=== PATIENT | male | born 1980 | race Caucasian/White ===

== ENCOUNTER 2018-04-07 12:05 | Outpatient (REF) | payer OTHER, SELFPAY ==
[2018-04-07 20:52] LABS: TSH 1.45 uIU/mL (0.358-3.74)
[2018-04-09 11:17] LABS: Lyme Ab w Rflx to Lyme Confirm Negative
== END 2018-04-07 12:25 ==
LOC: NCHCN 12:05
PROVIDERS: PCP Internal Medicine; Visit Provider Physician Assistant Medical
DX: R00.0 Tachycardia, unspecified (principal)
CPT/HCPCS: 84443; 86618

== ENCOUNTER 2018-06-24 09:12 | Outpatient (REF) | payer OTHER, SELFPAY ==
[2018-06-26 13:40] LABS: Chlamydia Result Negative; GC Result Negative; Specimen Description URINE
== END 2018-06-24 09:32 ==
LOC: NCHCN 09:12
PROVIDERS: PCP Internal Medicine; Visit Provider Physician Assistant Medical
DX: Z11.3 Encounter for screening for infections with a predominantly sexual mode of transmission (principal)
CPT/HCPCS: 87491; 87591

== ENCOUNTER 2018-07-10 16:44 | Outpatient (REF) | payer OTHER, SELFPAY ==
[2018-07-14 11:39] LABS: Syphilis Serology (RPR) Negative (Negative)
[2018-07-14 14:19] LABS: HIV-1/2 Ag & Ab Screen Negative (NEGAT)
== END 2018-07-10 17:04 ==
LOC: NCHCN 16:44
PROVIDERS: PCP Internal Medicine; Visit Provider Physician Assistant Medical
DX: Z11.3 Encounter for screening for infections with a predominantly sexual mode of transmission (principal); Z11.4 Encounter for screening for human immunodeficiency virus [HIV]
CPT/HCPCS: 87389; 86592

== ENCOUNTER 2019-12-15 16:18 | Outpatient (REF) | payer OTHER, SELFPAY ==
[2019-12-15 19:10] LABS: Iron 124 ug/dL (65-175); Total Iron Binding Capacity 313 ug/dL (250-450); Transferrin Sat 40 % (20-55)
[2019-12-15 19:39] LABS: Ferritin 156 ng/mL (26-388); TSH (W/Ref FT4) 1.17 uIU/mL (0.36-3.74); Vitamin B12 594 pg/mL (193-986)
[2019-12-17 04:40] LABS: Vitamin D 25 Total 18.1 ng/ml (30-100)
== END 2019-12-15 16:38 ==
LOC: NCHCN 16:18
PROVIDERS: PCP Internal Medicine; Visit Provider Physician Assistant
DX: R06.00 Dyspnea, unspecified (principal); R07.89 Other chest pain; R00.2 Palpitations
CPT/HCPCS: 82306; 82607; 82728; 83540; 83550; 84443

== ENCOUNTER → 2020-03-09 13:57 | Outpatient (REF) | payer OTHER, SELFPAY ==
[2020-03-09 15:01] LABS: Absolute Basophil Count 0.06 10^3/uL (0.0-0.2); Absolute Eosinophil Count 0.18 10^3/uL (0.0-0.7); Absolute Lymphocyte Count 1.81 10^3/uL (1.2-3.4); Absolute Neutrophil Count 2.08 10^3/uL (1.2-6.7); Basophils % 1.3; Eosinophils % 3.8; HCT 45.8 % (40.0-50.0); HGB 15.7 g/dL (13.5-17.5); Lymphocytes % 38.3; MCH 30.7 pg (27.0-33.0); MCHC 34.3 % (32.0-36.0); MCV 89.5 fL (80-95); MPV 9.6 fL (8.0-11.0); Monocytes % 12.7; Neutrophils % 43.9; Nucleated RBC 0 %; Platelet Count 284 10^3/uL (130-400); RBC 5.12 10^6/uL (4.36-5.78); RDW 11.9 % (11.8-14.1); RDW-SD 38.9 fL; WBC 4.73 10^3/uL (4.4-10.8)
[2020-03-09 15:24] LABS: ALT 45 U/L (16-63); AST 33 U/L (15-37); Albumin 3.6 g/dL (3.4-5.0); Alkaline Phosphatase 63 U/L (46-116); Anion Gap 9.2 mmol/L (3-11); BUN 19 mg/dL (7-18); Bilirubin, Total 0.7 mg/dL (0.2-1.0); C-Reactive Protein 0.43 mg/dL (0.0-0.3); CO2 24.8 mmol/L (21.0-32.0); CREATININE 1.04 mg/dL (0.70-1.30); Calcium 8.9 mg/dL (8.5-10.1); Chloride 103 mmol/L (98-107); Glucose 104 mg/dL (74-106); Potassium 4.1 mmol/L (3.5-5.1); Sodium 137 mmol/L (136-145); TSH (W/Ref FT4) 1.21 uIU/mL (0.36-3.74); Total Protein 7.6 g/dL (6.4-8.2)
[2020-03-09 21:29] LABS: Rheumatoid Factor <8.6 IU/mL (<12.0)
[2020-03-10 10:10] LABS: Lyme Ab w Rflx to Lyme Confirm Negative (Negative)
[2020-03-10 14:17] LABS: ANA Interpretation Negative (Negative)
[2020-03-15 11:48] LABS: Anaplasma phagocytophilum Negative (Negative); B. miyamotoi PCR Negative (Negative); Babesia divergens/MO-1 Negative (Negative); Babesia duncani Negative (Negative); Babesia microti Negative (Negative); Ehrlichia chaffeensis Negative (Negative); Ehrlichia ewingii/canis Negative (Negative); Ehrlichia muris eauclairensis Negative (Negative)
== END ==
LOC: NCHCN 13:57
PROVIDERS: PCP Internal Medicine; Visit Provider Family Medicine
DX: R53.83 Other fatigue (principal); M25.59 Pain in other specified joint
CPT/HCPCS: 80053; 87798; 84443; 85025; 86038; 86140; 86431; 86618

== ENCOUNTER 2020-12-09 09:18 | Outpatient (CLI) | payer OTHER, SELFPAY ==
--- NOTE | 2020-12-09 13:42 | NUR.NOTE ---
Nursing Note: Pt arrived to [facility] infusion ambulating independently. RN noted Pt to be Ashen, SOB, advised of Chest pain 5/10, which worsens when he coughs. V/S 131/80, P107, T100.7, RR22, O2 90%. Lungs clear b/l upper lobes and LLL, RLL diminished. Heart Tachycardic S1/S2, Pt coughing productive cough, sitting in tripod position after coughing and stated he was SOB. RN consulted Mariah Taveras RN Manager of COVID unit, RN advised Pt should be seen in ED prior to receiving infusion. RN advised Pt d/t current symptoms he should be evaluated by ED prior to infusion. Pt verbalized agreement, RN and EMT Nayely assisted Pt to ED via wheelchair. Report given to JOSE Ledesma in ED.
== END 2020-12-09 09:19 | disposition home or self-care (01) ==
LOC: INF 09:20
PROVIDERS: PCP Internal Medicine; Visit Provider Family Medicine
DX: U07.1 COVID-19 (principal); R06.02 Shortness of breath

== ENCOUNTER 2020-12-09 13:23 | Inpatient (IN) | payer OTHER, MEDICAID, SELFPAY ==
[2020-12-09] VITALS (73 sets, daily range): BP systolic 122–145; BP diastolic 38–80; PULSE 76–100; RESP 12–32; TEMP 37–37.8; O2SAT 92–97
--- NOTE | 2020-12-09 13:15 | RT.EKG_ITS ---
APPROVED REPORT Exam: Resting ECG Reason for Exam: chest pain Patient Location: E HR:97 bpm ECG Measurements Heart Rate 97 AXIS KS 144 P 33 QRSd 91 QRS 27 QT 345 T -5 QTc 440 Conclusion Sinus rhythm...normal P axis, V-rate 60- 99 Nonspecific T abnormalities, lateral leads...T <-0.10mV, I aVL V5 V6 Physician: no stemi. Q3T3
[2020-12-09] MEDS: Ondansetron 4 MG/2 ML VIAL IVP (14:11)
[2020-12-09] MEDS: Normal Saline 1,000 ML 1000 ML IV ×2 (14:11→15:09)
[2020-12-09] MEDS: ACETAMINOPHEN 1,000 MG/100 ML BTL 400 MG IVPB (14:11)
[2020-12-09 14:24] LABS: Abs Immature Grans 0.04 10^3/uL (0.0-0.06); Absolute Basophil Count 0.01 10^3/uL (0.0-0.2); Absolute Lymphocyte Count 0.63 10^3/uL (1.2-3.4); Absolute Monocyte Count 0.34 10^3/uL (0.1-0.8); Absolute Neutrophil Count 5.88 10^3/uL (1.2-6.7); Basophils % 0.1; HCT 41.7 % (40.0-50.0); HGB 14.6 g/dL (13.5-17.5); Immature Grans % 0.6; Lymphocytes % 9.1; MCH 30.8 pg (27.0-33.0); MPV 9.4 fL (8.0-11.0); Monocytes % 4.9; Neutrophils % 85.3; Nucleated RBC 0 %; Platelet Count 211 10^3/uL (130-400); RBC 4.74 10^6/uL (4.36-5.78); RDW 11.8 % (11.8-14.1)
[2020-12-09 14:25] LABS: Lactate 1.7 mmol/L (0.6-1.4)
[2020-12-09 14:39] LABS: Magnesium 2.3 mg/dL (1.8-2.4)
[2020-12-09 14:40] LABS: Diff Comment Agrees w/ Instrument; RBC Morphology Normal
[2020-12-09 14:55] LABS: ALT 108 U/L (16-63); AST 271 U/L (15-37); Albumin 2.9 g/dL (3.4-5.0); Alkaline Phosphatase 50 U/L (46-116); BUN 17 mg/dL (7-18); Bilirubin, Total 0.9 mg/dL (0.2-1.0); C-Reactive Protein 15.62 mg/dL (0.0-0.3); CREATININE 1.1 mg/dL (0.70-1.30); Calcium 8.9 mg/dL (8.5-10.1); Chloride 97 mmol/L (98-107); D-Dimer 2001 ng/mlFEU (<500); Glucose 123 mg/dL (74-106); NT-proBNP 30 pg/mL (<300); Potassium 3.3 mmol/L (3.5-5.1); Sodium 134 mmol/L (136-145); Total Protein 7.9 g/dL (6.4-8.2)
[2020-12-09 14:56] LABS: Creatine Kinase > 10000 U/L (39-308)
[2020-12-09 14:57] LABS: Troponin I < 0.05 ng/mL (<0.06)
[2020-12-09 15:51] LABS: Ferritin 1669 ng/mL (26-388)
--- NOTE | 2020-12-09 15:57 | ED.GENADUL_ITS ---
Discharge Plan Disposition Patient Disposition: [facility] INPATIENT Condition: Stable Discharge Details Clinical Impression: COVID-19, Rhabdomyolysis, Hypoxia Admit Date/Time: 12/09/20 19:05 Admit Provider: Aditya Acuña Attending Provider: Aditya Acuña Primary Care Provider: Odilon Alejo ED Provider: Krysta Nunn Discharge Data Discharge Date/Time-TO BE ENTERED AT DEPARTURE: 12/09/20 20:13 Medical Decision Making <MARIAM Gruber Last Filed: 12/10/20 20:03> Patient is satting at 90% on room air in a supine position, I am unable to ambulate the patient secondary to weakness He is not actively vomiting His CPK is greater than 10,000 this is concerning, his D-dimer is 2000, CTA pending Troponin is negative and EKG shows some nonspecific T wave changes in the lateral leads, no prior to compare, his chest pain is exacerbated by coughing and deep breathing. Denies any history of cardiac disease. Denies any new calf pain or swelling. Denies prior history of coagulopathy. Lactate 1.7 Received 2 L of saline for the elevation of CPK and suspected rhabdomyolysis related to COVID-19, he has an infusion at 125 an hour and has received 20 mEq of potassium supplement His CRP is elevated at 15 and his LFTs are elevated as well Patient will be signed out to Krysta dias PA-C pending CTA evaluation Patient agreeable to admission at this time Resting comfortably on 1 L of oxygen, 95 <MARIA M Scruggs - Last Filed: 12/09/20 19:10> Care transition myself from Ramandeep Castro PA-C. Please see her initial note regarding history, presentation and exam. In brief, patient is a pleasant 40-year-old male presenting today with chief complaint of shortness of breath. Patient is Covid positive. Is currently needing 1 L of oxygen to be comfortable and maintain O2 above 90%. Patient was not found to have an elevated CK and is in rhabdomyolysis. D-dimer was ordered and found to be 2000. Pulmonary critical care, CTA for PE is pending. Ultimately, patient will need admission for his hypoxemia as well as rhabdomyolysis. Of note, GFR is over 60. FINDINGS: Pulmonary arteries: Normal. No pulmonary emboli. Aorta: Unremarkable. No aortic aneurysm. No aortic dissection. Lungs: Unremarkable. No consolidation. No masses. Pleural spaces: Unremarkable. No pneumothorax. No pleural effusion. Heart: Unremarkable. No cardiomegaly. No pericardial effusion. Lymph nodes: Unremarkable. No enlarged lymph nodes. Diaphragm: Small hiatal hernia. Bones/joints: Unremarkable. No acute fracture. Soft tissues: Unremarkable. Other findings: Diffuse multi lobar areas of well demarcated ground-glass opacities. IMPRESSION: 1. No evidence of pulmonary embolism. 2. Moderate multi lobar atypical pneumonia. Differential diagnosis includes viral (including COVID19), fungal or bacterial pathogens. 3. Small hiatal hernia. ] Discussed findings with the patient. He has received Dexamethasone. Provider held off on remdesivir secondary to the transaminitis and recommendation from pharmacy. Patient continues to be receiving IV hydration as well 1 L nasal cannula oxygen for his hypoxemia. Will consult hospitalist regarding admission Consulted with hospitalist who agreed to admission. Enrique stop IV fluids. HPI <MARIA M Gruber - Last Filed: 12/10/20 20:03> General Mode of arrival: ambulatory . Date/Time Provider Initiated Documentation: 12/09/20 13:25 . Limitations to Documentation: no limitations . Information obtained by: patient . HPI Narrative: This 40-year-old male who is otherwise healthy aside from history of tachycardia which for which he takes metoprolol and chronic Lyme for which he takes tetracycline presents with report of weakness, vomiting, shortness of breath, dyspnea with exertion. Patient states that he has been sick since Saturday of last week, he is on day 9 and has been Covid positive last . He is feeling fine 3 days ago and his symptoms began to worsen. He denies any falls or injuries. His son is sick with similar symptoms. He is not vaccinated. He does not smoke tobacco. Denies history of COPD and asthma. Patient vomiting several times a day. Denies any diarrhea. Has had some intermittent chest discomfort which she attributes to coughing. Related Data Home Medications Medication Instructions Recorded Confirmed [id number] 2 tab PO ONCE 12/09/20 12/09/20 [Excedrin Extra Strength] metoprolol tartrate 25 mg PO BID 12/09/20 12/09/20 tetracycline 250 mg PO TID 12/09/20 12/09/20 Allergies Allergy/AdvReac Type Severity Reaction Status Date / Time Sulfa (Sulfonamide Allergy Unknown Verified 12/09/20 14:05 Antibiotics) General Stated Complaint: GenMedical JC: 2 Review of Systems <MARIA M Gruber Last Filed: 12/10/20 20:03> All systems reviewed & are unremarkable except as noted in HPI and below PFSH <MARIA M Gruber - Last Filed: 12/10/20 20:03> Medical History (Updated 12/10/20 @ 01:36 by Aditya Acuña) History of Lyme disease History of tachycardia Surgical History (Updated 12/10/20 @ 01:28 by Aditya Acuña) History of arthroscopic knee surgery Right knee meniscus surgery Social History Smoking/Tobacco Use Status: Never Smoking risk assessment performed?: Yes Alcohol Intake: never Drug use: Never Substance use type: does not use Do you feel safe at home: Yes Do you feel safe in your relationship?: Yes Exam <MARIA M Gruber Last Filed: 12/10/20 20:03> Const General: cooperative and comfortable HENMT Mouth: oral mucosae normal Eyes Pupils: PERRL Resp Effort & Inspection: normal respiratory effort and able to speak in complete sentences Cardio Rate: regular rate Rhythm: regular rhythm GI Inspection: normal to inspection Auscultation: normal bowel sounds Skin General skin exam: no rashes or lesions noted Wounds: no wounds Neuro General: patient alert and patient oriented x3 Extrem Other: Distal pulses intact, no peripheral edema Course <MARIA M Gruber Last Filed: 12/10/20 20:03> Vital Signs Vital signs: Vital Signs Pulse 98 H 12/09/20 13:40 Respiratory Rate 22 12/09/20 13:40 Blood Pressure 125/79 12/09/20 13:40 Temperature 37.8 C H 12/09/20 14:53 Temperature Source Skin 12/09/20 14:53 Pulse 91 H 12/09/20 14:53 Pulse 90 12/09/20 14:40 Respiratory Rate 28 H 12/09/20 14:53 Respiratory Effort 12/09/20 14:21 Respiratory Depth Normal 12/09/20 14:21 Respiratory Pattern Normal 12/09/20 14:21 Blood Pressure 126/68 12/09/20 14:53 Blood Pressure Mean 85 12/09/20 14:31 Blood Pressure Position Sitting 12/09/20 13:57 Pulse Oximetry 96 12/09/20 15:06 Oxygen Delivery Method Nasal Cannula 12/09/20 15:06 Oxygen Flow Rate 1.5 12/09/20 15:06 Pain Level 8 12/09/20 13:57 Comment 12/09/20 14:53 Lab/Test Results Lab/Test Results: 12/09/20 14:45 Blood Blood Culture - Pending 12/09/20 14:08 Blood Blood Culture - Pending Laboratory Tests Range/Units 12/09/20 12/09/20 12/09/20 14:08 14:08 14:08 WBC (4.4-10.8) 10^3/uL 6.90 RBC (4.36-5.78) 10^6/uL 4.74 Hgb (13.5-17.5) g/dL 14.6 Hct (40.0-50.0) % 41.7 MCV (80-95) fL 88.0 MCH (27.0-33.0) pg 30.8 MCHC (32.0-36.0) % 35.0 RDW (11.8-14.1) % 11.8 Plt Count (130-400) 10^3/uL 211 MPV (8.0-11.0) fL 9.4 Immature Gran % 0.6 Neutrophils % 85.3 Lymphocytes % 9.1 Monocytes % 4.9 Eosinophils % 0.0 Basophils % 0.1 Nucleated RBC % % 0 Absolute Neutrophils (1.2-6.7) 10^3/uL 5.88 Absolute Lymphocytes (1.2-3.4) 10^3/uL 0.63 L Absolute Monocytes (0.1-0.8) 10^3/uL 0.34 Absolute Eosinophils (0.0-0.7) 10^3/uL 0.00 Absolute Basophils (0.0-0.2) 10^3/uL 0.01 RBC Morphology Normal D-Dimer (<500) ng/mlFEU 2000 H VBG Lactate (0.6-1.4) mmol/L Sodium (136-145) mmol/L 134 L Potassium (3.5-5.1) mmol/L 3.3 L Chloride (98-107) mmol/L 97 L Carbon Dioxide (21.0-32.0) mmol/L 29.0 Anion Gap (3-11) mmol/L 8.0 BUN (7-18) mg/dL 17 Creatinine (0.70-1.30) mg/dL 1.1 Estimated GFR/1.73 m2 (mL/min/1.73m2) >= 60.00 Glucose (74-106) mg/dL 123 H Calcium (8.5-10.1) mg/dL 8.9 Magnesium (1.8-2.4) mg/dL Ferritin (26-388) ng/mL 1669 H Total Bilirubin (0.2-1.0) mg/dL 0.9 AST (15-37) U/L 271 H ALT (16-63) U/L 108 H Alkaline Phosphatase (46-116) U/L 50 Creatine Kinase (39-308) U/L > 39210 H Troponin I (<0.06) ng/mL < 0.05 C-Reactive Protein (0.0-0.3) mg/dL 15.62 H NT-Pro-B Natriuret Pep (<300) pg/mL 30 Total Protein (6.4-8.2) g/dL 7.9 Albumin (3.4-5.0) g/dL 2.9 L Range/Units 12/09/20 12/09/20 14:08 14:08 WBC (4.4-10.8) 10^3/uL RBC (4.36-5.78) 10^6/uL Hgb (13.5-17.5) g/dL Hct (40.0-50.0) % MCV (80-95) fL MCH (27.0-33.0) pg MCHC (32.0-36.0) % RDW (11.8-14.1) % Plt Count (130-400) 10^3/uL MPV (8.0-11.0) fL Immature Gran % Neutrophils % Lymphocytes % Monocytes % Eosinophils % Basophils % Nucleated RBC % % Absolute Neutrophils (1.2-6.7) 10^3/uL Absolute Lymphocytes (1.2-3.4) 10^3/uL Absolute Monocytes (0.1-0.8) 10^3/uL Absolute Eosinophils (0.0-0.7) 10^3/uL Absolute Basophils (0.0-0.2) 10^3/uL RBC Morphology D-Dimer (<500) ng/mlFEU VBG Lactate (0.6-1.4) mmol/L 1.7 H Sodium (136-145) mmol/L Potassium (3.5-5.1) mmol/L Chloride (98-107) mmol/L Carbon Dioxide (21.0-32.0) mmol/L Anion Gap (3-11) mmol/L BUN (7-18) mg/dL Creatinine (0.70-1.30) mg/dL Estimated GFR/1.73 m2 (mL/min/1.73m2) Glucose (74-106) mg/dL Calcium (8.5-10.1) mg/dL Magnesium (1.8-2.4) mg/dL 2.3 Ferritin (26-388) ng/mL Total Bilirubin (0.2-1.0) mg/dL AST (15-37) U/L ALT (16-63) U/L Alkaline Phosphatase (46-116) U/L Creatine Kinase (39-308) U/L Troponin I (<0.06) ng/mL C-Reactive Protein (0.0-0.3) mg/dL NT-Pro-B Natriuret Pep (<300) pg/mL Total Protein (6.4-8.2) g/dL Albumin (3.4-5.0) g/dL Sign Out <MARIA M Gruber - Last Filed: 12/10/20 20:03> Sign Out Data: Sign Out Comment: pending cta and admission Last updated by Ramandeep Castro PA at 12/09/20 16:13
[2020-12-09] MEDS: Dexamethasone 4 MG/ML VIAL 6 MG IVP (16:21)
[2020-12-09] MEDS: Potassium Chloride 20 MEQ TABCR PO (16:22)
[2020-12-09 16:47] LABS: Bilirubin Negative (Negative); Blood Moderate (Negative); Clarity Clear (Clear); Glucose Negative (Negative); Ketones 80 mg/dL (Negative); Leukocyte Esterase Negative (Negative); Nitrite Negative (Negative); Specific Gravity >= 1.030 (1.005-1.025); pH 6.5 (5-8)
[2020-12-09 16:54] LABS: Bacteria Moderate HPF (Negative); C & S Indicated? Yes; Casts 0-2 Hyaline LPF (Negative); Crystals Negative HPF (Negative); Epithelial Cells Few HPF (Negative); Mucus Moderate (Negative)
[2020-12-09] MEDS: Normal Saline 1,000 ML 125 ML IV (16:58)
--- NOTE | 2020-12-09 17:09 | DI.CT_ITS ---
Exam(s) CT CHEST PE CTA EXAM: CT CHEST PE CTA CLINICAL HISTORY: covid +, SOB, elevated dimer. TECHNIQUE: Imaging Protocol: CT angiography of the chest was performed using pulmonary embolus gurmeet col. Multi planar reconstructions were performed. CONTRAST MATERIAL: Intravenous: Omnipaque 350 Contrast volume: 100 cc COMPARISON: No exams were available for comparison FINDINGS: CHEST: PULMONARY ARTERIES: Less than optimal bolus injection. No central pulmonary emboli. No obvious embo li more peripherally realized limitations of this study. LUNGS: There are extensive confluent ground-glass infiltrates throughout both lungs, relatively symme trical and suspicious for Covid-19 pneumonia.. There are no pleural effusions. No significant focal findings in trachea and mainstem bronchi. MEDIASTINUM: There is slightly enlarged lymph nodes in both hilum. There is subcarinal adenopathy. CARDIAC: Heart size is upper normal. There is no pericardial effusion.Caliber of the thoracic aorta is within normal limits. There is no significant shift of the interventricular septum. PARTIALLY VISUALIZED UPPERMOST ABDOMEN: Hepatic steatosis. No adrenal masses. Moderate-sized hiatal hernia. OSSEOUS: No significant osseous lesions.. IMPRESSION: 1. Main finding here is extensive bilateral relatively symmetrical lung infiltrates consistent with p robable Covid-19 pneumonia..There are no pleural effusions but there is mild bilateral hilar adenopat hy and significant subcarinal adenopathy. 2. No obvious pulmonary emboli. 3. Hiatal hernia. Hepatic steatosis. Study 1st read by [facility]. RADIATION DOSE DELIVERED: 520.36mGy.cm Total DLP DATA REPOSITORY: All CT scans at this facility are submitted to the National Radiology Data Registry (NRDR) Dose Index Registry (DIR) with the [employer] ([employer]). RADIATION OPTIMIZATION: All CT scans at this facility use at least one of these dose optimization te chniques: automated exposure control; mA and/or kV adjustment per patient size (includes targeted exa ms where dose is matched to clinical indication); or iterative reconstruction.
[2020-12-09] MEDS: Normal Saline - Diluent 50 ML VIAL IV (17:59)
[2020-12-09] MEDS: Normal Saline Flush 10 ML SYR IVP (18:00)
[2020-12-09] MEDS: Omnipaque 350 MG/ML 100 ML BTL IJ (18:00)
--- NOTE | 2020-12-09 18:42 | DI.VRAD_ITS ---
PROCEDURE INFORMATION: Exam: CTA Chest With Contrast Exam date and time: 12/09/2020 6:11 PM Age: 40 years old Clinical indication: Other: Covid +, SOB, elevated d dimer TECHNIQUE: Imaging protocol: Computed tomographic angiography of the chest with contrast. 3D rendering (Not supervised by radiologist): MIP and/or 3D reconstructed images were created by the technologist. Radiation optimization: All CT scans at this facility use at least one of these dose optimization techniques: automated exposure control; mA and/or kV adjustment per patient size (includes targeted exams where dose is matched to clinical indication); or iterative reconstruction. Contrast material: OMNIPAQUE 350; Contrast volume: 100 ml; Contrast route: INTRAVENOUS (IV); COMPARISON: No relevant prior studies available. FINDINGS: Pulmonary arteries: Normal. No pulmonary emboli. Aorta: Unremarkable. No aortic aneurysm. No aortic dissection. Lungs: Unremarkable. No consolidation. No masses. Pleural spaces: Unremarkable. No pneumothorax. No pleural effusion. Heart: Unremarkable. No cardiomegaly. No pericardial effusion. Lymph nodes: Unremarkable. No enlarged lymph nodes. Diaphragm: Small hiatal hernia. Bones/joints: Unremarkable. No acute fracture. Soft tissues: Unremarkable. Other findings: Diffuse multi lobar areas of well demarcated ground-glass opacities. IMPRESSION: 1. No evidence of pulmonary embolism. 2. Moderate multi lobar atypical pneumonia. Differential diagnosis includes viral (including COVID-19), fungal or bacterial pathogens. 3. Small hiatal hernia. Dictated and Authenticated by: Keven Montero MD. Ordering:LAYLA Chaparro MD
[2020-12-09 19:15] LABS: Source Nasal/Nares
[2020-12-09 19:56] LABS: COVID-19 PCR POSITIVE (Negative)
--- NOTE | 2020-12-09 19:57 | NUR.NOTE ---
Lab calls critical result; Covid positive. BP, PA notified.Nursing Note:
[2020-12-09 20:23] LABS: Procalcitonin < 0.1 ng/mL
[2020-12-09] MEDS: Cholecalciferol (Vitamin D3) 1,000 UNIT TAB 2000 UNITS PO (22:12)
[2020-12-09] MEDS: Enoxaparin 40 MG/0.4 ML SYR SC (22:12)
[2020-12-09] MEDS: Famotidine 20 MG TAB PO (22:13)
[2020-12-09] MEDS: Zinc Sulfate 220 MG TAB PO (22:13)
--- NOTE | 2020-12-09 23:29 | HPE_ITS ---
Date of service: 12/09/20 Time of Service: 19:00 Assessment and Plan Assessment and plan (1) COVID-19: Status: Acute Assessment and plan: Continue daily Decadron. Begin Pepcid. Because of his LFTs elevation I have withheld starting him on atorvastatin or Remdesivir. I will start the patient on baricitinib based on current recommendations from up-to-date. If his LFTs continue to climb we will have to withhold baricitinib. If his LFTs remain stable or decline we will add Remdesivir. I have encouraged patient to practice proning and sitting up and walk around the room to prevent atelectasis. I have ordered incentive spirometry as well as Acapella device. Because of the fevers we have ordered blood cultures and he will be started on Rocephin and doxycycline intravenously. Initiate Lovenox 30 mg subcutaneously BID for DVT prophylaxis. Monitor daily inflammatory markers including CRP and D-dimer and ferritin. Begin vitamin C and vitamin D as well as zinc and multivitamin. (2) Rhabdomyolysis: Status: Acute Assessment and plan: Monitor renal function and daily CPK. Avoid additional IV fluids as long as he is making adequate urine output and BUN/creatinine remained stable. Qualifiers: Rhabdomyolysis type: non-traumatic Qualified Code(s): M62.82 - Rhabdomyolysis (3) Elevated transaminase level: Status: Acute Assessment and plan: Probably due to Covid induced injury. However will check hepatitis studies as well as HIV status. If LFTs continue to climb we will need to get an ultrasound of his liver. (4) DVT prophylaxis: Status: Acute Assessment and plan: Lovenox 40 mg was given tonight. We will change her to 30 mg twice daily starting tomorrow. Continue to monitor daily D-dimer. CTA of the chest was negative for PE and he has no physical evidence for DVT. History of Present Illness History of Present Illness Chief Complaint: Dyspnea Narrative: 40-year-old male non-smoker with no history of chronic lung or cardiac disease but a remote history of Lyme disease with chronic arthralgias for which she chronically takes doxycycline and a history of a tachycardia for which he takes metoprolol presented to the emergency department with 8 days of fatigue, nausea vomiting and now shortness of breath that began yesterday and worsened today. Denies any purulent sputum or hemoptysis. Some mild chest pain only with coughing. Coughing has worsened in the last couple of days. He had a positive Covid test last after being exposed to Covid by his son who is 15 years old. Neither the patient nor his son have been vaccinated. Patient denies any calf pain or swelling or leg swelling. Patient had presented today in the outpatient infusion center to receive monoclonal antibody infusion for his COVID-19 but when i nfusion nurses found him to be coughing and short of breath and to be mildly hypoxemic he was sent to the emergency department. Evaluation ER included routine labs including a CBC that was unremarkable except for a mild lymphocytopenia, CMP demonstrated hypokalemia of 3.3 with normal renal function with a creatinine 1.1. LFTs were increased with AST of 271 and ALT of 108 with a normal alkaline phosphatase of 50 and a total bilirubin that was normal at 0.9. CK was elevated greater than 10,000 and his CRP was increased to 15.6. Ferritin was high at 1669. Procalcitonin was not checked but has since been ordered and came back normal at less than 0.1. His D-dimer was elevated at 2000. Patient underwent CT scan of his chest with contrast to rule out a PE. No PE was seen but he has moderate multi lobar atypical pneumonia and small hiatal hernia. Patient was given 2 L of fluids in the emergency department for treatment of his rhabdomyolysis. He was started on Decadron 6 mg IV. Remdesivir was not given due to his elevated LFTs. He was mildly hypoxic but this was readily corrected with 1 to 2 L of oxygen per nasal cannula. He is now admitted to the medical/surgical unit for treatment of Covid pneumonia. His pneumonia is classified as mild to moderate. I am withholding remdesivir until we see what is repeat LFTs are in the morning. If his liver enzymes do not continue to increase and if his oxygen requirements are increasing then I will consider adding Remdesivir and baricitinib. Review of Systems All systems reviewed & are unremarkable except as noted in HPI and below PFSH Medical History (Updated 12/10/20 @ 01:36 by Aditya Acuña) History of Lyme disease History of tachycardia Surgical History (Updated 12/10/20 @ 01:28 by Aditya Acuña) History of arthroscopic knee surgery Right knee meniscus surgery Social History (Reviewed 12/10/20 @ 01:27 by Aditya Hawkins Smoking/Tobacco Use Status: Never Smoking risk assessment performed?: Yes Alcohol Intake: never Drug use: Never Substance use type: does not use Do you feel safe at home: Yes Do you feel safe in your relationship?: Yes Meds Allergies and Home Medications Allergies Allergy/AdvReac Type Severity Reaction Status Date / Time Sulfa (Sulfonamide Allergy Unknown Verified 12/09/20 14:05 Antibiotics) Home Medications Medication Instructions Recorded Confirmed Type [id number] 2 tab PO ONCE 12/09/20 12/09/20 History [Excedrin Extra Strength] metoprolol tartrate 25 mg PO BID 12/09/20 12/09/20 History tetracycline 250 mg PO TID 12/09/20 12/09/20 History Exam Narrative Exam Narrative: Obese white male lying in bed flat on his back not acutely dyspneic. Not tachypneic and not using accessory respiratory muscles. He is alert and oriented person place time circumstance. HEENT is unremarkable. Neck is supple nontender no JVD normal carotid pulses no bruits Lungs with diffuse fine rales bilaterally in all lorenzo. No rhonchi no wheezing Heart is regular rate and rhythm no murmur rub or gallop Abdomen is obese soft nontender no palpable masses no guarding no organomegaly Lower extremities without peripheral cyanosis or edema no calf tenderness. Upper extremities with normal range of motion and strength. Neuro exam grossly intact no focal cranial nerve deficits no focal motor or sensory deficits. Results Labs Result diagrams: 12/09/20 14:08 12/09/20 14:08 Labs: Laboratory Results - last 24 hr 12/09/20 12/09/20 12/09/20 14:08 14:08 14:08 WBC 6.90 RBC 4.74 Hgb 14.6 Hct 41.7 MCV 88.0 MCH 30.8 MCHC 35.0 RDW 11.8 Plt Count 211 MPV 9.4 Immature Gran % 0.6 Neutrophils % 85.3 Lymphocytes % 9.1 Monocytes % 4.9 Eosinophils % 0.0 Basophils % 0.1 Nucleated RBC % 0 Absolute Neutrophils 5.88 Absolute Lymphocytes 0.63 L Absolute Monocytes 0.34 Absolute Eosinophils 0.00 Absolute Basophils 0.01 RBC Morphology Normal D-Dimer 2001 H VBG Lactate Sodium 134 L Potassium 3.3 L Chloride 97 L Carbon Dioxide 29.0 Anion Gap 8.0 BUN 17 Creatinine 1.1 Estimated GFR/1.73 m2 >= 60.00 Glucose 123 H Calcium 8.9 Magnesium Ferritin 1669 H Total Bilirubin 0.9 AST 271 H ALT 108 H Alkaline Phosphatase 50 Creatine Kinase > 56968 H Troponin I < 0.05 C-Reactive Protein 15.62 H NT-Pro-B Natriuret Pep 30 Total Protein 7.9 Albumin 2.9 L Procalcitonin Urine Color Urine Clarity Urine pH Ur Specific [place] Urine Protein Urine Ketones Urine Blood Urine Nitrite Urine Bilirubin Urine Urobilinogen Ur Leukocyte Esterase Urine RBC Urine WBC Ur Epithelial Cells Urine Crystals Urine Bacteria Urine Casts Urine Mucus Ur Culture Indicated? Urine Glucose COVID-19 Source SARS-CoV-2 (PCR) Patient ABO/Rh 12/09/20 12/09/20 12/09/20 14:08 14:08 16:15 WBC RBC Hgb Hct MCV MCH MCHC RDW Plt Count MPV Immature Gran % Neutrophils % Lymphocytes % Monocytes % Eosinophils % Basophils % Nucleated RBC % Absolute Neutrophils Absolute Lymphocytes Absolute Monocytes Absolute Eosinophils Absolute Basophils RBC Morphology D-Dimer VBG Lactate 1.7 H Sodium Potassium Chloride Carbon Dioxide Anion Gap BUN Creatinine Estimated GFR/1.73 m2 Glucose Calcium Magnesium 2.3 Ferritin Total Bilirubin AST ALT Alkaline Phosphatase Creatine Kinase Troponin I C-Reactive Protein NT-Pro-B Natriuret Pep Total Protein Albumin Procalcitonin Urine Color Yellow Urine Clarity Clear Urine pH 6.5 Ur Specific [place] >= 1.030 H Urine Protein 100 H Urine Ketones 80 H Urine Blood Moderate H Urine Nitrite Negative Urine Bilirubin Negative Urine Urobilinogen 1.0 H Ur Leukocyte Esterase Negative Urine RBC 5-10 H Urine WBC 3-5 Ur Epithelial Cells Few Urine Crystals Negative Urine Bacteria Moderate Urine Casts 0-2 Hyaline Urine Mucus Moderate Ur Culture Indicated? Yes Urine Glucose Negative COVID-19 Source SARS-CoV-2 (PCR) Patient ABO/Rh 12/09/20 12/09/20 12/09/20 19:12 19:30 19:50 WBC RBC Hgb Hct MCV MCH MCHC RDW Plt Count MPV Immature Gran % Neutrophils % Lymphocytes % Monocytes % Eosinophils % Basophils % Nucleated RBC % Absolute Neutrophils Absolute Lymphocytes Absolute Monocytes Absolute Eosinophils Absolute Basophils RBC Morphology D-Dimer VBG Lactate Sodium Potassium Chloride Carbon Dioxide Anion Gap BUN Creatinine Estimated GFR/1.73 m2 Glucose Calcium Magnesium Ferritin Total Bilirubin AST ALT Alkaline Phosphatase Creatine Kinase Troponin I C-Reactive Protein NT-Pro-B Natriuret Pep Total Protein Albumin Procalcitonin < 0.1 Urine Color Urine Clarity Urine pH Ur Specific [place] Urine Protein Urine Ketones Urine Blood Urine Nitrite Urine Bilirubin Urine Urobilinogen Ur Leukocyte Esterase Urine RBC Urine WBC Ur Epithelial Cells Urine Crystals Urine Bacteria Urine Casts Urine Mucus Ur Culture Indicated? Urine Glucose COVID-19 Source Nasal/Nares SARS-CoV-2 (PCR) POSITIVE A* Patient ABO/Rh O Positive Last Vital Signs Temp 37.7 C H 12/09/20 20:25 Pulse 91 H 12/09/20 20:47 Resp 16 12/09/20 20:25 BP 136/79 12/09/20 20:25 Pulse Ox 94 12/09/20 20:25
[2020-12-10] VITALS (22 sets, daily range): BP systolic 108–139; BP diastolic 61–84; PULSE 75–101; RESP 16–22; TEMP 36.4–38.6; O2SAT 89–95
[2020-12-10] MEDS: Melatonin 3 MG TAB 6 MG PO (00:10)
[2020-12-10] MEDS: Acetaminophen 325 MG TAB 650 MG PO (00:24)
[2020-12-10] MEDS: DOXYCYCLINE 100 MG in Normal Saline 100 ML IVPB ×2 (03:48→15:54)
[2020-12-10] MEDS: Normal Saline Flush 10 ML SYR IVP ×3 (03:49→08:21)
[2020-12-10] MEDS: cefTRIAXone 2 GM/50 ML BAG IV (05:43)
--- NOTE | 2020-12-10 07:35 | INITIAL_ITS ---
- If Service Date Differs Date of service: 12/10/20 Time of Service: 07:36 Care Management Initial Assess REASON FOR HOSPITALIZATION:: Covid 19 pneumonia, Elevated transaminase level PAST MEDICAL HISTORY/PAST SURGICAL HISTORY:: Medical History (Updated 12/10/20 @ 01:36 by Aditya Acuña). History of Lyme disease. History of tachycardia. Surgical History (Updated 12/10/20 @ 01:28 by Aditya Acuña). History of arthroscopic knee surgery. Right knee meniscus surgery PREVIOUS FUNCTIONAL STATUS/SOCIAL/FAMILY SUPPORTS:: Kosta lives in [place], [place] with his 15 year old son. Kosta is independent at baseline and drives. He is currently unemployed and would like information on Medicaid and financial assistance. CM provided him with applications for both programs and will continue to support discharge planning needs. CURRENT FUNCTIONAL STATUS:: CM met with Kosta over the phone due to covid precautions. He shares that his son is also getting over Covid, and fortunately is doing quite well. Kosta is independent at baseline and drives. He shares that he is currently unemployed and although he has insurance he would like information about Medicaid and financial assistance through the hospital. CM provided patient with applications and will continue to support discharge planning needs. ADVANCE DIRECTIVES:: None on file at [facility] Has patient been provided with info about the portal/API?: Yes Did the patient sign up for the portal?: No CODE STATUS:: Full Code INSURANCE COVERAGE / FINANCIAL ISSUES:: [employer] CURRENT HOME/COMMUNITY SERVICES/EQUIPMENT:: None PRIMARY CARE PHYSICIAN:: Odilon Alejo, [facility] POTENTIAL DISCHARGE NEEDS:: Follow up appointments, referral to community connections PATIENT/FAMILY EDUCATION NEEDS:: Review discharge instructions, limitations and plan to follow up with community providers. ask me three. TRANSPORTATION:: via private vehicle located in the parking lot. PLAN:: Anticipate Kosta will be discharged home via private vehicle when medically cleared by MD. His need for home O2 and VNA services is undetermined at this time. CM will continue to support discharge planning needs.
[2020-12-10 08:00] LABS: HCT 38.7 % (40.0-50.0); HGB 13.1 g/dL (13.5-17.5); MCH 30.5 pg (27.0-33.0); MCHC 33.9 % (32.0-36.0); MPV 9.7 fL (8.0-11.0); Nucleated RBC 0 %; Platelet Count 236 10^3/uL (130-400); RDW 12.1 % (11.8-14.1); RDW-SD 39.8 fL; WBC 11.52 10^3/uL (4.4-10.8)
[2020-12-10 08:15] LABS: Absolute Monocyte Count 0.35 10^3/uL (0.1-0.8)
[2020-12-10 08:18] LABS: Absolute Lymphocyte Count 0.46 10^3/uL (1.2-3.4); Absolute Neutrophil Count 10.37 10^3/uL (1.2-6.7); Bands % 5; Diff Comment Manual Differential; RBC Morphology Normal
[2020-12-10] MEDS: Enoxaparin 30 MG/0.3 ML SYR SC ×2 (08:22→20:15)
[2020-12-10] MEDS: Furosemide 20 MG TAB PO ×2 (08:23→15:54)
[2020-12-10] MEDS: Potassium Chloride 20 MEQ TABCR PO ×2 (08:24→20:14)
[2020-12-10] MEDS: Famotidine 20 MG TAB PO ×2 (08:24→20:15)
[2020-12-10] MEDS: Dexamethasone 10 MG/ML VIAL 6 MG IVP (08:25)
[2020-12-10] MEDS: Cholecalciferol (Vitamin D3) 1,000 UNIT TAB 2000 UNITS PO (08:25)
[2020-12-10] MEDS: Zinc Sulfate 220 MG TAB PO (08:25)
[2020-12-10 08:29] LABS: ALT 93 U/L (16-63); AST 196 U/L (15-37); Albumin 2.4 g/dL (3.4-5.0); Alkaline Phosphatase 47 U/L (46-116); Anion Gap 6.1 mmol/L (3-11); BUN 11 mg/dL (7-18); Bilirubin, Total 0.4 mg/dL (0.2-1.0); C-Reactive Protein 12.13 mg/dL (0.0-0.3); CO2 28.9 mmol/L (21.0-32.0); CREATININE 0.9 mg/dL (0.70-1.30); Calcium 8.6 mg/dL (8.5-10.1); Chloride 104 mmol/L (98-107); Glucose 133 mg/dL (74-106); Potassium 4.2 mmol/L (3.5-5.1); Sodium 139 mmol/L (136-145)
[2020-12-10 08:37] LABS: D-Dimer 1627 ng/mlFEU (<500)
[2020-12-10 08:54] LABS: Creatine Kinase 7734 U/L (39-308)
[2020-12-10 10:29] LABS: Ferritin 1580 ng/mL (26-388)
[2020-12-10] MEDS: REMDESIVIR 200 MG in Normal Saline 250 ML 250 MG IVPB (11:55)
[2020-12-10 12:07] LABS: INR 1.2 (0.9-1.1); Prothrombin Time 11.9 sec (9.3-11.0)
--- NOTE | 2020-12-10 16:01 | PGE_ITS ---
Date of Service Date of service: 12/10/20 Time of Service: 16:01 Assessment and Plan Assessment and plan (1) COVID-19: Status: Acute Assessment and plan: cont. zinc, vitamin D, vitamin C, decadron. Baricitinib and Remdesivir added today. continue oxygen per NC and use of IS, acapella and proning (2) Rhabdomyolysis: Status: Acute Assessment and plan: improving. CK down from >10,000 to 7000. Hold iv fluids in light of his COVID-19. I actually put him on low dose oral diuretics. Qualifiers: Rhabdomyolysis type: non-traumatic Qualified Code(s): M62.82 - Rhabdomyolysis (3) Elevated transaminase level: Status: Acute Assessment and plan: probably d/t covid-19. AST and ALT actually lower today. continue to monitor. Hepatitis studies and HIV have been ordered and are pending. (4) DVT prophylaxis: Status: Acute Assessment and plan: lovenox 30 mg SC Q12hr. monitor d-dimer levels. if rising then workup for thromboembolism. Subjective Subjective Interval history since last seen: Dyspnea is no worse. Cough is nonproductive and he complains of left sided rib pain from coughing. I have put him on codeine for his cough and chest wall pain. His oxygen saturation has been 89 to 94%. He is currently on 2 LPM NC. He was on only 1 LPM. He is afebrile. He remains on decadron, I added baricitinib and remdesivir today. His transaminitis is improving. Exam Narrative Exam Narrative: Middle aged white male, alert and oriented x 3. He seems more interested in watching TV than discussing his condition. I encouraged him to practice proning and if unable to prone then at least roll from side to side and to sit up in the chair while awake but not to lie on his back Lungs: bibasilar dry rales Heart: RRR, no murmur or rub or gallop Abdomen: soft and nontender Legs: no edema Objective Last Vital Signs Temp 36.6 C 12/10/20 15:55 Pulse 81 12/10/20 15:55 Resp 20 12/10/20 15:55 BP 135/66 12/10/20 15:55 Pulse Ox 91 L 12/10/20 15:55 Laboratory Results - last 24 hr 12/09/20 12/09/20 12/09/20 16:15 19:12 19:30 WBC RBC Hgb Hct MCV MCH MCHC RDW Plt Count MPV Immature Gran % Neutrophils % Band Neutrophils % Lymphocytes % Monocytes % Eosinophils % Basophils % Nucleated RBC % Absolute Neutrophils Absolute Lymphocytes Absolute Monocytes Absolute Eosinophils Absolute Basophils RBC Morphology PT INR D-Dimer Sodium Potassium Chloride Carbon Dioxide Anion Gap BUN Creatinine Estimated GFR/1.73 m2 Glucose Calcium Ferritin Total Bilirubin AST ALT Alkaline Phosphatase Creatine Kinase C-Reactive Protein Total Protein Albumin Procalcitonin Urine Color Yellow Urine Clarity Clear Urine pH 6.5 Ur Specific [place] >= 1.030 H Urine Protein 100 H Urine Ketones 80 H Urine Blood Moderate H Urine Nitrite Negative Urine Bilirubin Negative Urine Urobilinogen 1.0 H Ur Leukocyte Esterase Negative Urine RBC 5-10 H Urine WBC 3-5 Ur Epithelial Cells Few Urine Crystals Negative Urine Bacteria Moderate Urine Casts 0-2 Hyaline Urine Mucus Moderate Ur Culture Indicated? Yes Urine Glucose Negative COVID-19 Source Nasal/Nares SARS-CoV-2 (PCR) POSITIVE A* Patient ABO/Rh O Positive 12/09/20 12/10/20 12/10/20 19:50 07:25 07:25 WBC 11.52 H D RBC 4.30 L Hgb 13.1 L Hct 38.7 L MCV 90.0 MCH 30.5 MCHC 33.9 RDW 12.1 Plt Count 236 MPV 9.7 Immature Gran % 0.0 Neutrophils % 85.0 Band Neutrophils % 5 Lymphocytes % 4.0 Monocytes % 3.0 Eosinophils % 0.0 Basophils % 0.0 Nucleated RBC % 0 Absolute Neutrophils 10.37 H Absolute Lymphocytes 0.46 L Absolute Monocytes 0.35 Absolute Eosinophils 0.00 Absolute Basophils 0.00 RBC Morphology Normal PT INR D-Dimer Sodium 139 Potassium 4.2 D Chloride 104 Carbon Dioxide 28.9 Anion Gap 6.1 BUN 11 D Creatinine 0.9 Estimated GFR/1.73 m2 >= 60.00 Glucose 133 H Calcium 8.6 Ferritin 1580 H Total Bilirubin 0.4 AST 196 H ALT 93 H Alkaline Phosphatase 47 Creatine Kinase 7734 H C-Reactive Protein 12.13 H Total Protein 7.0 Albumin 2.4 L Procalcitonin < 0.1 Urine Color Urine Clarity Urine pH Ur Specific [place] Urine Protein Urine Ketones Urine Blood Urine Nitrite Urine Bilirubin Urine Urobilinogen Ur Leukocyte Esterase Urine RBC Urine WBC Ur Epithelial Cells Urine Crystals Urine Bacteria Urine Casts Urine Mucus Ur Culture Indicated? Urine Glucose COVID-19 Source SARS-CoV-2 (PCR) Patient ABO/Rh 12/10/20 12/10/20 07:25 11:40 WBC RBC Hgb Hct MCV MCH MCHC RDW Plt Count MPV Immature Gran % Neutrophils % Band Neutrophils % Lymphocytes % Monocytes % Eosinophils % Basophils % Nucleated RBC % Absolute Neutrophils Absolute Lymphocytes Absolute Monocytes Absolute Eosinophils Absolute Basophils RBC Morphology PT 11.9 H INR 1.2 H D-Dimer 1627 H Sodium Potassium Chloride Carbon Dioxide Anion Gap BUN Creatinine Estimated GFR/1.73 m2 Glucose Calcium Ferritin Total Bilirubin AST ALT Alkaline Phosphatase Creatine Kinase C-Reactive Protein Total Protein Albumin Procalcitonin Urine Color Urine Clarity Urine pH Ur Specific [place] Urine Protein Urine Ketones Urine Blood Urine Nitrite Urine Bilirubin Urine Urobilinogen Ur Leukocyte Esterase Urine RBC Urine WBC Ur Epithelial Cells Urine Crystals Urine Bacteria Urine Casts Urine Mucus Ur Culture Indicated? Urine Glucose COVID-19 Source SARS-CoV-2 (PCR) Patient ABO/Rh
[2020-12-10] MEDS: Atorvastatin 40 MG TAB PO (20:15)
[2020-12-10] MEDS: Calcium Carbonate *TUMS* 500 MG CHEW PO (22:35)
[2020-12-11] VITALS (24 sets, daily range): BP systolic 117–135; BP diastolic 44–81; PULSE 52–93; RESP 17–24; TEMP 35.9–37.3; O2SAT 88–99
[2020-12-11] MEDS: DOXYCYCLINE 100 MG in Normal Saline 100 ML IVPB ×2 (02:50→15:12)
[2020-12-11] MEDS: cefTRIAXone 2 GM/50 ML BAG IV (04:29)
[2020-12-11 07:45] LABS: HCT 36.8 % (40.0-50.0); HGB 12.2 g/dL (13.5-17.5); MCH 29.9 pg (27.0-33.0); MCHC 33.2 % (32.0-36.0); MCV 90.2 fL (80-95); MPV 9.4 fL (8.0-11.0); Nucleated RBC 0 %; Platelet Count 280 10^3/uL (130-400); RBC 4.08 10^6/uL (4.36-5.78); RDW 12.1 % (11.8-14.1); WBC 8.23 10^3/uL (4.4-10.8)
[2020-12-11 08:09] LABS: ALT 84 U/L (16-63); AST 119 U/L (15-37); Albumin 2.2 g/dL (3.4-5.0); Alkaline Phosphatase 46 U/L (46-116); Anion Gap 7.1 mmol/L (3-11); BUN 15 mg/dL (7-18); Bilirubin, Total 0.3 mg/dL (0.2-1.0); C-Reactive Protein 8.06 mg/dL (0.0-0.3); CO2 27.9 mmol/L (21.0-32.0); CREATININE 0.9 mg/dL (0.70-1.30); Calcium 8.5 mg/dL (8.5-10.1); Chloride 103 mmol/L (98-107); Glucose 134 mg/dL (74-106); Potassium 4.1 mmol/L (3.5-5.1); Sodium 138 mmol/L (136-145); Total Protein 6.7 g/dL (6.4-8.2)
[2020-12-11 08:11] LABS: Absolute Lymphocyte Count 0.49 10^3/uL (1.2-3.4); Absolute Monocyte Count 0.41 10^3/uL (0.1-0.8); Absolute Neutrophil Count 7.32 10^3/uL (1.2-6.7); Atypical Lymphocytes % 2; Bands % 2; Creatine Kinase 3308 U/L (39-308); Diff Comment Manual Differential; RBC Morphology Normal
[2020-12-11] MEDS: Enoxaparin 30 MG/0.3 ML SYR SC ×2 (08:28→20:24)
[2020-12-11] MEDS: Normal Saline Flush 10 ML SYR IVP (08:28)
[2020-12-11] MEDS: Potassium Chloride 20 MEQ TABCR PO ×2 (08:29→20:24)
[2020-12-11] MEDS: Dexamethasone 10 MG/ML VIAL 6 MG IVP (08:29)
[2020-12-11] MEDS: Furosemide 20 MG TAB PO ×2 (08:29→15:11)
[2020-12-11] MEDS: Zinc Sulfate 220 MG TAB PO (08:29)
[2020-12-11] MEDS: Cholecalciferol (Vitamin D3) 1,000 UNIT TAB 2000 UNITS PO (08:30)
[2020-12-11] MEDS: Famotidine 20 MG TAB PO ×2 (08:30→20:23)
[2020-12-11 08:38] LABS: D-Dimer 1336 ng/mlFEU (<500)
[2020-12-11 08:57] LABS: Ferritin 1498 ng/mL (26-388)
--- NOTE | 2020-12-11 15:03 | PGE_ITS ---
Date of Service Date of service: 12/11/20 Time of Service: 15:03 Assessment and Plan Assessment and plan (1) COVID-19: Status: Acute Assessment and plan: cont. zinc, vitamin D, vitamin C, decadron. Baricitinib and Remdesivir added yesterday. continue oxygen per NC and use of IS, acapella and proning. consider dc Rocephin. continue low dose lasix. (2) Rhabdomyolysis: Status: Acute Assessment and plan: improving. CK down from >10,000 to 3300. Hold iv fluids in light of his COVID-19. I actually put him on low dose oral diuretics. Qualifiers: Rhabdomyolysis type: non-traumatic Qualified Code(s): M62.82 - Rhabdomyolysis (3) Elevated transaminase level: Status: Acute Assessment and plan: probably d/t covid-19. AST and ALT actually lower today. continue to monitor. Hepatitis studies and HIV have been ordered and are pending. (4) DVT prophylaxis: Status: Acute Assessment and plan: lovenox 30 mg SC Q12hr. monitor d-dimer levels. if rising then workup for thromboembolism. Subjective Subjective Interval history since last seen: Patient states that his left-sided chest wall pain is improved. Still has a cough that is minimally productive of white mucus. He is afebrile. Oxygen saturation is still marginal running 88 to 91% on 3 L/min per nasal cannula. Its better at rest worse with activity. Patient has been reluctant to problem due to discomfort to his chest wall. He states he has been rolling from side to side he did get up out of bed and sit up in the chair for a while this afternoon. Again I encouraged him to practice proning and use of his incentive spirometer and Acapella and to get out of bed as much as poss ible to reduce the risk of atelectasis and worsening hypoxemia. Inflammatory markers are improving his white count is normalized 8200. Still has a relative lymphopenia. Ferritin remains elevated at 1498. Creatine kinase is down to 3300 from a peak of greater than 10,000. D-dimer is slightly lower at 1300. Patient remains on Decadron 6 mg IV daily along with Pepcid 20 mg twice daily zinc and vitamin C and vitamin D as well as baricitinib and remdesivir. He remains on Rocephin however if his repeat procalcitonin level is normal tomorrow I will consider discontinuing Rocephin. 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 Exam Narrative Exam Narrative: Middle-aged white male lying in bed semifowler position watching TV. Patient was seen with his primary care nurse at the bedside. Patient is in no respiratory distress is not using his accessory respiratory muscles. He is alert and oriented person place time circumstance. Lungs with bibasilar rales which are unchanged no rhonchi or wheezing Heart regular rate and rhythm Abdomen soft nontender normal bowel sounds nondistended. Extremities without peripheral cyanosis or edema no calf tenderness or swelling. Objective Last Vital Signs Temp 36.9 C 12/11/20 10:56 Pulse 90 12/11/20 10:56 Resp 24 12/11/20 10:56 BP 118/72 12/11/20 10:56 Pulse Ox 91 L 12/11/20 12:38 Laboratory Results - last 24 hr 12/11/20 12/11/20 12/11/20 07:30 07:30 07:30 WBC 8.23 RBC 4.08 L Hgb 12.2 L Hct 36.8 L MCV 90.2 MCH 29.9 MCHC 33.2 RDW 12.1 Plt Count 280 MPV 9.4 Immature Gran % 0.0 Neutrophils % 87.0 Band Neutrophils % 2 Lymphocytes % 4.0 Atypical Lymphs % 2 Monocytes % 5.0 Eosinophils % 0.0 Basophils % 0.0 Nucleated RBC % 0 Absolute Neutrophils 7.32 H Absolute Lymphocytes 0.49 L Absolute Monocytes 0.41 Absolute Eosinophils 0.00 Absolute Basophils 0.00 RBC Morphology Normal D-Dimer 1336 H Sodium 138 Potassium 4.1 Chloride 103 Carbon Dioxide 27.9 Anion Gap 7.1 BUN 15 Creatinine 0.9 Estimated GFR/1.73 m2 >= 60.00 Glucose 134 H Calcium 8.5 Ferritin 1498 H Total Bilirubin 0.3 AST 119 H ALT 84 H Alkaline Phosphatase 46 Creatine Kinase 3308 H C-Reactive Protein 8.06 H Total Protein 6.7 Albumin 2.2 L
[2020-12-11] MEDS: Atorvastatin 40 MG TAB PO (20:24)
[2020-12-12] VITALS (28 sets, daily range): BP systolic 104–131; BP diastolic 64–87; PULSE 59–145; RESP 17–26; TEMP 34–36.6; O2SAT 85–95
--- NOTE | 2020-12-12 | DI.US_ITS ---
Exam(s) US EXTREMITY VENOUS BI EXAM: US EXTREMITY VENOUS BI CLINICAL HISTORY: elevated D-dimer, dyspnea TECHNIQUE: Grayscale, color, and doppler imaging of the deep venous system of both lower extremities was performed. COMPARISON: No exams were available for comparison FINDINGS: There is no evidence of intraluminal thrombus and there is normal compression and augmentation demons trated within the common femoral veins, femoral veins, and popliteal veins of both lower extremities. In the calves the interrogated veins also exhibit normal compression/ augmentation properties. The greater saphenous veins also appear patent as do the saphenofemoral junctions bilaterally.. IMPRESSION: 1. No ultrasound evidence of DVT in either lower extremity. DATA REPOSITORY:
[2020-12-12 01:52] LABS: Vitamin D 25 Total 27.9 ng/mL (30-100)
[2020-12-12] MEDS: DOXYCYCLINE 100 MG in Normal Saline 100 ML IVPB (03:15)
[2020-12-12] MEDS: cefTRIAXone 2 GM/50 ML BAG IV (04:47)
[2020-12-12 07:05] LABS: Abs Immature Grans 0.05 10^3/uL (0.0-0.06); HCT 39.8 % (40.0-50.0); HGB 13.5 g/dL (13.5-17.5); MCH 31.5 pg (27.0-33.0); MCHC 33.9 % (32.0-36.0); MCV 92.8 fL (80-95); Nucleated RBC 0 %; RBC 4.29 10^6/uL (4.36-5.78); WBC 5.26 10^3/uL (4.4-10.8)
[2020-12-12 07:35] LABS: Absolute Basophil Count 0.11 10^3/uL (0.0-0.2); Absolute Eosinophil Count 0.11 10^3/uL (0.0-0.7); Absolute Lymphocyte Count 0.58 10^3/uL (1.2-3.4); Absolute Monocyte Count 0.26 10^3/uL (0.1-0.8); Absolute Neutrophil Count 4.21 10^3/uL (1.2-6.7); Atypical Lymphocytes % 1; Platelet Count 332 10^3/uL (130-400)
[2020-12-12 07:36] LABS: Diff Comment Manual Differential; RBC Morphology Normal
[2020-12-12 07:50] LABS: D-Dimer 1337 ng/mlFEU (<500)
[2020-12-12 07:59] LABS: ALT 85 U/L (16-63); AST 122 U/L (15-37); Albumin 2.3 g/dL (3.4-5.0); Alkaline Phosphatase 49 U/L (46-116); Anion Gap 6.9 mmol/L (3-11); BUN 17 mg/dL (7-18); Bilirubin, Total 0.4 mg/dL (0.2-1.0); C-Reactive Protein 4.32 mg/dL (0.0-0.3); CO2 31.1 mmol/L (21.0-32.0); CREATININE 0.9 mg/dL (0.70-1.30); Calcium 8.8 mg/dL (8.5-10.1); Chloride 103 mmol/L (98-107); Creatine Kinase 1832 U/L (39-308); Glucose 115 mg/dL (74-106); Potassium 4.4 mmol/L (3.5-5.1); Sodium 141 mmol/L (136-145); Total Protein 7.1 g/dL (6.4-8.2)
[2020-12-12] MEDS: Enoxaparin 30 MG/0.3 ML SYR SC (08:03)
[2020-12-12] MEDS: Dexamethasone 10 MG/ML VIAL 6 MG IVP (08:04)
[2020-12-12] MEDS: Normal Saline Flush 10 ML SYR IVP ×4 (08:05→23:50)
[2020-12-12] MEDS: Cholecalciferol (Vitamin D3) 1,000 UNIT TAB 2000 UNITS PO (08:07)
[2020-12-12] MEDS: Potassium Chloride 20 MEQ TABCR PO ×2 (08:07→21:58)
[2020-12-12] MEDS: Zinc Sulfate 220 MG TAB PO (08:07)
[2020-12-12] MEDS: Furosemide 20 MG TAB PO (08:08)
[2020-12-12] MEDS: Famotidine 20 MG TAB PO ×2 (08:08→21:56)
[2020-12-12 08:45] LABS: Ferritin 1782 ng/mL (26-388)
--- NOTE | 2020-12-12 09:13 | CMPROGNOTE_ITS ---
- If Service Date Differs Date of service: 12/12/20 Time of Service: 09:13 Care Management Progress Note S/O: Kosta was unavailable by phone today, as he did not answer the phone. He continues to be closely monitored and treated for Covid. Per provider assessment: his oxygen status worsened today and his supplemental oxygen needs increased. Kosta shared with CM over the weekend that he is currently unemployed, and as far as he knows still has insurance. CM gave pt a medicaid application and application for [facility] financial assistance. He may benefit from a [facility] referral. CM will continue to connect with patient via phone and offer him the referral. A: 40 year old male admitted to [facility] on 12/09/20 for Covid-19 Pneumonia P: Anticipate Kosta will be discharged home via private vehicle when medically cleared by . His need for home O2 and VNA services is undetermined at this time. Kosta may benefit from a [facility] referral. CM will continue to support discharge planning needs.
--- NOTE | 2020-12-12 10:15 | RT.EKG_ITS ---
APPROVED REPORT Exam: Resting ECG Reason for Exam: chest pain Patient Location: I HR:129 bpm ECG Measurements Heart Rate 129 AXIS DE 144 P 46 QRSd 82 QRS 36 QT 368 T 200 QTc 538 Conclusion Sinus tachycardia...rate> 99 Low voltage, precordial leads...precordial leads <1.0mV Nonspecific T abnormalities, lateral leads...T <-0.10mV, I aVL V5 V6 Prolonged QT interval...QTc >500mS
--- NOTE | 2020-12-12 10:26 | NUR.NOTE ---
Nursing Note: 1015 checking iv pump. Patient hr 136 and he is reporting chest pain . CCC notified, awaiting order
[2020-12-12 10:47] LABS: Procalcitonin < 0.1 ng/mL
[2020-12-12 11:30] LABS: NT-proBNP 234 pg/mL (<300)
--- NOTE | 2020-12-12 11:30 | W.PM.PROGNOT ---
Date of Service Date of service: 12/12/20 Time of Service: 11:30 Assessment and Plan Assessment and plan (1) COVID-19: Status: Acute Assessment and plan: Oxygen status has worsened he is requiring higher flow oxygen to maintain his saturation. Cont. zinc, vitamin D, vitamin C, decadron. Baricitinib and Remdesivir. continue oxygen per HFNC/CPAP and use of IS, acapella and proning. will dc Rocephin given multiple normal procalcitonin levels and normal WBC count and no fever. given his tachycardia and underfilled RV and LV on echo and his tachycardia, I will hold on furosemide for now as he is probabably hypovolemic (2) Rhabdomyolysis: Status: Acute Assessment and plan: improving. CK down from >10,000 to 1800. not receiving iv fluids d/t covid pneumonia. However, I will hold his furosemide in light of his tachyacardia, and echo and IVC findings Qualifiers: Rhabdomyolysis type: non-traumatic Qualified Code(s): M62.82 - Rhabdomyolysis (3) Elevated transaminase level: Status: Acute Assessment and plan: probably d/t covid-19. AST and ALT actually lower today. continue to monitor. Hepatitis studies and HIV have been ordered and are pending. (4) DVT prophylaxis: Status: Acute Assessment and plan: in light of his initial POCUS leg exam, I will put him on full anticoagulants pending his formal venous duplex study. Subjective Subjective Interval history since last seen: Patient complaining of left-sided chest pain worse with coughing is reproducible chest wall pain. Stat EKG was done showed no acute ischemic changes no signs of right heart strain. Patient's had increasing oxygen requirements and now has required either CPAP or high flow nasal cannula. Oxygen level will dip down into the mid 80s while on a nasal cannula. But will return into the low 90s while on a CPAP mask at 40% FiO2. Patient's been tachycardic with heart rate in the 130s this morning. Rhythm is sinus. Patient has a cough that is minimally productive of white mucus. He has had no fevers overnight. Repeat procalcitonin this morning is less than 0.1. At this time I am going to discontinue his Rocephin. Exam Narrative Exam Narrative: Middle-aged white male who is moderately dyspneic with any kind of activity but at rest is able to talk in complete sentences. Lungs with bilateral basilar rales no rhonchi or wheezing Heart is regular but tachycardic without murmur rub or gallop Abdomen is soft nontender normal bowel sounds nondistended Lower extremities without peripheral cyanosis or edema no calf tenderness. Objective Last Vital Signs Temp 36.6 C 12/12/20 10:18 Pulse 136 H 12/12/20 10:31 Resp 22 12/12/20 10:31 BP 118/65 12/12/20 10:18 Pulse Ox 91 L 12/12/20 10:31 Laboratory Results - last 24 hr 12/10/20 12/12/20 12/12/20 07:25 06:40 06:40 WBC 5.26 D RBC 4.29 L Hgb 13.5 Hct 39.8 L MCV 92.8 MCH 31.5 MCHC 33.9 RDW 12.0 Plt Count 332 MPV 9.0 Immature Gran % See Differential Neutrophils % 80.0 Lymphocytes % 10.0 Atypical Lymphs % 1 Monocytes % 5.0 Eosinophils % 2.0 Basophils % 2.0 Nucleated RBC % 0 Absolute Neutrophils 4.21 Absolute Lymphocytes 0.58 L Absolute Monocytes 0.26 Absolute Eosinophils 0.11 Absolute Basophils 0.11 RBC Morphology Normal D-Dimer Sodium 141 Potassium 4.4 Chloride 103 Carbon Dioxide 31.1 Anion Gap 6.9 BUN 17 Creatinine 0.9 Estimated GFR/1.73 m2 >= 60.00 Glucose 115 H Calcium 8.8 Ferritin 1782 H Total Bilirubin 0.4 AST 122 H ALT 85 H Alkaline Phosphatase 49 Creatine Kinase 1832 H C-Reactive Protein 4.32 H Total Protein 7.1 Albumin 2.3 L 25-OH Vitamin D Total 27.9 L Procalcitonin 12/12/20 12/12/20 06:40 06:40 WBC RBC Hgb Hct MCV MCH MCHC RDW Plt Count MPV Immature Gran % Neutrophils % Lymphocytes % Atypical Lymphs % Monocytes % Eosinophils % Basophils % Nucleated RBC % Absolute Neutrophils Absolute Lymphocytes Absolute Monocytes Absolute Eosinophils Absolute Basophils RBC Morphology D-Dimer 1337 H Sodium Potassium Chloride Carbon Dioxide Anion Gap BUN Creatinine Estimated GFR/1.73 m2 Glucose Calcium Ferritin Total Bilirubin AST ALT Alkaline Phosphatase Creatine Kinase C-Reactive Protein Total Protein Albumin 25-OH Vitamin D Total Procalcitonin < 0.1 Reviewed Pertinent PMH: Yes Objective Narrative Objective Narrative: POCUS exam of the heart taken from the subcostal view as well examination of the IVC was performed. There is good contractility of the LV and RV. RV is not dilated. IVC is less than 2 cm and has good inspiratory collapse. POCUS exam of the right and left femoral and popliteal venous system was performed. On the left there was compressibility of the left common femoral left greater saphenous vein but in the distal femoral there appeared to be noncompressibility as well as in the left popliteal vein. Right venous system was completely compressible from the popliteal vein all the way to the common femoral vein.
[2020-12-12 11:31] LABS: Troponin I < 0.05 ng/mL (<0.06)
[2020-12-12 11:36] LABS: Hepatitis A Antibody IgM Negative (Negative); Hepatitis B Core Antibody Negative (Negative); Hepatitis B surface Ag Negative (Negative); Hepatitis C Ab w Rflx HCV PCR Negative (Negative)
[2020-12-12 11:47] LABS: HIV-1/2 Ag & Ab Screen Negative (Negative)
[2020-12-12] MEDS: Enoxaparin 80 MG/0.8 ML SYR 70 MG SC (12:06)
--- NOTE | 2020-12-12 13:30 | DI.CT_ITS ---
Exam(s) CT CHEST PE CTA EXAM: CT CHEST PE CTA CLINICAL HISTORY: tachycardia, COVID-19 pneumonia, chest pain. TECHNIQUE: Imaging Protocol: Axial CT angiography was performed with multi-slice acquisition and mu lti-planar and/or 3D reconstructions. CONTRAST MATERIAL: Intravenous: Omnipaque 350 Contrast volume:structured data in ml COMPARISON: CT CT CHEST PE CTA from 12/09/2020 FINDINGS: CT angiography of the chest was performed with intravenous infusion of 100 cc of Omnipaque 350. There are diffuse bilateral predominantly peripheral ground-glass and ???crazy paving??? infiltrates consistent with the patient's known COVID pneumonia. There is a large left pneumothorax. There is p neumomediastinum. Tracheobronchial tree appears intact. No significant pleural effusion seen. No evidence of pulmonary embolic disease. Thoracic aorta is of normal diameter, no thoracic aortic an eurysm or dissection, major branch vessels appear intact. No mediastinal or hilar adenopathy. Images obtained through the upper abdomen show unremarkable appearance of the visualized portions of the liver, spleen, pancreas, adrenals, and kidneys. IMPRESSION: No evidence of pulmonary embolic disease. Appearance is consistent with the patient's known bilatera l COVID pneumonia and there is a large left pneumothorax and associated pneumomediastinum. RADIATION DOSE DELIVERED: 481.52mGy.cm Total DLP 481.52mGy.cm Total DLP 12.05mGy CTDIvol DATA REPOSITORY: All CT scans at this facility are submitted to the National Radiology Data Registry (NRDR) Dose Index Registry (DIR) with the [employer] ([employer]). RADIATION OPTIMIZATION: All CT scans at this facility use at least one of these dose optimization te chniques: automated exposure control; mA and/or kV adjustment per patient size (includes targeted exa ms where dose is matched to clinical indication); or iterative reconstruction.
[2020-12-12] MEDS: Metoprolol 12.5 MG TAB PO ×2 (13:56→21:56)
[2020-12-12] MEDS: Normal Saline 250 ML IV (13:57)
[2020-12-12] MEDS: Omnipaque 350 MG/ML 100 ML BTL IJ (16:15)
[2020-12-12] MEDS: Normal Saline - Diluent 50 ML VIAL IV (16:17)
--- NOTE | 2020-12-12 18:18 | DI.VRAD_ITS ---
PROCEDURE INFORMATION: Exam: CTA Chest With Contrast Exam date and time: 12/12/2020 1:39 PM Age: 40 years old Clinical indication: Other: Covid-19, tachycardia; Patient HX: Tachycardia, covid-19 pneumonia, chest pain TECHNIQUE: Imaging protocol: Computed tomographic angiography of the chest with contrast. 3D rendering (Not supervised by radiologist): MIP and/or 3D reconstructed images were created by the technologist. COMPARISON: CT CHEST PE CTA 12/09/2020 6:11 PM FINDINGS: Pulmonary arteries: Hounsfield attenuation of the right pulmonary artery measures 505 and therefore this study is diagnostic. No pulmonary emboli seen. Aorta: Unremarkable. Lungs: Significant bilateral predominantly peripheral ground-glass opacities present. Pulmonary vascular prominence noted. Pleural spaces: There is a large left pneumothorax. No pleural effusions. Mediastinum: Visualized portion of the thyroid is unremarkable. Heart size is normal. No pericardial effusion or thickening. Incompletely visualized free air is seen adjacent to the superior right thorax, series 8 image 1 through 22. There may be a small hiatal hernia. There is mild rightward shift of the mediastinum. Lymph nodes: No mediastinal lymphadenopathy. There are 2 prominent subcentimeter AP window lymph nodes, largest with 9 mm in short axis dimension. Superior abdomen: Visualized portion of the liver demonstrates diffuse decreased echogenicity concerning for fatty change. Otherwise, the visualized portion of the liver, gallbladder, adrenal glands, kidneys, spleen, pancreas, decompressed stomach and bowel with scattered colonic diverticuli are otherwise unremarkable for patient's stated age. No free air, free fluid or abdominal lymphadenopathy. Bones/joints: No acute osseous injury or underlying osseous mass. Soft tissues: Unremarkable. IMPRESSION: 1. Large left pneumothorax. Discussed findings with Dr Dennis on 12/12/2020 at 2:15 p.m., [place] time zone. 2. Significant bilateral ground-glass pulmonary opacities consistent with history of COVID. 3. No pulmonary emboli. 4. Free air adjacent to the right hand portion of the trachea. 5. Likely hepatic fatty change. Dictated and Authenticated by: Noel Mobley MD. Ordering:[facility] Domenico Burgess MD
[2020-12-12] MEDS: HYDROmorphone 2 MG/ML VIAL 1 MG IVP (20:15)
[2020-12-12] MEDS: Cellulose,Oxidized 4X8 1 PACKET MC (20:30)
[2020-12-12] MEDS: Normal Saline Flush 10 ML SYR (20:30)
[2020-12-12] MEDS: Cellulose,Oxidized 2X3 PKT 1 EACH MC (20:30)
--- NOTE | 2020-12-12 20:45 | DI.RAD_ITS ---
Exam(s) XR PORTABLE CHEST AP POST LINE EXAM: XR PORTABLE CHEST AP POST LINE CLINICAL HISTORY: post chest tube placement TECHNIQUE: COMPARISON: No exams were available for comparison FINDINGS: Semi upright chest at 2057 hours. As noted on chest CT, there are bilateral predominantly peripheral intrapulmonary infiltrates consistent with pneumonitis. There is a left-sided thoracotomy tube in p lace with resolution of the previously noted large left pneumothorax identified by CT. No residual p neumothorax seen. IMPRESSION: RADIATION DOSE DELIVERED: Total DLP
--- NOTE | 2020-12-12 21:16 | SCONE_ITS ---
Date of service: 12/12/20 Time of Service: 21:16 Assessment and Plan Assessment and plan (1) Pneumothorax, left: Status: Acute Assessment and plan: PTX catheter insertion- see op note. subsequent xray shows expansion of the lung. LLL appear solid and poorly complient. try tessalon pearls for cough supportive cares cont on suction will follow management per pulm and hospitalists (2) Elevated transaminase level: Status: Acute (3) COVID-19: Status: Acute (4) Rhabdomyolysis: Status: Acute Qualifiers: Rhabdomyolysis type: non-traumatic Qualified Code(s): M62.82 - Rhabdomyolysis History of Present Illness Narrative: Patient was admitted on 12/09 with acute Covid. Please see his H&P for the details of this. This is being managed by the hospitalist and pulmonary service patient does have a severe cough but is not well controlled. Today on 12/12 he became acutely short of breath. Concern was for a DVT and a CT scan was obtained that did show he has a left pneumothorax. He is going to require a chest tube. Unfortunately he did receive milligram per kilogram of Lovenox earlier today. We will place a anterior axillary early pneumothorax catheter in for fifth intercostal space. Risks include but not limited to: Bleeding, (and he is at high risk of bleeding because of the Lovenox he did receive today. I did discuss this with him. If this should occur he may require chest tube for evacuation of fluid or laparoscopy. Which could be difficult in the setting of acute Covid), infections, worsening of his pneumonia, damage to the lung. Patient does agree to tube insertion. Consults Consult date: 12/12/20 Requesting physician: Aditya Acuña Review of Systems All systems reviewed & are unremarkable except as noted in HPI and below Constitutional Constitutional: Reports anorexia, Reports body ache(s), Reports excessive sweat ing, Reports fatigue, Reports fever(s), Reports lethargy, Reports malaise, Reports night sweats, Reports poor appetite and Reports weakness Cardiovascular Cardiovascular: Reports dyspnea and Reports dyspnea on exertion Respiratory Respiratory: Reports as per HPI, Reports cough, Reports pain on inspiration, Reports pain with cough, Reports dyspnea and Reports dyspnea on exertion Neurologic Neurologic: Reports weakness Endocrine Endocrine: Reports excessive sweating and Reports fatigue [facility] Medical History (Updated 12/13/20 @ 20:00 by Annalise Harmon DO) History of Lyme disease History of tachycardia Surgical History (Updated 12/10/20 @ 01:28 by Aditya Acuña) History of arthroscopic knee surgery Right knee meniscus surgery Social History Smoking/Tobacco Use Status: Never Smoking risk assessment performed?: Yes Alcohol Intake: never Drug use: Never Substance use type: does not use Do you feel safe at home: Yes Do you feel safe in your relationship?: Yes Exam Const General: acute distress, anxious, diaphoretic and disheveled Nutritional Appearance: overweight Orientation: alert, awake, oriented x3, oriented to person and oriented to place Eyes Sclera: sclerae normal Chest Chest: normal inspection of the chest, normal palpation of entire chest wall and no crepitus Resp Effort & Inspection: abnormal respiratory pattern and labored Auscultation: diminished lung sounds GI Palpation: soft and nontender Extrem General: no clubbing, cyanosis or edema Results Last Vital Signs Temp 35.5 C L 12/12/20 19:30 Pulse 126 H 12/12/20 19:30 Resp 26 H 12/12/20 19:30 BP 122/82 12/12/20 16:54 Pulse Ox 91 L 12/12/20 19:30 Labs Result diagrams: 12/14/20 07:40 12/14/20 07:40 Labs: Laboratory Results - last 24 hr 12/10/20 12/10/20 12/10/20 07:25 07:25 07:25 WBC RBC Hgb Hct MCV MCH MCHC RDW Plt Count MPV Immature Gran % Neutrophils % Lymphocytes % Atypical Lymphs % Monocytes % Eosinophils % Basophils % Nucleated RBC % Absolute Neutrophils Absolute Lymphocytes Absolute Monocytes Absolute Eosinophils Absolute Basophils RBC Morphology D-Dimer Sodium Potassium Chloride Carbon Dioxide Anion Gap BUN Creatinine Estimated GFR/1.73 m2 Glucose Calcium Ferritin Total Bilirubin AST ALT Alkaline Phosphatase Creatine Kinase Troponin I C-Reactive Protein NT-Pro-B Natriuret Pep Total Protein Albumin 25-OH Vitamin D Total 27.9 L Procalcitonin Hepatitis A IgM Ab Negative Hep Bs Antigen Negative Hep B Core Total Ab Negative Hepatitis C Antibody Negative HIV 1&2 Ag/Ab, 4th Gen Negative 12/12/20 12/12/20 12/12/20 06:40 06:40 06:40 WBC 5.26 D RBC 4.29 L Hgb 13.5 Hct 39.8 L MCV 92.8 MCH 31.5 MCHC 33.9 RDW 12.0 Plt Count 332 MPV 9.0 Immature Gran % See Differential Neutrophils % 80.0 Lymphocytes % 10.0 Atypical Lymphs % 1 Monocytes % 5.0 Eosinophils % 2.0 Basophils % 2.0 Nucleated RBC % 0 Absolute Neutrophils 4.21 Absolute Lymphocytes 0.58 L Absolute Monocytes 0.26 Absolute Eosinophils 0.11 Absolute Basophils 0.11 RBC Morphology Normal D-Dimer 1337 H Sodium 141 Potassium 4.4 Chloride 103 Carbon Dioxide 31.1 Anion Gap 6.9 BUN 17 Creatinine 0.9 Estimated GFR/1.73 m2 >= 60.00 Glucose 115 H Calcium 8.8 Ferritin 1782 H Total Bilirubin 0.4 AST 122 H ALT 85 H Alkaline Phosphatase 49 Creatine Kinase 1832 H Troponin I C-Reactive Protein 4.32 H NT-Pro-B Natriuret Pep Total Protein 7.1 Albumin 2.3 L 25-OH Vitamin D Total Procalcitonin Hepatitis A IgM Ab Hep Bs Antigen Hep B Core Total Ab Hepatitis C Antibody HIV 1&2 Ag/Ab, 4th Gen 12/12/20 12/12/20 06:40 10:55 WBC RBC Hgb Hct MCV MCH MCHC RDW Plt Count MPV Immature Gran % Neutrophils % Lymphocytes % Atypical Lymphs % Monocytes % Eosinophils % Basophils % Nucleated RBC % Absolute Neutrophils Absolute Lymphocytes Absolute Monocytes Absolute Eosinophils Absolute Basophils RBC Morphology D-Dimer Sodium Potassium Chloride Carbon Dioxide Anion Gap BUN Creatinine Estimated GFR/1.73 m2 Glucose Calcium Ferritin Total Bilirubin AST ALT Alkaline Phosphatase Creatine Kinase Troponin I < 0.05 C-Reactive Protein NT-Pro-B Natriuret Pep 234 Total Protein Albumin 25-OH Vitamin D Total Procalcitonin < 0.1 Hepatitis A IgM Ab Hep Bs Antigen Hep B Core Total Ab Hepatitis C Antibody HIV 1&2 Ag/Ab, 4th Gen
--- NOTE | 2020-12-12 21:16 | W.PM.OP ---
Date of service: 12/12/20 Time of Service: 21:17 Operative Note Operative Note DATE OF PROCEDURE: 12/12/20 PRE-OP DIAGNOSIS: Covid pneumonia/left pneumothorax POST-OP DIAGNOSIS: same PROCEDURE: left pneumothorax cath insertion SURGEON: Annalise Harmon CRAWLER DRAGLINE OPERATOR: Maricarmen Peace ANESTHESIA TYPE: Local By Surgeon and Other (IV sedation) ESTIMATED BLOOD LOSS: 2 PATHOLOGY: none sent COMPLICATIONS: None Patient was transported to: ICU Patient's condition: stable Procedure Description: Patient is a 40-year-old male who is admitted with Covid pneumonia. He developed acute short of breath today and was found to have noted left-sided pneumothorax greater than 50% and we are consulted to place tube he was fully anticoagulated at noon because he thought he was having a PE he did receive 100 mg of Lovenox. He has no allergy to Novocain or lidocaine. He has never had any chest surgery before. Informed consent is obtained explaining risks and benefits of the procedure including but not limited to bleeding, infection, damage to the lung or the bronchus, bronchopleural fistulas in need to put in secondary to an reaction to the anesthetics. Timeout was performed ensuring that we are doing the left side. The left chest is prepped and draped in the usual sterile fashion using a Betadine scrub solution the arm is extended over his head we entered the fourth fifth intercostal space tunneling up to the fourth third intercostal space in the midaxillary line and 30 cc of 1% lidocaine with epi is used for local anesthetization #12 blade area #15 blade is used to make a .5inch incision. A hemostat is used to dissect down to adn inbetween the intercostal muscles and entered the pleura bluntly. the incision is not big enough to insert a finger. the pneumothorax catheter is then inserted into the chest. It is sewed into place. Gelfoam and sterile occlusive gauze are placed around the entry site gauze pads are placed and are taped it is and hooked up to the suction catheter for should suction canister for air evacuation will eventually there is no more water escaping into the AirTouch into the water chamber eventually there is no more air escaping into the water chamber and there is normal titling. Repeat chest x-ray shows that the lung is up. And in good position. Sterile dressings are applied. Patient tolerated the procedure without complication.
--- NOTE | 2020-12-12 21:22 | DI.VRAD_ITS ---
PROCEDURE INFORMATION: Exam: XR Chest Exam date and time: 12/12/2020 8:49 PM Age: 40 years old Clinical indication: Device placement; Patient HX: Chest tube placement TECHNIQUE: Imaging protocol: XR of the chest. Views: 1 view. COMPARISON: CT CHEST PE CTA 12/12/2020 4:24 PM FINDINGS: Lungs: There has been interval insertion of a left chest tube with small residual pneumothorax. Significant left mid to lower opacity present which obscures the left heart border. Minor ground-glass opacity seen overlying the more lateral right lung. Pleural spaces: No definite pleural effusion. Heart/Mediastinum: Heart size is normal. There is a left descending thoracic aorta and off centered trachea. Bones/joints: Unremarkable for patient's stated age. IMPRESSION: 1. Interval insertion of a left chest tube with small residual pneumothorax. 2. Bilateral opacities, most significant within the mid to lower left lung. Dictated and Authenticated by: Noel Mobley MD. Ordering:ANA Woody MD
[2020-12-12] MEDS: MORPHine 2 MG/ML SYR IVP ×2 (21:55→23:47)
[2020-12-12] MEDS: Doxycycline Hyclate 100 MG CAP PO (21:56)
[2020-12-12] MEDS: Melatonin 3 MG TAB 6 MG PO (21:57)
[2020-12-12] MEDS: Acetaminophen 500 MG TAB 1000 MG PO (21:57)
[2020-12-12] MEDS: Atorvastatin 40 MG TAB PO (21:58)
--- NOTE | 2020-12-12 22:03 | W.PM.PROGNOT ---
Date of Service Date of service: 12/12/20 Time of Service: 22:03 Subjective Subjective Interval history since last seen: Called earlier by [facility], CTA negative for PE but demonstrates large left PTX. At time BP 112/sys, pulse 100, O2 sat 92%. Surgery consulted to place chest tube and patient transferred to ICU. Objective Last Vital Signs Temp 35.5 C L 12/12/20 19:30 Pulse 126 H 12/12/20 19:30 Resp 26 H 12/12/20 19:30 BP 122/82 12/12/20 16:54 Pulse Ox 91 L 12/12/20 19:30 Laboratory Results - last 24 hr 12/10/20 12/10/20 12/10/20 07:25 07:25 07:25 WBC RBC Hgb Hct MCV MCH MCHC RDW Plt Count MPV Immature Gran % Neutrophils % Lymphocytes % Atypical Lymphs % Monocytes % Eosinophils % Basophils % Nucleated RBC % Absolute Neutrophils Absolute Lymphocytes Absolute Monocytes Absolute Eosinophils Absolute Basophils RBC Morphology D-Dimer Sodium Potassium Chloride Carbon Dioxide Anion Gap BUN Creatinine Estimated GFR/1.73 m2 Glucose Calcium Ferritin Total Bilirubin AST ALT Alkaline Phosphatase Creatine Kinase Troponin I C-Reactive Protein NT-Pro-B Natriuret Pep Total Protein Albumin 25-OH Vitamin D Total 27.9 L Procalcitonin Hepatitis A IgM Ab Negative Hep Bs Antigen Negative Hep B Core Total Ab Negative Hepatitis C Antibody Negative HIV 1&2 Ag/Ab, 4th Gen Negative 12/12/20 12/12/20 12/12/20 06:40 06:40 06:40 WBC 5.26 D RBC 4.29 L Hgb 13.5 Hct 39.8 L MCV 92.8 MCH 31.5 MCHC 33.9 RDW 12.0 Plt Count 332 MPV 9.0 Immature Gran % See Differential Neutrophils % 80.0 Lymphocytes % 10.0 Atypical Lymphs % 1 Monocytes % 5.0 Eosinophils % 2.0 Basophils % 2.0 Nucleated RBC % 0 Absolute Neutrophils 4.21 Absolute Lymphocytes 0.58 L Absolute Monocytes 0.26 Absolute Eosinophils 0.11 Absolute Basophils 0.11 RBC Morphology Normal D-Dimer 1337 H Sodium 141 Potassium 4.4 Chloride 103 Carbon Dioxide 31.1 Anion Gap 6.9 BUN 17 Creatinine 0.9 Estimated GFR/1.73 m2 >= 60.00 Glucose 115 H Calcium 8.8 Ferritin 1782 H Total Bilirubin 0.4 AST 122 H ALT 85 H Alkaline Phosphatase 49 Creatine Kinase 1832 H Troponin I C-Reactive Protein 4.32 H NT-Pro-B Natriuret Pep Total Protein 7.1 Albumin 2.3 L 25-OH Vitamin D Total Procalcitonin Hepatitis A IgM Ab Hep Bs Antigen Hep B Core Total Ab Hepatitis C Antibody HIV 1&2 Ag/Ab, 4th Gen 12/12/20 12/12/20 06:40 10:55 WBC RBC Hgb Hct MCV MCH MCHC RDW Plt Count MPV Immature Gran % Neutrophils % Lymphocytes % Atypical Lymphs % Monocytes % Eosinophils % Basophils % Nucleated RBC % Absolute Neutrophils Absolute Lymphocytes Absolute Monocytes Absolute Eosinophils Absolute Basophils RBC Morphology D-Dimer Sodium Potassium Chloride Carbon Dioxide Anion Gap BUN Creatinine Estimated GFR/1.73 m2 Glucose Calcium Ferritin Total Bilirubin AST ALT Alkaline Phosphatase Creatine Kinase Troponin I < 0.05 C-Reactive Protein NT-Pro-B Natriuret Pep 234 Total Protein Albumin 25-OH Vitamin D Total Procalcitonin < 0.1 Hepatitis A IgM Ab Hep Bs Antigen Hep B Core Total Ab Hepatitis C Antibody HIV 1&2 Ag/Ab, 4th Gen
[2020-12-12] MEDS: Lidocaine 1% Multi-Dose 50 ML VIAL (22:33)
[2020-12-12] MEDS: LORazepam 2 MG/ML VIAL 1 MG IVP (22:39)
[2020-12-13] VITALS (65 sets, daily range): BP systolic 91–130; BP diastolic 47–83; PULSE 72–137; RESP 11–32; TEMP 31–36.9; O2SAT 87–98
[2020-12-13 07:03] LABS: HCT 41.7 % (40.0-50.0); HGB 13.9 g/dL (13.5-17.5); MCH 30.1 pg (27.0-33.0); MCHC 33.3 % (32.0-36.0); MCV 90.3 fL (80-95); Nucleated RBC 0 %; Platelet Count 412 10^3/uL (130-400); RBC 4.62 10^6/uL (4.36-5.78); RDW 12.1 % (11.8-14.1); RDW-SD 40.1 fL; WBC 4.81 10^3/uL (4.4-10.8)
[2020-12-13 07:32] LABS: Absolute Lymphocyte Count 0.67 10^3/uL (1.2-3.4); Absolute Neutrophil Count 3.94 10^3/uL (1.2-6.7); Atypical Lymphocytes % 3; Bands % 2
[2020-12-13 07:33] LABS: D-Dimer 1274 ng/mlFEU (<500); Diff Comment Manual Differential; RBC Morphology Normal
[2020-12-13 07:53] LABS: ALT 86 U/L (16-63); AST 124 U/L (15-37); Albumin 2.4 g/dL (3.4-5.0); Alkaline Phosphatase 49 U/L (46-116); BUN 21 mg/dL (7-18); Bilirubin, Total 0.6 mg/dL (0.2-1.0); CREATININE 0.8 mg/dL (0.70-1.30); Chloride 102 mmol/L (98-107); Glucose 120 mg/dL (74-106); Potassium 4.3 mmol/L (3.5-5.1); Sodium 139 mmol/L (136-145); Total Protein 7.3 g/dL (6.4-8.2)
[2020-12-13 07:54] LABS: Ferritin 1925 ng/mL (26-388)
[2020-12-13] MEDS: Bisacodyl 5 MG TABEC PO (07:59)
[2020-12-13] MEDS: Doxycycline Hyclate 100 MG CAP PO ×2 (07:59→21:15)
[2020-12-13] MEDS: Metoprolol 12.5 MG TAB PO (08:00)
[2020-12-13] MEDS: Dexamethasone 10 MG/ML VIAL 6 MG IVP (08:01)
[2020-12-13] MEDS: Enoxaparin 40 MG/0.4 ML SYR SC (08:01)
[2020-12-13 08:02] LABS: C-Reactive Protein 4.97 mg/dL (0.0-0.3)
[2020-12-13] MEDS: Famotidine 20 MG TAB PO ×2 (08:02→21:15)
[2020-12-13] MEDS: Benzonatate 100 MG CAP PO ×3 (08:02→21:15)
[2020-12-13] MEDS: Cholecalciferol (Vitamin D3) 1,000 UNIT TAB 2000 UNITS PO (08:02)
[2020-12-13] MEDS: Potassium Chloride 20 MEQ TABCR PO ×2 (08:03→21:16)
[2020-12-13] MEDS: Zinc Sulfate 220 MG TAB PO (08:03)
[2020-12-13] MEDS: Normal Saline Flush 10 ML SYR IVP (08:06)
--- NOTE | 2020-12-13 09:15 | DI.RAD_ITS ---
Exam(s) XR PORTABLE CHEST AP EXAM: XR PORTABLE CHEST AP CLINICAL HISTORY: 5603 TECHNIQUE: COMPARISON: CR,XR XR PORTABLE CHEST AP POST LINE from 12/12/2020 FINDINGS: Semi upright portable chest at 0900 hours. Note is again made of left thoracotomy tube in position. No gross recurrent pneumothorax seen. Bilateral predominantly peripheral pulmonary infiltrates agai n noted. IMPRESSION: No significant change from prior study. RADIATION DOSE DELIVERED: Total DLP
--- NOTE | 2020-12-13 09:54 | CMPROGNOTE_ITS ---
- If Service Date Differs Date of service: 12/13/20 Time of Service: 17:43 Care Management Progress Note S/O: Kosta continues to be closely monitored and treated for Covid. Over the weekend, CM provided Kosta with a medicaid application and application for [facility] financial assistance. Anticipate possible [facility] referral as well. CM will continue to follow. A: 40 year old male admitted to [facility] on 12/09/20 for Covid-19 Pneumonia P: Anticipate Kosta will be discharged home via private vehicle when medically cleared by . He will continue to be evaluated for home O2 and VNA needs upon discharge. Financial applications provided, [facility] referral being considered. CM will continue to support discharge planning needs.
--- NOTE | 2020-12-13 10:15 | DI.RAD_ITS ---
Exam(s) XR CHEST 2V PA LATERAL EXAM: XR CHEST 2V PA LATERAL CLINICAL HISTORY: S/P fall TECHNIQUE: COMPARISON: CR XR PORTABLE CHEST AP from 12/13/2020 FINDINGS: The heart is not enlarged. Left thoracotomy tube is again noted in position. There appears to be a small persistent or recurrent left apical pneumothorax, not visualized on semi upright portable films obtained earlier today. No other significant change seen bilateral predominantly peripheral intrapu lmonary infiltrates again noted consistent with COVID pneumonia. IMPRESSION: Small left apical pneumothorax now visible. No other significant change. RADIATION DOSE DELIVERED: Total DLP
--- NOTE | 2020-12-13 11:05 | DI.CT_ITS ---
Exam(s) CT HEAD WO EXAM: CT HEAD WO CLINICAL HISTORY: closed head injury; s/p fall. TECHNIQUE: Imaging Protocol: Axial computed tomography images with coronal and sagittal reformatted images were created and reviewed COMPARISON: No exams were available for comparison FINDINGS: The ventricular system is normal in appearance. No evidence of acute intracranial hemorrhage, mass effect, or midline shift. The orbital structures are unremarkable. The temporal bone structures appear intact. Calvarium: Normal. Visualized Paranasal sinuses/Mastoids: Clear. IMPRESSION: Normal cranial CT. RADIATION DOSE DELIVERED: 749.41mGy.cm Total DLP 749.41mGy.cm Total DLP 36.45mGy CTDIvol DATA REPOSITORY: All CT scans at this facility are submitted to the National Radiology Data Registry (NRDR) Dose Index Registry (DIR) with the [employer] ([employer]). RADIATION OPTIMIZATION: All CT scans at this facility use at least one of these dose optimization te chniques: automated exposure control; mA and/or kV adjustment per patient size (includes targeted exa ms where dose is matched to clinical indication); or iterative reconstruction.
--- NOTE | 2020-12-13 11:14 | W.PM.PROGNOT ---
Date of Service Date of service: 12/13/20 Time of Service: 11:14 Assessment and Plan Assessment and plan (1) Syncope: Status: Acute Assessment and plan: Syncope probably secondary to hypovolemia and use of metoprolol. Hold his metoprolol for now and give him judicious low-dose bolus of saline. Critical care time spent with the patient as well as evaluating his studies and discussing the case with his primary care nurse was 30 minutes Qualifiers: Syncope type: unspecified Qualified Code(s): R55 - Syncope and collapse (2) Closed head injury: Status: Acute Assessment and plan: Secondary to orthostatic hypotension and syncopal event. Check CT of the head without contrast to rule out subdural bleed. Treat orthostasis with gentle IV fluid bolus. Withhold his Lopressor and monitor his blood pressure. Qualifiers: Encounter type: initial encounter Qualified Code(s): S09.90XA - Unspecified injury of head, initial encounter (3) Pneumothorax, left: Status: Acute Assessment and plan: Complication of COVID-19 pneumonia and requiring noninvasive positive pressure ventilation. Continue chest tube until air leak is resolved. Check follow-up chest x-ray while he is down in diagnostic imaging for his CT of his head (4) COVID-19: Status: Acute Assessment and plan: Continue Decadron, Remdesivir, baricitinib along with zinc and vitamin C and vitamin D. Encourage patient to practice proning to improve VQ mismatch. Continue noninvasive positive pressure ventilation and/or high flow nasal cannula. Maintain chest tube while he is on NIPPV. (5) Rhabdomyolysis: Status: Acute Assessment and plan: Continues to improve he has good urine output and creatinine is normal. CK level was not checked today I will add it to his morning labs. I think once CK level is down to under 1,000 we can stop checking CK levels. Qualifiers: Rhabdomyolysis type: non-traumatic Qualified Code(s): M62.82 - Rhabdomyolysis (6) Elevated transaminase level: Status: Acute Assessment and plan: probably d/t covid-19. Transaminase levels are stable. Hepatitis and HIV studies were checked and were all negative. (7) DVT prophylaxis: Status: Acute Assessment and plan: No evidence for DVT or pulmonary embolism on yesterday's imaging. Continue low-dose enoxaparin for DVT prophylaxis. Subjective Subjective Interval history since last seen: Patient was transferred to intensive care unit last night with a large left pneumothorax. Dr. Harmon came into the hospital and placed a chest tube. This improved his hypoxemia. However this morning patient was getting up to use the toilet unassisted had a syncopal spell and hit his head sustaining a closed head injury with the abrasion across the bridge of his nose. His nurse and rechecked his orthostatic vitals and was standing his systolic blood pressure dropped to the high 80s and low 90s. Patient did receive his Lopressor this morning but at that time his systolic blood pressure was around 110. I think the patient is a little volume depleted from the furosemide that he was put on in treating his COVID-19 pneumonia. I will give him a small fluid bolus of 250 mL and we will get a CT scan of his head to make sure he has had no subdural bleeding. Patient is currently on DVT prophylactic levels of Lovenox 40 mg subcutaneously daily. He was placed on full dose anticoagulation yesterday while he was being worked up for possible PE and DVT. No thromboembolism was found on either study yesterday. Patient is currently on high flow nasal cannula at 50 L/min and an FiO2 of 50% his oxygen saturations hanging out around 89%. Exam Narrative Exam Narrative: Middle-aged white male sitting up the side of the bed he is awake alert and oriented. HEENT is remarkable for an abrasion across the bridge of his nose. There is no periorbital ecchymosis no visible laceration of his scalp. Neck is supple nontender Lungs with bibasilar rales. Left anterior chest has good aeration. Left chest has a chest tube and is still demonstrating an air leak. Heart is regular but tachycardic without murmur rub Lower extremities without peripheral cyanosis or edema. He has normal range of motion and strength in both upper and lower extremities with no visible bruising of his knees or legs or arms. Objective Last Vital Signs Temp 36 C L 12/13/20 03:50 Pulse 106 H 12/13/20 09:01 Resp 12 12/13/20 09:01 BP 104/69 12/13/20 09:01 Pulse Ox 89 L 12/13/20 09:01 Laboratory Results - last 24 hr 12/10/20 12/10/20 12/12/20 07:25 07:25 10:55 WBC RBC Hgb Hct MCV MCH MCHC RDW Plt Count MPV Immature Gran % Neutrophils % Band Neutrophils % Lymphocytes % Atypical Lymphs % Monocytes % Eosinophils % Basophils % Nucleated RBC % Absolute Neutrophils Absolute Lymphocytes Absolute Monocytes Absolute Eosinophils Absolute Basophils RBC Morphology D-Dimer Sodium Potassium Chloride Carbon Dioxide Anion Gap BUN Creatinine Estimated GFR/1.73 m2 Glucose Calcium Ferritin Total Bilirubin AST ALT Alkaline Phosphatase Troponin I < 0.05 C-Reactive Protein NT-Pro-B Natriuret Pep 234 Total Protein Albumin Hepatitis A IgM Ab Negative Hep Bs Antigen Negative Hep B Core Total Ab Negative Hepatitis C Antibody Negative HIV 1&2 Ag/Ab, 4th Gen Negative 12/13/20 12/13/20 12/13/20 06:35 06:35 06:35 WBC 4.81 RBC 4.62 Hgb 13.9 Hct 41.7 MCV 90.3 MCH 30.1 MCHC 33.3 RDW 12.1 Plt Count 412 H MPV 9.0 Immature Gran % 0.0 Neutrophils % 80.0 Band Neutrophils % 2 Lymphocytes % 11.0 Atypical Lymphs % 3 Monocytes % 2.0 Eosinophils % 2.0 Basophils % 0.0 Nucleated RBC % 0 Absolute Neutrophils 3.94 Absolute Lymphocytes 0.67 L Absolute Monocytes 0.10 Absolute Eosinophils 0.10 Absolute Basophils 0.00 RBC Morphology Normal D-Dimer 1274 H Sodium 139 Potassium 4.3 Chloride 102 Carbon Dioxide 29.0 Anion Gap 8.0 BUN 21 H Creatinine 0.8 Estimated GFR/1.73 m2 >= 60.00 Glucose 120 H Calcium 9.0 Ferritin 1925 H Total Bilirubin 0.6 AST 124 H ALT 86 H Alkaline Phosphatase 49 Troponin I C-Reactive Protein 4.97 H NT-Pro-B Natriuret Pep Total Protein 7.3 Albumin 2.4 L Hepatitis A IgM Ab Hep Bs Antigen Hep B Core Total Ab Hepatitis C Antibody HIV 1&2 Ag/Ab, 4th Gen
--- NOTE | 2020-12-13 11:53 | W.NUTRFU ---
Date of service: 12/13/20 Time of Service: 11:53 Nutrition Note NOTE: Mr. Song has poor PO intake on a regular diet. His BMI is 33.3 kg/m2 c/w class 1 obesity. Will continue to watch PO intake and monitor nutritional status. Time Spent in Nutritional Counseling and Treatment: 0
[2020-12-13] MEDS: Normal Saline 250 ML IV (12:02)
[2020-12-13] MEDS: Acetaminophen 500 MG TAB 1000 MG PO ×2 (14:05→21:16)
[2020-12-13 15:47] LABS: Creatine Kinase 1111 U/L (39-308)
[2020-12-13 15:51] LABS: Streptococcus Pneumoniae Ag, U Negative (Negative)
--- NOTE | 2020-12-13 17:38 | W.PM.PROGNOT ---
Date of Service Date of service: 12/13/20 Time of Service: 17:38 Assessment and Plan Assessment and plan (1) Pneumothorax, left: Status: Acute (2) Obstipation: Status: Acute (3) At high risk for inadequate nutritional intake: Status: Acute Subjective Subjective Interval history since last seen: pt had a vago-vagal episode adn fell in room. no air leak Pt requiring CPAP this afternoon- ok to start. CXR show that his lung is up air leak off in on. Will leave to suction while he is on CPAP CXR in am -pt not had bm since admission (12/09). Added miralax. -pt is not eating (too sick). not receiving adequate nutrition. Continue to do calorie counts and protein supplements. Encourage eating. Objective Last Vital Signs Temp 36.4 C L 12/13/20 14:30 Pulse 115 H 12/13/20 16:01 Resp 19 12/13/20 17:01 BP 115/83 12/13/20 17:01 Pulse Ox 96 12/13/20 16:02 Laboratory Results - last 24 hr 12/10/20 12/13/20 12/13/20 12:30 06:35 06:35 WBC 4.81 RBC 4.62 Hgb 13.9 Hct 41.7 MCV 90.3 MCH 30.1 MCHC 33.3 RDW 12.1 Plt Count 412 H MPV 9.0 Immature Gran % 0.0 Neutrophils % 80.0 Band Neutrophils % 2 Lymphocytes % 11.0 Atypical Lymphs % 3 Monocytes % 2.0 Eosinophils % 2.0 Basophils % 0.0 Nucleated RBC % 0 Absolute Neutrophils 3.94 Absolute Lymphocytes 0.67 L Absolute Monocytes 0.10 Absolute Eosinophils 0.10 Absolute Basophils 0.00 RBC Morphology Normal D-Dimer Sodium 139 Potassium 4.3 Chloride 102 Carbon Dioxide 29.0 Anion Gap 8.0 BUN 21 H Creatinine 0.8 Estimated GFR/1.73 m2 >= 60.00 Glucose 120 H Calcium 9.0 Ferritin 1925 H Total Bilirubin 0.6 AST 124 H ALT 86 H Alkaline Phosphatase 49 Creatine Kinase 1111 H C-Reactive Protein 4.97 H Total Protein 7.3 Albumin 2.4 L Ur Strep pneumoniae Ag Negative 12/13/20 06:35 WBC RBC Hgb Hct MCV MCH MCHC RDW Plt Count MPV Immature Gran % Neutrophils % Band Neutrophils % Lymphocytes % Atypical Lymphs % Monocytes % Eosinophils % Basophils % Nucleated RBC % Absolute Neutrophils Absolute Lymphocytes Absolute Monocytes Absolute Eosinophils Absolute Basophils RBC Morphology D-Dimer 1274 H Sodium Potassium Chloride Carbon Dioxide Anion Gap BUN Creatinine Estimated GFR/1.73 m2 Glucose Calcium Ferritin Total Bilirubin AST ALT Alkaline Phosphatase Creatine Kinase C-Reactive Protein Total Protein Albumin Ur Strep pneumoniae Ag
[2020-12-13] MEDS: Atorvastatin 40 MG TAB PO (21:15)
[2020-12-13] MEDS: Melatonin 3 MG TAB 6 MG PO (21:16)
[2020-12-13] MEDS: Protein Nutritional Supplement 16 GM 1 OUNCE PACKET PO (21:16)
[2020-12-13] MEDS: Polyethylene Glycol 3350 17 GM PACKET PO (21:17)
[2020-12-14] VITALS (51 sets, daily range): BP systolic 92–123; BP diastolic 51–79; PULSE 68–148; RESP 12–35; TEMP 34–36.8; O2SAT 88–97
[2020-12-14] MEDS: Acetaminophen 500 MG TAB 1000 MG PO ×3 (06:04→22:54)
[2020-12-14 07:54] LABS: Abs Immature Grans 0.05 10^3/uL (0.0-0.06); Absolute Basophil Count 0.01 10^3/uL (0.0-0.2); Absolute Eosinophil Count 0.14 10^3/uL (0.0-0.7); Absolute Lymphocyte Count 0.76 10^3/uL (1.2-3.4); Absolute Monocyte Count 0.15 10^3/uL (0.1-0.8); Basophils % 0.2; Eosinophils % 2.2; HCT 43.5 % (40.0-50.0); HGB 14.3 g/dL (13.5-17.5); Immature Grans % 0.8; Lymphocytes % 11.8; MCH 30.2 pg (27.0-33.0); MCHC 32.9 % (32.0-36.0); MCV 91.8 fL (80-95); Monocytes % 2.3; Neutrophils % 82.7; Nucleated RBC 0 %; Platelet Count 440 10^3/uL (130-400); RBC 4.74 10^6/uL (4.36-5.78); RDW 11.8 % (11.8-14.1); RDW-SD 40.1 fL; WBC 6.45 10^3/uL (4.4-10.8)
[2020-12-14 07:55] LABS: Absolute Neutrophil Count 5.33 10^3/uL (1.2-6.7)
[2020-12-14 08:25] LABS: D-Dimer 2034 ng/mlFEU (<500)
--- NOTE | 2020-12-14 08:30 | DI.RAD_ITS ---
Exam(s) XR PORTABLE CHEST AP EXAM: XR PORTABLE CHEST AP CLINICAL HISTORY: ptx. TECHNIQUE: 2D digital imaging was performed. COMPARISON: CR XR PORTABLE CHEST AP from 12/13/2020 CR XR CHEST 2V PA LATERAL from 12/13/2020 CR XR CHEST 2V PA LATERAL from 12/13/2020 CR XR PORTABLE CHEST AP from 12/13/2020 FINDINGS: Heart size is upper normal. The mediastinum is not widened. Left pigtail catheter is again noted. Unchanged position. The size of the left pneumothorax is decr eased from yesterday, approximately 5 percent on today's study. Lung lorenzo otherwise unchanged. Mi ldly elevated right hemidiaphragm is again noted. IMPRESSION: Approximately 5 percent remaining left pneumothorax; less than yesterday. Other findings as above. DATA REPOSITORY: RADIATION DOSE DELIVERED: All CT scans at this facility use at least one of these dose optimization techniques: automated exposure control; mA and/or kV adjustment per patient size (includes targeted e xams where dose is matched to clinical indication); or iterative reconstruction.
[2020-12-14] MEDS: Zinc Sulfate 220 MG TAB PO (08:31)
[2020-12-14] MEDS: Dexamethasone 10 MG/ML VIAL 6 MG IVP (08:31)
[2020-12-14] MEDS: Enoxaparin 40 MG/0.4 ML SYR SC (08:31)
[2020-12-14] MEDS: Famotidine 20 MG TAB PO ×2 (08:32→20:31)
[2020-12-14] MEDS: Protein Nutritional Supplement 16 GM 1 OUNCE PACKET PO ×2 (08:32→20:31)
[2020-12-14] MEDS: Bisacodyl 5 MG TABEC PO (08:32)
[2020-12-14] MEDS: Benzonatate 100 MG CAP PO ×3 (08:32→20:31)
[2020-12-14] MEDS: Potassium Chloride 20 MEQ TABCR PO ×2 (08:32→20:31)
[2020-12-14] MEDS: Doxycycline Hyclate 100 MG CAP PO ×2 (08:32→20:31)
[2020-12-14] MEDS: Cholecalciferol (Vitamin D3) 1,000 UNIT TAB 2000 UNITS PO (08:32)
[2020-12-14] MEDS: Polyethylene Glycol 3350 17 GM PACKET PO (08:32)
[2020-12-14 08:40] LABS: ALT 80 U/L (16-63); AST 142 U/L (15-37); Albumin 2.4 g/dL (3.4-5.0); Alkaline Phosphatase 51 U/L (46-116); Anion Gap 7.7 mmol/L (3-11); BUN 22 mg/dL (7-18); Bilirubin, Total 0.6 mg/dL (0.2-1.0); C-Reactive Protein 5.09 mg/dL (0.0-0.3); CO2 28.3 mmol/L (21.0-32.0); CREATININE 0.8 mg/dL (0.70-1.30); Calcium 9.3 mg/dL (8.5-10.1); Chloride 104 mmol/L (98-107); Glucose 111 mg/dL (74-106); Potassium 4.6 mmol/L (3.5-5.1); Sodium 140 mmol/L (136-145); Total Protein 7.5 g/dL (6.4-8.2)
--- NOTE | 2020-12-14 09:18 | PDOC.CMPRO ---
- If Service Date Differs Date of service: 12/14/20 Time of Service: 09:18 Care Management Progress Note S/O: CM was unable to meet with Kosta over the phone, he did not answer his room or cell phone. Per nursing he was sleeping. Kosta had a vago-vasal episode yesterday and fell in his room, he also continues to be treated for covid and requires close monitoring in the ICU. A nutrition consult was done today, since he reportedly feels too sick to eat. Ensure pudding will be added to his breakfast tray and Ensure plus to has lunch and dinner trays. CM will continue to monitor. A: 40 year old male admitted to [facility] on 12/09/20 for Covid-19 Pneumonia P: Anticipate Kosta will be discharged home via private vehicle when medically cleared by MD. He will continue to be evaluated for home O2 and VNA needs upon discharge. Financial applications provided, [facility] referral being considered. CM will continue to support discharge planning needs.
[2020-12-14 09:31] LABS: Ferritin > 2000 ng/mL (26-388)
--- NOTE | 2020-12-14 12:34 | NUR.NOTE ---
PT is waiting to get washed up until his bag of clothes is here that way when he is done he can put clean shorts and underwear on. RN notified. PT also asking to speak with MD. This chief writer informed the patient that I will let MD know Nursing Note:
--- NOTE | 2020-12-14 12:43 | W.NUTRFU ---
Date of service: 12/14/20 Time of Service: 12:43 Nutrition Note NOTE: Assessment: 40yo male positive for COVID. L pneumothorax (chest tube paced), rhabdomyolysis, elevated LFT?s, DVT prophylaxis with hx of Lyme disease and tachycardia. Obstipation noted with no BM noted since 12/11. Current diet order of high kcal/protein diet order with protein supplement TID ? calorie count initiated. No significant weight changes during current admission (and most likely changes due to fluid loss). Unable to speak with pt and obtain nutrition related history accurately. Verified with ICU that still no BM this morning but bowel sounds present all 4 quads. At least 4 days noted with only water and apple juice as intake. Estimated nutrition needs: 2500 kcals (REEx1.2AF), 109-145g protein (1.5-2g/kg IBW), 2733mL fluid as tolerated (obese adult pt method). Current order for liquid protein supplement TID to provide 45g protein and 180 kcals per day. High kcal/pro shake ordered BID today. Diagnosis: Inadequate protein energy intake r/t increased nutrition needs during critical illness and poor po intake AEB <50% of nutrition needs met over the last 4 days with no BM. Intervention: will add 8oz Ensure Plus to lunch and dinner trays and Ensure pudding to breakfast trays. This combined with 3 protein pouches supplies: 1050 kcals, 86g protein and 563mL fluid. Calorie count initiated ? will coordinate between kitchen and ICU as to collection of data for this. If poor intake, tray refusal or npo continue to Saturday, would recommend nutrition support such as tube feeding and initiate Montoring/evaluation: Will collect and report on calorie count data and track intake of supplements. Monitor for wt changes, bowel activity and pertinent labs. Time Spent in Nutritional Counseling and Treatment: 0
--- NOTE | 2020-12-14 14:53 | PHA.REVIEW ---
Pharmacy Admission Review - Admission Clinical Review (Last Updated 12/10/20 @ 01:28 by Aditya Acuña) At high risk for inadequate nutritional intake (Acute) Obstipation (Acute) Syncope (Acute) Closed head injury (Acute) Pneumothorax, left (Acute) DVT prophylaxis (Acute) Elevated transaminase level (Acute) COVID-19 (Acute) Rhabdomyolysis (Acute) Hypoxia (Acute) Sulfa (Sulfonamide Antibiotics) Allergy (Unknown, Verified 12/09/20 14:05) Resuscitation Status Full Code Height 5 ft 9 in Weight 102.2 kg - Renal Dosing Renal Dosing: BUN 22 mg/dL (7-18) H 12/14/20 07:40 Creatinine 0.8 mg/dL (0.70-1.30) 12/14/20 07:40 Medications needing adjustments: Reviewed - Anticoagulation Anticoagulation: Hgb 14.3 g/dL (13.5-17.5) 12/14/20 07:40 Hct 43.5 % (40.0-50.0) 12/14/20 07:40 Plt Count 440 10^3/uL (130-400) H 12/14/20 07:40 INR 1.2 (0.9-1.1) H 12/10/20 11:40 Creatinine 0.8 mg/dL (0.70-1.30) 12/14/20 07:40 Medications: Enoxaparin (dose increased to low intensity dosing at 30mg q12h due to increase of d-dimer) - Opiate Usage Evaluate Pain Scale/Pains Meds: Reviewed Scheduled Bowel Reg ordered if on Opiates?: Yes - Relevant Labs Sodium 140 mmol/L (136-145) 12/14/20 07:40 Potassium 4.6 mmol/L (3.5-5.1) 12/14/20 07:40 Chloride 104 mmol/L (98-107) 12/14/20 07:40 Magnesium 2.3 mg/dL (1.8-2.4) 12/09/20 14:08 C-Reactive Protein 5.09 mg/dL (0.0-0.3) H 12/14/20 07:40 Electrolytes, C-Reactive P, ESR: Reviewed - DM Control DM Control: Glucose 111 mg/dL (74-106) H 12/14/20 07:40 Insulin Dosing: N/A - Heart Failure/NC Heart Failure/NC: Troponin I < 0.05 ng/mL (<0.06) 12/12/20 10:55 NT-Pro-B Natriuret Pep 234 pg/mL (<300) 12/12/20 10:55 EF%, FLO's, B-Blockers, Diuretics: Reviewed - BP Control BP Control: Blood Pressure 98/61 Blood Pressure 112/68 Blood Pressure 113/74 Blood Pressure 105/66 Blood Pressure 107/62 Blood Pressure 122/60 Blood Pressure 109/66 Blood Pressure 123/63 Blood Pressure 105/66 If elevated: Reviewed List meds needing interventions: metoprolol is on hold - Qtc Review If Elevated: Reviewed - IV to PO Switch IV Medications: Reviewed - Home Meds Home Med List reviewed: Reviewed Relevent Home Meds Not ordered & why?: metoprolol ordered but on hold due to low BP, tetracycline not ordered but doubt this is still an active med... - Current meds Current Medication Order Review: Reviewed (added prothrombin time to daily COAG orders -- need to be monitoring PT while on remdesivir; will confirm with MD if remdesivir should continue beyond 5 days)
--- NOTE | 2020-12-14 16:13 | W.PM.PROGNOT ---
Date of Service Date of service: 12/14/20 Time of Service: 16:13 Assessment and Plan Assessment and plan (1) COVID-19: Status: Acute Assessment and plan: Improved Oxygenation On CPAP at night, high flow during the day (2) Pneumothorax, left: Status: Acute Assessment and plan: Chest tube in good position Continue with Chest tube to suction until he no loner needs the CPAP. Subjective Subjective Interval history since last seen: Patient continues to need CPAP in the evenings. He is on high flow during the day. He is doing a little better per nursing. CXR reviewed. Chest tube in good position. Objective Last Vital Signs Temp 97.5 F L 12/14/20 13:34 Pulse 102 H 12/14/20 13:34 Resp 22 12/14/20 11:40 BP 98/61 L 12/14/20 11:01 Pulse Ox 96 12/14/20 13:34 Laboratory Results - last 24 hr 12/10/20 12/14/20 12/14/20 12:30 07:40 07:40 WBC 6.45 D RBC 4.74 Hgb 14.3 Hct 43.5 MCV 91.8 MCH 30.2 MCHC 32.9 RDW 11.8 Plt Count 440 H MPV 9.0 Immature Gran % 0.8 Neutrophils % 82.7 Lymphocytes % 11.8 Monocytes % 2.3 Eosinophils % 2.2 Basophils % 0.2 Nucleated RBC % 0 Absolute Neutrophils 5.33 Absolute Lymphocytes 0.76 L Absolute Monocytes 0.15 Absolute Eosinophils 0.14 Absolute Basophils 0.01 D-Dimer Sodium 140 Potassium 4.6 Chloride 104 Carbon Dioxide 28.3 Anion Gap 7.7 BUN 22 H Creatinine 0.8 Estimated GFR/1.73 m2 >= 60.00 Glucose 111 H Calcium 9.3 Ferritin > 2000 H Total Bilirubin 0.6 AST 142 H ALT 80 H Alkaline Phosphatase 51 C-Reactive Protein 5.09 H Total Protein 7.5 Albumin 2.4 L Ur Strep pneumoniae Ag Negative 12/14/20 07:40 WBC RBC Hgb Hct MCV MCH MCHC RDW Plt Count MPV Immature Gran % Neutrophils % Lymphocytes % Monocytes % Eosinophils % Basophils % Nucleated RBC % Absolute Neutrophils Absolute Lymphocytes Absolute Monocytes Absolute Eosinophils Absolute Basophils D-Dimer 2034 H Sodium Potassium Chloride Carbon Dioxide Anion Gap BUN Creatinine Estimated GFR/1.73 m2 Glucose Calcium Ferritin Total Bilirubin AST ALT Alkaline Phosphatase C-Reactive Protein Total Protein Albumin Ur Strep pneumoniae Ag
--- NOTE | 2020-12-14 16:49 | PGE_ITS ---
Date of Service Date of service: 12/14/20 Time of Service: 16:49 Assessment and Plan Assessment and plan (1) COVID-19: Status: Acute Assessment and plan: Continue Decadron, Remdesivir, baricitinib along with zinc and vitamin C and vitamin D. Encourage patient to practice proning to improve VQ mismatch. Continue noninvasive positive pressure ventilation and/or high flow nasal cannula. Maintain chest tube while he is on NIPPV. (2) Pneumothorax, left: Status: Acute Assessment and plan: Complication of COVID-19 pneumonia and requiring noninvasive positive pressure ventilation. Continue chest tube until he is off NIPPV. (3) Closed head injury: Status: Acute Assessment and plan: CT head yesterday was negative. continue to monitor. No sequelae.. Qualifiers: Encounter type: initial encounter Qualified Code(s): S09.90XA - Unsp ecified injury of head, initial encounter (4) Rhabdomyolysis: Status: Acute Assessment and plan: improving. CK down to 1000. avoid iv fluids in light of COVID-19. Qualifiers: Rhabdomyolysis type: non-traumatic Qualified Code(s): M62.82 - Rhabdomyolysis (5) Elevated transaminase level: Status: Acute Assessment and plan: probably d/t covid-19. Transaminase levels are stable. Hepatitis and HIV studies were checked and were all negative. (6) DVT prophylaxis: Status: Acute Assessment and plan: No evidence for DVT or pulmonary embolism. Continue low-dose enoxaparin for DVT prophylaxis. Subjective Subjective Interval history since last seen: Patient has mild left chest pain w/ coughing and deep breathing. He still has a chest tube in the left hemithorax. It is connected to wall suction at 20 cm. He remains on HFNC at 50 LPM although he has been on CPAP at times. His oxygen saturation has been as low as 89% but mostly has been 92 to 96%. He says that he has been producing sputum but what he showed me is actually salive rather than mucous. He is afebrile. He has poor appetite. Exam Narrative Exam Narrative: Middle age white male alert and oriented x 3 sitting up in bed. I reviewed with him the importance of proning and sitting up in the chair and when not proning then at least rolling from side to side to prevent atelectasis. Lungs: bibasilar rales; some adventitious breath sounds on the left from the chest tube and suction; no rhonchi Heart: regular but tachycardia; no murmur Abdomen:soft, nontender, no guarding Extremities: no edema Objective Last Vital Signs Temp 36.4 C L 12/14/20 13:34 Pulse 102 H 12/14/20 13:34 Resp 22 12/14/20 11:40 BP 98/61 L 12/14/20 11:01 Pulse Ox 96 12/14/20 13:34 Laboratory Results - last 24 hr 12/10/20 12/14/20 12/14/20 12:30 07:40 07:40 WBC 6.45 D RBC 4.74 Hgb 14.3 Hct 43.5 MCV 91.8 MCH 30.2 MCHC 32.9 RDW 11.8 Plt Count 440 H MPV 9.0 Immature Gran % 0.8 Neutrophils % 82.7 Lymphocytes % 11.8 Monocytes % 2.3 Eosinophils % 2.2 Basophils % 0.2 Nucleated RBC % 0 Absolute Neutrophils 5.33 Absolute Lymphocytes 0.76 L Absolute Monocytes 0.15 Absolute Eosinophils 0.14 Absolute Basophils 0.01 D-Dimer Sodium 140 Potassium 4.6 Chloride 104 Carbon Dioxide 28.3 Anion Gap 7.7 BUN 22 H Creatinine 0.8 Estimated GFR/1.73 m2 >= 60.00 Glucose 111 H Calcium 9.3 Ferritin > 2000 H Total Bilirubin 0.6 AST 142 H ALT 80 H Alkaline Phosphatase 51 C-Reactive Protein 5.09 H Total Protein 7.5 Albumin 2.4 L Ur Strep pneumoniae Ag Negative 12/14/20 07:40 WBC RBC Hgb Hct MCV MCH MCHC RDW Plt Count MPV Immature Gran % Neutrophils % Lymphocytes % Monocytes % Eosinophils % Basophils % Nucleated RBC % Absolute Neutrophils Absolute Lymphocytes Absolute Monocytes Absolute Eosinophils Absolute Basophils D-Dimer 2034 H Sodium Potassium Chloride Carbon Dioxide Anion Gap BUN Creatinine Estimated GFR/1.73 m2 Glucose Calcium Ferritin Total Bilirubin AST ALT Alkaline Phosphatase C-Reactive Protein Total Protein Albumin Ur Strep pneumoniae Ag Objective Narrative Objective Narrative: PCXR: FINDINGS: Heart size is upper normal. The mediastinum is not widened. Left pigtail catheter is again noted. Unchanged position. The size of the left pneumothorax is decreased from yesterday, approximately 5 percent on today's study. Lung lorenzo otherwise unchanged. Mildly elevated right hemidiaphragm is again noted. IMPRESSION: Approximately 5 percent remaining left pneumothorax; less than yesterday. Other findings as above.
[2020-12-14] MEDS: Enoxaparin 30 MG/0.3 ML SYR SC (20:31)
[2020-12-14] MEDS: Melatonin 3 MG TAB 6 MG PO (20:32)
[2020-12-14] MEDS: Atorvastatin 40 MG TAB PO (20:32)
[2020-12-14] MEDS: oxyCODONE 5 MG TAB PO (20:32)
[2020-12-15] VITALS (63 sets, daily range): BP systolic 62–125; BP diastolic 40–92; PULSE 63–152; RESP 11–28; TEMP 34–36.9; O2SAT 86–99
[2020-12-15] MEDS: Acetaminophen 500 MG TAB 1000 MG PO ×3 (04:57→21:33)
[2020-12-15 07:20] LABS: Abs Immature Grans 0.04 10^3/uL (0.0-0.06); Absolute Eosinophil Count 0.12 10^3/uL (0.0-0.7); Absolute Lymphocyte Count 0.79 10^3/uL (1.2-3.4); Absolute Monocyte Count 0.17 10^3/uL (0.1-0.8); Absolute Neutrophil Count 6.03 10^3/uL (1.2-6.7); Eosinophils % 1.7; HCT 41.7 % (40.0-50.0); HGB 13.8 g/dL (13.5-17.5); Immature Grans % 0.6; MCH 29.7 pg (27.0-33.0); MCHC 33.1 % (32.0-36.0); MCV 89.7 fL (80-95); MPV 9.1 fL (8.0-11.0); Monocytes % 2.4; Neutrophils % 84.3; Nucleated RBC 0 %; Platelet Count 455 10^3/uL (130-400); RBC 4.65 10^6/uL (4.36-5.78); RDW-SD 39.1 fL; WBC 7.15 10^3/uL (4.4-10.8)
[2020-12-15 07:41] LABS: ALT 78 U/L (16-63); AST 148 U/L (15-37); Albumin 2.3 g/dL (3.4-5.0); Alkaline Phosphatase 48 U/L (46-116); Anion Gap 3.5 mmol/L (3-11); BUN 26 mg/dL (7-18); Bilirubin, Total 0.7 mg/dL (0.2-1.0); C-Reactive Protein 4.44 mg/dL (0.0-0.3); CO2 29.5 mmol/L (21.0-32.0); CREATININE 0.8 mg/dL (0.70-1.30); Calcium 9.1 mg/dL (8.5-10.1); Chloride 102 mmol/L (98-107); Creatine Kinase 880 U/L (39-308); Glucose 98 mg/dL (74-106); Potassium 4.2 mmol/L (3.5-5.1); Sodium 135 mmol/L (136-145); Total Protein 7.1 g/dL (6.4-8.2)
[2020-12-15 07:49] LABS: INR 1.1 (0.9-1.1); Prothrombin Time 11.5 sec (9.3-11.0)
[2020-12-15 08:10] LABS: D-Dimer 1840 ng/mlFEU (<500)
--- NOTE | 2020-12-15 08:30 | DI.RAD_ITS ---
Exam(s) XR PORTABLE CHEST AP EXAM: XR PORTABLE CHEST AP CLINICAL HISTORY: ptx. TECHNIQUE: 2D digital imaging was performed. COMPARISON: CR XR PORTABLE CHEST AP from 12/14/2020 FINDINGS: Heart size is upper normal. The mediastinum is not widened. Position of left chest tube is unchanged small 5-10 percent left pneumothorax is unchanged from yeste rday. Elevation of the right hemidiaphragm is again noted. Increased markings in both lung lorenzo a ppear unchanged and there are no obvious pleural effusions. IMPRESSION: No significant change compared to yesterday. DATA REPOSITORY: RADIATION DOSE DELIVERED: All CT scans at this facility use at least one of these dose optimization techniques: automated exposure control; mA and/or kV adjustment per patient size (includes targeted e xams where dose is matched to clinical indication); or iterative reconstruction.
[2020-12-15] MEDS: Normal Saline Flush 10 ML SYR IVP ×2 (08:32→23:02)
[2020-12-15] MEDS: Bisacodyl 5 MG TABEC PO (08:33)
[2020-12-15] MEDS: Enoxaparin 30 MG/0.3 ML SYR SC ×2 (08:33→18:32)
[2020-12-15] MEDS: Famotidine 20 MG TAB PO ×2 (08:34→18:32)
[2020-12-15] MEDS: Cholecalciferol (Vitamin D3) 1,000 UNIT TAB 2000 UNITS PO (08:34)
[2020-12-15] MEDS: Zinc Sulfate 220 MG TAB PO (08:34)
[2020-12-15] MEDS: Dexamethasone 10 MG/ML VIAL 6 MG IVP (08:34)
[2020-12-15] MEDS: Protein Nutritional Supplement 16 GM 1 OUNCE PACKET PO ×3 (08:35→18:32)
[2020-12-15] MEDS: Benzonatate 100 MG CAP PO ×3 (08:35→18:32)
[2020-12-15] MEDS: Polyethylene Glycol 3350 17 GM PACKET PO (08:35)
[2020-12-15 08:36] LABS: Ferritin > 2000 ng/mL (26-388)
--- NOTE | 2020-12-15 08:41 | CMPROGNOTE_ITS ---
- If Service Date Differs Date of service: 12/15/20 Time of Service: 08:41 Care Management Progress Note S/O: CM was unable to reach Kosta via phone. Per report he remains in the ICU for close monitoring and treatment for Covid. He use positions that support his respiratory function. Per provider notes: he should be sitting upright at all times and when he is not sitting upright he needs to either be proning or lying on his right side. Additionally, per Dr. Harmon his chest tube should remain until he no longer requires positive pressure ventilation. A: 40 year old male admitted to [facility] on 12/09/20 for Covid-19 Pneumonia P: Anticipate Kosta will be discharged home via private vehicle when medically cleared by MD. He will continue to be evaluated for home O2 and VNA needs upon discharge. Financial applications provided, [facility] referral being considered. CM will continue to reach Kosta by phone and support discharge planning needs.
[2020-12-15] MEDS: Doxycycline Hyclate 100 MG CAP PO ×2 (08:46→18:33)
[2020-12-15] MEDS: Potassium Chloride 20 MEQ TABCR PO ×2 (08:47→18:33)
--- NOTE | 2020-12-15 09:27 | W.PM.PROGNOT ---
Date of Service Date of service: 12/15/20 Time of Service: 09:28 Subjective Subjective Interval history since last seen: pt still has a small air leak when he is coughing. He still has a violent cough. He has 5% PTX on XR Pt has been non-compliant w/ medical advice. Won't prone or wear CPAP I did review the case w/ Dr. Acuña. There is a high probability that he will require mechanical ventilation. Will keep tube in place and on suction at this time. -pt still eating poorly. Nutrition consult appreciated. continue protein supplements. _pt did have BM. _pt had episode of N/V today. Prob multi-facturial- air hunger/anxiety/ileus from immobility. Pt did have a BM today. Pt is on pepcid for GI prophalaxis. will continue to follow 20 mins spent in F/u. Objective Last Vital Signs Temp 36.8 C 12/15/20 04:30 Pulse 115 H 12/15/20 09:00 Resp 20 12/15/20 09:01 BP 110/74 12/15/20 09:00 Pulse Ox 86 L 12/15/20 09:01 Laboratory Results - last 24 hr 12/14/20 12/15/20 12/15/20 07:40 07:00 07:00 WBC RBC Hgb Hct MCV MCH MCHC RDW Plt Count MPV Immature Gran % Neutrophils % Lymphocytes % Monocytes % Eosinophils % Basophils % Nucleated RBC % Absolute Neutrophils Absolute Lymphocytes Absolute Monocytes Absolute Eosinophils Absolute Basophils PT 11.5 H INR 1.1 D-Dimer 1840 H Sodium 135 L Potassium 4.2 Chloride 102 Carbon Dioxide 29.5 Anion Gap 3.5 BUN 26 H Creatinine 0.8 Estimated GFR/1.73 m2 >= 60.00 Glucose 98 Calcium 9.1 Ferritin > 2000 H > 2000 H Total Bilirubin 0.7 AST 148 H ALT 78 H Alkaline Phosphatase 48 Creatine Kinase 880 H C-Reactive Protein 4.44 H Total Protein 7.1 Albumin 2.3 L 12/15/20 07:00 WBC 7.15 RBC 4.65 Hgb 13.8 Hct 41.7 MCV 89.7 MCH 29.7 MCHC 33.1 RDW 12.0 Plt Count 455 H MPV 9.1 Immature Gran % 0.6 Neutrophils % 84.3 Lymphocytes % 11.0 Monocytes % 2.4 Eosinophils % 1.7 Basophils % 0.0 Nucleated RBC % 0 Absolute Neutrophils 6.03 Absolute Lymphocytes 0.79 L Absolute Monocytes 0.17 Absolute Eosinophils 0.12 Absolute Basophils 0.00 PT INR D-Dimer Sodium Potassium Chloride Carbon Dioxide Anion Gap BUN Creatinine Estimated GFR/1.73 m2 Glucose Calcium Ferritin Total Bilirubin AST ALT Alkaline Phosphatase Creatine Kinase C-Reactive Protein Total Protein Albumin
[2020-12-15] MEDS: Metoclopramide 10 MG/2 ML VIAL IVP (13:26)
--- NOTE | 2020-12-15 13:28 | PGE_ITS ---
Date of Service Date of service: 12/15/20 Time of Service: 13:29 Assessment and Plan Assessment and plan (1) COVID-19: Status: Acute Assessment and plan: Continue Decadron, Remdesivir, baricitinib along with zinc and vitamin C and vitamin D. Encourage patient to practice proning to improve VQ mismatch. Continue noninvasive positive pressure ventilation and/or high flow nasal cannula. Maintain chest tube while he is on NIPPV. Case discussed with Dr. Annalise Harmon. Critical care time 30 minutes (2) Pneumothorax, left: Status: Acute Assessment and plan: Complication of COVID-19 pneumonia and requiring noninvasive positive pressure ventilation. Continue chest tube until he is off NIPPV. (3) Orthostatic hypotension: Status: Acute Assessment and plan: Unclear as to the etiology of his orthostatic hypotension. It is interesting that he says he was put on Lopressor for tachycardia associated with his Lyme's disease. It makes one suspect that he may have POTS disease. I asked the patient if he had seen a dope and fabric worker after his Lyme disease was diagnosed and he says no. I will put him on midodrine to help with his orthostatic hypotension and resume his Lopressor at a reduced dose of 6.25 mg p.o. 3 times daily. Because of his Covid pneumonia I am avoiding giving him any fluid boluses.He has exhibited no anemia. (4) Syncope: Status: Resolved Assessment and plan: No further syncopal spells although he still exhibits orthostatic hypotension. See above for treatment Qualifiers: Syncope type: unspecified Qualified Code(s): R55 - Syncope and collapse (5) Closed head injury: Status: Acute Assessment and plan: CT head 2 days ago was negative. continue to monitor. No sequelae. Qualifiers: Encounter type: initial encounter Qualified Code(s): S09.90XA - Unspecified injury of head, initial encounter (6) Rhabdomyolysis: Status: Resolved Assessment and plan: Resolved. Qualifiers: Rhabdomyolysis type: non-traumatic Qualified Code(s): M62.82 - Rhabdomyolysis (7) Elevated transaminase level: Status: Acute Assessment and plan: probably d/t covid-19. Transaminase levels are stable. Hepatitis and HIV studies were checked and were all negative. (8) DVT prophylaxis: Status: Acute Assessment and plan: No evidence for DVT or pulmonary embolism. Continue low-dose enoxaparin for DVT prophylaxis. Subjective Subjective Interval history since last seen: Patient has persistent sinus tachycardia with heart rates in the 120s upwards of 150 while standing. He is symptomatic with orthostasis although with standing his systolic blood pressure did remain at 110 mm. Patient's been noncompliant with wearing his CPAP mask. He is willing to allow nursing staff to shave him so that his CPAP will fit better because he does have a significant air leak. Oxygen status is still tenuous with saturations of 90 to 94% at rest but with any activity drops down into the 80s. But is not wearing the CPAP he is on high flow nasal cannula at 35 L/min CBC is essentially normal except for an absolute lymphocytopenia. D-dimer remains elevated at 1800. Ferritin level and transaminases remain elevated and his CRP remains elevated although is trending downward at 4.4. His CK is now down to 880. Renal function is normal with a creatinine of 0.8. Patient continues to have a chest tube in the left side and I discussed the case with Dr. Harmon as long as he requires noninvasive positive pressure ventilation we will leave the chest tube in place because of the high risk for recurrent pneumothorax. Exam Narrative Exam Narrative: Middle aged male who is lying in bed on his back. I explained to the patient and his nurse that he needs to be sitting upright at all times and when he is not sitting upright he needs to either be proning or lying on his right side. Lungs with diffuse rales no rhonchi or wheezing. Heart is regular but tachycardic Abdomen soft and nontender Extremities without edema Objective Last Vital Signs Temp 35.5 C L 12/15/20 11:49 Pulse 98 H 12/15/20 13:00 Resp 22 12/15/20 13:00 BP 94/52 L 12/15/20 13:00 Pulse Ox 94 12/15/20 13:00 Laboratory Results - last 24 hr 12/15/20 12/15/20 12/15/20 07:00 07:00 07:00 WBC 7.15 RBC 4.65 Hgb 13.8 Hct 41.7 MCV 89.7 MCH 29.7 MCHC 33.1 RDW 12.0 Plt Count 455 H MPV 9.1 Immature Gran % 0.6 Neutrophils % 84.3 Lymphocytes % 11.0 Monocytes % 2.4 Eosinophils % 1.7 Basophils % 0.0 Nucleated RBC % 0 Absolute Neutrophils 6.03 Absolute Lymphocytes 0.79 L Absolute Monocytes 0.17 Absolute Eosinophils 0.12 Absolute Basophils 0.00 PT 11.5 H INR 1.1 D-Dimer 1840 H Sodium 135 L Potassium 4.2 Chloride 102 Carbon Dioxide 29.5 Anion Gap 3.5 BUN 26 H Creatinine 0.8 Estimated GFR/1.73 m2 >= 60.00 Glucose 98 Calcium 9.1 Ferritin > 2000 H Total Bilirubin 0.7 AST 148 H ALT 78 H Alkaline Phosphatase 48 Creatine Kinase 880 H C-Reactive Protein 4.44 H Total Protein 7.1 Albumin 2.3 L
--- NOTE | 2020-12-15 14:27 | TELEFU_ITS ---
Date of service: 12/15/20 Time of Service: 14:28 Nutrition Note NOTE: Follow-up / calorie count: Day 1 of 3 for calorie count. Estimated intake 12/14/20 from 3 meal trays is 1604kcals (meeting 64% of estimated needs) and 61g protein (meeting 56% of estimated needs). Calorie count data more difficult to gather with noted COVID+ patient in ICU. Will continue to gather intake information today and tomorrow. Edgardo Nam NDTR ? Marketing Project Lead Time Spent in Nutritional Counseling and Treatment: 0
[2020-12-15] MEDS: Midodrine 2.5 MG TAB 5 MG PO ×2 (15:46→18:37)
[2020-12-15] MEDS: Metoprolol 12.5 MG TAB 6.25 MG PO (15:51)
[2020-12-15] MEDS: Atorvastatin 40 MG TAB PO (18:32)
[2020-12-15] MEDS: clonazePAM 0.5 MG TAB 0.25 MG PO (18:32)
[2020-12-15] MEDS: Docusate Sodium 100 MG CAP PO (18:32)
[2020-12-15] MEDS: MORPHine 2 MG/ML SYR IVP ×3 (19:00→23:02)
[2020-12-15] MEDS: Melatonin 3 MG TAB 6 MG PO (21:33)
[2020-12-15] MEDS: Senna TAB 1 TAB PO (21:33)
--- NOTE | 2020-12-15 22:00 | DI.RAD_ITS ---
Exam(s) XR PORTABLE CHEST AP EXAM: XR PORTABLE CHEST AP CLINICAL HISTORY: chest tube new pain after coughing TECHNIQUE: 2D digital imaging was performed. COMPARISON: CR XR PORTABLE CHEST AP from 12/15/2020 CR XR PORTABLE CHEST AP from 12/16/2020 CR XR PORTABLE CHEST AP from 12/16/2020 FINDINGS: Left chest tube unchanged in position. Slight interval increase in size of left pneumothorax. Bilat eral infiltrates in cardiac silhouette unchanged. IMPRESSION: Mild interval increase in size of left pneumothorax. DATA REPOSITORY: RADIATION DOSE DELIVERED:
--- NOTE | 2020-12-15 22:49 | DI.VRAD_ITS ---
PROCEDURE INFORMATION: Exam: XR Chest Exam date and time: 12/15/2020 10:07 PM Age: 40 years old Clinical indication: Other: Chest tube new pain after coughing TECHNIQUE: Imaging protocol: XR of the chest. Views: 1 view. COMPARISON: CR XR PORTABLE CHEST AP 12/15/2020 8:43 AM FINDINGS: Left-sided chest tube is grossly stable in position. Interstitial prominence is grossly stable. Small left apical pneumothorax not excluded. Right-sided opacities are grossly stable. Minimal right pleural fluid is grossly stable The heart, mediastinal and osseous structures are grossly stable IMPRESSION: Small left apical pneumothorax suspected in this patient with left-sided chest tube Dictated and Authenticated by: Esau Begum MD. Ordering:ANA Woody MD
[2020-12-15] MEDS: oxyCODONE 5 MG TAB PO (23:02)
[2020-12-16] VITALS (33 sets, daily range): BP systolic 91–130; BP diastolic 58–81; PULSE 65–137; RESP 11–35; TEMP 34–37.5; O2SAT 87–95
--- NOTE | 2020-12-16 | DI.RAD_ITS ---
Exam(s) XR PORTABLE CHEST AP EXAM: XR PORTABLE CHEST AP INDICATION: persistent ptx/possible rib Fx. COMPARISON: CR XR PORTABLE CHEST AP from 12/14/2020 CR XR PORTABLE CHEST AP from 12/15/2020 CR,XR XR PORTABLE CHEST AP from 12/15/2020 TECHNIQUE: 2D digital imaging was performed. FINDINGS: Left chest tube is unchanged in position. A tiny pneumothorax remains visible. It appears slightly i mproved when compared the previous exam the bilateral infiltrates are stable. The heart size is unch anged. No visible displaced rib fracture. IMPRESSION: Slight improvement in size of tiny left pneumothorax. No change in bilateral infiltrates. DATA REPOSITORY: RADIATION DOSE DELIVERED:
[2020-12-16] MEDS: MORPHine 2 MG/ML SYR IVP ×3 (03:03→09:09)
[2020-12-16] MEDS: Normal Saline Flush 10 ML SYR IVP ×4 (03:03→22:24)
[2020-12-16] MEDS: Acetaminophen 500 MG TAB 1000 MG PO ×3 (06:23→22:24)
[2020-12-16 07:02] LABS: Abs Immature Grans 0.02 10^3/uL (0.0-0.06); Absolute Basophil Count 0.01 10^3/uL (0.0-0.2); Absolute Eosinophil Count 0.06 10^3/uL (0.0-0.7); Absolute Lymphocyte Count 0.66 10^3/uL (1.2-3.4); Absolute Monocyte Count 0.16 10^3/uL (0.1-0.8); Absolute Neutrophil Count 3.41 10^3/uL (1.2-6.7); Basophils % 0.2; Eosinophils % 1.4; HCT 41.6 % (40.0-50.0); HGB 13.9 g/dL (13.5-17.5); Immature Grans % 0.5; Lymphocytes % 15.3; MCH 30.2 pg (27.0-33.0); MCHC 33.4 % (32.0-36.0); MCV 90.2 fL (80-95); MPV 8.6 fL (8.0-11.0); Monocytes % 3.7; Neutrophils % 78.9; Nucleated RBC 0 %; Platelet Count 511 10^3/uL (130-400); RBC 4.61 10^6/uL (4.36-5.78); RDW 11.9 % (11.8-14.1); RDW-SD 39.2 fL; WBC 4.32 10^3/uL (4.4-10.8)
[2020-12-16 07:16] LABS: ALT 81 U/L (16-63); AST 136 U/L (15-37); Albumin 2.2 g/dL (3.4-5.0); Alkaline Phosphatase 49 U/L (46-116); Anion Gap 4.4 mmol/L (3-11); BUN 23 mg/dL (7-18); Bilirubin, Total 0.6 mg/dL (0.2-1.0); C-Reactive Protein 3.03 mg/dL (0.0-0.3); CO2 30.6 mmol/L (21.0-32.0); CREATININE 0.8 mg/dL (0.70-1.30); Calcium 8.7 mg/dL (8.5-10.1); Chloride 103 mmol/L (98-107); Glucose 107 mg/dL (74-106); Potassium 4.5 mmol/L (3.5-5.1); Sodium 138 mmol/L (136-145); Total Protein 7.2 g/dL (6.4-8.2)
[2020-12-16 07:40] LABS: D-Dimer 1125 ng/mlFEU (<500)
[2020-12-16 08:05] LABS: Ferritin > 2000 ng/mL (26-388)
--- NOTE | 2020-12-16 08:45 | DI.VRAD_ITS ---
PROCEDURE INFORMATION: Exam: XR Chest Exam date and time: 12/16/2020 7:39 AM Age: 40 years old Clinical indication: Condition or disease; Other: Ptx TECHNIQUE: Imaging protocol: XR of the chest. Views: 1 view. COMPARISON: CR XR PORTABLE CHEST AP 12/15/2020 10:16 PM FINDINGS: Tubes, catheters and devices: Stable positioning of pigtail left chest tube. No significant residual pneumothorax. Lungs: Multifocal airspace disease with interstitial prominence in the right lung is unchanged. Pleural spaces: See Tubes, catheters and devices finding. Heart/Mediastinum: Cardiomediastinal silhouette is unremarkable. Diaphragm: Mild elevation of the right hemidiaphragm. Bones/joints: Multilevel spondylosis. IMPRESSION: 1. Stable positioning of pigtail left chest tube. No significant residual pneumothorax. 2. Multifocal airspace disease with interstitial prominence in the right lung is unchanged. Dictated and Authenticated by: Charly Deras MD. Ordering:ANA Woody MD
[2020-12-16] MEDS: Midodrine 2.5 MG TAB 5 MG PO ×3 (09:03→20:35)
[2020-12-16] MEDS: Polyethylene Glycol 3350 17 GM PACKET PO (09:03)
[2020-12-16] MEDS: Docusate Sodium 100 MG CAP PO ×2 (09:09→20:36)
[2020-12-16] MEDS: Lidocaine 5% Patch 1 PATCH TP (09:09)
[2020-12-16] MEDS: Protein Nutritional Supplement 16 GM 1 OUNCE PACKET PO ×3 (09:09→20:35)
[2020-12-16] MEDS: Famotidine 20 MG TAB PO (09:09)
[2020-12-16] MEDS: Zinc Sulfate 220 MG TAB PO (09:09)
[2020-12-16] MEDS: Benzonatate 100 MG CAP PO ×3 (09:09→20:38)
[2020-12-16] MEDS: Cholecalciferol (Vitamin D3) 1,000 UNIT TAB 2000 UNITS PO (09:09)
[2020-12-16] MEDS: Doxycycline Hyclate 100 MG CAP PO ×2 (09:10→20:38)
[2020-12-16] MEDS: Enoxaparin 30 MG/0.3 ML SYR SC ×2 (09:10→20:35)
[2020-12-16] MEDS: Potassium Chloride 20 MEQ TABCR PO ×2 (09:10→20:35)
[2020-12-16] MEDS: Dexamethasone 10 MG/ML VIAL 6 MG IVP (09:10)
[2020-12-16] MEDS: Bisacodyl 5 MG TABEC PO (09:10)
--- NOTE | 2020-12-16 12:08 | PDOC.CMPRO ---
- If Service Date Differs Date of service: 12/16/20 Time of Service: 12:08 Care Management Progress Note S/O: Kosta continues to be closely monitored and treated for Covid he remains on high/flow O2 at this time and on precautions. CM previously provided Kosta with a medicaid application and application for [facility] financial assistance. Anticipate possible [facility] referral as well. CM will continue to follow. A: 40 year old male admitted to [facility] on 12/09/20 for Covid-19 Pneumonia P: Anticipate Kosta will be discharged home via private vehicle when medically cleared by . He will continue to be evaluated for home O2 and VNA needs upon discharge. Financial applications provided, [facility] referral being considered. CM will continue to support discharge planning needs.
[2020-12-16] MEDS: Metoclopramide 10 MG/2 ML VIAL IVP (12:10)
--- NOTE | 2020-12-16 12:48 | PGE_ITS ---
Date of Service Date of service: 12/16/20 Time of Service: 12:48 Assessment and Plan Assessment and plan (1) COVID-19: Status: Acute Assessment and plan: Continue Decadron, Remdesivir, baricitinib along with zinc and vitamin C and vitamin D. Encourage patient to practice proning to improve VQ mismatch. Continue noninvasive positive pressure ventilation and/or high flow nasal cannula. Maintain chest tube while he is on NIPPV. Patient continues to require ICU level care due to his pneumothorax and hypoxemia requiring NIPPV. Critical care time 30 minutes (2) Pneumothorax, left: Status: Acute Assessment and plan: Complication of COVID-19 pneumonia and requiring noninvasive positive pressure ventilation. Continue chest tube until he no longer needs NIPPV. (3) Orthostatic hypotension: Status: Acute Assessment and plan: Unclear what is led to his orthostatic hypotension. He does not appear to be dry. 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 I wonder if he was diagnosed with POTS syndrome. Patient is encouraged to eat and drink. We are avoiding IV fluids given his COVID-19 status. Patient has been put on midodrine and his Lopressor has been resumed at low dose. (4) Syncope: Status: Resolved Assessment and plan: No further syncopal spells although he still exhibits orthostatic hypotension. See above for treatment Qualifiers: Syncope type: unspecified Qualified Code(s): R55 - Syncope and collapse (5) Closed head injury: Status: Acute Assessment and plan: CT head 3 days ago was negative. continue to monitor. No sequelae. Qualifiers: Encounter type: initial encounter Qualified Code(s): S09.90XA - Unspecified injury of head, initial encounter (6) Rhabdomyolysis: Status: Resolved Assessment and plan: Resolved. Qualifiers: Rhabdomyolysis type: non-traumatic Qualified Code(s): M62.82 - Rha bdomyolysis (7) Elevated transaminase level: Status: Acute Assessment and plan: probably d/t covid-19. Transaminase levels are stable. Hepatitis and HIV studies were checked and were all negative. (8) DVT prophylaxis: Status: Acute Assessment and plan: No evidence for DVT or pulmonary embolism. Continue low-dose enoxaparin for DVT prophylaxis. Subjective Subjective Interval history since last seen: Patient had recurrent nausea and emesis of clear fluid this morning after eating breakfast and returning on his side. Sounds like patient has problems with GERD. Patient has only tolerated CPAP 8 cm and 45% for maybe an hour at a time otherwise he is requiring high flow nasal cannula at 35 L/min and 49% FiO2. Inflammatory markers remain elevated including ferritin greater than 2000, CRP of 3, D-dimer of 1100. Repeat chest x-ray today shows his left chest tube in unchanged position. He has a tiny pneumothorax still visible. But this appears to be improved compared to prior exams. He continues to have bilateral infiltrates that are unchanged. Exam Narrative Exam Narrative: Middle-age male sitting up in bed getting ready to have his lunch. He is currently wearing CPAP as nurses transitioning him over to high flow nasal cannula. HEENT is unremarkable Lungs with bilateral basilar dry rales no rhonchi or wheezing Heart is tachycardic but regular Abdomen soft nontender nondistended without guarding with active bowel sounds Extremities without peripheral cyanosis or edema no calf tenderness or swelling. Objective Last Vital Signs Temp 37.5 C 12/16/20 03:50 Pulse 105 H 12/16/20 12:00 Resp 22 12/16/20 12:01 BP 96/58 L 12/16/20 12:00 Pulse Ox 92 12/16/20 12:01 Laboratory Results - last 24 hr 12/16/20 12/16/20 12/16/20 06:45 06:45 06:45 WBC 4.32 L D RBC 4.61 Hgb 13.9 Hct 41.6 MCV 90.2 MCH 30.2 MCHC 33.4 RDW 11.9 Plt Count 511 H MPV 8.6 Immature Gran % 0.5 Neutrophils % 78.9 Lymphocytes % 15.3 Monocytes % 3.7 Eosinophils % 1.4 Basophils % 0.2 Nucleated RBC % 0 Absolute Neutrophils 3.41 Absolute Lymphocytes 0.66 L Absolute Monocytes 0.16 Absolute Eosinophils 0.06 Absolute Basophils 0.01 D-Dimer 1125 H Sodium 138 Potassium 4.5 Chloride 103 Carbon Dioxide 30.6 Anion Gap 4.4 BUN 23 H Creatinine 0.8 Estimated GFR/1.73 m2 >= 60.00 Glucose 107 H Calcium 8.7 Ferritin > 2000 H Total Bilirubin 0.6 AST 136 H ALT 81 H Alkaline Phosphatase 49 C-Reactive Protein 3.03 H Total Protein 7.2 Albumin 2.2 L
--- NOTE | 2020-12-16 13:17 | W.NUTRFU ---
Date of service: 12/16/20 Time of Service: 13:18 Nutrition Note NOTE: Calorie count summary Mr. Song has taken in 1450 calories and 37 grams of protein between dinner last night and breakfast today. These calories and protein meet 58% and 34% of his needs respectively. Nursing notes on his calorie count that he does like the Ensure Plus so we will continue with those tid. Overall, his intake is improving. His weight has also been entirely stable since admission. Will continue to monitor calorie counts through the weekend. Time Spent in Nutritional Counseling and Treatment: 0
--- NOTE | 2020-12-16 13:43 | PGE_ITS ---
Date of Service Date of service: 12/16/20 Time of Service: 13:44 Assessment and Plan Assessment and plan (1) Costochondritis: Status: Acute (2) At high risk for inadequate nutritional intake: Status: Deleted (3) Obstipation: Status: Deleted (4) Pneumothorax, left: Status: Acute (5) Protein-calorie malnutrition, mild: Status: Acute (6) Persistent air leak: Status: Acute (7) Persistent vomiting in adult patient: Status: Acute (8) Persistent cough: Status: Acute (9) COVID-19: Status: Acute Subjective Subjective Interval history since last seen: -Patient was having severe rib pain last night with coughing. His lung is up and there is still less than 5% pneumothorax on CXR today. There was some question of concern about a fracture on rib fx on the Xray done last pm. I repeat x-ray read today- and that is not visible. He most likely has some costochondritis-which is for the etiology of pain. He is still having violent coughing episodes today. -With his violent coughing, he still has a small air leak. He is still on suction at this point. He is still at very high risk for requiring mechanical ventilation and we will leave the tube on suction. Review of today's chest x- ray does show persistent 5% pneumothorax. However the left lower lobe infiltrates do seem to be improved. He is not had any significant drainage from the tube. -Covid pneumonia remains unchanged. Continue current medical management per pulmonary and hospitalist. -Vomiting. He was switched over to a PPI. He is on Reglan. I will obtain a abdominal x-ray tomorrow. Patient does not have the strength/energy/oxygenation to get up and walk around. Last time he was up walking in his room vasovagal then fell and hit his head. Both the Barictinib adn remdesivir can cause nausea and vomiting. Give the Reglan 30 minutes prior to giving the oral Barictinib -He remains at high risk for nutritional deficits. Continue protein supplementation. Nutrition note appreciated. Continue calorie count. Encou rage patient to take in oral nutrition. If he cannot take insufficient calories then we may be forced to start TPN on him. -Did have a bowel movement today. -Continue supportive cares 30 minutes spent on patient's care today reviewing case with RN pharmacy and with hospitalist. Objective Last Vital Signs Temp 37.5 C 12/16/20 03:50 Pulse 105 H 12/16/20 12:00 Resp 22 12/16/20 12:01 BP 96/58 L 12/16/20 12:00 Pulse Ox 92 12/16/20 12:01 Laboratory Results - last 24 hr 12/16/20 12/16/20 12/16/20 06:45 06:45 06:45 WBC 4.32 L D RBC 4.61 Hgb 13.9 Hct 41.6 MCV 90.2 MCH 30.2 MCHC 33.4 RDW 11.9 Plt Count 511 H MPV 8.6 Immature Gran % 0.5 Neutrophils % 78.9 Lymphocytes % 15.3 Monocytes % 3.7 Eosinophils % 1.4 Basophils % 0.2 Nucleated RBC % 0 Absolute Neutrophils 3.41 Absolute Lymphocytes 0.66 L Absolute Monocytes 0.16 Absolute Eosinophils 0.06 Absolute Basophils 0.01 D-Dimer 1125 H Sodium 138 Potassium 4.5 Chloride 103 Carbon Dioxide 30.6 Anion Gap 4.4 BUN 23 H Creatinine 0.8 Estimated GFR/1.73 m2 >= 60.00 Glucose 107 H Calcium 8.7 Ferritin > 2000 H Total Bilirubin 0.6 AST 136 H ALT 81 H Alkaline Phosphatase 49 C-Reactive Protein 3.03 H Total Protein 7.2 Albumin 2.2 L
[2020-12-16] MEDS: Pantoprazole 40 MG TABCR PO (14:01)
[2020-12-16] MEDS: Metoprolol 12.5 MG TAB 6.25 MG PO ×2 (14:02→20:36)
[2020-12-16] MEDS: clonazePAM 0.5 MG TAB 0.25 MG PO (14:48)
[2020-12-16] MEDS: Atorvastatin 40 MG TAB PO (20:36)
[2020-12-16] MEDS: Melatonin 3 MG TAB 6 MG PO (20:36)
[2020-12-16] MEDS: Senna TAB 1 TAB PO (20:36)
[2020-12-16] MEDS: Ondansetron 4 MG/2 ML VIAL IVP (21:15)
[2020-12-16] MEDS: Patch Removal 1 EACH TP (22:15)
[2020-12-17] VITALS (22 sets, daily range): BP systolic 94–119; BP diastolic 49–78; PULSE 65–118; RESP 13–31; TEMP 34–36.6; O2SAT 87–98
[2020-12-17] MEDS: clonazePAM 0.5 MG TAB 0.25 MG PO (00:31)
[2020-12-17] MEDS: Acetaminophen 500 MG TAB 1000 MG PO ×3 (05:35→21:29)
[2020-12-17] MEDS: MORPHine 2 MG/ML SYR IVP (05:35)
[2020-12-17 07:07] LABS: Abs Immature Grans 0.03 10^3/uL (0.0-0.06); Absolute Eosinophil Count 0.19 10^3/uL (0.0-0.7); Absolute Lymphocyte Count 0.79 10^3/uL (1.2-3.4); Absolute Monocyte Count 0.21 10^3/uL (0.1-0.8); Absolute Neutrophil Count 4.06 10^3/uL (1.2-6.7); Eosinophils % 3.6; HCT 41.9 % (40.0-50.0); Immature Grans % 0.6; MCHC 33.4 % (32.0-36.0); MCV 89.7 fL (80-95); Neutrophils % 76.8; Nucleated RBC 0 %; Platelet Count 565 10^3/uL (130-400); RBC 4.67 10^6/uL (4.36-5.78); RDW 11.9 % (11.8-14.1); RDW-SD 38.7 fL; WBC 5.28 10^3/uL (4.4-10.8)
[2020-12-17 07:26] LABS: ALT 79 U/L (16-63); AST 98 U/L (15-37); Albumin 2.3 g/dL (3.4-5.0); Alkaline Phosphatase 54 U/L (46-116); Anion Gap 6.3 mmol/L (3-11); BUN 25 mg/dL (7-18); Bilirubin, Total 0.7 mg/dL (0.2-1.0); C-Reactive Protein 1.96 mg/dL (0.0-0.3); CO2 28.7 mmol/L (21.0-32.0); CREATININE 0.8 mg/dL (0.70-1.30); Chloride 102 mmol/L (98-107); Glucose 103 mg/dL (74-106); Potassium 4.5 mmol/L (3.5-5.1); Sodium 137 mmol/L (136-145); Total Protein 7.1 g/dL (6.4-8.2)
[2020-12-17 08:30] LABS: D-Dimer 954 ng/mlFEU (<500)
--- NOTE | 2020-12-17 08:30 | DI.RAD_ITS ---
Exam(s) XR PORTABLE CHEST AP EXAM: XR PORTABLE CHEST AP CLINICAL HISTORY: ptx TECHNIQUE: COMPARISON: CR,XR XR PORTABLE CHEST AP from 12/15/2020 CR,XR XR PORTABLE CHEST AP from 12/16/2020 FINDINGS: Portable AP chest at 1446 hours. Mild elevation of the diaphragm again noted on the right. Bilatera l intrapulmonary infiltrates again noted but slightly less prominent than on the prior examination. Left thoracotomy tube again noted in position, small persistent left apical pneumothorax again noted, slightly more easily seen than on prior examination of December 16 but probably unchanged from exam ination of December 15. IMPRESSION: RADIATION DOSE DELIVERED: Total DLP
[2020-12-17 08:37] LABS: Ferritin > 2000 ng/mL (26-388)
--- NOTE | 2020-12-17 08:52 | PGE_ITS ---
Date of Service Date of service: 12/17/20 Time of Service: 13:56 Assessment and Plan Assessment and plan (1) Acute respiratory failure with hypoxia: Status: Acute Assessment and plan: Due to COVID-19 and pneumothorax. Continue treatment of COVID-19 with remdesivir, dexamethasone, baricitinib. General surgery is following for chest tube management at this time. Encourse IS/acapella/proning/CPAP/high flow. Discussed with general surgery - will keep in ICU until chest tube is out. (2) COVID-19: Status: Acute Assessment and plan: As above (3) Pneumothorax, left: Status: Acute Assessment and plan: Complication of COVID-19/CPAP. Defer to general surgery. Still has an air leak today. When no air leak, we are planning on water seal with monitoring for reexpansion of PTX while on CPAP tonight. (4) Syncope: Status: Resolved Assessment and plan: In setting of COVID-19 and unclear etiology of baseline tachycardia (POTS suspected). Continue cardiac monitoring. On midodrine. Qualifiers: Syncope type: unspecified Qualified Code(s): R55 - Syncope and collapse (5) Orthostatic hypotension: Status: Acute Assessment and plan: Agree that POTS vs orthostasis of COVID-19 are both possibilities. No longer symptomatic when changing position. On midodrine. (6) Closed head injury: Status: Acute Assessment and plan: CT head negative. Mental status intact. Qualifiers: Encounter type: initial encounter Qualified Code(s): S09.90XA - Unspecified injury of head, initial encounter (7) Rhabdomyolysis: Status: Resolved Assessment and plan: Resolved. Qualifiers: Rhabdomyolysis type: non-traumatic Qualified Code(s): M62.82 - Rhabdomyolysis (8) Elevated transaminase level: Status: Acute Assessment and plan: In setting of COVID-19 and rhabdomyolysis. Continue to follow (9) DVT prophylaxis: Status: Acute Assessment and plan: Continue SC lovenox (10) Discharge planning issues: Status: Acute Assessment and plan: Full code Continues to require ICU. Total Critical Care [address] Dorado Subjective Subjective Interval history since last seen: Mr Song states that he is feeling better today. Endorses cough productive of clear sputum. Not feeling short of breath while sitting up at the side of the bed on high flow. Endorses n/v. NO diarrhea since 2 days ago. Refuses to prone, slept on R. High flow 45L 71% overnight, dropped to 60% FiO2 t his am. Back on CPAP as of 5:30 am, 40% and pressure of 8, pulse ox is not on. HR 123 SR. L chest tube - 8 ml serosanguenous fluid. Voided 900 cc over 12 hrs. Vomited 50 cc of apple juice. Reglan given. Due for zofran/oxycodone. Coughing - pain with the cough. Exam Narrative Exam Narrative: General: Pleasant middle-aged male who is sitting at the side of the bed with Chest tube on the left, A&ox3, no dyspnea/tachypnea/cyanosis observed HEENT: EOMI, MMM Heart: RRR, no m/r/g, tachycardic Lungs: Diminished breath sounds on the Left base. CTA on R Abdomen: soft, nontender, nondsitended Extremities: no edema BLE's Objective Last Vital Signs Temp 35.3 C L 12/17/20 00:05 Pulse 76 12/17/20 00:01 Resp 22 12/17/20 06:00 BP 104/59 L 12/17/20 00:01 Pulse Ox 97 12/17/20 06:00 Laboratory Results - last 24 hr 12/17/20 12/17/20 12/17/20 06:48 06:48 06:48 WBC 5.28 RBC 4.67 Hgb 14.0 Hct 41.9 MCV 89.7 MCH 30.0 MCHC 33.4 RDW 11.9 Plt Count 565 H MPV 9.0 Immature Gran % 0.6 Neutrophils % 76.8 Lymphocytes % 15.0 Monocytes % 4.0 Eosinophils % 3.6 Basophils % 0.0 Nucleated RBC % 0 Absolute Neutrophils 4.06 Absolute Lymphocytes 0.79 L Absolute Monocytes 0.21 Absolute Eosinophils 0.19 Absolute Basophils 0.00 D-Dimer 954 H Sodium 137 Potassium 4.5 Chloride 102 Carbon Dioxide 28.7 Anion Gap 6.3 BUN 25 H Creatinine 0.8 Estimated GFR/1.73 m2 >= 60.00 Glucose 103 Calcium 9.0 Ferritin > 2000 H Total Bilirubin 0.7 AST 98 H ALT 79 H Alkaline Phosphatase 54 C-Reactive Protein 1.96 H Total Protein 7.1 Albumin 2.3 L
[2020-12-17] MEDS: Lidocaine 5% Patch 1 PATCH TP (09:11)
[2020-12-17] MEDS: Protein Nutritional Supplement 16 GM 1 OUNCE PACKET PO ×3 (09:12→21:28)
[2020-12-17] MEDS: Enoxaparin 30 MG/0.3 ML SYR SC ×2 (09:12→21:28)
[2020-12-17] MEDS: Polyethylene Glycol 3350 17 GM PACKET PO (09:12)
[2020-12-17] MEDS: Normal Saline Flush 10 ML SYR IVP ×2 (09:12→14:33)
[2020-12-17] MEDS: Dexamethasone 10 MG/ML VIAL 6 MG IVP (09:13)
[2020-12-17] MEDS: Ondansetron 4 MG/2 ML VIAL IVP ×2 (09:13→14:33)
[2020-12-17] MEDS: Metoclopramide 10 MG/2 ML VIAL IVP (09:15)
[2020-12-17] MEDS: Pantoprazole 40 MG TABCR PO (09:16)
[2020-12-17] MEDS: Potassium Chloride 20 MEQ TABCR PO ×2 (09:16→21:29)
[2020-12-17] MEDS: Docusate Sodium 100 MG CAP PO ×2 (09:16→21:29)
[2020-12-17] MEDS: Bisacodyl 5 MG TABEC PO (09:16)
[2020-12-17] MEDS: Metoprolol 12.5 MG TAB 6.25 MG PO ×3 (09:16→21:28)
[2020-12-17] MEDS: Zinc Sulfate 220 MG TAB PO (09:17)
[2020-12-17] MEDS: oxyCODONE 5 MG TAB PO (09:17)
[2020-12-17] MEDS: Midodrine 2.5 MG TAB 5 MG PO ×3 (09:17→21:29)
[2020-12-17] MEDS: Doxycycline Hyclate 100 MG CAP PO (09:17)
[2020-12-17] MEDS: Cholecalciferol (Vitamin D3) 1,000 UNIT TAB 2000 UNITS PO (09:18)
[2020-12-17] MEDS: Benzonatate 100 MG CAP 200 MG PO ×3 (09:20→21:29)
[2020-12-17] MEDS: guaiFENesin 600 MG TABCR PO ×2 (09:20→21:49)
--- NOTE | 2020-12-17 16:27 | W.PM.PROGNOT ---
Date of Service Date of service: 12/17/20 Time of Service: 11:27 Assessment and Plan Assessment and plan (1) Pneumothorax, left: Status: Acute Assessment and plan: -Maintain chest tube to wall suction due to persistent air leak -Consider repeat CT if air leak does not improve -Supplemental O2, incentive spirometer, chest PT, cough and deep breathing exercises -Continue daily chest x-rays -Lovenox for DVT ppx (2) Persistent air leak: Status: Acute (3) Acute respiratory failure with hypoxia: Status: Acute (4) Persistent cough: Status: Acute (5) Protein-calorie malnutrition, mild: Status: Acute Assessment and plan: -Nausea improved today -Encourage high protein PO intake -Limit narcotics as these may contribute to nausea -GI ppx on protonix (6) Orthostatic hypotension: Status: Acute (7) Syncope: Status: Resolved Qualifiers: Syncope type: unspecified Qualified Code(s): R55 - Syncope and collapse (8) Closed head injury: Status: Acute Qualifiers: Encounter type: initial encounter Qualified Code(s): S09.90XA - Unspecified injury of head, initial encounter Subjective Subjective Patient reports: no new complaints and feels better Exam Const General: cooperative, comfortable and no acute distress Chest Chest: tenderness (left chest tube) Resp Effort & Inspection: able to speak in complete sentences, no audible wheezes, cough, no grunting, labored (mildly ), no respiratory distress, no use of accessory muscles and other (persistent air leak in chest tube) Cardio Rate: tachycardic Rhythm: regular rhythm Skin General skin exam: other (left chest tube in place with dressing intact) Objective Last Vital Signs Temp 96.1 F L 12/17/20 15:00 Pulse 114 H 12/17/20 12:00 Resp 21 12/17/20 15:43 BP 109/78 12/17/20 12:00 Pulse Ox 92 12/17/20 15:43 Laboratory Results - last 24 hr 12/17/20 12/17/20 12/17/20 06:48 06:48 06:48 WBC 5.28 RBC 4.67 Hgb 14.0 Hct 41.9 MCV 89.7 MCH 30.0 MCHC 33.4 RDW 11.9 Plt Count 565 H MPV 9.0 Immature Gran % 0.6 Neutrophils % 76.8 Lymphocytes % 15.0 Monocytes % 4.0 Eosinophils % 3.6 Basophils % 0.0 Nucleated RBC % 0 Absolute Neutrophils 4.06 Absolute Lymphocytes 0.79 L Absolute Monocytes 0.21 Absolute Eosinophils 0.19 Absolute Basophils 0.00 D-Dimer 954 H Sodium 137 Potassium 4.5 Chloride 102 Carbon Dioxide 28.7 Anion Gap 6.3 BUN 25 H Creatinine 0.8 Estimated GFR/1.73 m2 >= 60.00 Glucose 103 Calcium 9.0 Ferritin > 2000 H Total Bilirubin 0.7 AST 98 H ALT 79 H Alkaline Phosphatase 54 C-Reactive Protein 1.96 H Total Protein 7.1 Albumin 2.3 L
[2020-12-17] MEDS: Senna TAB 1 TAB PO (21:28)
[2020-12-17] MEDS: Atorvastatin 40 MG TAB PO (21:28)
[2020-12-17] MEDS: Melatonin 3 MG TAB 6 MG PO (21:29)
[2020-12-17] MEDS: Patch Removal 1 EACH TP (22:29)
[2020-12-18] VITALS (56 sets, daily range): BP systolic 73–121; BP diastolic 48–74; PULSE 57–129; RESP 14–29; TEMP 34–36.6; O2SAT 86–95
[2020-12-18] MEDS: Acetaminophen 500 MG TAB 1000 MG PO ×2 (06:17→15:13)
[2020-12-18 07:06] LABS: Abs Immature Grans 0.06 10^3/uL (0.0-0.06); Absolute Basophil Count 0.01 10^3/uL (0.0-0.2); Absolute Eosinophil Count 0.35 10^3/uL (0.0-0.7); Absolute Monocyte Count 0.21 10^3/uL (0.1-0.8); Absolute Neutrophil Count 5.72 10^3/uL (1.2-6.7); Basophils % 0.1; Eosinophils % 4.6; HCT 40.5 % (40.0-50.0); HGB 13.7 g/dL (13.5-17.5); Immature Grans % 0.8; MCH 30.1 pg (27.0-33.0); MCHC 33.8 % (32.0-36.0); MPV 9.4 fL (8.0-11.0); Monocytes % 2.7; Neutrophils % 74.8; Nucleated RBC 0 %; Platelet Count 566 10^3/uL (130-400); RBC 4.55 10^6/uL (4.36-5.78); RDW 11.8 % (11.8-14.1); RDW-SD 37.9 fL; WBC 7.65 10^3/uL (4.4-10.8)
[2020-12-18 07:35] LABS: ALT 73 U/L (16-63); AST 84 U/L (15-37); Albumin 2.3 g/dL (3.4-5.0); Alkaline Phosphatase 54 U/L (46-116); Anion Gap 7.2 mmol/L (3-11); BUN 20 mg/dL (7-18); Bilirubin, Direct 0.2 mg/dL (0.0-0.2); Bilirubin, Total 0.6 mg/dL (0.2-1.0); C-Reactive Protein 1.15 mg/dL (0.0-0.3); CO2 27.8 mmol/L (21.0-32.0); CREATININE 0.9 mg/dL (0.70-1.30); Calcium 9.1 mg/dL (8.5-10.1); Chloride 102 mmol/L (98-107); Glucose 84 mg/dL (74-106); Magnesium 2.3 mg/dL (1.8-2.4); Potassium 4.2 mmol/L (3.5-5.1); Sodium 137 mmol/L (136-145); Total Protein 6.8 g/dL (6.4-8.2)
[2020-12-18 08:13] LABS: D-Dimer 998 ng/mlFEU (<500)
--- NOTE | 2020-12-18 08:22 | W.PM.PROGNOT ---
Date of Service Date of service: 12/18/20 Time of Service: 14:03 Assessment and Plan Assessment and plan (1) Acute respiratory failure with hypoxia: Status: Acute Assessment and plan: Due to COVID-19 and pneumothorax. Improving. Transitioned to [place]. Continue treatment of COVID-19 with remdesivir, dexamethasone, baricitinib. General surgery is following for chest tube management at this time. Encourse IS/acapella/proning. The patient will tell us when he feels he is ready to have the chest tube placed on water seal tonight, he is nervous about it. Discussed with general surgery - will keep in ICU until chest tube is out. (2) COVID-19: Status: Acute Assessment and plan: As above (3) Pneumothorax, left: Status: Acute Assessment and plan: Complication of COVID-19/CPAP. Does still have a small air leak, but we will see how the patient does without wall suction today. Discussed with general surgery. Ok to use CPAP, per general surgery. (4) Syncope: Status: Resolved Assessment and plan: In setting of COVID-19 and unclear etiology of baseline tachycardia (POTS suspected). Continue cardiac monitoring. On midodrine. Qualifiers: Syncope type: unspecified Qualified Code(s): R55 - Syncope and collapse (5) Orthostatic hypotension: Status: Acute Assessment and plan: Agree that POTS vs orthostasis of COVID-19 are both possibilities. No longer symptomatic when changing position, though BPs do appear to drop. On midodrine but also on metoprolol. Consider increasing midodrine. (6) Closed head injury: Status: Acute Assessment and plan: CT head negative. Mental status intact. Qualifiers: Encounter type: initial encounter Qualified Code(s): S09.90XA - Unspecified injury of head, initial encounter (7) Rhabdomyolysis: Status: Resolved Assessment and plan: Resolved. Qualifiers: Rhabdomyolysis type: non-traumatic Qualified Code(s): M62.82 - Rhabdomyolysis (8) Elevated transaminase level: Status: Acute Assessment and plan: In setting of COVID-19 and rhabdomyolysis. Continue to follow (9) DVT prophylaxis: Status: Acute Assessment and plan: Continue SC lovenox (10) Discharge planning issues: Status: Acute Assessment and plan: Full code Continues to require ICU. Total Critical Care [address] Dorado Subjective Subjective Interval history since last seen: Mr Song was transitioned to 5L NC, tolerating well. States he does not feel any more short of breath. Denies dizziness, chest pain except for the chest tube insertion site, denies shortness of breath, productive cough. Was slightly nauseated when ate, but is no longer. No vomiting today. Last night was on high flow 45 L 45%. No CPAP last night. Low BPs overnight - 100/63 this am. Exam Narrative Exam Narrative: General: Pleasant middle-aged male who is sitting up in a chair, A&Ox3, on 5L of O2 by NC, no dyspnea/tachypnea/cyanosis, speaking in complete sentences. HEENT: EOMI, MMM Heart: RRR, no m/r/g, tachycardic Lungs: diffuse quiet rales B; L-sided chest tube attached to suction. Abdomen: soft, nontender, nondsitended Extremities: no edema BLE's Objective Last Vital Signs Temp 36.3 C L 12/18/20 03:30 Pulse 111 H 12/18/20 06:16 Resp 20 12/18/20 06:16 BP 94/61 L 12/18/20 06:16 Pulse Ox 87 L 12/18/20 06:16 Laboratory Results - last 24 hr 12/18/20 12/18/20 12/18/20 06:30 06:30 06:30 WBC 7.65 D RBC 4.55 Hgb 13.7 Hct 40.5 MCV 89.0 MCH 30.1 MCHC 33.8 RDW 11.8 Plt Count 566 H MPV 9.4 Immature Gran % 0.8 Neutrophils % 74.8 Lymphocytes % 17.0 Monocytes % 2.7 Eosinophils % 4.6 Basophils % 0.1 Nucleated RBC % 0 Absolute Neutrophils 5.72 Absolute Lymphocytes 1.30 Absolute Monocytes 0.21 Absolute Eosinophils 0.35 Absolute Basophils 0.01 D-Dimer 998 H Sodium 137 Potassium 4.2 Chloride 102 Carbon Dioxide 27.8 Anion Gap 7.2 BUN 20 H Creatinine 0.9 Estimated GFR/1.73 m2 >= 60.00 Glucose 84 Calcium 9.1 Magnesium 2.3 Total Bilirubin 0.6 Conjugated Bilirubin 0.2 AST 84 H ALT 73 H Alkaline Phosphatase 54 C-Reactive Protein 1.15 H Total Protein 6.8 Albumin 2.3 L
--- NOTE | 2020-12-18 08:30 | DI.RAD_ITS ---
Exam(s) XR PORTABLE CHEST AP EXAM: XR PORTABLE CHEST AP CLINICAL HISTORY: ptx TECHNIQUE: COMPARISON: CR XR PORTABLE CHEST AP from 12/17/2020 FINDINGS: Portable AP chest at 0900 hours. In comparison with yesterday's examination, the left thoracotomy tube is again noted in appearance wi th no interval change in size of the small left apical pneumothorax since yesterday's examination. B ilateral diffuse intrapulmonary infiltrates are again noted, predominantly peripheral, no gross inter margareth change. IMPRESSION: RADIATION DOSE DELIVERED: Total DLP
[2020-12-18 08:35] LABS: Ferritin > 2000 ng/mL (26-388)
[2020-12-18] MEDS: Enoxaparin 30 MG/0.3 ML SYR SC ×2 (09:31→19:11)
[2020-12-18] MEDS: Polyethylene Glycol 3350 17 GM PACKET PO (09:32)
[2020-12-18] MEDS: Dexamethasone 10 MG/ML VIAL 6 MG IVP (09:32)
[2020-12-18] MEDS: Metoprolol 12.5 MG TAB 6.25 MG PO ×3 (09:32→21:48)
[2020-12-18] MEDS: Lidocaine 5% Patch 1 PATCH TP (09:32)
[2020-12-18] MEDS: Protein Nutritional Supplement 16 GM 1 OUNCE PACKET PO ×2 (09:32→15:13)
[2020-12-18] MEDS: Metoclopramide 10 MG/2 ML VIAL IVP (09:32)
[2020-12-18] MEDS: Pantoprazole 40 MG TABCR PO (09:33)
[2020-12-18] MEDS: Potassium Chloride 20 MEQ TABCR PO (09:33)
[2020-12-18] MEDS: Zinc Sulfate 220 MG TAB PO (09:33)
[2020-12-18] MEDS: Cholecalciferol (Vitamin D3) 1,000 UNIT TAB 2000 UNITS PO (09:33)
[2020-12-18] MEDS: Benzonatate 100 MG CAP 200 MG PO ×2 (09:33→15:14)
[2020-12-18] MEDS: Bisacodyl 5 MG TABEC PO (09:33)
[2020-12-18] MEDS: Docusate Sodium 100 MG CAP PO (09:35)
[2020-12-18] MEDS: Midodrine 2.5 MG TAB 5 MG PO (09:35)
[2020-12-18] MEDS: guaiFENesin 600 MG TABCR PO (09:35)
--- NOTE | 2020-12-18 09:37 | DI.VRAD_ITS ---
PROCEDURE INFORMATION: Exam: XR Chest Exam date and time: 12/18/2020 12:01 AM Age: 40 years old Clinical indication: Other: Ptx TECHNIQUE: Imaging protocol: XR of the chest. Views: 1 view. COMPARISON: CR XR PORTABLE CHEST AP 12/17/2020 2:35 PM The prior report is not available for correlation at the time of interpretation. FINDINGS: Lungs: Interstitial/airspace disease. Pleural spaces: Stable positioning of left pleural catheter with small residual left pneumothorax. Heart/Mediastinum: No cardiomegaly. Diaphragm: Asymmetric elevation of the right hemidiaphragm. Bones/joints: Unremarkable. Soft tissues: Left-sided subcutaneous emphysema. IMPRESSION: 1. Stable positioning of left pleural catheter with small residual left pneumothorax. 2. Interstitial/airspace disease. Dictated and Authenticated by: Mahendra Suresh MD. Ordering:ANA Woody MD
--- NOTE | 2020-12-18 11:03 | W.PM.PROGNOT ---
Date of Service Date of service: 12/18/20 Time of Service: 11:03 Assessment and Plan Assessment and plan (1) Pneumothorax, left: Status: Acute Assessment and plan: -OK to remove from suction, monitor for signs or symptoms of recurrent pneumothorax and return to suction -Improvement since yesterday, off of high flow and on nasal cannula -Consider repeat CT if air leak persists, has been improving -Supplemental O2, incentive spirometer, chest PT, cough and deep breathing exercises -Continue daily chest x-rays, tiny residual pneumothorax -Lovenox for DVT ppx (2) Persistent air leak: Status: Acute (3) Discharge planning issues: Status: Acute (4) Acute respiratory failure with hypoxia: Status: Acute (5) Costochondritis: Status: Acute (6) Syncope: Status: Resolved Qualifiers: Syncope type: unspecified Qualified Code(s): R55 - Syncope and collapse (7) COVID-19: Status: Acute (8) Protein-calorie malnutrition, mild: Status: Acute Assessment and plan: -Resolved nausea/vomiting -Encourage high protein PO intake -Limit narcotics as these may contribute to nausea -GI ppx on protonix Subjective Subjective Patient reports: no new complaints and feels better; denies nausea and vomiting Objective Last Vital Signs Temp 97.3 F L 12/18/20 03:30 Pulse 111 H 12/18/20 09:42 Resp 21 12/18/20 10:00 BP 100/63 12/18/20 09:42 Pulse Ox 93 12/18/20 10:00 Laboratory Results - last 24 hr 12/18/20 12/18/20 12/18/20 06:30 06:30 06:30 WBC 7.65 D RBC 4.55 Hgb 13.7 Hct 40.5 MCV 89.0 MCH 30.1 MCHC 33.8 RDW 11.8 Plt Count 566 H MPV 9.4 Immature Gran % 0.8 Neutrophils % 74.8 Lymphocytes % 17.0 Monocytes % 2.7 Eosinophils % 4.6 Basophils % 0.1 Nucleated RBC % 0 Absolute Neutrophils 5.72 Absolute Lymphocytes 1.30 Absolute Monocytes 0.21 Absolute Eosinophils 0.35 Absolute Basophils 0.01 D-Dimer 998 H Sodium 137 Potassium 4.2 Chloride 102 Carbon Dioxide 27.8 Anion Gap 7.2 BUN 20 H Creatinine 0.9 Estimated GFR/1.73 m2 >= 60.00 Glucose 84 Calcium 9.1 Magnesium 2.3 Ferritin > 2000 H Total Bilirubin 0.6 Conjugated Bilirubin 0.2 AST 84 H ALT 73 H Alkaline Phosphatase 54 C-Reactive Protein 1.15 H Total Protein 6.8 Albumin 2.3 L
[2020-12-18] MEDS: Midodrine 2.5 MG TAB 7.5 MG PO ×2 (15:15→21:48)
[2020-12-18] MEDS: Atorvastatin 40 MG TAB PO (19:12)
[2020-12-18] MEDS: Patch Removal 1 EACH TP (19:13)
[2020-12-18] MEDS: Normal Saline Flush 10 ML SYR IVP (19:27)
[2020-12-18] MEDS: Ondansetron 4 MG/2 ML VIAL IVP (19:27)
[2020-12-18] MEDS: Melatonin 3 MG TAB 6 MG PO (21:47)
[2020-12-19] VITALS (38 sets, daily range): BP systolic 94–125; BP diastolic 44–71; PULSE 62–116; RESP 14–25; TEMP 36.2–36.7; O2SAT 2–95
--- NOTE | 2020-12-19 | DI.CT_ITS ---
Exam(s) CT CHEST WO EXAM: CT CHEST WO CLINICAL HISTORY: concern for esophageal tear resulting in PTX. TECHNIQUE: Imaging protocol: Axial computed tomography images were obtained and coronal and sagittal reformatted images were created and reviewed. COMPARISON: CT CT CHEST PE CTA from 12/12/[address] CHEST PE CTA from 12/12/2020 CR,XR XR PORTABLE CHEST AP from 12/18/2020 CR,XR XR PORTABLE CHEST AP from 12/18/2020 FINDINGS: Tracheobronchial tree: Patent where visualized. Pulmonary parenchyma: There are bilateral predominantly ground-glass opacities in all 5 lobes which a re consistent with the patient's known history of COVID-19. The findings appear to have progressed s lightly since the prior CT scan from 12/12/2020. No architectural distortion. Mediastinum and Apryl: There has been a significant decrease in the mediastinal air since 12/12/2020. There is a single 2 mm focus of air adjacent to the esophagus at the level of the thoracic inlet. Th ere is also now subcutaneous emphysema along the left chest wall extending into the left neck. This is been present on chest x-ray subsequent to the 12/12/2020 CT scan of the chest. There is a small hi atal hernia. Thyroid gland: Unremarkable. Pleura: There is no pleural effusion. There is no right pneumothorax. There is a small residual lef t pneumothorax. There is a left chest tube in the anterolateral left hemithorax. Heart: The heart is not dilated. No coronary artery calcifications are seen. No pericardial effusion. Aorta: Thoracic aorta non-dilated. Upper abdomen: There is diverticulosis seen in the colon, but no evidence of acute diverticulitis. Lymph nodes: Within normal limits. Tubes, Catheters, and Lines: The left chest tube is in good position in the anterolateral aspect of t he left hemithorax. Soft tissues: There is right chest wall and right neck subcutaneous air. Bones:There is a mildly displaced fracture of the lateral aspect of the left 8th rib. IMPRESSION: 1. Bilateral pulmonary infiltrates consistent with the patient's known history of COVID-19. Slight p rogression of disease is noted since 12/12/2020. 2. Marked interval improvement of the mediastinal air since 12/12 21. Single focus of mediastinal ai r at the level of the thoracic inlet. 3. Small residual left pneumothorax. Chest tube is in stable position. 4. Stable mildly displaced 8th left rib fracture. 5. Persistent subcutaneous emphysema in the left chest and neck. 6. Results of this exam have been verbally communicated with provider.. RADIATION DOSE DELIVERED: 723.05mGy.cm Total DLP 723.05mGy.cm Total DLP DATA REPOSITORY: All CT scans at this facility are submitted to the National Radiology Data Registry (NRDR) Dose Index Registry (DIR) with the [employer] ([employer]). RADIATION OPTIMIZATION: All CT scans at this facility use at least one of these dose optimization te chniques: automated exposure control; mA and/or kV adjustment per patient size (includes targeted exa ms where dose is matched to clinical indication); or iterative reconstruction.
[2020-12-19 07:23] LABS: Abs Immature Grans 0.07 10^3/uL (0.0-0.06); Absolute Basophil Count 0.01 10^3/uL (0.0-0.2); Absolute Eosinophil Count 0.26 10^3/uL (0.0-0.7); Absolute Lymphocyte Count 1.21 10^3/uL (1.2-3.4); Absolute Monocyte Count 0.29 10^3/uL (0.1-0.8); Absolute Neutrophil Count 4.07 10^3/uL (1.2-6.7); Basophils % 0.2; Eosinophils % 4.4; HCT 37.6 % (40.0-50.0); HGB 12.6 g/dL (13.5-17.5); Immature Grans % 1.2; Lymphocytes % 20.5; MCH 30.4 pg (27.0-33.0); MCHC 33.5 % (32.0-36.0); MCV 90.8 fL (80-95); MPV 9.5 fL (8.0-11.0); Monocytes % 4.9; Neutrophils % 68.8; Nucleated RBC 0 %; Platelet Count 479 10^3/uL (130-400); RBC 4.14 10^6/uL (4.36-5.78); RDW 11.8 % (11.8-14.1); RDW-SD 39.4 fL; WBC 5.91 10^3/uL (4.4-10.8)
[2020-12-19 07:26] LABS: INR 1.1 (0.9-1.1); Prothrombin Time 10.6 sec (9.3-11.0)
[2020-12-19 07:32] LABS: Procalcitonin < 0.1 ng/mL
[2020-12-19 07:56] LABS: D-Dimer 855 ng/mlFEU (<500)
[2020-12-19 08:01] LABS: ALT 64 U/L (16-63); AST 54 U/L (15-37); Albumin 2.2 g/dL (3.4-5.0); Alkaline Phosphatase 52 U/L (46-116); Anion Gap 3.5 mmol/L (3-11); BUN 20 mg/dL (7-18); Bilirubin, Direct 0.2 mg/dL (0.0-0.2); Bilirubin, Total 0.5 mg/dL (0.2-1.0); CO2 31.5 mmol/L (21.0-32.0); CREATININE 0.7 mg/dL (0.70-1.30); Calcium 8.5 mg/dL (8.5-10.1); Chloride 103 mmol/L (98-107); Glucose 93 mg/dL (74-106); Magnesium 2.3 mg/dL (1.8-2.4); Potassium 4.8 mmol/L (3.5-5.1); Sodium 138 mmol/L (136-145); Total Protein 5.8 g/dL (6.4-8.2)
--- NOTE | 2020-12-19 08:30 | W.PM.PROGNOT ---
Date of Service Date of service: 12/19/20 Time of Service: 14:39 Assessment and Plan Assessment and plan (1) Acute respiratory failure with hypoxia: Status: Acute Assessment and plan: Due to COVID-19 and pneumothorax. Improving. Weaning O2. On 3L of O2 by NC. Continue treatment of COVID-19 with remdesivir, dexamethasone, baricitinib. General surgery is following for chest tube management at this time. Encourse IS, but will not use acapella or CPAP, per Dr Queen. Encourage proning. No evidence of esophageal tear to explain pneumomediastinum, and PTX is better on CT. May require surgical intervention for PTX. (2) COVID-19: Status: Acute Assessment and plan: As above (3) Pneumothorax, left: Status: Acute Assessment and plan: Complication of COVID-19/CPAP. We ruled out an esophageal tear with a CT. Does still have a small air leak. Unable to tolerate disconnect from suction yesterday. Discussed with general surgery and with pulmonology. May require an intervention. Await further recommendations. (4) Syncope: Status: Resolved Assessment and plan: In setting of COVID-19 and unclear etiology of baseline tachycardia (POTS suspected). Continue cardiac monitoring. On midodrine. Qualifiers: Syncope type: unspecified Qualified Code(s): R55 - Syncope and collapse (5) Orthostatic hypotension: Status: Acute Assessment and plan: Agree that POTS vs orthostasis of COVID-19 are both possibilities. No longer symptomatic when changing position, though BPs do appear to drop. On midodrine but also on metoprolol. Midodrine was increased yesterday. (6) Closed head injury: Status: Acute Assessment and plan: CT head negative. Mental status intact. Qualifiers: Encounter type: initial encounter Qualified Code(s): S09.90XA - Unspecified injury of head, initial encounter (7) Rhabdomyolysis: Status: Resolved Assessment and plan: Resolved. Qualifiers: Rhabdomyolysis type: non-traumatic Qualified Code(s): M62.82 - Rhabdomyolysis (8) Nausea & vomiting: Status: Acute Assessment and plan: While possibly due to COVID-19, canabinoid hyperemesis also needs to be considered. Will trial prn ativan for both nausea and anxiety. (9) Elevated transaminase level: Status: Acute Assessment and plan: In setting of COVID-19 and rhabdomyolysis. Continue to follow (10) DVT prophylaxis: Status: Acute Assessment and plan: Continue SC lovenox (11) Discharge planning issues: Status: Acute Assessment and plan: Full code Continues to require ICU. Total Critical Care [address] Queen and Jose Subjective Subjective Interval history since last seen: Denies dizziness, chest pain except at the chest tube site, denies SOB, denies n/v right now. Did have vomiting last night. Reports anxiety. Normally smoked marijuana to treat his anxiety. On 3L of O2 by NC. Exam Narrative Exam Narrative: General: Pleasant middle-aged male who is sitting up in bed, A&Ox3, on 3L of O2 by NC, no dyspnea/tachypnea/cyanosis, speaking in complete sentences, looks anxious HEENT: EOMI, MMM Heart: RRR, no m/r/g Lungs: Diminished breath sounds B bases, L-sided chest tube attached to suction. Abdomen: soft, nontender, nondsitended Extremities: no edema BLE's Objective Last Vital Signs Temp 36.4 C L 12/19/20 05:15 Pulse 66 12/19/20 04:01 Resp 14 12/19/20 06:00 BP 94/44 L 12/19/20 04:01 Pulse Ox 93 12/19/20 06:00 Laboratory Results - last 24 hr 12/18/20 12/19/20 12/19/20 06:30 06:00 06:00 WBC RBC Hgb Hct MCV MCH MCHC RDW Plt Count MPV Immature Gran % Neutrophils % Lymphocytes % Monocytes % Eosinophils % Basophils % Nucleated RBC % Absolute Neutrophils Absolute Lymphocytes Absolute Monocytes Absolute Eosinophils Absolute Basophils PT INR D-Dimer Sodium 138 Potassium 4.8 Chloride 103 Carbon Dioxide 31.5 Anion Gap 3.5 BUN 20 H Creatinine 0.7 Estimated GFR/1.73 m2 >= 60.00 Glucose 93 Calcium 8.5 Magnesium 2.3 Ferritin > 2000 H Total Bilirubin 0.5 Conjugated Bilirubin 0.2 AST 54 H ALT 64 H Alkaline Phosphatase 52 C-Reactive Protein 2.10 H Total Protein 5.8 L Albumin 2.2 L Procalcitonin < 0.1 12/19/20 12/19/20 06:00 06:00 WBC 5.91 RBC 4.14 L Hgb 12.6 L Hct 37.6 L MCV 90.8 MCH 30.4 MCHC 33.5 RDW 11.8 Plt Count 479 H MPV 9.5 Immature Gran % 1.2 Neutrophils % 68.8 Lymphocytes % 20.5 Monocytes % 4.9 Eosinophils % 4.4 Basophils % 0.2 Nucleated RBC % 0 Absolute Neutrophils 4.07 Absolute Lymphocytes 1.21 Absolute Monocytes 0.29 Absolute Eosinophils 0.26 Absolute Basophils 0.01 PT 10.6 INR 1.1 D-Dimer 855 H Sodium Potassium Chloride Carbon Dioxide Anion Gap BUN Creatinine Estimated GFR/1.73 m2 Glucose Calcium Magnesium Ferritin Total Bilirubin Conjugated Bilirubin AST ALT Alkaline Phosphatase C-Reactive Protein Total Protein Albumin Procalcitonin
--- NOTE | 2020-12-19 08:54 | PDOC.CMPRO ---
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 Per reports he is off hi/flow now and on nasal cannula 2L sating 93%. Anticipate [facility] will connect with Kosta prior to discharge as well. CM will continue to follow. A: 40 year old male admitted to [facility] on 12/09/20 for Covid-19 Pneumonia P: Anticipate Kosta will be discharged home via private vehicle when medically cleared by MD. He will continue to be evaluated for home O2 and VNA needs upon discharge. Financial applications provided, [facility] referral anticipated. CM will continue to support discharge planning needs.
[2020-12-19 09:20] LABS: Ferritin > 2000 ng/mL (26-388)
[2020-12-19] MEDS: Dexamethasone 10 MG/ML VIAL 6 MG IVP (10:53)
[2020-12-19] MEDS: Metoclopramide 10 MG/2 ML VIAL IVP (10:54)
[2020-12-19] MEDS: Lidocaine 5% Patch 1 PATCH TP (10:54)
[2020-12-19] MEDS: Protein Nutritional Supplement 16 GM 1 OUNCE PACKET PO ×3 (10:55→21:30)
[2020-12-19] MEDS: Metoprolol 12.5 MG TAB 6.25 MG PO ×3 (10:57→21:31)
[2020-12-19] MEDS: Polyethylene Glycol 3350 17 GM PACKET PO (10:57)
[2020-12-19] MEDS: Potassium Chloride 20 MEQ TABCR PO ×2 (10:58→21:30)
[2020-12-19] MEDS: Pantoprazole 40 MG TABCR PO (10:58)
[2020-12-19] MEDS: Midodrine 2.5 MG TAB 7.5 MG PO ×3 (10:59→21:30)
[2020-12-19] MEDS: Cholecalciferol (Vitamin D3) 1,000 UNIT TAB 2000 UNITS PO (10:59)
[2020-12-19] MEDS: Zinc Sulfate 220 MG TAB PO (11:00)
[2020-12-19] MEDS: Benzonatate 100 MG CAP 200 MG PO ×3 (11:00→21:30)
[2020-12-19] MEDS: guaiFENesin 600 MG TABCR PO ×2 (11:00→21:32)
[2020-12-19] MEDS: Bisacodyl 5 MG TABEC PO (11:00)
[2020-12-19] MEDS: Docusate Sodium 100 MG CAP PO (11:01)
--- NOTE | 2020-12-19 11:10 | W.PM.PROGNOT ---
Date of Service Date of service: 12/19/20 Time of Service: 11:10 Assessment and Plan Assessment and plan (1) Pneumothorax, left: Status: Acute Assessment and plan: -Patient was unable to tolerate being off suction CT scan showes persistent PTX -Improvement since yesterday, off of high flow and on nasal cannula -Supplemental O2, incentive spirometer, chest PT, cough and deep breathing exercises -Continue daily chest x-rays, tiny residual pneumothorax -Lovenox for DVT ppx - Would consider a chemical pleuredesis as he would not tolerate anesthesia at this time Dr. Queen now seeing patient as well. Surgery will sign off We will be available to see patient on and the weekend (2) Persistent air leak: Status: Acute (3) Acute respiratory failure with hypoxia: Status: Acute (4) Costochondritis: Status: Acute (5) Syncope: Status: Resolved Qualifiers: Syncope type: unspecified Qualified Code(s): R55 - Syncope and collapse (6) COVID-19: Status: Acute (7) Protein-calorie malnutrition, mild: Status: Acute Assessment and plan: -Resolved nausea/vomiting -Encourage high protein PO intake -Limit narcotics as these may contribute to nausea -GI ppx on protonix Subjective Subjective Interval history since last seen: Patient not seen today. Case discussed with Dr. Stratton and Dr. Agee. Continue with small apical PTx. Most likely this is due to his continued cough. CT scan doesn't show a fistula to my read. Objective Last Vital Signs Temp 97.5 F L 12/19/20 05:15 Pulse 66 12/19/20 04:01 Resp 14 12/19/20 06:00 BP 94/44 L 12/19/20 04:01 Pulse Ox 93 12/19/20 06:00 Laboratory Results - last 24 hr 12/19/20 12/19/20 12/19/20 06:00 06:00 06:00 WBC 5.91 RBC 4.14 L Hgb 12.6 L Hct 37.6 L MCV 90.8 MCH 30.4 MCHC 33.5 RDW 11.8 Plt Count 479 H MPV 9.5 Immature Gran % 1.2 Neutrophils % 68.8 Lymphocytes % 20.5 Monocytes % 4.9 Eosinophils % 4.4 Basophils % 0.2 Nucleated RBC % 0 Absolute Neutrophils 4.07 Absolute Lymphocytes 1.21 Absolute Monocytes 0.29 Absolute Eosinophils 0.26 Absolute Basophils 0.01 PT INR D-Dimer Sodium 138 Potassium 4.8 Chloride 103 Carbon Dioxide 31.5 Anion Gap 3.5 BUN 20 H Creatinine 0.7 Estimated GFR/1.73 m2 >= 60.00 Glucose 93 Calcium 8.5 Magnesium 2.3 Ferritin > 2000 H Total Bilirubin 0.5 Conjugated Bilirubin 0.2 AST 54 H ALT 64 H Alkaline Phosphatase 52 C-Reactive Protein 2.10 H Total Protein 5.8 L Albumin 2.2 L Procalcitonin < 0.1 12/19/20 06:00 WBC RBC Hgb Hct MCV MCH MCHC RDW Plt Count MPV Immature Gran % Neutrophils % Lymphocytes % Monocytes % Eosinophils % Basophils % Nucleated RBC % Absolute Neutrophils Absolute Lymphocytes Absolute Monocytes Absolute Eosinophils Absolute Basophils PT 10.6 INR 1.1 D-Dimer 855 H Sodium Potassium Chloride Carbon Dioxide Anion Gap BUN Creatinine Estimated GFR/1.73 m2 Glucose Calcium Magnesium Ferritin Total Bilirubin Conjugated Bilirubin AST ALT Alkaline Phosphatase C-Reactive Protein Total Protein Albumin Procalcitonin
[2020-12-19] MEDS: Acetaminophen 500 MG TAB 1000 MG PO ×2 (14:44→21:30)
--- NOTE | 2020-12-19 16:31 | W.PULMCC ---
General Date of Service Date of service: 12/19/20 Time of Service: 08:30 Reason for Admission to ICU: COVID PNX Assessment and Plan Assessment and plan (1) Nausea & vomiting: Status: Acute (2) Acute respiratory failure with hypoxia: Status: Acute (3) Persistent air leak: Status: Acute (4) Pneumothorax, left: Status: Acute (5) COVID-19: Status: Acute (6) Bronchopleural fistula: Status: Acute (7) Rhabdomyolysis: Status: Acute Assessment and plan: This is a 40 yo male with excessive vomiting, coughing and COVID who was found to have a large left PNX after receiving CPAP. I suspect that there was in fact a small PNX in the JOSE A at the fissure (vs a bleb) and therapy with positive pressure and Acapella worsened this. He has a persistent air leak on chest tube and residual PNX despite being on suction. I have concerns for a BPF given continues Acapella and positive pressure therapy with PNX. Typically anything that can cause more positive pressure to the lungs in the setting of a PNX will undoubtedly worsen the PNX. Given the slight improvement in PNX from yesterday, we will keep him on suction overnight and obtain a CXR in the morning. If there is still any sign of a PNX I will discuss transfer to [facility] for placement of endobronchial valves. I discussed this treatment option with the patient. Recommendations Pulmonary: Hypoxic respiratory failure - supplemental O2 for sat goal >90% Pneumothorax - continue chest tube to suction overnight - CXR in am - no CPAP/BiPAP - no Acapella - avoid inhalers if possible - nebs ok (understanding he does have COVID) - chest CT repeated today - also recommended barium swallow to r/o esophageal tear as etiology but machine is down - no esophageal tear seen on CT scan Possible bronchopleural fistula - if PNX still present in morning will reach out to [facility] for transfer for possible endobronchial valve placement Cardiac: no acute concerns Renal: Elevated CPK - blood in urine and very elevated CPK, but no renal failure - resolved I&O: Intake & Output 12/17/20 12/18/20 12/18/20 12/19/20 00:59 00:59 23:59 23:59 Intake Total 750 / 750 Output Total 1150 / 1150 Balance -400 / -400 Weight 100.1 kg Daily Fluid Goal:: even GI Nutrition: Ok for diet Date of Last Bowel Movement: 12/19/20 Infectious Disease: COVID - agree with decadron, remdesivir and barcitinib Hematologic: no acute concerns Neurologic: no acute concerns Endocrine: monitor glucose while on steroids Lines: PIV Prophylaxis: Enoxaprin and pantoprazole Code Status: Resuscitation Status Full Code Subjective Critical and life-threatening events over the past 24 hours: 40-year-old male who was admitted for Covid pneumonia on 12/09/20 and was treated with remdesivir, baricitinib, and steroid as well as CPAP and ultimately developed a large left-sided pneumothorax. This is in the setting of significant and aggressive vomiting. It seems likely that the combination of vomiting and positive pressure resulted in his large pneumothorax. On his admission CT there is evidence of either a JOSE A bleb abutting the fissure vs small pneumothorax. He had a pigtail chest tube placed by surgery 1 week ago, however the patient is still experiencing an air leak and persistent small pneumothorax. We obtained a repeat CT that shows small residual PNX despite being on portable suction at the time. He is mildly short of breath and has a muted affect. He does not complain of significant pain and have a good appetite.He repeat CT is not concerning for esophageal tear given the vomiting. Exam Narrative Exam Narrative: Chest tube: air leak 1-2+ with deep breaths and gentle cough. Interroggated tube and working appropriately. On -[id number] wall suction. Tube in place and well dressed on patient. Const General: no acute distress Nutritional Appearance: well nourished [facility] Head: normocephalic Ears: external ears normal and no periauricular adenopathy General nose exam: nasal mucous membranes and turbinates normal Face and sinus: sinuses nontender Mouth: oropharynx normal and moist mucous membranes Teeth and gingiva: dentition normal Eyes General: appearance normal, both eyes and all related structures Pupils: PERRL Neck Neck: normal visual inspection and no lymphadenopathy Chest Chest: normal inspection of the chest Resp Effort & Inspection: normal respiratory effort Auscultation: clear to auscultation bilaterally, rales, no rhonchi and no wheezes Cardio Rate: regular rate Rhythm: regular rhythm Heart Sounds: S1 normal, S2 normal and no murmurs Pulses: radial pulses present bilaterally GI Inspection: normal to inspection Palpation: soft Skin General skin exam: no rashes or lesions noted Neuro General: patient alert, patient awake and patient oriented x3 Extrem General: no clubbing, cyanosis or edema Psych Mental Status: mental status grossly normal Affect: normal affect Attitude: cooperative Most Recent VS/Results Last Vital Signs Temp 36.4 C L 12/19/20 14:00 Pulse 84 12/19/20 16:00 Resp 24 12/19/20 16:01 BP 118/57 L 12/19/20 16:00 Pulse Ox 92 12/19/20 16:01 Laboratory Results - last 24 hr 12/19/20 12/19/20 12/19/20 06:00 06:00 06:00 WBC 5.91 RBC 4.14 L Hgb 12.6 L Hct 37.6 L MCV 90.8 MCH 30.4 MCHC 33.5 RDW 11.8 Plt Count 479 H MPV 9.5 Immature Gran % 1.2 Neutrophils % 68.8 Lymphocytes % 20.5 Monocytes % 4.9 Eosinophils % 4.4 Basophils % 0.2 Nucleated RBC % 0 Absolute Neutrophils 4.07 Absolute Lymphocytes 1.21 Absolute Monocytes 0.29 Absolute Eosinophils 0.26 Absolute Basophils 0.01 PT INR D-Dimer Sodium 138 Potassium 4.8 Chloride 103 Carbon Dioxide 31.5 Anion Gap 3.5 BUN 20 H Creatinine 0.7 Estimated GFR/1.73 m2 >= 60.00 Glucose 93 Calcium 8.5 Magnesium 2.3 Ferritin > 2000 H Total Bilirubin 0.5 Conjugated Bilirubin 0.2 AST 54 H ALT 64 H Alkaline Phosphatase 52 C-Reactive Protein 2.10 H Total Protein 5.8 L Albumin 2.2 L Procalcitonin < 0.1 12/19/20 06:00 WBC RBC Hgb Hct MCV MCH MCHC RDW Plt Count MPV Immature Gran % Neutrophils % Lymphocytes % Monocytes % Eosinophils % Basophils % Nucleated RBC % Absolute Neutrophils Absolute Lymphocytes Absolute Monocytes Absolute Eosinophils Absolute Basophils PT 10.6 INR 1.1 D-Dimer 855 H Sodium Potassium Chloride Carbon Dioxide Anion Gap BUN Creatinine Estimated GFR/1.73 m2 Glucose Calcium Magnesium Ferritin Total Bilirubin Conjugated Bilirubin AST ALT Alkaline Phosphatase C-Reactive Protein Total Protein Albumin Procalcitonin Review of Systems All systems reviewed & are unremarkable except as noted in HPI and below Time spent with patient Time spent in Critical Care: 45 Time spent in Critical care included: Coordination of care, Chart review, Documenting critically ill care, Time at immediate bedside and Discussing critically ill care with other medical staff
[2020-12-19] MEDS: Atorvastatin 40 MG TAB PO (21:30)
[2020-12-19] MEDS: Enoxaparin 30 MG/0.3 ML SYR SC (21:30)
[2020-12-19] MEDS: Senna TAB 1 TAB PO (21:30)
[2020-12-19] MEDS: Melatonin 3 MG TAB 6 MG PO (21:35)
[2020-12-20] VITALS (33 sets, daily range): BP systolic 114–139; BP diastolic 67–79; PULSE 55–128; RESP 16–24; TEMP 36.1–36.8; O2SAT 88–96
[2020-12-20] MEDS: Patch Removal 1 EACH TP (00:04)
[2020-12-20] MEDS: Acetaminophen 500 MG TAB 1000 MG PO ×2 (05:25→19:33)
--- NOTE | 2020-12-20 05:47 | DI.VRAD_ITS ---
PROCEDURE INFORMATION: Exam: XR Chest Exam date and time: 12/20/2020 12:01 AM Age: 40 years old Clinical indication: Condition or disease; Lung condition and disease; Pneumothorax; Other: Unknown; Patient HX: Covid 19 pneumonia, chest tube TECHNIQUE: Imaging protocol: XR of the chest. Views: 1 view. COMPARISON: CT CHEST WO 12/19/2020 9:48 AM FINDINGS: Tubes, catheters and devices: Left-sided chest tube in place with chest wall gas noted most prominent in the left axilla. Lungs: Heterogeneous pulmonary opacities may reflect pneumonia in the correct clinical setting. Pleural spaces: Unremarkable. No pleural effusion. No pneumothorax. Heart/Mediastinum: Unremarkable. No cardiomegaly. Bones/joints: Unremarkable. IMPRESSION: 1. Left-sided chest tube in place with chest wall gas noted most prominent in the left axilla. 2. Heterogeneous pulmonary opacities may reflect pneumonia in the correct clinical setting. Dictated and Authenticated by: Alfa Lim MD. Ordering:KRISTIN Whittington MD
--- NOTE | 2020-12-20 06:00 | DI.RAD_ITS ---
Exam(s) XR PORTABLE CHEST AP EXAM: XR PORTABLE CHEST AP CLINICAL HISTORY: pneumothorax TECHNIQUE: 2D digital imaging was performed of the chest. One image was obtained. An AP view was ob tained. COMPARISON: CR,XR XR PORTABLE CHEST AP from 12/18/2020 FINDINGS: MEDIASTINUM: Normal. HEART: Normal. PULMONARY VASCULATURE: Normal. LUNGS: There is poor inspiration. Bilateral pulmonary infiltrates are seen and appears stable. PLEURAL SPACE: There is a skin seen subcutaneous emphysema along the left chest wall and neck. No pn eumothorax is visualized. The left chest tube is again seen and is in stable position. BONE:Within normal limits for the patient's age. OTHER FINDINGS:Normal. IMPRESSION: 1. Stable pulmonary infiltrates. 2. Stable position of the left chest tube. No demonstrable pneumothorax is identified at this time. 3. Persistent subcutaneous emphysema along the left chest wall and neck. DATA REPOSITORY: RADIATION DOSE DELIVERED:
[2020-12-20 07:18] LABS: Abs Immature Grans 0.12 10^3/uL (0.0-0.06); Absolute Basophil Count 0.01 10^3/uL (0.0-0.2); Absolute Eosinophil Count 0.18 10^3/uL (0.0-0.7); Absolute Lymphocyte Count 1.67 10^3/uL (1.2-3.4); Absolute Monocyte Count 0.51 10^3/uL (0.1-0.8); Basophils % 0.1; HGB 13.6 g/dL (13.5-17.5); Immature Grans % 1.3; Lymphocytes % 18.7; MCH 30.3 pg (27.0-33.0); MCHC 33.2 % (32.0-36.0); MCV 91.3 fL (80-95); MPV 8.8 fL (8.0-11.0); Monocytes % 5.7; Neutrophils % 72.2; Nucleated RBC 0 %; Platelet Count 515 10^3/uL (130-400); RBC 4.49 10^6/uL (4.36-5.78); RDW 11.7 % (11.8-14.1); RDW-SD 39.3 fL; WBC 8.91 10^3/uL (4.4-10.8)
[2020-12-20 07:19] LABS: Absolute Neutrophil Count 6.43 10^3/uL (1.2-6.7)
[2020-12-20 07:57] LABS: Prothrombin Time 10.5 sec (9.3-11.0)
[2020-12-20 08:11] LABS: D-Dimer 971 ng/mlFEU (<500)
--- NOTE | 2020-12-20 08:19 | W.PM.PROGNOT ---
Date of Service Date of service: 12/20/20 Time of Service: 11:42 Assessment and Plan Assessment and plan (1) Acute respiratory failure with hypoxia: Status: Acute Assessment and plan: Due to COVID-19 and pneumothorax. Improving. Continue weaning O2. On 2L of O2 by [place] today. Continue treatment of COVID-19 with remdesivir, dexamethasone, baricitinib. Encourse IS, but will not use acapella or CPAP, per Dr Queen. Encourage proning. No evidence of esophageal tear to explain pneumomediastinum, and PTX is better on CT. May require surgical intervention for PTX - awaiting outcome of Dr Queen's conversation with [facility]. (2) COVID-19: Status: Acute Assessment and plan: As above (3) Pneumothorax, left: Status: Acute Assessment and plan: Complication of COVID-19/CPAP. We ruled out an esophageal tear with a CT. Does still have a small air leak. Unable to tolerate disconnect from suction. Discussed with Dr Queen. May require an intervention. Await further recommendations. (4) Syncope: Status: Resolved Assessment and plan: In setting of COVID-19 and unclear etiology of baseline tachycardia (POTS suspected). Continue cardiac monitoring. On midodrine. Qualifiers: Syncope type: unspecified Qualified Code(s): R55 - Syncope and collapse (5) Orthostatic hypotension: Status: Acute Assessment and plan: Agree that POTS vs orthostasis of COVID-19 are both possibilities. No longer symptomatic when changing position, though BPs do appear to drop. On midodrine but also on metoprolol. Continue midodrine. (6) Closed head injury: Status: Acute Assessment and plan: CT head negative. Mental status intact. Qualifiers: Encounter type: initial encounter Qualified Code(s): S09.90XA - Unspecified injury of head, initial encounter (7) Rhabdomyolysis: Status: Resolved Assessment and plan: Resolved. Qualifiers: Rhabdomyolysis type: non-traumatic Qualified Code(s): M62.82 - Rhabdomyolysis (8) Nausea & vomiting: Status: Acute Assessment and plan: While possibly due to COVID-19, canabinoid hyperemesis also needs to be considered. Advance diet as better. Continue prn ativan for both nausea and anxiety. (9) Elevated transaminase level: Status: Acute Assessment and plan: In setting of COVID-19 and rhabdomyolysis. Continue to follow (10) DVT prophylaxis: Status: Acute Assessment and plan: Continue SC lovenox (11) Discharge planning issues: Status: Acute Assessment and plan: Full code Continues to require ICU. Total Critical Care [address] Queen Subjective Subjective Interval history since last seen: Mr Song feels better. Denies dizziness, chest pain, shortness of breath, nausea. Tolerated clears. Ready to try more substantial food. Does use THC at home. 2L of O2 by [place]. O2 sats in the 90s. Still has an air leak. Dr Quene is discussing his case with [facility] pulmonology to see if transfer for an intervention is indicated. Exam Narrative Exam Narrative: General: Pleasant middle-aged male who is sitting up in bed, A&Ox3, on 2L of O2 by [place], no dyspnea/tachypnea/cyanosis, speaking in complete sentences, looks anxious HEENT: EOMI, MMM Heart: RRR, no m/r/g Lungs: Diminished breath sounds B bases, L-sided chest tube attached to suction. Abdomen: soft, nontender, nondsitended Extremities: no edema BLE's Objective Last Vital Signs Temp 36.1 C L 12/20/20 04:20 Pulse 55 L 12/20/20 04:00 Resp 22 12/20/20 05:00 BP 127/73 12/20/20 04:00 Pulse Ox 91 L 12/20/20 05:00 Laboratory Results - last 24 hr 12/19/20 12/20/20 12/20/20 06:00 07:10 07:10 WBC 8.91 D RBC 4.49 Hgb 13.6 Hct 41.0 MCV 91.3 MCH 30.3 MCHC 33.2 RDW 11.7 L Plt Count 515 H MPV 8.8 Immature Gran % 1.3 Neutrophils % 72.2 Lymphocytes % 18.7 Monocytes % 5.7 Eosinophils % 2.0 Basophils % 0.1 Nucleated RBC % 0 Absolute Neutrophils 6.43 Absolute Lymphocytes 1.67 Absolute Monocytes 0.51 Absolute Eosinophils 0.18 Absolute Basophils 0.01 PT 10.5 INR 1.0 D-Dimer 971 H Ferritin > 2000 H
[2020-12-20 09:14] LABS: Albumin 2.5 g/dL (3.4-5.0); Alkaline Phosphatase 56 U/L (46-116); BUN 21 mg/dL (7-18); Bilirubin, Total 0.5 mg/dL (0.2-1.0); CREATININE 0.8 mg/dL (0.70-1.30); Glucose 96 mg/dL (74-106); Total Protein 6.5 g/dL (6.4-8.2)
[2020-12-20 09:15] LABS: ALT 93 U/L (16-63); AST 66 U/L (15-37); Anion Gap 6.5 mmol/L (3-11); Bilirubin, Direct 0.2 mg/dL (0.0-0.2); C-Reactive Protein 2.11 mg/dL (0.0-0.3); CO2 30.5 mmol/L (21.0-32.0); Chloride 103 mmol/L (98-107); Ferritin > 2000 ng/mL (26-388); Magnesium 2.5 mg/dL (1.8-2.4); Potassium 4.7 mmol/L (3.5-5.1); Sodium 140 mmol/L (136-145)
[2020-12-20] MEDS: Lidocaine 5% Patch 1 PATCH TP (09:25)
[2020-12-20] MEDS: Enoxaparin 30 MG/0.3 ML SYR SC ×2 (09:25→19:31)
[2020-12-20] MEDS: Metoprolol 12.5 MG TAB 6.25 MG PO ×2 (09:27→19:34)
[2020-12-20] MEDS: Dexamethasone 10 MG/ML VIAL 6 MG IVP (09:27)
[2020-12-20] MEDS: Metoclopramide 10 MG/2 ML VIAL IVP (09:27)
[2020-12-20] MEDS: Zinc Sulfate 220 MG TAB PO (09:29)
[2020-12-20] MEDS: Pantoprazole 40 MG TABCR PO (09:29)
[2020-12-20] MEDS: Cholecalciferol (Vitamin D3) 1,000 UNIT TAB 2000 UNITS PO (09:29)
[2020-12-20] MEDS: Benzonatate 100 MG CAP 200 MG PO ×2 (09:29→19:35)
[2020-12-20] MEDS: Midodrine 2.5 MG TAB 7.5 MG PO ×2 (09:29→19:36)
[2020-12-20] MEDS: Bisacodyl 5 MG TABEC PO (09:30)
[2020-12-20] MEDS: Potassium Chloride 20 MEQ TABCR PO ×2 (09:30→19:33)
[2020-12-20] MEDS: guaiFENesin 600 MG TABCR PO ×2 (09:30→19:32)
[2020-12-20] MEDS: Polyethylene Glycol 3350 17 GM PACKET PO (09:30)
[2020-12-20] MEDS: Docusate Sodium 100 MG CAP PO (09:30)
[2020-12-20] MEDS: Normal Saline Flush 10 ML SYR IVP (09:30)
--- NOTE | 2020-12-20 09:31 | PDOC.CMPRO ---
- If Service Date Differs Date of service: 12/20/20 Time of Service: 09:31 Care Management Progress Note S/O: CM was unable to reach Kosta by phone. Per provider Kosta continue's to be closely monitored in the ICU. Dr. Queen will be consulting [facility] today to discuss the need for transfer. CM will continue to support discharge needs. A: 40 year old male admitted to [facility] on 12/09/20 for Covid-19 Pneumonia P: Anticipate Kosta will be discharged home via private vehicle when medically cleared by MD. He will continue to be evaluated for home O2 and VNA needs upon discharge. Financial applications provided, [facility] referral anticipated. CM will continue to support discharge planning needs.
--- NOTE | 2020-12-20 12:22 | W.PULMCC ---
General Date of Service Date of service: 12/19/20 Time of Service: 08:30 Reason for Admission to ICU: COVID PNX Assessment and Plan Assessment and plan (1) Nausea & vomiting: Status: Acute (2) Acute respiratory failure with hypoxia: Status: Acute (3) Persistent air leak: Status: Acute (4) Pneumothorax, left: Status: Acute (5) COVID-19: Status: Acute (6) Bronchopleural fistula: Status: Acute (7) Rhabdomyolysis: Status: Acute Assessment and plan: This is a 40 yo male with excessive vomiting, coughing and COVID who was found to have a large left PNX after receiving CPAP. I suspect that there was in fact a small PNX in the JOSE A at the fissure (vs a bleb) and therapy with positive pressure and Acapella worsened this. He has a persistent air leak on chest tube and residual PNX despite being on suction (although his CXR this morning it was challenging to see if there is PNX as there are worsening infiltrates. I have concerns for a BPF given continued Acapella and positive pressure therapy with PNX. Typically anything that can cause more positive pressure to the lungs in the setting of a PNX will undoubtedly worsen the PNX. Again he seems to have some slight improvement from yesterday, but I am concerned that he has a consitnued leak. He may require placement of endobronchial valves. I will discuss with [facility] pulmonary today for consideration of transfer, although his COVID complicated the logistics of this. I discussed the treatment options with the patient. Recommendations Pulmonary: Hypoxic respiratory failure - supplemental O2 for sat goal >90% Pneumothorax - continue chest tube to suction overnight - CXR in am - no CPAP/BiPAP - no Acapella - avoid inhalers if possible - nebs ok (understanding he does have COVID) - no esophageal tear seen on CT - but this would now show a small tear Possible bronchopleural fistula - discuss [facility] for transfer for possible endobronchial valve placement Cardiac: No acute concerns Renal: Elevated CPK - blood in urine and very elevated CPK, but no renal failure - resolved I&O: Intake & Output 12/18/20 12/18/20 12/19/20 12/20/20 00:59 23:59 23:59 23:59 Intake Total 1989 Output Total 2260 / 2260 740 / 740 Balance -270 / -270 -740 / -740 Weight 100.1 kg 99.1 kg Daily Fluid Goal:: even GI Nutrition: OK for diet Date of Last Bowel Movement: 12/19/20 Infectious Disease: COVID - agree with decadron and barcitinib Hematologic: No acute concerns Neurologic: No acute concerns Endocrine: monitor glucose while on steroids Lines: PIV Pigtail chest tube Prophylaxis: Enoxaparin Pantoprazole Code Status: Resuscitation Status Full Code Subjective Critical and life-threatening events over the past 24 hours: 40-year-old male who was admitted for Covid pneumonia on 12/09/20 and was treated with baricitinib, and steroids as well as CPAP and ultimately developed a large left-sided pneumothorax. This is in the setting of significant and aggressive vomiting. It seems likely that the combination of vomiting and positive pressure resulted in his large pneumothorax. On his admission CT there is evidence of either a JOSE A bleb abutting the fissure vs small pneumothorax. He had a pigtail chest tube placed by surgery 12/12/20, however the patient is still experiencing an air leak and persistent small pneumothorax. His repeat chest CT 12/19/20 shows persistence of a small left apical PNX despite being on portable suction at the time. His CT scan also shows worsening parenchymal infiltrates likely from his COVID. Today he feels fine. He denies shortness of breath or significant pain. He still has some nausea. Exam Narrative Exam Narrative: Chest tube: chest tube interrogated and functioning well. No air leak with inspiration or cough this morning. When put on water seal and back onto suction there is visible air escape into the atrium concerning for continued leak. Const General: no acute distress Nutritional Appearance: well nourished [facility] Head: normocephalic Ears: external ears normal and no periauricular adenopathy General nose exam: nasal mucous membranes and turbinates normal Face and sinus: sinuses nontender Mouth: oropharynx normal and moist mucous membranes Teeth and gingiva: dentition normal Eyes General: appearance normal, both eyes and all related structures Pupils: PERRL Neck Neck: normal visual inspection and no lymphadenopathy Chest Chest: normal inspection of the chest Resp Effort & Inspection: normal respiratory effort Auscultation: clear to auscultation bilaterally, rales, no rhonchi and no wheezes Cardio Rate: regular rate Rhythm: regular rhythm Heart Sounds: S1 normal, S2 normal and no murmurs Pulses: radial pulses present bilaterally GI Inspection: normal to inspection Palpation: soft Skin General skin exam: no rashes or lesions noted Neuro General: patient alert, patient awake and patient oriented x3 Extrem General: no clubbing, cyanosis or edema Psych Mental Status: mental status grossly normal Affect: normal affect Attitude: cooperative Most Recent VS/Results Last Vital Signs Temp 36.1 C L 12/20/20 04:20 Pulse 55 L 12/20/20 04:00 Resp 22 12/20/20 05:00 BP 127/73 12/20/20 04:00 Pulse Ox 91 L 12/20/20 05:00 Laboratory Results - last 24 hr 12/20/20 12/20/20 12/20/20 07:10 07:10 07:10 WBC 8.91 D RBC 4.49 Hgb 13.6 Hct 41.0 MCV 91.3 MCH 30.3 MCHC 33.2 RDW 11.7 L Plt Count 515 H MPV 8.8 Immature Gran % 1.3 Neutrophils % 72.2 Lymphocytes % 18.7 Monocytes % 5.7 Eosinophils % 2.0 Basophils % 0.1 Nucleated RBC % 0 Absolute Neutrophils 6.43 Absolute Lymphocytes 1.67 Absolute Monocytes 0.51 Absolute Eosinophils 0.18 Absolute Basophils 0.01 PT 10.5 INR 1.0 D-Dimer 971 H Sodium 140 Potassium 4.7 Chloride 103 Carbon Dioxide 30.5 Anion Gap 6.5 BUN 21 H Creatinine 0.8 Estimated GFR/1.73 m2 >= 60.00 Glucose 96 Calcium 9.0 Magnesium 2.5 H Ferritin > 2000 H Total Bilirubin 0.5 Conjugated Bilirubin 0.2 AST 66 H ALT 93 H Alkaline Phosphatase 56 C-Reactive Protein 2.11 H Total Protein 6.5 Albumin 2.5 L Review of Systems All systems reviewed & are unremarkable except as noted in HPI and below Time spent with patient Time spent in Critical Care: 35 Time spent in Critical care included: Coordination of care, Chart review, Documenting critically ill care, Time at immediate bedside and Discussing critically ill care with other medical staff
[2020-12-20] MEDS: Atorvastatin 40 MG TAB PO (19:33)
[2020-12-20] MEDS: Protein Nutritional Supplement 16 GM 1 OUNCE PACKET PO (19:36)
[2020-12-20] MEDS: Melatonin 3 MG TAB 6 MG PO (22:25)
[2020-12-21] VITALS (50 sets, daily range): BP systolic 106–144; BP diastolic 58–80; PULSE 55–150; RESP 2–29; TEMP 36.2–37; O2SAT 87–95
[2020-12-21] MEDS: Acetaminophen 500 MG TAB 1000 MG PO ×3 (05:05→20:48)
[2020-12-21 07:38] LABS: Abs Immature Grans 0.17 10^3/uL (0.0-0.06); Absolute Basophil Count 0.03 10^3/uL (0.0-0.2); Absolute Eosinophil Count 0.17 10^3/uL (0.0-0.7); Absolute Monocyte Count 0.73 10^3/uL (0.1-0.8); Absolute Neutrophil Count 6.62 10^3/uL (1.2-6.7); Basophils % 0.3; Eosinophils % 1.7; HCT 38.8 % (40.0-50.0); HGB 13.1 g/dL (13.5-17.5); Immature Grans % 1.7; Lymphocytes % 20.6; MCH 31.3 pg (27.0-33.0); MCHC 33.8 % (32.0-36.0); MCV 92.6 fL (80-95); Monocytes % 7.5; Neutrophils % 68.2; Nucleated RBC 0 %; Platelet Count 469 10^3/uL (130-400); RBC 4.19 10^6/uL (4.36-5.78); RDW 11.9 % (11.8-14.1); RDW-SD 39.9 fL; WBC 9.72 10^3/uL (4.4-10.8)
[2020-12-21 07:53] LABS: Prothrombin Time 10.4 sec (9.3-11.0)
[2020-12-21 07:55] LABS: Albumin 2.3 g/dL (3.4-5.0); BUN 21 mg/dL (7-18); CREATININE 0.8 mg/dL (0.70-1.30); Glucose 79 mg/dL (74-106); PHOSPHORUS 4.2 mg/dL (2.6-4.7); Total Protein 6.7 g/dL (6.4-8.2)
[2020-12-21 07:56] LABS: ALT 90 U/L (16-63); AST 52 U/L (15-37); Alkaline Phosphatase 52 U/L (46-116); Anion Gap 5.6 mmol/L (3-11); Bilirubin, Direct 0.1 mg/dL (0.0-0.2); Bilirubin, Total 0.4 mg/dL (0.2-1.0); C-Reactive Protein 0.75 mg/dL (0.0-0.3); CO2 30.4 mmol/L (21.0-32.0); Chloride 104 mmol/L (98-107); Magnesium 2.3 mg/dL (1.8-2.4); Potassium 4.3 mmol/L (3.5-5.1); Sodium 140 mmol/L (136-145)
[2020-12-21] MEDS: Benzonatate 100 MG CAP 200 MG PO ×3 (08:12→20:44)
[2020-12-21] MEDS: Dexamethasone 10 MG/ML VIAL 6 MG IVP (08:13)
[2020-12-21] MEDS: Cholecalciferol (Vitamin D3) 1,000 UNIT TAB 2000 UNITS PO (08:13)
[2020-12-21] MEDS: Enoxaparin 30 MG/0.3 ML SYR SC ×2 (08:14→20:45)
[2020-12-21] MEDS: guaiFENesin 600 MG TABCR PO ×2 (08:14→20:45)
[2020-12-21] MEDS: Metoclopramide 10 MG/2 ML VIAL IVP (08:16)
[2020-12-21 08:17] LABS: D-Dimer 801 ng/mlFEU (<500)
[2020-12-21] MEDS: Midodrine 2.5 MG TAB 7.5 MG PO ×3 (08:17→20:44)
[2020-12-21] MEDS: Metoprolol 12.5 MG TAB 6.25 MG PO (08:17)
[2020-12-21] MEDS: Pantoprazole 40 MG TABCR PO (08:18)
[2020-12-21] MEDS: Potassium Chloride 20 MEQ TABCR PO ×2 (08:18→20:43)
[2020-12-21] MEDS: Protein Nutritional Supplement 16 GM 1 OUNCE PACKET PO ×2 (08:19→20:45)
[2020-12-21] MEDS: Zinc Sulfate 220 MG TAB PO (08:19)
[2020-12-21 08:40] LABS: Ferritin > 2000 ng/mL (26-388)
--- NOTE | 2020-12-21 10:15 | CMPROGNOTE_ITS ---
- If Service Date Differs Date of service: 12/21/20 Time of Service: 10:15 Care Management Progress Note S/O: CM spoke with Kosta over the phone. He's been inpatient since 12/09/20 and is concerned about his finances due to being out of work for so long and wondered if there was any financial assistance available. CM put in a referral to [facility], and also gave him the number for [facility] rehab. Kosta shared that he is raising a teenage son, and his friend has been caring for him while he's been he re. A: 40 year old male admitted to [facility] on 12/09/20 for Covid-19 Pneumonia P: Anticipate Kosta will be discharged home via private vehicle when medically cleared by . He will continue to be evaluated for home O2 and VNA needs upon discharge. Financial applications provided and CM faxed a [facility] referral. CM will continue to support discharge planning needs.
--- NOTE | 2020-12-21 10:19 | NUR.NOTE ---
IMAGE ARCHIVIST requests patient to get out of bed to chair. Patient elects to get out of bed this afternoon. Patient tired and would like to sleep. Patient is improved and will be allowed to sleep but will need to get out of bed at noon to eat his breakfast.Nursing Note:
--- NOTE | 2020-12-21 11:41 | W.PULMCC ---
General Date of Service Date of service: 12/19/20 Time of Service: 07:45 Reason for Admission to ICU: COVID PNX Assessment and Plan Assessment and plan (1) Nausea & vomiting: Status: Acute (2) Acute respiratory failure with hypoxia: Status: Acute (3) Persistent air leak: Status: Acute (4) Pneumothorax, left: Status: Acute (5) COVID-19: Status: Acute (6) Bronchopleural fistula: Status: Acute (7) Rhabdomyolysis: Status: Acute Assessment and plan: This is a 40 yo male with excessive vomiting, coughing and COVID who was found to have a large left PNX after receiving CPAP. I suspect that there was in fact a small PNX in the JOSE A at the fissure (vs a bleb) and therapy with positive pressure and Acapella worsened this. He has a persistent air leak on chest tube and residual PNX despite being on suction (although his CXR this morning it was challenging to see if there is PNX as there are worsening infiltrates. I have concerns for a BPF given continued Acapella and positive pressure therapy with PNX. Typically anything that can cause more positive pressure to the lungs in the setting of a PNX will undoubtedly worsen the PNX. Again he seems to have some slight improvement from yesterday, but I am concerned that he has a consitnued leak. He may require placement of endobronchial valves. I discussed with pulmonary at [facility] who agreed with a waterseal trial today as it seems as though there is improvement. They will also be discussing the case with Interventional Pulmonary for the possibility for endobronchial valves. Certainly COVID complicates his picture and a discussion as the whether they would even place valves in a COVID positive patient or not will occur. He will have a waterseal trial for 4 hours today to see if he tolerates this. Recommendations Pulmonary: Hypoxic respiratory failure - supplemental O2 for sat goal >90% Pneumothorax - waterseal trial today - CXR at noon - no CPAP/BiPAP - no Acapella - avoid inhalers if possible - nebs ok (understanding he does have COVID) - no esophageal tear seen on CT - but this would not show a small tear Possible bronchopleural fistula - continue discussions with [facility] for transfer for possible endobronchial valve placement - will depend if he can tolerate waterseal Cardiac: No acute issues Renal: Elevated CPK - blood in urine and very elevated CPK, but no renal failure - resolved I&O: Intake & Output 12/18/20 12/19/20 12/20/20 12/21/20 23:59 23:59 23:59 23:59 Intake Total 1989 2230 / 2230 840 / 840 Output Total 2260 / 2260 1790 / 1790 600 / 600 Balance -270 / -270 440 / 440 240 / 240 Weight 100.1 kg 99.1 kg Daily Fluid Goal:: even to negative GI Nutrition: OK for PO Date of Last Bowel Movement: 12/20/20 Infectious Disease: COVID - agree with decadron and barcitinib Hematologic: No acute concerns Neurologic: No acute concerns Endocrine: monitor glucose daily while on Decadron Lines: PIV Chest tube Prophylaxis: Lovenox, Protonix Code Status: Resuscitation Status Full Code Subjective Critical and life-threatening events over the past 24 hours: 40-year-old male who was admitted for Covid pneumonia on 12/09/20 and was treated with baricitinib, and steroids as well as CPAP and ultimately developed a large left-sided pneumothorax. This is in the setting of significant and aggressive vomiting. It seems likely that the combination of vomiting and positive pressure resulted in his large pneumothorax. On his admission CT there is evidence of either a JOSE A bleb abutting the fissure vs small pneumothorax. He had a pigtail chest tube placed by surgery 12/12/20, however the patient is still experiencing an air leak and persistent small pneumothorax. His repeat chest CT 12/19/20 shows persistence of a small left apical PNX despite being on portable suction at the time. His CT scan also shows worsening parenchymal infiltrates likely from his COVID. Today he feels fine. He denies pain. He has stable shortness of breath and has stable oxygen requirements. Exam Narrative Exam Narrative: Chest tube: chest tube interrogated and functioning well. No air leak with inspiration or cough this morning. When put on water seal and back onto suction there is visible air escape into the atrium concerning for continued leak. Chest tube placed on waterseal. Const General: no acute distress Nutritional Appearance: well nourished [facility] Head: normocephalic Ears: external ears normal and no periauricular adenopathy General nose exam: nasal mucous membranes and turbinates normal Face and sinus: sinuses nontender Mouth: oropharynx normal and moist mucous membranes Teeth and gingiva: dentition normal Eyes General: appearance normal, both eyes and all related structures Pupils: PERRL Neck Neck: normal visual inspection and no lymphadenopathy Chest Chest: normal inspection of the chest Resp Effort & Inspection: normal respiratory effort Auscultation: clear to auscultation bilaterally, rales, no rhonchi and no wheezes Cardio Rate: regular rate Rhythm: regular rhythm Heart Sounds: S1 normal, S2 normal and no murmurs Pulses: radial pulses present bilaterally GI Inspection: normal to inspection Palpation: soft Skin General skin exam: no rashes or lesions noted Neuro General: patient alert, patient awake and patient oriented x3 Extrem General: no clubbing, cyanosis or edema Psych Mental Status: mental status grossly normal Affect: normal affect Attitude: cooperative Most Recent VS/Results Last Vital Signs Temp 36.3 C L 12/21/20 09:00 Pulse 93 H 12/21/20 09:00 Resp 18 12/21/20 09:20 BP 140/72 12/21/20 09:00 Pulse Ox 92 12/21/20 09:20 Laboratory Results - last 24 hr 12/21/20 12/21/20 12/21/20 07:15 07:15 07:15 WBC 9.72 RBC 4.19 L Hgb 13.1 L Hct 38.8 L MCV 92.6 MCH 31.3 MCHC 33.8 RDW 11.9 Plt Count 469 H MPV 9.0 Immature Gran % 1.7 Neutrophils % 68.2 Lymphocytes % 20.6 Monocytes % 7.5 Eosinophils % 1.7 Basophils % 0.3 Nucleated RBC % 0 Absolute Neutrophils 6.62 Absolute Lymphocytes 2.00 Absolute Monocytes 0.73 Absolute Eosinophils 0.17 Absolute Basophils 0.03 PT 10.4 INR 1.0 D-Dimer 801 H Sodium 140 Potassium 4.3 Chloride 104 Carbon Dioxide 30.4 Anion Gap 5.6 BUN 21 H Creatinine 0.8 Estimated GFR/1.73 m2 >= 60.00 Glucose 79 Calcium 9.0 Phosphorus 4.2 Magnesium 2.3 Ferritin > 2000 H Total Bilirubin 0.4 Conjugated Bilirubin 0.1 AST 52 H ALT 90 H Alkaline Phosphatase 52 C-Reactive Protein 0.75 H Total Protein 6.7 Albumin 2.3 L Review of Systems All systems reviewed & are unremarkable except as noted in HPI and below Time spent with patient Time spent in Critical Care: 35 Time spent in Critical care included: Coordination of care, Chart review, Documenting critically ill care, Time at immediate bedside and Discussing critically ill care with other medical staff
--- NOTE | 2020-12-21 12:00 | DI.RAD_ITS ---
Exam(s) XR PORTABLE CHEST AP EXAM: XR PORTABLE CHEST AP CLINICAL HISTORY: pneumothorax. TECHNIQUE: 2D digital imaging was performed. COMPARISON: CR,XR XR PORTABLE CHEST AP from 12/20/2020 FINDINGS: Heart size is upper normal. The mediastinum is not widened. Left pigtail chest tube again noted and left-sided subcutaneous emphysema again noted. No obvious pneumothorax evident at this time Bilateral infiltrates are again noted No obvious pleural effusions. IMPRESSION: Persistent infiltrates bilaterally. No pleural effusions. No pneumothorax at this time. Left chest tube again noted. DATA REPOSITORY: RADIATION DOSE DELIVERED: All CT scans at this facility use at least one of these dose optimization techniques: automated exposure control; mA and/or kV adjustment per patient size (includes targeted e xams where dose is matched to clinical indication); or iterative reconstruction.
--- NOTE | 2020-12-21 12:30 | NUR.NOTE ---
RN calls radiology to find out the reason for the delay in taking his x-ray. health technician hearing is a bit back logged but will be up to ICU to take the portable Chest AP.Nursing Note:
--- NOTE | 2020-12-21 13:15 | NUR.NOTE ---
Chest X-ray is performed in room.Nursing Note:
--- NOTE | 2020-12-21 13:16 | NUR.NOTE ---
RN removes soiled clothing from patient's room and places them in vinegar bag. Vinegar bag is placed in blue nettting bag. Blue netting bag is placed in patient white and blue bag and labeled.Nursing Note:
--- NOTE | 2020-12-21 13:26 | PGE_ITS ---
Date of Service Date of service: 12/21/20 Time of Service: 13:27 Assessment and Plan Assessment and plan (1) Acute respiratory failure with hypoxia: Status: Acute Assessment and plan: Due to COVID-19 and pneumothorax. Improving. Continue weaning O2. On 2L of O2 by NC with O2 saturations in the low 90's. Continue treatment of COVID-19 with remdesivir, dexamethasone, baricitinib. Encourse IS, but will not use acapella or CPAP, per Dr Queen d/t PTX. Encourage proning though he states he cannot tolerate currently. Does lie on R side. No evidence of esophageal tear to explain pneumomediastinum, and PTX is better on CT. May require surgical intervention for PTX - awaiting outcome of Dr Queen's conversation with [facility]. Chest tube to water seal today. (2) COVID-19: Status: Acute Assessment and plan: As above (3) Pneumothorax, left: Status: Acute Assessment and plan: Complication of COVID-19/CPAP. We ruled out an esophageal tear with a CT. Does still have a small air leak. Unable to tolerate disconnect from suction. Discussed with Dr Queen. May require an intervention. Chest tube to water seal. Await further recommendations. (4) Syncope: Status: Resolved Assessment and plan: In setting of COVID-19 and unclear etiology of baseline tachycardia (POTS suspected). Continue cardiac monitoring. On midodrine. Qualifiers: Syncope type: unspecified Qualified Code(s): R55 - Syncope and collapse (5) Orthostatic hypotension: Status: Acute Assessment and plan: Agree that POTS vs orthostasis of COVID-19 are both possibilities. Today, stated his heart goes into the 160's with acts such as standing to clean after a BM. On midodrine but also on metoprolol. Continue midodrine. Increase metoprolol to 12.5mg TID. (6) Closed head injury: Status: Acute Assessment and plan: CT head negative. Mental status intact. Qualifiers: Encounter type: initial encounter Qualified Code(s): S09.90XA - Unspecified injury of head, initial encounter (7) Rhabdomyolysis: Status: Resolved Assessment and plan: Resolved. Qualifiers: Rhabdomyolysis type: non-traumatic Qualified Code(s): M62.82 - Rhabdomyolysis (8) Nausea & vomiting: Status: Acute Assessment and plan: While possibly due to COVID-19, canabinoid hyperemesis also needs to be considered. Advance diet as better. Continue prn ativan for both nausea and anxiety. (9) Elevated transaminase level: Status: Acute Assessment and plan: In setting of COVID-19 and rhabdomyolysis. Continue to follow (10) DVT prophylaxis: Status: Acute Assessment and plan: Continue SC lovenox (11) Discharge planning issues: Status: Acute Assessment and plan: Full code Continues to require ICU. Discussed with Dr Queen Subjective Subjective Patient reports: no new complaints, feels better and afebrile; denies diarrhea, nausea, vomiting and shortness of breath Exam Narrative Exam Narrative: General: Pleasant middle-aged male who is sitting up in bed, A&Ox3, on 2L of O2 by NC, no dyspnea/tachypnea/cyanosis, speaking in complete sentences, looks anxious HEENT: EOMI, MMM Heart: RRR, no m/r/g Lungs: Diminished breath sounds B bases, L-sided chest tube attached to suction. Abdomen: soft, nontender, nondsitended Extremities: no edema BLE's Const General: cooperative, no acute distress and other (sitting in recliner) Nutritional Appearance: obese Orientation: alert and oriented x3 Neck Neck: full ROM and no JVD Chest Chest: other (Left side; chest tube in place.) Resp Effort & Inspection: normal respiratory effort Auscultation: clear to auscultation bilaterally and diminished lung sounds Cardio Rate: regular rate Rhythm: regular rhythm Heart Sounds: S1 normal and S2 normal GI Palpation: soft and nontender Skin General skin exam: no rashes or lesions noted Extrem General: no pedal edema and no calf tenderness Psych Speech and Movement: speech and movement normal Mood: congruent mood Affect: normal affect Objective Last Vital Signs Temp 36.4 C L 12/21/20 13:11 Pulse 123 H 12/21/20 13:11 Resp 19 12/21/20 13:11 BP 115/67 12/21/20 13:11 Pulse Ox 92 12/21/20 13:11 Laboratory Results - last 24 hr 12/21/20 12/21/20 12/21/20 07:15 07:15 07:15 WBC 9.72 RBC 4.19 L Hgb 13.1 L Hct 38.8 L MCV 92.6 MCH 31.3 MCHC 33.8 RDW 11.9 Plt Count 469 H MPV 9.0 Immature Gran % 1.7 Neutrophils % 68.2 Lymphocytes % 20.6 Monocytes % 7.5 Eosinophils % 1.7 Basophils % 0.3 Nucleated RBC % 0 Absolute Neutrophils 6.62 Absolute Lymphocytes 2.00 Absolute Monocytes 0.73 Absolute Eosinophils 0.17 Absolute Basophils 0.03 PT 10.4 INR 1.0 D-Dimer 801 H Sodium 140 Potassium 4.3 Chloride 104 Carbon Dioxide 30.4 Anion Gap 5.6 BUN 21 H Creatinine 0.8 Estimated GFR/1.73 m2 >= 60.00 Glucose 79 Calcium 9.0 Phosphorus 4.2 Magnesium 2.3 Ferritin > 2000 H Total Bilirubin 0.4 Conjugated Bilirubin 0.1 AST 52 H ALT 90 H Alkaline Phosphatase 52 C-Reactive Protein 0.75 H Total Protein 6.7 Albumin 2.3 L
[2020-12-21] MEDS: Metoprolol 12.5 MG TAB PO ×2 (13:55→20:43)
--- NOTE | 2020-12-21 14:52 | NUR.NOTE ---
14:[address] Huber. Patient's chest tube will remain to water seal. MD see no evidence any longer of pneumothorax in 12:00 chest x-ray results. Patient will have next portable chest x-ray at 20:00 tonight and then again tomorrow morning. There is a possibility that chest tube will be clamped later this evening and dc'd tomorrow morning.Nursing Note:
--- NOTE | 2020-12-21 20:27 | DI.RAD_ITS ---
Exam(s) XR PORTABLE CHEST AP EXAM: XR PORTABLE CHEST AP 20:15 CLINICAL HISTORY: pneumothorax TECHNIQUE: 2D digital imaging was performed. COMPARISON: CR,XR XR PORTABLE CHEST AP from 12/20/2020 CR,XR XR PORTABLE CHEST AP from 12/20/2020 CR XR PORTABLE CHEST AP from 12/21/2020 FINDINGS: Left chest tube, unchanged in position. Air remains present in the left-sided soft tissues of the ch est. No pneumothorax is visible. Bilateral infiltrates and low lung volumes are noted, unchanged. Heart size remains normal. IMPRESSION: No pneumothorax. Bilateral infiltrates. DATA REPOSITORY: RADIATION DOSE DELIVERED:
[2020-12-21] MEDS: Atorvastatin 40 MG TAB PO (20:43)
[2020-12-21] MEDS: Melatonin 3 MG TAB 6 MG PO (20:47)
[2020-12-21] MEDS: Senna TAB 1 TAB PO (20:48)
--- NOTE | 2020-12-21 21:11 | DI.VRAD_ITS ---
PROCEDURE INFORMATION: Exam: XR Chest Exam date and time: 12/21/2020 7:29 PM Age: 40 years old Clinical indication: Condition or disease; Other: Covid, pneumonia, pneumothorax TECHNIQUE: Imaging protocol: XR of the chest. Views: 1 view. COMPARISON: CR XR PORTABLE CHEST AP 12/21/2020 12:46 PM FINDINGS: Tubes, catheters and devices: There is stable left pigtail chest tube. Lungs: There are stable bilateral, multifocal patchy, parenchymal opacities in the lungs, compatible with the patient's history of Covid-19. Pleural spaces: Unremarkable. No pleural effusion. No pneumothorax. Heart/Mediastinum: Unremarkable cardiomediastinal silhouette. No cardiomegaly. Bones/joints: Unremarkable. Soft tissues: There is stable left subcutaneous emphysema. IMPRESSION: Stable bilateral, multifocal patchy, parenchymal opacities in the lungs, compatible with the patient's history of Covid-19. Dictated and Authenticated by: Emiliano Barriga MD. Ordering:KRISTIN Whittington MD
[2020-12-22] VITALS (25 sets, daily range): BP systolic 104–136; BP diastolic 61–81; PULSE 56–120; RESP 17–27; TEMP 36.4–36.7; O2SAT 85–94
[2020-12-22] MEDS: Normal Saline Flush 10 ML SYR IVP ×2 (08:16→20:39)
[2020-12-22] MEDS: Metoclopramide 10 MG/2 ML VIAL IVP (08:17)
[2020-12-22] MEDS: Dexamethasone 10 MG/ML VIAL 6 MG IVP (08:17)
[2020-12-22] MEDS: Pantoprazole 40 MG TABCR PO (08:18)
[2020-12-22] MEDS: Cholecalciferol (Vitamin D3) 1,000 UNIT TAB 2000 UNITS PO (08:18)
[2020-12-22] MEDS: Protein Nutritional Supplement 16 GM 1 OUNCE PACKET PO ×3 (08:18→20:39)
[2020-12-22] MEDS: Enoxaparin 30 MG/0.3 ML SYR SC ×2 (08:18→20:38)
[2020-12-22] MEDS: Midodrine 2.5 MG TAB 7.5 MG PO ×3 (08:18→20:40)
[2020-12-22] MEDS: Metoprolol 12.5 MG TAB PO ×3 (08:19→20:40)
[2020-12-22] MEDS: Zinc Sulfate 220 MG TAB PO (08:19)
[2020-12-22] MEDS: Benzonatate 100 MG CAP 200 MG PO ×3 (08:19→20:40)
[2020-12-22] MEDS: Potassium Chloride 20 MEQ TABCR PO ×2 (08:19→20:41)
[2020-12-22] MEDS: guaiFENesin 600 MG TABCR PO ×2 (08:19→20:39)
--- NOTE | 2020-12-22 08:30 | DI.RAD_ITS ---
Exam(s) XR PORTABLE CHEST AP EXAM: XR PORTABLE CHEST AP CLINICAL HISTORY: ptx TECHNIQUE: 2D digital imaging was performed. COMPARISON: CR,XR XR PORTABLE CHEST AP from 12/21/2020 FINDINGS: Stable appearance of chest tube and bilateral pulmonary infiltrates. No visible pneumothorax. Left- sided soft tissue air remains present. IMPRESSION: Bilateral infiltrates. No change in chest tube. No visible pneumothorax. DATA REPOSITORY: RADIATION DOSE DELIVERED:
--- NOTE | 2020-12-22 08:55 | PDOC.CMPRO ---
- If Service Date Differs Date of service: 12/22/20 Time of Service: 08:55 Care Management Progress Note S/O: CM connected with Kosta over the phone today. He was able to speak with [facility] and would like CM to fax over his insurance information because he lost his insurance card. CM will fax. Also, FREDI brought a [place] [facility] [employer] form to the ICU for patient to sign (the next time staff enters the room.) The form is needed for MINOO to assist him with signing up for Medicaid as a secondary insurance. A: 40 year old male admitted to [facility] on 12/09/20 for Covid-19 Pneumonia P: Anticipate Kosta will be discharged home via private vehicle when medically cleared by MD. He will continue to be evaluated for home O2 and VNA needs upon discharge. CM will continue to support discharge planning needs.
--- NOTE | 2020-12-22 09:21 | NUR.NOTE ---
Nursing Note: Patient reports losing: Wallet with 46$, hat, T-shirt, hoody, 3 pairs of underwear, 1 pair of flannel pant, hiking shoes
[2020-12-22] MEDS: Acetaminophen 500 MG TAB 1000 MG PO ×2 (13:27→22:40)
--- NOTE | 2020-12-22 13:48 | W.PM.PROGNOT ---
Date of Service Date of service: 12/22/20 Time of Service: 13:49 Assessment and Plan Assessment and plan (1) Acute respiratory failure with hypoxia: Status: Acute Assessment and plan: Due to COVID-19 and pneumothorax. Improving. Continue weaning O2. O2 saturations in the low 90's on 1L NC Continue treatment of COVID-19 with remdesivir, dexamethasone, baricitinib. Cont IS, but will not use acapella or CPAP, per Dr Queen d/t PTX. Encourage proning though he states he cannot tolerate currently. Does lie on R side. CXR without evidence of pneumothorax today. Clamped chest tube today May require surgical intervention for PTX - awaiting outcome of Dr Queen's conversation with [facility]. (2) COVID-19: Status: Acute Assessment and plan: As above (3) Pneumothorax, left: Status: Acute Assessment and plan: Complication of COVID-19/CPAP. We ruled out an esophageal tear with a CT. CXR today showed no pneumothorax; clamped chest tube. Possibly d/c chest tube tomorrow. (4) Syncope: Status: Resolved Assessment and plan: In setting of COVID-19 and unclear etiology of baseline tachycardia (POTS suspected). Metoprolol was increased yesterday. Feels less dizzin Continue cardiac monitoring. On midodrine. Qualifiers: Syncope type: unspecified Qualified Code(s): R55 - Syncope and collapse (5) Orthostatic hypotension: Status: Acute Assessment and plan: Agree that POTS vs orthostasis of COVID-19 are both possibilities. Had previously stated his heart goes into the 160's with acts such as standing to clean after a BM. On midodrine but also on metoprolol. Continued midodrine. Increase metoprolol to 12.5mg TID. Less symptomatic today. (6) Closed head injury: Status: Acute Assessment and plan: CT head negative. Mental status intact. Qualifiers: Encounter type: initial encounter Qualified Code(s): S09.90XA - Unspecified injury of head, initial encounter (7) Rhabdomyolysis: Status: Resolved Assessment and plan: Resolved. Qualifiers: Rhabdomyolysis type: non-traumatic Qualified Code(s): M62.82 - Rhabdomyolysis (8) Nausea & vomiting: Status: Acute Assessment and plan: While possibly due to COVID-19, canabinoid hyperemesis also needs to be considered. Resolved. Continue prn ativan for both nausea and anxiety. (9) Elevated transaminase level: Status: Acute Assessment and plan: In setting of COVID-19 and rhabdomyolysis. Continue to follow (10) DVT prophylaxis: Status: Acute Assessment and plan: Continue SC lovenox (11) Discharge planning issues: Status: Acute Assessment and plan: Full code Nearing likely d/c once chest tube is discontinued. Subjective Subjective Patient reports: no new complaints, tolerating a regular diet, bowel movement, shortness of breath (mild; with exertion) and afebrile; denies nausea and vomiting Exam Narrative Exam Narrative: General: Pleasant middle-aged male who is sitting up in bed, A&Ox3, on 2L of O2 by NC, no dyspnea/tachypnea/cyanosis, speaking in complete sentences, looks anxious HEENT: EOMI, MMM Heart: RRR, no m/r/g Lungs: Diminished breath sounds B bases, L-sided chest tube attached to suction. Abdomen: soft, nontender, nondsitended Extremities: no edema BLE's Const General: cooperative, no acute distress and other (sitting in recliner) Nutritional Appearance: obese Orientation: alert and oriented x3 Neck Neck: full ROM and no JVD Chest Chest: other (Left side; chest tube in place.) Resp Effort & Inspection: normal respiratory effort Auscultation: clear to auscultation bilaterally and diminished lung sounds Cardio Rate: regular rate Rhythm: regular rhythm Heart Sounds: S1 normal and S2 normal GI Palpation: soft and nontender Skin General skin exam: no rashes or lesions noted Extrem General: no pedal edema and no calf tenderness Psych Speech and Movement: speech and movement normal Mood: congruent mood Affect: normal affect Objective Last Vital Signs Temp 36.6 C 12/22/20 12:29 Pulse 103 H 12/22/20 12:02 Resp 22 12/22/20 12:02 BP 136/68 12/22/20 12:02 Pulse Ox 91 L 12/22/20 12:02
[2020-12-22] MEDS: Melatonin 3 MG TAB 6 MG PO (20:40)
[2020-12-22] MEDS: Atorvastatin 40 MG TAB PO (20:41)
[2020-12-23] VITALS (32 sets, daily range): BP systolic 111–132; BP diastolic 70–82; PULSE 63–142; RESP 16–30; TEMP 36.4–36.7; O2SAT 86–95
--- NOTE | 2020-12-23 | DI.RAD_ITS ---
Exam(s) XR CHEST 2V PA LATERAL EXAM: XR CHEST 2V PA LATERAL CLINICAL HISTORY: pneumothorax TECHNIQUE: COMPARISON: CR XR PORTABLE CHEST AP from 12/23/2020 FINDINGS: Portable AP chest at 1346 hours. Note is again made of bilateral predominantly peripheral intrapulmo nary radiodensities. Left thoracotomy tube is again noted in position. No evidence of recurrent pne umothorax. IMPRESSION: RADIATION DOSE DELIVERED: Total DLP
--- NOTE | 2020-12-23 08:26 | DI.RAD_ITS ---
Exam(s) XR PORTABLE CHEST AP EXAM: XR PORTABLE CHEST AP CLINICAL HISTORY: pneumothorax with chest tube TECHNIQUE: COMPARISON: CR XR PORTABLE CHEST AP from 12/22/2020 FINDINGS: Portable AP chest was obtained. There is a poor inspiration with apparent decreased aeration of both lungs in comparison with yesterday's examination. Peripheral bilateral pulmonary opacities are agai n noted, probably grossly unchanged from prior study. Left thoracotomy tube again noted in position. No gross recurrent pneumothorax. IMPRESSION: RADIATION DOSE DELIVERED: Total DLP
--- NOTE | 2020-12-23 08:30 | PDOC.CMPRO ---
- If Service Date Differs Date of service: 12/23/20 Time of Service: 08:30 Care Management Progress Note S/O: CM was unable to reach patient by phone today, as he did not answer his phone. Per Ramandeep at [facility] she received the insurance information and [place] [facility] [employer] forms CM faxed to her yesterday. Ramandeep will be connecting with Kosta and helping him sign up for Medicaid as a secondary insurance. Kosta also has contact info for [facility] to discuss short term disability. A: 40 year old male admitted to [facility] on 12/09/20 for Covid-19 Pneumonia P: Anticipate Kosta will be discharged home via private vehicle when medically cleared by MD. He will continue to be evaluated for home O2 and VNA needs upon discharge. CM will continue to support discharge planning needs.
--- NOTE | 2020-12-23 09:14 | PGE_ITS ---
General Date Of Service Date of service: 12/23/20 Time of Service: 15:00 Requesting physician: Aditya Acuña Subjective Note Note: Dale is doing well today. He is comfortable on room air and minimal shortness of breath. His chest tube has no bubbling today with any forced maneuver. His portable CXR is difficult to assess so a PA/LAT was obtained which clearly showed no pneumothorax. Exam Narrative Exam Narrative: Chest tube: chest tube interrogated and functioning well. No air leak with inspiration or cough this morning. Has been clamped since 12/22/20 and no evidence of air leak this morning. Const General: no acute distress Nutritional Appearance: well nourished [facility] Head: normocephalic Ears: external ears normal and no periauricular adenopathy General nose exam: nasal mucous membranes and turbinates normal Face and sinus: sinuses nontender Mouth: oropharynx normal and moist mucous membranes Teeth and gingiva: dentition normal Eyes General: appearance normal, both eyes and all related structures Pupils: PERRL Neck Neck: normal visual inspection and no lymphadenopathy Chest Chest: normal inspection of the chest Resp Effort & Inspection: normal respiratory effort Auscultation: clear to auscultation bilaterally, rales, no rhonchi and no wheezes Cardio Rate: regular rate Rhythm: regular rhythm Heart Sounds: S1 normal, S2 normal and no murmurs Pulses: radial pulses present bilaterally GI Inspection: normal to inspection Palpation: soft Skin General skin exam: no rashes or lesions noted Neuro General: patient alert, patient awake and patient oriented x3 Extrem General: no clubbing, cyanosis or edema Psych Mental Status: mental status grossly normal Affect: normal affect Attitude: cooperative Objective Last Vital Signs Temp 36.6 C 12/23/20 04:30 Pulse 72 12/23/20 02:00 Resp 21 12/23/20 02:00 BP 120/71 12/23/20 02:00 Pulse Ox 89 L 12/23/20 02:00 Results Medications Medications: Active Medications Generic Name Dose Route Start Last Admin Trade Name Freq PRN Reason Stop Dose Admin Acetaminophen 1,000 mg 12/12/20 22:00 12/23/20 06:30 Acetaminophen 500 Mg Tab PO Not Given Q8H [facility] Acetaminophen/Codeine Phosphate 1 tab 12/10/20 16:05 12/13/20 08:05 Acetaminophen 300 Mg/Codeine 30 Mg Tab PO 1 tab Q4H PRN PRN Administration Albuterol Sulfate 2 puff 12/09/20 19:31 Albuterol Hfa 8 Gm 60 Puff Inh IH Q6H PRN PRN Atorvastatin Calcium 40 mg 12/10/20 20:00 12/22/20 20:41 Atorvastatin 40 Mg Tab PO 40 mg QPM JOSELINE Administration Benzonatate 200 mg 12/17/20 08:30 12/22/20 20:40 Benzonatate 100 Mg Cap PO 200 mg TID JOSELINE Administration Bisacodyl 5 mg 12/13/20 08:30 12/22/20 11:51 Bisacodyl 5 Mg Tabec PO Not Given DAILY JOSELINE Bisacodyl 10 mg 12/15/20 10:09 Bisacodyl 10 Mg Supp UT DAILY PRN PRN Calcium Carbonate 500 mg 12/10/20 21:24 12/10/20 22:35 Calcium Carbonate *Tums* 500 Mg Chew PO 500 mg QID PRN PRN Administration Cholecalciferol 2,000 units 12/10/20 08:30 12/22/20 08:18 Cholecalciferol (Vitamin D3) 1,000 Unit Tab PO 2,000 units DAILY JOSELINE Administration Clonazepam 0.25 mg 12/15/20 14:01 12/17/20 00:31 Clonazepam 0.5 Mg Tab PO 0.25 mg BID PRN PRN Administration Device 1 each 12/09/20 20:00 Inhaler, Assist Device MC DIRECTED [facility] Dexamethasone 6 mg 12/10/20 08:30 12/22/20 08:17 Dexamethasone 10 Mg/Ml Vial IVP 6 mg DAILY JOSELINE Administration Docusate Sodium 100 mg 12/15/20 10:10 12/22/20 20:41 Docusate Sodium 100 Mg Cap PO Not Given BID [facility] Enoxaparin Sodium 30 mg 12/14/20 20:00 12/22/20 20:38 Enoxaparin 30 Mg/0.3 Ml Syr SC 30 mg Q12H JOSELINE Administration Guaifenesin 600 mg 12/17/20 08:30 12/22/20 20:39 Guaifenesin 600 Mg Tabcr PO 600 mg BID JOSELINE Administration Lidocaine 1 patch 12/16/20 08:30 12/22/20 11:52 Lidocaine 5% Patch TP Not Given DAILY JOSELINE Lorazepam 0.5 mg 12/19/20 14:41 Lorazepam 2 Mg/Ml Vial IVP Q6H PRN PRN Melatonin 6 mg 12/09/20 22:30 12/22/20 20:40 Melatonin 3 Mg Tab PO 6 mg HS JOSELINE Administration Metoprolol Tartrate 12.5 mg 12/21/20 14:00 12/22/20 20:40 Metoprolol 12.5 Mg Tab PO 12.5 mg TID JOSELINE Administration Midodrine 7.5 mg 12/18/20 14:00 12/22/20 20:40 Midodrine 2.5 Mg Tab PO 7.5 mg TID JOSELINE Administration Miscellaneous 1 each 12/16/20 20:30 12/22/20 21:19 Patch Removal TP Not Given 2030 JOSELINE Multi-Ingredient Supplement 1 ounce 12/13/20 20:00 12/22/20 20:39 Protein Nutritional Supplement 16 Gm 1 Ounce Packet PO 1 ounce TID JOSELINE Administration Ondansetron HCl 4 mg 12/16/20 13:14 12/18/20 19:27 Ondansetron 4 Mg/2 Ml Vial IVP 4 mg Q4H PRN PRN Administration Oxycodone HCl 5 mg 12/12/20 21:07 12/17/20 09:17 Oxycodone 5 Mg Tab PO 5 mg Q4H PRN PRN Administration Pantoprazole Sodium 40 mg 12/17/20 07:30 12/22/20 08:18 Pantoprazole 40 Mg Tabcr PO 40 mg DAILY@0730 JOSELINE Administration Polyethylene Glycol 17 gm 12/14/20 08:30 12/22/20 11:52 Polyethylene Glycol 3350 17 Gm Packet PO Not Given DAILY JOSELINE Potassium Chloride 20 meq 12/10/20 08:30 12/22/20 20:41 Potassium Chloride 20 Meq Tabcr PO 20 meq BID JOSELINE Administration Sennosides 1 tab 12/15/20 22:00 12/22/20 20:41 Senna Tab PO Not Given HS JOSELINE Sodium Chloride 0 ml 12/09/20 18:00 12/22/20 20:39 Normal Saline Flush 10 Ml Syr IVP 20 ml PRN PRN Administration Zinc Sulfate 220 mg 12/10/20 08:30 12/22/20 08:19 Zinc Sulfate 220 Mg Tab PO 220 mg DAILY JOSELINE Administration Allergies Sulfa (Sulfonamide Antibiotics) Allergy (Unknown, Verified 12/09/20 14:05) Labs Result Diagrams: 12/21/20 07:15 12/21/20 07:15 Labs: 12/09/20 14:45 Blood Blood Culture - Final NO GROWTH 120 HOURS 12/09/20 14:08 Blood Blood Culture - Final NO GROWTH 120 HOURS 12/10/20 08:15 Sputum Sputum Culture - Final Normal Kristy 12/10/20 08:15 Sputum Gram Stain - Final 12/09/20 16:15 Urine - Reflex from Ua Urine Culture - Final Gram Positive Kristy,Mixed Laboratory Tests Range/Units 12/09/20 12/09/20 12/09/20 14:08 14:08 14:08 WBC (4.4-10.8) 10^3/uL 6.90 RBC (4.36-5.78) 10^6/uL 4.74 Hgb (13.5-17.5) g/dL 14.6 Hct (40.0-50.0) % 41.7 MCV (80-95) fL 88.0 MCH (27.0-33.0) pg 30.8 MCHC (32.0-36.0) % 35.0 RDW (11.8-14.1) % 11.8 Plt Count (130-400) 10^3/uL 211 MPV (8.0-11.0) fL 9.4 Immature Gran % 0.6 Neutrophils % 85.3 Band Neutrophils % Lymphocytes % 9.1 Atypical Lymphs % Monocytes % 4.9 Eosinophils % 0.0 Basophils % 0.1 Nucleated RBC % % 0 Absolute Neutrophils (1.2-6.7) 10^3/uL 5.88 Absolute Lymphocytes (1.2-3.4) 10^3/uL 0.63 L Absolute Monocytes (0.1-0.8) 10^3/uL 0.34 Absolute Eosinophils (0.0-0.7) 10^3/uL 0.00 Absolute Basophils (0.0-0.2) 10^3/uL 0.01 RBC Morphology Normal PT (9.3-11.0) sec INR (0.9-1.1) D-Dimer (<500) ng/mlFEU 2001 H VBG Lactate (0.6-1.4) mmol/L Sodium (136-145) mmol/L 134 L Potassium (3.5-5.1) mmol/L 3.3 L Chloride (98-107) mmol/L 97 L Carbon Dioxide (21.0-32.0) mmol/L 29.0 Anion Gap (3-11) mmol/L 8.0 BUN (7-18) mg/dL 17 Creatinine (0.70-1.30) mg/dL 1.1 Estimated GFR/1.73 m2 (mL/min/1.73m2) >= 60.00 Glucose (74-106) mg/dL 123 H Calcium (8.5-10.1) mg/dL 8.9 Phosphorus (2.6-4.7) mg/dL Magnesium (1.8-2.4) mg/dL Ferritin (26-388) ng/mL 1669 H Total Bilirubin (0.2-1.0) mg/dL 0.9 Conjugated Bilirubin (0.0-0.2) mg/dL AST (15-37) U/L 271 H ALT (16-63) U/L 108 H Alkaline Phosphatase (46-116) U/L 50 Creatine Kinase (39-308) U/L > 55984 H Troponin I (<0.06) ng/mL < 0.05 C-Reactive Protein (0.0-0.3) mg/dL 15.62 H NT-Pro-B Natriuret Pep (<300) pg/mL 30 Total Protein (6.4-8.2) g/dL 7.9 Albumin (3.4-5.0) g/dL 2.9 L 25-OH Vitamin D Total (30-100) ng/mL Procalcitonin ng/mL Urine Color (Yellow) Urine Clarity (Clear) Urine pH (5-8) Ur Specific [place] (1.005-1.025) Urine Protein (Negative) mg/dL Urine Ketones (Negative) mg/dL Urine Blood (Negative) Urine Nitrite (Negative) Urine Bilirubin (Negative) Urine Urobilinogen (Up TO 0.2) EU/dL Ur Leukocyte Esterase (Negative) Urine RBC (0-2) HPF Urine WBC (0-5) HPF Ur Epithelial Cells (Negative) HPF Urine Crystals (Negative) HPF Urine Bacteria (Negative) HPF Urine Casts (Negative) LPF Urine Mucus (Negative) Ur Culture Indicated? Urine Glucose (Negative) mg/dL COVID-19 Source SARS-CoV-2 (PCR) (Negative) Hepatitis A IgM Ab (Negative) Hep Bs Antigen (Negative) Hep B Core Total Ab (Negative) Hepatitis C Antibody (Negative) HIV 1&2 Ag/Ab, 4th Gen (Negative) Ur Strep pneumoniae Ag (Negative) Patient ABO/Rh Range/Units 12/09/20 12/09/20 12/09/20 14:08 14:08 16:15 WBC (4.4-10.8) 10^3/uL RBC (4.36-5.78) 10^6/uL Hgb (13.5-17.5) g/dL Hct (40.0-50.0) % MCV (80-95) fL MCH (27.0-33.0) pg MCHC (32.0-36.0) % RDW (11.8-14.1) % Plt Count (130-400) 10^3/uL MPV (8.0-11.0) fL Immature Gran % Neutrophils % Band Neutrophils % Lymphocytes % Atypical Lymphs % Monocytes % Eosinophils % Basophils % Nucleated RBC % % Absolute Neutrophils (1.2-6.7) 10^3/uL Absolute Lymphocytes (1.2-3.4) 10^3/uL Absolute Monocytes (0.1-0.8) 10^3/uL Absolute Eosinophils (0.0-0.7) 10^3/uL Absolute Basophils (0.0-0.2) 10^3/uL RBC Morphology PT (9.3-11.0) sec INR (0.9-1.1) D-Dimer (<500) ng/mlFEU VBG Lactate (0.6-1.4) mmol/L 1.7 H Sodium (136-145) mmol/L Potassium (3.5-5.1) mmol/L Chloride (98-107) mmol/L Carbon Dioxide (21.0-32.0) mmol/L Anion Gap (3-11) mmol/L BUN (7-18) mg/dL Creatinine (0.70-1.30) mg/dL Estimated GFR/1.73 m2 (mL/min/1.73m2) Glucose (74-106) mg/dL Calcium (8.5-10.1) mg/dL Phosphorus (2.6-4.7) mg/dL Magnesium (1.8-2.4) mg/dL 2.3 Ferritin (26-388) ng/mL Total Bilirubin (0.2-1.0) mg/dL Conjugated Bilirubin (0.0-0.2) mg/dL AST (15-37) U/L ALT (16-63) U/L Alkaline Phosphatase (46-116) U/L Creatine Kinase (39-308) U/L Troponin I (<0.06) ng/mL C-Reactive Protein (0.0-0.3) mg/dL NT-Pro-B Natriuret Pep (<300) pg/mL Total Protein (6.4-8.2) g/dL Albumin (3.4-5.0) g/dL 25-OH Vitamin D Total (30-100) ng/mL Procalcitonin ng/mL Urine Color (Yellow) Yellow Urine Clarity (Clear) Clear Urine pH (5-8) 6.5 Ur Specific [place] (1.005-1.025) >= 1.030 H Urine Protein (Negative) mg/dL 100 H Urine Ketones (Negative) mg/dL 80 H Urine Blood (Negative) Moderate H Urine Nitrite (Negative) Negative Urine Bilirubin (Negative) Negative Urine Urobilinogen (Up TO 0.2) EU/dL 1.0 H Ur Leukocyte Esterase (Negative) Negative Urine RBC (0-2) HPF 5-10 H Urine WBC (0-5) HPF 3-5 Ur Epithelial Cells (Negative) HPF Few Urine Crystals (Negative) HPF Negative Urine Bacteria (Negative) HPF Moderate Urine Casts (Negative) LPF 0-2 Hyaline Urine Mucus (Negative) Moderate Ur Culture Indicated? Yes Urine Glucose (Negative) mg/dL Negative COVID-19 Source SARS-CoV-2 (PCR) (Negative) Hepatitis A IgM Ab (Negative) Hep Bs Antigen (Negative) Hep B Core Total Ab (Negative) Hepatitis C Antibody (Negative) HIV 1&2 Ag/Ab, 4th Gen (Negative) Ur Strep pneumoniae Ag (Negative) Patient ABO/Rh Range/Units 12/09/20 12/09/20 12/09/20 19:12 19:30 19:50 WBC (4.4-10.8) 10^3/uL RBC (4.36-5.78) 10^6/uL Hgb (13.5-17.5) g/dL Hct (40.0-50.0) % MCV (80-95) fL MCH (27.0-33.0) pg MCHC (32.0-36.0) % RDW (11.8-14.1) % Plt Count (130-400) 10^3/uL MPV (8.0-11.0) fL Immature Gran % Neutrophils % Band Neutrophils % Lymphocytes % Atypical Lymphs % Monocytes % Eosinophils % Basophils % Nucleated RBC % % Absolute Neutrophils (1.2-6.7) 10^3/uL Absolute Lymphocytes (1.2-3.4) 10^3/uL Absolute Monocytes (0.1-0.8) 10^3/uL Absolute Eosinophils (0.0-0.7) 10^3/uL Absolute Basophils (0.0-0.2) 10^3/uL RBC Morphology PT (9.3-11.0) sec INR (0.9-1.1) D-Dimer (<500) ng/mlFEU VBG Lactate (0.6-1.4) mmol/L Sodium (136-145) mmol/L Potassium (3.5-5.1) mmol/L Chloride (98-107) mmol/L Carbon Dioxide (21.0-32.0) mmol/L Anion Gap (3-11) mmol/L BUN (7-18) mg/dL Creatinine (0.70-1.30) mg/dL Estimated GFR/1.73 m2 (mL/min/1.73m2) Glucose (74-106) mg/dL Calcium (8.5-10.1) mg/dL Phosphorus (2.6-4.7) mg/dL Magnesium (1.8-2.4) mg/dL Ferritin (26-388) ng/mL Total Bilirubin (0.2-1.0) mg/dL Conjugated Bilirubin (0.0-0.2) mg/dL AST (15-37) U/L ALT (16-63) U/L Alkaline Phosphatase (46-116) U/L Creatine Kinase (39-308) U/L Troponin I (<0.06) ng/mL C-Reactive Protein (0.0-0.3) mg/dL NT-Pro-B Natriuret Pep (<300) pg/mL Total Protein (6.4-8.2) g/dL Albumin (3.4-5.0) g/dL 25-OH Vitamin D Total (30-100) ng/mL Procalcitonin ng/mL < 0.1 Urine Color (Yellow) Urine Clarity (Clear) Urine pH (5-8) Ur Specific [place] (1.005-1.025) Urine Protein (Negative) mg/dL Urine Ketones (Negative) mg/dL Urine Blood (Negative) Urine Nitrite (Negative) Urine Bilirubin (Negative) Urine Urobilinogen (Up TO 0.2) EU/dL Ur Leukocyte Esterase (Negative) Urine RBC (0-2) HPF Urine WBC (0-5) HPF Ur Epithelial Cells (Negative) HPF Urine Crystals (Negative) HPF Urine Bacteria (Negative) HPF Urine Casts (Negative) LPF Urine Mucus (Negative) Ur Culture Indicated? Urine Glucose (Negative) mg/dL COVID-19 Source Nasal/Nares SARS-CoV-2 (PCR) (Negative) POSITIVE A* Hepatitis A IgM Ab (Negative) Hep Bs Antigen (Negative) Hep B Core Total Ab (Negative) Hepatitis C Antibody (Negative) HIV 1&2 Ag/Ab, 4th Gen (Negative) Ur Strep pneumoniae Ag (Negative) Patient ABO/Rh O Positive Range/Units 12/10/20 12/10/20 12/10/20 07:25 07:25 07:25 WBC (4.4-10.8) 10^3/uL 11.52 H D RBC (4.36-5.78) 10^6/uL 4.30 L Hgb (13.5-17.5) g/dL 13.1 L Hct (40.0-50.0) % 38.7 L MCV (80-95) fL 90.0 MCH (27.0-33.0) pg 30.5 MCHC (32.0-36.0) % 33.9 RDW (11.8-14.1) % 12.1 Plt Count (130-400) 10^3/uL 236 MPV (8.0-11.0) fL 9.7 Immature Gran % 0.0 Neutrophils % 85.0 Band Neutrophils % 5 Lymphocytes % 4.0 Atypical Lymphs % Monocytes % 3.0 Eosinophils % 0.0 Basophils % 0.0 Nucleated RBC % % 0 Absolute Neutrophils (1.2-6.7) 10^3/uL 10.37 H Absolute Lymphocytes (1.2-3.4) 10^3/uL 0.46 L Absolute Monocytes (0.1-0.8) 10^3/uL 0.35 Absolute Eosinophils (0.0-0.7) 10^3/uL 0.00 Absolute Basophils (0.0-0.2) 10^3/uL 0.00 RBC Morphology Normal PT (9.3-11.0) sec INR (0.9-1.1) D-Dimer (<500) ng/mlFEU 1627 H VBG Lactate (0.6-1.4) mmol/L Sodium (136-145) mmol/L 139 Potassium (3.5-5.1) mmol/L 4.2 D Chloride (98-107) mmol/L 104 Carbon Dioxide (21.0-32.0) mmol/L 28.9 Anion Gap (3-11) mmol/L 6.1 BUN (7-18) mg/dL 11 D Creatinine (0.70-1.30) mg/dL 0.9 Estimated GFR/1.73 m2 (mL/min/1.73m2) >= 60.00 Glucose (74-106) mg/dL 133 H Calcium (8.5-10.1) mg/dL 8.6 Phosphorus (2.6-4.7) mg/dL Magnesium (1.8-2.4) mg/dL Ferritin (26-388) ng/mL 1580 H Total Bilirubin (0.2-1.0) mg/dL 0.4 Conjugated Bilirubin (0.0-0.2) mg/dL AST (15-37) U/L 196 H ALT (16-63) U/L 93 H Alkaline Phosphatase (46-116) U/L 47 Creatine Kinase (39-308) U/L 7734 H Troponin I (<0.06) ng/mL C-Reactive Protein (0.0-0.3) mg/dL 12.13 H NT-Pro-B Natriuret Pep (<300) pg/mL Total Protein (6.4-8.2) g/dL 7.0 Albumin (3.4-5.0) g/dL 2.4 L 25-OH Vitamin D Total (30-100) ng/mL Procalcitonin ng/mL Urine Color (Yellow) Urine Clarity (Clear) Urine pH (5-8) Ur Specific [place] (1.005-1.025) Urine Protein (Negative) mg/dL Urine Ketones (Negative) mg/dL Urine Blood (Negative) Urine Nitrite (Negative) Urine Bilirubin (Negative) Urine Urobilinogen (Up TO 0.2) EU/dL Ur Leukocyte Esterase (Negative) Urine RBC (0-2) HPF Urine WBC (0-5) HPF Ur Epithelial Cells (Negative) HPF Urine Crystals (Negative) HPF Urine Bacteria (Negative) HPF Urine Casts (Negative) LPF Urine Mucus (Negative) Ur Culture Indicated? Urine Glucose (Negative) mg/dL COVID-19 Source SARS-CoV-2 (PCR) (Negative) Hepatitis A IgM Ab (Negative) Hep Bs Antigen (Negative) Hep B Core Total Ab (Negative) Hepatitis C Antibody (Negative) HIV 1&2 Ag/Ab, 4th Gen (Negative) Ur Strep pneumoniae Ag (Negative) Patient ABO/Rh Range/Units 12/10/20 12/10/20 12/10/20 07:25 07:25 07:25 WBC (4.4-10.8) 10^3/uL RBC (4.36-5.78) 10^6/uL Hgb (13.5-17.5) g/dL Hct (40.0-50.0) % MCV (80-95) fL MCH (27.0-33.0) pg MCHC (32.0-36.0) % RDW (11.8-14.1) % Plt Count (130-400) 10^3/uL MPV (8.0-11.0) fL Immature Gran % Neutrophils % Band Neutrophils % Lymphocytes % Atypical Lymphs % Monocytes % Eosinophils % Basophils % Nucleated RBC % % Absolute Neutrophils (1.2-6.7) 10^3/uL Absolute Lymphocytes (1.2-3.4) 10^3/uL Absolute Monocytes (0.1-0.8) 10^3/uL Absolute Eosinophils (0.0-0.7) 10^3/uL Absolute Basophils (0.0-0.2) 10^3/uL RBC Morphology PT (9.3-11.0) sec INR (0.9-1.1) D-Dimer (<500) ng/mlFEU VBG Lactate (0.6-1.4) mmol/L Sodium (136-145) mmol/L Potassium (3.5-5.1) mmol/L Chloride (98-107) mmol/L Carbon Dioxide (21.0-32.0) mmol/L Anion Gap (3-11) mmol/L BUN (7-18) mg/dL Creatinine (0.70-1.30) mg/dL Estimated GFR/1.73 m2 (mL/min/1.73m2) Glucose (74-106) mg/dL Calcium (8.5-10.1) mg/dL Phosphorus (2.6-4.7) mg/dL Magnesium (1.8-2.4) mg/dL Ferritin (26-388) ng/mL Total Bilirubin (0.2-1.0) mg/dL Conjugated Bilirubin (0.0-0.2) mg/dL AST (15-37) U/L ALT (16-63) U/L Alkaline Phosphatase (46-116) U/L Creatine Kinase (39-308) U/L Troponin I (<0.06) ng/mL C-Reactive Protein (0.0-0.3) mg/dL NT-Pro-B Natriuret Pep (<300) pg/mL Total Protein (6.4-8.2) g/dL Albumin (3.4-5.0) g/dL 25-OH Vitamin D Total (30-100) ng/mL 27.9 L Procalcitonin ng/mL Urine Color (Yellow) Urine Clarity (Clear) Urine pH (5-8) Ur Specific [place] (1.005-1.025) Urine Protein (Negative) mg/dL Urine Ketones (Negative) mg/dL Urine Blood (Negative) Urine Nitrite (Negative) Urine Bilirubin (Negative) Urine Urobilinogen (Up TO 0.2) EU/dL Ur Leukocyte Esterase (Negative) Urine RBC (0-2) HPF Urine WBC (0-5) HPF Ur Epithelial Cells (Negative) HPF Urine Crystals (Negative) HPF Urine Bacteria (Negative) HPF Urine Casts (Negative) LPF Urine Mucus (Negative) Ur Culture Indicated? Urine Glucose (Negative) mg/dL COVID-19 Source SARS-CoV-2 (PCR) (Negative) Hepatitis A IgM Ab (Negative) Negative Hep Bs Antigen (Negative) Negative Hep B Core Total Ab (Negative) Negative Hepatitis C Antibody (Negative) Negative HIV 1&2 Ag/Ab, 4th Gen (Negative) Negative Ur Strep pneumoniae Ag (Negative) Patient ABO/Rh Range/Units 12/10/20 12/10/20 12/11/20 11:40 12:30 07:30 WBC (4.4-10.8) 10^3/uL RBC (4.36-5.78) 10^6/uL Hgb (13.5-17.5) g/dL Hct (40.0-50.0) % MCV (80-95) fL MCH (27.0-33.0) pg MCHC (32.0-36.0) % RDW (11.8-14.1) % Plt Count (130-400) 10^3/uL MPV (8.0-11.0) fL Immature Gran % Neutrophils % Band Neutrophils % Lymphocytes % Atypical Lymphs % Monocytes % Eosinophils % Basophils % Nucleated RBC % % Absolute Neutrophils (1.2-6.7) 10^3/uL Absolute Lymphocytes (1.2-3.4) 10^3/uL Absolute Monocytes (0.1-0.8) 10^3/uL Absolute Eosinophils (0.0-0.7) 10^3/uL Absolute Basophils (0.0-0.2) 10^3/uL RBC Morphology PT (9.3-11.0) sec 11.9 H INR (0.9-1.1) 1.2 H D-Dimer (<500) ng/mlFEU VBG Lactate (0.6-1.4) mmol/L Sodium (136-145) mmol/L 138 Potassium (3.5-5.1) mmol/L 4.1 Chloride (98-107) mmol/L 103 Carbon Dioxide (21.0-32.0) mmol/L 27.9 Anion Gap (3-11) mmol/L 7.1 BUN (7-18) mg/dL 15 Creatinine (0.70-1.30) mg/dL 0.9 Estimated GFR/1.73 m2 (mL/min/1.73m2) >= 60.00 Glucose (74-106) mg/dL 134 H Calcium (8.5-10.1) mg/dL 8.5 Phosphorus (2.6-4.7) mg/dL Magnesium (1.8-2.4) mg/dL Ferritin (26-388) ng/mL 1498 H Total Bilirubin (0.2-1.0) mg/dL 0.3 Conjugated Bilirubin (0.0-0.2) mg/dL AST (15-37) U/L 119 H ALT (16-63) U/L 84 H Alkaline Phosphatase (46-116) U/L 46 Creatine Kinase (39-308) U/L 3308 H Troponin I (<0.06) ng/mL C-Reactive Protein (0.0-0.3) mg/dL 8.06 H NT-Pro-B Natriuret Pep (<300) pg/mL Total Protein (6.4-8.2) g/dL 6.7 Albumin (3.4-5.0) g/dL 2.2 L 25-OH Vitamin D Total (30-100) ng/mL Procalcitonin ng/mL Urine Color (Yellow) Urine Clarity (Clear) Urine pH (5-8) Ur Specific [place] (1.005-1.025) Urine Protein (Negative) mg/dL Urine Ketones (Negative) mg/dL Urine Blood (Negative) Urine Nitrite (Negative) Urine Bilirubin (Negative) Urine Urobilinogen (Up TO 0.2) EU/dL Ur Leukocyte Esterase (Negative) Urine RBC (0-2) HPF Urine WBC (0-5) HPF Ur Epithelial Cells (Negative) HPF Urine Crystals (Negative) HPF Urine Bacteria (Negative) HPF Urine Casts (Negative) LPF Urine Mucus (Negative) Ur Culture Indicated? Urine Glucose (Negative) mg/dL COVID-19 Source SARS-CoV-2 (PCR) (Negative) Hepatitis A IgM Ab (Negative) Hep Bs Antigen (Negative) Hep B Core Total Ab (Negative) Hepatitis C Antibody (Negative) HIV 1&2 Ag/Ab, 4th Gen (Negative) Ur Strep pneumoniae Ag (Negative) Negative Patient ABO/Rh Range/Units 12/11/20 12/11/20 12/12/20 07:30 07:30 06:40 WBC (4.4-10.8) 10^3/uL 8.23 RBC (4.36-5.78) 10^6/uL 4.08 L Hgb (13.5-17.5) g/dL 12.2 L Hct (40.0-50.0) % 36.8 L MCV (80-95) fL 90.2 MCH (27.0-33.0) pg 29.9 MCHC (32.0-36.0) % 33.2 RDW (11.8-14.1) % 12.1 Plt Count (130-400) 10^3/uL 280 MPV (8.0-11.0) fL 9.4 Immature Gran % 0.0 Neutrophils % 87.0 Band Neutrophils % 2 Lymphocytes % 4.0 Atypical Lymphs % 2 Monocytes % 5.0 Eosinophils % 0.0 Basophils % 0.0 Nucleated RBC % % 0 Absolute Neutrophils (1.2-6.7) 10^3/uL 7.32 H Absolute Lymphocytes (1.2-3.4) 10^3/uL 0.49 L Absolute Monocytes (0.1-0.8) 10^3/uL 0.41 Absolute Eosinophils (0.0-0.7) 10^3/uL 0.00 Absolute Basophils (0.0-0.2) 10^3/uL 0.00 RBC Morphology Normal PT (9.3-11.0) sec INR (0.9-1.1) D-Dimer (<500) ng/mlFEU 1336 H VBG Lactate (0.6-1.4) mmol/L Sodium (136-145) mmol/L 141 Potassium (3.5-5.1) mmol/L 4.4 Chloride (98-107) mmol/L 103 Carbon Dioxide (21.0-32.0) mmol/L 31.1 Anion Gap (3-11) mmol/L 6.9 BUN (7-18) mg/dL 17 Creatinine (0.70-1.30) mg/dL 0.9 Estimated GFR/1.73 m2 (mL/min/1.73m2) >= 60.00 Glucose (74-106) mg/dL 115 H Calcium (8.5-10.1) mg/dL 8.8 Phosphorus (2.6-4.7) mg/dL Magnesium (1.8-2.4) mg/dL Ferritin (26-388) ng/mL 1782 H Total Bilirubin (0.2-1.0) mg/dL 0.4 Conjugated Bilirubin (0.0-0.2) mg/dL AST (15-37) U/L 122 H ALT (16-63) U/L 85 H Alkaline Phosphatase (46-116) U/L 49 Creatine Kinase (39-308) U/L 1832 H Troponin I (<0.06) ng/mL C-Reactive Protein (0.0-0.3) mg/dL 4.32 H NT-Pro-B Natriuret Pep (<300) pg/mL Total Protein (6.4-8.2) g/dL 7.1 Albumin (3.4-5.0) g/dL 2.3 L 25-OH Vitamin D Total (30-100) ng/mL Procalcitonin ng/mL Urine Color (Yellow) Urine Clarity (Clear) Urine pH (5-8) Ur Specific [place] (1.005-1.025) Urine Protein (Negative) mg/dL Urine Ketones (Negative) mg/dL Urine Blood (Negative) Urine Nitrite (Negative) Urine Bilirubin (Negative) Urine Urobilinogen (Up TO 0.2) EU/dL Ur Leukocyte Esterase (Negative) Urine RBC (0-2) HPF Urine WBC (0-5) HPF Ur Epithelial Cells (Negative) HPF Urine Crystals (Negative) HPF Urine Bacteria (Negative) HPF Urine Casts (Negative) LPF Urine Mucus (Negative) Ur Culture Indicated? Urine Glucose (Negative) mg/dL COVID-19 Source SARS-CoV-2 (PCR) (Negative) Hepatitis A IgM Ab (Negative) Hep Bs Antigen (Negative) Hep B Core Total Ab (Negative) Hepatitis C Antibody (Negative) HIV 1&2 Ag/Ab, 4th Gen (Negative) Ur Strep pneumoniae Ag (Negative) Patient ABO/Rh Range/Units 12/12/20 12/12/20 12/12/20 06:40 06:40 06:40 WBC (4.4-10.8) 10^3/uL 5.26 D RBC (4.36-5.78) 10^6/uL 4.29 L Hgb (13.5-17.5) g/dL 13.5 Hct (40.0-50.0) % 39.8 L MCV (80-95) fL 92.8 MCH (27.0-33.0) pg 31.5 MCHC (32.0-36.0) % 33.9 RDW (11.8-14.1) % 12.0 Plt Count (130-400) 10^3/uL 332 MPV (8.0-11.0) fL 9.0 Immature Gran % See Differential Neutrophils % 80.0 Band Neutrophils % Lymphocytes % 10.0 Atypical Lymphs % 1 Monocytes % 5.0 Eosinophils % 2.0 Basophils % 2.0 Nucleated RBC % % 0 Absolute Neutrophils (1.2-6.7) 10^3/uL 4.21 Absolute Lymphocytes (1.2-3.4) 10^3/uL 0.58 L Absolute Monocytes (0.1-0.8) 10^3/uL 0.26 Absolute Eosinophils (0.0-0.7) 10^3/uL 0.11 Absolute Basophils (0.0-0.2) 10^3/uL 0.11 RBC Morphology Normal PT (9.3-11.0) sec INR (0.9-1.1) D-Dimer (<500) ng/mlFEU 1337 H VBG Lactate (0.6-1.4) mmol/L Sodium (136-145) mmol/L Potassium (3.5-5.1) mmol/L Chloride (98-107) mmol/L Carbon Dioxide (21.0-32.0) mmol/L Anion Gap (3-11) mmol/L BUN (7-18) mg/dL Creatinine (0.70-1.30) mg/dL Estimated GFR/1.73 m2 (mL/min/1.73m2) Glucose (74-106) mg/dL Calcium (8.5-10.1) mg/dL Phosphorus (2.6-4.7) mg/dL Magnesium (1.8-2.4) mg/dL Ferritin (26-388) ng/mL Total Bilirubin (0.2-1.0) mg/dL Conjugated Bilirubin (0.0-0.2) mg/dL AST (15-37) U/L ALT (16-63) U/L Alkaline Phosphatase (46-116) U/L Creatine Kinase (39-308) U/L Troponin I (<0.06) ng/mL C-Reactive Protein (0.0-0.3) mg/dL NT-Pro-B Natriuret Pep (<300) pg/mL Total Protein (6.4-8.2) g/dL Albumin (3.4-5.0) g/dL 25-OH Vitamin D Total (30-100) ng/mL Procalcitonin ng/mL < 0.1 Urine Color (Yellow) Urine Clarity (Clear) Urine pH (5-8) Ur Specific [place] (1.005-1.025) Urine Protein (Negative) mg/dL Urine Ketones (Negative) mg/dL Urine Blood (Negative) Urine Nitrite (Negative) Urine Bilirubin (Negative) Urine Urobilinogen (Up TO 0.2) EU/dL Ur Leukocyte Esterase (Negative) Urine RBC (0-2) HPF Urine WBC (0-5) HPF Ur Epithelial Cells (Negative) HPF Urine Crystals (Negative) HPF Urine Bacteria (Negative) HPF Urine Casts (Negative) LPF Urine Mucus (Negative) Ur Culture Indicated? Urine Glucose (Negative) mg/dL COVID-19 Source SARS-CoV-2 (PCR) (Negative) Hepatitis A IgM Ab (Negative) Hep Bs Antigen (Negative) Hep B Core Total Ab (Negative) Hepatitis C Antibody (Negative) HIV 1&2 Ag/Ab, 4th Gen (Negative) Ur Strep pneumoniae Ag (Negative) Patient ABO/Rh Range/Units 12/12/20 12/13/20 12/13/20 10:55 06:35 06:35 WBC (4.4-10.8) 10^3/uL 4.81 RBC (4.36-5.78) 10^6/uL 4.62 Hgb (13.5-17.5) g/dL 13.9 Hct (40.0-50.0) % 41.7 MCV (80-95) fL 90.3 MCH (27.0-33.0) pg 30.1 MCHC (32.0-36.0) % 33.3 RDW (11.8-14.1) % 12.1 Plt Count (130-400) 10^3/uL 412 H MPV (8.0-11.0) fL 9.0 Immature Gran % 0.0 Neutrophils % 80.0 Band Neutrophils % 2 Lymphocytes % 11.0 Atypical Lymphs % 3 Monocytes % 2.0 Eosinophils % 2.0 Basophils % 0.0 Nucleated RBC % % 0 Absolute Neutrophils (1.2-6.7) 10^3/uL 3.94 Absolute Lymphocytes (1.2-3.4) 10^3/uL 0.67 L Absolute Monocytes (0.1-0.8) 10^3/uL 0.10 Absolute Eosinophils (0.0-0.7) 10^3/uL 0.10 Absolute Basophils (0.0-0.2) 10^3/uL 0.00 RBC Morphology Normal PT (9.3-11.0) sec INR (0.9-1.1) D-Dimer (<500) ng/mlFEU VBG Lactate (0.6-1.4) mmol/L Sodium (136-145) mmol/L 139 Potassium (3.5-5.1) mmol/L 4.3 Chloride (98-107) mmol/L 102 Carbon Dioxide (21.0-32.0) mmol/L 29.0 Anion Gap (3-11) mmol/L 8.0 BUN (7-18) mg/dL 21 H Creatinine (0.70-1.30) mg/dL 0.8 Estimated GFR/1.73 m2 (mL/min/1.73m2) >= 60.00 Glucose (74-106) mg/dL 120 H Calcium (8.5-10.1) mg/dL 9.0 Phosphorus (2.6-4.7) mg/dL Magnesium (1.8-2.4) mg/dL Ferritin (26-388) ng/mL 1925 H Total Bilirubin (0.2-1.0) mg/dL 0.6 Conjugated Bilirubin (0.0-0.2) mg/dL AST (15-37) U/L 124 H ALT (16-63) U/L 86 H Alkaline Phosphatase (46-116) U/L 49 Creatine Kinase (39-308) U/L 1111 H Troponin I (<0.06) ng/mL < 0.05 C-Reactive Protein (0.0-0.3) mg/dL 4.97 H NT-Pro-B Natriuret Pep (<300) pg/mL 234 Total Protein (6.4-8.2) g/dL 7.3 Albumin (3.4-5.0) g/dL 2.4 L 25-OH Vitamin D Total (30-100) ng/mL Procalcitonin ng/mL Urine Color (Yellow) Urine Clarity (Clear) Urine pH (5-8) Ur Specific [place] (1.005-1.025) Urine Protein (Negative) mg/dL Urine Ketones (Negative) mg/dL Urine Blood (Negative) Urine Nitrite (Negative) Urine Bilirubin (Negative) Urine Urobilinogen (Up TO 0.2) EU/dL Ur Leukocyte Esterase (Negative) Urine RBC (0-2) HPF Urine WBC (0-5) HPF Ur Epithelial Cells (Negative) HPF Urine Crystals (Negative) HPF Urine Bacteria (Negative) HPF Urine Casts (Negative) LPF Urine Mucus (Negative) Ur Culture Indicated? Urine Glucose (Negative) mg/dL COVID-19 Source SARS-CoV-2 (PCR) (Negative) Hepatitis A IgM Ab (Negative) Hep Bs Antigen (Negative) Hep B Core Total Ab (Negative) Hepatitis C Antibody (Negative) HIV 1&2 Ag/Ab, 4th Gen (Negative) Ur Strep pneumoniae Ag (Negative) Patient ABO/Rh Range/Units 12/13/20 12/14/20 12/14/20 06:35 07:40 07:40 WBC (4.4-10.8) 10^3/uL 6.45 D RBC (4.36-5.78) 10^6/uL 4.74 Hgb (13.5-17.5) g/dL 14.3 Hct (40.0-50.0) % 43.5 MCV (80-95) fL 91.8 MCH (27.0-33.0) pg 30.2 MCHC (32.0-36.0) % 32.9 RDW (11.8-14.1) % 11.8 Plt Count (130-400) 10^3/uL 440 H MPV (8.0-11.0) fL 9.0 Immature Gran % 0.8 Neutrophils % 82.7 Band Neutrophils % Lymphocytes % 11.8 Atypical Lymphs % Monocytes % 2.3 Eosinophils % 2.2 Basophils % 0.2 Nucleated RBC % % 0 Absolute Neutrophils (1.2-6.7) 10^3/uL 5.33 Absolute Lymphocytes (1.2-3.4) 10^3/uL 0.76 L Absolute Monocytes (0.1-0.8) 10^3/uL 0.15 Absolute Eosinophils (0.0-0.7) 10^3/uL 0.14 Absolute Basophils (0.0-0.2) 10^3/uL 0.01 RBC Morphology PT (9.3-11.0) sec INR (0.9-1.1) D-Dimer (<500) ng/mlFEU 1274 H VBG Lactate (0.6-1.4) mmol/L Sodium (136-145) mmol/L 140 Potassium (3.5-5.1) mmol/L 4.6 Chloride (98-107) mmol/L 104 Carbon Dioxide (21.0-32.0) mmol/L 28.3 Anion Gap (3-11) mmol/L 7.7 BUN (7-18) mg/dL 22 H Creatinine (0.70-1.30) mg/dL 0.8 Estimated GFR/1.73 m2 (mL/min/1.73m2) >= 60.00 Glucose (74-106) mg/dL 111 H Calcium (8.5-10.1) mg/dL 9.3 Phosphorus (2.6-4.7) mg/dL Magnesium (1.8-2.4) mg/dL Ferritin (26-388) ng/mL > 2000 H Total Bilirubin (0.2-1.0) mg/dL 0.6 Conjugated Bilirubin (0.0-0.2) mg/dL AST (15-37) U/L 142 H ALT (16-63) U/L 80 H Alkaline Phosphatase (46-116) U/L 51 Creatine Kinase (39-308) U/L Troponin I (<0.06) ng/mL C-Reactive Protein (0.0-0.3) mg/dL 5.09 H NT-Pro-B Natriuret Pep (<300) pg/mL Total Protein (6.4-8.2) g/dL 7.5 Albumin (3.4-5.0) g/dL 2.4 L 25-OH Vitamin D Total (30-100) ng/mL Procalcitonin ng/mL Urine Color (Yellow) Urine Clarity (Clear) Urine pH (5-8) Ur Specific [place] (1.005-1.025) Urine Protein (Negative) mg/dL Urine Ketones (Negative) mg/dL Urine Blood (Negative) Urine Nitrite (Negative) Urine Bilirubin (Negative) Urine Urobilinogen (Up TO 0.2) EU/dL Ur Leukocyte Esterase (Negative) Urine RBC (0-2) HPF Urine WBC (0-5) HPF Ur Epithelial Cells (Negative) HPF Urine Crystals (Negative) HPF Urine Bacteria (Negative) HPF Urine Casts (Negative) LPF Urine Mucus (Negative) Ur Culture Indicated? Urine Glucose (Negative) mg/dL COVID-19 Source SARS-CoV-2 (PCR) (Negative) Hepatitis A IgM Ab (Negative) Hep Bs Antigen (Negative) Hep B Core Total Ab (Negative) Hepatitis C Antibody (Negative) HIV 1&2 Ag/Ab, 4th Gen (Negative) Ur Strep pneumoniae Ag (Negative) Patient ABO/Rh Range/Units 12/14/20 12/15/20 12/15/20 07:40 07:00 07:00 WBC (4.4-10.8) 10^3/uL RBC (4.36-5.78) 10^6/uL Hgb (13.5-17.5) g/dL Hct (40.0-50.0) % MCV (80-95) fL MCH (27.0-33.0) pg MCHC (32.0-36.0) % RDW (11.8-14.1) % Plt Count (130-400) 10^3/uL MPV (8.0-11.0) fL Immature Gran % Neutrophils % Band Neutrophils % Lymphocytes % Atypical Lymphs % Monocytes % Eosinophils % Basophils % Nucleated RBC % % Absolute Neutrophils (1.2-6.7) 10^3/uL Absolute Lymphocytes (1.2-3.4) 10^3/uL Absolute Monocytes (0.1-0.8) 10^3/uL Absolute Eosinophils (0.0-0.7) 10^3/uL Absolute Basophils (0.0-0.2) 10^3/uL RBC Morphology PT (9.3-11.0) sec 11.5 H INR (0.9-1.1) 1.1 D-Dimer (<500) ng/mlFEU 2034 H 1840 H VBG Lactate (0.6-1.4) mmol/L Sodium (136-145) mmol/L 135 L Potassium (3.5-5.1) mmol/L 4.2 Chloride (98-107) mmol/L 102 Carbon Dioxide (21.0-32.0) mmol/L 29.5 Anion Gap (3-11) mmol/L 3.5 BUN (7-18) mg/dL 26 H Creatinine (0.70-1.30) mg/dL 0.8 Estimated GFR/1.73 m2 (mL/min/1.73m2) >= 60.00 Glucose (74-106) mg/dL 98 Calcium (8.5-10.1) mg/dL 9.1 Phosphorus (2.6-4.7) mg/dL Magnesium (1.8-2.4) mg/dL Ferritin (26-388) ng/mL > 2000 H Total Bilirubin (0.2-1.0) mg/dL 0.7 Conjugated Bilirubin (0.0-0.2) mg/dL AST (15-37) U/L 148 H ALT (16-63) U/L 78 H Alkaline Phosphatase (46-116) U/L 48 Creatine Kinase (39-308) U/L 880 H Troponin I (<0.06) ng/mL C-Reactive Protein (0.0-0.3) mg/dL 4.44 H NT-Pro-B Natriuret Pep (<300) pg/mL Total Protein (6.4-8.2) g/dL 7.1 Albumin (3.4-5.0) g/dL 2.3 L 25-OH Vitamin D Total (30-100) ng/mL Procalcitonin ng/mL Urine Color (Yellow) Urine Clarity (Clear) Urine pH (5-8) Ur Specific [place] (1.005-1.025) Urine Protein (Negative) mg/dL Urine Ketones (Negative) mg/dL Urine Blood (Negative) Urine Nitrite (Negative) Urine Bilirubin (Negative) Urine Urobilinogen (Up TO 0.2) EU/dL Ur Leukocyte Esterase (Negative) Urine RBC (0-2) HPF Urine WBC (0-5) HPF Ur Epithelial Cells (Negative) HPF Urine Crystals (Negative) HPF Urine Bacteria (Negative) HPF Urine Casts (Negative) LPF Urine Mucus (Negative) Ur Culture Indicated? Urine Glucose (Negative) mg/dL COVID-19 Source SARS-CoV-2 (PCR) (Negative) Hepatitis A IgM Ab (Negative) Hep Bs Antigen (Negative) Hep B Core Total Ab (Negative) Hepatitis C Antibody (Negative) HIV 1&2 Ag/Ab, 4th Gen (Negative) Ur Strep pneumoniae Ag (Negative) Patient ABO/Rh Range/Units 12/15/20 12/16/20 12/16/20 07:00 06:45 06:45 WBC (4.4-10.8) 10^3/uL 7.15 4.32 L D RBC (4.36-5.78) 10^6/uL 4.65 4.61 Hgb (13.5-17.5) g/dL 13.8 13.9 Hct (40.0-50.0) % 41.7 41.6 MCV (80-95) fL 89.7 90.2 MCH (27.0-33.0) pg 29.7 30.2 MCHC (32.0-36.0) % 33.1 33.4 RDW (11.8-14.1) % 12.0 11.9 Plt Count (130-400) 10^3/uL 455 H 511 H MPV (8.0-11.0) fL 9.1 8.6 Immature Gran % 0.6 0.5 Neutrophils % 84.3 78.9 Band Neutrophils % Lymphocytes % 11.0 15.3 Atypical Lymphs % Monocytes % 2.4 3.7 Eosinophils % 1.7 1.4 Basophils % 0.0 0.2 Nucleated RBC % % 0 0 Absolute Neutrophils (1.2-6.7) 10^3/uL 6.03 3.41 Absolute Lymphocytes (1.2-3.4) 10^3/uL 0.79 L 0.66 L Absolute Monocytes (0.1-0.8) 10^3/uL 0.17 0.16 Absolute Eosinophils (0.0-0.7) 10^3/uL 0.12 0.06 Absolute Basophils (0.0-0.2) 10^3/uL 0.00 0.01 RBC Morphology PT (9.3-11.0) sec INR (0.9-1.1) D-Dimer (<500) ng/mlFEU VBG Lactate (0.6-1.4) mmol/L Sodium (136-145) mmol/L 138 Potassium (3.5-5.1) mmol/L 4.5 Chloride (98-107) mmol/L 103 Carbon Dioxide (21.0-32.0) mmol/L 30.6 Anion Gap (3-11) mmol/L 4.4 BUN (7-18) mg/dL 23 H Creatinine (0.70-1.30) mg/dL 0.8 Estimated GFR/1.73 m2 (mL/min/1.73m2) >= 60.00 Glucose (74-106) mg/dL 107 H Calcium (8.5-10.1) mg/dL 8.7 Phosphorus (2.6-4.7) mg/dL Magnesium (1.8-2.4) mg/dL Ferritin (26-388) ng/mL > 2000 H Total Bilirubin (0.2-1.0) mg/dL 0.6 Conjugated Bilirubin (0.0-0.2) mg/dL AST (15-37) U/L 136 H ALT (16-63) U/L 81 H Alkaline Phosphatase (46-116) U/L 49 Creatine Kinase (39-308) U/L Troponin I (<0.06) ng/mL C-Reactive Protein (0.0-0.3) mg/dL 3.03 H NT-Pro-B Natriuret Pep (<300) pg/mL Total Protein (6.4-8.2) g/dL 7.2 Albumin (3.4-5.0) g/dL 2.2 L 25-OH Vitamin D Total (30-100) ng/mL Procalcitonin ng/mL Urine Color (Yellow) Urine Clarity (Clear) Urine pH (5-8) Ur Specific [place] (1.005-1.025) Urine Protein (Negative) mg/dL Urine Ketones (Negative) mg/dL Urine Blood (Negative) Urine Nitrite (Negative) Urine Bilirubin (Negative) Urine Urobilinogen (Up TO 0.2) EU/dL Ur Leukocyte Esterase (Negative) Urine RBC (0-2) HPF Urine WBC (0-5) HPF Ur Epithelial Cells (Negative) HPF Urine Crystals (Negative) HPF Urine Bacteria (Negative) HPF Urine Casts (Negative) LPF Urine Mucus (Negative) Ur Culture Indicated? Urine Glucose (Negative) mg/dL COVID-19 Source SARS-CoV-2 (PCR) (Negative) Hepatitis A IgM Ab (Negative) Hep Bs Antigen (Negative) Hep B Core Total Ab (Negative) Hepatitis C Antibody (Negative) HIV 1&2 Ag/Ab, 4th Gen (Negative) Ur Strep pneumoniae Ag (Negative) Patient ABO/Rh Range/Units 12/16/20 12/17/20 12/17/20 06:45 06:48 06:48 WBC (4.4-10.8) 10^3/uL 5.28 RBC (4.36-5.78) 10^6/uL 4.67 Hgb (13.5-17.5) g/dL 14.0 Hct (40.0-50.0) % 41.9 MCV (80-95) fL 89.7 MCH (27.0-33.0) pg 30.0 MCHC (32.0-36.0) % 33.4 RDW (11.8-14.1) % 11.9 Plt Count (130-400) 10^3/uL 565 H MPV (8.0-11.0) fL 9.0 Immature Gran % 0.6 Neutrophils % 76.8 Band Neutrophils % Lymphocytes % 15.0 Atypical Lymphs % Monocytes % 4.0 Eosinophils % 3.6 Basophils % 0.0 Nucleated RBC % % 0 Absolute Neutrophils (1.2-6.7) 10^3/uL 4.06 Absolute Lymphocytes (1.2-3.4) 10^3/uL 0.79 L Absolute Monocytes (0.1-0.8) 10^3/uL 0.21 Absolute Eosinophils (0.0-0.7) 10^3/uL 0.19 Absolute Basophils (0.0-0.2) 10^3/uL 0.00 RBC Morphology PT (9.3-11.0) sec INR (0.9-1.1) D-Dimer (<500) ng/mlFEU 1125 H VBG Lactate (0.6-1.4) mmol/L Sodium (136-145) mmol/L 137 Potassium (3.5-5.1) mmol/L 4.5 Chloride (98-107) mmol/L 102 Carbon Dioxide (21.0-32.0) mmol/L 28.7 Anion Gap (3-11) mmol/L 6.3 BUN (7-18) mg/dL 25 H Creatinine (0.70-1.30) mg/dL 0.8 Estimated GFR/1.73 m2 (mL/min/1.73m2) >= 60.00 Glucose (74-106) mg/dL 103 Calcium (8.5-10.1) mg/dL 9.0 Phosphorus (2.6-4.7) mg/dL Magnesium (1.8-2.4) mg/dL Ferritin (26-388) ng/mL > 2000 H Total Bilirubin (0.2-1.0) mg/dL 0.7 Conjugated Bilirubin (0.0-0.2) mg/dL AST (15-37) U/L 98 H ALT (16-63) U/L 79 H Alkaline Phosphatase (46-116) U/L 54 Creatine Kinase (39-308) U/L Troponin I (<0.06) ng/mL C-Reactive Protein (0.0-0.3) mg/dL 1.96 H NT-Pro-B Natriuret Pep (<300) pg/mL Total Protein (6.4-8.2) g/dL 7.1 Albumin (3.4-5.0) g/dL 2.3 L 25-OH Vitamin D Total (30-100) ng/mL Procalcitonin ng/mL Urine Color (Yellow) Urine Clarity (Clear) Urine pH (5-8) Ur Specific [place] (1.005-1.025) Urine Protein (Negative) mg/dL Urine Ketones (Negative) mg/dL Urine Blood (Negative) Urine Nitrite (Negative) Urine Bilirubin (Negative) Urine Urobilinogen (Up TO 0.2) EU/dL Ur Leukocyte Esterase (Negative) Urine RBC (0-2) HPF Urine WBC (0-5) HPF Ur Epithelial Cells (Negative) HPF Urine Crystals (Negative) HPF Urine Bacteria (Negative) HPF Urine Casts (Negative) LPF Urine Mucus (Negative) Ur Culture Indicated? Urine Glucose (Negative) mg/dL COVID-19 Source SARS-CoV-2 (PCR) (Negative) Hepatitis A IgM Ab (Negative) Hep Bs Antigen (Negative) Hep B Core Total Ab (Negative) Hepatitis C Antibody (Negative) HIV 1&2 Ag/Ab, 4th Gen (Negative) Ur Strep pneumoniae Ag (Negative) Patient ABO/Rh Range/Units 12/17/20 12/18/20 12/18/20 06:48 06:30 06:30 WBC (4.4-10.8) 10^3/uL 7.65 D RBC (4.36-5.78) 10^6/uL 4.55 Hgb (13.5-17.5) g/dL 13.7 Hct (40.0-50.0) % 40.5 MCV (80-95) fL 89.0 MCH (27.0-33.0) pg 30.1 MCHC (32.0-36.0) % 33.8 RDW (11.8-14.1) % 11.8 Plt Count (130-400) 10^3/uL 566 H MPV (8.0-11.0) fL 9.4 Immature Gran % 0.8 Neutrophils % 74.8 Band Neutrophils % Lymphocytes % 17.0 Atypical Lymphs % Monocytes % 2.7 Eosinophils % 4.6 Basophils % 0.1 Nucleated RBC % % 0 Absolute Neutrophils (1.2-6.7) 10^3/uL 5.72 Absolute Lymphocytes (1.2-3.4) 10^3/uL 1.30 Absolute Monocytes (0.1-0.8) 10^3/uL 0.21 Absolute Eosinophils (0.0-0.7) 10^3/uL 0.35 Absolute Basophils (0.0-0.2) 10^3/uL 0.01 RBC Morphology PT (9.3-11.0) sec INR (0.9-1.1) D-Dimer (<500) ng/mlFEU 954 H VBG Lactate (0.6-1.4) mmol/L Sodium (136-145) mmol/L 137 Potassium (3.5-5.1) mmol/L 4.2 Chloride (98-107) mmol/L 102 Carbon Dioxide (21.0-32.0) mmol/L 27.8 Anion Gap (3-11) mmol/L 7.2 BUN (7-18) mg/dL 20 H Creatinine (0.70-1.30) mg/dL 0.9 Estimated GFR/1.73 m2 (mL/min/1.73m2) >= 60.00 Glucose (74-106) mg/dL 84 Calcium (8.5-10.1) mg/dL 9.1 Phosphorus (2.6-4.7) mg/dL Magnesium (1.8-2.4) mg/dL 2.3 Ferritin (26-388) ng/mL > 2000 H Total Bilirubin (0.2-1.0) mg/dL 0.6 Conjugated Bilirubin (0.0-0.2) mg/dL 0.2 AST (15-37) U/L 84 H ALT (16-63) U/L 73 H Alkaline Phosphatase (46-116) U/L 54 Creatine Kinase (39-308) U/L Troponin I (<0.06) ng/mL C-Reactive Protein (0.0-0.3) mg/dL 1.15 H NT-Pro-B Natriuret Pep (<300) pg/mL Total Protein (6.4-8.2) g/dL 6.8 Albumin (3.4-5.0) g/dL 2.3 L 25-OH Vitamin D Total (30-100) ng/mL Procalcitonin ng/mL Urine Color (Yellow) Urine Clarity (Clear) Urine pH (5-8) Ur Specific [place] (1.005-1.025) Urine Protein (Negative) mg/dL Urine Ketones (Negative) mg/dL Urine Blood (Negative) Urine Nitrite (Negative) Urine Bilirubin (Negative) Urine Urobilinogen (Up TO 0.2) EU/dL Ur Leukocyte Esterase (Negative) Urine RBC (0-2) HPF Urine WBC (0-5) HPF Ur Epithelial Cells (Negative) HPF Urine Crystals (Negative) HPF Urine Bacteria (Negative) HPF Urine Casts (Negative) LPF Urine Mucus (Negative) Ur Culture Indicated? Urine Glucose (Negative) mg/dL COVID-19 Source SARS-CoV-2 (PCR) (Negative) Hepatitis A IgM Ab (Negative) Hep Bs Antigen (Negative) Hep B Core Total Ab (Negative) Hepatitis C Antibody (Negative) HIV 1&2 Ag/Ab, 4th Gen (Negative) Ur Strep pneumoniae Ag (Negative) Patient ABO/Rh Range/Units 12/18/20 12/19/20 12/19/20 06:30 06:00 06:00 WBC (4.4-10.8) 10^3/uL RBC (4.36-5.78) 10^6/uL Hgb (13.5-17.5) g/dL Hct (40.0-50.0) % MCV (80-95) fL MCH (27.0-33.0) pg MCHC (32.0-36.0) % RDW (11.8-14.1) % Plt Count (130-400) 10^3/uL MPV (8.0-11.0) fL Immature Gran % Neutrophils % Band Neutrophils % Lymphocytes % Atypical Lymphs % Monocytes % Eosinophils % Basophils % Nucleated RBC % % Absolute Neutrophils (1.2-6.7) 10^3/uL Absolute Lymphocytes (1.2-3.4) 10^3/uL Absolute Monocytes (0.1-0.8) 10^3/uL Absolute Eosinophils (0.0-0.7) 10^3/uL Absolute Basophils (0.0-0.2) 10^3/uL RBC Morphology PT (9.3-11.0) sec INR (0.9-1.1) D-Dimer (<500) ng/mlFEU 998 H VBG Lactate (0.6-1.4) mmol/L Sodium (136-145) mmol/L 138 Potassium (3.5-5.1) mmol/L 4.8 Chloride (98-107) mmol/L 103 Carbon Dioxide (21.0-32.0) mmol/L 31.5 Anion Gap (3-11) mmol/L 3.5 BUN (7-18) mg/dL 20 H Creatinine (0.70-1.30) mg/dL 0.7 Estimated GFR/1.73 m2 (mL/min/1.73m2) >= 60.00 Glucose (74-106) mg/dL 93 Calcium (8.5-10.1) mg/dL 8.5 Phosphorus (2.6-4.7) mg/dL Magnesium (1.8-2.4) mg/dL 2.3 Ferritin (26-388) ng/mL > 2000 H Total Bilirubin (0.2-1.0) mg/dL 0.5 Conjugated Bilirubin (0.0-0.2) mg/dL 0.2 AST (15-37) U/L 54 H ALT (16-63) U/L 64 H Alkaline Phosphatase (46-116) U/L 52 Creatine Kinase (39-308) U/L Troponin I (<0.06) ng/mL C-Reactive Protein (0.0-0.3) mg/dL 2.10 H NT-Pro-B Natriuret Pep (<300) pg/mL Total Protein (6.4-8.2) g/dL 5.8 L Albumin (3.4-5.0) g/dL 2.2 L 25-OH Vitamin D Total (30-100) ng/mL Procalcitonin ng/mL < 0.1 Urine Color (Yellow) Urine Clarity (Clear) Urine pH (5-8) Ur Specific [place] (1.005-1.025) Urine Protein (Negative) mg/dL Urine Ketones (Negative) mg/dL Urine Blood (Negative) Urine Nitrite (Negative) Urine Bilirubin (Negative) Urine Urobilinogen (Up TO 0.2) EU/dL Ur Leukocyte Esterase (Negative) Urine RBC (0-2) HPF Urine WBC (0-5) HPF Ur Epithelial Cells (Negative) HPF Urine Crystals (Negative) HPF Urine Bacteria (Negative) HPF Urine Casts (Negative) LPF Urine Mucus (Negative) Ur Culture Indicated? Urine Glucose (Negative) mg/dL COVID-19 Source SARS-CoV-2 (PCR) (Negative) Hepatitis A IgM Ab (Negative) Hep Bs Antigen (Negative) Hep B Core Total Ab (Negative) Hepatitis C Antibody (Negative) HIV 1&2 Ag/Ab, 4th Gen (Negative) Ur Strep pneumoniae Ag (Negative) Patient ABO/Rh Range/Units 12/19/20 12/19/20 12/20/20 06:00 06:00 07:10 WBC (4.4-10.8) 10^3/uL 5.91 RBC (4.36-5.78) 10^6/uL 4.14 L Hgb (13.5-17.5) g/dL 12.6 L Hct (40.0-50.0) % 37.6 L MCV (80-95) fL 90.8 MCH (27.0-33.0) pg 30.4 MCHC (32.0-36.0) % 33.5 RDW (11.8-14.1) % 11.8 Plt Count (130-400) 10^3/uL 479 H MPV (8.0-11.0) fL 9.5 Immature Gran % 1.2 Neutrophils % 68.8 Band Neutrophils % Lymphocytes % 20.5 Atypical Lymphs % Monocytes % 4.9 Eosinophils % 4.4 Basophils % 0.2 Nucleated RBC % % 0 Absolute Neutrophils (1.2-6.7) 10^3/uL 4.07 Absolute Lymphocytes (1.2-3.4) 10^3/uL 1.21 Absolute Monocytes (0.1-0.8) 10^3/uL 0.29 Absolute Eosinophils (0.0-0.7) 10^3/uL 0.26 Absolute Basophils (0.0-0.2) 10^3/uL 0.01 RBC Morphology PT (9.3-11.0) sec 10.6 INR (0.9-1.1) 1.1 D-Dimer (<500) ng/mlFEU 855 H VBG Lactate (0.6-1.4) mmol/L Sodium (136-145) mmol/L 140 Potassium (3.5-5.1) mmol/L 4.7 Chloride (98-107) mmol/L 103 Carbon Dioxide (21.0-32.0) mmol/L 30.5 Anion Gap (3-11) mmol/L 6.5 BUN (7-18) mg/dL 21 H Creatinine (0.70-1.30) mg/dL 0.8 Estimated GFR/1.73 m2 (mL/min/1.73m2) >= 60.00 Glucose (74-106) mg/dL 96 Calcium (8.5-10.1) mg/dL 9.0 Phosphorus (2.6-4.7) mg/dL Magnesium (1.8-2.4) mg/dL 2.5 H Ferritin (26-388) ng/mL > 2000 H Total Bilirubin (0.2-1.0) mg/dL 0.5 Conjugated Bilirubin (0.0-0.2) mg/dL 0.2 AST (15-37) U/L 66 H ALT (16-63) U/L 93 H Alkaline Phosphatase (46-116) U/L 56 Creatine Kinase (39-308) U/L Troponin I (<0.06) ng/mL C-Reactive Protein (0.0-0.3) mg/dL 2.11 H NT-Pro-B Natriuret Pep (<300) pg/mL Total Protein (6.4-8.2) g/dL 6.5 Albumin (3.4-5.0) g/dL 2.5 L 25-OH Vitamin D Total (30-100) ng/mL Procalcitonin ng/mL Urine Color (Yellow) Urine Clarity (Clear) Urine pH (5-8) Ur Specific [place] (1.005-1.025) Urine Protein (Negative) mg/dL Urine Ketones (Negative) mg/dL Urine Blood (Negative) Urine Nitrite (Negative) Urine Bilirubin (Negative) Urine Urobilinogen (Up TO 0.2) EU/dL Ur Leukocyte Esterase (Negative) Urine RBC (0-2) HPF Urine WBC (0-5) HPF Ur Epithelial Cells (Negative) HPF Urine Crystals (Negative) HPF Urine Bacteria (Negative) HPF Urine Casts (Negative) LPF Urine Mucus (Negative) Ur Culture Indicated? Urine Glucose (Negative) mg/dL COVID-19 Source SARS-CoV-2 (PCR) (Negative) Hepatitis A IgM Ab (Negative) Hep Bs Antigen (Negative) Hep B Core Total Ab (Negative) Hepatitis C Antibody (Negative) HIV 1&2 Ag/Ab, 4th Gen (Negative) Ur Strep pneumoniae Ag (Negative) Patient ABO/Rh Range/Units 12/20/20 12/20/20 12/21/20 07:10 07:10 07:15 WBC (4.4-10.8) 10^3/uL 8.91 D RBC (4.36-5.78) 10^6/uL 4.49 Hgb (13.5-17.5) g/dL 13.6 Hct (40.0-50.0) % 41.0 MCV (80-95) fL 91.3 MCH (27.0-33.0) pg 30.3 MCHC (32.0-36.0) % 33.2 RDW (11.8-14.1) % 11.7 L Plt Count (130-400) 10^3/uL 515 H MPV (8.0-11.0) fL 8.8 Immature Gran % 1.3 Neutrophils % 72.2 Band Neutrophils % Lymphocytes % 18.7 Atypical Lymphs % Monocytes % 5.7 Eosinophils % 2.0 Basophils % 0.1 Nucleated RBC % % 0 Absolute Neutrophils (1.2-6.7) 10^3/uL 6.43 Absolute Lymphocytes (1.2-3.4) 10^3/uL 1.67 Absolute Monocytes (0.1-0.8) 10^3/uL 0.51 Absolute Eosinophils (0.0-0.7) 10^3/uL 0.18 Absolute Basophils (0.0-0.2) 10^3/uL 0.01 RBC Morphology PT (9.3-11.0) sec 10.5 INR (0.9-1.1) 1.0 D-Dimer (<500) ng/mlFEU 971 H VBG Lactate (0.6-1.4) mmol/L Sodium (136-145) mmol/L 140 Potassium (3.5-5.1) mmol/L 4.3 Chloride (98-107) mmol/L 104 Carbon Dioxide (21.0-32.0) mmol/L 30.4 Anion Gap (3-11) mmol/L 5.6 BUN (7-18) mg/dL 21 H Creatinine (0.70-1.30) mg/dL 0.8 Estimated GFR/1.73 m2 (mL/min/1.73m2) >= 60.00 Glucose (74-106) mg/dL 79 Calcium (8.5-10.1) mg/dL 9.0 Phosphorus (2.6-4.7) mg/dL 4.2 Magnesium (1.8-2.4) mg/dL 2.3 Ferritin (26-388) ng/mL > 2000 H Total Bilirubin (0.2-1.0) mg/dL 0.4 Conjugated Bilirubin (0.0-0.2) mg/dL 0.1 AST (15-37) U/L 52 H ALT (16-63) U/L 90 H Alkaline Phosphatase (46-116) U/L 52 Creatine Kinase (39-308) U/L Troponin I (<0.06) ng/mL C-Reactive Protein (0.0-0.3) mg/dL 0.75 H NT-Pro-B Natriuret Pep (<300) pg/mL Total Protein (6.4-8.2) g/dL 6.7 Albumin (3.4-5.0) g/dL 2.3 L 25-OH Vitamin D Total (30-100) ng/mL Procalcitonin ng/mL Urine Color (Yellow) Urine Clarity (Clear) Urine pH (5-8) Ur Specific [place] (1.005-1.025) Urine Protein (Negative) mg/dL Urine Ketones (Negative) mg/dL Urine Blood (Negative) Urine Nitrite (Negative) Urine Bilirubin (Negative) Urine Urobilinogen (Up TO 0.2) EU/dL Ur Leukocyte Esterase (Negative) Urine RBC (0-2) HPF Urine WBC (0-5) HPF Ur Epithelial Cells (Negative) HPF Urine Crystals (Negative) HPF Urine Bacteria (Negative) HPF Urine Casts (Negative) LPF Urine Mucus (Negative) Ur Culture Indicated? Urine Glucose (Negative) mg/dL COVID-19 Source SARS-CoV-2 (PCR) (Negative) Hepatitis A IgM Ab (Negative) Hep Bs Antigen (Negative) Hep B Core Total Ab (Negative) Hepatitis C Antibody (Negative) HIV 1&2 Ag/Ab, 4th Gen (Negative) Ur Strep pneumoniae Ag (Negative) Patient ABO/Rh Range/Units 12/21/20 12/21/20 07:15 07:15 WBC (4.4-10.8) 10^3/uL 9.72 RBC (4.36-5.78) 10^6/uL 4.19 L Hgb (13.5-17.5) g/dL 13.1 L Hct (40.0-50.0) % 38.8 L MCV (80-95) fL 92.6 MCH (27.0-33.0) pg 31.3 MCHC (32.0-36.0) % 33.8 RDW (11.8-14.1) % 11.9 Plt Count (130-400) 10^3/uL 469 H MPV (8.0-11.0) fL 9.0 Immature Gran % 1.7 Neutrophils % 68.2 Band Neutrophils % Lymphocytes % 20.6 Atypical Lymphs % Monocytes % 7.5 Eosinophils % 1.7 Basophils % 0.3 Nucleated RBC % % 0 Absolute Neutrophils (1.2-6.7) 10^3/uL 6.62 Absolute Lymphocytes (1.2-3.4) 10^3/uL 2.00 Absolute Monocytes (0.1-0.8) 10^3/uL 0.73 Absolute Eosinophils (0.0-0.7) 10^3/uL 0.17 Absolute Basophils (0.0-0.2) 10^3/uL 0.03 RBC Morphology PT (9.3-11.0) sec 10.4 INR (0.9-1.1) 1.0 D-Dimer (<500) ng/mlFEU 801 H VBG Lactate (0.6-1.4) mmol/L Sodium (136-145) mmol/L Potassium (3.5-5.1) mmol/L Chloride (98-107) mmol/L Carbon Dioxide (21.0-32.0) mmol/L Anion Gap (3-11) mmol/L BUN (7-18) mg/dL Creatinine (0.70-1.30) mg/dL Estimated GFR/1.73 m2 (mL/min/1.73m2) Glucose (74-106) mg/dL Calcium (8.5-10.1) mg/dL Phosphorus (2.6-4.7) mg/dL Magnesium (1.8-2.4) mg/dL Ferritin (26-388) ng/mL Total Bilirubin (0.2-1.0) mg/dL Conjugated Bilirubin (0.0-0.2) mg/dL AST (15-37) U/L ALT (16-63) U/L Alkaline Phosphatase (46-116) U/L Creatine Kinase (39-308) U/L Troponin I (<0.06) ng/mL C-Reactive Protein (0.0-0.3) mg/dL NT-Pro-B Natriuret Pep (<300) pg/mL Total Protein (6.4-8.2) g/dL Albumin (3.4-5.0) g/dL 25-OH Vitamin D Total (30-100) ng/mL Procalcitonin ng/mL Urine Color (Yellow) Urine Clarity (Clear) Urine pH (5-8) Ur Specific [place] (1.005-1.025) Urine Protein (Negative) mg/dL Urine Ketones (Negative) mg/dL Urine Blood (Negative) Urine Nitrite (Negative) Urine Bilirubin (Negative) Urine Urobilinogen (Up TO 0.2) EU/dL Ur Leukocyte Esterase (Negative) Urine RBC (0-2) HPF Urine WBC (0-5) HPF Ur Epithelial Cells (Negative) HPF Urine Crystals (Negative) HPF Urine Bacteria (Negative) HPF Urine Casts (Negative) LPF Urine Mucus (Negative) Ur Culture Indicated? Urine Glucose (Negative) mg/dL COVID-19 Source SARS-CoV-2 (PCR) (Negative) Hepatitis A IgM Ab (Negative) Hep Bs Antigen (Negative) Hep B Core Total Ab (Negative) Hepatitis C Antibody (Negative) HIV 1&2 Ag/Ab, 4th Gen (Negative) Ur Strep pneumoniae Ag (Negative) Patient ABO/Rh Assessment and Plan Assessment and plan (1) Bronchopleural fistula: Status: Acute (2) Acute respiratory failure with hypoxia: Status: Acute (3) COVID-19: Status: Acute (4) Pneumothorax, left: Status: Acute Assessment and plan: This is a 40 yo man with COVID who ultimately had a pneumothorax in the setting of cough and vomiting and positive pressure therapy. He no longer has an air leak and had his chest tube removed. This was a prolonged recovery and represents a small BPF that ultimately has healed. He had his chest tube removed today by surgery. His COVID has also significantly improved and he no longer requires precautions. He is on room air and can likely be discharged tomorrow. I discussed that the patient needs to avoid air travel, scuba diving or other pressurized situations for 3 months. We also discussed the ocean transportation intermediary sequelae of COVID and to seek care from his PCP if he develops these issues. Pneumothorax with BPF - improved and chest tube resolved - avoid scuba diving and air travel for 3 months COVID - significantly improving - off precautions - get COVID vaccine in 2-3 months Hypoxic respiratory failure - recolved
[2020-12-23] MEDS: Benzonatate 100 MG CAP 200 MG PO ×3 (10:35→20:54)
[2020-12-23] MEDS: Dexamethasone 10 MG/ML VIAL 6 MG IVP (10:36)
[2020-12-23] MEDS: Cholecalciferol (Vitamin D3) 1,000 UNIT TAB 2000 UNITS PO (10:36)
[2020-12-23] MEDS: Enoxaparin 30 MG/0.3 ML SYR SC ×2 (10:36→23:31)
[2020-12-23] MEDS: guaiFENesin 600 MG TABCR PO ×2 (10:36→20:53)
[2020-12-23] MEDS: Midodrine 2.5 MG TAB 7.5 MG PO ×3 (10:37→20:52)
[2020-12-23] MEDS: Pantoprazole 40 MG TABCR PO (10:37)
[2020-12-23] MEDS: Metoprolol 12.5 MG TAB PO ×3 (10:37→20:54)
[2020-12-23] MEDS: Zinc Sulfate 220 MG TAB PO (10:40)
[2020-12-23] MEDS: Potassium Chloride 20 MEQ TABCR PO ×2 (10:40→20:54)
[2020-12-23] MEDS: Metoclopramide 10 MG/2 ML VIAL IVP (10:44)
--- NOTE | 2020-12-23 12:18 | W.PM.PROGNOT ---
Date of Service Date of service: 12/23/20 Time of Service: 10:45 Assessment and Plan Assessment and plan (1) Pneumothorax, left: Status: Acute Assessment and plan: -Chest tube clamped since yesterday, strict instructions provided should patient have any acute changes or symptoms regarding recurrence of PTX -2 view chest xray ordered for this afternoon to assess for recurrent PTX, AM x-ray no gross evidence of PTX but difficult to see left lung apex -If no PTX, will consider removing tube as long as patient does not have any clinical changes or decompensation -Limit any positive pressure to airway which will likely result in recurrent PTX -Seen by pulmonology/critical care, appreciate recommendations -Lovenox for DVT ppx -Continue to encourage incentive spirometer use, patient should be on nasal cannula for treatment of PTX regardless of absent hypoxia (2) Bronchopleural fistula: Status: Acute Assessment and plan: -If recurrence of PTX occurs patient may require VATS, will discuss with Dr. Queen if that happens -Already discussed with [facility] pulmonology and interventional pulmonology (3) Rhabdomyolysis: Status: Acute Qualifiers: Rhabdomyolysis type: non-traumatic Qualified Code(s): M62.82 - Rhabdomyolysis (4) Persistent cough: Status: Acute (5) Syncope: Status: Resolved Qualifiers: Syncope type: unspecified Qualified Code(s): R55 - Syncope and collapse (6) Closed head injury: Status: Acute Qualifiers: Encounter type: initial encounter Qualified Code(s): S09.90XA - Unspecified injury of head, initial encounter (7) Rib fracture: Status: Acute Assessment and plan: -As seen on most recent CT left 8th rib fx; continue supportive care, consider lidocaine patch for discomfort Qualifiers: Rib fracture type: single rib Fracture type: closed Laterality: left Encounter type: subsequent encounter Fracture healing: with routine healing Qualified Code(s): S22.32XD - Fracture of one rib, left side, subsequent encounter for fracture with routine healing Subjective Subjective Patient reports: no new complaints, feels better and afebrile; denies nausea, vomiting and shortness of breath Exam Const General: cooperative, healthy appearing, comfortable and no acute distress Chest Chest: crepitus (mild 2/2 subcutaneous air from PTX) and tenderness (left near site of chest tube insertion) rib Resp Effort & Inspection: normal respiratory effort, no audible wheezes, no cough, not labored, no respiratory distress and other (left chest tube in place, clamped last evening, serous drainage in tube) Cardio Rate: regular rate Rhythm: regular rhythm Skin General skin exam: ecchymosis (mild on bridge of nose) Neuro General: patient alert, patient awake and patient oriented x3 Cognition: normal cognition Speech: speech normal Objective Last Vital Signs Temp 98.1 F 12/23/20 09:00 Pulse 116 H 12/23/20 09:00 Resp 18 12/23/20 09:00 BP 111/82 12/23/20 09:00 Pulse Ox 91 L 12/23/20 09:00
[2020-12-23] MEDS: Bisacodyl 5 MG TABEC PO (12:47)
[2020-12-23] MEDS: Docusate Sodium 100 MG CAP PO ×2 (12:47→20:54)
--- NOTE | 2020-12-23 13:29 | TELEFU_ITS ---
Date of service: 12/23/20 Time of Service: 13:30 Nutrition Note NOTE: Mr Song?s weight is stable, with recent non-significant wt loss in the last week. Both dietary staff and nursing report healthy intake of food and ensure supplements (ensure pudding at breakfast and ensure plus at lunch and dinner). No immediate nutrition-related concerns. Will continue to follow for any changes. Edgardo Nam NDTR ? Kitchen Mechanic Time Spent in Nutritional Counseling and Treatment: 5
[2020-12-23] MEDS: Acetaminophen 500 MG TAB 1000 MG PO ×2 (14:18→20:53)
--- NOTE | 2020-12-23 15:22 | NUR.NOTE ---
RN speaks to Dr. Stokes who okays patient being taken off precautions for COVID. RN speaks to Ngozi Byrd who also okays patient being taken off precautions. Presently Dr. Harmon in room who dc's chest tube and bandages wound.Nursing Note:
--- NOTE | 2020-12-23 16:33 | W.PM.PROGNOT ---
Date of Service Date of service: 12/23/20 Time of Service: 16:33 Assessment and Plan Assessment and plan (1) Acute respiratory failure with hypoxia: Status: Acute Assessment and plan: Due to COVID-19 and pneumothorax. Now on RA and asymptomatic. Covid precautions discontinued; OK'd with Pulmonary/critical care Dr Queen. Chest tube d/c'd today. (2) COVID-19: Status: Acute Assessment and plan: As above (3) Pneumothorax, left: Status: Acute Assessment and plan: Resolved. Chest tube d/c'd. (4) Orthostatic hypotension: Status: Acute Assessment and plan: Agree that POTS vs orthostasis of COVID-19 are both possibilities. Had previously stated his heart goes into the 160's with acts such as standing to clean after a BM. On midodrine but also on metoprolol. Continued midodrine. Increase metoprolol to 12.5mg TID. Less symptomatic today. (5) Closed head injury: Status: Acute Assessment and plan: CT head negative. Mental status intact. Qualifiers: Encounter type: initial encounter Qualified Code(s): S09.90XA - Unspecified injury of head, initial encounter (6) Rhabdomyolysis: Status: Resolved Assessment and plan: Resolved. Qualifiers: Rhabdomyolysis type: non-traumatic Qualified Code(s): M62.82 - Rhabdomyolysis (7) Nausea & vomiting: Status: Acute Assessment and plan: While possibly due to COVID-19, canabinoid hyperemesis also needs to be considered. Resolved. Continue prn ativan for both nausea and anxiety. (8) Elevated transaminase level: Status: Acute Assessment and plan: In setting of COVID-19 and rhabdomyolysis. Resolving. (9) DVT prophylaxis: Status: Acute Assessment and plan: Continue SC lovenox (10) Discharge planning issues: Status: Acute Assessment and plan: Full code Plan to D/C tomorrow. Subjective Subjective Patient reports: no new complaints, feels better and afebrile; denies shortness of breath Exam Const General: cooperative, no acute distress and other (sitting in recliner) Nutritional Appearance: obese Orientation: alert and oriented x3 Neck Neck: full ROM and no JVD Chest Chest: other (Left side; chest tube in place.) Resp Effort & Inspection: normal respiratory effort Auscultation: clear to auscultation bilaterally and diminished lung sounds Cardio Rate: regular rate Rhythm: regular rhythm Heart Sounds: S1 normal and S2 normal GI Palpation: soft and nontender Skin General skin exam: no rashes or lesions noted Extrem General: no pedal edema and no calf tenderness Psych Speech and Movement: speech and movement normal Mood: congruent mood Affect: normal affect Objective Last Vital Signs Temp 36.4 C L 12/23/20 14:18 Pulse 105 H 12/23/20 14:16 Resp 23 12/23/20 15:00 BP 117/70 12/23/20 14:16 Pulse Ox 93 12/23/20 15:00
[2020-12-23] MEDS: Protein Nutritional Supplement 16 GM 1 OUNCE PACKET PO (20:51)
[2020-12-23] MEDS: Atorvastatin 40 MG TAB PO (20:53)
[2020-12-23] MEDS: Melatonin 3 MG TAB 6 MG PO (20:53)
[2020-12-23] MEDS: Senna TAB 1 TAB PO (20:54)
[2020-12-24] VITALS (7 sets, daily range): BP systolic 115–137; BP diastolic 60–80; PULSE 60–85; RESP 14–16; TEMP 36.7–37.3; O2SAT 92–96
[2020-12-24] MEDS: Acetaminophen 500 MG TAB 1000 MG PO ×2 (05:47→14:43)
[2020-12-24] MEDS: Benzonatate 100 MG CAP 200 MG PO ×2 (09:39→14:43)
[2020-12-24] MEDS: Bisacodyl 5 MG TABEC PO (09:40)
[2020-12-24] MEDS: Enoxaparin 30 MG/0.3 ML SYR SC (09:41)
[2020-12-24] MEDS: Docusate Sodium 100 MG CAP PO (09:41)
[2020-12-24] MEDS: guaiFENesin 600 MG TABCR PO (09:41)
[2020-12-24] MEDS: Dexamethasone 10 MG/ML VIAL 6 MG IVP (09:41)
[2020-12-24] MEDS: Polyethylene Glycol 3350 17 GM PACKET PO (09:42)
[2020-12-24] MEDS: Metoprolol 12.5 MG TAB PO ×2 (09:42→14:43)
[2020-12-24] MEDS: Pantoprazole 40 MG TABCR PO (09:42)
[2020-12-24] MEDS: Normal Saline Flush 10 ML SYR IVP (09:42)
[2020-12-24] MEDS: Midodrine 2.5 MG TAB 7.5 MG PO ×2 (09:42→14:43)
[2020-12-24] MEDS: Zinc Sulfate 220 MG TAB PO (09:43)
[2020-12-24] MEDS: Protein Nutritional Supplement 16 GM 1 OUNCE PACKET PO ×2 (09:43→14:44)
[2020-12-24] MEDS: Potassium Chloride 20 MEQ TABCR PO (09:43)
--- NOTE | 2020-12-24 10:30 | DI.RAD_ITS ---
Exam(s) XR PORTABLE CHEST AP EXAM: XR PORTABLE CHEST AP CLINICAL HISTORY: follow up pneumothorax; covid pneumonia TECHNIQUE: 2D digital imaging was performed of the chest. One image was obtained. An AP view was ob tained. COMPARISON: CR XR CHEST 2V PA LATERAL from 12/23/2020 FINDINGS: MEDIASTINUM: Normal. HEART: Normal. PULMONARY VASCULATURE: Normal. LUNGS: There are stable bilateral pulmonary infiltrates consistent with pneumonia. PLEURAL SPACE: No pleural effusion or pneumothorax. BONE:Within normal limits for the patient's age. Stable left 8th rib fracture. OTHER FINDINGS:The left chest tube has been removed. Slight interval decrease in the left chest wall subcutaneous emphysema. IMPRESSION: 1. Stable pulmonary infiltrates. 2. Interval removal of the left chest tube. No pneumothorax. DATA REPOSITORY: RADIATION DOSE DELIVERED:
--- NOTE | 2020-12-24 10:35 | DI.VRAD_ITS ---
PROCEDURE INFORMATION: Exam: XR Chest Exam date and time: 12/24/2020 10:00 AM Age: 40 years old Clinical indication: Other: Follow up pneumothorax, covid pneumonia TECHNIQUE: Imaging protocol: XR of the chest. Views: 1 view. COMPARISON: CR XR CHEST 2V PA LATERAL 12/23/2020 1:46 PM FINDINGS: Tubes, catheters and devices: Interval removal of patient's thoracostomy tube. Lungs: Persistent and similar bilateral lung opacities. Pleural spaces: No pneumothorax. Heart/Mediastinum: Similar/stable cardiomediastinal silhouette. Bones/joints: No acute displaced fracture. Soft tissues: Persistent but slightly improved subcutaneous emphysema. IMPRESSION: 1. No pneumothorax. 2. Similar bilateral lung opacities. 3. Slightly improved subcutaneous emphysema. Dictated and Authenticated by: Gilson Osuna MD. Ordering:[facility] Domenico Burgess MD
--- NOTE | 2020-12-24 11:37 | W.PM.PROGNOT ---
Date of Service Date of service: 12/24/20 Time of Service: 11:37 Assessment and Plan Assessment and plan (1) Pneumothorax, left: Status: Acute Assessment and plan: -Resolved, s/p chest tube removal -OK to remove dressing in 48h -Avoid any activities that affect changes in atmospheric pressure for at least 8 weeks -Call to schedule outpatient follow up (2) Rib fracture: Status: Acute Qualifiers: Encounter type: subsequent encounter Rib fracture type: single rib Fracture type: closed Laterality: left Fracture healing: with routine healing Qualified Code(s): S22.32XD - Fracture of one rib, left side, subsequent encounter for fracture with routine healing (3) Rhabdomyolysis: Status: Acute Qualifiers: Rhabdomyolysis type: non-traumatic Qualified Code(s): M62.82 - Rhabdomyolysis (4) Nausea & vomiting: Status: Acute Qualifiers: Vomiting type: unspecified Vomiting Intractability: unspecified Qualified Code(s): R11.2 - Nausea with vomiting, unspecified (5) Acute respiratory failure with hypoxia: Status: Acute (6) COVID-19: Status: Acute Subjective Subjective Patient reports: no new complaints, feels better and tolerating a regular diet Exam Const General: cooperative, healthy appearing, comfortable and no acute distress Chest Chest: crepitus (improved, 2/2 PTX) and tenderness (mild near chest tube site) Resp Effort & Inspection: normal respiratory effort, no audible wheezes, no respiratory distress and not tachypneic Skin General skin exam: ecchymosis (minimal, bridge of nose) Neuro General: patient alert, patient awake and patient oriented x3 Cognition: normal cognition Speech: speech normal Objective Last Vital Signs Temp 99.1 F 12/24/20 09:38 Pulse 85 12/24/20 09:38 Resp 14 12/24/20 09:38 BP 137/80 12/24/20 09:38 Pulse Ox 92 12/24/20 11:11
--- NOTE | 2020-12-24 11:44 | PDOC.CMDIS ---
- If Service Date Differs Date of service: 12/24/20 Time of Service: 11:44 LACE Index Scoring Tool - Questions: Length of Stay (in days): 14 or more Acuity (Admit via E.D.?): Yes E.D. Visits: 1 (Covid) - Answers: Total Score: 11 Risk of Readmission: High Risk Care Management Discharge Reason for Hospitalization: Covid 19 pneumonia, Elevated transaminase level Discharge Plan: Kosta will be discharged home via private vehicle with new home health services through [facility] for PT and SN. (Agency contacted this morning by CM.) He will follow up with his PCP and discharge conley of care. Patient/Family Education Needs: Review discharge instructions, limitations, activity and plan to follow up with community providers. Ask me three.
[2020-12-24] MEDS: Cholecalciferol (Vitamin D3) 1,000 UNIT TAB 2000 UNITS PO (12:30)
--- NOTE | 2020-12-24 14:43 | DSE_ITS ---
Date of service: 12/24/20 Time of Service: 14:43 DS: Diagnosis Discharge Diagnosis (1) Acute respiratory failure with hypoxia: Status: Resolved Asessment and Plan: treated w/ remdesivir, baricitinib, and decadron. complicated by large left sided pneumothorax which was treated w/ chest tube. NIPPV and acapella were discontinued and his oxygenation was able to be maintained on HFNC. His oxygen status improved to the point that he was able to be weaned off oxygen. His pneumothorax resolved and he was discharged in improved condition. 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 (8) Closed head injury: Status: Resolved Asessment and Plan: evaluated w/ CT of the head which showed no acute abnormality (9) Protein-calorie malnutrition, mild: Status: Acute (10) Constipation: Status: Resolved Asessment and Plan: treated w/ laxatives and stool softeners (11) Rhabdomyolysis: Status: Resolved Discharge Plan Disposition Patient Disposition: HOME Condition: Stable Discharge Details Reason For Visit: Gregid-19 Pneumonia Admit Date/Time: 12/09/20 19:05 Admit Provider: Aditya Acuña Attending Provider: Aditya Acuña Primary Care Provider: [facility] Course Hospital Course: 40-year-old male non-smoker with no history of chronic lung or cardiac disease but a remote history of Lyme disease with chronic arthralgias 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 Denies any purulent sputum or hemoptysis. Some mild chest pain only with coughing. Coughing has worsened in the last couple of days. He had a positive Covid test last after being exposed to Covid by his son who is 15 years old. Neither the patient nor his son have been vaccinated. Patient denies any calf pain or swelling or leg swelling. Patient had presented today in the outpatient infusion center to receive monoclonal antibody infusion for his COVID-19 but when infusion nurses found him to be coughing and short of breath and to be mildly hypoxemic he was sent to the emergency department. Evaluation ER included routine labs including a CBC that was unremarkable except for a mild lymphocytopenia, CMP demonstrated hypokalemia of 3.3 with normal re nal function with a creatinine 1.1. LFTs were increased with AST of 271 and ALT of 108 with a normal alkaline phosphatase of 50 and a total bilirubin that was normal at 0.9. CK was elevated greater than 10,000 and his CRP was increased to 15.6. Ferritin was high at 1669. Procalcitonin was not checked but has since been ordered and came back normal at less than 0.1. His D-dimer was elevated at 2000. Patient underwent CT scan of his chest with contrast to rule out a PE. No PE was seen but he has moderate multi lobar atypical pneumonia and small hiatal hernia. Patient was admitted to the med/surg unit and begun on Remdesivir, decadron, and baricitinib. Patient had harsh coughing w/ his pneumonia and placed on cough suppressants. His rhabdomyolysis was treated w/ iv fluids while in the ER but d/t risk of worsening hypoxemia iv fluids were not continued. His rhabdomyolysis resolved despite not receiving further iv fluids. His hypoxemia worsened and he required HFNC and eventually was put on CPAP. On 12/12 his oxygen saturation acutely worsened which led to stat CT scan of his chest which revealed a large left pneumothorax. he was transferred to the ICU and surgical consult was obtained with Dr. Harmon for placement of left chest tube. On 12/13 while in the ICU the patient got up to use the commode and had a syncope spell hitting his head. He sustained a closed head injury w/ facial abrasions. Stat CT of the head was done to rule out a cerebral bleed as the patient was on anticoagulation w/ enoxaparin. CT of his head was negative. The patient was given a fluid bolus but this did not resolve his orthostatic hypotension. He was put on midodrine which helped w/ his orthostasis and his lopressor was resumed for his tachycardia. Pulmonary consult was obtained w/ Dr. Queen. She recommended discontinuation of use of NIPPV in the setting of pneumothorax. Patient was maintained on HFNC until 12/18 when he was able to be downgraded to a plain nasal cannula. Patient's chest tube was trialed off wall suction on 12/18 but due to persistent air leak was placed back on wall suction. On 12/22 his suction to his chest tube was discontinued and placed to water seal. On 12/23 his chest tube did not demonstrate any bubbling w/ forced expiratory maneuvers and PA and lateral CXR was obtained which did not show any residual pneumothorax. Chest tube was removed on 12/23 and patient was on room air w/ normal saturation. Covid precautions were discontinued on 12/23 as the patient had completed his therapy and now was over 14 days since onset of his symptoms. Patient was discharged on 12/24 with instruction to keep his dressing on for 48 hrs and to avoid any air travel or any forced expiratory maneuvers which could cause recurrent pneumothorax. Dr. Queen had spoken w/ pulmonary services regarding placement of endobronchial valve in the event that the pneumothorax did not resolve and that a bronchopleural fistula may have developed in setting of pneumothorax while receiving NIPPV. However, the pneumothorax did resolve and the patient was on room air for couple of days with no recurrence of his pneumothorax. Patient is advised to follow up w/ pulmonary services post discharge. Home Meds and New Rx's Prescriptions: New midodrine 5 mg Tablet 7.5 mg PO TID 30 Days Qty: 135 RF: 0 potassium chloride [Klor-Con M20] 20 mEq Tablet,Er Particles/Crystals 20 meq PO BID 30 Days Qty: 60 RF: 0 benzonatate 100 mg Capsule 200 mg PO TID PRN PRNQty: 30 RF: 0 metoprolol tartrate 25 mg Tablet 12.5 mg PO TID 30 Days Qty: 45 RF: 0 cholecalciferol (vitamin D3) 25 mcg (1,000 unit) Tablet 2,000 unit PO DAILY 30 Days Qty: 60 RF: 0 sennosides [Senokot] 8.6 mg Tablet 8.6 mg PO HS 30 Days Qty: 30 RF: 0 polyethylene glycol 3350 17 gram Powder In Packet 17 g PO DAILY 30 Days RF: 0 pantoprazole 40 mg Tablet,Delayed Release (Dr/Ec) 40 mg PO DAILY@0730 30 Days RF: 0 dexamethasone [Decadron] 6 mg tablet 6 mg PO DAILY Qty: 7 RF: 0 Continued tetracycline 250 mg Capsule 250 mg PO TID RF: 0 Excedrin Extra Strength 250-250-65 mg Tablet 2 tab PO ONCE RF: 0 Discontinued metoprolol tartrate 25 mg Tablet 25 mg PO BID RF: 0 Discharge Instructions Instructions: Spontaneous Pneumothorax (DC), COVID-19 (Coronavirus Disease 2019) (DC), COVID-19: Slow the Coronavirus Spread (DC), Face Coverings (Masks) and COVID-19 (DC) Additional Instructions: Wear a mask whenever you are out in public to avoid being exposed. At present you should no longer be contagious from Covid (your are more than 2 weeks out from the onset of your symptoms). However, you still could get recurrent COVID- 19 and therefore should avoid being exposed by others. You should get a COVID-19 vaccine within the next month to prevent future COVID infection. Although recovery from COVID gives you some immunity, it is not as effective as getting a vaccine. You sustained a pneumothorax (collapsed lung) as a complication of your COVID infection and from needing to be on non-invasive positive pressure ventilation to support your oxygen requirements when you were first admitted. This collapsed lung was treated w/ a chest tube but now the collapsed lung has resolved. You should avoid situtations in which there is increased pressure within your airway. Avoid coughing or sneezing with your mouth or nose closed. You should avoid any air travel for the near future until you are fully recovered and cleared by a investigator internal revenue. You should leave the chest bandage on through the but on Saturday you may remove this and you may wash the skin. cover w/ a fresh dressing of sterile gauze and tape for the next week until skin is healed. If you get sudden onset of shortness of breath or chest pains, seek immediate medical attention as this may be a sign of recurrent collapsed lung. Stand Alone Forms: Nursing Discharge Form Referrals: Nelsy Queen MD [ [facility] STAFF PHYSICIAN] - (call the office for follow up appointment in the next month) Odilon Alejo [Primary Care Provider] - (call the office on Saturday for follow up appointment) Activity:: avoid air travel Equipment/Supplies:: No Equipment Needed Diet:: Normal Diet Discharge Orders Discharge Orders: Discharge Order (Routine); Ordered 12/24/20 Ordered By: Aditya Acuña Other Ambulatory Orders: Basic Metabolic Panel (Routine) Timeframe: 1 Week Facility: [facility] - Location: Laboratory Outpatient Ordered By: Aditya Acuña XR chest 2V PA & lateral (Routine) Timeframe: 4 Weeks Facility: [facility] - Location: DIAGNOSTIC IMAGING Ordered By: Aditya Acuña Liver Panel (Routine) Timeframe: 1 Week Facility: [facility] - Location: Laboratory Outpatient Ordered By: Aditya Acuña C-Reactive Protein (Routine) Timeframe: 1 Week Facility: [facility] - Location: Laboratory Outpatient Ordered By: Aditya Acuña Discharge Data Discharge Date/Time-TO BE ENTERED AT DEPARTURE: 12/24/20 16:01 DS: Summary Time Spent with Patient providing and/or coordinating discharge services: Greater than 30 minutes Status at Discharge Functional status at discharge: independent ambulation Overall status at discharge: patient is progressing back to baseline Mental Status: mental status grossly normal Speech and Movement: speech and movement normal Mood: congruent mood Affect: normal affect Exam Narrative Exam Narrative: Kosta is sitting up in his chair. He is fully dressed and waiting to be discharged. Left chest has a bandage over the site of his prior chest tube insertion Lungs: bibasilar crackles but good aeration of both lungs. No pain or dyspnea w/ deep breathing Heart: RRR Abdomen: soft, nontender. Dale indicated that he is having normal bowel movements (he had been having constipation issues) Psych Mental Status: mental status grossly normal Speech and Movement: speech and movement normal Mood: congruent mood Affect: normal affect DS: Data Vitals/I&O Vitals and I&O: Vital Signs Temperature 37.3 C 12/24/20 09:38 Temperature Source Tympanic 12/24/20 09:38 Pulse 85 12/24/20 09:38 Pulse Rhythm Regular 12/24/20 11:11 Pulse 109 H 12/23/20 16:00 Respiratory Rate 14 12/24/20 09:38 Respiratory Effort 12/24/20 11:11 Respiratory Depth Normal 12/24/20 11:11 Respiratory Pattern Normal 12/24/20 11:11 Blood Pressure 137/80 12/24/20 09:38 Blood Pressure Mean 72 12/24/20 00:07 Blood Pressure Position Sitting 12/23/20 20:20 Pulse Oximetry 92 12/24/20 11:11 Oxygen Delivery Method Room Air 12/24/20 11:11 Oxygen Flow Rate 0 12/24/20 11:11 Fraction of Inspired Oxygen (FIO2) 93 12/23/20 00:15 Pain Level 1 12/24/20 11:11 Comment 12/12/20 08:19 Intake & Output 12/23/20 12/24/20 12/24/20 23:59 11:59 23:59 Intake Total 240 / 360 850 / 850 Output Total 200 / 1250 Balance 40 / -890 850 / 850 Intake: Oral 240 / 360 850 / 850 Output: Urine 200 / 1250 Other: Urine Color Yellow Urine Appearance Clear Clear Urine Odor None Comment Voided in toilet Stool Occult Blood Negative Stool Size Large Stool Characteristics Soft Formed Voiding Methods Urinal Urinal [facility] Active Problem List (Updated 12/26/20 @ 09:34 by Aditya Acuña) Rib fracture (Acute) Nausea & vomiting (Acute) Discharge planning issues (Acute) Persistent cough (Acute) Persistent vomiting in adult patient (Acute) Persistent air leak (Acute) Protein-calorie malnutrition, mild (Acute) Costochondritis (Acute) Orthostatic hypotension (Acute) DVT prophylaxis (Acute) Elevated transaminase level (Acute) Hypoxia (Acute) Medical History (Updated 12/26/20 @ 09:34 by Aditya Acuña) History of Lyme disease History of tachycardia Surgical History (Updated 12/10/20 @ 01:28 by Aditya Acuña) History of arthroscopic knee surgery Right knee meniscus surgery Social History Smoking/Tobacco Use Status: Never Smoking risk assessment performed?: Yes Alcohol Intake: never Drug use: Never Substance use type: does not use Do you feel safe at home: Yes Do you feel safe in your relationship?: Yes
== END 2020-12-24 16:01 | disposition home or self-care (01) | DRG 177 ==
LOC: ER 19:10 → MS 20:22 → ICU 12-12 20:16 → MS 12-24 02:06
PROVIDERS: Internal Medicine; Physician Assistant; Admitting Provider Internal Medicine; Emergency Provider Physician Assistant; PCP Internal Medicine; Visit Provider Internal Medicine
DX: U07.1 COVID-19 (principal); J96.01 Acute respiratory failure with hypoxia; S22.32XA Fracture of one rib, left side, initial encounter for closed fracture; J12.82 Pneumonia due to coronavirus disease 2019; J86.0 Pyothorax with fistula; M62.82 Rhabdomyolysis; A69.20 Lyme disease, unspecified; J93.83 Other pneumothorax; E44.1 Mild protein-calorie malnutrition; R74.01 Elevation of levels of liver transaminase levels; E87.6 Hypokalemia; K44.9 Diaphragmatic hernia without obstruction or gangrene; I95.1 Orthostatic hypotension; W18.39XA Other fall on same level, initial encounter; Y92.230 Patient room in hospital as the place of occurrence of the external cause; S00.31XA Abrasion of nose, initial encounter; K59.00 Constipation, unspecified; S09.90XA Unspecified injury of head, initial encounter; M94.0 Chondrocostal junction syndrome [Tietze]; Z68.32 Body mass index [BMI] 32.0-32.9, adult; R11.15 Cyclical vomiting syndrome unrelated to migraine
CPT/HCPCS: 32551; 36415; 71045; 71250; 71275; 80048; 80053; 80076; 82306; 82550; 84145; 86704; 86709; 86803; 86900; 86901; 87040; 87340; 87389; 87635; 93005; 96361; 96374; 96375; 99285; J1650; 70450; 71046; 81003; 81015; 82728; 83605; 83735; 83880; 84100; 84484; 85025; 85379; 85610; 86140; 87070; 87086; 87205; 87899; 93010; 93970; 94660; 99223; 99232; 99233; 99291; J0131; J1100; J2060; J2270; J2405; J2765; J3490

== ENCOUNTER 2021-01-09 17:32 | Emergency (ER) | payer OTHER, MEDICAID, SELFPAY ==
[2021-01-09 17:34] VITALS: BP 158/72; PULSE 124; RESP 18; TEMP 36.7; O2SAT 94
--- NOTE | 2021-01-09 17:45 | RT.EKG_ITS ---
APPROVED REPORT Exam: Resting ECG Reason for Exam: shortness of breath Patient Location: E HR:107 bpm ECG Measurements Heart Rate 107 AXIS ME 146 P 29 QRSd 79 QRS 14 QT 330 T 5 QTc 441 Conclusion Sinus tachycardia...rate> 99 Probable left atrial enlargement...P >50mS, <-0.10mV V1
--- NOTE | 2021-01-09 17:49 | W.ED.GENAD ---
Discharge Plan Disposition Patient Disposition: HOME Condition: Stable Discharge Details Clinical Impression: Shortness of breath Primary Care Provider: Odilon Alejo ED Provider: Geraldo Cardoso Home Meds and New Rx's Prescriptions: Continued tetracycline 250 mg Capsule 250 mg PO TID RF: 0 Excedrin Extra Strength 250-250-65 mg Tablet 2 tab PO ONCE RF: 0 midodrine 5 mg Tablet 7.5 mg PO TID 30 Days Qty: 135 RF: 0 potassium chloride [Klor-Con M20] 20 mEq Tablet,Er Particles/Crystals 20 meq PO BID 30 Days Qty: 60 RF: 0 benzonatate 100 mg Capsule 200 mg PO TID PRN PRNQty: 30 RF: 0 metoprolol tartrate 25 mg Tablet 12.5 mg PO TID 30 Days Qty: 45 RF: 0 cholecalciferol (vitamin D3) 25 mcg (1,000 unit) Tablet 2,000 unit PO DAILY 30 Days Qty: 60 RF: 0 sennosides [Senokot] 8.6 mg Tablet 8.6 mg PO HS 30 Days Qty: 30 RF: 0 polyethylene glycol 3350 17 gram Powder In Packet 17 g PO DAILY 30 Days RF: 0 pantoprazole 40 mg Tablet,Delayed Release (Dr/Ec) 40 mg PO DAILY@0730 30 Days RF: 0 Discharge Instructions Additional Instructions: your xray shows improvement of your lungs from earlier this month your covid test is negative, your blood work was unremarkable you are suffering from symptoms consistent with long covid and unfortunately can last months follow up with your primary care provider within 1 week if you feel more ill, have worsening shortness of breath or you have severe pain return to the emergency department Medical Decision Making 40 yo male with hx of covid and tested positive at the end of november and was hospitalized, and was complicated by a pneumothorax requiring chest tube placement, unspecified tachycardia for which he takes metoprolol and states he is due now for an oral 50mg dose, comes in with chief complaint of a week of shortness of breath and general malaise. He states he hasn't felt his normal self since d/c and is not sure his shortness of breath ever actually went away but the past week feels more symptomatic. He said he saw his pcp and had a ct chest with iv contrast done at [facility] earlier today and was told it showed end stage covid lungs and was told to come to the hospital so he came here. He denies fevers, chills, chest pain, n/v. He denies smoking alcohol or substance use. He has stable vitals, mildly tachycardic at 120 and not requiring oxygen. He has clear lungs bilaterally, no focal deficits, no murmurs, no rashes. I suspect he could be experiencing long covid symptoms, will try to obtain the radiology report from [facility] and evaluate for other causes of his possible dyspnea including anemia, nstemi, and chf. cta chest report from today at [facility] acquired by fax, and states no PE, lungs have ground glass opacities consistent with findings of covid, no pericardial effusion or other abnormalities, pt stable labs and imaging pending labs unremarkable and is now testing negative for covid, and xray here today shows improvement in infiltrates and suspect his symptoms are from covid and unfortunately is suffering from long covid. He remains stable, sleeping on reassessment and awakens easily. Given lack of fever, leukocytosis and improvement of infiltrates do not feel antibiotics indicated. Discussed with pt and he will follow up with his pcp and return precautions given Differential Diagnosis Differential Diagnosis: covid, anemia, pneumonia Medical Records Medical records reviewed: Yes I reviewed the patient's medical records. Imaging Data Radiologic Study: Attestation: I personally reviewed and interpreted this imaging study as follows: Imaging: X-Ray Radiologist's impression: FINDINGS: Lungs: Low lung volumes. Pulmonary vasculature grossly normal. Patchy peripheral alveolar opacities seen in the mid and basilar pulmonary distributions on the prior exam appear mildly improved, suggesting improving bilateral peripheral infiltrates. Pleural spaces: No pleural effusion. No pneumothorax. Heart/Mediastinum: Heart size normal. No tracheal/mediastinal shift. Bones/joints: No acute osseous abnormalities are identified. IMPRESSION: Mild improvement in bilateral peripheral infiltrates. Lab Data Lab results reviewed: Yes I reviewed the patient's lab results. ECG Data Attestation: I personally reviewed and interpreted this ECG (s) as follows: Prior ECG tracings: available for review Interpretation: sinus tachycardia, rate of 107, on acute st t wave ischemic findings HPI General Date/Time Provider Initiated Documentation: 01/09/21 17:39. Limitations to Documentation: no limitations. Information obtained by: patient. History of Present Illness 40 year old M presents to the emergency department with the chief complaint of shortness of breath, described as moderate, Patient started experiencing this week(s) (1) and it has been constant. No relieving factors improve symptom(s), No exacerbating factors reported . Patient notes weakness. Patient did receive the following treatments prior to arrival, none Related Data Home Medications Medication Instructions Recorded Confirmed Excedrin Extra Strength 2 tab PO ONCE 12/09/20 01/09/21 tetracycline 250 mg PO TID 12/09/20 01/09/21 benzonatate 200 mg PO TID PRN PRN #30 cap 12/24/20 01/09/21 cholecalciferol (vitamin D3) 2,000 unit PO DAILY 30 Days #60 tab 12/24/20 01/09/21 metoprolol tartrate 12.5 mg PO TID 30 Days #45 tab 12/24/20 01/09/21 midodrine 7.5 mg PO TID 30 Days #135 tab 12/24/20 01/09/21 pantoprazole 40 mg PO DAILY@0730 30 Days tab 12/24/20 01/09/21 polyethylene glycol 3350 17 g PO DAILY 30 Days ea 12/24/20 01/09/21 potassium chloride [Klor-Con M20] 20 meq PO BID 30 Days #60 tab 12/24/20 01/09/21 sennosides [Senokot] 8.6 mg PO HS 30 Days #30 tab 12/24/20 01/09/21 Previous Rx's Medication Instructions Recorded benzonatate 200 mg PO TID PRN PRN #30 cap 12/24/20 cholecalciferol (vitamin D3) 2,000 unit PO DAILY 30 Days #60 tab 12/24/20 metoprolol tartrate 12.5 mg PO TID 30 Days #45 tab 12/24/20 midodrine 7.5 mg PO TID 30 Days #135 tab 12/24/20 pantoprazole 40 mg PO DAILY@0730 30 Days tab 12/24/20 polyethylene glycol 3350 17 g PO DAILY 30 Days ea 12/24/20 potassium chloride [Klor-Con M20] 20 meq PO BID 30 Days #60 tab 12/24/20 sennosides [Senokot] 8.6 mg PO HS 30 Days #30 tab 12/24/20 Allergies Allergy/AdvReac Type Severity Reaction Status Date / Time Sulfa (Sulfonamide Allergy Unknown Verified 01/09/21 17:38 Antibiotics) General Stated Complaint: RespSymp JC: 3 Review of Systems All systems reviewed & are unremarkable except as noted in HPI and below Constitutional Constitutional: Denies chills and Denies fever(s) Cardiovascular Cardiovascular: Denies chest pain Respiratory Respiratory: Denies cough Gastrointestinal Gastrointestinal: Denies abdominal pain, Denies nausea and Denies vomiting Musculoskeletal Musculoskeletal: Denies joint swelling Psychiatric Psychiatric: Denies depression [facility] Active Problem List (Updated 01/09/21 @ 19:59 by Geraldo Cardoso MD) Shortness of breath (Acute) Rib fracture (Acute) Nausea & vomiting (Acute) Discharge planning issues (Acute) Persistent cough (Acute) Persistent vomiting in adult patient (Acute) Persistent air leak (Acute) Protein-calorie malnutrition, mild (Acute) Costochondritis (Acute) Orthostatic hypotension (Acute) DVT prophylaxis (Acute) Elevated transaminase level (Acute) Hypoxia (Acute) Medical History (Updated 01/09/21 @ 19:59 by Geraldo Cardoso MD) History of Lyme disease History of tachycardia Surgical History (Updated 12/10/20 @ 01:28 by Aditya Acuña) History of arthroscopic knee surgery Right knee meniscus surgery Social History Smoking/Tobacco Use Status: Never Smoking risk assessment performed?: Yes Alcohol Intake: never Drug use: Never Substance use type: does not use Do you feel safe at home: Yes Do you feel safe in your relationship?: Yes Exam Const General: no acute distress Orientation: alert HENMT Head: normal to inspection Ears: external ears normal General nose exam: external nose normal Mouth: moist mucous membranes Eyes General: appearance normal, both eyes and all related structures Neck Neck: normal visual inspection Resp Effort & Inspection: normal respiratory effort and able to speak in complete sentences Cardio Rate: regular rate Skin General skin exam: no rashes or lesions noted Neuro General: patient alert and patient oriented x3 Extrem General: normal to inspection Psych Mental Status: mental status grossly normal Course Vital Signs Vital signs: Vital Signs Temperature 36.7 C 01/09/21 17:34 Pulse 124 H 01/09/21 17:34 Respiratory Rate 18 01/09/21 17:34 Blood Pressure 158/72 H 01/09/21 17:34 Pulse Oximetry 94 01/09/21 17:34 Temperature 36.7 C 01/09/21 17:34 Temperature Source Oral 01/09/21 17:34 Pulse 124 H 01/09/21 17:34 Respiratory Rate 18 01/09/21 17:34 Blood Pressure 158/72 H 01/09/21 17:34 Pulse Oximetry 94 01/09/21 17:34 Oxygen Delivery Method Room Air 01/09/21 17:34 Oxygen Flow Rate 0 01/09/21 17:34 Pain Level 0 01/09/21 17:34 Lab/Test Results Lab/Test Results: 01/09/21 17:49 Blood Blood Culture - Pending 01/09/21 17:49 Blood Blood Culture - Pending
--- NOTE | 2021-01-09 18:00 | DI.RAD_ITS ---
Exam(s) XR PORTABLE CHEST AP EXAM: XR PORTABLE CHEST AP CLINICAL HISTORY: shortness of breath TECHNIQUE: 2D digital imaging was performed of the chest. One image was obtained. An AP view was ob tained. COMPARISON: CR,XR XR PORTABLE CHEST AP from 12/24/2020 CR,XR XR PORTABLE CHEST AP from 12/24/[address] CTA CHEST W AND/OR WO CONTRAST from 01/09/2021 FINDINGS: MEDIASTINUM: Normal. HEART: Normal. PULMONARY VASCULATURE: Normal. LUNGS: When compared to the prior examination from 12/24/2020 there does appear to be some improvemen t in the bilateral pulmonary infiltrates. PLEURAL SPACE: No pleural effusion or pneumothorax. There is persistent elevation of the right hemidi aphragm. BONE:Within normal limits for the patient's age. OTHER FINDINGS:Normal. IMPRESSION: Improvement in the bilateral pulmonary infiltrates. DATA REPOSITORY: RADIATION DOSE DELIVERED:
[2021-01-09 18:53] LABS: Source Nasal/Nares
[2021-01-09 19:01] LABS: BE (Venous) 2 mmol/L (-2-3); HCO3 (Venous) 26 mmol/L (23-28); O2 Sat (Venous) 97 %; TCO2 (Venous) 23 mmol/L (24-29); pCO2 (Venous) 38 mmHg (41-51); pH (Venous) 7.45 (7.31-7.41); pO2 (Venous) 86 mmHg
[2021-01-09 19:04] LABS: Abs Immature Grans 0.03 10^3/uL (0.0-0.06); Absolute Basophil Count 0.05 10^3/uL (0.0-0.2); Absolute Lymphocyte Count 1.48 10^3/uL (1.2-3.4); Absolute Neutrophil Count 3.43 10^3/uL (1.2-6.7); Basophils % 0.8; Eosinophils % 1.7; HCT 43.7 % (40.0-50.0); HGB 14.4 g/dL (13.5-17.5); Immature Grans % 0.5; Lymphocytes % 25.1; MCH 30.8 pg (27.0-33.0); MCV 93.6 fL (80-95); MPV 8.8 fL (8.0-11.0); Monocytes % 13.6; Neutrophils % 58.3; Nucleated RBC 0 %; Platelet Count 465 10^3/uL (130-400); RBC 4.67 10^6/uL (4.36-5.78); RDW 13.6 % (11.8-14.1); RDW-SD 46.6 fL; WBC 5.89 10^3/uL (4.4-10.8)
[2021-01-09 19:23] LABS: ALT 62 U/L (16-63); AST 26 U/L (15-37); Albumin 3.1 g/dL (3.4-5.0); Alkaline Phosphatase 90 U/L (46-116); Anion Gap 10.4 mmol/L (3-11); BUN 12 mg/dL (7-18); Bilirubin, Total 0.3 mg/dL (0.2-1.0); CO2 26.6 mmol/L (21.0-32.0); CREATININE 0.8 mg/dL (0.70-1.30); Calcium 9.1 mg/dL (8.5-10.1); Chloride 105 mmol/L (98-107); Glucose 111 mg/dL (74-106); Magnesium 2.1 mg/dL (1.8-2.4); NT-proBNP 40 pg/mL (<300); Potassium 3.7 mmol/L (3.5-5.1); Sodium 142 mmol/L (136-145); TSH (W/Ref FT4) 1.59 uIU/mL (0.36-3.74); Total Protein 8.1 g/dL (6.4-8.2)
[2021-01-09 19:26] LABS: Troponin I < 0.05 ng/mL (<0.06)
--- NOTE | 2021-01-09 19:32 | DI.VRAD_ITS ---
PROCEDURE INFORMATION: Exam: XR Chest Exam date and time: 01/09/2021 6:13 PM Age: 40 years old Clinical indication: Shortness of breath TECHNIQUE: Imaging protocol: XR of the chest. Views: 1 view. Total images: 1 COMPARISON: XR PORTABLE CHEST AP 12/24/2020 10:17 AM FINDINGS: Lungs: Low lung volumes. Pulmonary vasculature grossly normal. Patchy peripheral alveolar opacities seen in the mid and basilar pulmonary distributions on the prior exam appear mildly improved, suggesting improving bilateral peripheral infiltrates. Pleural spaces: No pleural effusion. No pneumothorax. Heart/Mediastinum: Heart size normal. No tracheal/mediastinal shift. Bones/joints: No acute osseous abnormalities are identified. IMPRESSION: Mild improvement in bilateral peripheral infiltrates. Dictated and Authenticated by: Hilario Garcia MD. Ordering:PAULA Chow MD
[2021-01-09 19:44] LABS: COVID-19 PCR Negative (Negative)
[2021-01-09 20:20] VITALS: BP 158/72; PULSE 80; RESP 18; TEMP 36.7; O2SAT 94
== END 2021-01-09 20:22 | disposition home or self-care (01) ==
PROVIDERS: Emergency Provider Emergency Medicine; PCP Internal Medicine
DX: R06.02 Shortness of breath (principal); Z86.16 Personal history of COVID-19; R53.81 Other malaise
CPT/HCPCS: 80053; 82805; 87040; 87635; 93005; 99284; 71045; 83735; 83880; 84443; 84484; 85025; 93010

== ENCOUNTER 2021-01-18 00:53 | Outpatient (CLI) | payer OTHER, MEDICAID, SELFPAY ==
--- NOTE | 2021-01-18 12:55 | DI.RAD_ITS ---
Exam(s) XR CHEST 2V PA LATERAL EXAM: XR CHEST 2V PA LATERAL CLINICAL HISTORY: follow up COVID pneumonia; follow up pneumothorax TECHNIQUE: 2D digital imaging was performed of the chest. Three images were obtained. PA and later al views were obtained. COMPARISON: CR XR CHEST 2V PA LATERAL from 12/23/2020 CR XR CHEST 2VW (D) from 01/02/2021 CR,XR XR PORTABLE CHEST AP from 01/09/2021 CR,XR XR PORTABLE CHEST AP from 01/09/2021 FINDINGS: MEDIASTINUM: Normal. HEART: Normal. PULMONARY VASCULATURE: Normal. LUNGS: There are persistent interstitial markings in the lung bases, left greater than right. They a ppear fairly stable compared to the examination from 01/09/2021. No new pulmonary infiltrates are se en. PLEURAL SPACE: No pleural effusion or pneumothorax. BONE:Within normal limits for the patient's age. OTHER FINDINGS:Persistent stable elevation of the right hemidiaphragm. IMPRESSION: 1. Stable appearance of the chest with bilateral basilar interstitial lung markings. This may repres ent residual infection or scarring. 2. No new pulmonary infiltrates. 3. No pneumothorax. DATA REPOSITORY: RADIATION DOSE DELIVERED:
[2021-01-18 14:19] LABS: ALT 54 U/L (16-63); AST 27 U/L (15-37); Albumin 3.2 g/dL (3.4-5.0); Alkaline Phosphatase 86 U/L (46-116); BUN 11 mg/dL (7-18); Bilirubin, Direct 0.1 mg/dL (0.0-0.2); Bilirubin, Total 0.3 mg/dL (0.2-1.0); C-Reactive Protein 0.39 mg/dL (0.0-0.3); CREATININE 0.7 mg/dL (0.70-1.30); Calcium 8.9 mg/dL (8.5-10.1); Chloride 104 mmol/L (98-107); Glucose 97 mg/dL (74-106); Potassium 4.1 mmol/L (3.5-5.1); Sodium 140 mmol/L (136-145); Total Protein 7.1 g/dL (6.4-8.2)
== END 2021-01-18 01:13 ==
PROVIDERS: PCP Internal Medicine; Visit Provider Internal Medicine
DX: Z09 Encounter for follow-up examination after completed treatment for conditions other than malignant neoplasm; Z86.16 Personal history of COVID-19; Z87.01 Personal history of pneumonia (recurrent); Z87.09 Personal history of other diseases of the respiratory system
CPT/HCPCS: 36415; 80048; 80076; 71046; 86140

== ENCOUNTER 2021-02-16 04:30 | Outpatient (CLI) | payer OTHER, SELFPAY ==
--- NOTE | 2021-02-16 15:00 | NS.NUTBLAN_ITS ---
Kosta was referred for nutritional counseling for weight management. 40 year old male 5'9 240 lbs BMI: 35 with hx of Lymes Disease (on abx from june 2020- november 2020), and admitted with covid 19 infection with pneumothorax x 14 days (12/09-12/24/20). PMH: tachicardia. Meds: metoprolol, 2000 IU Vitamin D daily. Recent labs indicate Vitamin D deficient (12/10/20: 27.9) Not working at this time. Lives with 15 year old son. 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 Diet Recall: breakfast sandwich, cereal, juice, roast beef sandwich, crackers, chips, granola bar, chicken, baked potato. 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 Treated with antibiotics for 6 months with no change in symptoms. Since discharge home in mid-December, feeling about the same, now with more SOB s/p covid. To start physical therapy next week. Session today focused on ways to aid in weight loss, increase nutrient intake via diet, reduce inflammation with antioxidants and probiotics. Current meal plan high in simple sugars that contribute to weight gain and inflammation. Reviewed how to follow [id number] kcal meal plan with 100-150 g carbohydrate, 60- 80 g protein with 55-65 g healthy fats. Encouraged lifting weight for muscle regain. May consider checking testosterone level in view of fatigue. No follow up planned at this time. Has contact information and will reach out prn.
== END 2021-02-16 04:31 | disposition home or self-care (01) ==
LOC: DS 04:30
PROVIDERS: PCP Internal Medicine; Visit Provider Dietitian, Registered
DX: Z71.3 Dietary counseling and surveillance (principal); E66.9 Obesity, unspecified; Z86.16 Personal history of COVID-19
CPT/HCPCS: 97802

== ENCOUNTER 2021-05-26 08:42 | Emergency (ER) | payer MEDICAID, SELFPAY ==
[2021-05-26] VITALS (38 sets, daily range): BP systolic 119–149; BP diastolic 67–82; PULSE 64–109; RESP 9–24; TEMP 36.7; O2SAT 91–97
--- NOTE | 2021-05-26 08:30 | RT.EKG_ITS ---
APPROVED REPORT Exam: Resting ECG Reason for Exam: Chest pain Patient Location: E HR:87 bpm ECG Measurements Heart Rate 87 AXIS OK 152 P 3 QRSd 83 QRS 17 QT 358 T 7 QTc 433 Conclusion Sinus rhythm...normal P axis, V-rate 60- 99 sinus rhythm, normal axis, normal intervals, non ischemic
--- NOTE | 2021-05-26 09:12 | W.ED.GENAD ---
Discharge Plan Disposition Patient Disposition: HOME Condition: Improving Discharge Details Chief Complaint: Chest Pain Clinical Impression: Chest pain Primary Care Provider: Odilon Alejo ED Provider: Gerardo Manzano Home Meds and New Rx's Prescriptions: No Action metoprolol succinate 100 mg tablet extended release 24 hr 100 mg PO DAILY 0RF activated charcoal 200 mg Capsule 200 mg PO DAILY 0RF L-Arginine(alpha-ketoglutarat) 350 mg Tablet Extended Release 350 mg PO TID 0RF cholecalciferol (vitamin D3) [Vitamin D3] 25 mcg (1,000 unit) Capsule 1,000 mcg PO DAILY 0RF Probiotic 3 billion cell Capsule 3 cell PO DAILY 0RF Discharge Instructions Instructions: Chest Pain (ED) Additional Instructions: Please keep your appointment with your primary care providers as scheduled. Please return to the emergency department if you develop any worsening symptoms such as chest pain shortness of breath or signs of infection. Medical Decision Making 40-year-old male history of longstanding Covid symptomatology, prior pneumothorax, presents with nonexertional anterior left chest discomfort associated with shortness of breath and right hand sweating. The symptoms began around 7 AM this morning. Patient is resting comfortably currently asymptomatic. Hemodynamically stable nontachycardic not hypoxic. EKG nonischemic. Patient initially refusing labs and testing as he endorses that everything comes back normal however after some discussion encourage patient to allow us to pursue chest x-ray and labs to assess for any cardiopulmonary abnormality such as ACS versus pneumothorax versus pneumonia versus pleural effusion versus CHF versus less likely PE. Labs troponin chest x-ray EKG aspirin close reassessment discharge likely home with return precautions pending results Resting comfortably no acute distress chest pain-free 2 Trope negative nonischemic EKG. Chest x-ray unremarkable. Normal vital signs no hypoxia no tachycardia. Patient also endorses some fullness to his left breast, no palpable deformity, no fluctuance no erythema no induration no warmth no nipple discharge. This was assessed the patient had his chest upon consider some subcutaneous scar tissue or muscle disruption. No respiratory distress. 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 Given home care instructions and return precautions. HPI General Date/Time Provider Initiated Documentation: 05/26/21 08:43. HPI Narrative: 40-year-old male history of Covid requiring ICU level admission, pneumothorax status post chest tube left thorax, presents with recurrent chest pain shortness of breath has been ongoing for several weeks, nonexertional this morning around 7 AM associated with some right hand sweating and mild shortness of breath. Denies history of MD or PE. Has been told he has long Covid. Related Data Home Medications Medication Instructions Recorded Confirmed metoprolol succinate 100 mg 100 mg PO DAILY 02/01/21 05/26/21 tablet,extended release 24 hr activated charcoal 200 mg capsule 200 mg PO DAILY 05/26/21 05/26/21 arginine oxoglurate 350 mg 350 mg PO TID 05/26/21 05/26/21 tablet,extended release (L-Arginine (alpha-ketoglutarate)) cholecalciferol (vitamin D3) 25 1,000 mcg PO DAILY 05/26/21 05/26/21 mcg (1,000 unit) capsule (Vitamin D3) lactobacillus combination no.4 3 3 cell PO DAILY 05/26/21 05/26/21 billion cell capsule (Probiotic) Allergies Allergy/AdvReac Type Severity Reaction Status Date / Time Sulfa (Sulfonamide Allergy Unknown Verified 05/26/21 08:54 Antibiotics) General Stated Complaint: Chest Pain JC: 3 Review of Systems Narrative: Review of Systems Constitutional: negative Eyes: negative ENT: negative Cardiovascular: Chest pain Respiratory: Shortness of breath Gastrointestinal: negative : negative Musculoskeletal: negative Skin: negative Neurologic: negative Psych: negative PFSH All Active Problems (Updated 05/26/21 @ 12:40 by Gerardo Manzano MD) Chest pain (Acute) Shortness of breath (Acute) Rib fracture (Acute) Nausea & vomiting (Acute) Costochondritis (Acute) Orthostatic hypotension (Acute) Medical History (Updated 05/26/21 @ 12:40 by Gerardo Manzano MD) History of Lyme disease History of tachycardia Surgical History (Updated 12/10/20 @ 01:28 by Aditya Acuña) History of arthroscopic knee surgery Right knee meniscus surgery Social History Smoking/Tobacco Use Status: Former Tobacco Use Smoking risk assessment performed?: Yes Alcohol Intake: never Drug use: Never Substance use type: does not use Do you feel safe at home: Yes Do you feel safe in your relationship?: Yes Exam Narrative Exam Narrative: Physical Examination General: alert, awake, cooperative, resting comfortably, no acute distress HEENT: normocephalic, atraumatic; PERRL, EOM intact, conjunctiva normal; no nasal discharge; moist mucous membranes, oral and pharyngeal mucosa normal, tolerating secretions Neck: supple, trachea midline; full ROM Chest: normal to inspection, no crepitus or deformity, well-healed scar to left thorax site of prior chest tube Respiratory: normal respiratory effort, speaking in full sentences, clear to auscultation, no wheezing, rales or rhonchi Cardiac: regular rate, regular rhythm, S1S2 intact, no murmurs rubs or gallops GI: abdomen soft, non-tender, non-distended; no palpable mass or hepatosplenomegaly Skin: no lesions, rashes or trauma appreciated Neuro: AAOx3, normal speech, moving all extremities Psych: Appropriate mood and affect Course Vital Signs Vital signs: Vital Signs Temperature 36.7 C 05/26/21 08:47 Pulse 87 05/26/21 08:47 Respiratory Rate 18 05/26/21 08:47 Blood Pressure 128/75 05/26/21 08:47 Pulse Oximetry 97 05/26/21 08:47 Temperature 36.7 C 05/26/21 08:47 Temperature Source Temporal Artery Scan 05/26/21 08:47 Pulse 87 05/26/21 08:47 Respiratory Rate 16 05/26/21 08:58 Respiratory Effort 05/26/21 08:58 Respiratory Depth Normal 05/26/21 08:58 Respiratory Pattern Normal 05/26/21 08:58 Blood Pressure 128/75 05/26/21 08:47 Blood Pressure Position Sitting 05/26/21 08:47 Pulse Oximetry 97 05/26/21 08:47 Oxygen Delivery Method Room Air 05/26/21 08:47 Oxygen Flow Rate 0 05/26/21 08:47
[2021-05-26] MEDS: Aspirin 325 MG TAB PO (09:15)
[2021-05-26 09:36] LABS: Abs Immature Grans 0.02 10^3/uL (0.0-0.06); Absolute Basophil Count 0.06 10^3/uL (0.0-0.2); Absolute Eosinophil Count 0.11 10^3/uL (0.0-0.7); Absolute Lymphocyte Count 1.47 10^3/uL (1.2-3.4); Absolute Monocyte Count 0.53 10^3/uL (0.1-0.8); Absolute Neutrophil Count 2.44 10^3/uL (1.2-6.7); Basophils % 1.3; Eosinophils % 2.4; HCT 46.5 % (40.0-50.0); HGB 15.8 g/dL (13.5-17.5); Immature Grans % 0.4; Lymphocytes % 31.7; MCV 88.4 fL (80-95); MPV 9.2 fL (8.0-11.0); Monocytes % 11.4; Neutrophils % 52.8; Platelet Count 241 10^3/uL (130-400); RBC 5.26 10^6/uL (4.36-5.78); RDW 12.2 % (11.8-14.1); RDW-SD 39.7 fL; WBC 4.63 10^3/uL (4.4-10.8)
--- NOTE | 2021-05-26 09:51 | DI.RAD_ITS ---
Exam(s) XR PORTABLE CHEST AP EXAM: XR PORTABLE CHEST AP CLINICAL HISTORY: chest pain, long covid, hx chest tube left TECHNIQUE: 2D digital imaging was performed of the chest. One image was obtained. An AP view was ob tained. COMPARISON: CR,XR XR PORTABLE CHEST AP from 01/09/2021 CR XR CHEST 2V PA LATERAL from 01/18/2021 FINDINGS: MEDIASTINUM: Normal. HEART: Normal. PULMONARY VASCULATURE: Normal. LUNGS: Clear. PLEURAL SPACE: No pleural effusion or pneumothorax. BONE:Within normal limits for the patient's age. OTHER FINDINGS:Normal. IMPRESSION: No acute pulmonary findings. DATA REPOSITORY: RADIATION DOSE DELIVERED:
[2021-05-26 09:58] LABS: ALT 65 U/L (16-63); AST 30 U/L (15-37); Albumin 3.8 g/dL (3.4-5.0); Alkaline Phosphatase 84 U/L (46-116); Anion Gap 8.9 mmol/L (3-11); BUN 15 mg/dL (7-18); Bilirubin, Total 0.8 mg/dL (0.2-1.0); CO2 26.1 mmol/L (21.0-32.0); CREATININE 0.9 mg/dL (0.70-1.30); Calcium 9.1 mg/dL (8.5-10.1); Chloride 105 mmol/L (98-107); Glucose 110 mg/dL (74-106); NT-proBNP 11 pg/mL (<300); Potassium 3.9 mmol/L (3.5-5.1); Sodium 140 mmol/L (136-145); Total Protein 7.9 g/dL (6.4-8.2); Troponin I < 50 ng/L (<or=60)
[2021-05-26 12:29] LABS: Troponin I < 50 ng/L (<or=60)
== END 2021-05-26 12:50 | disposition home or self-care (01) ==
PROVIDERS: Emergency Provider Emergency Medicine; PCP Internal Medicine
DX: R07.9 Chest pain, unspecified (principal); R06.02 Shortness of breath; U09.9 Post COVID-19 condition, unspecified
CPT/HCPCS: 36415; 80053; 93005; 99284; 71045; 83880; 84484; 85025; 93010

== ENCOUNTER 2021-07-14 22:32 | Emergency (ER) | payer MEDICAID, SELFPAY ==
[2021-07-14 22:43] VITALS: BP 138/90; PULSE 109; RESP 18; TEMP 38.4; O2SAT 97
[2021-07-14 22:46] VITALS: RESP 18
--- NOTE | 2021-07-14 23:15 | DI.RAD_ITS ---
Exam(s) XR PORTABLE CHEST AP EXAM: XR PORTABLE CHEST AP CLINICAL HISTORY: covid+, hx of pneumothorax, L wheeze. TECHNIQUE: 2D digital imaging was performed. COMPARISON: CR,XR XR PORTABLE CHEST AP from 12/24/2020 CR XR PORTABLE CHEST AP from 05/26/2021 FINDINGS: Single AP portable view. Right hemidiaphragm tenting again noted, unchanged. Heart size is upper normal. The mediastinum is not widened. Lungs are clear. No infiltrates nor obvious pleural effusions. IMPRESSION: No acute pulmonary findings on this single AP portable view of the chest. DATA REPOSITORY: RADIATION DOSE DELIVERED: All CT scans at this facility use at least one of these dose optimization techniques: automated exposure control; mA and/or kV adjustment per patient size (includes targeted e xams where dose is matched to clinical indication); or iterative reconstruction.
--- NOTE | 2021-07-14 23:18 | ED.GENADUL_ITS ---
Discharge Plan Disposition Patient Disposition: HOME Condition: Good Discharge Details Clinical Impression: Reinfection by COVID-19 virus Primary Care Provider: Odilon Alejo ED Provider: Edwin Lovelace Home Meds and New Rx's Prescriptions: No Action metoprolol succinate 100 mg tablet extended release 24 hr 100 mg PO DAILY activated charcoal 200 mg Capsule 200 mg PO DAILY L-Arginine(alpha-ketoglutarat) 350 mg Tablet Extended Release 350 mg PO TID cholecalciferol (vitamin D3) [Vitamin D3] 25 mcg (1,000 unit) Capsule 1,000 mcg PO DAILY Probiotic 3 billion cell Capsule 3 cell PO DAILY Discharge Instructions Instructions: COVID-19 (Coronavirus Disease 2019) (ED) Additional Instructions: At this time you have become reinfected with COVID-19. Your chest x-ray shows no evidence of pneumonia, pneumothorax, or severe COVID-pneumonia. Please continue to monitor your oxygen at home. If it gets below 91% consistently please return immediately for reevaluation. Please drink plenty of fluids at home, I recommend 10 to 12 cups of water or electrolyte solution per day. Please continue to take your [id number] vitamins, you can also take low- dose zinc, melatonin, vitamin D, and B complex vitamins while you are ill. Additionally it is important to continue to take vitamin C supplements. If you notice any worsening of your symptoms, or any new symptoms such as vomiting, diarrhea, fever, chills, shortness of breath, chest pain, numbness, weakness, or fainting , please return immediately to the emergency department for reevaluation. Please follow up with your primary care provider as soon as possible for reassessment and reevaluation. As always, it was a pleasure participating in your medical care today. 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 Patient presents today for reinfection with COVID-19. Patient states that for the last 36 hours he has had flulike symptoms. He denies any change in his chronic cough. He does admit to myalgias, weakness, and fatigue. He did have a fever at home. He did a home COVID test and it was positive. He denies any chest pain or pleuritic chest pain. He denies any hemoptysis. He denies any numbness tingling or weakness. He denies any syncope. He does state that when he sits upright his heart rate goes way out. He has been drinking water at home. He took Tylenol last at 3 PM. No other complaints at this time. No other modifying factors. Of note the patient has not had any COVID-19 immunizations since his last infection, or before his prior infection. Exam demonstrates a well-appearing male, he is febrile, minimally tachycardic. Minimal wheeze in the left upper lung field. I discussed treatment options of the monoclonal antibody infusion versus tach Flovent. Their shared decision- making process, understanding the risks and benefits, and weighing into the fact that his previous COVID-19 infection and its associated severity, he is now chronic underlying lung disease secondary to previous COVID infection, and his history of pot and chronic Lyme disease, patient has elected to start with the monoclonal antibody infusion. We will rehydrate, get a portable chest x-ray, check for flu and confirm his COVID, monitor closely and reassess. 1 AM Patient has done very well, laboratory work-up is stable. Vital signs stable. No evidence of hypoxemia or tachypnea. Patient received monoclonal antibody therapy and did well with this. He also received additional liter of normal saline. Patient stable for continued outpatient management. Chest x-ray negative for any evidence of pneumonia. No evidence of pneumothorax. Discussed red flags which to return. I have extensively reviewed the treatment plan and discharge instructions with the patient. I have addressed all patient concerns at this time. The patient was made aware of what symptoms to monitor for that would warrant a return to the emergency department. Discussed the plan with the patient, they demonstrate verbal understanding and agreement with our assessment and plan at this time. The documentation in this chart was dictated using [employer] dictation software. Please excuse any dictation errors. FINDINGS: Lungs: Atelectatic changes present within the left lower lobe of the lung. Pleural spaces: There is no evidence of pneumothorax. There are no pleural effusions present. Heart/Mediastinum: The cardiac structures are normal. The mediastinal contour is normal. Diaphragm: There is elevation of the right hemidiaphragm. Bones/joints: The skeletal structures and soft tissues show no evidence of fracture or other acute processes. Soft tissues: The soft tissues of the extrathoracic region are unremarkable. IMPRESSION: 1. There is elevation of the right hemidiaphragm. 2. Atelectatic changes present within the left lower lobe of the lung. 3. Otherwise, no definitive explanation for patient's current clinical presentation elicited on this study. Is Thank you for allowing us to participate in the care of your patient. HPI General Date/Time Provider Initiated Documentation: 07/14/21 22:33 . 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 Patient presents today for reinfection with COVID-19. Patient states that for the last 36 hours he has had flulike symptoms. He denies any change in his chronic cough. He does admit to myalgias, weakness, and fatigue. He did have a fever at home. He did a home COVID test and it was positive. He denies any chest pain or pleuritic chest pain. He denies any hemoptysis. He denies any numbness tingling or weakness. He denies any syncope. He does state that when he sits upright his heart rate goes way out. He has been drinking water at home. He took Tylenol last at 3 PM. No other complaints at this time. No other modifying factors. Of note the patient has not had any COVID-19 immunizations since his last infection, or before his prior infection. Related Data Home Medications Medication Instructions Recorded Confirmed metoprolol succinate 100 mg 100 mg PO DAILY 02/01/21 07/14/21 tablet,extended release 24 hr activated charcoal 200 mg capsule 200 mg PO DAILY 05/26/21 07/14/21 arginine oxoglurate 350 mg 350 mg PO TID 05/26/21 07/14/21 tablet,extended release (L-Arginine (alpha-ketoglutarate)) cholecalciferol (vitamin D3) 25 1,000 mcg PO DAILY 05/26/21 07/14/21 mcg (1,000 unit) capsule (Vitamin D3) lactobacillus combination no.4 3 3 cell PO DAILY 05/26/21 07/14/21 billion cell capsule (Probiotic) Allergies Allergy/AdvReac Type Severity Reaction Status Date / Time Sulfa (Sulfonamide Allergy Unknown Verified 07/14/21 22:48 Antibiotics) atomoxetine [From Strattera] AdvReac Unverified 07/14/21 22:48 prednisone AdvReac Unverified 07/14/21 22:48 General Stated Complaint: GenMedical JC: 3 Review of Systems All systems reviewed & are unremarkable except as noted in HPI and below PFSH All Active Problems (Updated 07/15/21 @ 00:45 by Edwin Lovelace DO) Reinfection by COVID-19 virus (Acute) Shortness of breath (Acute) Rib fracture (Acute) Nausea & vomiting (Acute) Costochondritis (Acute) Orthostatic hypotension (Acute) Medical History History of Lyme disease History of tachycardia Surgical History History of arthroscopic knee surgery Right knee meniscus surgery Social History Smoking/Tobacco Use Status: Former Tobacco Use Smoking risk assessment performed?: Yes Alcohol Intake: never Drug use: Never Substance use type: does not use Do you feel safe at home: Yes Do you feel safe in your relationship?: Yes Exam Narrative Exam Narrative: 1.Const: Well-nourished, Well-developed, appearing stated age 2.Eyes: PERRL, no conjunctival injection, and symmetrical lids. 3.ENT: Atraumatic external nose and ears. Moist MM. Neck: Symmetric, trachea midline, No thyromegaly. 4.CVS: +S1/S2, No murmurs or gallops. Peripheral pulses 2+ and equal in all extremities. Brisk capillary refill in all extremities. 5.RESP: Unlabored respiratory effort. Single wheeze in the left upper lung field. No rhonchi, no rales. 6.GI: Soft, Nontender/Nondistended, No hepatosplenomegaly. No guarding or rebound. 7.MSK: Normocephalic/Atraumatic, Extremities w/o deformity or ttp No cyanosis or clubbing, Normal movement of all extremities 8.Skin: Warm, Dry. No rashes or lesions. 9.Neuro: range management specialist II-XII grossly intact. Sensation grossly intact, no focal neurologic deficits. 10.Psych: (AAO) x3. Appropriate mood and affect Course Vital Signs Vital signs: Vital Signs Temperature 38.4 C H 07/14/21 22:43 Pulse 109 H 07/14/21 22:43 Respiratory Rate 18 07/14/21 22:43 Blood Pressure 138/90 07/14/21 22:43 Pulse Oximetry 97 07/14/21 22:43 Temperature 38.4 C H 07/14/21 22:43 Temperature Source Skin 07/14/21 22:43 Pulse 109 H 07/14/21 22:43 Respiratory Rate 18 07/14/21 22:46 Respiratory Effort 07/14/21 22:46 Respiratory Depth Normal 07/14/21 22:46 Respiratory Pattern Normal 07/14/21 22:46 Blood Pressure 138/90 07/14/21 22:43 Blood Pressure Position Supine 07/14/21 22:43 Pulse Oximetry 97 07/14/21 22:43 Oxygen Delivery Method Room Air 07/14/21 22:43 Oxygen Flow Rate 0 07/14/21 22:43 Pain Level 3 07/14/21 22:43
[2021-07-14] MEDS: Normal Saline 1,000 ML 1000 ML IV (23:32)
[2021-07-14] MEDS: Acetaminophen 500 MG TAB 1000 MG PO (23:32)
[2021-07-14 23:36] LABS: Abs Immature Grans 0.02 10^3/uL (0.0-0.06); Absolute Basophil Count 0.06 10^3/uL (0.0-0.2); Absolute Eosinophil Count 0.01 10^3/uL (0.0-0.7); Absolute Monocyte Count 1.14 10^3/uL (0.1-0.8); Absolute Neutrophil Count 7.78 10^3/uL (1.2-6.7); Basophils % 0.6; Eosinophils % 0.1; HCT 47.1 % (40.0-50.0); HGB 15.9 g/dL (13.5-17.5); Immature Grans % 0.2; MCH 30.7 pg (27.0-33.0); MCHC 33.8 % (32.0-36.0); MCV 91 fL (80-95); MPV 9.4 fL (8.0-11.0); Monocytes % 11.4; Neutrophils % 77.7; Platelet Count 244 10^3/uL (130-400); RBC 5.18 10^6/uL (4.36-5.78); RDW 12.4 % (11.8-14.1); RDW-SD 40.9 fL; WBC 10.01 10^3/uL (4.4-10.8)
[2021-07-14 23:42] LABS: Source Nasal/Nares
--- NOTE | 2021-07-14 23:49 | DI.VRAD_ITS ---
PROCEDURE INFORMATION: Exam: XR Chest Exam date and time: 07/14/2021 11:14 PM Age: 40 years old Clinical indication: Wheezing and other: Covid +, HX pneumothorax; Additional info: Covid +, HX pneumothorax , wheezing TECHNIQUE: Imaging protocol: XR of the chest. Views: 1 view. COMPARISON: CR XR PORTABLE CHEST AP 05/26/2021 9:35 AM FINDINGS: Lungs: Atelectatic changes present within the left lower lobe of the lung. Pleural spaces: There is no evidence of pneumothorax. There are no pleural effusions present. Heart/Mediastinum: The cardiac structures are normal. The mediastinal contour is normal. Diaphragm: There is elevation of the right hemidiaphragm. Bones/joints: The skeletal structures and soft tissues show no evidence of fracture or other acute processes. Soft tissues: The soft tissues of the extrathoracic region are unremarkable. IMPRESSION: 1. There is elevation of the right hemidiaphragm. 2. Atelectatic changes present within the left lower lobe of the lung. 3. Otherwise, no definitive explanation for patient's current clinical presentation elicited on this study. Is Dictated and Authenticated by: Wes Tony MD. Ordering:SORAIDA Pineda MD
[2021-07-14 23:53] LABS: ALT 38 U/L (16-63); AST 24 U/L (15-37); Albumin 3.7 g/dL (3.4-5.0); Alkaline Phosphatase 76 U/L (46-116); Anion Gap 10.3 mmol/L (3-11); BUN 11 mg/dL (7-18); Bilirubin, Total 0.8 mg/dL (0.2-1.0); CO2 23.7 mmol/L (21.0-32.0); Calcium 9.1 mg/dL (8.5-10.1); Chloride 102 mmol/L (98-107); Glucose 112 mg/dL (74-106); Potassium 3.6 mmol/L (3.5-5.1); Sodium 136 mmol/L (136-145); Total Protein 8.1 g/dL (6.4-8.2)
[2021-07-15 00:40] LABS: COVID-19 PCR Positive (Negative)
[2021-07-15 01:55] VITALS: BP 134/78; PULSE 89; RESP 18; O2SAT 94
== END 2021-07-15 01:56 | disposition home or self-care (01) ==
PROVIDERS: Emergency Provider Student in an Organized Health Care Education/Training Program; PCP Internal Medicine
DX: U07.1 COVID-19 (principal); Z86.16 Personal history of COVID-19
CPT/HCPCS: 80053; 87635; 87637; 96361; 96374; 99283; 99284; Q0222; 71045; 85025

== ENCOUNTER 2021-10-17 08:34 | Outpatient (CLI) | payer MEDICAID, SELFPAY ==
--- NOTE | 2021-10-17 08:30 | RT.EKG_ITS ---
APPROVED REPORT Exam: Resting ECG Reason for Exam: tachycardia Patient Location: O HR:91 bpm ECG Measurements Heart Rate 91 AXIS VT 153 P 32 QRSd 86 QRS 24 QT 333 T 5 QTc 410 Conclusion Sinus rhythm...normal P axis, V-rate 50- 99 Normal Electrocardiogram
== END 2021-10-17 08:35 | disposition home or self-care (01) ==
LOC: DI.CARD 08:35
PROVIDERS: PCP Internal Medicine; Visit Provider Internal Medicine Cardiovascular Disease
DX: R00.2 Palpitations (principal); R06.00 Dyspnea, unspecified; R55 Syncope and collapse
CPT/HCPCS: 93010

== ENCOUNTER 2021-11-24 16:09 | Outpatient (REF) | payer MEDICAID, SELFPAY ==
[2021-11-24 18:46] LABS: Abs Immature Grans 0.02 10^3/uL (0.0-0.06); Absolute Basophil Count 0.09 10^3/uL (0.0-0.2); Absolute Eosinophil Count 0.15 10^3/uL (0.0-0.7); Absolute Monocyte Count 0.79 10^3/uL (0.1-0.8); Absolute Neutrophil Count 5.14 10^3/uL (1.2-6.7); Basophils % 1.1; ESR 23 mm/hr (0-15); Eosinophils % 1.8; HCT 46.7 % (40.0-50.0); HGB 15.7 g/dL (13.5-17.5); Immature Grans % 0.2; Lymphocytes % 25.3; MCH 30.4 pg (27.0-33.0); MCHC 33.6 % (32.0-36.0); MCV 90 fL (80-95); Monocytes % 9.5; Neutrophils % 62.1; Platelet Count 284 10^3/uL (130-400); RBC 5.17 10^6/uL (4.36-5.78); RDW 12.1 % (11.8-14.1); RDW-SD 40.4 fL; WBC 8.29 10^3/uL (4.4-10.8)
[2021-11-24 19:01] LABS: C-Reactive Protein 0.55 mg/dL (0.0-0.3)
[2021-11-26 17:24] LABS: Rheumatoid Factor <8.6 IU/mL (<12.0)
[2021-11-27 09:36] LABS: Cyclic Citrullinated Peptide <2.5 U/mL (<5.0)
[2021-11-27 14:20] LABS: ANA Interpretation Negative (Negative)
== END 2021-11-24 16:10 | disposition home or self-care (01) ==
LOC: NCHCN 16:09
PROVIDERS: PCP Internal Medicine; Visit Provider Internal Medicine
DX: R53.83 Other fatigue (principal); R73.03 Prediabetes; M25.59 Pain in other specified joint; D12.6 Benign neoplasm of colon, unspecified; R00.0 Tachycardia, unspecified
CPT/HCPCS: 85652; 86200; 85025; 86038; 86140; 86431

== ENCOUNTER 2022-03-21 02:44 | Outpatient (CLI) | payer MEDICAID, SELFPAY ==
--- NOTE | 2022-03-21 07:38 | DI.RAD_ITS ---
Exam(s) XR CHEST 2V PA LATERAL EXAM: XR CHEST 2V PA LATERAL CLINICAL HISTORY: h/o PNX, chest pain similar to past PNX,CHEST PAIN WORSE WITH BREATHING, TECHNIQUE: 2D digital imaging was performed of the chest. Two images were obtained. PA and lateral views were obtained. COMPARISON: CR XR CHEST 2V PA LATERAL from 01/18/2021 CR,XR XR PORTABLE CHEST AP from 07/14/2021 FINDINGS: MEDIASTINUM: Normal. HEART: Normal. PULMONARY VASCULATURE: Normal. LUNGS: Clear. PLEURAL SPACE: No pleural effusion or pneumothorax. BONE:Within normal limits for the patient's age. OTHER FINDINGS:Normal. IMPRESSION: No acute pulmonary findings. DATA REPOSITORY: RADIATION DOSE DELIVERED:
== END 2022-03-21 03:04 ==
LOC: DI 02:44
PROVIDERS: PCP Internal Medicine; Visit Provider Student in an Organized Health Care Education/Training Program
DX: R07.89 Other chest pain (principal)
CPT/HCPCS: 71046

== ENCOUNTER 2024-02-11 20:35 | Outpatient (REF) | payer MEDICAID, SELFPAY ==
--- OUTSIDE RECORDS SUMMARY | 2024-02-11 20:37 | XMS_ITS | Continuity of Care Document ---
Author Organization [facility] Address [address] [place] [address] Care Team Providers Care Assistant Professor Of Art Name Role Phone Sapna [facility] Date[facility] 01/02/24 - 02/01/24 [facility] [address] [place] [address] Discharge Disposition: Home or Self Care Attending Physician: [facility] Referring Physician: Marylou Pineda PA-C Encounter Type: Preadmit Allergies, Adverse Reactions, Alerts Substance Criticality Severity Reaction Reaction Severity Status atomoxetine Unable to assess criticality Unknown Active sulfa drugs Unable to assess criticality Unknown Active predniSONE Unable to assess criticality Unknown Head pain Active Assessment and Plan Extracted from: Title:Dr. Cox- [facility] Note Author:Cathy Ibrahim Date:05/30/21 Follow Up 05-30-2021 F/U EM/Echo/S/P ED 05/05/21/CP EKG prior, confirmed Performed by Geraldo Cox MD, Cardiology, Reason for Visit Follow Up Event, Follow Up Echo, S/P - ED Visit, Chest Pain Assessment & Plan Date: May 30, 2021. Referring: Odilon Alejo Re: Constanza Birmingham 40-year-old man Problems: 1. Chest pain. Atypical described in chart. ER visit February 27, 2018. Chest pressure described several days prior to evaluation with radiation to left arm. Labs and EKG negative. Discharged. ER evaluation April 04, 2018. Abdominal pain with nausea and vomiting. History of intermittent chest discomfort. Chest discomfort day before evaluation with radiation of the left jaw and left forearm. Seconds duration. EKG chest x-ray reassuring. Thought consistent with viral syndrome. Discharged. ER evaluation September 13, 2018. Chest discomfort. 3 episodes lasting several weeks. Mild sharp discomfort. Also described pressure. More or less continuously with some waxing and waning. No triggers. ER evaluation August 01, 2019. Chest pain. 1 hour duration prior to evaluation. Anterior right chest. Tightness. No triggers. Pleuritic. 2. Tachycardia. Palpitations and sinus tachycardia described in chart. Maintained on beta- arsenio. Heart rates in the 100-120 bpm range described post Covid. Maintained on metoprolol succinate 100 mg every morning, 50 mg every afternoon. ER evaluation September 09, 2018. Chest discomfort described. Started metoprolol 50 mg at [facility]. Patient describes heart rates at home in the 120-150 bpm range. EKGs from [place] described as sinus rhythm 100, 84 bpm. ER evaluation December 30, 2020. Patient describing minimal chest discomfort. Describing heart rates up to 170 bpm. Usually in the 100-120 bpm range. EKG: Sinus tachycardia 120 bpm. Blood pressure 204/160. Heart rate recorded 134 bpm. Troponin negative x2. Discharged. ER evaluation March 15, 2019. Reports heart rates greater than 100 bpm. Heart rate 108 bpm in the ER. 3. Dyspnea. Developed following Covid infection with complications December 2020. Left pneumothorax in the context of Covid pneumonia November/December 2020. Required chest tube. O2 sats tenuous December 2020. Desaturated to 86% with activity. Short of breath ambulating room to room level surface. 4. Covid. Diagnosed November 2020. Admitted [facility] December 09? December 24, 2020. Treated with remdesivir, baricitinib, Decadron. CT angiogram: November 2020: Negative PE (D-dimer 1999). CT demonstrated multi lobar atypical pneumonia and small hiatal hernia. CK greater than 10,000. Severe infection that was complicated by large left-sided pneumothorax requiring chest tube. Complicated further by pneumonia treated with antibiotics. Became quite hypoxic: Required high flow nasal cannula and CPAP. Acutely worsening oxygen saturation status: Repeat CT scan: Large left pneumothorax prompting left chest tube. During this admission, in context of using commode in ICU, patient sustained a syncopal spell, struck his head with closed head injury/facial abrasions. Negative head bleed (patient being treated with enoxaparin at that time). Syncope thought secondary to orthostasis. Orthostatic hypotension not responsive to fluid bolus. Placed on midodrine which did improve orthostatic symptoms. 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 Closed head injury. Protein calorie malnutrition. Rhabdomyolysis. Medications at time of discharge: Midodrine 7.5 mg 3 times daily. Metoprolol 12.5 mg 3 times daily. Dexamethasone. Recurrent fevers post discharge. Post discharge was quite weak. Was noticing significant heart rate variability with minimal activity. Climbing stairs with elevated heart rates into the 150-bpm range. He could not tolerate this type of activity and so went to live with his girlfriend on 1 level. 5. Obstructive sleep apnea. Underwent a partial sleep evaluation prior to Covid infection. Insurance problematic. Underwent a home test: Inconclusive study. Full study never performed. Patient does snore. 6. Lyme disease. Details unclear. He feels he may have contracted Lyme disease many years ago (perhaps 20+). He has been seen by a Lyme specialist in [place]. Symptoms perhaps referable to Lyme disease starting about 4 years ago. The symptoms including increased heart rates, spells of chest discomfort that may last several hours. 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 3? 4 years ago, this began to become problematic. He would have episodes of palpitations/tachycardia, with episodes of chest discomfort (spells), shortness of breath. Symptoms would last quite briefly and were quite episodic, perhaps by weeks in between. This has begun to interfere significantly with his lifestyle. Symptoms associated with increased fatigue. Dyspnea. Antibiotics started 2020: Doxycycline, clarithromycin, hydroxychloroquine, back to doxycycline, tetracycline. Audible side effects with antibiotics (GI primarily). 7. Chronic arthralgias. HPI: May 30, 2021. ER evaluation May 05, 2021: Atypical chest pain. Symptoms worsening for the past 2 months. Nonexertional. Often occur at rest. Occasional palpitations. Chest x- ray: Prior infiltrates resolved. Troponin negative x1. EKG unremarkable. Discharged. Still describing considerable heart rate variability. When he lays down heart rates in the 80-90 bpm range. When he gets up heart rates increase in 120-130 bpm. If he stays on his feet and starts to do any work heart rates up to 140-150 bpm. He can notice a difference in laying down versus sitting (80->110 bpm). Continues to describe spells. This is episodic chest discomfort that may last several hours. He will get episodes on a daily basis for 1 or so months. Discomfort is substernal radiating into the left shoulder +/- diaphoresis. Has been ongoing for 4 years. No known triggers. Patient lives with his son and occasionally his girlfriend. He apparently has mold issues at home. Currently he is not working. He is quite fatigued most of the day. He has days where he can do a little more than others. His physical activity at most is basically walking back and forth in his house. Some days he is not capable of doing that. He may spend a fair bit of the day in bed. He smokes a fair bit of marijuana. He continues to describe episodic tachycardias. He is able to follow his heart rates with his smart phone. He has documented well, over the last few months, heart rates that are in the 80-bpm range suddenly rising into the 130+ bpm range. Heart rates have gone as high as 211 bpm by pulse oximeter he has at home. As high as 186 bpm on his phone. Symptoms typically last a few seconds, heart rate increases in this capacity and then settles back down. Occasionally this can go on for longer periods of time, up to several hours. He cannot describe any obvious triggers that might get his heart rate going. These increases are not positionally mediated. When he was discharged following Covid his heart rates are regularly in the 120-130 bpm range. Chest discomfort in the context of spells as above. His breathing is intermittently problematic. He does not describe chronic dyspnea as such. His weight is stable. He sleeps on 1 pillow. Snores. No PND orthopnea edema. Complications as above. No presyncope or syncope. No bleeding problems. DATA: Cardiac risk factors: Positive prediabetes. Positive remote tobacco. 6-pack-year history. Quit 2012. Negative cholesterol. Negative family history. Negative hypertension. Social history: Activity profile as above. No alcohol. No tobacco. Marijuana use as above. Past medical history: Constipation. Blurred vision. Depression. Arthralgia. Overweight. Eczema. IBS. Epicondylitis right humerus. History of bloody stools. Diverticular disease. Review of systems: A 10-point review of systems was obtained. Pertinent positives as described in HPI, all others negative. Allergies: Prednisone. Sulfa. Strattera. Contrast allergies: Echo: May 12, 2021. LVEF 65-70%. Normal size. Mild wall thickness increased. Right ventricle normal size and function. Left atrium normal. Right atrium normal. Aortic valve trileaflet. Trace MR. Pulmonary pressures not assessable. No aortic root normal. Ascending normal. IVC normal. Pericardium normal. E primed 9.7, 11.9 (15, 12). E/E primed average 6.0 (14). September 26, 2018. LVEF 65%. Normal size. Right ventricle normal size and function. Left atrium normal. Right atrium normal. Aortic valve trileaflet. Trace MR. Trace TR. Trace PI. Normal pericardium. Aortic root normal 3.4. Ascending normal 3.1. Arch normal 2.8. IVC mildly dilated with respirophasic change. No ASD VSD PFO. E prime 7.9, 5.2 (7, 10). E/E primed 7.9, 5.2 (15, 12). TR max 1.9 (2.8). Cardiac MRI: Stress: September 29, 2018. ETT. [place]. Achieved 95% MPHR on the Mahendra protocol, 172 bpm. Heart rate response to stress is exaggerated. No chest pain. Moderate dyspnea. EKG negative. Mildly diminished functional capacity. Normal study. [facility]: Holter: December 05, 2018. Holter monitor. 24-hour study. Baseline rhythm sinus. Average rate 87 bpm, range 52-153 bpm. Rare single PVC. Rare PAC. No symptoms. Nocturnal rates in the mid 50 bpm range. Event monitor: April 06? April 17, 2021. 10 days 21 hours. Baseline rhythm sinus. Rare single PAC. 1 burst SVT, 11 beat duration 130 bpm. No AF. Rare single PVC. 1 burst NSVT: 7 beat duration 162 bpm. Event occurs 3:37 PM. Asymptomatic. No significant bradycardia/block/pause greater than 3 seconds. 4 triggered events occurring during sinus rhythm +/- PACs 95-121 bpm. 2 diary entries. Symptoms of fluttering racing chest pain pressure noted during sinus rhythm 60-123 bpm, no significant ST-T wave changes. Average rate sinus rhythm: 82 bpm, range 48-170 bpm. March 222020. 5 days 8 hours. Baseline rhythm sinus. Rare single PAC. One burst SVT: 4 beat duration at 150 bpm. Rare single PVC. 1 run VT: 6 beat duration at 130 bpm. Occurs 4:09 AM. No bradycardia/block/pause greater than 3 seconds. 2 triggered events. Both events occurring during sinus rhythm 126, 143 bpm no symptoms. Average heart rate sinus: 88 bpm, range 53-154 bpm. March 15-2020. 1 day 13 hours. Baseline rhythm sinus. Rare single PAC. No SVT. No atrial fibrillation. Rare single PVC. No VT. No bradycardia/block/pause greater than 3 seconds. No symptoms. 3 triggered events. Events occurred during sinus rhythm 109-128 bpm. Average rate sinus: 95 bpm, range 59-174 bpm. May 25, 2019. [place]. 7-day event monitor. Baseline rhythm sinus. No atrial fibrillation or flutter. No SVT. No significant ventricular ectopy. Rare PVC. EKG: May 30, 2021. Sinus rhythm 102 bpm. Normal axis. No acute change. QT/QTc 320/393 ms May 05, 2021. Sinus rhythm 88 bpm. Normal axis. No acute change. QT/QTc 354/429 ms. May 02, 2021, sinus arrhythmia 89 bpm. Normal axis. No acute change. QT/QTc 342/392 ms. March 30, 2021. Sinus rhythm 79 bpm. Normal axis. No acute change. QT/QTc 350/383 ms March 15, 2020. Sinus rhythm 108 bpm. Normal axis. No acute change. Left atrial enlargement. QT/QTc 318/426 ms. December 30, 2020. Sinus rhythm 120 bpm. Normal axis. Left atrial enlargement. No acute change. QT/QTc 305/431 ms. Telemetry: Radiology: May 05, 2021. Chest x-ray. Pulmonary infiltrates seen on prior study have resolved. January 18, 2021. Chest x-ray. Interstitial markings lung bases left greater than right. Stable compared to exam January 09. No pneumothorax. Persistent stable elevation right hemidiaphragm. January 09, 2021. Chest CT angiogram with and without contrast. Top normal size main pulmonary artery. Negative pulmonary embolism. No aortic aneurysm or dissection. Peripheral bilateral groundglass opacities ovoid groundglass opacities consistent with reverse halo sign. No pericardial effusion. Hiatal hernia, patulous esophagus. Fatty liver. Diverticulosis without diverticulitis. January 02, 2021. Chest x-ray. Bilateral peripheral interstitial infiltrates consistent with atypical pneumonia. Pulmonary function test: February 24, 2021. PFTs: Normal FVC, FEV1, FEV1/FVC. Normal total lung capacity and residual volume. Normal diffusion capacity. Normal PFT. Labs: May 05, 2021. Troponin 7.2 (76). BUN/creatinine 16/0.9. Lites normal. CBC normal. January 18, 2021. BUN/creatinine 11/0.7. Calcium normal. Lites normal. C- reactive protein elevated 0.39. AST/ALT normal. January 09, 2021. BUN/creatinine 12/0.8. GFR greater than 60. AST/ALT normal. Lites normal. Magnesium normal 2.1. TSH normal 1.59. Troponin less than 0.05. proBNP 40. December 30, 2020. Troponin 10.4, 10.1. BUN/creatinine 14/0.9. Lites normal. H/H 13.3, 40.3. WBC, platelet normal. December 21, 2020. [facility]. D-dimer elevated 801. December 16, 2020. ALT/ALT 81/136. Medications: Metoprolol succinate 125 mg daily Indomethacin, Flagyl, doxycycline, Cipro, cefpodoxime Exam: Blood pressure: 132/79 Heart rate: 113 Oxygen saturation: 97% Weight: 237 pounds, 252 pounds March 30, 2021: Orthostatics. Supine heart rate 76, blood pressure 112/64. Standing 1 minute: Heart rate 106 bpm, blood pressure 127/78. Standing 3-minute: Heart rate 119 bpm, blood pressure 132/76. May 30, 2021 orthostatics: Supine 119/74, heart rate 80, standing 1 minute 126/85, heart rate 110, standing 3 minutes 119/88, heart rate 120 General: Patient alert oriented appropriate conversant. HEENT: JVP 7 cm sitting Heart: Tachycardic, distant, Lungs: Clear to auscultation bilaterally Abdomen: Soft. Nontender. Nondistended. No sacral edema. Extremities: 1+ lower extremity edema bilaterally. Assessment: 1. Dysautonomia. I think patient has a good story for dysautonomia. I think he meets criteria for POTS on orthostatics obtained in the office. His heart rate increases greater than 40 bpm with position change, his blood pressure actually rises. It sounds like he has had difficulties with intermittent tachycardia for years. Most of this sounds quite brief in nature although some episodes apparently last longer. He has undergone multiple monitors for this. Holter monitor 2018: Average heart rate 87 bpm. Rare PAC/PVC. Event monitor March 2020: He had problems with lead adhesive and 2 studies were essentially fashioned from this. Baseline rhythm sinus with average rate 88, 95 bpm. Rare PACs. Rare PVCs. One 6 beat burst NSVT. 4:09 AM. One 4 beat burst SVT. History normal cardiac anatomy and function: Echo 2018: Normal LV systolic function, diastolic indices appear normal. Normal valves. Because of tachycardia and chest pain, treadmill stress test obtained in [place] 2018. Heart rate 170+ BPM on the treadmill: Exaggerated heart rate response. Negative ischemia. He describes a history of Lyme disease. Details of this are somewhat unclear. Perhaps occurring many years ago. Perhaps more recently within the last several years. Perhaps chronic Lyme syndrome. Has been on antibiotics for the last couple of years. COVID infection, significant, November/December 2020. I would be surprised if in the context of these viral exposures has developed dysautonomia. PFTs normal February 2021. Event monitor March - April 2021: Sinus rhythm baseline with rare PAC. 1 burst SVT, no AF. Rare PVC. 1 brief burst NSVT. No bradycardia. Fluttering and racing chest pain pressure noted during sinus rhythm 60-123 bpm. Average rate sinus: 82 bpm, range 48-170 bpm. Echo May 2021: Normal cardiac anatomy and function. He is maintained on metoprolol. Ivabradine may have some utility here. He maintains good hydration, drinks between 70-100 ounces of water daily. Have encouraged walking. He has days where he just has no energy whatsoever (question chronic Lyme syndrome). He is not exercising on a regular or consistent basis. I think he needs to start to walk on a very regular basis. He spends too much of his time in a sedentary capacity. He is not enthusiastic about support hose. Will refer to dysautonomia clinic at [facility]. Sincerely, Geraldo Cox MD, [facility] Disposition: We will see him back 3 months Time: 45-minute [id number] interview with patient. 15-minute chart reviewed only completion Future Appointments Immunizations Given and Recorded Vaccine Date Status Refusal Reason tetanus/diphth/pertuss (Tdap) adult/adol 10/11/06 Recorded Medications aspirin 81 mg oral tablet, chewable 81 mg = 1 tab, Oral, Daily, 0 Refill(s) Start Date: 08/03/21 Status: Ordered Repeat number: 1 metoprolol succinate 100 mg oral tablet, extended release 100 mg = 1 tab, Oral, Daily, Total daily dose is 125 mg, # 30 tab, 0 Refill(s) Start Date: 08/03/21 Status: Ordered Quantity: 30.0 Unit: tab Repeat number: 1 multivitamin adult, oral tablet 0 Refill(s) Start Date: 05/29/22 Status: Ordered Repeat number: 1 Problem List Condition Confirmation Course Effective Dates Status Health St atus Informant Acute tear of medial meniscus of right knee Confirmed 03/19/14 Active Depression Confirmed Active Eczema Confirmed Active GERD (gastroesophageal reflux disease) Confirmed Active HTN (hypertension) Confirmed Active IBS - Irritable bowel syndrome Confirmed Active Injury of left hand Confirmed Active Pain of bilateral knee regions Confirmed 03/19/14 Active Knee pain Confirmed Active Palpitations Confirmed Active Palpitations Confirmed 08/12/19 Active Paroxysmal nocturnal dyspnea Confirmed Active Pneumothorax 1 Confirmed Active Postural orthostatic tachycardia syndrome Confirmed Active 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 ( in [facility] ) 2Outside Source Comment: Overview: Normal ETT Normal coronary CTA-- though LAD is intramyocardial for part of its course. 3Pt states he has POTS ( Postural Orthostatic Tacycardia Syndrome ) Procedures Procedure Date Related Diagnosis Body Site Status Colonoscopy 05/28/22 Completed Colonoscopy 03/30/18 Completed Arthroscopy of knee 1, 2 Completed 1in 2015 2Right - for a Meniscus tear. Social History Social History Type Response Tobacco Never tobacco user T obacco Use:. Sex Male Sex Representation Male (finding) Cardiology Outpatient Note * Patrice Cathy: PERFORM Event Display: Cardiology Office Clinic Note Authored Date: [id number] Follow Up 05-30-2021 F/U EM/Echo/S/P ED 05/05/21/CP EKG prior, confirmed Performed by Geraldo Cox MD, Cardiology, Reason for Visit Follow Up Event, Follow Up Echo, S/P - ED Visit, Chest Pain Assessment & Plan Date: May 30, 2021. Referring: Odilon Alejo Re: Constanza Birmingham 40-year-old man Problems: 1. Chest pain. Atypical described in chart. ER visit February 27, 2018. Chest pressure described several days prior to evaluation with radiationto left arm. Labs and EKG negative. Discharged. ER evaluation April 04, 2018. Abdominal pain with nausea and vomiting. History of intermittent chest discomfort. Chest discomfort day before evaluation with radiation of the left jaw and left forearm. Seconds duration. EKG chest x- ray reassuring. Thought consistent with viral syndrome. Discharged. ER evaluation September 13, 2018. Chest discomfort. 3 episodes lasting several weeks. Mild sharp discomfort. Also described pressure. More or less continuously with some waxing and waning. No triggers. ER evaluation August 01, 2019. Chest pain. 1 hour duration prior to evaluation. Anterior right chest.Tightness. No triggers. Pleuritic. 2. Tachycardia. Palpitations and sinus tachycardia described in chart. Maintained on beta-arsenio. Heart rates in the 100-120 bpm range described post Covid. Maintained on metoprolol succinate 100 mg every morning, 50 mg every afternoon. ER evaluation September 09, 2018. Chest discomfort described. Started metoprolol 50 mg at [facility]. Patient describes heart rates at home in the 120-150 bpm range. EKGs from [place] described as sinus rhythm 100, 84 bpm. ER evaluation December 30, 2020. Patient describing minimal chest discomfort. Describing heart rates up to 170 bpm. Usually in the 100-120 bpm range. EKG: Sinus tachycardia 120 bpm. Blood pressure 204/160. Heart rate recorded 134 bpm. Troponin negative x2. Discharged. ER evaluation March 15, 2019. Reports heart rates greater than 100 bpm. Heart rate 108 bpm in theER. 3. Dyspnea. Developed following Covid infection with complications December 2020. Left pneumothorax in the context of Covid pneumonia December 2020. Required chest tube. O2 sats tenuous December 2020. Desaturated to 86% with activity. Short of breath ambulating room toroom level surface. 4. Covid. Diagnosed November 2020. Admitted [facility] December 09???December 24, 2020. Treated with remdesivir, baricitinib, Decadron. CT angiogram: November 2020: Negative PE (D-dimer 1999). CT demonstrated multi lobar atypical pneumonia and small hiatal hernia. CK greater than 10,000. Severe infection that was complicated by large left-sided pneumothorax requiring chest tube. Complicated further by pneumonia treated with antibiotics. Became quite hypoxic: Required high flow nasal cannula and CPAP. Acutely worsening oxygen saturation status: Repeat CT scan: Large left pneumothorax prompting left chest tube. During this admission, in context of using commode in ICU, patient sustained a syncopal spell, struck his head with closed head injury/facial abrasions. Negative head bleed (patient being treated with enoxaparin at that time). Syncope thought secondary to orthostasis. Orthostatic hypotension not responsive to fluid bolus. Placed on midodrine which did improve orthostatic symptoms. 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 Closed headinjury. Protein calorie malnutrition. Rhabdomyolysis. Medications at time of discharge: Midodrine 7.5 mg 3 times daily. Metoprolol 12.5 mg 3 times daily.Dexamethasone. Recurrent fevers post discharge. Post discharge was quite weak. Was noticing significant heart rate variability with minimal activity. Climbing stairs with elevated heart rates into the 150- bpm range. He could not tolerate this typeof activity and so went to live with his girlfriend on 1 level. 5. Obstructive sleep apnea. Underwent a partial sleep evaluation prior to Covid infection. Insurance problematic. Underwent a home test: Inconclusive study. Full study never performed. Patient does snore. 6. Lyme disease. Details unclear. He feels he may have contracted Lyme disease many years ago (perhaps 20+). He has been seen by a Lyme specialist in [place]. Symptoms perhaps referable to Lyme disease startingabout 4 years ago. The symptoms including increased heart rates, spells of chest discomfort that may last several hours. 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 3???4 years ago, this began to become problematic. He would have episodes of palpitations/tachycardia, with episodes of chest discomfort (spells), shortness of breath. Symptoms would last quite briefly and were quite episodic, perhaps by weeks in between. This has begun to interfere significantly with his lifestyle. Symptoms associated with increased fatigue. Dyspnea. Antibiotics started 2020: Doxycycline, clarithromycin, hydroxychloroquine, back to doxycycline, tetracycline. Audible side effects with antibiotics (GI primarily). 7. Chronic arthralgias. HPI: May 30, 2021. ER evaluation May 05, 2021: Atypical chest pain. Symptoms worsening for the past 2 months. Nonexertional. Often occur at rest. Occasional palpitations. Chest x-ray: Prior infiltrates resolved. Troponin negative x1. EKG unremarkable. Discharged. Still describing considerable heart rate variability. When he lays down heart rates in the 80-90 bpm range. When he gets up heart rates increase in 120-130 bpm. If he stays on his feet and starts to do any work heart rates up to 140-150 bpm. He can notice a difference in laying down versus sitting (80->110 bpm). Continues to describe spells. This is episodic chest discomfort that may last several hours. He will get episodes on a daily basis for 1 or so months. Discomfort is substernal radiating into the left shoulder +/- diaphoresis. Has been ongoing for 4 years. No known triggers. Patient lives with his son and occasionally his girlfriend. He apparently has mold issues at home. Currently he is not working. He is quite fatigued most of the day. He has days where he can do a little more than others. His physical activity at most is basically walking back and forth in his house. Some days he is not capable of doing that. He may spend a fair bit of the day in bed. He smokes afair bit of marijuana. He continues to describe episodic tachycardias. He is able to follow his heart rates with his smartphone. He has documented well, over the last few months, heart rates that are in the 80-bpm range suddenly rising into the 130+ bpm range. Heart rates have gone as high as 211 bpm by pulse oximeter he has at home. As high as 186 bpm on his phone. Symptoms typically last a few seconds, heart rate increases in this capacity and then settles back down. Occasionally this can go on for longer periods of time, up to several hours. He cannot describe any obvious triggers that might get his heart rate going. These increases are not positionally mediated. When he was discharged following [facility] his heart rates are regularly in the 120-130 bpm range. Chest discomfort in the context of spells as above. His breathing is intermittently problematic. He does not describe chronic dyspnea as such. His weight is stable. He sleeps on 1 pillow. Snores. No PND orthopnea edema. Complications as above. No presyncope or syncope. No bleeding problems. DATA: Cardiac risk factors: Positive prediabetes. Positive remote tobacco. 6-pack-year history. Quit 2012. Negative cholesterol. Negative family history. Negative hypertension. Social history: Activity profile as above. No alcohol. No tobacco. Marijuana use as above. Past medical history: Constipation. Blurred vision. Depression. Arthralgia. Overweight. Eczema. IBS. Epicondylitis right humerus. History of bloody stools. Diverticular disease. Review of systems: A 10-point review of systems was obtained. Pertinent positives as described in HPI, all others negative. Allergies: Prednisone. Sulfa. Strattera. Contrast allergies: Echo: May 12, 2021. LVEF 65-70%. Normal size. Mild wall thickness increased. Right ventricle normal size and function. Left atrium normal. Right atrium normal. Aortic valve trileaflet. Trace MR. Pulmonary pressures not assessable. No aortic root normal. Ascending normal. IVC normal. Pericardium normal. E primed 9.7, 11.9 (15, 12). E/E primed average 6.0 (14). September 26, 2018. LVEF 65%. Normal size. Right ventricle normal size and function. Left atrium normal. Right atrium normal. Aortic valve trileaflet. Trace MR. Trace TR. Trace PI. Normal pericardium. Aortic root normal 3.4. Ascending normal 3.1. Arch normal 2.8. IVC mildly dilated with respirophasic c hange. No ASD VSD PFO. E prime 7.9, 5.2 (7, 10). E/E primed 7.9, 5.2 (15, 12). TR max 1.9 (2.8). Cardiac MRI: Stress: September 29, 2018. ETT. Jocelyn. Achieved 95% MPHR on the Mahendra protocol, 172 bpm. Heart rate response to stress is exaggerated. No chest pain. Moderate dyspnea. EKG negative. Mildly diminished functional capacity. Normal study. [facility]: Holter: December 05, 2018. Holter monitor. 24-hour study. Baseline rhythm sinus. Average rate 87 bpm, range 52-153 bpm. Rare single PVC. Rare PAC. No symptoms. Nocturnal rates in the mid 50 bpm range. Event monitor: April 06???April 17, 2021. 10 days 21 hours. Baseline rhythm sinus. Rare single PAC. 1 burst SVT, 11 beat duration 130 bpm. No AF. Rare single PVC. 1 burst NSVT: 7 beat duration 162 bpm. Event occurs 3:37 PM. Asymptomatic. No significant bradycardia/block/pause greater than 3 seconds. 4 triggered events occurring during sinus rhythm +/- PACs 95-121 bpm. 2 diary entries. Symptoms of fluttering racing chest pain pressure noted during sinus rhythm 60-123 bpm, no significant ST-T wave changes. Average rate sinus rhythm: 82 bpm, range 48-170 bpm. March 222020. 5 days 8 hours. Baseline rhythm sinus. Rare single PAC. One burst SVT: 4 beat duration at 150 bpm. Rare single PVC. 1 run VT: 6 beat duration at 130 bpm. Occurs 4:09 AM. No bradycardia/block/pause greater than 3 seconds. 2 triggered events. Both events occurring during sinus rhythm 126, 143 bpm no symptoms. Average heart rate sinus: 88 bpm, range 53-154 bpm. March 15-2020. 1 day 13 hours. Baseline rhythm sinus. Rare single PAC. No SVT. No atrial fibrillation. Rare single PVC. No VT. No bradycardia/block/pause greater than 3 seconds. No symptoms. 3 triggered events. Events occurred during sinus rhythm 109-128 bpm. Average rate sinus: 95 bpm, range 59-174 bpm. May 25, 2019. [place]. 7-day event monitor. Baseline rhythm sinus. No atrial fibrillation or flutter. No SVT. No significant ventricular ectopy. Rare PVC. EKG: May 30, 2021. Sinus rhythm 102 bpm. Normal axis. No acute change. QT/QTc 320/393 ms May 05, 2021. Sinus rhythm 88 bpm. Normal axis. No acute change. QT/QTc 354/429 ms. May 02, 2021, sinus arrhythmia 89 bpm. Normal axis. No acute change. QT/QTc 342/392 ms. March 30, 2021. Sinus rhythm 79 bpm. Normal axis. No acute change. QT/QTc 350/383 ms March 15, 2020. Sinus rhythm 108 bpm. Normal axis. No acute change. Left atrial enlargement. QT/QTc 318/426 ms. December 30, 2020. Sinus rhythm 120 bpm. Normal axis. Left atrial enlargement. No acute change. QT/QTc 305/431 ms. Telemetry: Radiology: May 05, 2021. Chest x-ray. Pulmonary infiltrates seen on prior study have resolved. January 18, 2021. Chest x-ray. Interstitial markings lung bases left greater than right. Stable compared to exam January 09. No pneumothorax. Persistent stable elevation right hemidiaphragm. January 09, 2021. Chest CT angiogram with and without contrast. Top normal size main pulmonary artery. Negative pulmonary embolism. No aortic aneurysm or dissection. Peripheral bilateral groundglassopacities ovoid groundglass opacities consistent with reverse halo sign. No pericardial effusion. Hiatal hernia, patulous esophagus. Fatty liver. Diverticulosis without diverticulitis. January 02, 2021. Chest x-ray. Bilateral peripheral interstitial infiltrates consistent with atypical pneumonia. Pulmonary function test: February 24, 2021. PFTs: Normal FVC, FEV1, FEV1/FVC. Normal total lung capacity and residual volume. Normal diffusion capacity. Normal PFT. Labs: May 05, 2021. Troponin 7.2 (76). BUN/creatinine 16/0.9. Lites normal. CBC normal. January 18, 2021. BUN/creatinine 11/0.7. Calcium normal. Lites normal. C- reactive protein elevated 0.39. AST/ALT normal. January 09, 2021. BUN/creatinine 12/0.8. GFR greater than 60. AST/ALT normal. Lites normal. Magnesium normal 2.1. TSH normal 1.59. Troponin less than 0.05. proBNP 40. December 30, 2020. Troponin 10.4, 10.1. BUN/creatinine 14/0.9. Lites normal. H/H 13.3, 40.3. WBC, platelet normal. December 21, 2020. [facility]. D-dimer elevated 801. December 16, 2020. ALT/ALT 81/136. Medications: Metoprolol succinate 125 mg daily Indomethacin, Flagyl, doxycycline, Cipro, cefpodoxime Exam: Blood pressure: 132/79 Heart rate: 113 Oxygen saturation: 97% Weight: 237 pounds, 252 pounds March 30, 2021: Orthostatics. Supine heart rate 76, blood pressure 112/64. Standing 1 minute: Heart rate 106 bpm, blood pressure 127/78. Standing 3-minute: Heart rate 119 bpm, blood pressure 132/76. May 30, 2021 orthostatics: Supine 119/74, heart rate 80, standing 1 minute 126/85, heart rate 110, standing 3 minutes 119/88, heart rate 120 General: Patient alert oriented appropriate conversant. HEENT: JVP 7 cm sitting Heart: Tachycardic, distant, Lungs: Clear to auscultation bilaterally Abdomen: Soft. Nontender. Nondistended. No sacral edema. Extremities: 1+ lower extremity edema bilaterally. Assessment: 1. Dysautonomia. I think patient has a good story for dysautonomia. I think he meets criteria for POTS on orthostatics obtained in the office. His heart rate increases greater than 40 bpm with position change, his blood pressure actually rises. It sounds like he has had difficulties with intermittent tachycardia for years. Most of this soundsquite brief in nature although some episodes apparently last longer. He has undergone multiple monitors for this. Holter monitor 2019: Average heart rate 87 bpm. Rare PAC/PVC. Event monitor March 2020: He had problems with lead adhesive and 2 studies were essentially fashioned from this. Baseline rhythm sinus with average rate 88, 95 bpm. Rare PACs. Rare PVCs. One 6 beat burst NSVT. 4:09 AM. One 4 beat burst SVT. History normal cardiac anatomy and function: Echo 2019: Normal LV systolic function, diastolic indices appear normal. Normal valves. Because of tachycardia and chest pain, treadmill stress test obtained in [place] 2018. Heart rate 170+ BPM on the treadmill: Exaggerated heart rate response. Negative ischemia. He describes a history of Lyme disease. Details of this are somewhat unclear. Perhaps occurring many years ago. Perhaps more recently within the last several years. Perhaps chronic Lyme syndrome. Hasbeen on antibiotics for the last couple of years. COVID infection, significant, December 2020. I would be surprised if in the context of these viral exposures has developed dysautonomia. PFTs normal February 2021. Event monitor March - April 2021: Sinus rhythm baseline with rare PAC. 1 burst SVT, no AF. Rare PVC. 1 brief burst NSVT. No bradycardia. Fluttering and racing chest pain pressure noted during sinus rhythm 60-123 bpm. Average rate sinus: 82 bpm, range 48-170 bpm. Echo May 2021: Normal cardiac anatomy and function. He is maintained on metoprolol. Ivabradine may have some utility here. He maintains good hydration, drinks between 70-100 ounces of water daily. Have encouraged walking. He has days where he just has no energy whatsoever (question chronic Lyme syndrome). He is not exercising on a regular or consistent basis. I think he needs to start to walk on a very regular basis. He spends too much of his time in a sedentary capacity. He is not enthusiastic about support hose. Will refer to dysautonomia clinic at [facility]. Sincerely, Geraldo Cox MD, [facility] Disposition: We will see him back 3 months Time: 45-minute [id number] interview with patient. 15-minute chart reviewed only completion Electronically Signed on 12/30/2023 15:28 EST Cathy Ibrahim Patient Care team information Care Team Personnel Name: Odilon Davis MD Position: No Access Member Role: Informed Provider Address: [place] [address]- Telecom: Care Team Related Persons Name: ARDEN PETTIT Insurance Providers Guarantor name: CONSTANZA [place] Health Plan Information #: 1 Payer: [facility] [employer] Member Number: [id number] Policy Number: NA Group Number: NA Health Plan Information #: 2 Payer: [employer] [place] Member Number: [id number] Policy Number: NA Group Number: NA Health Plan Information #: 3 Payer: [employer] [place] [employer] Member Number: [id number] Policy Number: NA Group Number: NA
--- OUTSIDE RECORDS SUMMARY | 2024-02-11 20:37 | XMS_ITS | Continuity of Care Document ---
Author Organization [facility] Address [address] [place] [address] Care Team Providers Care Capture Manager Name Role Phone Primeau IPHCOdilon Primary Care Physician Encounter [facility] [id number] Date(s): 08/23/22 - 08/23/[address] [address] Encounter Diagnosis Cough(Discharge Diagnosis) - 08/23/22 Vomiting(Discharge Diagnosis) - 08/23/22 Discharge Disposition: Home or Self Care Attending Physician: Guille Lange MD Admitting Physician: Guille Lange MD Allergies, Adverse Reactions, Alerts Substance Reaction Severity Status atomoxetine Unknown Active sulfa drugs Unknown Active predniSONE Head pain Unknown Active Assessment and Plan Extracted from: Title:Clinical Document Author:Constanza Reynolds Date:08/23/22 Diagnosis: 1. Cough Comment: Diagnosis: 2. Vomiting Comment: Diagnosis: Cough Comment: Diagnosis: Vomiting Comment: Additional Orders: Comment: Discontinued: CV EKG ED,08/23/22 16:29:00 EDT, Routine, Reason: Other (please specify), Stop date and time 08/23/22 16:29:00 EDT, ORD_SET_REQ_DT_RANGE, Cerner's Internal Person Id Functional Status 08/23/22 Other exposure to Infectious Disease COV ID-19 Symptoms Present Immunizations Given and Recorded Vaccine Date Status Refusal Reason tetanus/diphth/pertuss (Tdap) adult/adol 10/11/06 Recorded Medications aspirin 81 mg oral tablet, chewable 81 mg = 1 tab, Oral, Daily, 0 Refill(s) Start Date: 08/03/21 Status: Ordered metoprolol succinate 100 mg oral tablet, extended release 100 mg = 1 tab, Oral, Daily, Total daily dose is 125 mg, # 30 tab, 0 Refill(s) Start Date: 08/03/21 Status: Ordered multivitamin adult, oral tablet 0 Refill(s) Start Date: 05/29/22 Status: Ordered ondansetron 8 mg oral tablet, disintegrating 8 mg = 1 tab, Oral, TID, X 5 days, # 15 tab, 0 Refill(s), 08/28/22 18:01:00 EDT, Pharmacy: [facility] #[id number], 175, cm, 08/23/22 16:33:00 EDT, Height/Length Dosing, 106, kg, 08/23/22 16:33:00 EDT, Weight Dosing Start Date: 08/23/22 Stop Date: 08/28/22 Status: Ordered Tessalon Perles 100 mg oral capsule 200 mg = 2 cap, Oral, TID, PRN as needed for cough, X 7 days, # 30 cap, 0 Refill(s), 08/30/22 18:01:00 EDT, Pharmacy: [facility] #[id number], 175, cm, 08/23/22 16:33:00 EDT, Height/Length Dosing, 106, kg, 08/23/22 16:33:00 EDT, Weight Dosing Start Date: 08/23/22 Stop Date: 08/30/22 Status: Ordered Mental Status 08/23/22 Eye Opening Response [place] Spontaneous ly Best Verbal Response Kit Oriented Best Motor Response Kit Obeys comman ds Kit Coma Score 15 Problem List Condition Confirmation Course Effective Dates [...] Active Tubular adenoma of colon Confirmed Active 43395 R/T Covid. ( in [facility] ) [...] 2015 2Right - for a Meniscus tear. Results Laboratory List Name Date CBC w/ Diff 08/23/22 Comprehensive Metabolic Panel 08/23/22 Lipase Level 08/23/22 Troponin-I 08/23/22 Automated Diff 08/23/22 Most recent to oldest [Reference Range]: 1 WBC [5.0-10.0 x10^3/mcL] 6.8 x10^3/mcL (08/23/22 5:00 PM) RBC [4.6-6.0 x10^6/mcL] 5.4 x10^6/mcL (08/23/22 5:00 PM) Neutro Auto [40.0-75.0 %] 52.0 % (08/23/22 5:00 PM) Lymph Auto [20.0-50.0 %] 35.3 % (08/23/22 5:00 PM) [place] Auto [2.0-15.0 %] 9.3 % (08/23/22 5:00 PM) Basophil Auto [0.0-1.0 %] 1.0 % (08/23/22 5:00 PM) BUN [7-18 mg/dL] 12 mg/dL (08/23/22 5:00 PM) Glucose Level [74-106 mg/dL] 103 mg/dL (08/23/22 5:00 PM) Potassium Level [3.5-5.1 mmol/L] 3.8 mmo l/L (08/23/22 5:00 PM) MCV [80.0-96.0 fL] 89.0 fL (08/23/22 5:00 PM) AST [15-37 unit/L] 24 unit/L (08/23/22 5:00 PM) ALT [16-63 unit/L] 45 unit/L (08/23/22 5:00 PM) MCHC [31.0-35.0 g/dL] 34.4 g/dL (08/23/22:00 PM) Troponin-I [0.0-76.2 pg/mL] 6.9 pg/mL (08/23/22 5:00 PM) Sodium Level [136-145 mmol/L] 140 mmol/L (08/23/22:00 PM) Hct [41.0-51.0 %] 47.9 % (08/23/22:00 PM) Lipase Level [16-77 unit/L] 28 unit/L 1 (08/23/22: PM) Calcium Level [8.5-10.1 mg/dL] 9.2 mg/dL (08/23/22: PM) Albumin Level [3.4-5.0 g/dL] 3.5 g/dL (08/23/22: PM) Protein Total [6.4-8.2 g/dL] 8.3 g/dL *HI* (08/23/22:00 PM) MCH [26.0-32.0 pg] 30.7 pg (08/23/22:00 PM) Neutro Absolute 3.5 x10^3/mcL *NA* (08/23/22:00 PM) Bilirubin Total [0.2-1.0 mg/dL] 0.6 mg/d L (08/23/22:00 PM) Hgb [14.0-18.0 g/dL] 16.5 g/dL (08/23/22:00 PM) Alk Phos [46-146 unit/L] 66 unit/L (08/23/22:00 PM) Platelets [130-450 x10^3/mcL] 315 x10^3/ mcL (08/23/22:00 PM) CO2 [21-32 mmol/L] 24 mmol/L (08/23/22:00 PM) eGFR Non-AA [>=60] 112 (08/23/22 5:00 PM) eGFR AA [>=60] 112 (08/23/22:00 PM) Chloride Level [98-107 mmol/L] 106 mmol/ L (08/23/22 5:00 PM) RDW-CV [11.5-14.5 %] 11.9 % (08/23/22 5:00 PM) Imm Gran Auto [0.0-0.9 %] 0.3 % (08/23/22 5:00 PM) Creatinine Level [0.70-1.30 mg/dL] 0.82 mg/dL (08/23/22 5:00 PM) Eos, Auto [1.0-6.0 %] 2.1 % (08/23/22 5:00 PM) 1Interpretive Data: Effective 11/30/21, [facility] has switched to a revised Lipase test.Note new ReferenceRange. Vital Signs Most recent to oldest [Reference Range]: 1 Temperature Temporal Artery [36-38 Deg C ] 36.7 Deg C (08/23/22 4:28 PM) Peripheral Pulse Rate [60-100 bpm] 89 bp m (08/23/22 4:28 PM) Respiratory Rate [12-24 br/min] 20 br/mi n (08/23/22 4:28 PM) Blood Pressure [90-140/60-90 mmHg] 133/9 3mmHg (08/23/22 4:28 PM) Weight Dosing 106.00 kg (08/23/22 4:33 PM) Weight Estimated 106.00 kg (08/23/22 4:28 PM) Height/Length Dosing 175.000 cm (08/23/22 4:33 PM) Height/Length Estimated 175.000 cm (08/23/22 4:28 PM) Social History Social History Type Response Tobacco Former tobacco user Tobacco Use:. Sex Male Hospital Discharge Instructions Patient Education 08/23/2022 16:59:10 Cough, Adult Cough, Adult Coughing is a reflex that clears your throat and your airways (respiratory system). Coughing helps to heal and protect your lungs. It is normal to cough occasionally, but a cough that happens with other symptoms or lasts a long time may be a sign of a condition that needs treatment. An acute cough may only last 2???3 weeks, while a chronic cough may last 8 or more weeks. Coughing is commonly caused by: ??? Infection of the respiratory systemby viruses or bacteria. ??? Breathing in substances that irritate your lungs. ??? Allergies. ??? Asthma. ??? Mucus that runs down the back of your throat (postnasal drip). ??? Smoking. ??? Acid backing up from the stomach into the esophagus (gastroesophageal reflux). ??? Certain medicines. ??? Chronic lung problems. ??? Other medical conditions such as heart failure or a blood clot in the lung (pulmonary embolism). Follow these instructions at home: Medicines ??? Take xgml-cck-eioxybf and prescription medicines only as told by your health care provider. ??? Talk with your health care provider before you take a cough suppressant medicine. Lifestyle ??? Avoid cigarette smoke. Do not use any products that contain nicotine or tobacco, such as cigarettes, e-cigarettes, and chewing tobacco. If you need help quitting, ask your health care provider. ??? Drink enough fluid to keep your urine pale yellow. ??? Avoid caffeine. ??? Do not drink alcohol if your health care provider tells you not to drink. General instructions ??? Pay close attention to changes in your cough. Tell your health care provider about them. ??? Always cover your mouth when you cough. ??? Avoid things that make you cough, such as perfume, candles, cleaning products, or campfire or tobacco smoke. ??? If the air is dry, use a cool mist vaporizer or humidifier in your bedroom or your home to helploosen secretions. ??? If your cough is worse at night, try to sleep in a semi-upright position. ??? Rest as needed. ??? Keep all follow-up visits as told by your health care provider. This is important. Contact a health care provider if you: ??? Have new symptoms. ??? Cough up pus. ??? Have a cough that does not get better after 2???3 weeks or gets worse. ??? Cannot control your cough with cough suppressant medicines and you are losing sleep. ??? Have pain that gets worse or pain that is not helped with medicine. ??? Have a fever. ??? Have unexplained weight loss. ??? Have night sweats. Get help right away if: ??? You cough up blood. ??? You have difficulty breathing. ??? Your heartbeat is very fast. These symptoms may represent a serious problem that is an emergency. Do not wait to see if the symptoms will go away. Get medical help right away. Call your local emergency services (911 in the [place] Do not drive yourself to the hospital. Summary ??? Coughing is a reflex that clears your throat and your airways. It is normal to cough occasionally, but a cough that happens with other symptoms or lasts a long time may be a sign of a condition that needs treatment. ??? Take rxqa-kau-vhvffsc and prescription medicines only as told by your health care provider. ??? Always cover your mouth when you cough. ??? Contact a health care provider if you have new symptoms or a cough that does not get better after 2???3 weeks or gets worse. This information is not intended to replace advice given to you by your health care provider. Make sure you discuss any questions you have with your health care provider. Document Revised: 02/16/2019 Document Reviewed: 02/16/2019 Elsevier Patient Education ?? 2022 [employer]. Follow Up Care 08/23/2022 16:28:33 With:Odilon Davis MD Address: [address] [phone] When:1 week Emergency department Discharge instructions * Guille Lange MD: PERFORM Event Display: ED Discharge Information Authored Date: [id number] VALENCIA CONSTANZA Wilfrid :1980 Age:42 years Sex:Male Visit Date:08/23/2022 Primary Care Physician: Odilon Davis MD Discharge Instructions We would like to thank you for allowing us to assist you with your healthcare needs. The following includes patient education materials and information regarding your injury/illness. Diagnosis from Today's Visit Cough Vomiting Discharge Vitals Temperature??(Temporal Artery) 98.1 ??F (36.7 ??C) Heart Rate??(Peripheral) 89 Respiratory Rate?? 20 Blood Pressure?? 133/93?? Height?? 68.90 in (175.000 cm) Weight??(Estimated) 233.73 lb (106.00 kg) Allergies atomoxetine predniSONE??(Head pain) sulfa drugs What to Do Next Instructions from Your Care Team Thank you for coming to the emergency department today, it has been our pleasure to take care of you. ??Thankfully your chest x-ray today was read as clear by the radiologist without signs of pneumonia, collapsed lung, or other??lung problem. ??Your labs including cell counts, kidney function, and electrolytes were overall reassuring today. ??Your troponin (heart marker in the blood) was normal. ??You may use the prescribed Tessalon Perles to help with cough and the Zofran to help with nausea and vomiting.?? Please follow-up with your regular doctor within the next week or so for recheck and return to the emergency department if you have any new or concerning symptoms including??any new??chest pain, trouble breathing, abdominal pain, nausea, persistent vomiting,??or if you have any other symptoms that concern you. You Need to Schedule the Following Appointments Follow Up with??[facility], Odilon Arriaga MD When:??Within 1 week Where: [address] [address] [phone] You were treated today on an emergency basis; it may be knight to contact your primary care provider to notify them of your visit today. You may have been referred to your regular doctor or a specialist, please follow up as instructed. If your condition worsens or you can't get in to see the doctor, contact the Emergency Department. Medications What How Much When Why Instructions Next Dose New benzonatate (Tessalon Perles 100 mg oral capsule) 2 Capsules Oral (given by mouth) 3 times a day as needed for as needed for cough Cough Vomiting Duration: 7 Days Pickup at [facility] #[id number] New ondansetron (ondansetron 8 mg oral tablet, disintegrating) 1 tab Oral (given by mouth) 3 times a day Cough Vomiting Duration: 5 Days Pickup at [facility] #[id number] Unchanged aspirin (aspirin 81 mg oral tablet, chewable) 1 tab Oral (given by mouth) Every day Unchanged metoprolol (metoprolol succinate 100 mg oral tablet, extended release) 1 tab Oral (given by mouth) Every day Total daily dose is 125 mg ?? Unchanged multivitamin (multivitamin adult, oral tablet) [id number] [address] [facility] [address] [place], [place] [id number] [phone] Education Materials Cough, Adult Coughing is a reflex that clears your throat and your airways (respiratory system). Coughing helps to heal and protect your lungs. It is normal to cough occasionally, but a cough that happens with other symptoms or lasts a long time may be a sign of a condition that needs treatment. An acute cough may only last 2???3 weeks, while a chronic cough may last 8 or more weeks. Coughing is commonly caused by: ? Infection of the respiratory systemby viruses or bacteria. ? Breathing in substances that irritate your lungs. ? Allergies. ? Asthma. ? Mucus that runs down the back of your throat (postnasal drip). ? Smoking. ? Acid backing up from the stomach into the esophagus (gastroesophageal reflux). ? Certain medicines. ? Chronic lung problems. ? Other medical conditions such as heart failure or a blood clot in the lung (pulmonary embolism). Follow these instructions at home: Medicines ? Take wxaz-cnv-tgkybsb and prescription medicines only as told by your health care provider. ? Talk with your health care provider before you take a cough suppressant medicine. Lifestyle ? Avoid cigarette smoke. Do not use any products that contain nicotine or tobacco, such as cigarettes, e-cigarettes, and chewing tobacco. If you need help quitting, ask your health care provider. ? Drink enough fluid to keep your urine pale yellow. ? Avoid caffeine. ? Do not drink alcohol if your health care provider tells you not to drink. General instructions ? Pay close attention to changes in your cough. Tell your health care provider about them. ? Always cover your mouth when you cough. ? Avoid things that make you cough, such as perfume, candles, cleaning products, or campfire or tobacco smoke. ? If the air is dry, use a cool mist vaporizer or humidifier in your bedroom or your home to help loosen secretions. ? If your cough is worse at night, try to sleep in a semi-upright position. ? Rest as needed. ? Keep all follow-up visits as told by your health care provider. This is important. Contact a health care provider if you: ? Have new symptoms. ? Cough up pus. ? Have a cough that does not get better after 2???3 weeks or gets worse. ? Cannot control your cough with cough suppressant medicines and you are losing sleep. ? Have pain that gets worse or pain that is not helped with medicine. ? Have a fever. ? Have unexplained weight loss. ? Have night sweats. Get help right away if: ? You cough up blood. ? You have difficulty breathing. ? Your heartbeat is very fast. These symptoms may represent a serious problem that is an emergency. Do not wait to see if the symptoms will go away. Get medical help right away. Call your local emergency services (911 in the [place] Do not drive yourself to the hospital. Summary ? Coughing is a reflex that clears your throat and your airways. It is normal to cough occasionally, but a cough that happens with other symptoms or lasts a long time may be a sign of a condition that needs treatment. ? Take yfka-aro-aflsaoa and prescription medicines only as told by your health care provider. ? Always cover your mouth when you cough. ? Contact a health care provider if you have new symptoms or a cough that does not get better after 2???3 weeks or gets worse. This information is not intended to replace advice given to you by your health care provider. Make sure you discuss any questions you have with your health care provider. Document Revised: 02/16/2019 Document Reviewed: 02/16/2019 [employer] Patient Education ?? 2022 [employer] Tests Performed Medications and Immunizations Administered Given ondansetron, 4 mg, Oral Tessalon Perles, 200 mg, Oral Lab Test Name Test Result Date/Time WBC 6.8 x10^3/mcL 08/23/2022 17:00 EDT RBC 5.4 x10^6/mcL 08/23/2022 17:00 EDT Hgb 16.5 g/dL 08/23/2022 17:00 EDT Hct 47.9 % 08/23/2022 17:00 EDT MCV 89.0 fL 08/23/2022 17:00 EDT MCH 30.7 pg 08/23/2022 17:00 EDT MCHC 34.4 g/dL 08/23/2022 17:00 EDT RDW-CV 11.9 % 08/23/2022 17:00 EDT Platelets 315 x10^3/mcL 08/23/2022 17:00 EDT Neutro Auto 52.0 % 08/23/2022 17:00 EDT Lymph Auto 35.3 % 08/23/2022 17:00 EDT [place] Auto 9.3 % 08/23/2022 17:00 EDT Eos, Auto 2.1 % 08/23/2022 17:00 EDT Basophil Auto 1.0 % 08/23/2022 17:00 EDT Imm Gran Auto 0.3 % 08/23/2022 17:00 EDT Neutro Absolute 3.5 x10^3/mcL 08/23/2022 17:00 EDT Sodium Level 140 mmol/L 08/23/2022 17:00 EDT Potassium Level 3.8 mmol/L 08/23/2022 17:00 EDT Chloride Level 106 mmol/L 08/23/2022 17:00 EDT CO2 24 mmol/L 08/23/2022 17:00 EDT Alk Phos 66 unit/L 08/23/2022 17:00 EDT AST 24 unit/L 08/23/2022 17:00 EDT ALT 45 unit/L 08/23/2022 17:00 EDT BUN 12 mg/dL 08/23/2022 17:00 EDT Glucose Level 103 mg/dL 08/23/2022 17:00 EDT Creatinine Level 0.82 mg/dL 08/23/2022 17:00 EDT eGFR AA 112 08/23/2022 17:00 EDT eGFR Non-AA 112 08/23/2022 17:00 EDT Calcium Level 9.2 mg/dL 08/23/2022 17:00 EDT Protein Total 8.3 g/dL 08/23/2022 17:00 EDT Albumin Level 3.5 g/dL 08/23/2022 17:00 EDT Bilirubin Total 0.6 mg/dL 08/23/2022 17:00 EDT Lipase Level 28 unit/L 08/23/2022 17:00 EDT Troponin-I 6.9 pg/mL 08/23/2022 17:00 EDT Patient/Product Safety Coordinator Signature Patient Name:CONSTANZA BIRMINGHAM I have received this information and my questions have been answered. Patient/Product Safety Coordinator Name: Patient/Product Safety Coordinator Signature: Relationship to Patient: Witness Name/Signature: Date: Electronically Signed on: 08/23/2022 18:02 EDTSigned by:CHRIS Discharge summary * Constanza Reynolds: PERFORM Event Display: Discharge Note Authored Date: * Constanza Reynolds: PERFORM Event Display: Discharge Note Authored Date: Diagnosis: 1. Cough Comment: Diagnosis: 2. Vomiting Comment: Diagnosis: Cough Comment: Diagnosis: Vomiting Comment: Additional Orders: Comment: Discontinued: CV EKG ED,08/23/22 16:29:00 EDT, Routine, Reason: Other (please specify), Stop date and time 08/23/22 16:29:00 EDT, ORD_SET_REQ_DT_RANGE, Randy's Internal Person Id Electronically Signed on 08/23/22 06:10 PM Constanza Reynolds Patient Care team information Care Team Personnel Name: Marine Escobar MACHINE FIXER Position: Physician Member Role: Nurse Practitioner Name: Odilon Davis MD Position: No Access Member Role: Informed Provider Address: Address: [id number] [place] [address] Name: Jessica Moran Position: Nurse Member Role: ED Nurse Name: Guille Lange MD Position: Physician Member Role: ED Physician Address: Address: [address] [place] [address] [address] [place] [address] Care Team Related Persons Name: ARDEN PETTIT
--- OUTSIDE RECORDS SUMMARY | 2024-02-11 20:37 | XMS_ITS | Continuity of Care Document ---
Author Organization [facility] Address [address] [place] [address] Care Team Providers Care Fisher Oyster Name Role Phone Primeau IPHC, Odilon Arriaga Primary Care Physician Encounter [facility] [id number] Date(s): 01/13/23 - 01/13/[address] [address] Discharge Disposition: Home or Self Care Attending Physician: Agustin Brooke MD Admitting Physician: Agustin Brooke MD Allergies, Adverse Reactions, Alerts Substance Reaction Severity Status atomoxetine Unknown Active sulfa drugs Unknown Active predniSONE Head pain Unknown Active Immunizations Given and Recorded Vaccine Date Status [...] 0 Refill(s) Start Date: 05/29/22 Status: Ordered Problem List Condition Confirmation Course Effective Dates [facility]us Informant Acute tear of medial meniscus [...] Active Tubular adenoma of colon Confirmed Active 11840 R/T Covid. ( in [facility] ) [...] Former tobacco user Tobacco Use:. Sex Male Patient Care team information Care Team Personnel Name: Marine Escobar SENIOR INTERACTIVE DEVELOPER Position: Physician Member Role: Nurse Practitioner Name: Odilon Davis MD Position: No Access Member Role: Informed Provider Address: Address: [address] [address] Care Team Related Persons Name: ARDEN PETTIT
--- OUTSIDE RECORDS SUMMARY | 2024-02-11 20:37 | XMS_ITS | Continuity of Care Document ---
Author Organization [facility] Address [address] [place] [address] Care Team Providers Care Information Security Analyst Name Role Phone Odilon Davis Primary Care Physician Encounter [facility] [id number] Date(s): 05/29/22 - 05/29/[address] [address] Discharge Disposition: Home or Self Care Attending Physician: Benedicto Mcdaniels MD Admitting Physician: Benedicto Mcdaniels MD Referring Physician: Odilon Cedeno MD Allergies, Adverse Reactions, Alerts Substance Reaction Severity Status atomoxetine Unknown Active sulfa drugs Unknown Active predniSONE Head pain Unknown Active Assessment and Plan Diagnostic Tests Pending * Surgical Pathology [facility] 05/29/22 Functional Status 05/29/22 ADLs Independent Family Member Travel History No recent t ravel Recent Travel History No recent travel Other exposure to Infectious Disease Non e 05/23/22 Living Situation Home independently Immunizations Given and Recorded Vaccine Date Status [...] Effective Dates Status Health St [facility] Informant Depression Confirmed Active Eczema Confirmed Active GERD (gastroesophageal reflux disease) Confirmed Active HTN (hypertension) Confirmed Active IBS - Irritable bowel syndrome Confirmed Active Injury of left hand Confirmed Active Knee pain Confirmed Active Palpitations Confirmed Active Paroxysmal nocturnal dyspnea Confirmed Active Pneumothorax 1 Confirmed Active Postural orthostatic tachycardia syndrome Confirmed Active 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 ( in [facility] ) 2Pt states he has POTS ( Postural Orthostatic Tacycardia Syndrome ) Procedures Procedure Date Related Diagnosis Body Site Status Colonoscopy 03/30/18 Completed Arthroscopy of knee 1, 2 Completed 1in 2015 2Right - for a Meniscus tear. Vital Signs Most recent to oldest [Reference Range]: 1 2 3 Temperature Oral [35.8-37.3 Deg C] 37 Deg C (05/29/22 7:16 AM) Temperature Temporal Artery [36-38 Deg C] 36.4 Deg C (05/29/22 9:10 AM) 36.9 Deg C (05/29/22 8:25 AM) Temperature Temporal Artery (DegF) [97.3-100 Deg F] 97.52 Deg F (05/29/22 9:10 AM) 98.42 Deg F (05/29/22 8:25 AM) Peripheral Pulse Rate [60-100 bpm] 90 bpm (05/29/22 9:10 AM) 80 bpm (05/29/22 9:00 AM) 81 bpm (05/29/22 8:45 AM) Heart Rate Monitored [60-100 bpm] 87 bpm (05/29/22 9:10 AM) 81 bpm (05/29/22 9:00 AM) 79 bpm (05/29/22 8:45 AM) Respiratory Rate [12-24 br/min] 17 br/min (05/29/22 9:10 AM) 16 br/min (05/29/22 9:00 AM) 15 br/min (05/29/22 8:45 AM) Blood Pressure [90-140/60-90 mmHg] 117/80mmHg (05/29/22 9:10 AM) 106/69mmHg (05/29/22 9:00 AM) 108/79mmHg (05/29/22 8:45 AM) Mean Arterial Pressure, Cuff [65-140 mmHg] 92 mmHg (05/29/22 9:10 AM) 81 mmHg (05/29/22 9:00 AM) 89 mmHg (05/29/22 8:45 AM) Weight 110.400 kg (05/29/22 7:16 AM) Weight Dosing 110.400 kg (05/29/22 7:16 AM) Height 175.000 cm (05/29/22 7:16 AM) Height/Length Dosing 175.000 cm (05/29/22 7:16 AM) Body Mass Index 36.050 kg/m2 (05/29/22 7:16 AM) Social History Social History Type Response Tobacco Former tobacco user Tobacco Use:. Sex Male Hospital Discharge Instructions Patient Education 05/29/2022 07:36:52 ss colonoscopy discharge instructions (CUSTOM) COLONOSCOPY / SIGMOIDOSCOPY Following day: Return to full activity, including work. Diet: Eat and drink normally, unless instructed otherwise. Treatment for common after affects: Mild abdominal pain, bloating, or excessive gas: Rest, eat lightly and use a heating pad. Symptoms to watch for and report to your physician: SEVERE abdominal pain or bloating. Fever within 24 hours after procedure. A large amount of rectal bleeding. (A small amount of blood from the rectum is not serious, especially if hemorrhoids are present.) If you have had a Colonoscopy: Do not attempt to drive a vehicle or operate power equipment of any kind for at least 24 hours after discharge from the hospital. Do not consume alcoholic beverages or other mood-altering drugs on the day of surgery. Mild irritation at needle site: Apply warm, moist pack to area for 20 minutes four times a day for 2-3 days. Call physician if persistent redness and/or drainage at needle site. In the event of any problems after surgery, do not hesitate to contact your doctor, [facility] , or the Emergency Room at [phone]. Diagnosis: diverticulosis Doctor: Joyce 05/29/2022 07:36:29 Diverticulosis Diverticulosis Diverticulosis is a condition that develops when small pouches (diverticula) form in the wall of the large intestine (colon). The colon is where water is absorbed and stool (feces) is formed. The pouches form when the inside layer of the colon pushes through weak spots in the outer layers of the colon. You may have a few pouches or many of them. The pouches usually do not cause problems unless they become inflamed or infected. When this happens, the condition is called diverticulitis. What are the causes? The cause of this condition is not known. What increases the risk? The following factors may make you more likely to develop this condition: ??? Being older than age 60. Your risk for this condition increases with age. Diverticulosis is rare among people younger than age 30. By age 80, many people have it. ??? Eating a low-fiber diet. ??? Having frequent constipation. ??? Being overweight. ??? Not getting enough exercise. ??? Smoking. ??? Taking pxhd-ubb-dhshbpz pain medicines, like aspirin and ibuprofen. ??? Having a family history of diverticulosis. What are the signs or symptoms? In most people, there are no symptoms of this condition. If you do have symptoms, they may include: ??? Bloating. ??? Cramps in the abdomen. ??? Constipation or diarrhea. ??? Pain in the lower left side of the abdomen. How is this diagnosed? Because diverticulosis usually has no symptoms, it is most often diagnosed during an exam for othercolon problems. The condition may be diagnosed by: ??? Using a flexible scope to examine the colon (colonoscopy). ??? Taking an X-ray of the colon after dye has been put into the colon (barium enema). ??? Having a CT scan. How is this treated? You may not need treatment for this condition. Your health care provider may recommend treatment toprevent problems. You may need treatment if you have symptoms or if you previously had diverticulitis. Treatment may include: ??? Eating a high-fiber diet. ??? Taking a fiber supplement. ??? Taking a live bacteria supplement (probiotic). ??? Taking medicine to relax your colon. Follow these instructions at home: Medicines ??? Take nkhp-eng-lyesdvl and prescription medicines only as told by your health care provider. ??? If told by your health care provider, take a fiber supplement or probiotic. Constipation prevention Your condition may cause constipation. To prevent or treat constipation, you may need to: ??? Drink enough fluid to keep your urine pale yellow. ??? Take jark-wlv-xuyxrgs or prescription medicines. ??? Eat foods that are high in fiber, such as beans, whole grains, and fresh fruits and vegetables. ??? Limit foods that are high in fat and processed sugars, such as fried or sweet foods. General instructions ??? Try not to strain when you have a bowel movement. ??? Keep all follow-up visits as told by your health care provider. This is important. Contact a health care provider if you: ??? Have pain in your abdomen. ??? Have bloating. ??? Have cramps. ??? Have not had a bowel movement in 3 days. Get help right away if: ??? Your pain gets worse. ??? Your bloating becomes very bad. ??? You have a fever or chills, and your symptoms suddenly get worse. ??? You vomit. ??? You have bowel movements that are bloody or black. ??? You have bleeding from your rectum. Summary ??? Diverticulosis is a condition that develops when small pouches (diverticula) form in the wall of the large intestine (colon). ??? You may have a few pouches or many of them. ??? This condition is most often diagnosed during an exam for other colon problems. ??? Treatment may include increasing the fiber in your diet, taking supplements, or taking medicines. This information is not intended to replace advice given to you by your health care provider. Make sure you discuss any questions you have with your health care provider. Document Revised: 08/27/2019 Document Reviewed: 08/27/2019 [employer] Patient Education ?? 2021 [employer] Discharge instructions * Cathy Napoles: PERFORM Event Display: Discharge Instructions Authored Date: [id number] CONSTANZA BIRMINGHAM :1980 Age:41 years Sex:Male Visit Date:05/29/2022 Primary Care Physician: Sapna DIAZ, Odilon Arriaga MD Hospital Discharge Instructions We would like to thank you for allowing us to assist you with your healthcare needs. The following includes patient education materials and information regarding your injury/illness. Your Next Steps Discharge Orders Discharge Patient Instructions, Rest today. Resume diet and activities as tolerated. Education Materials COLONOSCOPY / SIGMOIDOSCOPY ? Following day: Return to full activity, including work. Diet: Eat and drink normally, unless instructed otherwise. ? Treatment for common after affects: Mild abdominal pain, bloating, or excessive gas: Rest, eat lightly and use a heating pad. ? Symptoms to watch for and report to your physician: SEVERE abdominal pain or bloating. ? Fever within 24 hours after procedure. ? A large amount of rectal bleeding. (A small amount of blood from the rectum is not serious, especially if hemorrhoids are present.) ? If you have had a Colonoscopy: Do not attempt to drive a vehicle or operate power equipment of any kind for at least 24 hours after discharge from the hospital. ? Do not consume alcoholic beverages or other mood-altering drugs on the day of surgery. ? Mild irritation at needle site: Apply warm, moist pack to area for 20 minutes four times a day for 2-3 days. ? Call physician if persistent redness and/or drainage at needle site. ? In the event of any problems after surgery, do not hesitate to contact your doctor, [facility] , or the Emergency Room at [phone]. Diagnosis: diverticulosis Doctor: Joyce Diverticulosis Diverticulosis is a condition that develops when small pouches (diverticula) form in the wall of the large intestine (colon). The colon is where water is absorbed and stool (feces) is formed. The pouches form when the inside layer of the colon pushes through weak spots in the outer layers of the colon. You may have a few pouches or many of them. The pouches usually do not cause problems unless they become inflamed or infected. When this happens, the condition is called diverticulitis. What are the causes? The cause of this condition is not known. What increases the risk? The following factors may make you more likely to develop this condition: ? Being older than age 60. Your risk for this condition increases with age. Diverticulosis is rare among people younger than age 30. By age 80, many people have it. ? Eating a low-fiber diet. ? Having frequent constipation. ? Being overweight. ? Not getting enough exercise. ? Smoking. ? Taking nfeu-mml-xfibvmw pain medicines, like aspirin and ibuprofen. ? Having a family history of diverticulosis. What are the signs or symptoms? In most people, there are no symptoms of this condition. If you do have symptoms, they may include: ? Bloating. ? Cramps in the abdomen. ? Constipation or diarrhea. ? Pain in the lower left side of the abdomen. How is this diagnosed? Because diverticulosis usually has no symptoms, it is most often diagnosed during an exam for othercolon problems. The condition may be diagnosed by: ? Using a flexible scope to examine the colon (colonoscopy). ? Taking an X-ray of the colon after dye has been put into the colon (barium enema). ? Having a CT scan. How is this treated? You may not need treatment for this condition. Your health care provider may recommend treatment toprevent problems. You may need treatment if you have symptoms or if you previously had diverticulitis. Treatment may include: ? Eating a high-fiber diet. ? Taking a fiber supplement. ? Taking a live bacteria supplement (probiotic). ? Taking medicine to relax your colon. Follow these instructions at home: Medicines ? Take moqb-jon-ltaikcr and prescription medicines only as told by your health care provider. ? If told by your health care provider, take a fiber supplement or probiotic. Constipation prevention Your condition may cause constipation. To prevent or treat constipation, you may need to: ? Drink enough fluid to keep your urine pale yellow. ? Take yumz-fen-qsvvubf or prescription medicines. ? Eat foods that are high in fiber, such as beans, whole grains, and fresh fruits and vegetables. ? Limit foods that are high in fat and processed sugars, such as fried or sweet foods. General instructions ? Try not to strain when you have a bowel movement. ? Keep all follow-up visits as told by your health care provider. This is important. Contact a health care provider if you: ? Have pain in your abdomen. ? Have bloating. ? Have cramps. ? Have not had a bowel movement in 3 days. Get help right away if: ? Your pain gets worse. ? Your bloating becomes very bad. ? You have a fever or chills, and your symptoms suddenly get worse. ? You vomit. ? You have bowel movements that are bloody or black. ? You have bleeding from your rectum. Summary ? Diverticulosis is a condition that develops when small pouches (diverticula) form in the wall of the large intestine (colon). ? You may have a few pouches or many of them. ? This condition is most often diagnosed during an exam for other colon problems. ? Treatment may include increasing the fiber in your diet, taking supplements, or taking medicines. This information is not intended to replace advice given to you by your health care provider. Make sure you discuss any questions you have with your health care provider. Document Revised: 08/27/2019 Document Reviewed: 08/27/2019 [employer] Patient Education ?? 2021 [employer] Patient Name:CONSTANZA BIRMINGHAM I have received this information and my questions have been answered. Patient/Tenter Frame Back Tender Name: Patient/Tenter Frame Back Tender Signature: Relationship to Patient: Witness Name/Signature: Date: Electronically Signed on: 05/29/2022 08:37 EDTSigned by:MIGEL History and physical note * Joyce [facility], Benedicto Ventura MD: PERFORM Event Display: History and Physical Authored Date: [id number] CONSTANZA BIRMINGHAM :1980 Age:41 years Sex:Male Visit Date:05/29/2022 Primary Care Physician: Sapna DIAZ, Odilon Arriaga MD History of Present Illness 41-year-old male??presents for repeat colonoscopy.?? He had a scope 3 years ago for rectal bleeding??and was found to have a hemorrhagic 1.5 cm??pedunculated sigmoid polyp.?? He has no current rectalcomplaints and his family history is negative. Review of Systems Has been having some intermittent??issues with chest pain and has been seen in the emergency room??where cardiac causes have been excluded.?? He also has a history of episodic hypotension??which sounds??primarily positional.?? No cough, sputum production or wheezing.?? No current abdominal pain or rectal bleeding. Physical Exam Vitals & Measurements T:??37?C ??(Oral)?? HR:??100??(Peripheral)?? RR:??18?? BP:??150/91?? SpO2:??97%?? HT:??175.000??cm?? WT:??110.400??kg?? BMI:??36.050?? O2 Therapy:??Room air?? Skin warm and dry, neck is supple without??cervical or supraclavicular??adenopathy. ??Lungs clear, heart regular without murmurs.?? Abdomen soft. Assessment/Plan Ordered: Dextrose 5% in Lactated Ringers Injection 1,000 mL, Total Volume (mL): 1,000, 1,000 mL, Soln-IV, IV, 30 mL/hr, Start Date: 05/29/22 7:15:00 EDT, Populate Charting Weight From Order Valium, 2.5 mg = 0.5 mL, IV Push, Soln-IV, every 2 min for 10 times, PRN sedation, First Dose: 05/29/22 6:57:00 EDT, Stop Date: Limited # of times, Physician Stop, Routine fentaNYL, 25 mcg = 0.5 mL, IV Push, Soln, every 2 min for 12 times, PRN sedation, First Dose: 05/29/22 6:57:00 EDT, Stop Date: Limited # of times, Physician Stop, Routine flumazenil, 0.2 mg = 2 mL, IV Push, Soln-IV, As Directed for 10 times, PRN sedation, Administer over: 15 seconds, First Dose: 05/29/22 6:57:00 EDT, Stop Date: Limited # of times, Physician Stop, Routine, mL/hr lidocaine 1% injectable solution, 5 mg 0.5 mL, Intradermal, Soln, As Directed, PRN other (see comment), First Dose: 05/29/22 7:15:00 EDT, Routine Versed, 1 mg = 1 mL, IV Push, Soln, every 2 min for 10 times, PRN sedation, First Dose: 05/29/22 6:57:00 EDT, Stop Date: Limited # of times, Physician Stop, Routine naloxone, 0.08 mg = 0.2 mL, IV Push, Soln, every 2 min for 10 times, PRN sedation, First Dose: 05/29/22 6:57:00 EDT, Stop Date: Limited # of times, Physician Stop, Routine Communication Order, 05/29/22 6:57:00 EDT, Nursing to administer and doses via IV push per verbal instruction from MD at bedside immediately prior and during conscious sedation procedure. NPO, 05/29/22 7:15:00 EDT, Constant Indicator Obtain Surgical Consent, 05/29/22 7:15:00 EDT, colonoscopy for hx colon polys Oxygen Therapy, Stop date 05/29/22 6:57:00 EDT, Simple Mask to maintain SpO2 of 90% or greater Peripheral IV Insertion, 05/29/22 7:15:00 EDT Surgical Pathology [facility], AP Specimen, Routine Collect, 05/29/22 6:57:00 EDT, every morning, Lab Collect, Print Label Vital Signs, 05/29/22 6:57:00 EDT, every 5 min, Every 5 minutes with cardiac and respiratory assessment We are going to proceed with a repeat colonoscopy. ??We discussed the procedure, indications and risk. ??Consent is signed and on the chart. 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 Prediabetes Sinus tachycardia Surgery Tachycardia Tubular adenoma of colon Historical No qualifying data Procedure/Surgical History ???Colonoscopy (03/31/2018)???Arthroscopy of knee Medications Inpatient Dextrose 5% in Lactated Ringers Injection 1,000 mL, 1000 mL, IV fentaNYL, 25 mcg= 0.5 mL, IV Push, every 2 min, PRN flumazenil, 0.2 mg= 2 mL, IV Push, As Directed, PRN lidocaine 1% injectable solution, 5 mg= 0.5 mL, Intradermal, As Directed, PRN naloxone, 0.08 mg= 0.2 mL, IV Push, every 2 min, PRN Valium, 2.5 mg= 0.5 mL, IV Push, every 2 min, PRN Versed, 1 mg= 1 mL, IV Push, every 2 min, PRN Home aspirin 81 mg oral tablet, chewable, 81 mg= 1 tab, Oral, Daily metoprolol succinate 100 mg oral tablet, extended release, 100 mg= 1 tab, Oral, Daily multivitamin adult, oral tablet Allergies atomoxetine predniSONE??(Head pain) sulfa drugs Social History Alcohol Never Electronic Cigarette/Vaping Electronic Cigarette Use: Use, within last 90 days. Employment/School Unemployed Home/Environment Lives with Significant other. Other Substance Use Tobacco Former tobacco user Tobacco Use:. Immunizations Vaccine Date Status tetanus/diphth/pertuss (Tdap) adult/adol 10/11/2006 Recorded Electronically Signed on 05/29/22 08:00 AM Benedicto Mcdaniels MD * Ghada Linares: PERFORM Event Display: History and Physical Authored Date: [id number] CONSTANZA BIRMINGHAM :1980 Age:41 years Sex:Male Primary Care Physician: Odilon Cedeno MD History of colon polyps. Previous colonoscopy and path reports have been scanned into [facility] Electronically Signed on 03/19/22 10:09 AM Ghada Linares Patient Care team information Care Team Personnel Name: Marine Escobar NP Position: Physician Member Role: Nurse Practitioner Name: Odilon Davis MD Position: No Access Member Role: Primary Care Physician Address: Address: [address] Care Team Related Persons Name: ARDEN PETTIT
--- OUTSIDE RECORDS SUMMARY | 2024-02-11 20:37 | XMS_ITS | Continuity of Care Document ---
Author Organization [facility] Address [address] [place] [address] Care Team Providers Care Water Safety Instructor Name Role Phone [facility], Odilon Arriaga Primary Care Physician Encounter [facility] [id number] Date(s): 05/25/22 - 05/25/[address] [address] Discharge Disposition: Home or Self Care Attending Physician: Kerri Stephenson MD Admitting Physician: Kerri Stephenson MD Referring Physician: Kerri Stephenson MD Allergies, Adverse Reactions, Alerts Substance Reaction Severity Status atomoxetine Unknown Active sulfa drugs Unknown Active predniSONE Head pain Unknown Active Assessment and Plan Future Appointments Immunizations Given and Recorded Vaccine [...] 0 Refill(s) Start Date: 08/03/21 Status: Ordered Problem List Condition Confirmation Course [...] Active Tubular adenoma of colon Confirmed Active 89634 R/T Covid. ( in [facility] ) [...] information Care Team Personnel Name: Marine Escobar WATERPROOFING SUPERVISOR Position: Physician Member Role: Nurse Practitioner Name: Odilon Davis MD Position: No Access Member Role: Primary Care Physician Address: Address: [address] [address]- Care Team Related Persons Name: ARDEN PETTIT Address: Home
--- OUTSIDE RECORDS SUMMARY | 2024-02-11 20:37 | XMS_ITS | Continuity of Care Document ---
Author Organization [facility] Address [address] [place] [address] Care Team Providers Care Meteorology Faculty Member Name Role Phone Primeau IPHC, Odilon Arriaga Primary Care Physician Encounter [facility] [id number] Date(s): 12/10/22 - 12/10/[address] [address] Discharge Disposition: Home or Self Care Attending Physician: Eda Arguelles PA-C Admitting Physician: Eda Arguelles PA-C Allergies, Adverse Reactions, Alerts Substance Reaction Severity Status atomoxetine Unknown Active sulfa drugs Unknown Active predniSONE Head pain Unknown Active Assessment and Plan Diagnostic Tests Pending * Lyme Antibody [facility] 12/10/22 * Anaplasma and Babesia Testing by PCR, WB [facility] 12/10/22 * Vitamin D, 25-OH Total [facility] 12/10/22 Immunizations Given and Recorded Vaccine Date Status [...] Active Tubular adenoma of colon Confirmed Active 50100 R/T Covid. ( in [facility] ) [...] Meniscus tear. Results Laboratory List Name Date Automated Diff 12/10/22 CBC w/ Diff 12/10/22 Comprehensive Metabolic Panel 12/10/22 HIV 1/2 Ag and Ab, 4th Generation [facility] Most recent to oldest [Reference Range]: 1 WBC [5.0-10.0 x10^3/mcL] 7.5 x10^3/mcL (12/10/22 3:44 PM) RBC [4.6-6.0 x10^6/mcL] 5.5 x10^6/mcL (12/10/22 3:44 PM) Neutro Auto [40.0-75.0 %] 65.6 % (12/10/22 3:44 PM) Lymph Auto [20.0-50.0 %] 22.9 % (12/10/22 3:44 PM) [place] Auto [2.0-15.0 %] 8.4 % (12/10/22 3:44 PM) Basophil Auto [0.0-1.0 %] 0.9 % (12/10/22 3:44 PM) BUN [7-18 mg/dL] 15 mg/dL (12/10/22 3:44 PM) Glucose Level [74-106 mg/dL] 105 mg/dL (12/10/22 3:44 PM) Potassium Level [3.5-5.1 mmol/L] 3.8 mmo l/L (12/10/22 3:44 PM) MCV [80.0-96.0 fL] 91.1 fL (12/10/22 3:44 PM) AST [15-37 unit/L] 23 unit/L (12/10/22 3:44 PM) ALT [16-63 unit/L] 40 unit/L (12/10/22 3:44 PM) MCHC [31.0-35.0 g/dL] 34.1 g/dL (12/10/22 3:44 PM) Sodium Level [136-145 mmol/L] 139 mmol/L (12/10/22 3:44 PM) Hct [41.0-51.0 %] 50.2 % (12/10/22 3:44 PM) Calcium Level [8.5-10.1 mg/dL] 9.4 mg/dL (12/10/22 3:44 PM) Albumin Level [3.4-5.0 g/dL] 3.9 g/dL (12/10/22 3:44 PM) Protein Total [6.4-8.2 g/dL] 8.5 g/dL *HI* (12/10/22 3:44 PM) MCH [26.0-32.0 pg] 31.0 pg (12/10/22 3:44 PM) Neutro Absolute 4.9 x10^3/mcL *NA* (12/10/22 3:44 PM) Bilirubin Total [0.2-1.0 mg/dL] 0.6 mg/d L (12/10/22 3:44 PM) Hgb [14.0-18.0 g/dL] 17.1 g/dL (12/10/22 3:44 PM) Alk Phos [46-146 unit/L] 68 unit/L (12/10/22 3:44 PM) Platelets [130-450 x10^3/mcL] 325 x10^3/ mcL (12/10/22 3:44 PM) CO2 [21-32 mmol/L] 26 mmol/L (12/10/22 3:44 PM) eGFR Non-AA [>=60] 109 (12/10/22 3:44 PM) eGFR AA [>=60] 109 (12/10/22 3:44 PM) Chloride Level [98-107 mmol/L] 103 mmol/ L (12/10/22 3:44 PM) RDW-CV [11.5-14.5 %] 12.5 % (12/10/22 3:44 PM) Imm Gran Auto [0.0-0.9 %] 0.3 % (12/10/22 3:44 PM) Creatinine Level [0.70-1.30 mg/dL] 0.90 mg/dL (12/10/22 3:44 PM) HIV 1 and 2 Ab/p24 Ag, 4th Gen [facility] [Nega tive] Negative 1 *NA* (12/10/22 3:44 PM) Eos, Auto [1.0-6.0 %] 1.9 % (12/10/22 3:44 PM) 1Result Comment: If acute HIV-1 infection is suspected in a high risk patient, submit plasma specimen for HIV-1 RNA quantitation test. Fourth Generation assay performed on the Siemens Centaur XPT. Test performed [place] [address] Social History Social History Type Response Tobacco Former tobacco user Tobacco Use:. Sex Male Patient Care team information Care Team Personnel Name: Marine Escobar FABRICATION MACHINE OPERATOR Position: Physician Member Role: Nurse Practitioner Name: Odilon Davis MD Position: No Access Member Role: Informed Provider Address: Address: [address] Care Team Related Persons Name: ARDEN PETTIT
--- OUTSIDE RECORDS SUMMARY | 2024-02-11 20:37 | XMS_ITS | Continuity of Care Document ---
Author Organization [facility] Address [address] [place] [address] Care Team Providers Care Corncob Pipe Supervisor Name Role Phone Primeau IPHC, Odilon Arriaga Primary Care Physician Encounter [facility] [id number] Date(s): 05/07/22 - 05/07/[address] [address] Discharge Disposition: Home or Self Care Attending [...] Active Tubular adenoma of colon Confirmed Active 57554 R/T Covid. ( in [facility] ) 2Pt states he has POTS ( Postural Orthostatic Tacycardia Syndrome ) Procedures Procedure Date Related Diagnosis Body Site Status Colonoscopy 03/30/18 Completed Arthroscopy of knee 1, 2 Completed 1in 2015 2Right - for a Meniscus tear. Vital Signs Most recent to oldest [Reference Range]: 1 Heart Rate Monitored [60-100 bpm] 97 bpm (05/07/22 1:25 PM) Social History Social History Type Response Tobacco Former tobacco user Tobacco Use:. Sex Male Patient Care team information Care Team Personnel Name: Marine Escobar NP Position: Physician Member Role: Nurse Practitioner Name: Odilon Davis MD Position: No Access Member Role: Primary Care Physician Address: Address: [id number] [place] [address] Care Team Related Persons Name: ARDEN PETTIT Address: Home
--- OUTSIDE RECORDS SUMMARY | 2024-02-11 20:37 | XMS_ITS | Continuity of Care Document ---
Author Organization [facility] Address [address] [place] [address] Care Team Providers Care Dog Barber Name Role Phone Sapna KRISHNAOdilon Primary Care Physician Encounter [facility] [id number] Date(s): 01/02/22 - 01/02/[address] [address] Discharge Disposition: Home or Self Care Attending Physician: Sarah Esquivel Admitting Physician: Sarah Esquivel Referring Physician: Sarah Esquivel Allergies, Adverse Reactions, Alerts Substance Reaction Severity [...] disease) Confirmed Active HTN (hypertension) Confirmed Active Injury of left hand Confirmed Active Knee pain Confirmed Active Palpitations Confirmed Active Paroxysmal nocturnal dyspnea Confirmed Active Postural orthostatic tachycardia syndrome Confirmed Active Prediabetes Confirmed Active Sinus tachycardia Confirmed Active Tachycardia Confirmed Active Tubular adenoma of colon Confirmed Active Results Laboratory List Name Date Amylase Level 01/02/22 CBC w/ Diff 01/02/22 Comprehensive Metabolic Panel 01/02/22 Lipase Level 01/02/22 Sedimentation Rate (ESR) 01/02/22 Automated Diff 01/02/22 Most recent to oldest [Reference Range]: 1 WBC [5.0-10.0 x10^3/mcL] 6.9 x10^3/mcL (01/02/22 4:50 PM) RBC [4.6-6.0 x10^6/mcL] 5.1 x10^6/mcL (01/02/22 4:50 PM) Neutro Auto [40.0-75.0 %] 60.0 % (01/02/22 4:50 PM) Lymph Auto [20.0-50.0 %] 26.7 % (01/02/22 4:50 PM) [place] Auto [2.0-15.0 %] 10.0 % (01/02/22 4:50 PM) Basophil Auto [0.0-1.0 %] 1.0 % (01/02/22 4:50 PM) BUN [7-18 mg/dL] 17 mg/dL (01/02/22 4:50 PM) Glucose Level [74-106 mg/dL] 111 mg/dL *HI* (01/02/22 4:50 PM) Potassium Level [3.5-5.1 mmol/L] 4.0 mmo l/L (01/02/22 4:50 PM) MCV [80.0-96.0] 90.8 (01/02/22 4:50 PM) AST [15-37 unit/L] 33 unit/L (01/02/22 4:50 PM) Amylase Level [25-115 unit/L] 77 unit/L (01/02/22 4:50 PM) ALT [16-63 unit/L] 53 unit/L (01/02/22 4:50 PM) MCHC [31.0-35.0 g/dL] 34.3 g/dL (01/02/22 4:50 PM) Sodium Level [136-145 mmol/L] 136 mmol/L (01/02/22 4:50 PM) Hct [41.0-51.0 %] 46.3 % (01/02/22 4:50 PM) Lipase Level [16-77 unit/L] 32 unit/L (01/02/22 4:50 PM) Calcium Level [8.5-10.1 mg/dL] 8.8 mg/dL (01/02/22 4:50 PM) Albumin Level [3.4-5.0 g/dL] 3.7 g/dL (01/02/22 4:50 PM) Protein Total [6.4-8.2 g/dL] 8.1 g/dL (01/02/22 4:50 PM) MCH [26.0-32.0 pg] 31.2 pg (01/02/22 4:50 PM) Neutro Absolute 4.2 x10^3/mcL *NA* (01/02/22 4:50 PM) Bilirubin Total [0.2-1.0 mg/dL] 0.4 mg/d L (01/02/22 4:50 PM) Hgb [14.0-18.0 g/dL] 15.9 g/dL (01/02/22 4:50 PM) Alk Phos [46-146 unit/L] 76 unit/L (01/02/22 4:50 PM) Platelets [130-450 x10^3/mcL] 268 x10^3/ mcL (01/02/22 4:50 PM) CO2 [21-32 mmol/L] 27 mmol/L (01/02/22 4:50 PM) eGFR Non-AA [>=60] 107 (01/02/22 4:50 PM) eGFR AA [>=60] 107 (01/02/22 4:50 PM) Chloride Level [98-107 mmol/L] 105 mmol/ L (01/02/22 4:50 PM) RDW-CV [11.5-17.0 %] 12.1 % (01/02/22 4:50 PM) Imm Gran Auto [0.0-0.9 %] 0.3 % (01/02/22 4:50 PM) Creatinine Level [0.70-1.30 mg/dL] 0.92 mg/dL (01/02/22 4:50 PM) Eos, Auto [1.0-6.0 %] 2.0 % (01/02/22 4:50 PM) ESR, [place] [0-20 mm/hr] 8 mm/hr (01/02/22 4:50 PM) Social History Social History Type Response Tobacco Former tobacco user Tobacco Use:. Sex Male Patient Care team information Personnel Name: Odilon Cedeno MD Address: Address: [address] [address]- [place]
--- OUTSIDE RECORDS SUMMARY | 2024-02-11 20:37 | XMS_ITS | Continuity of Care Document ---
Author Organization [facility] Address [address] [place] [address] Care Team Providers Care Drafter Directional Survey Name Role Phone Primeau IPHC, Odilon Arriaga Primary Care Physician Encounter [facility] [id number] Date(s): 11/19/22 - 11/19/[address] [address] Discharge Disposition: Home or Self Care Attending Physician: Eda Arguelles PA-C Admitting Physician: Eda Arguelles PA-C Referring Physician: Eda Arguelles PA-C Allergies, Adverse Reactions, Alerts Substance Reaction Severity Status atomoxetine Unknown Active sulfa drugs Unknown Active predniSONE Head pain Unknown Active Assessment and Plan Diagnostic Tests Pending * Chlamydia/N. gonorrhoeae Amp RNA [facility] 11/19/22 * HIV 1/2 Ag and Ab, 4th Generation [facility] 11/19/22 * Syphilis Serology [facility] 11/19/22 * Acute Hepatitis Profile, S [facility] 11/19/22 * HSV Type 1/2 Type Specific Abs IgG [facility] 11/19/22 Immunizations Given and Recorded Vaccine Date Status [...] Active Tubular adenoma of colon Confirmed Active 29949 R/T Covid. ( in [facility] ) [...] information Care Team Personnel Name: Marine Escobar CLOTH FRAMER Position: Physician Member Role: Nurse Practitioner Name: Odilon Davis MD Position: No Access Member Role: Informed Provider Address: Address: [address] Care Team Related Persons Name: ARDEN PETTIT
--- OUTSIDE RECORDS SUMMARY | 2024-02-11 20:37 | XMS_ITS | Continuity of Care Document ---
Author Organization [facility] Address [address] [place] [address] Care Team Providers Care Embalmer Assistant Name Role Phone [facility], Odilon Arriaga Primary Care Physician Encounter [facility] [id number] Date(s): 04/09/22 - 04/09/[address] [address] Encounter Diagnosis Chest pain(Discharge Diagnosis) - 04/09/22 Discharge Disposition: Home or Self Care Attending Physician: Darrion Heller MD Admitting Physician: Darrion Heller MD Allergies, Adverse Reactions, Alerts Substance Reaction Severity Status atomoxetine Unknown Active sulfa drugs Unknown Active predniSONE Head pain Unknown Active Assessment and Plan Future Appointments Functional Status 04/09/22 Other exposure to Infectious Disease Non e Immunizations Given and Recorded Vaccine Date Status [...] Confirmed Active Results Laboratory List Name Date CBC w/ Diff 04/09/22 Comprehensive Metabolic Panel (CMP) 04/09 Magnesium Level 04/09/22 NT- Pro BNP 04/09/22 Troponin-I 04/09/22 Automated Diff 04/09/22 Most recent to oldest [Reference Range]: 1 WBC [5.0-10.0 x10^3/mcL] 7.3 x10^3/mcL (04/09/22 8:32 PM) RBC [4.6-6.0 x10^6/mcL] 5.1 x10^6/mcL (04/09/22 8:32 PM) Neutro Auto [40.0-75.0 %] 46.0 % (04/09/22 8:32 PM) Lymph Auto [20.0-50.0 %] 38.1 % (04/09/22 8:32 PM) Lincoln Auto [2.0-15.0 %] 11.5 % (04/09/22 8:32 PM) Basophil Auto [0.0-1.0 %] 0.7 % (04/09/22 8:32 PM) BUN [7-18 mg/dL] 17 mg/dL (04/09/22 8:32 PM) Glucose Level [74-106 mg/dL] 131 mg/dL *HI* (04/09/22 8:32 PM) Potassium Level [3.5-5.1 mmol/L] 3.4 mmo l/L *LOW* (04/09/22 8:32 PM) MCV [80.0-96.0] 91.4 (04/09/22 8:32 PM) AST [15-37 unit/L] 22 unit/L (04/09/22 8:32 PM) ALT [16-63 unit/L] 39 unit/L (04/09/22 8:32 PM) MCHC [31.0-35.0 g/dL] 33.8 g/dL (04/09/22 8:32 PM) Troponin-I [0.0-76.2 pg/mL] 8.2 pg/mL (04/09/22 8:32 PM) Sodium Level [136-145 mmol/L] 137 mmol/L (04/09/22 8:32 PM) Hct [41.0-51.0 %] 46.8 % (04/09/22 8:32 PM) Calcium Level [8.5-10.1 mg/dL] 8.6 mg/dL (04/09/22 8:32 PM) Albumin Level [3.4-5.0 g/dL] 3.6 g/dL (04/09/22 8:32 PM) Protein Total [6.4-8.2 g/dL] 7.9 g/dL (04/09/22 8:32 PM) MCH [26.0-32.0 pg] 30.9 pg (04/09/22 8:32 PM) Magnesium Level [1.8-2.4 mg/dL] 1.9 mg/d L (04/09/22 8:32 PM) Neutro Absolute 3.4 x10^3/mcL *NA* (04/09/22 8:32 PM) Bilirubin Total [0.2-1.0 mg/dL] 0.5 mg/d L (04/09/22 8:32 PM) Hgb [14.0-18.0 g/dL] 15.8 g/dL (04/09/22 8:32 PM) Alk Phos [46-146 unit/L] 77 unit/L (04/09/22 8:32 PM) Platelets [130-450 x10^3/mcL] 276 x10^3/ mcL (04/09/22 8:32 PM) CO2 [21-32 mmol/L] 30 mmol/L (04/09/22 8:32 PM) eGFR Non-AA [>=60] 110 (04/09/22 8:32 PM) eGFR AA [>=60] 110 (04/09/22 8:32 PM) NT-proBNP [0-125 pg/mL] 28 pg/mL (04/09/22 8:32 PM) Chloride Level [98-107 mmol/L] 101 mmol/ L (04/09/22 8:32 PM) RDW-CV [11.5-17.0 %] 12.4 % (04/09/22 8:32 PM) Imm Gran Auto [0.0-0.9 %] 0.1 % (04/09/22 8:32 PM) Creatinine Level [0.70-1.30 mg/dL] 0.90 mg/dL (04/09/22 8:32 PM) Eos, Auto [1.0-6.0 %] 3.6 % (04/09/22 8:32 PM) Vital Signs Most recent to oldest [Reference Range]: 1 2 3 Temperature Temporal Artery [36-38 Deg C] 36.7 Deg C (04/09/22 8:38 PM) Heart Rate Monitored [60-100 bpm] 88 bpm (04/09/22 9:27 PM) 86 bpm (04/09/22 8:45 PM) 96 bpm (04/09/22 8:38 PM) Respiratory Rate [12-24 br/min] 19 br/min (04/09/22 9:27 PM) 13 br/min (04/09/22 8:45 PM) 18 br/min (04/09/22 8:38 PM) Blood Pressure [90-140/60-90 mmHg] 116/82mmHg (04/09/22 9:27 PM) 130/84mmHg (04/09/22 8:45 PM) 153/96mmHg *HI* (04/09/22 8:38 PM) Weight Dosing 108.00 kg (04/09/22 8:32 PM) Weight Estimated 108.00 kg (04/09/22 8:24 PM) Height/Length Dosing 176.000 cm (04/09/22 8:32 PM) Height/Length Estimated 176.000 cm (04/09/22 8:24 PM) Social History Social History Type Response Tobacco Former tobacco user Tobacco Use:. Sex Male Hospital Discharge Instructions Patient Education 04/09/2022 20:33:31 Muscle Strain Muscle Strain A muscle strain is an injury that occurs when a muscle is stretched beyond its normal length. Usually, a small number of muscle fibers are torn when this happens. There are three types of muscle strains. First-degree strains have the least amount of muscle fiber tearing and the least amount of pain. Second-degree and third-degree strains have more tearing and pain. Usually, recovery from muscle strain takes 1???2 weeks. Complete healing normally takes 5???6 weeks. What are the causes? This condition is caused when a sudden, violent force is placed on a muscle and stretches it too far. This may occur with a fall, while lifting, or during sports. What increases the risk? This condition is more likely to develop in athletes and people who are physically active. What are the signs or symptoms? Symptoms of this condition include: ??? Pain. ??? Tenderness. ??? Bruising. ??? Swelling. ??? Trouble using the muscle. How is this diagnosed? This condition is diagnosed based on a physical exam and your medical history. Tests may also be done, including an X-ray, ultrasound, or MRI. How is this treated? This condition is initially treated with AYALA therapy. This therapy involves: ??? Protecting the muscle from being injured again. ??? Resting the injured muscle. ??? Icing the injured muscle. ??? Applying pressure (compression) to the injured muscle. This may be done with a splint or elastic bandage. ??? Raising (elevating) the injured muscle. Your health care provider may also recommend medicine for pain. Follow these instructions at home: If you have a removable splint: ??? Wear the splint as told by your health care provider. Remove it only as told by your health care provider. ??? Check the skin around the splint every day. Tell your health care provider about any concerns. ??? Loosen the splint if your fingers or toes tingle, become numb, or turn cold and blue. ??? Keep the splint clean. ??? If the splint is not waterproof: ??? Do not let it get wet. ??? Cover it with a watertight covering when you take a bath or a shower. Managing pain, stiffness, and swelling ??? If directed, put ice on the injured area. To do this: ??? If you have a removable splint, remove it as told by your health care provider. ??? Put ice in a plastic bag. ??? Place a towel between your skin and the bag. ??? Leave the ice on for 20 minutes, 2???3 times a day. ??? Remove the ice if your skin turns bright red. This is very important. If you cannot feel pain, heat, or cold, you have a greater risk of damage to the area. ??? Move your fingers or toes often to reduce stiffness and swelling. ??? Raise (elevate) the injured area above the level of your heart while you are sitting or lying down. ??? Wear an elastic bandage as told by your health care provider. Make sure that it is not too tight. General instructions ??? Take [id number] and prescription medicines only as told by your health care provider. Treatment may include muscle relaxants or medicines for pain and inflammation that are taken by mouth or applied to the skin. ??? Restrict your activity and rest the injured muscle as told by your health care provider. Gentlemovements may be allowed. ??? If physical therapy was prescribed, do exercises as told by your health care provider. ??? Do not put pressure on any part of the splint until it is fully hardened. This may take severalhours. ??? Do not use any products that contain nicotine or tobacco. These products include cigarettes, chewing tobacco, and vaping devices, such as e-cigarettes. If you need help quitting, ask your health care provider. ??? Ask your health care provider when it is safe to drive if you have a splint. ??? Keep all follow-up visits. This is important. How is this prevented? Warm up before exercising. This helps to prevent future muscle strains. Contact a health care provider if: ??? You have more pain or swelling in the injured area. Get help right away if: ??? You have numbness or tingling in the injured area. ??? You lose a lot of strength in the injured area. Summary ??? A muscle strain is an injury that occurs when a muscle is stretched beyond its normal length. ??? This condition is caused when a sudden, violent force is placed on a muscle and stretches it too far. ??? This condition is initially treated with AYALA therapy, which involves protecting, resting, icing, compressing, and elevating. ??? Gentle movements may be allowed. If physical therapy was prescribed, do exercises as told by your health care provider. This information is not intended to replace advice given to you by your health care provider. Make sure you discuss any questions you have with your health care provider. Document Revised: 04/17/2021 Document Reviewed: 04/17/2021 [employer] Patient Education ?? 2021 [employer]. 04/09/2022 20:32:35 Chest Wall Pain Chest Wall Pain Chest wall pain is pain in or around the bones and muscles of your chest. Sometimes, an injury causes this pain. Excessive coughing or overuse of arm and chest muscles may also cause chest wall pain.Sometimes, the cause may not be known. This pain may take several weeks or longer to get better. Follow these instructions at home: Managing pain, stiffness, and swelling ??? If directed, put ice on the painful area: ??? Put ice in a plastic bag. ??? Place a towel between your skin and the bag. ??? Leave the ice on for 20 minutes, 2???3 times per day. Activity ??? Rest as told by your health care provider. ??? Avoid activities that cause pain. These include any activities that use your chest muscles or your abdominal and side muscles to lift heavy items. Ask your health care provider what activities are safe for you. General instructions ??? Take ymao-lun-lckilla and prescription medicines only as told by your health care provider. ??? Do not use any products that contain nicotine or tobacco, such as cigarettes, e-cigarettes, andchewing tobacco. These can delay healing after injury. If you need help quitting, ask your health care provider. ??? Keep all follow-up visits as told by your health care provider. This is important. Contact a health care provider if: ??? You have a fever. ??? Your chest pain becomes worse. ??? You have new symptoms. Get help right away if: ??? You have nausea or vomiting. ??? You feel sweaty or light-headed. ??? You have a cough with mucus from your lungs (sputum) or you cough up blood. ??? You develop shortness of breath. These symptoms may represent a serious problem that is an emergency. Do not wait to see if the symptoms will go away. Get medical help right away. Call your local emergency services (911 in the [place] Do not drive yourself to the hospital. Summary ??? Chest wall pain is pain in or around the bones and muscles of your chest. ??? Depending on the cause, it may be treated with ice, rest, medicines, and avoiding activities that cause pain. ??? Contact a health care provider if you have a fever, worsening chest pain, or new symptoms. ??? Get help right away if you feel light-headed or you develop shortness of breath. These symptomsmay be an emergency. This information is not intended to replace advice given to you by your health care provider. Make sure you discuss any questions you have with your health care provider. Document Revised: 04/14/2021 Document Reviewed: 04/14/2021 [employer] Patient Education ?? 2021 [employer] Follow Up Care 04/09/2022 20:24:16 With:Odilon Davis MD Address: [address] [phone] When:1 month Emergency department Discharge instructions * Darrion Heller MD: PERFORM Event Display: ED Discharge Information Authored Date: [id number] VALENCIA CONSTANZA R :1980 Age:41 years Sex:Male Visit Date:04/09/2022 Primary Care Physician: Odilon Davis MD Discharge Instructions We would like to thank you for allowing us to assist you with your healthcare needs. The following includes patient education materials and information regarding your injury/illness. Diagnosis from Today's Visit Chest pain Discharge Vitals Temperature??(Temporal Artery) 98.1 ??F (36.7 ??C) Heart Rate??(Monitored) 88 Respiratory Rate?? 19 Blood Pressure?? 116/82?? Height?? 69.29 in (176.000 cm) Weight??(Estimated) 238.14 lb (108.00 kg) Allergies atomoxetine predniSONE??(Head pain) sulfa drugs What to Do Next You Need to Schedule the Following Appointments Follow Up with??Odilon Davis MD When:??Within 1 month Where: [address] [phone] [phone] Upcoming Scheduled Appointments 2022 10:30 AM EST ?? Where: [facility] Status: Confirmed You were treated today on an emergency [...] Emergency Department. Medications What How Much When Instructions Next Dose Unchanged aspirin (aspirin 81 mg oral tablet, chewable) 1 tab Oral (given by mouth) Every day Unchanged metoprolol (metoprolol succinate 100 mg oral tablet, extended release) 1 tab Oral (given by mouth) Every day Total daily dose is 125 mg ?? Education Materials Muscle Strain A muscle strain is an injury that occurs when a muscle is stretched beyond its normal length. Usually, a small number of muscle fibers are torn when this happens. There are three types of muscle strains. First-degree strains have the least amount of muscle fiber tearing and the least amount of pain. Second-degree and third-degree strains have more tearing and pain. Usually, recovery from muscle strain takes 1???2 weeks. Complete healing normally takes 5???6 weeks. What are the causes? This condition is caused when a sudden, violent force is placed on a muscle and stretches it too far. This may occur with a fall, while lifting, or during sports. What increases the risk? This condition is more likely to develop in athletes and people who are physically active. What are the signs or symptoms? Symptoms of this condition include: ? Pain. ? Tenderness. ? Bruising. ? Swelling. ? Trouble using the muscle. How is this diagnosed? This condition is diagnosed based on a physical exam and your medical history. Tests may also be done, including an X-ray, ultrasound, or MRI. How is this treated? This condition is initially treated with AYALA therapy. This therapy involves: ? Protecting the muscle from being injured again. ? Resting the injured muscle. ? Icing the injured muscle. ? Applying pressure (compression) to the injured muscle. This may be done with a splint or elastic bandage. ? Raising (elevating) the injured muscle. Your health care provider may also recommend medicine for pain. Follow these instructions at home: If you have a removable splint: ? Wear the splint as told by your health care provider. Remove it only as told by your health care provider. ? Check the skin around the splint every day. Tell your health care provider about any concerns. ? Loosen the splint if your fingers or toes tingle, become numb, or turn cold and blue. ? Keep the splint clean. ? If the splint is not waterproof: ? Do not let it get wet. ? Cover it with a watertight covering when you take a bath or a shower. Managing pain, stiffness, and swelling ? If directed, put ice on the injured area. To do this: ? If you have a removable splint, remove it as told by your health care provider. ? Put ice in a plastic bag. ? Place a towel between your skin and the bag. ? Leave the ice on for 20 minutes, 2???3 times a day. ? Remove the ice if your skin turns bright red. This is very important. If you cannot feel pain, heat, or cold, you have a greater risk of damage to the area. ? Move your fingers or toes often to reduce stiffness and swelling. ? Raise (elevate) the injured area above the level of your heart while you are sitting or lying down. ? Wear an elastic bandage as told by your health care provider. Make sure that it is not too tight. General instructions ? Take hivt-bto-cbnlahn and prescription medicines only as told by your health care provider. Treatment may include muscle relaxants or medicines for pain and inflammation that are taken by mouth or applied to the skin. ? Restrict your activity and rest the injured muscle as told by your health care provider. Gentle movements may be allowed. ? If physical therapy was prescribed, do exercises as told by your health care provider. ? Do not put pressure on any part of the splint until it is fully hardened. This may take several hours. ? Do not use any products that contain nicotine or tobacco. These products include cigarettes, chewing tobacco, and vaping devices, such as e-cigarettes. If you need help quitting, ask your health careprovider. ? Ask your health care provider when it is safe to drive if you have a splint. ? Keep all follow-up visits. This is important. How is this prevented? Warm up before exercising. This helps to prevent future muscle strains. Contact a health care provider if: ? You have more pain or swelling in the injured area. Get help right away if: ? You have numbness or tingling in the injured area. ? You lose a lot of strength in the injured area. Summary ? A muscle strain is an injury that occurs when a muscle is stretched beyond its normal length. ? This condition is caused when a sudden, violent force is placed on a muscle and stretches it too far. ? This condition is initially treated with AYALA therapy, which involves protecting, resting, icing, compressing, and elevating. ? Gentle movements may be allowed. If physical therapy was prescribed, do exercises as told by your health care provider. This information is not intended to replace advice given to you by your health care provider. Make sure you discuss any questions you have with your health care provider. Document Revised: 04/17/2021 Document Reviewed: 04/17/2021 [employer] Patient Education ?? 2021 [employer] Chest Wall Pain Chest wall pain is pain in or around the bones and muscles of your chest. Sometimes, an injury causes this pain. Excessive coughing or overuse of arm and chest muscles may also cause chest wall pain.Sometimes, the cause may not be known. This pain may take several weeks or longer to get better. Follow these instructions at home: Managing pain, stiffness, and swelling ? If directed, put ice on the painful area: ? Put ice in a plastic bag. ? Place a towel between your skin and the bag. ? Leave the ice on for 20 minutes, 2???3 times per day. Activity ? Rest as told by your health care provider. ? Avoid activities that cause pain. These include any activities that use your chest muscles or your abdominal and side muscles to lift heavy items. Ask your health care provider what activities are safe for you. General instructions ? Take qnqo-yba-eovmffr and prescription medicines only as told by your health care provider. ? Do not use any products that contain nicotine or tobacco, such as cigarettes, e- cigarettes, and chewing tobacco. These can delay healing after injury. If you need help quitting, ask your health care provider. ? Keep all follow-up visits as told by your health care provider. This is important. Contact a health care provider if: ? You have a fever. ? Your chest pain becomes worse. ? You have new symptoms. Get help right away if: ? You have nausea or vomiting. ? You feel sweaty or light-headed. ? You have a cough with mucus from your lungs (sputum) or you cough up blood. ? You develop shortness of breath. These symptoms may represent a serious problem that is an emergency. Do not wait to see if the symptoms will go away. Get medical help right away. Call your local emergency services (911 in the [place] Do not drive yourself to the hospital. Summary ? Chest wall pain is pain in or around the bones and muscles of your chest. ? Depending on the cause, it may be treated with ice, rest, medicines, and avoiding activities that cause pain. ? Contact a health care provider if you have a fever, worsening chest pain, or new symptoms. ? Get help right away if you feel light-headed or you develop shortness of breath. These symptoms maybe an emergency. This information is not intended to replace advice given to you by your health care provider. Make sure you discuss any questions you have with your health care provider. Document Revised: 04/14/2021 Document Reviewed: 04/14/2021 [employer] Patient Education ?? 2021 [employer]. Tests Performed Lab Test Name Test Result Date/Time WBC 7.3 x10^3/mcL 04/09/2022 20:32 EST RBC 5.1 x10^6/mcL 04/09/2022 20:32 EST Hgb 15.8 g/dL 04/09/2022 20:32 EST Hct 46.8 % 04/09/2022 20:32 EST MCV 91.4 04/09/2022 20:32 EST MCH 30.9 pg 04/09/2022 20:32 EST MCHC 33.8 g/dL 04/09/2022 20:32 EST RDW-CV 12.4 % 04/09/2022 20:32 EST Platelets 276 x10^3/mcL 04/09/2022 20:32 EST Neutro Auto 46.0 % 04/09/2022 20:32 EST Lymph Auto 38.1 % 04/09/2022 20:32 EST Lincoln Auto 11.5 % 04/09/2022 20:32 EST Eos, Auto 3.6 % 04/09/2022 20:32 EST Basophil Auto 0.7 % 04/09/2022 20:32 EST Imm Gran Auto 0.1 % 04/09/2022 20:32 EST Neutro Absolute 3.4 x10^3/mcL 04/09/2022 20:32 EST Sodium Level 137 mmol/L 04/09/2022 20:32 EST Potassium Level 3.4 mmol/L 04/09/2022 20:32 EST Chloride Level 101 mmol/L 04/09/2022 20:32 EST CO2 30 mmol/L 04/09/2022 20:32 EST Alk Phos 77 unit/L 04/09/2022 20:32 EST AST 22 unit/L 04/09/2022 20:32 EST ALT 39 unit/L 04/09/2022 20:32 EST BUN 17 mg/dL 04/09/2022 20:32 EST Glucose Level 131 mg/dL 04/09/2022 20:32 EST Creatinine Level 0.90 mg/dL 04/09/2022 20:32 EST eGFR AA 110 04/09/2022 20:32 EST eGFR Non-AA 110 04/09/2022 20:32 EST Calcium Level 8.6 mg/dL 04/09/2022 20:32 EST Protein Total 7.9 g/dL 04/09/2022 20:32 EST Albumin Level 3.6 g/dL 04/09/2022 20:32 EST Bilirubin Total 0.5 mg/dL 04/09/2022 20:32 EST Magnesium Level 1.9 mg/dL 04/09/2022 20:32 EST Troponin-I 8.2 pg/mL 04/09/2022 20:32 EST NT-proBNP 28 pg/mL 04/09/2022 20:32 EST Patient/Crisis Worker Signature Patient Name:VALENCIA, CONSTANZA R I have received this information and my questions have been answered. Patient/Crisis Worker Name: Patient/Crisis Worker Signature: Relationship to Patient: Witness Name/Signature: Date: Electronically Signed on: 04/09/2022 21:33 ESTSigned by:[facility] Emergency department Note * Deborah Pringle H: PERFORM Event Display: ED Notes Authored Date: [id number] Patient Care team information Care Team Personnel Name: Marine Escobar NP Position: Physician Member Role: Nurse Practitioner Name: Odilon Davis MD Position: No Access Member Role: Primary Care Physician Address: Address: [address] [address] Name: Ivelisse Hodges Position: Nurse Member Role: ED Nurse Name: Darrion Heller MD Position: Physician Member Role: Admitting Physician Address: Address: [facility] [address] [place] [address]- Care Team Related Persons Name: ARDEN PETTIT
--- OUTSIDE RECORDS SUMMARY | 2024-02-11 20:37 | XMS_ITS | Continuity of Care Document ---
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(Discharge Diagnosis) - 12/12/21 Sprain of metacarpophalangeal joint of left middle finger, initial encounter (Final) - Overexertion from strenuous movement or load, initial encounter(Final) - Activity, other specified(Final) - Other specified places as the place of occurrence of the external cause(Final) - Other external cause status(Final) - Discharge Disposition: Home or Self Care Attending Physician: Darrion Heller MD Admitting Physician: Darrion Heller MD Allergies, Adverse Reactions, Alerts Substance Reaction Severity Status atomoxetine Unknown Active sulfa drugs Unknown Active predniSONE Head pain Unknown Active Assessment and Plan Extracted from: Title:Clinical Document Author:Katie Galvan Date :12/12/21 Diagnosis: 1. 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 Comment: Diagnosis: Finger injury - Minor Comment: Future Appointments Functional Status 12/12/21 Other exposure to Infectious Disease Non e [...] disease) Confirmed Active HTN (hypertension) Confirmed Active Knee pain Confirmed Active Palpitations Confirmed Active Paroxysmal nocturnal dyspnea Confirmed Active Postural orthostatic tachycardia syndrome Confirmed Active Prediabetes Confirmed Active Sinus tachycardia Confirmed Active Tachycardia Confirmed Active Tubular adenoma of colon Confirmed Active Vital Signs Most recent to oldest [Reference Range]: 1 Temperature Temporal Artery [36-38 Deg C ] 36.7 Deg C (12/12/21 2:38 PM) Peripheral Pulse Rate [60-100 bpm] 103 b pm *HI* (12/12/21 2:38 PM) Respiratory Rate [12-24 br/min] 14 br/mi n (12/12/21 2:38 PM) Blood Pressure [90-140/60-90 mmHg] 130/7 5mmHg (12/12/21 2:38 PM) Weight Dosing 108.86 kg (12/12/21 2:51 PM) Weight Estimated 108.86 kg (12/12/21 2:38 PM) Height/Length Dosing 176.000 cm (12/12/21 2:51 PM) Height/Length Estimated 176.000 cm (12/12/21 2:38 PM) Social History Social History Type Response Tobacco Former tobacco user Tobacco Use:. Sex Male Patient Care team information Personnel Name: Odilon Cedeno MD Address: Address: [address] [address]- [place]
--- OUTSIDE RECORDS SUMMARY | 2024-02-11 20:37 | XMS_ITS ---
Author Organization Unknown Address [address] [place] [phone] Phone Care Team Providers Care Recreation Therapy Aides Teacher Name Role Phone REYES Muniz Attending Unavailable Social History Type Status Start Date End Date Code Code Syst em Sex Male Hospital Discharge Instructions Should you have any questions prior to discharge, please contact a member of your healthcare team. If you have left the hospital and have any questions, please contact your primary care physician. Reason For Referral No Data Found Plan of Treatment No Data Found Encounters Encounter Diagnosis Start Date Code Code Sys tem Chest pain 01/11/2022 [id number] SNOMED-CT Personal Care Team Section Performer Name Performer Role Active Date Inactive Da te
--- OUTSIDE RECORDS SUMMARY | 2024-02-11 20:37 | XMS_ITS | Continuity of Care Document ---
Author Organization [facility] Address [address] [place] [address] Care Team Providers Care Stitching Machine Setter Name Role Phone [facility], Odilon Arriaga Primary Care Physician Encounter [facility] [id number] Date(s): 04/10/23 - 04/10/23 [facility] [address] [place] [address] Discharge Disposition: Home or Self Care Attending Physician: Rachel Leblanc PA-C Admitting Physician: Rachel Leblanc PA-C Allergies, Adverse Reactions, Alerts Substance Reaction [...] Active Tubular adenoma of colon Confirmed Active 27437 R/T Covid. ( in [facility] ) [...] Meniscus tear. Results Laboratory List Name Date HIV 1/2 Ag and Ab, 4th Generation [facility] Hepatitis B Surface Antigen [facility] 04/10/23 Hepatitis C Ab w/Rflx to HCV RNA PCR [facility] 04/10/23 Syphilis Serology [facility] 04/10/23 Most recent to oldest [Reference Range]: 1 Syphilis Serology [facility] [Negative] Negativ e 1 *NA* (04/10/23 3:34 PM) Hep B Surface Ag [facility] [Negative] Negative 2 *NA* (04/10/23 3:34 PM) Hep C Antibody [facility] [Negative] Negative 3 *NA* (04/10/23 3:34 PM) HIV 1 and 2 Ab/p24 Ag, 4th Gen [facility] [Nega tive] Negative 4 *NA* (04/10/23 3:34 PM) 1Result Comment: Test [place] [address] 2Result Comment: Test [place] [address] 3Result Comment: Test performed [place] [address] 4Result Comment: If acute HIV-1 infection is suspected in a high risk patient, submit plasma specimen for HIV-1 RNA quantitation test. Fourth Generation assay performed on the [employer] XPT. Test performed [place] [address] Social History Social History Type Response Tobacco Former tobacco user Tobacco Use:. Sex Male Patient Care team information Care Team Personnel Name: Odilon Davis MD Position: No Access Member Role: Informed Provider Address: Address: [place] [address]- Care Team Related Persons Name: ARDEN PETTIT
--- OUTSIDE RECORDS SUMMARY | 2024-02-11 20:38 | XMS_ITS | Encounter Summary ---
Author Organization [facility] Address [address] [place] [address] Care Team Providers Care Meter Tester Name Role Phone Odilon Alejo MD Primary Care Provider [phone] Reason for Visit * (Routine/Next Available) - Receiving Office to Obtain Authorization Specialty Diagnoses / Procedures Referred By Contac t Referred To Contact Procedures CT OUTSIDE IMAGES CHEST Unknown, Provider, MD Referral ID Status Reason Start Date Expiration Date Visits Requested Visits Authorized [id number] Receiving Office to Obtain Authorization 12/19/2020 1 1 Encounter Details Date Type Department Care Team (Latest Contact Info) Description 12/19/2020 15:04 EST - 12/19/2020 23:59 EST Hospital Encounter [facility] Secondary Reads [place] Discharge Disposition: Home or Self Care Social History Tobacco Use Types Packs/Day Years Used Date Smoking Tobacco: Former Cigarettes Smokeless Tobacco: Never Alcohol Use Standard Drinks/Week Comments Yes 0 (1 standard drink = 0.6 oz pur e alcohol) Interpersonal Safety Answer Date Record ed Physically Hurt Never 09/13/2019 Verbally Threaten Not on file 09/13/2019 Sex and Gender Information Value Date Recorded Sex Assigned at Not on file Legal Sex Male 18:03 EST Gender Identity Male 04/06/2019 12:26 EST Sexual Orientation Not on file documented as of this encounter Functional Status * Because of a physical, mental, or emotional condition, does this person have difficulty doing errands alone such as visiting a doctor's office or shopping? Answer Date of Assessment Author No 04/07/2019 16:01 EST documented as of this encounter Mental Status * Because of a physical, mental, or emotional condition, does this person have serious difficulty concentrating, remembering, or making decisions? Answer Entry Date Author No 04/07/2019 16:01 EST documented in this encounter Medications at Time of Discharge GLUCOSAMINE/CHOND ROITIN SULF A (GLUCOSAMINE-TRACEY DROITIN ORAL) Take by mouth daily. Multivitamins with Minerals tablet Take 1 Tablet by mouth daily. metoprolol (LOPRESSOR) 50 mg tablet Take 1 Tablet by mouth daily. 01/10/2023 documented as of this encounter Discharge Disposition Disposition Code Departure Means Destination Home or Self Care documented in this encounter Plan of Treatment Not on file documented as of this encounter Procedures Procedure Name Priority Date/Time Associated Diagnosis Comments CT OUTSIDE IMAGES CHEST Routine 12/19/2020 15:04 EST documented in this encounter Results * CT OUTSIDE IMAGES CHEST (12/19/2020 15:04 EST) Narrative 12/19/2020 15:04 EST This is a non-reportable exam. us Provider Unknown MD NARVAEZ OTHER IMAGING ORDERABLES Final Result documented in this encounter Visit Diagnoses Not on filedocumented in this encounter Care Teams Meter Tester Relationship Specialty Start Date End Date Odilon Alejo MD [address] [place] [address] PCP - General 12/31/13 documented as of this encounter
--- OUTSIDE RECORDS SUMMARY | 2024-02-11 20:38 | XMS_ITS | Encounter Summary ---
Author Organization [facility] Address [address] [place] [address] Care Team Providers Care District Manager Primary Care Sales Name Role Phone Odilon Alejo MD Primary Care Provider [phone] Reason for Visit * Reason Comments New Patient Visit Encounter Details Date Type Department Care Team (Late st Contact Info) Description 06/04/2019 14:30 EDT Telemedicine [facility] Infectious Disease - [address] [id number] Annalise Hancock NP [address] [facility], [address] [place] [address] STI (sexually transmitted infection) (Primary Dx) Social History Tobacco Use Types Packs/Day Years Used Date Smoking Tobacco: Former Cigarettes Smokeless Tobacco: Never Alcohol Use Standard Drinks/Week Comments Yes 0 (1 standard drink = 0.6 oz pur e alcohol) Sex and Gender Information Value Date Recorded Sex Assigned at Not on file Legal Sex Male 18:03 EST Gender Identity Male 04/06/2019 12:26 EST Sexual Orientation Not on file COVID-19 Exposure Response Date Recorded In the last month, have you been in contact with someone who was confirmed or suspected to have Coronavirus / COVID-19? No / Unsure 06/05/2019 7:44 EDT documented as of this encounter Functional Status [...] 04/07/2019 16:01 EST documented in this encounter Progress Notes * Annalise Hancock APRN - 06/04/2019 1430 EDT INFECTIOUS DISEASES Initial Consult HPI: Patient is a 38 y.o male who is being seen via telephone for STI check up. He has had a Stomachache for the past three weeks. He has had pain in his armpits and neck occasional tenderness. Rash on his torso that has been there the last couple weeks. Denies any rash on his hands and feet.Last unprotected sexual intercourse was the week of April 11 with about four different women. Denies any burning, discharge. ROS: a 10 point ROS is otherwise negative No past medical history on file. Past Surgical History: Procedure Laterality Date ??? KNEE CARTILAGE SURGERY Right arthroscopic partial medial meniscectomy on 05-21-14 MEDICATIONS: no current medications PHYSICAL EXAMINATION: There were no vitals taken for this visit. No exam completed done over the phone. LABORATORIES: 06/05/2019 08:01 CHLAMYDIA/N. GONORRHOEAE AMPLIFIED RNA: Rpt Syphilis Serology: Negative Hep Bs AB,Quant: <3.1 Hep C Ab w Rfx PCR: Negative Hepatitis B Core Antibody: Negative Hepatitis B Surface Antibody: Negative Hepatitis B Surface Antigen: Negative HIV 1 and 2 Antibody/p24 Antigen, 4th Generation: Negative IMPRESSION/PLAN: STI- Will have patient complete STI labs which include Syphilis, Chlamdyia/Ghon urine, HIV, Hep C. Will notify patient of results. Annalise Hancock APRN Division of Infectious Disease Follow up/Progress Note Telephone visit 06/05/19 14:48 The concept of ???Telemedicine?? has been described to the patient.? Patient has been informed of the anticipated benefits and possible risks.? Patient understands the information provided regardingtelemedicine, has had the opportunity to ask questions about this information, and all questions have been answered to patient???s satisfaction. Patient consents for the use of telemedicine in his/her medical care and authorizes the transmission of any relevant medical information to providers and their staff involved in patient???s medical or mental health care. I spent a total of 15 minutes with Kosta Yuen Nohemi today and 15minutes of that time was spent in counseling and coordination of care as described in the progress note. documented in this encounter Plan of Treatment Not on file documented as of this encounter Results * HEPATITIS B CORE ANTIBODY (TOTAL) (06/05/2019 8:01 EDT) Hepatitis B Core Ab, Total Negative Negative 06/05/2019 10:45 EDT [facility] Blood VENOUS BLOOD / Unknown Venipuncture / Unknown 06/05/2019 8:01 EDT 06/05/2019 8:01 EDT us Annalise Hancock INFORMATION RESOURCE CONSULTANT CHEMISTRY & BLOOD GAS ORDERABLE S Final Result Performing Organization Address [facility]/ZIP Co de Phone Number [facility] [address] [place] [address] * HEPATITIS B SURFACE ANTIBODY (06/05/2019 8:01 EDT) Hep B Surface Ab, Quantitative <3.1 See Note mIU/mL 06/05/2019 10:05 EDT [facility] Comment: Reference Range for Hep B Surface Ab, Quant: Positive: >= 10.0 mIU/mL Negative: ??< 10.0 mIU/mL Patient is presumed to not be immune to infection with Hepatitis B Virus. Hep B Surface Ab, Qualitative Negative See Note 06/05/2019 10:05 EDT [facility] Comment: Reference Range for Hep B Surface Ab, Qual: Unvaccinated: ??Negative Vaccinated: ??Positive Blood VENOUS BLOOD / Unknown Venipuncture / Unknown 06/05/2019 8:01 EDT 06/05/2019 8:01 EDT us Annalise Hancock INFORMATION RESOURCE CONSULTANT CHEMISTRY & BLOOD GAS ORDERABLE S Final Result Performing Organization Address [facility]/ZIP Co de Phone Number [facility] [address] [place] [address] * HEPATITIS B SURFACE ANTIGEN (06/05/2019 8:01 EDT) Hep B Surface Ag Negative Negative 06/05/2019 10:35 EDT [facility] Blood VENOUS BLOOD / Unknown Venipuncture / Unknown 06/05/2019 8:01 EDT 06/05/2019 8:01 EDT us Annalise Hancock INFORMATION RESOURCE CONSULTANT CHEMISTRY & BLOOD GAS ORDERABLE S Final Result [facility] [address] [place] [address] * HEPATITIS C AB W REFLEX TO HCV RNA BY PCR (06/05/2019 8:01 EDT) Hep C Antibody Negative Negative 06/05/2019 10:45 EDT [facility] Blood VENOUS BLOOD / Unknown Venipuncture / Unknown 06/05/2019 8:01 EDT 06/05/2019 8:01 EDT us Annalise Hancock INFORMATION RESOURCE CONSULTANT CHEMISTRY & BLOOD GAS ORDERABLE S Final Result [facility] [address] [place] [address] * CHLAMYDIA/N. GONORRHOEAE AMPLIFIED RNA (06/05/2019 8:01 EDT) Neisseria gonorrhoeae Result Negative Negative 06/05/2019 14:23 EDT [facility] Chlamydia trachomatis Result Negative Negative 06/05/2019 14:23 EDT [facility] Urine URINE / Unknown Urine Collect / Unknown 06/05/2019 8:01 EDT 06/05/2019 8:01 EDT us Annalise Hancock INFORMATION RESOURCE CONSULTANT MICROBIOLOGY - GENERAL ORDERABL ES Final Result [facility] [address] [place] [address] * SYPHILIS SEROLOGY (06/05/2019 8:01 EDT) Syphilis Serology Negative Negative 06/05/2019 10:59 EDT [facility] Blood VENOUS BLOOD / Unknown Venipuncture / Unknown 06/05/2019 8:01 EDT 06/05/2019 8:01 EDT us Annalise Hancock INFORMATION RESOURCE CONSULTANT IMMUNOLOGY AND SEROLOGY ORDERAB LES Final Result Performing Organization Address City/[facility]/ZIP Co de Phone Number [facility] [address] [place] [address] * HIV 1/2 ANTIGEN AND ANTIBODY, 4TH GENERATION (06/05/2019 8:01 EDT) HIV 1 and 2 Antibody/p24 Antigen, 4th Generation Negative Negative 06/05/2019 10:45 EDT [facility] Comment: If acute HIV-1 infection is suspected in a high risk ??patient, submit plasma specimen for HIV-1 RNA quantitation test. Fourth Generation assay performed on the Siemens [employer]aur. Blood VENOUS BLOOD / Unknown Venipuncture / Unknown 06/05/2019 8:01 EDT 06/05/2019 8:01 EDT us Annalise Hancock NP IMMUNOLOGY AND SEROLOGY ORDERAB LES Final Result Performing Organization Address City/[facility] Co de Phone Number [facility] [address] [place] [phone] documented in this encounter Visit Diagnoses Diagnosis STI (sexually transmitted infection)- Primary Venereal disease, unspecified documented in this encounter Care Teams District Manager Primary Care Sales Relationship Specialty Start Date End Date Odilon Alejo MD [address] [place] [address] PCP - General 12/31/13 documented as of this encounter
--- OUTSIDE RECORDS SUMMARY | 2024-02-11 20:38 | XMS_ITS | Encounter Summary ---
Author Organization [facility] Address [address] [place] [address] Care Team Providers Care Custodian Manager Name Role Phone Odilon Alejo MD Primary Care Provider [phone] Reason for Visit * (Routine/Next Available) - Receiving Office to Obtain Authorization Specialty Diagnoses / Procedures Referred By Contac t Referred To Contact Procedures XR OUTSIDE IMAGES CHEST Unknown, Provider, MD Referral ID Status Reason Start Date Expiration Date Visits Requested Visits Authorized [id number] Receiving Office to Obtain Authorization 12/19/2020 1 1 Encounter Details Date Type Department Care Team (Latest Contact Info) Description 12/17/2020 - 12/17/2020 23:59 EDT Hospital Encounter [facility] Secondary Reads [place] Discharge Disposition: Home or [...] Procedure Name Priority Date/Time Associated Diagnosis Comments XR OUTSIDE IMAGES CHEST Routine 12/19/2020 15:03 EST documented in this encounter Results * XR OUTSIDE IMAGES CHEST (12/19/2020 15:03 EST) Narrative 12/19/2020 15:03 EST This is a non-reportable exam. us Provider Unknown IMCristy OTHER IMAGING ORDERABLES Final Result documented in this encounter Visit Diagnoses Not on filedocumented in this encounter Care Teams Custodian Manager Relationship Specialty Start Date End Date Odilon Alejo MD [address] [place] [address] PCP - General 12/31/13 documented as of this encounter
--- OUTSIDE RECORDS SUMMARY | 2024-02-11 20:38 | XMS_ITS | Encounter Summary ---
Author Organization [facility] Address [address] [place] [address] Care Team Providers Care Loan Service Officer Name Role Phone Odilon Alejo MD Primary Care Provider [phone] Reason for Visit * (Routine/Next Available) - Receiving Office to Obtain Authorization Specialty Diagnoses / Procedures Referred By Contac t Referred To Contact Procedures XR OUTSIDE IMAGES CHEST Unknown, Provider, MD Referral ID Status Reason Start Date Expiration Date Visits Requested Visits Authorized [id number] Receiving Office to Obtain Authorization 12/19/2020 1 1 Encounter Details Date Type Department Care Team (Latest Contact Info) Description 12/16/2020 - 12/16/2020 23:59 EDT Hospital Encounter [facility] Secondary Reads [place] Discharge Disposition: Home or [...] on filedocumented in this encounter Care Teams Loan Service Officer Relationship Specialty Start Date End Date Odilon Alejo MD [address] [place] [address] PCP - General 12/31/13 documented as of this encounter
--- OUTSIDE RECORDS SUMMARY | 2024-02-11 20:38 | XMS_ITS | Encounter Summary ---
Author Organization [facility] Address [address] [place] [address] Care Team Providers Care Per Diem Physical Therapist Assistant Name Role Phone Odilon Alejo MD Primary Care Provider [phone] Reason for Visit * (Routine/Next Available) - Receiving Office to Obtain Authorization Specialty Diagnoses / Procedures Referred By Contac t Referred To Contact Procedures XR OUTSIDE IMAGES CHEST Unknown, Provider, MD Referral ID Status Reason Start Date Expiration Date Visits Requested Visits Authorized [id number] Receiving Office to Obtain Authorization 12/19/2020 1 1 Encounter Details Date Type Department Care Team (Latest Contact Info) Description 12/12/2020 Hospital Encounter [facility] Secondary Reads [place] Discharge Disposition: Home [...] Comments XR OUTSIDE IMAGES CHEST Routine 12/19/2020 14:54 EST documented in this encounter Results * XR OUTSIDE IMAGES CHEST (12/19/2020 14:54 EST) Narrative 12/19/2020 14:54 EST This is a non-reportable exam. us Provider Unknown IMCristy OTHER IMAGING ORDERABLES Final Result documented in this encounter Visit Diagnoses Not on filedocumented in this encounter Care Teams Per Diem Physical Therapist Assistant Relationship Specialty Start Date End Date Odilon Alejo MD [address] [place] [address] PCP - General 12/31/13 documented as of this encounter
--- OUTSIDE RECORDS SUMMARY | 2024-02-11 20:38 | XMS_ITS | Encounter Summary ---
Author Organization [facility] Address [address] [place] [address] Care Team Providers Care Basting Cleaner Name Role Phone Odilon Alejo MD Primary Care Provider [phone] Encounter Details Date Type Department Care Team (Late st Contact Info) Description 11/25/2021 Lab Requisition [facility] Pathology & Laboratory Medicine - [facility] [address] [place] [address] Outr Resulting Lab, Provider Social History Tobacco Use Types Packs/Day Years [...] 04/07/2019 16:01 EST documented in this encounter Plan of Treatment Not on file documented as of this encounter Procedures Procedure Name Priority Date/Time Associated Diagnosis Comments CCP ANTIBODIES Routine 11/24/2021 15:00 EDT RHEUMATOID FACTOR Routine 11/24/2021 15: 00 EDT ANTI NUCLEAR AB (ISIDRA), IFA Routine 11/24/2021 15:00 EDT documented in this encounter Results * RHEUMATOID FACTOR (11/24/2021 15:00 EDT) Rheumatoid Factor <8.6 <12.0 IU/mL 11/26/2021 17:19 EDT [facility] Blood VENOUS BLOOD / Unknown 11/24/2021 15:00 EDT 11/26/2021 17:06 EDT us Provider Outr Resulting Lab CHEMISTRY & BLOOD GA S ORDERABLES Final Result Performing Organization Address [facility] Co de Phone Number [facility] [address] [place] [address] * ANTI NUCLEAR AB (ISIDRA), IFA (11/24/2021 15:00 EDT) Pathologist [facility] ISIDRA Interpretation Negative Negative 2021 14:16 EDT [facility] Comment:No titer performed, ISIDRA Screen is negative. Blood VENOUS BLOOD / Unknown 11/24/2021 15:00 EDT 11/26/2021 17:06 EDT Narrative [facility] - 11/27/2021 14:16 EDT Results were obtained with the INOVA NOVA Lite HEp-2 ISIDRA Kit by indirect immunofluorescence. us Provider Outr Resulting Lab IMMUNOLOGY AND SEROL OGY ORDERABLES Final Result Performing Organization Address City/[facility] Co de Phone Number [facility] [address] [place] [address] * CCP ANTIBODIES (11/24/2021 15:00 EDT) CCP Antibodies <2.5 <5.0 U/mL 11/27/2021 9:31 EDT [facility] Blood VENOUS BLOOD / Unknown 11/24/2021 15:00 EDT 11/26/2021 17:06 EDT us Provider Outr Resulting Lab IMMUNOLOGY AND SEROL OGY ORDERABLES Final Result [facility] [address] [place] [address] documented in this encounter Visit Diagnoses Not on filedocumented in this encounter Care Teams Basting Cleaner Relationship Specialty Start Date End Date Odilon Alejo MD [address] [place] [address] PCP - General 12/31/13 documented as of this encounter
--- OUTSIDE RECORDS SUMMARY | 2024-02-11 20:38 | XMS_ITS | Encounter Summary ---
Author Organization [facility] Address [address] [place] [address] Care Team Providers Care Investigative Shopper Name Role Phone Odilon Alejo MD Primary Care Provider [phone] Encounter Details Date Type Department Care Team (Late st Contact Info) Description 12/10/2020 Lab Requisition [facility] Pathology & Laboratory Medicine - [facility] [address] [place] [address] Outr Resulting Lab, Provider Social History Tobacco [...] Procedure Name Priority Date/Time Associated Diagnosis Comments HIV 1/2 ANTIGEN AND ANTIBODY, 4TH GENERATION Routine 12/10/2020 7:25 EDT documented in this encounter Results * HIV 1/2 ANTIGEN AND ANTIBODY, 4TH GENERATION (12/10/2020 7:25 EDT) HIV 1 and 2 Antibody/p24 Antigen, 4th Generation Negative Negative 12/12/2020 11:42 EDT [facility] Comment: If acute HIV-1 infection is suspected in a high risk ??patient, submit plasma specimen for HIV-1 RNA quantitation test. Fourth Generation assay performed on the Siemens Jobzellaaur. Blood VENOUS BLOOD / Unknown 12/10/2020 7:25 EDT 12/11/2020 15:53 EDT us Provider Outr Resulting Lab IMMUNOLOGY AND SEROL OGY ORDERABLES Final Result [facility] [address] [place] [address] documented in this encounter Visit Diagnoses Not on filedocumented in this encounter Care Teams Investigative Shopper Relationship Specialty Start Date End Date Odilon Alejo MD [address] [place] [address] PCP - General 12/31/13 documented as of this encounter
--- OUTSIDE RECORDS SUMMARY | 2024-02-11 20:38 | XMS_ITS | Encounter Summary ---
Author Organization [facility] Address [address] [place] [address] Care Team Providers Care Wall Insulation Sprayer Name Role Phone Odilon Alejo MD Primary Care Provider [phone] Encounter Details Date Type Department Care Team (Late st Contact Info) Description 01/13/2023 Lab Requisition [facility] Pathology & Laboratory Medicine - [facility] [address] [place] [address] Outr Resulting Lab, Provider Social History Tobacco [...] Procedure Name Priority Date/Time Associated Diagnosis Comments CHLAMYDIA/N. GONORRHOEAE AMPLIFIED NUCLEIC ACID Routine 01/12/2023 10:12 EST documented in this encounter Results * CHLAMYDIA/N. GONORRHOEAE AMPLIFIED RNA (01/12/2023 10:12 EST) Neisseria gonorrhoeae Result Negative Negative 01/15/2023 13:48 EST [facility] Chlamydia trachomatis Result Negative Negative 01/15/2023 13:48 EST [facility] Urine URINE / Unknown 01/12/2023 1 0:12 EST 01/14/2023 22:46 EST us Provider Outr Resulting Lab MICROBIOLOGY - GENER AL ORDERABLES Final Result Performing Organization Address City/State/[facility] Co de Phone Number [facility] [address] [place] [address] documented in this encounter Visit Diagnoses Not on filedocumented in this encounter Care Teams Wall Insulation Sprayer Relationship Specialty Start Date End Date Odilon Alejo MD [address] [place] [address] PCP - General 12/31/13 documented as of this encounter
--- OUTSIDE RECORDS SUMMARY | 2024-02-11 20:38 | XMS_ITS | Encounter Summary ---
Author Organization [facility] Address [address] [place] [address] Care Team Providers Care Tent Assembler Name Role Phone Odilon Alejo MD Primary Care Provider [phone] Encounter Details Date Type Department Care Team (Late st Contact Info) Description 12/10/2020 Lab Requisition [facility] Pathology & Laboratory Medicine - [facility] [address] [place] [address] Outr Resulting Lab, Provider Social History Tobacco [...] Procedure Name Priority Date/Time Associated Diagnosis Comments ACUTE HEPATITIS PROFILE Routine 12/10/2020 7:25 EDT documented in this encounter Results * ACUTE HEPATITIS PROFILE (12/10/2020 7:25 EDT) Hep B Surface Ag Negative Negative 12/12/2020 11:31 EDT [facility] Hep C Antibody Negative Negative 12/12/2020 11:31 EDT [facility] Hepatitis A Antibody, IgM Negative Negative 12/12/2020 11:31 EDT [facility] Comment:The results of this assay can be falsely lowered due to the consumption of Biotin. Hepatitis B Core Ab, Total Negative Negative 12/12/2020 11:31 EDT [facility] Blood VENOUS BLOOD / Unknown 12/10/2020 7:25 EDT 12/11/2020 15:53 EDT us Provider Outr Resulting Lab CHEMISTRY & BLOOD GA S ORDERABLES Final Result Performing Organization Address City/State/[place] Co de Phone Number [facility] [address] [place] [address] documented in this encounter Visit Diagnoses Not on filedocumented in this encounter Care Teams Tent Assembler Relationship Specialty Start Date End Date Odilon Alejo MD [address] [place] [address] PCP - General 12/31/13 documented as of this encounter
--- OUTSIDE RECORDS SUMMARY | 2024-02-11 20:38 | XMS_ITS | Encounter Summary ---
Author Organization [facility] Address [address] [place] [address] Care Team Providers Care Revenue Accountant Name Role Phone Odilon Alejo MD Primary Care Provider [phone] Encounter Details Date Type Department Care Team (Late st Contact Info) Description 07/15/[address] [facility] Pathology & Laboratory Medicine - [facility] [address] [place] [address] Outr Resulting Lab, Provider Social History Tobacco [...] Procedure Name Priority Date/Time Associated Diagnosis Comments FECAL BACTERIAL PATHOGENS BY PCR Routine 07/15/2020 7:12 EDT documented in this encounter Results * FECAL BACTERIAL PATHOGENS BY PCR (07/15/2020 7:12 EDT) Salmonella PCR Negative Negative 07/16/2020 11:03 EDT [facility] Shigella/Enteroin vasive E. coli Negative Negative 07/16/2020 11:03 EDT [facility] HN LAB CAMPYLOBACTER PCR Negative Negative 07/16/2020 11:03 EDT [facility] Shiga Toxin PCR Negative Negative 11:03 EDT [facility] Feces SPECIMEN FROM RECTUM / Unknown Stool Collect / Unknown 07/15/2020 7:12 EDT 07/15/2020 22:38 EDT us Provider Outr Resulting Lab MICROBIOLOGY - GENER AL ORDERABLES Final Result Performing Organization Address City/State/[facility] Co de Phone Number [facility] [address] [place] [address] documented in this encounter Visit Diagnoses Not on filedocumented in this encounter Care Teams Revenue Accountant Relationship Specialty Start Date End Date Odilon Alejo MD [address] [place] [address] PCP - General 12/31/13 documented as of this encounter
--- OUTSIDE RECORDS SUMMARY | 2024-02-11 20:38 | XMS_ITS | Encounter Summary ---
Author Organization [facility] Address [address] [place] [address] Care Team Providers Care Chapter Relations Administrator Name Role Phone Odilon Alejo MD Primary Care Provider [phone] Reason for Visit * (Routine/Next Available) - Receiving Office to Obtain Authorization Specialty Diagnoses / Procedures Referred By Contac t Referred To Contact Procedures XR OUTSIDE IMAGES CHEST Unknown, Provider, MD Referral ID Status Reason Start Date Expiration Date Visits Requested Visits Authorized [id number] Receiving Office to Obtain Authorization 12/19/2020 1 1 Encounter Details Date Type Department Care Team (Latest Contact Info) Description 12/13/2020 0:05 EDT - 12/13/2020 23:59 EDT Hospital Encounter [facility] Secondary Reads [place] Discharge Disposition: Home or [...] Comments XR OUTSIDE IMAGES CHEST Routine 12/19/2020 14:57 EST documented in this encounter Results * XR OUTSIDE IMAGES CHEST (12/19/2020 14:57 EST) Narrative 12/19/2020 14:57 EST This is a non-reportable exam. us Provider Unknown MD NARVAEZ OTHER IMAGING ORDERABLES Final Result documented in this encounter Visit Diagnoses Not on filedocumented in this encounter Care Teams Chapter Relations Administrator Relationship Specialty Start Date End Date Odilon Alejo MD [address] [place] [address] PCP - General 12/31/13 documented as of this encounter
--- OUTSIDE RECORDS SUMMARY | 2024-02-11 20:38 | XMS_ITS | Encounter Summary ---
Author Organization [facility] Address [address] [place] [address] Care Team Providers Care Salesperson Men'S Hats Name Role Phone Odilon Alejo MD Primary Care Provider [phone] Reason for Visit * (Routine/Next Available) - Receiving Office to Obtain Authorization Specialty Diagnoses / Procedures Referred By Contac t Referred To Contact Procedures CT OUTSIDE IMAGES NEURO Unknown, Provider, MD Referral ID Status Reason Start Date Expiration Date Visits Requested Visits Authorized [id number] Receiving Office to Obtain Authorization 12/19/2020 1 1 Encounter Details Date Type Department Care Team (Latest Contact Info) Description 12/13/2020 Hospital Encounter [facility] Secondary Reads [place] Discharge Disposition: Home [...] Date/Time Associated Diagnosis Comments CT OUTSIDE IMAGES NEURO Routine 12/19/2020 14:56 EST documented in this encounter Results * CT OUTSIDE IMAGES NEURO (12/19/2020 14:56 EST) Narrative 12/19/2020 14:56 EST This is a non-reportable exam. us Provider Unknown MD NARVAEZ OTHER IMAGING ORDERABLES Final Result documented in this encounter Visit Diagnoses Not on filedocumented in this encounter Care Teams Salesperson Men'S Hats Relationship Specialty Start Date End Date Odilon Alejo MD [address] [place] [address] PCP - General 12/31/13 documented as of this encounter
--- OUTSIDE RECORDS SUMMARY | 2024-02-11 20:38 | XMS_ITS | Encounter Summary ---
Author Organization [facility] Address [address] [place] [address] Care Team Providers Care Gelatin Powder Mixer Name Role Phone Odilon Alejo MD Primary Care Provider [phone] Encounter Details Date Type Department Care Team (Late st Contact Info) Description 06/05/2019 7:45 EDT Phlebotomy Only [facility] - [facility] [address] [place], [place] [id number] Associate Professor Of Geology, [facility] Phlebotomy STI (sexually transmitted infection) (Primary Dx) Social [...] Procedure Name Priority Date/Time Associated Diagnosis Comments SYPHILIS SEROLOGY Routine 06/05/2019 8:0 1 EDT STI (sexually transmitted infection) CHLAMYDIA/N. GONORRHOEAE AMPLIFIED NUCLEIC ACID Routine 06/05/2019 8:01 EDT STI (sexually transmitted infection) HEPATITIS C AB W REFLEX TO HCV RNA BY PCR Routine 06/05/2019 8:01 EDT STI (sexually transmitted infection) HEPATITIS B CORE ANTIBODY (TOTAL) Routine 06/05/2019 8:01 EDT STI (sexually transmitted infection) HEPATITIS B SURFACE ANTIBODY Routine 06/05/2019 8:01 EDT STI (sexually transmitted infection) HEPATITIS B SURFACE ANTIGEN Routine 06/05/2019 8:01 EDT STI (sexually transmitted infection) HIV 1/2 ANTIGEN AND ANTIBODY, 4TH GENERATION Routine 06/05/2019 8:01 EDT STI (sexually transmitted infection) documented in this encounter Results * HEPATITIS B CORE ANTIBODY (TOTAL) (06/05/2019 8:01 EDT) Hepatitis B Core Ab, Total Negative Negative 06/05/2019 10:45 EDT [facility] Blood VENOUS BLOOD / Unknown Venipuncture / Unknown 06/05/2019 8:01 EDT 06/05/2019 8:01 EDT us Annalise Hancock NP CHEMISTRY & BLOOD GAS ORDERABLE S Final Result [facility] [address] [place] [address] * HEPATITIS B SURFACE ANTIBODY (06/05/2019 8:01 EDT) Hep B Surface Ab, Quantitative <3.1 See Note mIU/mL 06/05/2019 10:05 EDT [facility] Comment: Reference Range for Hep B Surface Ab, Quant: Positive: >= 10.0 mIU/mL Negative: ??< 10.0 mIU/mL Patient is presumed to not be immune to infection with Hepatitis B Virus. Hep B Surface Ab, Qualitative Negative See Note 06/05/2019 10:05 EDT [facility] Comment: Reference Range for Hep B Surface Ab, Qual: Unvaccinated: ??Negative Vaccinated: ??Positive Blood VENOUS BLOOD / Unknown Venipuncture / Unknown 06/05/2019 8:01 EDT 06/05/2019 8:01 EDT us Annalise Hancock ONCOLOGIST CHEMISTRY & BLOOD GAS ORDERABLE S Final Result [facility] [address] [place] [address] * HEPATITIS B SURFACE ANTIGEN (06/05/2019 8:01 EDT) Hep B Surface Ag Negative Negative 06/05/2019 10:35 EDT [facility] Blood VENOUS BLOOD / Unknown Venipuncture / Unknown 06/05/2019 8:01 EDT 06/05/2019 8:01 EDT us Annalise Hancock ONCOLOGIST CHEMISTRY & BLOOD GAS ORDERABLE S Final Result Performing Organization Address City/[facility]/ZIP Co de Phone Number [facility] [address] [place] [address] * HEPATITIS C AB W REFLEX TO HCV RNA BY PCR (06/05/2019 8:01 EDT) Hep C Antibody Negative Negative 06/05/2019 10:45 EDT [facility] Blood VENOUS BLOOD / Unknown Venipuncture / Unknown 06/05/2019 8:01 EDT 06/05/2019 8:01 EDT us Annalise Dalaloe ONCOLOGIST CHEMISTRY & BLOOD GAS ORDERABLE S Final Result [facility] [address] [place] [address] * CHLAMYDIA/N. GONORRHOEAE AMPLIFIED RNA (06/05/2019 8:01 EDT) Neisseria gonorrhoeae Result Negative Negative 06/05/2019 14:23 EDT [facility] Chlamydia trachomatis Result Negative Negative 06/05/2019 14:23 EDT [facility] Urine URINE / Unknown Urine Collect / Unknown 06/05/2019 8:01 EDT 06/05/2019 8:01 EDT us Annalise Hanocck NP MICROBIOLOGY - GENERAL ORDERABL ES Final Result [facility] [address] [place] [address] * SYPHILIS SEROLOGY (06/05/2019 8:01 EDT) Syphilis Serology Negative Negative 06/05/2019 10:59 EDT [facility] Blood VENOUS BLOOD / Unknown Venipuncture / Unknown 06/05/2019 8:01 EDT 06/05/2019 8:01 EDT Annalise Hancock NP IMMUNOLOGY AND SEROLOGY ORDERAB LES Final Result [facility] [address] [place] [address] * HIV 1/2 ANTIGEN AND ANTIBODY, 4TH GENERATION (06/05/2019 8:01 EDT) HIV 1 and 2 Antibody/p24 Antigen, 4th Generation Negative Negative 06/05/2019 10:45 EDT [facility] Comment: If acute HIV-1 infection is suspected in a high risk ??patient, submit plasma specimen for HIV-1 RNA quantitation test. Fourth Generation assay performed on the Siemens Centaur. Blood VENOUS BLOOD / Unknown Venipuncture / Unknown 06/05/2019 8:01 EDT 06/05/2019 8:01 EDT us Annalise Hancock NP IMMUNOLOGY AND SEROLOGY ORDERAB LES Final Result [facility] [address] [place] [address] documented in this encounter Visit Diagnoses Diagnosis STI (sexually transmitted infection)- Primary Venereal disease, unspecified documented in this encounter Care Teams Gelatin Powder Mixer Relationship Specialty Start Date End Date Odilon Alejo MD [address] [place] [address] PCP - General 12/31/13 documented as of this encounter
--- OUTSIDE RECORDS SUMMARY | 2024-02-11 20:38 | XMS_ITS | Encounter Summary ---
Author Organization [facility] Address [address] [place] [address] Care Team Providers Care Night Baker Name Role Phone Odilon Alejo MD Primary Care Provider [phone] Reason for Visit * (Routine/Next Available) - Receiving Office to Obtain Authorization Specialty Diagnoses / Procedures Referred By Contac t Referred To Contact Procedures XR OUTSIDE IMAGES CHEST Unknown, Provider, MD Referral ID Status Reason Start Date Expiration Date Visits Requested Visits Authorized [id number] Receiving Office to Obtain Authorization 12/19/2020 1 1 Encounter Details Date Type Department Care Team (Latest Contact Info) Description 12/14/2020 - 12/14/2020 23:59 EDT Hospital Encounter [facility] Secondary Reads [place] Discharge Disposition: Home [...] Comments XR OUTSIDE IMAGES CHEST Routine 12/19/2020 15:01 EST documented in this encounter Results * XR OUTSIDE IMAGES CHEST (12/19/2020 15:01 EST) Narrative 12/19/2020 15:01 EST This is a non-reportable exam. us Provider Unknown IMCristy OTHER IMAGING ORDERABLES Final Result documented in this encounter Visit Diagnoses Not on filedocumented in this encounter Care Teams Night Baker Relationship Specialty Start Date End Date Odilon Alejo MD [address] [place] [address] PCP - General 12/31/13 documented as of this encounter
--- OUTSIDE RECORDS SUMMARY | 2024-02-11 20:38 | XMS_ITS | Encounter Summary ---
Author Organization [facility] Address [address] [place] [address] Care Team Providers Care Expert Witness Name Role Phone Odilon Alejo MD Primary Care Provider [phone] Reason for Visit * (Routine/Next Available) - Receiving Office to Obtain Authorization Specialty Diagnoses / Procedures Referred By Contac t Referred To Contact Procedures XR OUTSIDE IMAGES CHEST Unknown, Provider, MD Referral ID Status Reason Start Date Expiration Date Visits Requested Visits Authorized [id number] Receiving Office to Obtain Authorization 12/19/2020 1 1 Encounter Details Date Type Department Care Team (Latest Contact Info) Description 12/15/2020 0:05 EDT - 12/15/2020 23:59 EDT Hospital Encounter [facility] Secondary Reads [place] Discharge Disposition: Home [...] Comments XR OUTSIDE IMAGES CHEST Routine 12/19/2020 15:02 EST documented in this encounter Results * XR OUTSIDE IMAGES CHEST (12/19/2020 15:02 EST) Narrative 12/19/2020 15:02 EST This is a non-reportable exam. us Provider Unknown MD NARVAEZ OTHER IMAGING ORDERABLES Final Result documented in this encounter Visit Diagnoses Not on filedocumented in this encounter Care Teams Expert Witness Relationship Specialty Start Date End Date Odilon Alejo MD [address] [place] [address] PCP - General 12/31/13 documented as of this encounter
--- OUTSIDE RECORDS SUMMARY | 2024-02-11 20:38 | XMS_ITS | Encounter Summary ---
Author Organization [facility] Address [address] [place] [address] Care Team Providers Care Caption Writer Name Role Phone Odilon Alejo MD Primary Care Provider [phone] Reason for Visit * (Routine/Next Available) - Receiving Office to Obtain Authorization Specialty Diagnoses / Procedures Referred By Contac t Referred To Contact Procedures CT OUTSIDE IMAGES CHEST Unknown, Provider, MD Referral ID Status Reason Start Date Expiration Date Visits Requested Visits Authorized [id number] Receiving Office to Obtain Authorization 12/19/2020 1 1 Encounter Details Date Type Department Care Team (Latest Contact Info) Description 12/12/2020 Hospital Encounter [facility] Secondary Reads [place] Discharge Disposition: [...] Comments CT OUTSIDE IMAGES CHEST Routine 12/19/2020 14:53 EST documented in this encounter Results * CT OUTSIDE IMAGES CHEST (12/19/2020 14:53 EST) Narrative 12/19/2020 14:53 EST This is a non-reportable exam. us Provider Unknown MD NARVAEZ OTHER IMAGING ORDERABLES Final Result documented in this encounter Visit Diagnoses Not on filedocumented in this encounter Care Teams Caption Writer Relationship Specialty Start Date End Date Odilon Alejo MD [address] [place] [address] PCP - General 12/31/13 documented as of this encounter
--- OUTSIDE RECORDS SUMMARY | 2024-02-11 20:38 | XMS_ITS | Referral Summary ---
Author Organization [facility] Address [address] [place] [address] Care Team Providers Care Bus Info Consultant Name Role Phone Odilon Alejo MD Primary Care Provider [phone] Allergies Active Allergy Reactions Criticality Noted Date Comments Atomoxetine 01/10/2023 Prednisone Headaches 01/10/2023 Sulfa (Sulfonamide Antibiotics) 10/12 As a child Medications GLUCOSAMINE/TRACEY DROITIN SULF A (GLUCOSAMINE-CHO NDROITIN ORAL) Take by mouth daily. Active Multivitamins with Minerals tablet Take 1 Tablet by mouth daily. Active metoprolol SUCCinate (TOPROL-XL) 100 mg tablet Take 1 Tablet by mouth daily. 11/04/2022 Active Active Problems Problem Noted Date Diagnosed Date Tear of medial cartilage or meniscus of knee, cu rrent 05/21/2014 Medial meniscus tear 04/20/2014 Acute medial meniscus tear of right knee 015 Knee pain, bilateral 03/19/2014 Social History Tobacco Use Types Packs/Day Years [...] 12:26 EST Sexual Orientation Not on file Last Filed Vital Signs Vital Sign Reading Time Taken Comments Blood Pressure 130/78 01/10/2023 1138 EST Pulse 66 01/10/2023 1138 EST Temperature 36.7 ??C (98 ??F) 01/10/2023 1138 EST Respiratory Rate 16 05/21/2014 1553 EDT Oxygen Saturation 97% 01/10/2023 1138 EST Inhaled Oxygen Concentration - - Weight 108.9 kg (240 lb) 04/07/2019 1558 EST Height 177.8 cm (5' 10) 04/07/2019 1558 EST Body Mass Index 34.44 04/07/2019 1558 EST Functional Status * Because of a physical, mental, or emotional condition, does this person have difficulty doing errands alone such as visiting a doctor's office or shopping? Answer Date of Assessment Author No 04/07/2019 16:01 EST Mental Status * Because of a physical, mental, or emotional condition, does this person have serious difficulty concentrating, remembering, or making decisions? Answer Entry Date Author No 04/07/2019 16:01 EST Plan of Treatment Not on file Procedures Procedure Name Priority Date/Time Associated Diagnosis Comments HEPATITIS C AB W REFLEX TO HCV RNA BY PCR Routine 04/10/2023 15:34 EST from Last 3 Months or Most Recently Relevant to Health Maintenance Results * HEPATITIS C AB W REFLEX TO HCV RNA BY PCR (04/10/2023 15:34 EST) Hep C Antibody Negative Negative 04/11/2023 0:05 EST [facility] Blood VENOUS BLOOD / Unknown 04/10/2023 15:34 EST 04/10/2023 22:51 EST us Provider Outr Resulting Lab CHEMISTRY & BLOOD GA S ORDERABLES Final Result [facility] [address] [place] [address] from Last 3 Months or Most Recently Relevant to Health Maintenance Insurance MEDICAID [place] Care Teams Bus Info Consultant Relationship Specialty Start Date End Date Odilon Alejo MD [address] [place] [address] [id number] [facility] - General 12/31/13
--- OUTSIDE RECORDS SUMMARY | 2024-02-11 20:38 | XMS_ITS ---
Author Organization Unknown Address [address] [place] [phone] Phone Care Team Providers Care Preliminary School Psychologist Name Role Phone REYES Muniz Attending Unavailable REGGIE Martines Primary Unavailable Social History Type Status Start Date [...] Diagnosis Start Date Code Code Sys tem Cardiac arrhythmia 07/12/2022 [id number] SNOMED-CT Personal Care Team Section Performer Name Performer Role Active Date Inactive Da te
--- OUTSIDE RECORDS SUMMARY | 2024-02-11 20:38 | XMS_ITS | Encounter Summary ---
Author Organization [facility] Address [address] [place] [address] Care Team Providers Care Ammonia Distiller Name Role Phone Odilon Alejo MD Primary Care Provider [phone] Reason for Visit * (Routine/Next Available) - Receiving Office to Obtain Authorization Specialty Diagnoses / Procedures Referred By Contac t Referred To Contact Procedures CT OUTSIDE IMAGES CHEST Unknown, Provider, MD Referral ID Status Reason Start Date Expiration Date Visits Requested Visits Authorized [id number] Receiving Office to Obtain Authorization 12/19/2020 1 1 Encounter Details Date Type Department Care Team (Latest Contact Info) Description 12/09/2020 - 12/09/2020 23:59 EDT Hospital Encounter [facility] Secondary Reads [place] Discharge Disposition: Home [...] Comments CT OUTSIDE IMAGES CHEST Routine 12/19/2020 14:52 EST documented in this encounter Results * CT OUTSIDE IMAGES CHEST (12/19/2020 14:52 EST) Narrative 12/19/2020 14:52 EST This is a non-reportable exam. us Provider Unknown MD NARVAEZ OTHER IMAGING ORDERABLES Final Result documented in this encounter Visit Diagnoses Not on filedocumented in this encounter Care Teams Ammonia Distiller Relationship Specialty Start Date End Date Odilon Alejo MD [address] [place] [address] PCP - General 12/31/13 documented as of this encounter
--- OUTSIDE RECORDS SUMMARY | 2024-02-11 20:38 | XMS_ITS | Encounter Summary ---
Author Organization [facility] Address [address] [place] [address] Care Team Providers Care Pediatric Anesthesiologist Name Role Phone Odilon Alejo MD Primary Care Provider [phone] Encounter Details Date Type Department Care Team (Late st Contact Info) Description 12/10/2022 Lab Requisition [facility] Pathology & Laboratory Medicine - [facility] [address] [place] [address] Outr Resulting Lab, Provider Social History Tobacco [...] Procedure Name Priority Date/Time Associated Diagnosis Comments ANAPLASMA AND BABESIA TESTING BY PCR Routine 12/10/2022 15:44 EDT VITAMIN D (25,OH) Routine 12/10/2022 15: 44 EDT LYME AB Routine 12/10/2022 15:44 EDT HIV 1/2 ANTIGEN AND ANTIBODY, 4TH GENERATION Routine 12/10/2022 15:44 EDT documented in this encounter Results * ANAPLASMA AND BABESIA TESTING BY PCR (12/10/2022 15:44 EDT) Anaplasma phagocytophilum Negative Negative 12/11/2022 10:55 EDT [facility] Babesia Species Negative Negative 10:55 EDT [facility] Blood VENOUS BLOOD / Unknown 12/10/2022 15:44 EDT 12/10/2022 22:38 EDT Narrative [facility] - 12/11/2022 10:55 EDT This test was developed and its performance characteristics determined by [facility]. It has not been cleared or approved by the US Food and Drug Administration. FDA does not require this test to go through premarket FDA review. This test is used for clinical purposes. It should not be regarded as investigational or research. This laboratory is certified under the Clinical Laboratory Improvement Amendments (CLIA) as qualified to perform high complexity clinical laboratory testing. us Provider Outr Resulting Lab CHEMISTRY & BLOOD GA S ORDERABLES Final Result [facility] [address] [place] [address] * VITAMIN D (25,OH) (12/10/2022 15:44 EDT) 25OH Vitamin D Tot 39 30 - 100 ng/mL 12/11/2022 11:09 EDT [facility] Comment: Vitamin D 25,OH Interpretive Ranges: Deficiency: ??<10.0 ng/mL Insufficiency: ??10.0 - 30.0 ng/mL Sufficiency: ??30.0 - 100.0 ng/mL Toxicity: ??>100.0 ng/mL Blood VENOUS BLOOD / Unknown 12/10/2022 15:44 EDT 12/10/2022 22:38 EDT us Provider Outr Resulting Lab CHEMISTRY & BLOOD GA S ORDERABLES Final Result Performing Organization Address [facility]/ZIP Co de Phone Number [facility] [address] [place] [address] * LYME AB (12/10/2022 15:44 EDT) Lyme Ab Negative Negative 12/11/2022 11:16 EDT [facility] Blood VENOUS BLOOD / Unknown 12/10/2022 15:44 EDT 12/10/2022 22:38 EDT us Provider Outr Resulting Lab IMMUNOLOGY AND SEROL OGY ORDERABLES Final Result Performing Organization Address [facility] [[email or web address]] Co de Phone Number [facility] [address] [place] [address] * HIV 1/2 ANTIGEN AND ANTIBODY, 4TH GENERATION (12/10/2022 15:44 EDT) HIV 1 and 2 Antibody/p24 Antigen, 4th Generation Negative Negative 12/11/2022 10:13 EDT [facility] Comment:If acute HIV-1 infec tion is suspected in a high risk patient, submit plasma specimen for HIV-1 RNA quantitation test. Blood VENOUS BLOOD / Unknown 12/10/2022 15:44 EDT 12/10/2022 22:38 EDT Narrative [facility] - 12/11/2022 10:13 EDT Fourth Generation assay performed on the Siemens Tribal Novaaur XPT. us Provider Outr Resulting Lab IMMUNOLOGY AND SEROL OGY ORDERABLES Final Result [facility] [address] [place] [address] documented in this encounter Visit Diagnoses Not on filedocumented in this encounter Care Teams Pediatric Anesthesiologist Relationship Specialty Start Date End Date Odilon Alejo MD [address] [place] [address] PCP - General 12/31/13 documented as of this encounter
--- OUTSIDE RECORDS SUMMARY | 2024-02-11 20:38 | XMS_ITS | Encounter Summary ---
Author Organization [facility] Address [address] [place] [address] Care Team Providers Care Reproduction Artist Name Role Phone Odilon Alejo MD Primary Care Provider [phone] Encounter Details Date Type Department Care Team (Late st Contact Info) Description 11/20/2022 Lab Requisition [facility] Pathology & Laboratory Medicine - [facility] [address] [place] [address] Outr Resulting Lab, Provider Social History Tobacco [...] Date/Time Associated Diagnosis Comments SYPHILIS SEROLOGY Routine 11/19/2022 20: 47 EDT HIV 1/2 ANTIGEN AND ANTIBODY, 4TH GENERATION Routine 11/19/2022 20:47 EDT documented in this encounter Results * SYPHILIS SEROLOGY (11/19/2022 20:47 EDT) Syphilis Serology Negative Negative 11/21/2022 11:10 EDT [facility] Blood VENOUS BLOOD / Unknown 11/19/2022 20:47 EDT 11/20/2022 21:48 EDT us Provider Outr Resulting Lab IMMUNOLOGY AND SEROL OGY ORDERABLES Final Result Performing Organization Address [facility]/ZIP Co de Phone Number [facility] [address] [place] [address] * HIV 1/2 ANTIGEN AND ANTIBODY, 4TH GENERATION (11/19/2022 20:47 EDT) HIV 1 and 2 Antibody/p24 Antigen, 4th Generation Negative Negative 11/21/2022 10:26 EDT [facility] Comment:If acute HIV-1 infec tion is suspected in a high risk patient, submit plasma specimen for HIV-1 RNA quantitation test. Blood VENOUS BLOOD / Unknown 11/19/2022 20:47 EDT 11/20/2022 21:48 EDT Narrative [facility] - 11/21/2022 10:26 EDT Fourth Generation assay performed on the Siemens Centaur XPT. us Provider Outr Resulting Lab IMMUNOLOGY AND SEROL OGY ORDERABLES Final Result [facility] [address] [place] [address] documented in this encounter Visit Diagnoses Not on filedocumented in this encounter Care Teams Reproduction Artist Relationship Specialty Start Date End Date Odilon Alejo MD [address] [place] [address] PCP - General 12/31/13 documented as of this encounter
--- OUTSIDE RECORDS SUMMARY | 2024-02-11 20:38 | XMS_ITS | Clinical Summary ---
Author Organization [facility] Address [address] [place] [address] Care Team Providers Care Manufacturing Cost Estimator Name Role Phone Odilon Alejo MD Primary Care Provider [phone] Allergies Active Allergy Reactions Criticality Noted Date [...] right knee 015 Knee pain, bilateral 03/19/2014 Surgical History Surgery Date Site/Laterality Comments KNEE CARTILAGE SURGERY Right arthroscopi c partial medial meniscectomy on 05-21-14 Social History Tobacco Use Types Packs/Day Years [...] 12:26 EST Sexual Orientation Not on file Obstetrics History Last Filed Vital Signs Vital Sign Reading [...] Body Mass Index 34.44 04/07/2019 1558 EST Plan of Treatment Health Maintenance Due Date Last Done Comments Pneumococcal Immunization (1 of 2 - PCV) 1986 Hepatitis B Vaccine (1 of 3 - 19+ 3-dose series) 07/26/1999 COVID-19 Vaccine (2023- season) 2023 Hepatitis C Screen Completed 04/10/2023, 1 03/12/2022, 06/05/2019 Procedures Procedure Name Priority Date/Time Associated Diagnosis Comments HEPATITIS C AB W REFLEX TO HCV RNA BY PCR Routine 04/10/2023 15:34 EST from Last 3 Months or Most Recently Relevant to Health Maintenance Results * HEPATITIS C AB W REFLEX TO HCV RNA BY PCR (04/10/2023 15:34 EST) Hep C Antibody Negative Negative 04/11/2023 0:05 EST [facility] Blood VENOUS BLOOD / Unknown 04/10/2023 15:34 EST 04/10/2023 22:51 EST us Provider Outr Resulting Lab CHEMISTRY & BLOOD GA S ORDERABLES Final Result [facility] [address] [place] [address] from Last 3 Months or Most Recently Relevant to Health Maintenance Insurance MEDICAID [place] Care Teams Manufacturing Cost Estimator Relationship Specialty Start Date End Date Odilon Alejo MD [address] [place] [address] [facility] - General 12/31/13
--- OUTSIDE RECORDS SUMMARY | 2024-02-11 20:38 | XMS_ITS | Encounter Summary ---
Author Organization [facility] Address [address] [place] [address] Care Team Providers Care Care Provider Name Role Phone Odilon Alejo MD Primary Care Provider [phone] Encounter Details Date Type Department Care Team (Latest Contact Info) Description 06/05/2019 Travel Social History Tobacco Use Types Packs/Day Years [...] on file documented as of this encounter Visit Diagnoses Not on filedocumented in this encounter Care Teams Care Provider Relationship Specialty Start Date End Date Odilon Alejo MD [address] [place] [address] PCP - General 12/31/13 documented as of this encounter
--- OUTSIDE RECORDS SUMMARY | 2024-02-11 20:38 | XMS_ITS | Encounter Summary ---
Author Organization [facility] Address [address] [place] [address] Care Team Providers Care Tong Hooker Name Role Phone Odlion Alejo MD Primary Care Provider [phone] Reason for Visit * (Routine/Next Available) - Receiving Office to Obtain Authorization Specialty Diagnoses / Procedures Referred By Contac t Referred To Contact Procedures XR OUTSIDE IMAGES CHEST Unknown, Provider, MD Referral ID Status Reason Start Date Expiration Date Visits Requested Visits Authorized [id number] Receiving Office to Obtain Authorization 12/19/2020 1 1 Encounter Details Date Type Department Care Team (Latest Contact Info) Description 12/13/[address] [facility] Secondary Reads [place] Discharge Disposition: Home [...] Comments XR OUTSIDE IMAGES CHEST Routine 12/19/2020 14:56 EST documented in this encounter Results * XR OUTSIDE IMAGES CHEST (12/19/2020 14:56 EST) Narrative 12/19/2020 14:56 EST This is a non-reportable exam. us Provider Unknown IMCristy OTHER IMAGING ORDERABLES Final Result documented in this encounter Visit Diagnoses Not on filedocumented in this encounter Care Teams Tong Hooker Relationship Specialty Start Date End Date Odilon Alejo MD [address] [place] [address] PCP - General 12/31/13 documented as of this encounter
--- OUTSIDE RECORDS SUMMARY | 2024-02-11 20:38 | XMS_ITS | Encounter Summary ---
Author Organization [facility] Address [address] [place] [address] Care Team Providers Care Voice Network Administrator Name Role Phone Odilon Alejo MD Primary Care Provider [phone] Encounter Details Date Type Department Care Team (Late st Contact Info) Description 03/09/2020 Lab Requisition [facility] Pathology & Laboratory Medicine - [facility] [address] [place] [address] Outr Resulting Lab, Provider Social History Tobacco [...] Procedure Name Priority Date/Time Associated Diagnosis Comments LYME AB Routine 03/09/2020 9:39 EST RHEUMATOID FACTOR Routine 03/09/2020 9:3 9 EST ANTI NUCLEAR AB (ISIDRA), IFA Routine 03/09/2020 9:39 EST documented in this encounter Results * LYME AB (03/09/2020 9:39 EST) Lyme Ab Negative Negative 03/10/2020 10:06 EST [facility] Comment:New 3rd generation a ssay in use 07/22/2019 Blood VENOUS BLOOD / Unknown 03/09/2020 9:39 EST 03/09/2020 21:04 EST us Provider Outr Resulting Lab IMMUNOLOGY AND SEROL OGY ORDERABLES Final Result [facility] [address] [place] [address] * RHEUMATOID FACTOR (03/09/2020 9:39 EST) Rheumatoid Factor <8.6 <12.0 IU/mL 03/09/2020 21:24 EST [facility] Blood VENOUS BLOOD / Unknown 03/09/2020 9:39 EST 03/09/2020 21:04 EST us Provider Outr Resulting Lab CHEMISTRY & BLOOD GA S ORDERABLES Final Result [facility] [address] [place] [address] * ANTI NUCLEAR AB (ISIDRA), IFA (03/09/2020 9:39 EST) ISIDRA Interpretation Negative Negative 2020 14:13 EST [facility] Comment:No titer performed, ISIDRA Screen is negative. Blood VENOUS BLOOD / Unknown 03/09/2020 9:39 EST 03/09/2020 21:04 EST Narrative [facility] - 03/10/2020 14:13 EST Results were obtained with the INOVA NOVA Lite HEp-2 ISIDRA Kit by indirect immunofluorescence. us Provider Outr Resulting Lab IMMUNOLOGY AND SEROL OGY ORDERABLES Final Result [facility] [address] [place] [address] documented in this encounter Visit Diagnoses Not on filedocumented in this encounter Care Teams Voice Network Administrator Relationship Specialty Start Date End Date Odilon Alejo MD [address] [place] [address] PCP - General 12/31/13 documented as of this encounter
--- OUTSIDE RECORDS SUMMARY | 2024-02-11 20:38 | XMS_ITS | Encounter Summary ---
Author Organization [facility] Address [address] [place] [address] Care Team Providers Care Graduating Machine Operator Name Role Phone Odilon Alejo MD Primary Care Provider [phone] Encounter Details Date Type Department Care Team (Late st Contact Info) Description 11/19/2022 Lab Requisition [facility] Pathology & Laboratory Medicine - [facility] [address] [place] [address] Outr Resulting Lab, Provider Social History Tobacco [...] Comments CHLAMYDIA/N. GONORRHOEAE AMPLIFIED NUCLEIC ACID Routine 11/19/2022 13:48 EDT documented in this encounter Results * CHLAMYDIA/N. GONORRHOEAE AMPLIFIED RNA (11/19/2022 13:48 EDT) Neisseria gonorrhoeae Result Negative Negative 11/20/2022 13:33 EDT [facility] Chlamydia trachomatis Result Negative Negative 11/20/2022 13:33 EDT [facility] Urine URINE / Unknown 11/19/2022 1 3:48 EDT 11/20/2022 7:31 EDT us Provider Outr Resulting Lab MICROBIOLOGY - GENER AL ORDERABLES Final Result [facility] [address] [place] [address] documented in this encounter Visit Diagnoses Not on filedocumented in this encounter Care Teams Graduating Machine Operator Relationship Specialty Start Date End Date Odilon Alejo MD [address] [place] [address] PCP - General 12/31/13 documented as of this encounter
--- OUTSIDE RECORDS SUMMARY | 2024-02-11 20:38 | XMS_ITS | Encounter Summary ---
Author Organization [facility] Address [address] [place] [address] Care Team Providers Care Kindergarten Paraprofessional Name Role Phone Odilon Alejo MD Primary Care Provider [phone] Reason for Visit * (Routine/Next Available) - Receiving Office to Obtain Authorization Specialty Diagnoses / Procedures Referred By Contac t Referred To Contact Procedures XR OUTSIDE IMAGES CHEST Unknown, Provider, MD Referral ID Status Reason Start Date Expiration Date Visits Requested Visits Authorized [id number] Receiving Office to Obtain Authorization 12/19/2020 1 1 Encounter Details Date Type Department Care Team (Latest Contact Info) Description 12/18/2020 - 12/18/2020 23:59 EST Hospital Encounter [facility] Secondary Reads [place] Discharge Disposition: Home [...] Comments XR OUTSIDE IMAGES CHEST Routine 12/19/2020 15:04 EST documented in this encounter Results * XR OUTSIDE IMAGES CHEST (12/19/2020 15:04 EST) Narrative 12/19/2020 15:04 EST This is a non-reportable exam. us Provider Unknown IMCristy OTHER IMAGING ORDERABLES Final Result documented in this encounter Visit Diagnoses Not on filedocumented in this encounter Care Teams Kindergarten Paraprofessional Relationship Specialty Start Date End Date Odilon Alejo MD [address] [place] [address] PCP - General 12/31/13 documented as of this encounter
--- OUTSIDE RECORDS SUMMARY | 2024-02-11 20:38 | XMS_ITS ---
Author Organization Unknown Address [address] [place] [phone] Phone Care Team Providers Care Emergency Management Director Name Role Phone REYES Muniz Attending Unavailable [...] Date Code Code Sys tem Cardiac arrhythmia 09/17/2022 [id number] SNOMED-CT Personal Care Team Section Performer Name Performer Role Active Date Inactive Da te
--- OUTSIDE RECORDS SUMMARY | 2024-02-11 20:38 | XMS_ITS | Encounter Summary ---
Author Organization [facility] Address [address] [place] [address] Care Team Providers Care Rigger Third Name Role Phone Odilon Alejo MD Primary Care Provider [phone] Encounter Details Date Type Department Care Team (Late st Contact Info) Description 04/10/2023 Lab Requisition [facility] Pathology & Laboratory Medicine - [facility] [address] [place] [address] Outr Resulting Lab, Provider Social History Tobacco [...] Date/Time Associated Diagnosis Comments SYPHILIS SEROLOGY Routine 04/10/2023 15: 34 EST HEPATITIS C AB W REFLEX TO HCV RNA BY PCR Routine 04/10/2023 15:34 EST HEPATITIS B SURFACE ANTIGEN Routine 04/10/2023 15:34 EST HIV 1/2 ANTIGEN AND ANTIBODY, 4TH GENERATION Routine 04/10/2023 15:34 EST documented in this encounter Results * HEPATITIS C AB W REFLEX TO HCV RNA BY PCR (04/10/2023 15:34 EST) Hep C Antibody Negative Negative 04/11/2023 0:05 EST [facility] Blood VENOUS BLOOD / Unknown 04/10/2023 15:34 EST 04/10/2023 22:51 EST us Provider Outr Resulting Lab CHEMISTRY & BLOOD GA S ORDERABLES Final Result [facility] [address] [place] [address] * HEPATITIS B SURFACE ANTIGEN (04/10/2023 15:34 EST) Hep B Surface Ag Negative Negative 04/10/2023 23:36 EST [facility] Blood VENOUS BLOOD / Unknown 04/10/2023 15:34 EST 04/10/2023 22:51 EST us Provider Outr Resulting Lab CHEMISTRY & BLOOD GA S ORDERABLES Final Result Performing Organization Address City/[facility]/ZIP Co de Phone Number [facility] [address] [place] [address] * HIV 1/2 ANTIGEN AND ANTIBODY, 4TH GENERATION (04/10/2023 15:34 EST) HIV 1 and 2 Antibody/p24 Antigen, 4th Generation Negative Negative 04/11/2023 0:57 EST [facility] Comment:If acute HIV-1 infec tion is suspected in a high risk patient, submit plasma specimen for HIV-1 RNA quantitation test. Blood VENOUS BLOOD / Unknown 04/10/2023 15:34 EST 04/10/2023 22:51 EST Narrative [facility] - 04/11/2023 0:57 EST Fourth Generation assay performed on the Siemens Centaur XPT. us Provider Outr Resulting Lab IMMUNOLOGY AND SEROL OGY ORDERABLES Final Result [facility] [address] [place], [place] [id number] * SYPHILIS SEROLOGY (04/10/2023 15:34 EST) Syphilis Serology Negative Negative 04/11/2023 10:47 EST [facility] Blood VENOUS BLOOD / Unknown 04/10/2023 15:34 EST 04/10/2023 22:51 EST us Provider Outr Resulting Lab IMMUNOLOGY AND SEROL OGY ORDERABLES Final Result Performing Organization Address City/[facility]/ZIP Co de Phone Number [facility] [address] [place], [place] [id number] documented in this encounter Visit Diagnoses Not on filedocumented in this encounter Care Teams Rigger Third Relationship Specialty Start Date End Date Odilon Alejo MD [address] [place] [address] PCP - General 12/31/13 documented as of this encounter
--- OUTSIDE RECORDS SUMMARY | 2024-02-11 20:38 | XMS_ITS | Encounter Summary ---
Author Organization [facility] Address [address] [place] [address] Care Team Providers Care Architectural Renderer Name Role Phone Odilon Alejo MD Primary Care Provider [phone] Reason for Visit * Reason Comments Laceration Encounter Details Date Type Department Care Team (Late st Contact Info) Description 01/10/2023 11:00 EST Walk-In [facility] [address] [place] [id number] Cyn Euceda NP [address] [facility] [address] [place] [address] Laceration of left index finger without foreign body without damage to nail, initial encounter (Primary Dx) Social History Tobacco Use Types [...] on file documented as of this encounter Last Filed Vital Signs Vital Sign Reading Time Taken Comments Blood Pressure 130/78 01/10/2023 1138 EST Pulse 66 01/10/2023 1138 EST Temperature 36.7 ??C (98 ??F) 01/10/2023 1138 EST Respiratory Rate - - Oxygen Saturation 97% 01/10/2023 1138 EST Inhaled Oxygen Concentration - - Weight - - Height - - Body Mass Index - - documented in this encounter Functional Status * Because of [...] 04/07/2019 16:01 EST documented in this encounter Patient Instructions * Patient Instructions* Cyn Euceda NP - 01/10/2023 11:00 EST Avoid bending finger for next 24 hour Avoid getting wet for the next 12-24 hours Check wound daily for signs or symptoms of infection: increasing redness, swelling, pain, purulent drainage Suture removal in 10-14 days documented in this encounter Progress Notes * Manjula Abreu MA - 01/10/2023 1100 EST CC/HPI: Pt reports L index laceration from glass that occurred this morning Last Tdap 10/11/2006 Covid Screening: In the last 72 hours, has the patient had: New or unusual cough, shortness of breath, new nasal congestion, sore throat, fever, chills, body aches, or new loss of taste or smell without a reasonable alternative diagnosis*? (If yes, assign to [facility]) NO In the past 10 days, has the patient had a positive Covid test OR a confirmed close Covid exposure (<6ft for > 15mins in 24hr period)? (if yes, assign to [facility], regardless of vaccination status) NO *may be determined by RN or in discussion with available provider (TISSUE INSERTER's and CCA's can defer to Charge Nurse to complete triage when appropriate) PCP: Odilon Alejo * Cyn Euceda NP - 01/10/2023 1100 ESTAssociated Order(s): Laceration Repair Post-Procedure Diagnose(s): Laceration of left index finger without foreign body without damage to nail, initial encounter [facility] Chief Complaint(s): Laceration Assessment & Plan: 1. Laceration of left index finger without foreign body without damage to nail, initial encounter Otherwise healthy 42 yo male with laceration of left index finger with glass. Repaired with sutures. Avoid bending finger for next 24 hour Avoid getting wet for the next 12-24 hours Check wound daily for signs or symptoms of infection: increasing redness, swelling, pain, purulent drainage Suture removal in 10-14 days Kosta declines tetanus update. This clinician sustained finger stick injury associated with this visit. See subsequent encounter. An appropriate medical screening examination was performed. The patient was assessed prior to discharge and deemed stable for discharge home. HPI: Kosta presents to clinic for laceration of left index finger that occurred from glass. Occurred this morning. Last tetanus 2006 Declines tetanus Objective: Vitals and nursing notes reviewed Examination: BP 130/78 (BP Cuff Location: Right arm, BP Patient Position: Sitting, BP Cuff Sizes: Adult, large) Pulse 66 Temp 36.7 ??C (98 ??F) (Oral) SpO2 97% Physical Exam Vitals reviewed. Constitutional: Appearance: Normal appearance. He is not ill-appearing. Musculoskeletal: Left hand: Laceration (Dorsal DIPJ) present. Normal range of motion. Comments: Left hand with linear laceration over DIPJ, no tendon involvement, he has full ROM of this digit Skin: Capillary Refill: Capillary refill takes less than 2 seconds. Neurological: Mental Status: He is alert. Data reviewed with patient (current and past results): Laceration Repair Date/Time: 01/10/2023 12:48 Performed by: Cyn Euceda NP Authorized by: Cyn Euceda NP Consent: Verbal consent obtained. Written consent obtained. Consent given by: patient Patient understanding: patient states understanding of the procedure being performed Body area: upper extremity Location details: left index finger Laceration length: 1 cm Foreign bodies: no foreign bodies Tendon involvement: none Anesthesia: local infiltration Anesthesia: Local Anesthetic: lidocaine 1% with epinephrine Anesthetic total: 0.5 mL Irrigation solution: tap water Irrigation method: tap Amount of cleaning: standard Skin closure: 5-0 nylon Number of sutures: 3 Technique: simple Approximation: close Approximation difficulty: simple Dressing: Antibiotic ointment and bandage. Patient tolerance: patient tolerated the procedure well with no immediate complications This note may be in part documented using voice dictation software. Please forgive any errors or omissions that may result from use of dictation. documented in this encounter Plan of Treatment Not on file documented as of this encounter Procedures Procedure Name Priority Date/Time Associated Diagnosis Comments LACERATION REPAIR Routine 01/10/2023 12: 48 EST Laceration of left index finger without foreign body without damage to nail, initial encounter LACERATION REPAIR Routine 01/10/2023 12: 48 EST Laceration of left index finger without foreign body without damage to nail, initial encounter documented in this encounter Results * [place] SIMPLE REPAIR SCALP/NECK/AX/GENIT/TRUNK 2.5CM/<, HC - SIMPLE REPAIR SCALP/NECK/AX/GENIT/TRUNK2.5CM/< (01/10/2023 12:48 EST) Narrative [facility] POINT OF CARE - 01/10/2023 12:48 EST Cyn Euceda NP ? 01/14/2023 ??8:54 Laceration Repair Date/Time: 01/10/2023 12:48 Performed by: Cyn Euceda NP Authorized by: Cyn Euceda NP ??Consent: Verbal consent obtained. Written consent obtained. Consent given by: patient Patient understanding: patient states understanding of the procedure being performed Body area: upper extremity Location details: left index finger Laceration length: 1 cm Foreign bodies: no foreign bodies Tendon involvement: none Anesthesia: local infiltration Anesthesia: Local Anesthetic: lidocaine 1% with epinephrine Anesthetic total: 0.5 mL Irrigation solution: tap water Irrigation method: tap Amount of cleaning: standard Skin closure: 5-0 nylon Number of sutures: 3 Technique: simple Approximation: close Approximation difficulty: simple Dressing: Antibiotic ointment and bandage. Patient tolerance: patient tolerated the procedure well with no immediate complications Cyn Euceda NP PROCEDURE/MINOR SURGICAL ORDERA BLES Final Result [facility] POINT OF CARE documented in this encounter Visit Diagnoses Diagnosis Laceration of left index finger without foreign body without damage to nail, initial encounter- Primary documented in this encounter Discontinued Medications Medication Sig Discontinue Reason Start Date End Da te metoprolol (LOPRESSOR) 50 mg tablet Take 1 Tablet by mouth daily. 01/10/2023 documented as of this encounter Historical Medications * This list may reflect changes made after this encounter. metoprolol SUCCinate (TOPROL-XL) 100 mg tablet Take 1 Tablet by mouth daily. 11/04/2022 added in this encounter Care Teams Architectural Renderer Relationship Specialty Start Date End Date Odilon Alejo MD [address] [place] [address] PCP - General 12/31/13 documented as of this encounter
--- OUTSIDE RECORDS SUMMARY | 2024-02-11 20:38 | XMS_ITS | Encounter Summary ---
Author Organization [facility] Address [address] [place] [address] Care Team Providers Care Fusing Machine Feeder Name Role Phone Odilon Alejo MD Primary Care Provider [phone] Reason for Visit * (Routine/Next Available) - Receiving Office to Obtain Authorization Specialty Diagnoses / Procedures Referred By Contac t Referred To Contact Procedures XR OUTSIDE IMAGES CHEST Unknown, Provider, MD Referral ID Status Reason Start Date Expiration Date Visits Requested Visits Authorized [id number] Receiving Office to Obtain Authorization 12/19/2020 1 1 Encounter Details Date Type Department Care Team (Latest Contact Info) Description 12/15/2020 - 12/15/2020 0:04 EDT Hospital Encounter [facility] Secondary Reads [place] Discharge Disposition: Home [...] Time of Discharge GLUCOSAMINE/CHOND ROITIN SULF A (GLUCOSAMINE-TRAECY DROITIN ORAL) Take by mouth daily. Multivitamins [...] on filedocumented in this encounter Care Teams Fusing Machine Feeder Relationship Specialty Start Date End Date Odilon Alejo MD [address] [place] [address] PCP - General 12/31/13 documented as of this encounter
--- OUTSIDE RECORDS SUMMARY | 2024-02-11 20:38 | XMS_ITS | Encounter Summary ---
Author Organization [facility] Address [address] [place] [address] Care Team Providers Care Forklift Supervisor Name Role Phone Odilon Alejo MD Primary Care Provider [phone] Reason for Visit * Reason Onset Date Comments Coordination Of Care 01/10/2023 Encounter Details Date Type Department Care Team (Late st Contact Info) Description 01/10/2023 Telephone [facility] [address] [place] [address] Deirdre Gurrola RN Coordination Of Care Social History Tobacco Use Types Packs/Day [...] 04/07/2019 16:01 EST documented in this encounter Miscellaneous Notes * Telephone Encounter - Cyn Euceda NP - 01/10/2023 1529 EST Relayed negative/normal results to Kosta. No further steps needed. * Result Encounter Note - Domonique Elena PA-C - 01/10/2023 1432 EST Negative results * Telephone Encounter - Deirdre Gurrola RN - 01/10/2023 1234 EST Patient seen in [facility] clinic today for a laceration. During laceration repair, the provider sustained a fingerstick. The patient was notified that this occurred during his procedure, and he was agreeable to bloodwork for this prior to leaving the clinic. BW was ordered per our Exposure to Bodily Fluids protocol, venipuncture was completed, he tolerated this well and had no questions. documented in this encounter Plan of Treatment Not on file documented as of this encounter Procedures Procedure Name Priority Date/Time Associated Diagnosis Comments HEPATITIS C AB W REFLEX TO HCV RNA BY PCR STAT 01/10/2023 12:49 EST History of exposure to hazardous bodily fluids HEPATITIS B SURFACE ANTIGEN STAT 01/10/2023 12:49 EST History of exposure to hazardous bodily fluids HIV 1/2 ANTIGEN AND ANTIBODY, 4TH GENERATION STAT 01/10/2023 12:49 EST History of exposure to hazardous bodily fluids documented in this encounter Results * HEPATITIS B SURFACE ANTIGEN (01/10/2023 12:49 EST) Hep B Surface Ag Negative Negative 01/11/20 14:[address] [facility] Comment: Expected values: Negative The results of this assay can be falsely lowered due to the consumption of Biotin. Blood VENOUS BLOOD / Unknown Venipuncture / Unknown 01/10/2023 12:49 EST 01/10/2023 12:49 EST us Cyn Euceda INSIDE SALES CHEMISTRY & BLOOD GAS ORDERABLE S Final Result Performing Organization Address City/[facility] Co de Phone Number [facility] [address] [place] [address] * HEPATITIS C AB W REFLEX TO HCV RNA BY PCR (01/10/2023 12:49 EST) Hep C Antibody Negative Negative 01/10/2023 14:[address] [facility] Blood VENOUS BLOOD / Unknown Venipuncture / Unknown 01/10/2023 12:49 EST 01/10/2023 12:49 EST us Cyn Euceda INSIDE SALES CHEMISTRY & BLOOD GAS ORDERABLE S Final Result Performing Organization Address [facility] Co de Phone Number [facility] [address] [place] [address] * HIV 1/2 ANTIGEN AND ANTIBODY, 4TH GENERATION (01/10/2023 12:49 EST) HIV 1 and 2 Antibody/p24 Antigen, 4th Generation Negative Negative 01/10/2023 14:[address] [facility] Comment:If acute HIV-1 infec tion is suspected in a high risk patient, submit plasma specimen for HIV-1 RNA quantitation test. Blood VENOUS BLOOD / Unknown Venipuncture / Unknown 01/10/2023 12:49 EST 01/10/2023 12:49 EST us Cyn Euceda NP IMMUNOLOGY AND SEROLOGY ORDERAB LES Final Result Performing Organization Address City/[facility]/ZIP Co de Phone Number [facility] [address] [place] [address] documented in this encounter Visit Diagnoses Diagnosis History of exposure to hazardous bodily fluids- Primary documented in this encounter Care Teams Forklift Supervisor Relationship Specialty Start Date End Date Odilon Alejo MD [address] [place] [id number] PCP - General 12/31/13 documented as of this encounter
--- OUTSIDE RECORDS SUMMARY | 2024-02-11 20:39 | XMS_ITS | Encounter Summary ---
Author Organization [facility] [place] [address] Care Team Providers Care Hydraulic Jack Adjuster Name Role Phone Marylou Pineda Primary Care Provider [phone] Encounter Details Date Type Department Care Team (Late st Contact Info) Description 08/02/2021 6:20 PM EDT Telehealth [place] [address] Telehealth, Neurology None Social History Tobacco Use Types Packs/Day Years Used Date Smoking Tobacco: Never Smokeless Tobacco: Never Sex and Gender Information Value Date Recorded Sex Assigned at Not on file Gender Identity Not on file Sexual Orientation Not on file documented as of this encounter Plan of Treatment Not on file documented as of this encounter Visit Diagnoses Not on filedocumented in this encounter Care Teams Hydraulic Jack Adjuster Relationship Specialty Start Date End Date Marylou Pineda PA [address] [place] [address] PCP - General Family Medicine 08/12/19 documented as of this encounter
--- OUTSIDE RECORDS SUMMARY | 2024-02-11 20:39 | XMS_ITS | Encounter Summary ---
Author Organization [facility] Address [address] [place] [address] Care Team Providers Care Cake Puller Name Role Phone Odilon Alejo MD Primary Care Provider [phone] Encounter Details Date Type Department Care Team (Latest Contact Info) Description 05/26/2014 12:00 EDT - 05/26/2014 23:59 EDT Hospital Encounter [facility] [address] [address] Odilon Alejo MD [address] [place] [address] Discharge Disposition: Home or Self Care Social History Tobacco Use Types Packs/Day Years Used Date Smoking Tobacco: Every Day Cigarettes Alcohol Use Standard Drinks/Week Comments Yes 0 (1 standard drink = 0.6 oz pur e alcohol) Sex and Gender Information Value Date Recorded Sex Assigned at Not on file Legal Sex Male 18:03 EST Gender Identity Male 04/06/2019 12:26 EST Sexual Orientation Not on file documented as of this encounter Discharge Diagnoses Diagnosis 836.0 TEAR MED MENISC KNEE-CURRENT[ICD-9-CM] 719.50 JOINT STIFFNESS NEC-UNSPEC[ICD-9-CM] 719.7 DIFFICULTY IN WALKING[ICD-9-CM] documented in this encounter Medications at Time of Discharge GLUCOSAMINE/TRACEY DROITIN SULF A (GLUCOSAMINE-CHO NDROITIN ORAL) Take by mouth daily. docusate sodium (COLACE) 100 mg capsule Take 1 Cap by mouth daily 40 Cap 0 05/21/2014 0 naproxen (NAPROSYN) 500 mg tablet Take 1 Tab by mouth 2 times daily with breakfast and dinner 60 Tab 0 05/21/2014 0 oxyCODONE (ROXICODONE) 5 mg immediate release tablet Take 1-3 Tabs by mouth every 4 hours as needed for Pain Daily Max: 90 mg 40 Tab 0 05/21/2014 0 promethazine (PHENERGAN) 12.5 mg tablet Take 1 Tab by mouth every 6 hours as needed for Nausea 20 Tab 0 05/21/2014 0 documented as of this encounter Discharge Disposition Disposition Code Departure Means Destination Home or Self Long Term documented in this encounter Plan of Treatment Not on file documented as of this encounter Visit Diagnoses Not on filedocumented in this encounter Care Teams Cake Puller Relationship Specialty Start Date End Date Odilon Alejo MD [address] [place] [address] PCP - General 12/31/13 documented as of this encounter
--- OUTSIDE RECORDS SUMMARY | 2024-02-11 20:39 | XMS_ITS | Encounter Summary ---
[place] [address] Care Team Providers Care Surgical Scrub Technologist Name Role Phone Marylou Pineda Primary Care Provider [phone] Encounter Details Date Type Department Care Team (Latest Contact Info) Description 06/02/2020 12:50 PM EDT Laboratory Appointment Laboratory at [place] [id number] Myalgia; Sleep disorder; Vitamin D deficiency; Fatigue, unspecified type; Bone disorder Social History Tobacco Use Types Packs/Day Years Used Date Smoking Tobacco: Never Smokeless Tobacco: Never Sex and Gender Information Value Date Recorded Sex Assigned at Not on file Gender Identity Not on file Sexual Orientation Not on file documented as of this encounter Plan of Treatment Not on file documented as of this encounter Procedures Procedure Name Priority Date/Time Associated Diagnosis Comments HEMOGRAM Routine 06/02/2020 1:04 PM EDT Myalgia Sleep disorder Vitamin D deficiency Fatigue, unspecified type Bone disorder DIFFERENTIAL, AUTOMATED Routine 06/02/2020 1:04 PM EDT Myalgia Sleep disorder Vitamin D deficiency Fatigue, unspecified type Bone disorder HC HEPATITIS C ANTIBODY Routine 06/02/2020 1:04 PM EDT Myalgia Sleep disorder Vitamin D deficiency Fatigue, unspecified type Bone disorder HC IRON BINDING CAPACITY Routine 06/02/2020 1:04 PM EDT Myalgia Sleep disorder Vitamin D deficiency Fatigue, unspecified type Bone disorder HC SYPHILIS ANTIBODY Routine 06/02/2020 1:04 PM EDT Myalgia Sleep disorder Vitamin D deficiency Fatigue, unspecified type Bone disorder HC VENIPUNCTURE Routine 06/02/2020 1:04 PM EDT Myalgia Sleep disorder Vitamin D deficiency Fatigue, unspecified type Bone disorder HC ESR-SEDIMENTATION RATE, BLOOD Routine 06/02/2020 1:04 PM EDT Myalgia Sleep disorder Vitamin D deficiency Fatigue, unspecified type Bone disorder HC CBC,PLT & AUTO DIFF Routine 1:04 PM EDT Myalgia Sleep disorder Vitamin D deficiency Fatigue, unspecified type Bone disorder HC RHEUMATOID FACTOR Routine 06/02/2020 1:04 PM EDT Myalgia Sleep disorder Vitamin D deficiency Fatigue, unspecified type Bone disorder HC PCH ANATITRE (ANDPATTERN) Routine 06/02/2020 1:04 PM EDT Myalgia Sleep disorder Vitamin D deficiency Fatigue, unspecified type Bone disorder HC FREE T3 LEVEL Routine 06/02/2020 1:04 PM EDT Myalgia Sleep disorder Vitamin D deficiency Fatigue, unspecified type Bone disorder HC THYROID STIMULATING HORMONE, SERUM Routine 06/02/2020 1:04 PM EDT Myalgia Sleep disorder Vitamin D deficiency Fatigue, unspecified type Bone disorder HC FREE THYROXINE (T4) Routine 1:04 PM EDT Myalgia Sleep disorder Vitamin D deficiency Fatigue, unspecified type Bone disorder HC MAGNESIUM, SERUM Routine 06/02/2020 1 :04 PM EDT Myalgia Sleep disorder Vitamin D deficiency Fatigue, unspecified type Bone disorder HC FOLATE, SERUM Routine 06/02/2020 1:04 PM EDT Myalgia Sleep disorder Vitamin D deficiency Fatigue, unspecified type Bone disorder HC FERRITIN, SERUM Routine 06/02/2020 1: 04 PM EDT Myalgia Sleep disorder Vitamin D deficiency Fatigue, unspecified type Bone disorder HC VITAMIN B12 SERUM Routine 06/02/2020 1:04 PM EDT Myalgia Sleep disorder Vitamin D deficiency Fatigue, unspecified type Bone disorder HC CREATINE PHOSPHOKINASE, SERUM Routine 06/02/2020 1:04 PM EDT Myalgia Sleep disorder Vitamin D deficiency Fatigue, unspecified type Bone disorder COMPREHENSIVE METABOLIC PANEL Routine 06/02/2020 1:04 PM EDT Myalgia Sleep disorder Vitamin D deficiency Fatigue, unspecified type Bone disorder documented in this encounter Results * Differential, Automated (06/02/2020 1:04 PM EDT) Neutrophil % 61.7 % [facility] Neutrophil Absolute 3.85 1.70 - 6.10 x10(3)/mcL [facility] Lymph % 24.4 % [facility] Lymphocytes Abs 1.5 0.9 - 3.2 x10(3)/mcL [facility] Monocyte % 10.0 % [facility] Monocyte Abs 0.6 0.3 - 0.9 x10(3)/mcL [facility] Eos % 2.9 % [facility] Eosinophils Abs 0.2 0.0 - 0.4 x10(3)/mcL [facility] Basophil % 0.8 % [facility] Baso Absolute 0.0 0.0 - 0.1 x10(3)/mcL [facility] Immature Gran % 0.20 % [facility] Comment: Immature granulocytes(IG's)percentage and absolute count will include metamyelocytes, myelocytes, and promyelocytes. Blood smears from CBCs yielding IG's will be scanned manually for concordance. If this scan disagrees with the automated IG or if promyelocytes are noted, a manual differential will be performed. Immature Gran Absolute 0.01 0.00 - 0.04 x10(3)/mcL [facility] Blood specimen (specimen) 06/02/2020 1:04 PM EDT 06/02/2020 1:53 PM EDT Narrative Resulting Agency Comment Spec In Lab Paxton Yeung MD HEMATOLOGY ORDERABLE S Performing Organization Address [facility] Co de Phone Number [facility] [address] [place] [address] * Hemogram (06/02/2020 1:04 PM EDT) White Blood Cell 6.2 4.0 - 9.5 x10(3)/mcL [facility] Red Blood Cell 5.27 4.58 - 5.54 x10(6)/mcL [facility] Hemoglobin 16.2 13.7 - 16.5 gm/dL [facility] Hematocrit 47.2 40.5 - 48.5 % [facility] Mean Cell Volume 89.6 82.9 - 93.1 fL [facility] Mean Cell Hemoglobin 30.7 27.5 - 32.1 pg [facility] Mean Cell Hemoglobin Concentration 34.3 32.0 - 35.7 gm/dL [facility] Platelet 301 145 - 357 x10(3)/mcL [facility] RDW Standard Deviation 39.2 36.0 - 45.0 fL [facility] RDW coefficient of variation 12.0 11.4 - 13.8 % [facility] Mean Platelet Volume 9.4 7.6 - 12.9 fL [facility] Blood specimen (specimen) 06/02/2020 1:04 PM EDT 06/02/2020 1:53 PM EDT Narrative Resulting Agency Comment Spec In Lab Paxton Yeung MD HEMATOLOGY ORDERABLE S Performing Organization Address [facility] Co de Phone Number LAB[facility]ATORY [address] [place] [address] * T3, free (06/02/2020 1:04 PM EDT) Free T3 3.4 2.0 - 4.4 pg/mL [facility] Blood specimen (specimen) 06/02/2020 1:04 PM EDT 06/02/2020 1:53 PM EDT Narrative Resulting Agency Comment Spec In Lab Paxton Yeung MD CHEMISTRY ORDERABLES Performing Organization Address [facility] de Phone Number [facility] [address] [place] [address] * T4, free (06/02/2020 1:04 PM EDT) Free T4 1.09 0.93 - 1.70 ng/dL [facility] Blood specimen (specimen) 06/02/2020 1:04 PM EDT 06/02/2020 1:53 PM EDT Narrative Resulting Agency Comment Spec In Lab Paxton Yeung MD CHEMISTRY ORDERABLES Performing Organization Address [facility] Phone Number [facility] [address] [place] [address] * TSH (06/02/2020 1:04 PM EDT) [facility] Thyroid Stimulating Hormone 1.68 0.27 - 4.20 mcIU/mL [facility] Blood specimen (specimen) 06/02/2020 1:04 PM EDT 06/02/2020 1:53 PM EDT Narrative Resulting Agency Comment Spec In Lab Paxton Yeung MD CHEMISTRY ORDERABLES Performing Organization Address [facility] de Phone Number [facility] [address] [place] [address] * (ABNORMAL) Comprehensive metabolic panel (non-fasting) (06/02/2020 1:04 PM EDT) Glucose 97 65 - 199 mg/dL [facility] Comment:Diabetes: >=200 mg/d L plus symptoms Blood Urea Nitrogen 15 10 - 20 mg/dL [facility] Creatinine 0.79(L) 0.80 - 1.50 mg/dL [facility] Sodium 137 135 - 145 mmol/L [facility] Potassium 4.3 3.5 - 5.0 mmol/L [facility] Comment: Please note: ??Patients with WBC >100,000 may have falsely elevated Potassium levels. ??For accurate Potassium quantification in these patients send serum separator tube (gold top) for subsequent determinations. ??Contact the Clinical Chemistry Laboratory if there are any questions. Chloride 100 98 - 107 mmol/L [facility] Carbon Dioxide 25 22 - 31 mmol/L [facility] Anion Gap 12 5 - 15 mmol/L [facility] Calcium 9.6 8.5 - 10.5 mg/dL [facility] Protein, Total 7.9 6.1 - 8.0 gm/dL [facility] Albumin 4.5 3.2 - 5.2 gm/dL [facility] Aspartate Aminotransferase 23 0 - 39 unit/L [facility] Alanine Aminotransferase 30 0 - 55 unit/L [facility] Alkaline Phosphatase 74 40 - 130 unit/L [facility] Bilirubin, Total 0.4 0.2 - 1.3 mg/dL [facility] Est Glomerular Filtration Rate 113 >=60 mL/min/1. 73 m?? [facility] Comment: This patient? s estimated glomerular filtration rate (eGFR) is between 113 mL/min/1.73 m2 (patients with less muscle mass per kg body weight) and 131 mL/min/1.73 m2 (patients with more muscle mass per kg body weight) as determined by the CKD-EPI equation. Assessment of eGFR is not appropriate when creatinine concentrations are rapidly changing. For clinical decisions where creatinine clearance will affect therapy, a 24-hour urine creatinine clearance may be advised. Assignment of CKD stage 1 - 5 for patients with an eGFR near the transition point between stages may be based on clinical assessment of muscle mass and symptoms in addition to eGFR. Blood specimen (specimen) 06/02/2020 1:04 PM EDT 06/02/2020 1:53 PM EDT Narrative Resulting Agency Comment Spec In Lab Paxton Yeung MD CHEMISTRY ORDERABLES [facility] [address] [place] [address] * Hepatitis C Antibody (06/02/2020 1:04 PM EDT) Pathologist [facility] Hepatitis C Antibody Negative Negative [facility] Blood specimen (specimen) 06/02/2020 1:04 PM EDT 06/02/2020 4:15 PM EDT Narrative Resulting Agency Comment Spec In Lab Paxton Yeung MD CHEMISTRY ORDERABLES Performing Organization Address City/[facility]/ZIP Co de Phone Number [facility] [place] [address] * (ABNORMAL) Sedimentation rate (06/02/2020 1:04 PM EDT) [facility] Sedimentation Rate Automated 34(H) 2 - 28 mm/hr [facility] Blood specimen (specimen) 06/02/2020 1:04 PM EDT 06/02/2020 1:53 PM EDT Narrative Resulting Agency Comment Spec In Lab Paxton Yeung MD HEMATOLOGY ORDERABLE S Performing Organization Address [facility] Co de Phone Number [facility] [address] [place] [address] * Magnesium (06/02/2020 1:04 PM EDT) [facility] Magnesium 0.90 0.69 - 1.07 mmol/L [facility] Blood specimen (specimen) 06/02/2020 1:04 PM EDT 06/02/2020 1:53 PM EDT Narrative Resulting Agency Comment Spec In Lab Paxton Yeung MD CHEMISTRY ORDERABLES Performing Organization Address [facility] Co de Phone Number [facility] [address] [place] [address] * Iron and TIBC (06/02/2020 1:04 PM EDT) [facility] Iron 123 45 - 160 mcg/dL [facility] TIBC 325 250 - 450 mcg/dL [facility] Iron Saturation 38 20 - 50 % [facility] Blood specimen (specimen) 06/02/2020 1:04 PM EDT 06/02/2020 1:53 PM EDT Narrative Resulting Agency Comment Spec In Lab Paxton Yeung MD CHEMISTRY ORDERABLES Performing Organization Address [facility] de Phone Number [facility] [address] [place] [address] * Ferritin (06/02/2020 1:04 PM EDT) [facility] Ferritin 128 30 - 400 ng/mL [facility] Comment: Pediatric reference ranges not verified at [facility], interpret with caution. Reference ranges for females greater than 50 years of age approach values for men, i.e., 30-400 ng/mL. Blood specimen (specimen) 06/02/2020 1:04 PM EDT 06/02/2020 1:53 PM EDT Narrative Resulting Agency Comment Spec In Lab Paxton Yeung MD CHEMISTRY ORDERABLES Performing Organization Address [facility] de Phone Number [facility] [address] [place] [address] * ISIDRA ([facility]/CGP/APD/NLH) (06/02/2020 1:04 PM EDT) [facility] ISIDRA Ab Screen Test ?Result ? Flag ??Unit ??RefValue Antinuclear Ab, HEp-2 ? <1:80 (Negative) ? <1:80 (Negative) ??Substrate, S ? ADDITIONAL INFORMATION --------- ?Method: Immunofluorescence using HEp-2 cellular substrate. ?Test Performed by: ?[facility] ?[address] [place] [address] ?Transport Conductor: Guille Horton M.D. Ph.D.; CLIA# [id number] [facility] Blood specimen (specimen) 06/02/2020 1:04 PM EDT 06/02/2020 5:15 PM EDT Narrative Resulting Agency Comment Spec In Lab Paxton Yeung MD LAB SEND OUT ORDERAB LES Performing Organization Address [facility] de Phone Number [facility] [address] [place] [address] * Rheumatoid factor, quant (06/02/2020 1:04 PM EDT) Rheumatoid Factor <10 <=14 IU/mL [facility] Blood specimen (specimen) 06/02/2020 1:04 PM EDT 06/02/2020 4:15 PM EDT Narrative Resulting Agency Comment Spec In Lab Paxton Yeung MD CHEMISTRY ORDERABLES Performing Organization Address [facility] de Phone Number [facility] [place] [address] * Vitamin B12 (06/02/2020 1:04 PM EDT) Vitamin B12 602 232 - 1,245 pg/mL [facility] Blood specimen (specimen) 06/02/2020 1:04 PM EDT 06/02/2020 4:15 PM EDT Narrative Resulting Agency Comment Spec In Lab Paxton Yeung MD CHEMISTRY ORDERABLES Performing Organization Address [facility]/State/ZIP Co de Phone Number [facility] [place] [address] * Folate, serum (06/02/2020 1:04 PM EDT) [facility] Folate 9.0 4.8 - 24.2 ng/mL [facility] Blood specimen (specimen) 06/02/2020 1:04 PM EDT 06/02/2020 4:15 PM EDT Narrative Resulting Agency Comment Spec In Lab Paxton Yeung MD CHEMISTRY ORDERABLES Performing Organization Address City/[facility] Co de Phone Number [facility] [address] * CK (06/02/2020 1:04 PM EDT) [facility] Creatine Kinase 123 0 - 200 unit/L [facility] Blood specimen (specimen) 06/02/2020 1:04 PM EDT 06/02/2020 1:53 PM EDT Narrative Resulting Agency Comment Spec In Lab Paxton Yeung MD CHEMISTRY ORDERABLES Performing Organization Address [facility] Co de Phone Number [facility] [address] [place] [address] * Syphilis Screening Antibody with reflex RPR (06/02/2020 1:04 PM EDT) [facility] Syphilis IgG/IgM Negative Negative [facility] Blood specimen (specimen) 06/02/2020 1:04 PM EDT 06/02/2020 4:15 PM EDT Narrative Resulting Agency Comment Spec In Lab Paxton Yeung MD CHEMISTRY ORDERABLES Performing Organization Address City/[facility] Co de Phone Number [facility] [address] * (ABNORMAL) Vitamin D, 25-Hydroxy (06/02/2020 1:04 PM EDT) [facility] Vitamin D Total 25 OH 17(L) 21 - 100 ng/mL [facility] Vit D Interp Deficient [facility] Blood specimen (specimen) 06/02/2020 1:04 PM EDT 06/02/2020 4:15 PM EDT Narrative Resulting Agency Comment Spec In Lab Paxton Yeung MD CHEMISTRY ORDERABLES [facility] [place] [address] documented in this encounter Visit Diagnoses Diagnosis Myalgia Mylagia and myositis, unspecified Sleep disorder Sleep disturbance, unspecified Vitamin D deficiency Unspecified vitamin D deficiency Fatigue, unspecified type Bone disorder Disorder of bone and cartilage, unspecified documented in this encounter Care Teams Surgical Scrub Technologist Relationship Specialty Start Date End Date Marylou Pineda PA [address] [place] [id number] PCP - General Family Medicine 08/12/19 documented as of this encounter
--- OUTSIDE RECORDS SUMMARY | 2024-02-11 20:39 | XMS_ITS | Encounter Summary ---
Author Organization [facility] Address [address] [place] [address] Care Team Providers Care Vacuum Applicator Operator Name Role Phone Odilon Alejo MD Primary Care Provider [phone] Encounter Details Date Type Department Care Team (Late st Contact Info) Description 01/14/2014 Results Only Imaging [facility] Medicine Program [place] [address] [place] [address] Fred Arango Social History Tobacco Use Types Packs/Day Years [...] as of this encounter Plan of Treatment Pending Results Name Type Priority Associated Diagnoses Date /Time OUTSIDE IMAGES - PLAIN FILM MSK Imaging 01/14/2014 11:37 EST documented as of this encounter Visit Diagnoses Not on filedocumented in this encounter Care Teams Vacuum Applicator Operator Relationship Specialty Start Date End Date Odilon Alejo MD [address] [place] [address] PCP - General 12/31/13 documented as of this encounter
--- OUTSIDE RECORDS SUMMARY | 2024-02-11 20:39 | XMS_ITS | Encounter Summary ---
[place] [address] Care Team Providers Care Step Down Nurse Name Role Phone Marylou Pineda Primary Care Provider [phone] Encounter Details Date Type Department Care Team (Latest Contact Info) Description 07/10/2022 Travel Social History Tobacco Use Types Packs/Day [...] on filedocumented in this encounter Care Teams Step Down Nurse Relationship Specialty Start Date End Date Marylou Pineda PA [address] [place] [address] PCP - General Family Medicine 08/12/19 documented as of this encounter
--- OUTSIDE RECORDS SUMMARY | 2024-02-11 20:39 | XMS_ITS | Encounter Summary ---
Author Organization [facility] Address [address] [place] [address] Care Team Providers Care Lard Mixer Name Role Phone Odilon Alejo MD Primary Care Provider [phone] Reason for Referral * Cardiology (Routine/Next Available) - Specialty Report Received Specialty Diagnoses / Procedures Referred By Contac t Referred To Contact Cardiology Diagnoses Palpitations Procedures CARDIAC EVENT MONITOR Diego Carvajal MD Phone: tel: fax: [facility] Cardiology - [place] [address] [place] [address] Phone: tel: fax: Referral ID Status Reason Start Date Expiration Date V isits Requested Visits Authorized [id number] Specialty Report Received 04/07/2019 1 1 Reason for Visit * Reason Comments New Patient Visit palpitations, second opinion * Consult (Routine) - Closed Specialty Diagnoses / Procedures Referred By Contac t Referred To Contact Cardiology Diagnoses Palpitations Marylou Pienda PA Phone: tel: fax: [facility] Cardiology - [place] [address] [place] [address] Phone: tel: fax: Referral ID Status Reason Start Date Expiration Date Visits Re quested Visits Authorized [id number] Closed 1 1 Encounter Details Date Type Department Care Team (Late st Contact Info) Description 04/07/2019 16:00 EST Office Visit [facility] Cardiology - [place] [address] [place], [place] [id number] Nadia Diaz MD [address] [place] [id number] Palpitations (Primary Dx) Social History Tobacco Use Types [...] Sign Reading Time Taken Comments Blood Pressure 114/78 04/07/2019 1558 EST Pulse 90 04/07/2019 1558 EST Temperature - - Respiratory Rate - - Oxygen Saturation 94% 04/07/2019 1558 EST Inhaled Oxygen Concentration - - Weight 108.9 kg (240 lb) 04/07/2019 1558 EST Height 177.8 cm (5' 10) 04/07/2019 1558 EST Body Mass Index 34.44 04/07/2019 1558 EST documented in this encounter Functional Status * [...] this encounter Patient Instructions * Patient Instructions* Nadia Diaz MD - 04/07/2019 16:00 EST Images from the original note were not included. [facility] Patient Instructions Costochondritis: Care Instructions Your Care Instructions You have chest pain because the cartilage of your rib cage is inflamed. This problem is called costochondritis. This type of chest wall pain may last from days to weeks. It is not a heart problem. Sometimes costochondritis occurs with a cold or the flu, and other times the exact cause is not known. Follow-up care is a quiros part of your treatment and safety. Be sure to make and go to all appointments, and call your doctor if you are having problems. It's also a good idea to know your test resultsand keep a list of the medicines you take. How can you care for yourself at home? ?? Take medicines for pain and inflammation exactly as directed. ? If the doctor gave you a prescription medicine, take it as prescribed. ? If you are not taking a prescription pain medicine, ask your doctor if you can take an kkos-rqk-[id number] medicine. ? Do not take two or more pain medicines at the same time unless the doctor told you to. Many pain medicines have acetaminophen, which is Tylenol. Too much acetaminophen (Tylenol) can be harmful. ?? It may help to use a warm compress or heating pad (set on low) on your chest. You can also try alternating heat and ice. Put ice or a cold pack on the area for 10 to 20 minutes at a time. Put a thin cloth between the ice and your skin. ?? Avoid any activity that strains the chest area. As your pain gets better, you can slowly return to your normal activities. ?? Do not use tape, an elastic bandage, a rib belt, or anything else that restricts your chest wall motion. When should you call for help? Call 911 anytime you think you may need emergency care. For example, call if: ? You have new or different chest pain or pressure. This may occur with: ? Sweating. ? Shortness of breath. ? Nausea or vomiting. ? Pain that spreads from the chest to the neck, jaw, or one or both shoulders or arms. ? Dizziness or lightheadedness. ? A fast or uneven pulse. After calling 911, chew 1 adult-strength aspirin. Wait for an ambulance. Do not try to drive yourself. ? You have severe trouble breathing. ??Call your doctor now or seek immediate medical care if: ? You have a fever or cough. ? You have any trouble breathing. ? Your chest pain gets worse. ??Watch closely for changes in your health, and be sure to contact your doctor if: ? Your chest pain continues even though you are taking anti-inflammatory medicine. ? Your chest wall pain has not improved after 5 to 7 days. Where can you learn more? Go to https://www.Rocket Fuel.net/Adworxealth or log into your [employer] account at https://White [email or web address].Eko Devices.Overcart Enter K868 in the search box to learn more about Costochondritis: Care Instructions. Current as of: August 06, 2018 Content Version: 12.2 ?? [id number] [employer]. Care instructions adapted under license by [facility]. If you have questions about a medical condition or this instruction, always askyour healthcare professional. [employer] disclaims any warranty or liability for youruse of this information. documented in this encounter Progress Notes * Nadia Diaz MD - 04/07/2019 1600 EST Images from the original note were not included. Cardiology Consult Attending Physician: Odilon Alejo MD [facility] Date of Service: 04/07/19 Reason for Consult: atypical chest pain and palpitations HPI: Kosta Song is a 38 y.o. male patient with no known CAD who was referred to cardiology because of chest tightness and palpitations. Chest pain - - has been going on x1 year off and on but cannot pinpoint how often it happens, few times per yearmaybe - squeezing tight chest discomfort worse with changing positions and is tender to palpation, located to the left of his sternum and sometimes occurs on lateral left chest wall - non-radiating, no associated symptoms like SOB, nausea, diaphoresis - some days physical activity irritates it and sometimes not - won't go away with rest right away, will take hours or sometimes days-weeks to resolves - no pleuritic chest pain, not worse with lying flat, no recent infectious symptoms - no GERD symptoms with it, pain not associated with meals - recent normal echo without effusion and normal ETT, reports several visits to other facilities with negative troponin and d-dimer tests Used to smoke cigarettes 1-1.5ppd x 6 years, quit 8 years ago No family history of [place]/stroke No diabetes, no HTN, no HLD Drinks occasionally, 3-4 beers/week some weeks, none other weeks Most physically exertional things he does are at work- 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 has the sensation when he isexerting himself and sometimes when he is at rest he feels that his heart is pounding, can last forup to 1 year. 1x per week In addition to sensation of pounding HR x 1 hour at rest, he reports the sensation of his HR risingrapidly upon exerting himself and his ETT showed an exaggerated HR response to exercise. His exercise capacity is diminished for age. While he is up on his feet and lifts/pulls heavy equipment at work he does not do any sort of cardio workout but he plans to go to the gym. He has also gained about 25-lb in the last several years per chart review. We discussed increased physical activity and weight loss. 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 Pertinent positives are noted in HPI. All other systems were reviewed and are negative. Past Cardiac History: 09/2018 TTE: 09/2018 ETT: Impressions: ?? Normal study after maximal exercise without reproduction of symptoms. Summary: 1. Stress ECG conclusions: The stress ECG is negative. 2. Stress: The target heart rate was achieved. The heart rate response ? to stress is exaggerated. There is a normal resting blood pressure ? with an appropriate response to stress. The patient experienced no ? chest pain during stress. Exercise capacity is mildly diminished for ? age. Stress results: ?? Maximal heart rate during stress was 172bpm (95% of maximal predicted heart rate). The maximal predicted heart rate was 182bpm. The target heart rate was achieved. The heart rate response to stress is exaggerated. There is a normal resting blood pressure with an appropriate response to stress. The rate-pressure product for the peak heart rate and blood pressure was 76214qc Hg/min. ??The patient experienced no chest pain during stress. ?? The patient experienced moderate dyspnea in response to stress. Exercise capacity is mildly diminished for age. Stress ECG: ?? The stress ECG is negative. 09/2018 ECG - normal sinus rhythm with normal intervals, no pre-excitation No past medical history on file. Current Outpatient Medications: docusate sodium (COLACE) 100 mg capsule GLUCOSAMINE/CHONDROITIN SULF A (GLUCOSAMINE-CHONDROITIN ORAL) ibuprofen (MOTRIN) 200 mg tablet metoprolol (LOPRESSOR) 50 mg tablet Multivitamins with Minerals tablet naproxen (NAPROSYN) 500 mg tablet oxyCODONE (ROXICODONE) 5 mg immediate release tablet promethazine (PHENERGAN) 12.5 mg tablet No current facility-administered medications for this visit. Allergies as of 04/07/2019 - Reviewed 04/07/2019 Allergen Reaction Noted ??? Sulfa (sulfonamide antibiotics) 10/21/2009 Social History Socioeconomic History ??? Marital status: Single Spouse name: Not on file ??? Number of children: Not on file ??? Years of education: Not on file ??? Highest education level: Not on file Occupational History ??? Not on file Social Needs ??? Financial resource strain: Not on file ??? Food insecurity: Worry: Not on file Inability: Not on file ??? Transportation needs: Medical: Not on file Non-medical: Not on file Tobacco Use ??? Smoking status: Former Smoker Packs/day: 0.50 ??? Smokeless tobacco: Never Used Substance and Sexual Activity ??? Alcohol use: Yes ??? Drug use: Yes Types: Marijuana Comment: oxy's ??? Sexual activity: Yes Lifestyle ??? Physical activity: Days per week: Not on file Minutes per session: Not on file ??? Stress: Not on file Relationships ??? Social connections: Talks on phone: Not on file Gets together: Not on file Attends jain service: Not on file Active member of club or organization: Not on file Attends meetings of clubs or organizations: Not on file Relationship status: Not on file ??? Intimate partner violence: Fear of current or ex partner: Not on file Emotionally abused: Not on file Physically abused: Not on file Forced sexual activity: Not on file Other Topics Concern ??? Not on file Social History Narrative ??? Not on file No family history on file. Physical Exam Blood pressure 114/78, pulse 90, height 177.8 cm (70), weight (!) 108.9 kg (240 lb), SpO2 94 %. General: Middle aged male patient in [place] HEENT: NCAT, No scleral icterus Neck: Supple, No JVD CVS: S1, S2, RRR, no m/r/g Chest: Chest CTA b/l with good air movement Abdomen: Soft, NT, ND, BS+ Extremities: No LE edema, PPP 2+ Neuro: AAO x3, no focal deficits appreciated Skin: No rashes or lesions Labs CBC: No results for input(s): WBC, HGB, HCT, MCV, PLT in the last 72 hours. BMP: No results for input(s): CREATININE, BUN, NA, K, CL, CO2, CALCIUM, PHOS, MG in the last 72 hours. Coags: No results for input(s): PROTIME, INR, PTT in the last 72 hours. LFTs: No results for input(s): ALT, AST, GGT, ALKPHOS in the last 72 hours. Incorrect component name entered: TBILI FSBS: No results for input(s): GLUCOSEFINGE in the last 72 hours. Cardiac Biomarkers: No results for input(s): CK, MB, CKMBINDEX, TROPONINI in the last 72 hours. Hemoglobin A1C: No results found for: HGBA1C 09/2018 ECG - normal sinus rhythm with normal intervals, no pre-excitation A/P: Kosta Song is a 38 y.o. male patient with no known CAD who was referred to cardiology because of atypical chest pain and palpitations. He has minimal risk factors for premature coronary disease as in HPI and his chest discomfort is very atypical for cardiac chest pain. He reports extensive negative workups in the past including negative troponin tests after chest pain lasting hours-days, normal d-dimer, and he recently had an echo showing a structurally normal heart, and a normal ETT. His history of the pain is most consistent with costochrondritis or a musculoskeletal cause given that it is reproducible to palpation of his chest wall and lasts for weeks and is likely related to the physical work he does related to his job. Provided reassurance that with his extensive prior testing and based on his history and exam we have ruled out dangerous causes for his chest pain. Recommended that he avoid activities at work that trigger or exacerbate the pain and that treatment is supportive (rest, ice/heat, Tylenol, and anti-inf lammatories). In terms of his palpitations, will obtain an event monitor/Ziopatch to determine what they are - hereports having an episode on average once per week so should catch them on 2 week monitor. # Atypical chest pain. Most consistent with costochondritis as above - supportive care - rest, ice/heat, Tylenol, and anti-inflammatories # Palpitations. - CARDIAC EVENT MONITOR; Future - we will call him with results # Primary prevention. - discussed weight loss and increased cardiovascular exercise - reports recent normal LDL with PCP, goal is <100 Thank you for involving us in the care of this patient. Please call us with questions. Patient seen and examined with Dr Wei Diaz, PGY-6 Clam Grower Pager #[phone] Follow up depending on results of holter monitor documented in this encounter Plan of Treatment Not on file documented as of this encounter Results * CARDIAC EVENT MONITOR (05/25/2019 7:33 EDT) Anatomical Region Laterality Modality Other Narrative 05/25/2019 15:49 EDT This is a 30-day ambulatory ECG monitoring report. ??The total duration of monitoring was 7 days. ?? The presenting rhythm is sinus rhythm. There is no atrial fibrillation or flutter recorded. There is no SVT noted. There is no significant ventricular ectopy. There are rare episodes of sinus rhythm with PVCs. us Diego Carvajal MD CARDIAC SERVICES ORDERAB LES Final Result documented in this encounter Visit Diagnoses Diagnosis Palpitations- Primary Palpitations documented in this encounter Discontinued Medications Medication Sig Discontinue Reason Start Date End Da te ibuprofen (MOTRIN) 200 mg tablet Take 200 mg by mouth as needed for Pain Therapy completed 04/07/2019 naproxen (NAPROSYN) 500 mg tablet Take 1 Tab by mouth 2 times daily with breakfast and dinner Therapy completed 05/21/2014 04/07/2019 oxyCODONE (ROXICODONE) 5 mg immediate release tablet Take 1-3 Tabs by mouth every 4 hours as needed for Pain Daily Max: 90 mg Therapy completed 05/21/2014 04/07/2019 promethazine (PHENERGAN) 12.5 mg tablet Take 1 Tab by mouth every 6 hours as needed for Nausea Therapy completed 05/21/2014 04/07/2019 docusate sodium (COLACE) 100 mg capsule Take 1 Cap by mouth daily Therapy completed 05/21/2014 04/07/2019 documented as of this encounter Historical Medications * This list may reflect changes made after this encounter. metoprolol (LOPRESSOR) 50 mg tablet Take 1 Tablet by mouth daily. 01/10/2023 added in this encounter Care Teams Lard Mixer Relationship Specialty Start Date End Date Odilon Alejo MD [address] [place] [address] PCP - General 12/31/13 documented as of this encounter
--- OUTSIDE RECORDS SUMMARY | 2024-02-11 20:39 | XMS_ITS | Encounter Summary ---
Author Organization [facility] Address [address] [place] [id number] Care Team Providers Care Link Wire Fabric Machine Tender Name Role Phone Odilon Alejo MD Primary Care Provider [phone] Encounter Details Date Type Department Care Team (Late st Contact Info) Description 09/29/2018 Results Only Imaging [facility] [phone] Odilon Alejo MD [address] [place] [id number] Social History Tobacco Use Types Packs/Day Years [...] Associated Diagnoses Date /Time OUTSIDE IMAGES - US BODY Imaging 09/29/2018 18:46 EDT documented as of this encounter Procedures Procedure Name Priority Date/Time Associated Diagnosis Comments EXERCISE TOLERANCE TEST 09/29/2018 14:00 EDT documented in this encounter Results * EXERCISE TOLERANCE TEST (09/29/2018 14:00 EDT) Anatomical Region Laterality Modality Other 09/29/2018 14:0 0 EDT Narrative 09/30/2018 11:34 EDT *[facility]* [address] [place] [address] *Interpreting Group:* *[facility]* [address] [place] [address] Stress Electrocardiography Mahendra protocol Date of study: ??09/29/2018 *PATIENT PRESENTATION* Height: ? 177.8cm (70in) Blood Pressure: Weight: ? 100kg (220lb) BSA: ?2.25m^2 Ordering physician: Odilon Alejo MD Impressions: ?? Normal study after maximal exercise without reproduction of symptoms. Summary: 1. Stress ECG conclusions: The stress ECG is negative. 2. Stress: The target heart rate was achieved. The heart rate response ?? to stress is exaggerated. There is a normal resting blood pressure ?? with an appropriate response to stress. The patient experienced no ?? chest pain during stress. Exercise capacity is mildly diminished for ?? age. CAD likelihood: ??Pre test likelihood of CAD: 3%. Post test likelihood of CAD: 1%. Indication: ?? Atrial flutter. History: ??38 y o male with no known CAD. Pt presents for evaluation due to c/o chest tightness that pt correlates to increased HR and states he was just started on Toporol and feels it has improved. Pt states exertion can make it worse, does not happen everytime he exerts himself. Discomfort lasts for a few hours to up to a day. Pt denies any discomfort at present. ??Patient's presenting symptoms: nonanginal chest pain. ??Medications: ??Aspirin. Beta blockers. Protocol: ??Mahendra protocol. Baseline ECG: ??Normal ECG. Stress protocol: + +---+ + + + + Stage ? HR BP (mmHg) ?? ST/T ? Rhythm ? Symptoms ? + +---+ + + + + Baseline supine 96 138/92 ? Normal ST-T Sinus ? None ? (107) ? rhythm, no ? ventricular ? ectopy ? + +---+ + + + + Baseline ? 117 140/96 ? standing ? (111) ? + +---+ + + + + Stage I; ? 136 160/92 ? 1.7mph, ? (115) ? 10degrees; 3 ? min ? + +---+ + + + + Stage II; ? 158 172/84 ? 2.5mph, ? (113) ? 12degrees; 3 ? min ? + +---+ + + + + Stage III; ? 172 204/80 ? Same as ? Sinus tach, Moderate ? 3.4mph, ? (121) ? above ? no ? dyspnea, ? 14degrees; 3 ? ventricular moderate ? min ? ectopy ? fatigue ? + +---+ + + + + Peak stress ? 172 ? + +---+ + + + + Immediate post 170 ? stress ? + +---+ + + + + Recovery; 1 min 169 158/84 ? (109) ? + +---+ + + + + Recovery; 3 min 127 150/86 ? Resolved ? (107) ? + +---+ + + + + Recovery; 6 min 126 134/92 ? (106) ? + +---+ + + + + Recovery; 9 min 125 ? Same as ? Same as ? Pt reports he ? above ? above ? feels he is ? back to ? baseline ? + +---+ + + + + * Stress results: ?? Maximal heart rate during stress was 172bpm (95% of maximal predicted heart rate). The maximal predicted heart rate was 182bpm. The target heart rate was achieved. The heart rate response to stress is exaggerated. There is a normal resting blood pressure with an appropriate response to stress. The rate-pressure product for the peak heart rate and blood pressure was 70345sf Hg/min. ??The patient experienced no chest pain during stress. ?? The patient experienced moderate dyspnea in response to stress. Exercise capacity is mildly diminished for age. Stress ECG: ?? The stress ECG is negative. Study data: ??Dr. Alfa Velasco supervised and was readily available during the procedure. ??Study status: ??Routine. ??Consent: ??The risks, benefits, and alternatives to the procedure were explained to the patient and informed consent was obtained. ??Procedure: ??The patient was identified by two identifiers. Initial setup. A baseline ECG was recorded. ECG tracings were obtained using the X-scribe 2 machine. Surface ECG leads and manual cuff blood pressure measurements were monitored. Heart sounds: Normal. Lung sounds: Normal. Treadmill exercise testing was performed using the Mahendra protocol. The patient exercised for 9 min, to protocol stage 3, to a maximal work rate of 10.2mets. Exercise was terminated due to moderate dyspnea and moderate fatigue. Study completion: ??The patient tolerated the procedure well and was discharged from the lab. ??Discharge: ??The patient left the laboratory in stable condition. ? Birthdate: ??Patient birthdate: 1980. ??Sex: Gender: male. ??Study date: ??Study date: 09/29/2018. Study time: 02:00 PM. Signature Documentation: ?? The Stress ECG portion of this study was interpreted by Dr. Wei Christiansen. Electronically signed by Wei Christiansen MD 09/30/2018 11:34 Procedure Note Wei Christiansen MD, MD - 09/30/2018 *[facility]* [address] [place] [address] *Interpreting Group:* *[facility]* [address] [place] [address] Stress Electrocardiography Mahendra protocol Date of study: 09/29/2018 *PATIENT PRESENTATION* Height: 177.8cm (70in) Blood Pressure: Weight: 100kg (220lb) BSA: 2.25m^2 Ordering physician: Odilon Alejo MD Impressions: Normal study after maximal exercise without reproduction of symptoms. Summary: 1. Stress ECG conclusions: The stress ECG is negative. 2. Stress: The target heart rate was achieved. The heart rate response to stress is exaggerated. There is a normal resting blood pressure with an appropriate response to stress. The patient experienced no chest pain during stress. Exercise capacity is mildly diminished for age. CAD likelihood: Pre test likelihood of CAD: 3%. Post test likelihood of CAD: 1%. Indication: Atrial flutter. History: 38 y o male with no known CAD. Pt presents for evaluation due to c/o chest tightness that pt correlates to increased HR and states he was just started on Toporol and feels it has improved. Pt states exertion can make it worse, does not happen everytime he exerts himself. Discomfort lasts for a few hours to up to a day. Pt denies any discomfort at present. Patient's presenting symptoms: nonanginal chest pain. Medications: Aspirin. Beta blockers. Protocol: Mahendra protocol. Baseline ECG: Normal ECG. Stress protocol: + +---+ + + + + Stage HR BP (mmHg) ST/T Rhythm Symptoms + +---+ + + + + Baseline supine 96 138/[address]-T Sinus None (107) rhythm, no ventricular ectopy + +---+ + + + + Baseline 117 140/96 standing (111) + +---+ + + + + Stage I; 136 160/92 1.7mph, (115) 10degrees; 3 min + +---+ + + + + Stage II; 158 172/84 2.5mph, (113) 12degrees; 3 min + +---+ + + + + Stage III; 172 204/80 Same as Sinus tach, Moderate 3.4mph, (121) above no dyspnea, 14degrees; 3 ventricular moderate min ectopy fatigue + +---+ + + + + Peak stress 172 + +---+ + + + + Immediate post 170 stress + +---+ + + + + Recovery; 1 min 169 158/84 (109) + +---+ + + + + Recovery; 3 min 127 150/86 Resolved (107) + +---+ + + + + Recovery; 6 min 126 134/92 (106) + +---+ + + + + Recovery; 9 min 125 Same as Same as Pt reports he above above feels he is back to baseline + +---+ + + + + * Stress results: Maximal heart rate during stress was 172bpm (95% of maximal predicted heart rate). The maximal predicted heart rate was 182bpm. The target heart rate was achieved. The heart rate response to stress is exaggerated. There is a normal resting blood pressure with an appropriate response to stress. The rate-pressure product for the peak heart rate and blood pressure was 32728wf Hg/min. The patient experienced no chest pain during stress. The patient experienced moderate dyspnea in response to stress. Exercise capacity is mildly diminished for age. Stress ECG: The stress ECG is negative. Study data: Dr. Alfa Velasco supervised and was readily available during the procedure. Study status: Routine. Consent: The risks, benefits, and alternatives to the procedure were explained to the patient and informed consent was obtained. Procedure: The patient was identified by two identifiers. Initial setup. A baseline ECG was recorded. ECG tracings were obtained using the X-scribe 2 machine. Surface ECG leads and manual cuff blood pressure measurements were monitored. Heart sounds: Normal. Lung sounds: Normal. Treadmill exercise testing was performed using the Mahendra protocol. The patient exercised for 9 min, to protocol stage 3, to a maximal work rate of 10.2mets. Exercise was terminated due to moderate dyspnea and moderate fatigue. Study completion: The patient tolerated the procedure well and was discharged from the lab. Discharge: The patient left the laboratory in stable condition. Birthdate: Patient birthdate: 1980. Sex: Gender: male. Study date: Study date: 09/29/2018. Study time: 02:00 PM. Signature Documentation: The Stress ECG portion of this study was interpreted by Dr. Wei Christiansen. Electronically signed by Wei Christiansen MD 09/30/2018 11:34 Odilon Alejo MD CARDIAC SERVICES ORDERABLES Final Result documented in this encounter Visit Diagnoses Not on filedocumented in this encounter Care Teams Link Wire Fabric Machine Tender Relationship Specialty Start Date End Date Odilon Alejo MD [address] [place] [address] PCP - General 12/31/13 documented as of this encounter
--- OUTSIDE RECORDS SUMMARY | 2024-02-11 20:39 | XMS_ITS | Encounter Summary ---
Author Organization [facility] Address [address] [place] [address] Care Team Providers Care Appliance Line Assembler Name Role Phone Odilon Alejo MD Primary Care Provider + [phone] Reason for Visit * Reason Comments Other Preop call Encounter Details Date Type Department Care Team (Late st Contact Info) Description 05/20/2014 Telephone [facility] Sports Medicine Program [place] [address] Cher Coleman, JACK TAMP OPERATOR [address] [place] [address] Other (Preop call) Social History Tobacco Use Types Packs/Day Years [...] on file documented as of this encounter Miscellaneous Notes * Telephone Encounter - Cher Coleman - 05/20/2014 1251 EDT Patient was contacted w/ preop information on cell phone. Hewas told to arrive @1315 on [facility]21/14 [facility], nothing to eat after midnight but can have water until 1000, to shower the night before and morning of surgery with an antibacterial soap, to wear appropriate attire (baggy, loose fitting, etc), to leave all valuables at home and to bring crutches. Patient was told to follow instructions as noted on their sheet What to expect as an outpatient patient. Post op visit is 4/13@1130. Patient verbalized understanding. documented in this encounter Plan of Treatment Not on file documented as of this encounter Visit Diagnoses Not on filedocumented in this encounter Care Teams Appliance Line Assembler Relationship Specialty Start Date End Date Odilon Alejo MD [address] [place] [address] PCP - General 12/31/13 documented as of this encounter
--- OUTSIDE RECORDS SUMMARY | 2024-02-11 20:39 | XMS_ITS | Encounter Summary ---
Author Organization [facility] Address [address] [place] [address] Care Team Providers Care Hacksaw Inspector Name Role Phone Odilon Alejo MD Primary Care Provider [phone] Reason for Referral * Radiology Services (Routine) - Closed Specialty Diagnoses / Procedures Referred By Contzach gore Referred To Contact Diagnoses Right knee pain Procedures KNEE 4 OR MORE VIEWS Hoang Tariq MD Phone: tel: fax: Referral ID Status Reason Start Date Expiration Date Visits Re quested Visits Authorized [id number] Closed 04/20/2014 1 1 Encounter Details Date Type Department Care Team (Late st Contact Info) Description 04/20/2014 Orders Only [facility] Sports Medicine Program - [address] [address] Hoang Tariq MD [address] [place] [phone] Right knee pain (Primary Dx) Social History Tobacco Use Types [...] Procedure Name Priority Date/Time Associated Diagnosis Comments KNEE 4 OR MORE VIEWS Routine 04/20/2014 10:17 EDT Right knee pain documented in this encounter Results * KNEE 4 OR MORE VIEWS (04/20/2014 10:17 EDT) Anatomical Region Laterality Modality Other 04/20/2014 10:1 7 EDT 04/20/2014 11:01 EDT Narrative 04/20/2014 11:01 EDT KNEE 4 OR MORE VIEWS ??04/20/2014 10:17 AM Signs and Symptoms/Comments: ?? 719.46-Pain in joint, lower [id number]; right knee pain . Findings: A small joint effusion is present. There are minimal degenerative changes in the patellofemoral compartment. Procedure Note Yolanda Patterson MD - 04/20/2014 KNEE 4 OR MORE VIEWS 04/20/2014 10:17 AM Signs and Symptoms/Comments: 719.46-Pain in joint, lower [id number]; right knee pain . Findings: A small joint effusion is present. There are minimal degenerative changes in the patellofemoral compartment. Hoang Tariq MD IMG DIAGNOSTIC IMAGING ORDERABLES Final Result documented in this encounter Visit Diagnoses Diagnosis Right knee pain- Primary Pain in joint, lower leg documented in this encounter Care Teams Hacksaw Inspector Relationship Specialty Start Date End Date Odilon Alejo MD [address] [place] [id number] PCP - General 12/31/13 documented as of this encounter
--- OUTSIDE RECORDS SUMMARY | 2024-02-11 20:39 | XMS_ITS | Encounter Summary ---
Author Organization [facility] Address [address] [place] [address] Care Team Providers Care Renal Nurse Name Role Phone Odilon Alejo MD Primary Care Provider [phone] Reason for Referral * PT/OT/ST (Routine) - Closed Specialty Diagnoses / Procedures Referred By Contac t Referred To Contact Diagnoses Knee pain, chronic Fred Arango Referral ID Status Reason Start Date Expiration Date V isits Requested Visits Authorized [id number] Closed Specialty Services Required 02/26/2014 1 1 Question Answer Reason for Request: bi lateral knee pain, pfps ? meniscus degeneration Comments pfps modalties, quad strengthenign Reason for Visit * Reason Comments Knee Pain left Encounter Details Date Type Department Care Team (Late st Contact Info) Description 02/26/2014 8:30 EST Office Visit [facility] Sports Medicine Program - [address] [place], [place] [id number] Fred Arango Knee pain, chronic (Primary Dx) Social History Tobacco Use Types [...] Sign Reading Time Taken Comments Blood Pressure - - Pulse - - Temperature - - Respiratory Rate - - Oxygen Saturation - - Inhaled Oxygen Concentration - - Weight 106.6 kg (235 lb) 02/26/2014 0833 EST Height 177.8 cm (5' 10) 02/26/2014 0833 EST Body Mass Index 33.72 02/26/2014 0833 EST documented in this encounter Progress Notes * Fred Arango PA-C - 02/26/2014 0901 EST OFFICE VISIT: Bilateral knee pain. SUBJECTIVE: The patient states he has had ongoing problems with his knees since he was a child. 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 He notes both knees tend to bother him, although his right knee will tend to swell more when it is aggravated. He indicates his pain is mostly medial in location. He notes popping within the knee, but denies any locking or giving way. See intake sheet for remaining review of systems,past medical history. He notes allergies to SULFA medication. OBJECTIVE: The patient is alert, oriented x3 in no obvious distress. Eyes equal and reactive to light. No breathing difficulties. He is 5 feet 10 inches, 235 pounds. On exam, he has a very large scaron the left knee extending from proximal tibia up to mid-thigh, more laterally. This was from an injury when he fell through some rotted stairs as a child. Otherwise, there is no current or active effusion. His range of motion from 0 to 130 degrees flexion with some pain mostly on the left medial joint space with forced flexion. The knees are stable to valgus varus stressors at 0 and 30 degrees flexion, but again more pain medially on the left knee to valgus stress. There is some slight crepitus and catching on the patella, which are hypomobile, really no pain along the medial retinaculum, but there is tenderness within the medial joint space and there is positive exacerbation to Anuj'stesting, left more so than right. He is able to do straight leg raises. Pulses and sensation are all intact. He is stable to anterior drawer and Janiya's. X-rays are reviewed of the left knee, which is all we have available today that shows no obvious bony abnormalities. ASSESSMENT: Bilateral chronic knee pain. PLAN: At this point, I do want to get him into a course of physical therapy, but he states he has done this in the past for more than 6 weeks and notes that this has only tended to aggravate his symptoms and so I think it would be best to obtain an MRI of both his knees to rule out any meniscal pathology and I can follow up with him after these imaging studies. The patient seen at a time Dr Capellan is in clinic and available for consultation. documented in this encounter Plan of Treatment Scheduled Referrals Name Type Priority Associated Diagnoses Orde r Schedule AMB CONS/FOLLOW UP PHYSICAL THERAPY Outpatient Referral Routine Knee Pain, Chronic Ordered: 02/26/2014 documented as of this encounter Procedures Procedure Name Priority Date/Time Associated Diagnosis Comments MR EXTREMITY KNEE WO CONTRAST 03/16/2014 22:39 EST documented in this encounter Results * MR EXTREMITY KNEE WO CONTRAST (03/16/2014 22:39 EST) Anatomical Region Laterality Modality Other 03/16/2014 22:3 9 EST 03/17/2014 15:40 EST Narrative 03/17/2014 15:40 EST MR EXTREMITY RIGHT KNEE WO CONTRAST, MR EXTREMITY LEFT KNEE WO CONTRAST ??03/16/2014 10:05 PM Signs and Symptoms/Comments: ??719.46-Pain in joint, lower upb-TIT-4-CM; bilateral knee pain. Rule out meniscus tear/degeneration. Comparison:Left knee radiographs, outside images, 01/01/2014. Technique: Routine multiplanar sagittal, coronal, axial conventional MR images with long and short TR sequences of the right and left knees were obtained on the open MRI system, without contrast administration. Findings: Right knee: The posterior horn of the medial meniscus demonstrates a horizontal undersurface tear with associated small para-meniscal cyst formation. The medial femorotibial compartment shows mild chondral wear along its weightbearing surfaces. No lateral meniscus tear is visualized. The anterior and posterior cruciate ligaments are intact. The medial and posteromedial supporting structures of the knee are intact including the MCL complex. The lateral and posterolateral supporting structures of the knee are intact including the LCL complex. The patellar tendon and distal quadriceps tendon are intact. Small enthesophyte formation is seen arising along the anterosuperior margin of the patella at the distal quadriceps insertion. The lateral femorotibial compartment and patellofemoral compartment show minimal sites of chondral surface fraying. Also with a small partial-thickness chondral defect on the posterior aspect of the lateral tibial plateau (coronal 24, sagittal 22). No significant bone marrow signal abnormalities seen. There is a small right knee joint effusion, with findings of mild synovitis. There is a filling defect in the lateral recess at the level of the patella that is suspicious for a chondral body measuring approximately 6 x 4 x 2 mm (sagittal 25, axial 20). Impression right knee: 1. Horizontal undersurface tear of the medial meniscus posterior horn, with associated small para meniscal cyst formation. 2. Medial femorotibial compartment weight-bearing surfaces show mild articular cartilage thinning. Small partial thickness chondral defect on the posterior aspect of the lateral tibial plateau. Additional minimal sites of chondral surface fraying in the lateral femorotibial and patellofemoral compartments. 3. A 6 x 4 x 2 mm intra-articular filling defect in the lateral recess at the level of the patella, is suspicious for a chondral body. 4. Small right knee joint effusion. Findings: Left knee: The medial and lateral menisci are intact as are their anterior and posterior root ligaments. Medial meniscus shows finding most compatible with intrameniscal myxoid degeneration mainly manifesting as linear region of increased intrameniscal signal, with no unequivocal surfacing component to confirm meniscal tear. The anterior and posterior cruciate ligaments are intact. The medial and posteromedial supporting structures of the knee are intact including the MCL complex. The lateral and posterolateral supporting structures of the knee are intact including the LCL complex. The extensor mechanism is intact. The medial femorotibial compartment demonstrates mild articular cartilage thinning along its weightbearing surfaces. The lateral femorotibial compartment and patellofemoral compartment show minimal sites of chondral surface fraying. The quadriceps tendon demonstrates mild tendinosis as its distal insertion. Small enthesophyte formation is seen arising from the anterosuperior margin of the patella at the distal quadriceps tendon insertion. The patellar tendon is intact. No significant bone marrow signal abnormalities seen. No joint effusion is identified. Impression left knee: 1. No meniscal tear or ligamentous disruption identified in the left knee. 2. Medial femorotibial compartment weight-bearing surfaces show mild articular cartilage thinning. Minimal sites of chondral surface fraying are evident in the lateral femorotibial and patellofemoral compartments. 3. Quadriceps tendon shows mild tendinosis at its distal is insertion, with small enthesophyte formation at the anterosuperior margin of the patella. I have personally reviewed the images and the above interpretation and agree with the findings. Procedure Note 03/17/2014 MR EXTREMITY RIGHT KNEE WO CONTRAST, MR EXTREMITY LEFT KNEE WO CONTRAST 03/16/2014 10:05 PM Signs and Symptoms/Comments: 719.46-Pain in joint, lower uby-XZY-7-CM; bilateral knee pain. Rule out meniscus tear/degeneration. Comparison:Left knee radiographs, outside images, 01/01/2014. Technique: Routine multiplanar sagittal, coronal, axial conventional MR images with long and short TR sequences of the right and left knees were obtained on the open MRI system, without contrast administration. Findings: Right knee: The posterior horn of the medial meniscus demonstrates a horizontal undersurface tear with associated small para-meniscal cyst formation. The medial femorotibial compartment shows mild chondral wear along its weightbearing surfaces. No lateral meniscus tear is visualized. The anterior and posterior cruciate ligaments are intact. The medial and posteromedial supporting structures of the knee are intact including the MCL complex. The lateral and posterolateral supporting structures of the knee are intact including the LCL complex. The patellar tendon and distal quadriceps tendon are intact. Small enthesophyte formation is seen arising along the anterosuperior margin of the patella at the distal quadriceps insertion. The lateral femorotibial compartment and patellofemoral compartment show minimal sites of chondral surface fraying. Also with a small partial-thickness chondral defect on the posterior aspect of the lateral tibial plateau (coronal 24, sagittal 22). No significant bone marrow signal abnormalities seen. There is a small right knee joint effusion, with findings of mild synovitis. There is a filling defect in the lateral recess at the level of the patella that is suspicious for a chondral body measuring approximately 6 x 4 x 2 mm (sagittal 25, axial 20). Impression right knee: 1. Horizontal undersurface tear of the medial meniscus posterior horn, with associated small para meniscal cyst formation. 2. Medial femorotibial compartment weight-bearing surfaces show mild articular cartilage thinning. Small partial thickness chondral defect on the posterior aspect of the lateral tibial plateau. Additional minimal sites of chondral surface fraying in the lateral femorotibial and patellofemoral compartments. 3. A 6 x 4 x 2 mm intra-articular filling defect in the lateral recess at the level of the patella, is suspicious for a chondral body. 4. Small right knee joint effusion. Findings: Left knee: The medial and lateral menisci are intact as are their anterior and posterior root ligaments. Medial meniscus shows finding most compatible with intrameniscal myxoid degeneration mainly manifesting as linear region of increased intrameniscal signal, with no unequivocal surfacing component to confirm meniscal tear. The anterior and posterior cruciate ligaments are intact. The medial and posteromedial supporting structures of the knee are intact including the MCL complex. The lateral and posterolateral supporting structures of the knee are intact including the LCL complex. The extensor mechanism is intact. The medial femorotibial compartment demonstrates mild articular cartilage thinning along its weightbearing surfaces. The lateral femorotibial compartment and patellofemoral compartment show minimal sites of chondral surface fraying. The quadriceps tendon demonstrates mild tendinosis as its distal insertion. Small enthesophyte formation is seen arising from the anterosuperior margin of the patella at the distal quadriceps tendon insertion. The patellar tendon is intact. No significant bone marrow signal abnormalities seen. No joint effusion is identified. Impression left knee: 1. No meniscal tear or ligamentous disruption identified in the left knee. 2. Medial femorotibial compartment weight-bearing surfaces show mild articular cartilage thinning. Minimal sites of chondral surface fraying are evident in the lateral femorotibial and patellofemoral compartments. 3. Quadriceps tendon shows mild tendinosis at its distal is insertion, with small enthesophyte formation at the anterosuperior margin of the patella. I have personally reviewed the images and the above interpretation and agree with the findings. Fred Arango [facility] [place] Final Result documented in this encounter Visit Diagnoses Diagnosis Knee pain, chronic- Primary documented in this encounter Historical Medications * This list may reflect changes made after this encounter. GLUCOSAMINE/CHONDR OITIN SULF A (GLUCOSAMINE-CHOND ROITIN ORAL) Take by mouth daily. added in this encounter Care Teams Renal Nurse Relationship Specialty Start Date End Date Odilon Alejo MD [address] [place] [address] PCP - General 12/31/13 documented as of this encounter
--- OUTSIDE RECORDS SUMMARY | 2024-02-11 20:39 | XMS_ITS | Encounter Summary ---
Author Organization [facility] Address [address] [place] [address] Care Team Providers Care Commercial Real Estate Associate Name Role Phone Odilon Alejo MD Primary Care Provider [phone] Reason for Visit * Reason Comments Knee Pain Encounter Details Date Type Department Care Team (Late st Contact Info) Description 03/19/2014 15:30 EST Office Visit [facility] Sports Medicine Program [place] [address] Fred Arango Knee pain, bilateral (Primary Dx); Acute medial meniscus tear of right knee Social History Tobacco Use Types Packs/Day Years [...] - Inhaled Oxygen Concentration - - Weight 104.3 kg (230 lb) 03/19/2014 1516 EST Height 177.8 cm (5' 10) 03/19/2014 1516 EST Body Mass Index 33 03/19/2014 1516 EST documented in this encounter Progress Notes * Fred Arango PA-C - 03/19/2014 1527 EST OFFICE VISIT: Bilateral knee pain. 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 He notes the right knee is more soirritating, especially with squatting. He has been noticing some significant effusion. OBJECTIVE: On exam, there is 1+ edema into the right knee with pain medially on Anuj's testing and some decreased range of motion, flexing to about 120 degrees. Review of the MRI of this right knee does show a horizontal undersurface tear of the medial meniscus. There is some weightbearing surface articular cartilage thinning on the medial femoral compartment. Also noted is an interarticular filling defect in the lateral recess of the patella. As for the left knee, he states it is less bothersome, but it is still quite a bit irritating for him. Review of the left knee MRI shows no obvious meniscal tear, although I do see linear irregularity in the medial meniscus. It does not go all the way to the free edge. There is also some medial femoral compartment weightbearing surface thinning and a little bit of a quad tendinitis. ASSESSMENT: 1. Right knee medial meniscus tear. 2. Left knee pain. PLAN: At this point, I think the patient is most likely a good candidate for arthroscopic debridement on his right knee and I would like to have him followed up with one of the knee surgeons in the near future for their exam and opinion. I think after we have addressed his right knee and depending on how he does we can certainly address the left one at a later time if it continues to be problematic for him. The patient seen at a time Dr Capellan is in clinic and available for consultation. documented in this encounter Plan of Treatment Not on file documented as of this encounter Visit Diagnoses Diagnosis Knee pain, bilateral- Primary Pain in joint, lower leg Acute medial meniscus tear of right knee Tear of medial cartilage or meniscus of knee, current documented in this encounter Care Teams Commercial Real Estate Associate Relationship Specialty Start Date End Date Odilon Alejo MD [address] [place] [address] PCP - General 12/31/13 documented as of this encounter
--- OUTSIDE RECORDS SUMMARY | 2024-02-11 20:39 | XMS_ITS | Encounter Summary ---
Author Organization [facility] Address [address] [place] [address] Care Team Providers Care Face Burler Name Role Phone Odilon Alejo MD Primary Care Provider [phone] Reason for Visit * Reason Comments Procedure Preop for right knee arthroscopy/partial medial menisectomy 05/20/14 Encounter Details Date Type Department Care Team (Late st Contact Info) Description 04/23/2014 Pre-Procedure Orders Encounter [facility] Medicine Program - [address] [place] [address] Cher Coleman, MANUFACTURING APPLICATIONS ENGINEER [address] [place] [address] Tear of medial cartilage or meniscus of knee, current (Primary Dx) Social History Tobacco Use Types [...] as of this encounter Visit Diagnoses Diagnosis Tear of medial cartilage or meniscus of knee, current- Primary documented in this encounter Care Teams Face Burler Relationship Specialty Start Date End Date Odilon Alejo MD [address] [place] [address] PCP - General 12/31/13 documented as of this encounter
--- OUTSIDE RECORDS SUMMARY | 2024-02-11 20:39 | XMS_ITS | Encounter Summary ---
Author Organization [facility] Address [address] [place] [address] Care Team Providers Care Fashion Illustrator Name Role Phone Odilon Alejo MD Primary Care Provider [phone] Reason for Visit * Reason Comments Knee Pain left Encounter Details Date Type Department Care Team (Late st Contact Info) Description 09/01/2014 10:45 EDT Office Visit [facility] Sports Medicine Program - [address] [place], [place] [id number] Fred Arango Left knee pain (Primary Dx) Social History Tobacco [...] - Inhaled Oxygen Concentration - - Weight 102.1 kg (225 lb) 09/01/2014 1056 EDT Height 177.8 cm (5' 10) 09/01/2014 1056 EDT Body Mass Index 32.28 09/01/2014 1056 EDT documented in this encounter Progress Notes * Fred Arango PA-C - 09/01/2014 1127 EDT OFFICE VISIT: Left knee pain. 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 He has chronically had bilateral knee pains and underwent arthroscopic procedure, partial meniscectomy on the right knee with Dr Tariq back in May. He still has some continued swelling in this knee, but his left knee is becoming more problematic. He has had an MRI that did show some degeneration of the medial meniscus and this is continuing to be an irritating factor for this patient. He is unable to squat or kneel and is unable to climbas he is accustomed to. He notes occasional swelling in the left knee as well. OBJECTIVE: On exam, no active effusion. He has good range of motion from 0 to 130 degrees flexion with some increasing pain medially to forced flexion. He is stable to valgus varus stressors, but to valgus stressors he has increasing pain medially. There is a little crepitus on the patella on rangeof motion. There is exacerbation of his pain to Anuj's testing. No instabilities to anterior fabiola wer or Janiya's. X-rays reviewed, shows no obvious bony abnormalities. ASSESSMENT: Left knee pain. PLAN: I do feel patient is dealing with a bit of a meniscal irritation, if not a full tear, and I think it would be best to get him back in to see Dr Tariq in the near future for his exam and opinion to determine if any surgical intervention would be appropriate at this time. I spoke to patient at length about the pathophysiology of the condition and I want him to really start working on some range of motion and quad strengthening exercises as this can sometimes help minimize his pain and if this does result into requiring surgery, the better shape the knee is prior to surgery, the better postop course, he will have. The patient is seen at a time Dr Arriaza is in clinic and available for consultation. documented in this encounter Plan of Treatment Not on file documented as of this encounter Visit Diagnoses Diagnosis Left knee pain- Primary Pain in joint, lower leg documented in this encounter Historical Medications * This list may reflect changes made after this encounter. Multivitamins with Minerals tablet Take 1 Tablet by mouth daily. ibuprofen (MOTRIN) 200 mg tablet Take 200 mg by mouth as needed for Pain 04/07/2019 added in this encounter Care Teams Fashion Illustrator Relationship Specialty Start Date End Date Odilon Alejo MD [address] [place] [address] PCP - General 12/31/13 documented as of this encounter
--- OUTSIDE RECORDS SUMMARY | 2024-02-11 20:39 | XMS_ITS | Encounter Summary ---
Author Organization [facility] Address [address] [place] [address] Care Team Providers Care Rn Angiography Name Role Phone Odilon Alejo MD Primary Care Provider [phone] Reason for Visit * Reason Onset Date Comments Knee Pain 02/26/2014 Encounter Details Date Type Department Care Team (Late st Contact Info) Description 02/26/2014 Orders Only [facility] Sports Medicine Program - [address] [place], [place] [id number] Fred Arango Bilateral knee pain (Primary Dx) Social History Tobacco [...] 7:44 EDT documented as of this encounter Plan of Treatment Not on file documented as of this encounter Procedures Procedure Name Priority Date/Time Associated Diagnosis Comments MR EXTREMITY KNEE WO CONTRAST 03/16/2014 22:05 EST documented in this encounter Results * MR EXTREMITY KNEE WO CONTRAST (03/16/2014 22:05 EST) Anatomical Region Laterality Modality Other 03/16/2014 22:0 5 EST 03/17/2014 15:40 EST Narrative 03/17/2014 15:40 EST MR EXTREMITY RIGHT KNEE WO CONTRAST, MR EXTREMITY LEFT KNEE WO CONTRAST ??03/16/2014 10:05 PM Signs and Symptoms/Comments: ??719.46-Pain in joint, lower lon-URF-9-CM; bilateral knee pain. Rule out meniscus tear/degeneration. [...] Signs and Symptoms/Comments: 719.46-Pain in joint, lower nbs-IVO-8-CM; bilateral knee pain. Rule out meniscus tear/degeneration. [...] and agree with the findings. Fred Arango [facility] [place] Final Result documented in this encounter Visit Diagnoses Diagnosis Bilateral knee pain- Primary Pain in joint, lower leg documented in this encounter Care Teams Rn Angiography Relationship Specialty Start Date End Date Odilon Alejo MD [address] [place] [id number] PCP - General 12/31/13 documented as of this encounter
--- OUTSIDE RECORDS SUMMARY | 2024-02-11 20:39 | XMS_ITS | Encounter Summary ---
Author Organization [facility] Address [address] [place] [address] Care Team Providers Care Land Commissioner Name Role Phone Odilon Alejo MD Primary Care Provider [phone] Reason for Visit * Reason Comments Cardiac Testing * Cardiology (Routine) - Order Cancelled Specialty Diagnoses / Procedures [facility] Referred To Contact Diagnoses Atrial flutter, unspecified type (FORM[facility]) Procedures EXERCISE TOLERANCE TEST Odilon Alejo MD [address] [place] [address] Phone: tel: fax: Referral ID Status Reason Start Date Expiration Date V isits Requested Visits Authorized [id number] Order Cancelled 09/17/2018 1 1 Encounter Details Date Type Department Care Team (Latest Contact Info) Description 09/29/2018 14:00 EDT Procedure visit [facility] Cardiology - [place] [address] Odilon Alejo MD [address] [place] [id number] Dary Garcia Discharge Disposition: Auto Discharge Social History Tobacco Use Types Packs/Day Years [...] as of this encounter Discharge Diagnoses Diagnosis I48.92 Unspecified atrial flutter-I48.92[ICD-10-CM] R07.89 Other chest pain-R07.89[ICD-10-CM] documented in this encounter Discharge Disposition Disposition Code Departure Means Destination Auto Discharge documented in this encounter Plan of Treatment Not on file documented as of this encounter Procedures Procedure Name Priority Date/Time Associated Diagnosis Comments STRESS TEST - SCANNED 09/30/2018 11:39 EDT documented in this encounter Results * STRESS TEST - SCANNED (09/30/2018 11:39 EDT) Anatomical Region Laterality Modality Other 09/30/2018 11:3 9 EDT us Scan 2 Executive Consultant IMG OTHER IMAGING ORDERABLE S Final Result documented in this encounter Visit Diagnoses Not on filedocumented in this encounter Care Teams Land Commissioner Relationship Specialty Start Date End Date Odilon Alejo MD [address] [place] [address] PCP - General 12/31/13 documented as of this encounter
--- OUTSIDE RECORDS SUMMARY | 2024-02-11 20:39 | XMS_ITS | Encounter Summary ---
Author Organization [facility] Address [address] [place] [address] Care Team Providers Care Inverter And Clipper Name Role Phone Odilon Alejo MD Primary Care Provider [phone] Reason for Visit * Reason Onset Date Comments Appointment Related 03/02/2014 Encounter Details Date Type Department Care Team (Late st Contact Info) Description 03/02/2014 Telephone [facility] Sports Medicine Program [place] [address] Fred Arango Appointment Related Social History Tobacco Use Types Packs/Day Years [...] encounter Miscellaneous Notes * Telephone Encounter - Joshua Campo Jr. - 03/02/2014 1818 EST Left message at pt's home number for his MRI (03/16@8:15 pm check in Main) and follow up with Mr. Arango (03/19@3:30 pm). documented in this encounter Plan of Treatment Not on file documented as of this encounter Visit Diagnoses Not on filedocumented in this encounter Care Teams Inverter And Clipper Relationship Specialty Start Date End Date Odilon Alejo MD [address] [place] [address] PCP - General 12/31/13 documented as of this encounter
--- OUTSIDE RECORDS SUMMARY | 2024-02-11 20:39 | XMS_ITS | Encounter Summary ---
[place] [address] Care Team Providers Care Shellfish Grower Name Role Phone Marylou Pineda Primary Care Provider [phone] Reason for Referral * Consultation (Routine) - Closed Specialty Diagnoses / Procedures Referred By Contact Referred To Contact Electrophysiology / Cardiology Diagnoses Tachycardia Autonomic testing consistent w/ POTS. EP eval re: further potential med - possibly ivabradine Ramila Sanchez MD [address] [place], [place] [id number] [place] [address] [place] [phone] Referral ID Status Reason Start Date Expiration Date V isits Requested Visits Authorized [id number] Closed Consult, Test & Treat PCP Updated and/or Approved 10/25/2021 10/25/2022 6 6 Encounter Details Date Type Department Care Team (Late st Contact Info) Description 10/25/2021 Transcribe Orders eDH Incoming Referrals [phone] Ramila Sanchez MD Tachycardia Social History Tobacco Use Types Packs/Day Years Used Date Smoking Tobacco: Never Smokeless Tobacco: Never Sex and Gender Information Value Date Recorded Sex Assigned at Not on file Gender Identity Not on file Sexual Orientation Not on file documented as of this encounter Plan of Treatment Scheduled Referrals Name Type Priority Associated Diagnoses Order Schedule Referral to Cardiac Electrophysiology Outpatient Referral Routine Tachycardia Ordered: 10/25/2021 documented as of this encounter Visit Diagnoses Diagnosis Tachycardia Tachycardia, unspecified documented in this encounter Care Teams Shellfish Grower Relationship Specialty Start Date End Date Marylou Pineda PA [address] [place] [id number] PCP - General Family Medicine 08/12/19 documented as of this encounter
--- OUTSIDE RECORDS SUMMARY | 2024-02-11 20:39 | XMS_ITS | Encounter Summary ---
Author Organization [facility] Address [address] [place] [address] Care Team Providers Care Hydraulic Specialist Name Role Phone Odilon Alejo MD Primary Care Provider [phone] Reason for Referral * Radiology Services (Routine) - Closed Specialty Diagnoses / Procedures Referred By Contzach t Referred To Contact Diagnoses Left knee pain Procedures KNEE 4 OR MORE VIEWS Hoang Tariq MD Phone: tel: fax: Referral ID Status Reason Start Date Expiration Date Visits Re quested Visits Authorized [id number] Closed 10/05/2014 1 1 Reason for Visit * Reason Onset Date Comments Other 10/05/2014 Encounter Details Date Type Department Care Team (Late st Contact Info) Description 10/05/2014 Orders Only [facility] Sports Medicine Program - [address] [address] Hoang Tariq MD [address] [place] [phone] Left knee pain (Primary Dx) Social History [...] Comments KNEE 4 OR MORE VIEWS Routine 10/05/2014 9:57 EDT Left knee pain documented in this encounter Results * KNEE 4 OR MORE VIEWS (10/05/2014 9:57 EDT) Anatomical Region Laterality Modality Other 10/05/2014 9:57 EDT 10/05/2014 10:12 EDT Narrative 10/05/2014 10:12 EDT KNEE 4 OR MORE VIEWS ??10/05/2014 9:57 AM Signs and Symptoms/Comments: ?? 719.46-Pain in joint, lower lom-WAV-7-CM; Left knee pain Comparison: Outside radiographs of the left knee dated January 01, 2014. MRI of the left knee dated March 16, 2014. Findings: PA weightbearing views with and without flexion, lateral weight-bearing view, and axial (sunrise) view show no evidence of acute fracture or malalignment, no sizable left knee joint effusion is identified either. There is minimal joint space narrowing along the posterior aspect of the medial femorotibial compartment. The joint space in the lateral femorotibial compartment is preserved. The patellofemoral joint is congruent. Mineralization is age-appropriate. Soft tissues are grossly unremarkable. Procedure Note Stephen Toney MD - 10/05/2014 KNEE 4 OR MORE VIEWS 10/05/2014 9:57 AM Signs and Symptoms/Comments: 719.46-Pain in joint, lower dxe-EVC-4-CM; Left knee pain Comparison: Outside radiographs of the left knee dated January 01, 2014. MRI of the left knee dated March 16, 2014. Findings: PA weightbearing views with and without flexion, lateral weight-bearing view, and axial (sunrise) view show no evidence of acute fracture or malalignment, no sizable left knee joint effusion is identified either. There is minimal joint space narrowing along the posterior aspect of the medial femorotibial compartment. The joint space in the lateral femorotibial compartment is preserved. The patellofemoral joint is congruent. Mineralization is age-appropriate. Soft tissues are grossly unremarkable. us Hoang Tariq MD IMG DIAGNOSTIC IMAGING ORDERABLES Final Result documented in this encounter Visit Diagnoses Diagnosis Left knee pain- Primary Pain in joint, lower leg documented in this encounter Care Teams Hydraulic Specialist Relationship Specialty Start Date End Date Odilon Alejo MD [address] [place] [address] PCP - General 12/31/13 documented as of this encounter
--- OUTSIDE RECORDS SUMMARY | 2024-02-11 20:39 | XMS_ITS | Encounter Summary ---
Author Organization [facility] Address [address] [place] [address] Care Team Providers Care Distance Learning Unit Leader Name Role Phone Odilon Alejo MD Primary Care Provider Encounter Details Date Type Department Care Team (Latest Contact Info) Description 05/21/2014 12:59 EDT - 05/21/2014 16:18 EDT Hospital Encounter [facility] Perioperative Services - [address] [id number] Hoang Tariq MD [address] [place] [phone] Tear of medial cartilage or meniscus of knee, current Discharge Disposition: Home or Self Care Social [...] Sign Reading Time Taken Comments Blood Pressure 126/74 05/21/2014 1553 EDT Pulse - - Temperature 37 ??C (98.6 ??F) 05/21/2014 1553 EDT Respiratory Rate 16 05/21/2014 1553 EDT Oxygen Saturation 97% 05/21/2014 1553 EDT Inhaled Oxygen Concentration - - Weight 106.6 kg (235 lb) 05/13/2014 0942 EDT Height 176.5 cm (5' 9.5) 05/13/2014 0942 EDT Body Mass Index 34.21 05/13/2014 0942 EDT documented in this encounter Discharge Instructions * Discharge Instructions* Mckenzie Omer PA - 05/21/2014 14:24 EDT Hoang Tariq MD [facility] Sports Medicine [address] [place] [address] WHAT TO EXPECT AFTER ARTHROSCOPIC KNEE SURGERY Pain Control ??? It is normal to have swelling and discomfort in the knee for several weeks after surgery, depending on the nature of the procedure. ??? Plan ahead to take at least a few days off from work or school. Make sure there is someone around who can help you with basic tasks after surgery. ??? Apply ice bags, ice packs, or a cryotherapy device to control swelling. Ice should be applied 30 minutes at a time, every hour or two. Put a thin towel or T-shirt next to your skin if using ice in a plastic bag. Icing is most important in the first 72 hours, although many people find that continuing it lessens their postoperative pain weeks after their surgery. ??? If you had a nerve block, the local anesthetic may keep your leg numb for several hours. You may be given a prescription for narcotic pain medication when you are discharged from the hospital. Ifyou find you do not tolerate it well, call our office, preferably during business hours, so that wecan better assist you. Do not drive a car or operate machinery while taking narcotics. ??? Some narcotics such as Percocet and Vicodin have Tylenol in them. Others such as Oxycodone and Dilaudid do not. If the medication you were prescribed does not contain Tylenol, you may supplement the narcotic pain medication with Tylenol at the recommended dose. Try to wean off the narcotic painmedication as soon as possible. Anti-inflammatories such as Ibuprofen, Aleve, Motrin, or Naprosyn may be taken as well, depending on the type of surgery performed. Your doctor will discuss this with you before you are discharged. ??? KEEP THE LEG ELEVATED. This will help to prevent swelling and help decrease pain. The leg must be elevated higher than the level of your heart. Do not place anything behind the knee. Place rolledtowels or pillows under your ankle. Deep Venous Thrombosis (Blood Clot) Prevention ??? We recommend that you take a baby aspirin (81 mg) daily for 2 weeks following your surgery. ??? PUMP YOUR ANKLES UP AND DOWN. This should be done several times an hour to keep the blood circulating in your leg and to help prevent blood clots from forming. ??? If possible, avoid long car rides or plane trips for at least 2 weeks after surgery. Wound Care ??? Keep the post-op dressing clean and dry. Unless it becomes wet or too tight because of swelling, leave the bandages in place for at least two days. It is normal for some blood to soak through thebandages. If this occurs, you may reinforce the dressing with another clean one. ??? REMOVE YOUR BANDAGES 48 HOURS AFTER SURGERY UNLESS OTHERWISE INSTRUCTED BY YOUR DOCTOR. Cover the small incisions with Band-Aids to keep sutures from snagging. You may shower then as long as the incisions are completely dry with no drainage, but do not scrub the area. If there is active drainage when you remove the dressing, blot it dry and cover with a new dry dressing until the drainage stops. ??? Do not wet your incisions directly (bathing or swimming) until you have discussed this with your doctor at your first post-operative visit. ??? Should you have superficial sutures, they will be removed within 10 days of your surgery. Our office or your physical therapist can assist you with this. In some cases, we use absorbable sutures which do not need to be removed. Follow-up and Physical Therapy ??? We would like to see you back in the office within 1 week after surgery. If you don't have yourfirst post-op visit scheduled, please call our office to make one.[phone] ??? You may be instructed to start physical therapy right away. If so, you will be given specific instructions upon discharge. Most patients will start therapy after their first post-operative visit.Please make arrangements before surgery for your post-operative therapy so there is no delay when you start. ??? Use crutches and bear weight according to the instructions from your doctor. ??? If you experience continuous incisional drainage, redness, swelling, shortness of breath, or fever, please call our office or go to the nearest emergency department. Driving ??? In general, you may resume driving when you have full control of your limbs, are pain free, andoff all narcotic pain medications. Future Appointments Date Time Provider Department Center 05/24/2014 11:30 Sahara Luz PT [facility] None 05/24/2014 11:30 Hoang Tariq MD [facility] None documented in this encounter Medications at Time [...] 05/21/2014 0 documented as of this encounter Ordered Prescriptions Prescription Sig Dispense Quantity Refills Last Filled Start Date End Date promethazine (PHENERGAN) 12.5 mg tablet Take 1 Tab by mouth every 6 hours as needed for Nausea 20 Tab 0 05/21/2014 0 docusate sodium (COLACE) 100 mg capsule Take 1 Cap by mouth daily 40 Cap 0 05/21/2014 0 oxyCODONE (ROXICODONE) 5 mg immediate release tablet Take 1-3 Tabs by mouth every 4 hours as needed for Pain Daily Max: 90 mg 40 Tab 0 05/21/2014 0 naproxen (NAPROSYN) 500 mg tablet Take 1 Tab by mouth 2 times daily with breakfast and dinner 60 Tab 0 05/21/2014 02/25/202 0 documented in this encounter Discharge Disposition Disposition Code Departure Means Destination Home or Self Care documented in this encounter Progress Notes * Susie French RN - 05/13/2014 0947 EDT Kosta Song has been instructed as follows regarding medication administration for the day of the scheduled procedure. Date of Surgery: 05/20/14 Instructions for Taking Medications Day of Surgery Medication Sig Last Dose Hold DOS Take DOS GLUCOSAMINE/CHONDROITIN SULF A (GLUCOSAMINE-CHONDROITIN ORAL) Take by mouth daily. 05/13/14 X ibuprofen (MOTRIN) 600 mg tablet Take 1 Tab by mouth every 8 hours as needed for Pain. 05/13/14 X documented in this encounter H&P Notes * Hoang Tariq MD - 05/21/2014 1406 EDT The preoperative history and physical which was performed within 30 days of this procedure has been reviewed and the clinically appropriate elements of the physical examination have been repeated. There are no changes to the documented history and physical or if so such changes are documented below Hoang Tariq MD 05/21/2014 14:06 Source Note - SURGICAL SPECIALIST, OPHELIA 2 - 05/18/2014 13:22 EDT documented in this encounter OR Notes * OR Surgeon - Hoang Tariq MD - 05/21/20142058 EDT OPERATIVE REPORT SERVICE DATE: 05/21/2014 SURGEON: Hoang Tariq MD FOREST FIRE LOOKOUT: None. PREOPERATIVE DIAGNOSIS: Right knee pain and medial meniscus tear. POSTOPERATIVE DIAGNOSIS: Right knee pain and medial meniscus tear. PROCEDURE: Right arthroscopic partial medial meniscectomy. ANESTHESIA: General plus local. ESTIMATED BLOOD LOSS: Minimal. FLUIDS: Per anesthesia record. URINE OUTPUT: Not recorded. TOURNIQUET TIME: 21 minutes. IMPLANTS: None. SPECIMENS: None. DRAINS: None. COMPLICATIONS: None. DISPOSITION: PACU. INDICATIONS: A 33-year-old male with a symptomatic right medial meniscus tear. See PRISM notes for full details of his history, physical examination and imaging studies. Nonsurgical and surgical options were discussed. He elected surgery. Risks were discussed including infection, bleeding, nerve injury, skin numbness, blood clots, medical complications, need for additional surgery, stiffness, arthrosis, incomplete pain relief and incomplete return of function. NARRATIVE: Informed consent was obtained from the patient. His right thigh was marked in the preoperative hold area. He was brought to the operating room and placed supine on the operating room table. General anesthetic was administered by the anesthesiology staff. He received 2 g of Kefzol within 1 hour of making the skin incision. Examination under anesthesia revealed no passive range of motiondeficits. IKDC-A Janiya test, IKDC-A medial and lateral joint opening at 0 and 20 degrees of flexion, IKDC-A posterior drawer. A nonsterile tourniquet was placed on his right proximal thigh. His right lower extremity was prepped and draped in the usual sterile fashion. A time-out was undertaken confirming the right knee as the correct operative site. The right lower extremity was exsanguinated with an Esmarch bandage. The tourniquet was inflated to250 mmHg. Anterolateral and anteromedial arthroscopy portals were made. The joint was examined systematically. Findings are as follows: 1. No loose bodies in the suprapatellar pouch. 2. ICRS 0 patella. 3. ICRS 0 trochlea. 4. No loose bodies in the lateral gutter. Popliteus tendon intact. 5. No loose bodies in the medial gutter. 6. ACL and PCL were normal. 7. Lateral meniscus normal. 8. ICRS 0 lateral femoral condyle and lateral tibial plateau. 9. There was a horizontal cleavage tear of the posterior third of the medial meniscus involving Prakash zone A, areas 3 and 2. This extended into a displaced flap tear involving the posterior third ofthe middle aspect of the medial meniscus. 10. ICRS 0 medial femoral condyle. 11. ICRS 0 medial tibial plateau. Using a spinal needle for localization, a low horizontal anteromedial portal was made. A motorized shaver and biting instruments were used to debride the unstable torn portions of the medial meniscus, leaving a stable balanced remnant as confirmed with a probe. The joint was lavaged and evacuated of fluid. Portal sites were closed with 3-0 Prolene suture and infiltrated with 15 mL of 0.25% Marcaine with epinephrine. Sterile compressive dressing was applied. The tourniquet was deflated. He was extubated in the operating room and taken to PACU in satisfactory condition. I was present for the entire case. Unless otherwise noted, there were no complications, no blood loss, no cultures obtained, no specimens removed, and no drains retained. Hoang Tariq MD 03 33 PM / Hoang Tariq MD mn Confirmation: [id number] Dictation ID: [id number] cc:Odilon Alejo MD documented in this encounter Miscellaneous Notes * Anesthesia Post-Eval - Noel Ignacio MD - 05/21/2014 1609 EDT Post Anesthesia Evaluation Note Date of Service: 05/21/2014 Kosta Song, a 33 y.o. year old male has received General Anesthesia today. He has been evaluated, assessed and discharged from anesthesia care with stable cardiorespiratory function and easily arousable mental status. The last set of recorded vital signs and pain rating were reviewed: Temp: 37 ??C (98.6 ??F) (05/21/14 1553), Heart Rate: 88 BPM (05/21/14 1553), BP: 126/74 mmHg (05/21/14 1553), Resp: 16 (05/21/14 1553), SpO2: 97 % (05/21/14 1553),Numeric Pain Level (Scale 1-10): 4 Kosta Song participated in this evaluation unless otherwise noted. His pain, nausea and vomiting have been managed and his body temperature and fluid balance have been restored. Additional monitoring and assessment needs have been addressed. If present, any postoperative events are documentedbelow. Noel Ignacio MD 05/21/2014 16:09 documented in this encounter Plan of Treatment Not on file documented as of this encounter Procedures Procedure Name Priority Date/Time Associated Diagnosis Comments PROCEDURE REPORTS - SCANNED 06/02/2014 13:45 EDT ECG REPORT - SCANNED 05/26/2014 9:35 EDT documented in this encounter Results * PROCEDURE REPORTS - SCANNED (06/02/2014 13:45 EDT) 06/02/2014 13:4 5 EDT us Scan 2 Efficiency Analyst PROCEDURE/MINOR SURGICAL OR DERABLES Final Result * ECG REPORT - SCANNED (05/26/2014 9:35 EDT) 05/26/2014 9:35 EDT us Scan 2 Efficiency Analyst PROCEDURE/MINOR SURGICAL OR DERABLES Final Result documented in this encounter Visit Diagnoses Diagnosis Tear of medial cartilage or meniscus of knee, current Tear of medial cartilage or meniscus of knee, current documented in this encounter Administered Medications Inactive Administered Medications - up to 3 most recent administrations Medication Order MAR Action Action Date Dose Rate Site acetaminophen (TYLENOL) tablet 1,000 mg 1,000 mg, oral, PRN, 1 dose, Starting on Sat05/21/14 at 1506, Until Sat05/21/14 at 1524, Pain, Routine, Recovery (only) Given 05/21/2014 15:24 EDT 1,000 mg ceFAZolin (ANCEF) syringe 2 g 2 g, intravenous, Administer over 10 Minutes, PRE-OP ONCE, 1 dose, On Sat05/21/14 at 1330, Routine, Pre-Op DOS Rx Approved Given by Other 05/21/2014 14:37 EDT 2 g fentaNYL citrate (PF) 50 mcg/mL injection 25-100 mcg 25-100 mcg, intravenous, EVERY 5 MIN PRN, Starting on Sat05/21/14 at 1506, Until Sat05/21/14 at 1820, Pain, Routine, Recovery (only) Given 05/21/2014 15:43 EDT 50 mcg Given 05/21/2014 15:29 EDT 50 mcg lactated ringers (LR) infusion at 75 mL/hr, intravenous, CONTINUOUS, Starting on Sat05/21/14 at 1530, Until Sat05/21/14 at 1820, Routine, Recovery (only) Rate Documented 05/21/2014 15:12 EDT 75 mL/hr lactated ringers (LR) infusion at 25 mL/hr, intravenous, CONTINUOUS, Starting on Sat05/21/14 at 1330, Until Sat05/21/14 at 1820, Routine, Pre-Op DOS Rx Approved New Bag 05/21/2014 13:29 EDT 25 mL/hr oxyCODONE (ROXICODONE) immediate release tablet 5 mg 5 mg, oral, PRN, 2 doses, Starting on Sat05/21/14 at 1506, Until Sat05/21/14 at 1820, Pain, Routine, Recovery (only) Given 05/21/2014 15:24 EDT 5 mg documented in this encounter Discontinued Medications Medication Sig Discontinue Reason Start Date End Da te ibuprofen (MOTRIN) 600 mg tablet Take 1 Tab by mouth every 8 hours as needed for Pain. 10/21/2009 05/21/2014 documented as of this encounter Active and Recently Administered Medications Times are shown in EDT. Scheduled Medication Order 05/19/2014 05/20/2014 05/21/2014 ceFAZolin (ANCEF) syringe 2 g (COMPLETED) 2 g, intravenous, Administer over 10 Minutes, PRE-OP ONCE, 1 dose, On Sat05/21/14 at 1330, Routine, Pre-Op DOS Rx Approved 1437 (Given by Other - Provider: Kimberli Guzman RN - Comment: given by Char Almodovar CRNA) Continuous Medication Order 05/19/2014 05/20/2014 05/21/2014 lactated ringers (LR) infusion (CANCELED) at 75 mL/hr, intravenous, CONTINUOUS, Starting on Sat05/21/14 at 1530, Until Sat05/21/14 at 1820, Routine, Recovery (only) 1512 (Rate Documente d - Provider: Sarah Nino RN)1530 (Due)1609 (IV Stopped - Provider: Ministerio Rider RN) lactated ringers (LR) infusion (CANCELED) at 25 mL/hr, intravenous, CONTINUOUS, Starting on Sat05/21/14 at 1330, Until Sat05/21/14 at 1820, Routine, Pre-Op DOS Rx Approved 1329 (New Bag - Prov ider: Staci Ramos RN)1512 (Completed - Provider: Sarah Nino RN) PRN Medication Order 05/19/2014 05/20/2014 05/21/2014 acetaminophen (TYLENOL) tablet 1,000 mg (COMPLETED)(Linked Group 1) 1,000 mg, oral, PRN, 1 dose, Starting on Sat05/21/14 at 1506, Until Sat05/21/14 at 1524, Pain, Routine, Recovery (only) 1524 (Given - Provid er: Sarah Nino RN) fentaNYL citrate (PF) 50 mcg/mL injection 25-100 mcg (CANCELED) 25-100 mcg, intravenous, EVERY 5 MIN PRN, Starting on Sat05/21/14 at 1506, Until Sat05/21/14 at 1820, Pain, Routine, Recovery (only) 1529 (Given - Provid er: Sarah Nino RN)1543 (Given - Provider: Sarah Nino RN) oxyCODONE (ROXICODONE) immediate release tablet 5 mg (CANCELED) 5 mg, oral, PRN, 2 doses, Starting on Sat05/21/14 at 1506, Until Sat05/21/14 at 1820, Pain, Routine, Recovery (only) 1524 (Given - Provid er: Sarah Nino RN) Linked Groups Order Group 1: acetaminophen (TYLENOL) tablet 1,000 mg (COMPLETED)Jump to med 1,000 mg, oral, PRN, 1 dose, Starting on Sat05/21/14 at 1506, Until Sat05/21/14 at 1524, Pain, Routine, Recovery (only) Or acetaminophen (TYLENOL) solution unit dose cup 325 mg (COMPLETED) 325 mg, oral, PRN, 1 dose, Starting on Sat05/21/14 at 1506, Until Sat05/21/14 at 1524, Pain, Routine, Recovery (only) documented in this encounter Orders Medications Ordered That Bridger ht Not Have Been Administered Count Last Ordered Date First Ordered Date acetaminophen (TYLENOL) solu tion unit dose cup 325 mg 1 05/21/2014 atropine 0.1 mg/mL syringe 0.5 mg 1 015 diphenhydrAMINE (BENADRYL) i njection 6.25 mg 1 05/21/2014 HYDROmorphone (PF) (DILAUDID ) 1 mg/mL injection 0.2-1 mg 1 05/21/2014 nalOXone (NARCAN) injection 0.2 mg 1 2014 ondansetron (PF) (ZOFRAN) injection 2-4 mg 1 05/21/2014 Nursing Count Last Ordered Date First Orde red Date PLACE SEQUENTIAL COMPRESSION DEVICE 1 05/21 Admission Count Last Ordered Date First Orde red Date STATUS: OUTPATIENT SURGICAL OP BED/SERVICES 1 05/21/2014 Transfer Count Last Ordered Date First Orde red Date NOTIFY PPS PACU PATIENT DISCHARGE 1 015 Discharge Count Last Ordered Date First Orde red Date DISCHARGE PATIENT 1 05/21/2014 documented in this encounter Care Teams Distance Learning Unit Leader Relationship Specialty Start Date End Date Odilon Alejo MD [address] [place] [address] PCP - General 12/31/13 documented as of this encounter
--- OUTSIDE RECORDS SUMMARY | 2024-02-11 20:39 | XMS_ITS | Encounter Summary ---
Author Organization [facility] Address [address] [place] [address] Care Team Providers Care Hand Scraper Name Role Phone Odilon Alejo MD Primary Care Provider [phone] Encounter Details Date Type Department Care Team (Late st Contact Info) Description 12/31/2013 Results Only Imaging [facility] Sports Medicine Program [place] [address] [place] [address] Fred Arango Social History Tobacco Use Types [...] OUTSIDE IMAGES - PLAIN FILM [facility] Imaging 12/31/2013 14:18 EST documented as of this encounter Visit Diagnoses Not on filedocumented in this encounter Care Teams Hand Scraper Relationship Specialty Start Date End Date Odilon Alejo MD [address] [place] [address] PCP - General 12/31/13 documented as of this encounter
--- OUTSIDE RECORDS SUMMARY | 2024-02-11 20:39 | XMS_ITS | Encounter Summary ---
Author Organization [facility] Address [address] [place] [address] Care Team Providers Care Smelting Engineer Name Role Phone Odilon Alejo MD Primary Care Provider [phone] Reason for Referral * Cardiology (Routine/Next Available) - Specialty Report Received Specialty Diagnoses / Procedures Referred By Ravinac t Referred To Contact Cardiology Diagnoses Palpitations Procedures CARDIAC EVENT MONITOR Diego Carvajal MD Phone: tel: fax: [facility] Cardiology - [place] [address] [place] [address] Phone: tel: fax: Referral ID Status Reason Start Date Expiration Date V isits Requested Visits Authorized [id number] Specialty Report Received 04/07/2019 1 1 Reason for Visit * Cardiology (Routine/Next Available) - Specialty Report Received Specialty Diagnoses / Procedures Referred By Contac t Referred To Contact Cardiology Diagnoses Palpitations Procedures CARDIAC EVENT MONITOR Diego Carvajal MD Phone: tel: fax: [facility] Cardiology [place] [address] [place] [address] Phone: tel: fax: Referral ID Status Reason Start Date Expiration Date V isits Requested Visits Authorized [id number] Specialty Report Received 04/07/2019 1 1 Encounter Details Date Type Department Care Team (Latest Contact Info) Description 05/25/2019 7:33 EDT - 05/25/2019 23:59 EDT Hospital Encounter [facility] Non-Invasive Cardiology - [address] [address] Palpitations Discharge Disposition: Home or Self Care Social [...] Procedure Name Priority Date/Time Associated Diagnosis Comments 30 DAY GEOGRAPHIC INFORMATION SYSTEMS DIRECTOR Routine 05/25/2019 7:33 EDT Palpitations documented in this encounter Results * CARDIAC EVENT MONITOR [...] rare episodes of sinus rhythm with PVCs. Diego Carvajal MD CARDIAC SERVICES ORDERAB LES Final Result documented in this encounter Visit Diagnoses Diagnosis Palpitations documented in this encounter Care Teams Smelting Engineer Relationship Specialty Start Date End Date Odilon Alejo MD [address] [place] [address] PCP - General 12/31/13 documented as of this encounter
--- OUTSIDE RECORDS SUMMARY | 2024-02-11 20:39 | XMS_ITS | Encounter Summary ---
Author Organization [facility] Address [address] [place] [address] Care Team Providers Care Sericulturist Name Role Phone Unknown, Provider MD Primary Care Provider Unava ilable Reason for Visit * Reason Comments Chest Pain chest pain that star lali 1/2 hr ago with pain that radiates to the left shoulder. Bilateral hands clammy. Pain in neck. Encounter Details Date Type Department Care Team (Late st Contact Info) Description 10/21/2009 15:20 EDT - 10/21/2009 18:11 EDT Emergency [facility] Emergency Department - [address] [address] Aba Salazar MD [address] [place] [address], [address] [place] [address] Emergency, MD Richard Atypical chest pain; Musculoskeletal chest pain Discharge Disposition: Home or Self Care Social [...] Sign Reading Time Taken Comments Blood Pressure 139/73 10/21/2009 1649 EDT Pulse 87 10/21/2009 1649 EDT Temperature 36.2 ??C (97.2 ??F) 10/21/2009 1523 EDT Respiratory Rate 19 10/21/2009 1653 EDT Oxygen Saturation 97% 10/21/2009 1653 EDT Inhaled Oxygen Concentration - - Weight 95.3 kg (210 lb) 10/21/2009 1523 EDT Height - - Body Mass Index - - documented in this encounter Discharge Instructions * Discharge Instructions* Aba Salazar MD - 10/21/2009 17:06 EDT Images from the original note were not included. [facility] Patient Instructions Return if symptoms worsen or if symptoms Medications as instructed Musculoskeletal Chest Pain: After Your Visit Your Care Instructions Chest pain is not always a sign that something is wrong with your heart or that you have another serious problem. The doctor thinks your chest pain is caused by strained muscles or ligaments, inflamed chest cartilage, or another problem in your chest, rather than by your heart. You may need more tests to find the cause of your chest pain. Follow-up care is a quiros part of your treatment and safety. Be sure to make and go to all appointments, and call your doctor if you are having problems. It???s also a good idea to know your test results and keep a list of the medicines you take. How can you care for yourself at home? ?? Take pain medicines exactly as directed. ?? If the doctor gave you a prescription medicine for pain, take it as prescribed. ?? If you are not taking a prescription pain medicine, ask your doctor if you can take an [id number] medicine. ?? Do not take two or more pain medicines at the same time unless the doctor told you to. Many painmedicines have acetaminophen, which is Tylenol. Too much acetaminophen (Tylenol) can be harmful. ?? Rest and protect the sore area. ?? Stop, change, or take a break from any activity that may be causing your pain or soreness. ?? Put ice or a cold pack on the sore area for 10 to 20 minutes at a time. Try to do this every 1 to 2 hours for the next 3 days (when you are awake) or until the swelling goes down. Put a thin clothbetween the ice and your skin. ?? After 2 or 3 days, apply a heating pad set on low or a warm cloth to the area that hurts. Some doctors suggest that you go back and forth between hot and cold. ?? Do not wrap or tape your ribs for support. This may cause you to take smaller breaths, which could increase your risk of lung problems. ?? Mentholated creams such as Bengay or Icy Hot may soothe sore muscles. Follow the instructions onthe package. ?? Follow your doctor's instructions for exercising. ?? Gentle stretching and massage may help you get better faster. Stretch slowly to the point just before pain begins, and hold the stretch for 15 to 30 seconds. Do this 3 or 4 times a day. Stretch just after you have applied heat. ?? As your pain gets better, slowly return to your normal activities. Any increased pain may be a sign that you need to rest a while longer. When should you call for help? Call 911 anytime you think you may need emergency care. For example, call if: ?? You have chest pain or pressure. This may occur with: ?? Sweating. ?? Shortness of breath. ?? Nausea or vomiting. ?? Pain that spreads from the chest to the neck, jaw, or one or both shoulders or arms. ?? Dizziness or lightheadedness. ?? A fast or uneven pulse. After calling 911, chew 1 adult-strength aspirin. Wait for an ambulance. Do not try to drive yourself. ?? You have sudden chest pain and shortness of breath, or you cough up blood. Call your doctor now or seek immediate medical care if: ?? You have any trouble breathing. ?? Your chest pain gets worse. ?? Your chest pain occurs consistently with exercise and is relieved by rest. Watch closely for changes in your health, and be sure to contact your doctor if: ?? Your chest pain does not get better after 1 week. Where can you learn more? Go to www.MyEdu.net/fahc Enter V293 in the search box to learn more about Musculoskeletal Chest Pain: After Your Visit. ?? 2005 - 2008 [employer]. Care instructions adapted under license by [facility] . This care instruction is for use with your licensed healthcare professional. If you have questions about a medical condition or this instruction, always ask your healthcare professional. [employer] disclaims any warranty or liability for your use of this information. documented in this encounter Medications at Time of Discharge ibuprofen (MOTRIN) 600 mg tablet Take 1 Tab by mouth every 8 hours as needed for Pain. 20 Tab 0 10/21/2009 05/21/2014 documented as of this encounter Ordered Prescriptions Prescription Sig Dispense Quantity Refills Last Filled Start Date End Date ibuprofen (MOTRIN) 600 mg tablet Take 1 Tab by mouth every 8 hours as needed for Pain. 20 Tab 0 10/21/2009 05/21/2014 documented in this encounter Discharge Disposition Disposition Code Departure Means Destination Home or Self Care documented in this encounter Procedure Notes * Inpatient, Physician - 10/21/2009 0000 EDTAssociated Order(s): ECG REPORT - SCANNED documented in this encounter ED Notes * Aba Salazar MD - 10/21/2009 1616 EDT DOS: 10/21/2009 Chief Complaint Patient presents with ??? Chest Pain chest pain that started 1/2 hr ago with pain that radiates to the left shoulder. Bilateral hands clammy. Pain in neck. The patient is a 29 y.o. male who presents today with Chest Pain HPI Comments: The patient is a 29-year-old male who presents to the emergency department with left sided chest pain radiating into his left neck and left shoulder. The pain is worse with certain positions and movement of the left shoulder. It can be somewhat reproduced with palpation of the left shoulder. He denies shortness of breath palpitations or nausea. He states that his palms of his hands got a little sweaty when the symptoms occurred. He denies any history of trauma to the left shoulderhe denies any strenuous exercise. He denies fevers or chills. He now presents for further regulation treatment. Chest Pain This is a new problem. The current episode started less than 1 hour ago. The problem occurs constantly. The problem has not changed since onset. The pain is associated with movement, raising an arm and lifting (certain positions). The pain is present in the lateral region. The pain is moderate. Thequality of the pain is described as brief and heavy. The pain radiates to the left shoulder. The symptoms are aggravated by certain positions. Pertinent negatives include no diaphoresis, no fever, nomalaise/fatigue, no numbness, no exertional chest pressure, no irregular heartbeat, no palpitations, no abdominal pain, no nausea, no vomiting, no headaches, no back pain, no dizziness, no weakness and no shortness of breath. Risk factors include being male and smoking/tobacco exposure. He has tried nothing for the symptoms. The history is provided by the patient. Review of Systems Constitutional: Negative for fever, chills, malaise/fatigue and diaphoresis. HENT: Negative for ear pain, sore throat, mouth sores, neck stiffness, sinus pressure and tinnitus. Eyes: Negative for photophobia and visual disturbance. Respiratory: Positive for chest tightness. Negative for shortness of breath and wheezing. Cardiovascular: Positive for chest pain. Negative for palpitations and leg swelling. Gastrointestinal: Negative for nausea, vomiting, abdominal pain and diarrhea. Genitourinary: Negative. Negative for dysuria and hematuria. Musculoskeletal: Negative for back pain. Skin: Negative for rash. Neurological: Negative for dizziness, weakness, numbness and headaches. Hematological: Negative. Psychiatric/Behavioral: Negative. Negative for confusion. All other systems reviewed and are negative. History reviewed. No pertinent past medical history. History reviewed. No pertinent past surgical history. Allergies Allergen Reactions ??? Sulfa (Sulfonamide Antibiotics) History Substance Use Topics ??? Tobacco Use: Yes -- 0.5 packs/day ??? Alcohol Use: Yes History reviewed. No pertinent family history. Vital Signs Temp: 36.2 ??C (97.2 ??F) Temp src: Tympanic Pulse: 87 Heart Rate (monitor): 92 BPM Resp: 19 SpO2: 97 % BP: 139/73 mmHg BP Device: BP Machine Patient Position: Sitting BP Cuff Location: Left arm O2 Device: None (Room air) Physical Exam Nursing note and vitals reviewed. Constitutional: He is oriented to person, place, and time. He appears well- developed and well-nourished. No distress. HENT: Head: Normocephalic and atraumatic. Right Ear: External ear normal. Left Ear: External ear normal. Nose: Nose normal. Mouth/Throat: Oropharynx is clear and moist. Eyes: Conjunctivae and extraocular motions are normal. Pupils are equal, round, and reactive to light. Neck: Normal range of motion. Neck supple. No tracheal deviation present. Cardiovascular: Normal rate, regular rhythm, normal heart sounds and intact distal pulses. No murmur heard. Pulmonary/Chest: Effort normal and breath sounds normal. No respiratory distress. He exhibits tenderness. Abdominal: Soft. Bowel sounds are normal. He exhibits no distension. No tenderness. He has no rebound. Musculoskeletal: Normal range of motion. Neurological: He is alert and oriented to person, place, and time. He has normal strength. He is not disoriented. No cranial nerve deficit or sensory deficit. Skin: Skin is warm and dry. No rash noted. He is not diaphoretic. Psychiatric: He has a normal mood and affect. Radiology orders: CHEST PA AND LATERAL CHEST PA AND LATERAL Final result not shown here.: EKG 12-LEAD (Results Pending) EKG 12-LEAD (Results Pending) Procedures ED Course: Patient is a 29-year-old male who presented with chief complaint of left-sided chest pain radiatingup into his shoulder that is worsened with movement of his left arm and palpation. Is no associated shortness of breath diaphoresis nausea vomiting. EKG normal sinus rhythm, heart rate 90, no acute ST-T wave changes Chest x-ray is clear no evidence of Laboratory tests reviewed cardiac enzymes not elevated Patient appears to have musculoskeletal chest wall pain. Patient discharged home. Discharge Prescriptions New Prescriptions IBUPROFEN (MOTRIN) 600 MG TABLET Take 1 Tab by mouth every 8 hours as needed for Pain. MDM Number of Diagnoses or Management Options Atypical chest pain: new, needed workup Musculoskeletal chest pain: new, needed workup Amount and/or Complexity of Data Reviewed Clinical lab tests: ordered and reviewed Tests in the radiology section of CPT??: ordered and reviewed Discussion of test results with the performing providers: yes (radiologist) Independent visualization of images, tracings, or specimens: yes (X-ray, EKG, lab tests) Risk of Complications, Morbidity, and/or Mortality Presenting problems: high Diagnostic procedures: high Management options: moderate General comments: 5 Patient Progress Patient progress: improved 1. Atypical chest pain (786.59AC) 2. Musculoskeletal chest pain (786.59AJ) PCP: DOCTOR KARI MD 10/23/2009 6:54 * Deandre Carlin - 10/21/2009 7646 EDT Blood drawn via saline lock per protocol, rainbow tube(s) sent to lab per order. * Ricki Lockwood - 10/21/2009 1533 EDT 12 Lead EKG Performed by Ricki Lockwood and shown to Aba Salazar MD documented in this encounter Miscellaneous Notes * Scanned Note-Null - Inpatient, Physician - 10/21/2009 0000 EDT * Scanned Note-Null - Inpatient, Physician - 10/21/2009 0000 EDT * Scanned Note-Null - Inpatient, Physician - 10/21/2009 0000 EDT documented in this encounter Plan of Treatment Not on file documented as of this encounter Procedures Procedure Name Priority Date/Time Associated Diagnosis Comments ECG REPORT - SCANNED 10/31/2009 23:57 EDT CHEST PA AND LATERAL STAT 10/21/2009 16:05 EDT PROFILE ED CARDIAC PACK STAT 10/21/2009 15:41 EDT EKG 12-LEAD STAT 10/21/2009 15:33 EDT documented in this encounter Results * ECG REPORT - SCANNED (10/31/2009 23:57 EDT) 10/31/2009 23:5 7 EDT Narrative Procedure Note Inpatient, Physician - 10/21/2009 0:00 EDT Physician Inpatient MD PROCEDURE/MINOR SURGICAL ORDERABLES Final Result * CHEST PA AND LATERAL (10/21/2009 16:05 EDT) Anatomical Region Laterality Modality Other 10/21/2009 16:0 5 EDT 10/21/2009 16:49 EDT Narrative 10/21/2009 16:49 EDT CHEST PA AND LAT Oct 21, 2009 04:05:00 PM Signs and Symptoms/Comments: ??CHEST PAIN Comparison: none available. Findings: The cardiomediastinal silhouette and pulmonary vascularity are within normal limits. The lungs are clear. The bones and soft tissues are demonstrate mild degenerative changes. Impression: Normal chest. Procedure Note 10/21/2009 CHEST PA AND LAT Oct 21, 2009 04:05:00 PM Signs and Symptoms/Comments: CHEST PAIN Comparison: none available. Findings: The cardiomediastinal silhouette and pulmonary vascularity are within normal limits. The lungs are clear. The bones and soft tissues are demonstrate mild degenerative changes. Impression: Normal chest. Aba Salazar MD IMG DIAGNOSTIC IMAGING ORDERA BLES Final Result * (ABNORMAL) PROFILE ED CARDIAC PACK (10/21/2009 15:41 EDT) WBC 7.22 4.0 - 10.4 K/cmm [facility] RBC 4.81 4.36 - 5.78 M/cmm [facility] Hemoglobin 15.6 13.8 - 17.3 gm/dl [facility] HCT 44.4 39.5 - 50.2 % [facility] MCV 92 81 - 95 fl [facility] MCH 32.4 27.6 - 33.0 pg [facility] MCHC 35.1 32.8 - 36.4 gm/dl [facility] PLT 247 141 - 320 K/cmm [facility] RDW-CV 12.9 11.8 - 14.1 % [facility] % Neutrophils 54.9 45.5 - 79.7 % [facility] % Lymphocytes 29.8 15.0 - 46.8 % [facility] % Monocytes 8.9 1.8 - 12.0 % [facility] % Eosinophils 5.5 0.6 - 6.9 % [facility] % Basophils 0.9 0.2 - 1.4 % [facility] ABS Neutrophils 3.96 2.20 - 8.85 K/cmm [facility] ABS Lymphs 2.15 1.09 - 3.30 K/cmm [facility] ABS Monocytes 0.65 0.1 - 0.8 K/cmm [facility] ABS Eosinophils 0.40 0.03 - 0.61 K/cmm [facility] ABS Basophils 0.07 0.01 - 0.11 K/cmm [facility] Type of Diff: Automated [facility] CK 280(H) 0 - 250 U/L [facility] MB 1.6 0 - 5.0 ng/ml [facility] CK-MB Index Not calculated, normal MB. 0 - 2.5 [facility] Sodium 142 136 - 145 mEq/L [facility] Potassium 4.0 3.5 - 5.0 mEq/L [facility] Chloride 101 96 - 110 mEq/L [facility] CO2 32 24 - 32 mEq/L [facility] BUN 15 10 - 26 mg/dl [facility] Creatinine 1.00 0.7 - 1.5 mg/dl [facility] GFR, Calculated >60 ml/min/1. 73m2 [facility] Glucose, Screening 108(H) 70 - 100 mg/dl [facility] Magnesium 2.0 1.7 - 2.8 mg/dl [facility] Pro Time 11.8 9.9 - 13.1 secs [facility] I.N.R. 1.0 0.9 - 1.1 Ratio [facility] Comment: ??Moderate Intensity Coumadin INR = 2.0-3.0 Adjustments in anticoagulant therapy dose should be based upon the INR and NOT the Pro Time. ?? PTT 28 24 - 35 secs [facility] Comment:Therapeutic Heparin range: 60-90 seconds Troponin I pre 2011 <0.05 <0.81 ng/ml [facility] Comment: Reference Range: Normal: ??Less than 0.05 Indeterminate: ??0.05-0.80 Positive: ?? Greater than 0.80 Blood specimen (specimen) 10/21/2009 15:41 EDT 10/21/2009 15:46 EDT us Aba Salazar MD PACKAGES & DNA PROBE ORDERABL ES Final Result [facility] [address] [place] [address] documented in this encounter Visit Diagnoses Diagnosis Atypical chest pain Other chest pain Musculoskeletal chest pain Other chest pain documented in this encounter Orders EKG Orders Without Results Count Last Ordered D ate First Ordered Date EKG 12-LEAD 1 10/21/2009 Nursing Count Last Ordered Date First Orde red Date CARDIAC MONITORING 1 10/21/2009 INSERT PERIPHERAL IV 1 10/21/2009 INSERT SALINE LOCK 1 10/21/2009 OXYGEN THERAPY 1 10/21/2009 PULSE OXIMETRY 1 10/21/2009 documented in this encounter Care Teams Sericulturist Relationship Specialty Start Date End Date Unknown, Provider, PCP - General 10/21/09 12/30/13 documented as of this encounter
--- OUTSIDE RECORDS SUMMARY | 2024-02-11 20:39 | XMS_ITS | Encounter Summary ---
Author Organization [facility] Address [address] [place] [address] Care Team Providers Care Trust Administrative Assistant Name Role Phone Odilon Alejo MD Primary Care Provider [phone] Encounter Details Date Type Department Care Team (Late st Contact Info) Description 03/31/2018 Results Only [facility] [phone] Benedicto Cook MD [address] [place] [phone] Social History Tobacco Use Types Packs/Day Years [...] Procedure Name Priority Date/Time Associated Diagnosis Comments SURGICAL PATHOLOGY Routine 03/31/2018 9:16 EST documented in this encounter Results * SURGICAL PATHOLOGY (03/31/2018 9:16 EST) Pathology Report: SURGICAL PATHOLOGY REPORT Reports generated via electronic interface contain original data; however they are lacking the format of the original report. Caution should be taken when reading/interpret ing unformatted reports. Name: ? CONSTANZA BIRMINGHAM ? Accession #: ? [id number] ? : ? 1980 (Age: 37) ??M ? Collect Date: ? 03/31/2018 ? Location: ? [facility] ? Receive Date: ? 03/31/2018 ? Provider: BENEDICTO COOK MD Copy to: ? Final Pathologic Diagnosis: A. COLON, SIGMOID, POLYPECTOMY: - Hemorrhagic tubulovillous adenoma. - Lesion does not extend to tissue edge. B. RECTUM, BIOPSY: - Rectal mucosa with reparative change. Document reviewed and electronically signed by: MARY COHEN MD Report ??Date: 04/02/2018 11:38 By the signature above, the attending physician certifies that he/she has personally conducted a gross and/or microscopic examination of the described specimens and rendered or confirmed the above diagnosis. Specimen(s) Received: A. ??Sigmoid colon polypectomy B. ??Rectal biopsy Clinical History: Bloody stools; sigmoid polyp, focal area of erythema in rectum Gross Description: A. ?Received in formalin labelled with proper patient identification (initials L, A) and sigmoid colon polyp is a brown polyp (1.0 x 0.6 x 0.5 cm). The specimen is inked, bisected and submitted in A1. B. ?Received in formalin labelled with proper patient identification (initials L, A) and rectal biopsy are two fragments of brown tissue measuring 0.2 x 0.2 x 0.2 cm. The specimens are entirely submitted in B1. MARIA M Farris (ASCP) 04/01/2018 9:57 AM End of Report [facility] 03/31/2018 9:16 EST 03/31/2018 9:16 EST us Benedicto Cook MD PATHOLOGY ORDERABLES Final Res ult [facility] [address] [place] [address] documented in this encounter Visit Diagnoses Not on filedocumented in this encounter Care Teams Trust Administrative Assistant Relationship Specialty Start Date End Date Odilon Alejo MD [address] [place] [address] PCP - General 12/31/13 documented as of this encounter
--- OUTSIDE RECORDS SUMMARY | 2024-02-11 20:39 | XMS_ITS | Encounter Summary ---
Author Organization [facility] Address [address] [place] [address] Care Team Providers Care Electro Winning Operator Name Role Phone Odilon Alejo MD Primary Care Provider [phone] Encounter Details Date Type Department Care Team (Late st Contact Info) Description 12/10/2017 17:42 EDT - 12/10/2017 23:59 EDT Hospital Encounter [facility] [address] [place] [address] Mahendra Yang [address] [place] [address] Discharge Disposition: Auto Discharge Social History Tobacco [...] as of this encounter Discharge Diagnoses Diagnosis M25.522 Pain in left elbow-M25.522[ICD-10-CM] documented in this encounter Medications at Time of Discharge GLUCOSAMINE/TRACEY DROITIN SULF A (GLUCOSAMINE-CHO NDROITIN ORAL) Take by mouth daily. Multivitamins with Minerals tablet Take 1 Tablet by mouth daily. docusate sodium (COLACE) 100 mg capsule Take 1 Cap by mouth daily 40 Cap 0 05/21/2014 0 ibuprofen (MOTRIN) 200 mg tablet Take 200 mg by mouth as needed for Pain 0 naproxen (NAPROSYN) 500 mg tablet Take [...] Disposition Code Departure Means Destination Auto Discharge Home documented in this encounter Plan of Treatment Not on file documented as of this encounter Visit Diagnoses Not on filedocumented in this encounter Care Teams Electro Winning Operator Relationship Specialty Start Date End Date Odilon Alejo MD [address] [place] [address] PCP - General 12/31/13 documented as of this encounter
--- OUTSIDE RECORDS SUMMARY | 2024-02-11 20:39 | XMS_ITS | Encounter Summary ---
[place] [address] Care Team Providers Care Fresco Artist Name Role Phone Marylou Pineda Primary Care Provider [phone] Encounter Details Date Type Department Care Team (Late st Contact Info) Description 09/27/2021 External [place] [address] Diego Carter MD [facility] [place] [address] Social History Tobacco Use Types Packs/Day Years Used Date Smoking Tobacco: Never Smokeless Tobacco: Never Sex and Gender Information Value Date Recorded Sex Assigned at Not on file Gender Identity Not on file Sexual Orientation Not on file documented as of this encounter Plan of Treatment Not on file documented as of this encounter Procedures Procedure Name Priority Date/Time Associated Diagnosis Comments EMG WITH F-WAVE Routine 09/26/2021 documented in this encounter Results * EMG WITH F-WAVE (09/26/2021) Diego Carter MD NEUROLOGY ORDERAB LES documented in this encounter Visit Diagnoses Not on filedocumented in this encounter Care Teams Fresco Artist Relationship Specialty Start Date End Date Marylou Pineda PA [address] [place] [address] PCP - General Family Medicine 08/12/19 documented as of this encounter
--- OUTSIDE RECORDS SUMMARY | 2024-02-11 20:39 | XMS_ITS | Encounter Summary ---
[facility] Organization [facility] [place] [address] Care Team Providers Care Customer Service Engineer Name Role Phone Marylou Pineda Primary Care Provider [phone] Reason for Visit * Reason Onset Date Comments Appointment 07/27/2021 Encounter Details Date Type Department Care Team (Late st Contact Info) Description 07/27/2021 [place]phone [place] [phone] Diego Carter MD [facility] [place] [address] Appointment Social History Tobacco Use Types Packs/Day Years Used Date Smoking Tobacco: Never Smokeless Tobacco: Never Sex and Gender Information Value Date Recorded Sex Assigned at Not on file Gender Identity Not on file Sexual Orientation Not on file documented as of this encounter Miscellaneous Notes * Telephone Encounter - Tyesha Haney - 07/31/2021 9:40 AM EDT Kosta is requesting a call back to reschedule the Autonomic testing EMG that had been scheduled for 07/27/21 * Telephone Encounter - Shayy Maldonado - 07/27/2021 1:07 PM EDT Copied from CRM #[id number]. Topic: Specialty Dept CRMs - Appointment Needed >> Jul 27, 2021 12:05 PM Cherry Gipson wrote: Appt Needed Specialist Dr. Carter Relationship (if other than patient-full name): Kosta Song Appt. Type Needed: Other Reason for Visit: Patient called and states he was unable to make his appointment for a EMG this morning due to illness. Patient states he would like to reschedule. Please call to help re schedule. documented in this encounter Plan of Treatment Not on file documented as of this encounter Visit Diagnoses Not on filedocumented in this encounter Care Teams Customer Service Engineer Relationship Specialty Start Date End Date Marylou Pineda PA [address] [place] [address] PCP - General Family Medicine 08/12/19 documented as of this encounter
--- OUTSIDE RECORDS SUMMARY | 2024-02-11 20:39 | XMS_ITS | Encounter Summary ---
[place] [address] Care Team Providers Care High Man Name Role Phone Marylou Pineda Primary Care Provider [phone] Encounter Details Date Type Department Care Team (Latest Contact Info) Description 06/02/2020 Transcribe Orders Laboratory at [facility] [address] [place] [phone] Paxton Yeung MD [address] [place] [address] Myalgia; Sleep disorder; Vitamin D deficiency; Fatigue, [...] documented as of this encounter Results * (ABNORMAL) Vitamin D, 25-Hydroxy (06/02/2020 1:04 PM EDT) Vitamin D Total 25 OH 17(L) 21 - 100 ng/mL [facility] Vit D Interp Deficient [facility] Blood specimen (specimen) 06/02/2020 1:04 PM EDT 06/02/2020 4:15 PM EDT Narrative Resulting Agency Comment Spec In Lab Paxton Yeung MD CHEMISTRY ORDERABLES [facility] [place] [address] * Syphilis Screening Antibody with reflex RPR (06/02/2020 1:04 PM EDT) Syphilis IgG/IgM Negative Negative [facility] Blood specimen (specimen) 06/02/2020 1:04 PM EDT 06/02/2020 4:15 PM EDT Narrative Resulting Agency Comment Spec In Lab Paxton Yeung MD CHEMISTRY ORDERABLES [facility] [place] [address] * CK (06/02/2020 1:04 PM EDT) Creatine Kinase 123 0 - 200 unit/L [facility] Blood specimen (specimen) 06/02/2020 1:04 PM EDT 06/02/2020 1:53 PM EDT Narrative Resulting Agency Comment Spec In Lab Paxton Yeung MD CHEMISTRY ORDERABLES Performing Organization Address City/[facility]/ZIP Co de Phone Number [facility] [address] [place] [address] * Folate, serum (06/02/2020 1:04 PM EDT) Folate 9.0 4.8 - 24.2 ng/mL [facility] Blood specimen (specimen) 06/02/2020 1:04 PM EDT 06/02/2020 4:15 PM EDT Narrative Resulting Agency Comment Spec In Lab Paxton Yeung MD CHEMISTRY ORDERABLES Performing Organization Address City/[facility]/ZIP Co de Phone Number [facility] [place] [address] * Vitamin B12 (06/02/2020 1:04 PM EDT) Vitamin B12 602 232 - 1,245 pg/mL [facility] Blood specimen (specimen) 06/02/2020 1:04 PM EDT 06/02/2020 4:15 PM EDT Narrative Resulting Agency Comment Spec In Lab Paxton Yeung MD CHEMISTRY ORDERABLES Performing Organization Address City/[facility]/ZIP Co de Phone Number [facility] [place] [address] * Rheumatoid factor, quant (06/02/2020 1:04 PM EDT) Rheumatoid Factor <10 <=14 IU/mL [facility] Blood specimen (specimen) 06/02/2020 1:04 PM EDT 06/02/2020 4:15 PM EDT Narrative Resulting Agency Comment Spec In Lab Paxton Yeung MD CHEMISTRY ORDERABLES Performing Organization Address [facility] Co de Phone Number [facility] [place] [address] * ISIDRA ([facility]/CGP/APD/NLH) (06/02/2020 1:04 PM EDT) ISIDRA Ab Screen Test ?Result ? Flag ??Unit ??RefValue Antinuclear Ab, HEp-2 ? <1:80 (Negative) ? <1:80 (Negative) ??Substrate, S ? ADDITIONAL INFORMATION --------- ?Method: Immunofluorescence using HEp-2 cellular substrate. ?Test Performed by: ?[facility] ?[address] [place] [address] ?Topper Press Operator: Guille Horton M.D. Ph.D.; IA# [id number] [facility] Blood specimen (specimen) 06/02/2020 1:04 PM EDT 06/02/2020 5:15 PM EDT Narrative Resulting Agency Comment Spec In Lab Paxton Yeung MD LAB SEND OUT ORDERAB LES Performing Organization Address [facility] de Phone Number [facility] [address] [facility] [place] [address] * Ferritin (06/02/2020 1:04 PM EDT) [facility] Ferritin 128 30 - 400 ng/mL [facility] Comment: Pediatric reference ranges not verified at [facility], interpret with caution. Reference ranges for females greater than 50 years of age approach values for men, i.e., 30-400 ng/mL. Blood specimen (specimen) 06/02/2020 1:04 PM EDT 06/02/2020 1:53 PM EDT Narrative Resulting Agency Comment Spec In Lab Paxton Yeung MD CHEMISTRY ORDERABLES Performing Organization Address [facility] Co de Phone Number [facility] [address] [facility] [place] [address] * Iron and TIBC (06/02/2020 1:04 PM EDT) Iron 123 45 - 160 mcg/dL [facility] TIBC 325 250 - 450 mcg/dL [facility] Iron Saturation 38 20 - 50 % [facility] Blood specimen (specimen) 06/02/2020 1:04 PM EDT 06/02/2020 1:53 PM EDT Narrative Resulting Agency Comment Spec In Lab Paxton Yeung MD CHEMISTRY ORDERABLES Performing Organization Address [facility] Co de Phone Number [facility] [address] [place] [address] * Magnesium (06/02/2020 1:04 PM EDT) Pathologist [facility] Magnesium 0.90 0.69 - 1.07 mmol/L [facility] Blood specimen (specimen) 06/02/2020 1:04 PM EDT 06/02/2020 1:53 PM EDT Narrative Resulting Agency Comment Spec In Lab Paxton Yeung MD CHEMISTRY ORDERABLES Performing Organization Address [facility] Co de Phone Number [facility] [address] [place] [address] * (ABNORMAL) Sedimentation rate (06/02/2020 1:04 PM EDT) [facility] Sedimentation Rate Automated 34(H) 2 - 28 mm/hr [facility] Blood specimen (specimen) 06/02/2020 1:04 PM EDT 06/02/2020 1:53 PM EDT Narrative Resulting Agency Comment Spec In Lab Paxton Yeung MD HEMATOLOGY ORDERABLE S Performing Organization Address [facility] Co de Phone Number [facility] [address] [place] [address] * Hepatitis C Antibody (06/02/2020 1:04 PM EDT) [facility] Hepatitis C Antibody Negative Negative [facility] Blood specimen (specimen) 06/02/2020 1:04 PM EDT 06/02/2020 4:15 PM EDT Narrative Resulting Agency Comment Spec In Lab Paxton Yeung MD CHEMISTRY ORDERABLES Performing Organization Address [facility] Co de Phone Number [facility] [place] [address] * (ABNORMAL) Comprehensive metabolic panel (non-fasting) (06/02/2020 1:04 PM EDT) Glucose 97 65 - 199 mg/dL [facility] Comment:Diabetes: >=200 mg/d L plus symptoms Blood Urea Nitrogen 15 10 - 20 mg/dL [facility] Creatinine 0.79(L) 0.80 - 1.50 mg/dL [facility] Sodium 137 135 - 145 mmol/L [facility] Potassium 4.3 3.5 - 5.0 mmol/L [facility] Comment: Please note: ??Patients with WBC >100,000 may have falsely elevated Potassium levels. ??For accurate Potassium quantification in these patients send serum separator tube (gold top) for subsequent determinations. ??Contact the Clinical Chemistry Laboratory if there are any questions. Chloride 100 98 - 107 mmol/L [facility] Carbon Dioxide 25 22 - 31 mmol/L [facility] Anion Gap 12 5 - 15 mmol/L [facility] Calcium 9.6 8.5 - 10.5 mg/dL [facility] Protein, Total 7.9 6.1 - 8.0 gm/dL [facility] Albumin 4.5 3.2 - 5.2 gm/dL [facility] Aspartate Aminotransferase 23 0 - 39 unit/L [facility] Alanine Aminotransferase 30 0 - 55 unit/L [facility] Alkaline Phosphatase 74 40 - 130 unit/L [facility] Bilirubin, Total 0.4 0.2 - 1.3 mg/dL [facility] Est Glomerular Filtration Rate 113 >=60 mL/min/1. 73 m?? [facility] Comment: This patient? s estimated glomerular [...] MD CHEMISTRY ORDERABLES Performing Organization Address [facility] Phone Number [facility] [address] [place] [address] * TSH (06/02/2020 1:04 PM EDT) Thyroid Stimulating Hormone 1.68 0.27 - 4.20 mcIU/mL [facility] Blood specimen (specimen) 06/02/2020 1:04 PM EDT 06/02/2020 1:53 PM EDT Narrative Resulting Agency Comment Spec In Lab Paxton Yeung MD CHEMISTRY ORDERABLES Performing Organization Address [facility] Phone Number [facility] [address] [place] [address] * T4, free (06/02/2020 1:04 PM EDT) Free T4 1.09 0.93 - 1.70 ng/dL [facility] Blood specimen (specimen) 06/02/2020 1:04 PM EDT 06/02/2020 1:53 PM EDT Narrative Resulting Agency Comment Spec In Lab Paxton Yeung MD CHEMISTRY ORDERABLES Performing Organization Address [facility] Phone Number [facility] [address] [place] [address] * T3, free (06/02/2020 1:04 PM EDT) Free T3 3.4 2.0 - 4.4 pg/mL [facility] Blood specimen (specimen) 06/02/2020 1:04 PM EDT 06/02/2020 1:53 PM EDT Narrative Resulting Agency Comment Spec In Lab Paxton Yeung MD CHEMISTRY ORDERABLES Performing Organization Address [facility]/ZIP Co de Phone Number [facility] [address] [place] [address] documented in this encounter Visit Diagnoses Diagnosis Myalgia Mylagia and myositis, unspecified Sleep disorder Sleep disturbance, unspecified Vitamin D deficiency Unspecified vitamin D deficiency Fatigue, unspecified type Bone disorder Disorder of bone and cartilage, unspecified documented in this encounter Care Teams High Man Relationship Specialty Start Date End Date Marylou Pineda PA [address] [place] [address] PCP - General Family Medicine 08/12/19 documented as of this encounter
--- OUTSIDE RECORDS SUMMARY | 2024-02-11 20:39 | XMS_ITS | Encounter Summary ---
[place] [address] Care Team Providers Care Belt Press Operator Name Role Phone Marylou Pineda Primary Care Provider [phone] Reason for Visit * Reason Onset Date Comments Bumped Appointment 07/17/2021 Encounter Details Date Type Department Care Team (Late st Contact Info) Description 07/17/2021 Telephone [place] [address] Diego Carter MD [facility] [place] [address] Bumped Appointment Social History Tobacco Use Types Packs/Day Years Used Date Smoking Tobacco: Never Smokeless Tobacco: Never Sex and Gender Information Value Date Recorded Sex Assigned at Not on file Gender Identity Not on file Sexual Orientation Not on file documented as of this encounter Miscellaneous Notes * Telephone Encounter - Krysta Carlton - 07/17/2021 4:22 PM EDT Please warm transfer to Krysta documented in this encounter Plan of Treatment Not on file documented as of this encounter Visit Diagnoses Not on filedocumented in this encounter Care Teams Belt Press Operator Relationship Specialty Start Date End Date Marylou Pineda PA [address] [place] [address] PCP - General Family Medicine 08/12/19 documented as of this encounter
--- OUTSIDE RECORDS SUMMARY | 2024-02-11 20:39 | XMS_ITS | Encounter Summary ---
Author Organization [facility] Address [address] [place] [address] Care Team Providers Care Groundskeeping Maintenance Name Role Phone Odilon Alejo MD Primary Care Provider [phone] Reason for Visit * Reason Comments Knee Pain left Encounter Details Date Type Department Care Team (Late st Contact Info) Description 10/05/2014 9:45 EDT Office Visit [facility] - [address] [address] Hoang Tariq MD [address] [place] [phone] Knee pain, bilateral (Primary Dx); Medial meniscus tear, left, subsequent encounter Discharge Disposition: Auto Discharge Social History Tobacco [...] - Inhaled Oxygen Concentration - - Weight 97.5 kg (215 lb) 10/05/2014 0950 EDT Height 177.8 cm (5' 10) 10/05/2014 0950 EDT Body Mass Index 30.85 10/05/2014 0950 EDT documented in this encounter Discharge Diagnoses Diagnosis 719.46 JOINT PAIN-L/LEG[ICD-9-CM] V58.89 AFTERCARE OTHER SPECIFIED[ICD-9-CM] 836.0 TEAR MED MENISC KNEE-CURRENT[ICD-9-CM] documented in this encounter Discharge Disposition Disposition Code Departure Means Destination Auto Discharge documented in this encounter Progress Notes * Hoang Tariq MD - 10/05/2014 1051 EDT [facility] PROGRESS / FOLLOWUP NOTE - 10/05/2014 PROCEDURE: Right arthroscopic partial medial meniscectomy 05/21/2014. SUBJECTIVE: Kosta comes in today mainly to talk about his left knee. His right knee is doing pretty well. He definitely feels like he benefited from surgery in terms of pain relief. He still has some lingering swelling and is participating in physical therapy. He has had left knee pain for a few years. No history of major injury. He has never had surgery. Pain is medially based with kneeling and bending. He has some swelling and occasional mechanical symptoms. He is now doing therapy on the left as well as the right. OBJECTIVE: Two plus posterior tibial pulse on the left. Sensation grossly intact to light touch in the left leg and foot. No visible atrophy, rashes or deformity around his left knee. He did have a long anterolateral scar related to prior trauma when he fell through stairs. He does not relate this to his current knee problem. Range of motion 0 to 135 degrees. IKDC-A Janiya test, IKDC-A medial and lateral joint opening at 0 and 20 degrees of flexion. IKDC-A posterior drawer. Point tender on themedial joint line and nontender lateral joint line. New weightbearing x-rays demonstrate no significant medial joint space narrowing. MRI 03/16/2014 demonstrates horizontal signal in the posterior aspect of the medial meniscus, very similar to the appearance of the right medial meniscus prior to surgery, but the signal does not clearly extend to the superior or inferior surface and the official report, therefore, states that he does not have a definite tear. ASSESSMENT AND PLAN: I do think his left knee pain is related to medial meniscus pathology. Optionswere discussed, including watchful waiting, NSAID use, therapy and surgery. He would like to try physical therapy, which I think is totally appropriate. He may follow up with me if his symptoms do not respond to therapy and he is considering surgery. Hoang Tariq MD 10 26 AM - Hoang Tariq MD cn Dictation ID: [id number] cc: Fred Arango PA-C, [facility] [address] [place] [address] Odilon Alejo MD, [facility] [address] [address] * Hoang Tariq MD - 10/05/2014 1021 EDT This office note has been dictated. documented in this encounter Plan of Treatment Not on file documented as of this encounter Visit Diagnoses Diagnosis Knee pain, bilateral- Primary Pain in joint, lower leg Medial meniscus tear, left, subsequent encounter documented in this encounter Care Teams Groundskeeping Maintenance Relationship Specialty Start Date End Date Odilon Alejo MD [address] [place] [address] PCP - General 12/31/13 documented as of this encounter
--- OUTSIDE RECORDS SUMMARY | 2024-02-11 20:39 | XMS_ITS | Encounter Summary ---
Author Organization [facility] [place] [address] Care Team Providers Care Carbon Brush Maker Name Role Phone Marylou Pineda Primary Care Provider [phone] Encounter Details Date Type Department Care Team (Late st Contact Info) Description 02/01/2021 Telephone Cardiology at [address] [phone] Mahendra Shay MD [facility] [place] [address] Social History Tobacco Use Types Packs/Day Years [...] on filedocumented in this encounter Care Teams Carbon Brush Maker Relationship Specialty Start Date End Date Marylou Pineda PA [address] [place] [address] PCP - General Family Medicine 08/12/19 documented as of this encounter
--- OUTSIDE RECORDS SUMMARY | 2024-02-11 20:39 | XMS_ITS | Encounter Summary ---
Author Organization [facility] Address [address] [place] [address] Care Team Providers Care Divisional Merchandising Manager Name Role Phone Odilon Alejo MD Primary Care Provider [phone] Encounter Details Date Type Department Care Team (Late st Contact Info) Description 09/17/2018 Orders Only [facility] Cardiology - Main [place] [address] [place] [address] Odilon Alejo MD [address] [place], [place] [id number] Atrial flutter, unspecified type (HCC-CMS) (Primary Dx) Social History Tobacco Use Types [...] Date/Time Associated Diagnosis Comments EXERCISE TOLERANCE TEST WAVEFORM Routine 09/29/2018 14:09 EDT documented in this encounter Results * EXERCISE TOLERANCE TEST WAVEFORM (09/29/2018 14:09 EDT) Anatomical Region Laterality Modality Other 09/29/2018 14:0 9 EDT Narrative 09/29/2018 14:28 EDT For report of this Waveform, see associated Image Study. ? [facility] Stress ? Test Date: ?2018-09-29 Pat Name: ? CONSTANZA BIRMINGHAM ? Department: ? Room: ? Gender: ? Male ? Manager Of Purchasing: ?? : ?1980 ? Requested By: REGGIE Martines Order Number: [id number] ?Mariah LANDRY: ? Interpretive Statements Procedure Note ROAD MACHINE RUNNER, IMAGING - 09/29/2018 For report of this Waveform, see associated Image Study. [facility] Stress Test Date: 2018-09-29 Pat Name: CONSTANZA BIRMINGHAM Department: Room: Gender: Male Manager Of Purchasing: : 1980 Requested By: REGGIE Martines Order Number: [id number] Mariah LANDRY: Interpretive Statements us Odilon Alejo MD CARDIAC SERVICES ORDERABLES Final Result documented in this encounter Visit Diagnoses Diagnosis Atrial flutter, unspecified type (HCC-CMS)- Primary documented in this encounter Care Teams Divisional Merchandising Manager Relationship Specialty Start Date End Date Odilon Alejo MD [address] [place] [address] PCP - General 12/31/13 documented as of this encounter
--- OUTSIDE RECORDS SUMMARY | 2024-02-11 20:39 | XMS_ITS | Encounter Summary ---
Author Organization [facility] Address [address] [place] [address] Care Team Providers Care Billet Recorder Name Role Phone Odilon Alejo MD Primary Care Provider [phone] Encounter Details Date Type Department Care Team (Latest Contact Info) Description 03/31/2018 11:15 EST - 03/31/2018 23:59 EST Hospital Encounter [address] [address] Unknown, Provider, MD Discharge Disposition: Home or Self Care Social [...] on file documented as of this encounter Medications at Time of Discharge [...] Code Departure Means Destination Home or Self Senior Living documented in this encounter Plan of Treatment Not on file documented as of this encounter Visit Diagnoses Not on filedocumented in this encounter Care Teams Billet Recorder Relationship Specialty Start Date End Date Odilon Alejo MD [address] [place] [address] PCP - General 12/31/13 documented as of this encounter
--- OUTSIDE RECORDS SUMMARY | 2024-02-11 20:39 | XMS_ITS | Encounter Summary ---
Author Organization [facility] Address [address] [place] [address] Care Team Providers Care Utility Aircrewman Name Role Phone Odilon Alejo MD Primary Care Provider [phone] Encounter Details Date Type Department Care Team (Late st Contact Info) Description 12/10/2017 Results Only Imaging [facility] [phone] Mahendra Yang, DO [address] [place] [address] Social History Tobacco Use Types Packs/Day Years [...] Priority Date/Time Associated Diagnosis Comments MR EXTREMITY ELBOW WO CONTRAST 12/10/2017 19:24 EDT documented in this encounter Results * MR EXTREMITY ELBOW WO CONTRAST (12/10/2017 19:24 EDT) Anatomical Region Laterality Modality Other 12/10/2017 19:2 4 EDT 12/11/2017 14:32 EDT Narrative 12/11/2017 14:32 EDT MR EXTREMITY LEFT ELBOW WO CONTRAST ??12/10/2017 7:24 PM Signs and Symptoms/Comments: ?? Left elbow pain. Comparison: None. Technique: Routine multiplanar sagittal, coronal, and axial conventional MR images with long and short TR sequences of the left elbow were obtained without contrast administration. Findings: There are moderate degenerative changes in the elbow joint, advanced for age, including areas of chondral thinning primarily in the radiocapitellar compartment, also with osteophyte formation at the periphery of the renal capitellar and ulnar trochlear compartments and in the proximal radioulnar joint. There is also some irregularity and spurring along the olecranon and coronoid processes of the ulna. There are mild findings of associated synovitis. No erosive changes are present. Minimal fluid in the joint outlines tiny intra-articular bodies. The lateral ligamentous complex about the elbow appears intact including the radial collateral ligament and the lateral ulnar collateral ligament. The annular ligament also appears intact. The medial ligamentous complex about the elbow appears intact including the anterior and posterior bands of the ulnar collateral ligament The common extensor tendon group appears grossly intact without evidence of significant tendinosis or tear. The common flexor tendon group appears grossly intact without evidence of significant tendinosis or tear. The biceps, brachialis, and triceps muscles and tendons appear intact. The visualized portions of the ulnar, median and radial nerves appear normal. No joint effusion or extra-articular fluid collections seen. No evidence of olecranon bursitis. No evidence of bicipitoradial (cubital) bursitis. Impression: 1. 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 Please correlate for any corresponding history of trauma. No ligament ot tendon tear seen. ?? I have personally reviewed the images and the above interpretation and agree with the findings. Procedure Note Stephen Toney MD - 12/11/2017 MR EXTREMITY LEFT ELBOW WO CONTRAST 12/10/2017 7:24 PM Signs and Symptoms/Comments: Left elbow pain. Comparison: None. Technique: Routine multiplanar sagittal, coronal, and axial conventional MR images with long and short TR sequences of the left elbow were obtained without contrast administration. Findings: There are moderate degenerative changes in the elbow joint, advanced for age, including areas of chondral thinning primarily in the radiocapitellar compartment, also with osteophyte formation at the periphery of the renal capitellar and ulnar trochlear compartments and in the proximal radioulnar joint. There is also some irregularity and spurring along the olecranon and coronoid processes of the ulna. There are mild findings of associated synovitis. No erosive changes are present. Minimal fluid in the joint outlines tiny intra-articular bodies. The lateral ligamentous complex about the elbow appears intact including the radial collateral ligament and the lateral ulnar collateral ligament. The annular ligament also appears intact. The medial ligamentous complex about the elbow appears intact including the anterior and posterior bands of the ulnar collateral ligament The common extensor tendon group appears grossly intact without evidence of significant tendinosis or tear. The common flexor tendon group appears grossly intact without evidence of significant tendinosis or tear. The biceps, brachialis, and triceps muscles and tendons appear intact. The visualized portions of the ulnar, median and radial nerves appear normal. No joint effusion or extra-articular fluid collections seen. No evidence of olecranon bursitis. No evidence of bicipitoradial (cubital) bursitis. Impression: 1. 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 Please correlate for any corresponding history of trauma. No ligament ot tendon tear seen. I have personally reviewed the images and the above interpretation and agree with the findings. Mahendra Yang DO [facility] [place] [facility] ORDERABLES Final Result documented in this encounter Visit Diagnoses Not on filedocumented in this encounter Care Teams Utility Aircrewman Relationship Specialty Start Date End Date Odilon Alejo MD [address] [place] [address] PCP - General 12/31/13 documented as of this encounter
--- OUTSIDE RECORDS SUMMARY | 2024-02-11 20:39 | XMS_ITS | Encounter Summary ---
Author Organization [facility] Address [facility] [place] [address] Care Team Providers Care Wort Extractor Name Role Phone Marylou Pineda Primary Care Provider [phone] Encounter Details Date Type Department Care Team (Late st Contact Info) Description 11/30/2021 3:00 PM EDT TH Visit (TeleHealth) [place] [address] Diego Carter MD [facility] [place] [address] POTS (postural orthostatic tachycardia syndrome) Social History Tobacco Use Types Packs/Day Years Used Date Smoking Tobacco: Never Smokeless Tobacco: Never Sex and Gender Information Value Date Recorded Sex Assigned at Not on file Gender Identity Not on file Sexual Orientation Not on file documented as of this encounter Progress Notes * Diego Carter MD - 11/30/2021 3:00 PM EDT Kosta Song is a 41 y.o. man who is a patient of MARIA M Medina referred by Dr Cox forevaluation of POTS. This is a telehealth visit rather than in person due to the COVID pandemic and risk of community transmission. The patient reports he developed tachycardia and palpitations in January 2018. There is no clear preceding event. He developed exercise intolerance and orthostatic intolerance. His heart rate might go up to 150 or 160 with little provocation. He had a stress test in 2019. It was normal, except he reached a high heart rate fairly quickly. Per report although I do not have access to the primary records he had normal echo and rhythm strips. He had COVID last year. He was hospitalized and pretty sick. His symptoms got drastically worse after that. If he walks his heart rate might go up to 120/130. If he stands still it might go as high as 160. He feels chest pain and palpitations and shortness of breath. At some point he was put on metoprolol. He feels it does help a little. He has been seeing Lyme specialists. He has seen 2 at this point. He took antibiotics. However when he was hospitalized for COVID he stopped the antibiotics did not get any worse so we did not restart it. Later he saw a different Lyme doctor that thought he might have a problem with mold. He is going to move houses now. He also has insomnia, depression, and anxiety. He says he has seen a therapist fairly regularly butis still bothered by this. He was on medication in the past but now is not. He did not find them pleasant from a tolerance perspective but I am not sure exactly what he tried. He lives with his 16-year-old son. He does not have any similar symptoms. He is no longer working due to his health issues. On autonomic review of systems he reports normal urination and bowel function. He does have brain fog and chronic fatigue. He denies dry eyes or dry mouth. He does sweat a lot. He goes out in shorts and 50 degree weather and sweats a lot even with minimal activity. He has not done physical therapy in quite a long time. He has chronic joint pains as well. We performed autonomic testing 2 months ago. I reviewed those results. He had a hyperdynamic phase 4 overshoot during Valsalva and had excessive orthostatic tachycardia without orthostatic hypotension, all consistent with a diagnosis of POTS. He was actually on metoprolol during the test. He did have cardiovagal dysfunction, but this is difficult to interpret on metoprolol. In summary, this is a 41-year-old man with exercise intolerance, orthostatic intolerance, chronic fatigue, concentration issues, and tachycardia all consistent with a diagnosis of POTS. I am not sure if he might also have a superimposed condition such as hypermobility spectrum disorder, Sjogren's disease, etc. If his doctor has not checked ISIDRA and more importantly Sjogren's antibodies that would be reasonable, though it is unlikely probably. I discussed POTS at length. Unfortunately we really do not know the cause for the most part though there are plenty of hypotheses. I discussed pharmacologic and nonpharmacologic treatments. I recommended the following nonpharmacologic treatments: These symptoms are at least partially related to not enough blood flow to the brain. We need to try to increase blood flow to the brain, and blood volume. There are both drugs/pharmacologic treatments and nonpharmacologic treatments: Water: Have at least 2-3 L of fluid per day. Caffeine and alcohol do not count. Salt: Have at least 4-6 g of salt per day. Usually you need salt tablets, aggressive salting of foods, and eating of salty snacks to get this much Exercise: many patients benefit from a graduated exercise program, starting very slow. [employer] physical therapy or exercise and you should be able to find the CH[facility]/modified Wilfredo/modified Hoover protocol, which is a good start. I sent him the actual link in the chat. Compression: We recommend compression of the thighs and abdomen. This can take the form of waist high compression garments, but these can be hard to wear. At the least I would try an abdominal binder(like a corset) and compression shorts (like spanks), or thigh high compression to prevent pooling in the abdomen and thighs. I discussed with him that other potential good options pharmacologically if the above do not work include changing metoprolol to propranolol. There is decent evidence at low-dose such as 10 mg twice daily to 20 mg twice daily, and there may be some more TAP AND DIE MAKER TECHNICIAN penetration with propranolol to explain why it could be more efficacious than other beta-blockers though in truth there is not great high-quality evidence. Corlanor may also be a good option which she can discuss with his food service manager I often use midodrine 5 mg twice daily (a.m. and noon), fludrocortisone 100 mcg in the morning or 200 mcg in the morning, or pyridostigmine 30 to 60 mg 3 times daily these can also be effective. He will discuss this with his PCP and food service manager and consider them after he exhaust the above nonpharmacologic treatments. Meanwhile, and POTS, post-COVID syndrome, and a number of other conditions the greatest predictors of poor quality life or actually depressive symptoms. I think would be reasonable to try antidepressants for this reason. TCAs can be effective for the pain and sleep if he has not tried those. I often start low- dose such as 10 mg of nortriptyline or amitriptyline and increase as needed as toleratedup to 30 to 50 mg. Cymbalta is another option that can help with pain as well as mood. He had all of his questions answered. We talked at length about chronic Lyme. I would not suggest additional antibiotics in the absence of a positive Lyme test. If his doctor has not checked a TSH for Lyme antibody I would suggest that be done. I will not schedule follow-up but would be happy to see him again if I can be helpful in the future. We spent 45 minutes in consultation, including record review and documentation. Diego Carter MD 11/30/2021 Microbiology Technologist General Neurology and Clinical Neurophysiology [facility] Department of Neurology documented in this encounter Plan of Treatment Not on file documented as of this encounter Visit Diagnoses Diagnosis POTS (postural orthostatic tachycardia syndrome) Tachycardia, unspecified documented in this encounter Care Teams Wort Extractor Relationship Specialty Start Date End Date Marylou Pineda PA [address] [place] [id number] PCP - General Family Medicine 08/12/19 documented as of this encounter
--- OUTSIDE RECORDS SUMMARY | 2024-02-11 20:39 | XMS_ITS | Encounter Summary ---
Author Organization [facility] Address [address] [place] [address] Care Team Providers Care Hide Spreader Name Role Phone Odilon Alejo MD Primary Care Provider [phone] Reason for Visit * Reason Comments Post-OP Follow Up Encounter Details Date Type Department Care Team (Late st Contact Info) Description 05/26/2014 11:30 EDT Post-op Visit [facility] Medicine Program - [address] [address] Hoang Tariq MD [address] [place] [phone] Medial meniscus tear (Primary Dx) Social History Tobacco Use Types [...] as of this encounter Progress Notes * Hoang Tariq MD - 05/26/2014 1308 EDT [facility] SP[facility]ICINE PRO[facility] PROGRESS / FOLLOWUP NOTE - 05/26/2014 PROCEDURE: Right arthroscopic partial medial meniscectomy 05/21/2014. SUBJECTIVE: Kosta is seen for scheduled followup in postoperative PT clinic. He reports no postoperative problems that are unanticipated. OBJECTIVE: Portal sites clean, dry and intact. Minimal knee effusion. Right calf soft and nontender. ASSESSMENT: Satisfactory postoperative course. PLAN: Physical therapy per protocol. Follow up in 6 to 8 weeks. Hoang Tariq MD 12 41 PM - Hoang Tariq MD en Dictation ID: [id number] cc: Odilon Alejo MD, [address] [address] * Hoang Tariq MD - 05/26/2014 1240 EDT This office note has been dictated. documented in this encounter Plan of Treatment Not on file documented as of this encounter Visit Diagnoses Diagnosis Medial meniscus tear- Primary Tear of medial cartilage or meniscus of knee, current documented in this encounter Care Teams Hide Spreader Relationship Specialty Start Date End Date Odilon Alejo MD [address] [place] [id number] PCP - General 12/31/13 documented as of this encounter
--- OUTSIDE RECORDS SUMMARY | 2024-02-11 20:39 | XMS_ITS | Encounter Summary ---
Author Organization [facility] Address [facility] [place] [address] Care Team Providers Care High Lead Yarder Name Role Phone Marylou Pineda Primary Care Provider [phone] Reason for Visit * Consultation (Routine) - Closed Specialty Diagnoses / Procedures Referred By Contact Referred To Contact Electrophysiology / Cardiology Diagnoses Tachycardia Autonomic testing consistent w/ POTS. EP eval re: further potential med - possibly ivabradine Ramila Sanchez MD [address] [place], [place] [address] [place] [address] [address] [place] [id number] Referral ID Status Reason Start Date Expiration Date V isits Requested Visits Authorized [id number] Closed Consult, Test & Treat PCP Updated and/or Approved 10/25/2021 10/25/2022 6 6 Encounter Details Date Type Department Care Team (Late st Contact Info) Description 07/10/2022 3:00 PM EDT Office Visit Cardiology at [address] [phone] Piter Pratt MD [facility] [place] [address] Ya Jang MD Tachycardia (Primary Dx); POTS (postural orthostatic tachycardia syndrome) Social History Tobacco Use Types Packs/Day Years Used Date Smoking Tobacco: Never Smokeless Tobacco: Never Sex and Gender Information Value Date Recorded Sex Assigned at Not on file Gender Identity Not on file Sexual Orientation Not on file documented as of this encounter Last Filed Vital Signs Vital Sign Reading Time Taken Comments Blood Pressure 144/80 07/10/2022 3:24 PM EDT Pulse 75 07/10/2022 3:24 PM EDT Temperature - - Respiratory Rate - - Oxygen Saturation 99% 07/10/2022 3:24 PM EDT Inhaled Oxygen Concentration - - Weight 111.1 kg (245 lb) 07/10/2022 3:24 PM EDT Height 176.5 cm (5' 9.5) 07/10/2022 3:24 PM EDT Body Mass Index 35.66 07/10/2022 3:24 PM EDT documented in this encounter Progress Notes * Ya Jang MD - 07/10/2022 3:00 PM EDT [facility] [place] [address] ELECTROPHYSIOLOGY OUTPATIENT NOTE REFERRING PROVIDER: Ramila Sanchez PROBLEM LIST: Patient Active Problem List Diagnosis Code Palpitations R00.2 Precordial pain-- likely noncardiac R07.2 POTS (postural orthostatic tachycardia syndrome) G90.A MEDICATIONS: Current Outpatient Medications Medication Sig Dispense Refill calcium carbonate/vitamin D3 (VITAMIN D-3 ORAL) Take by mouth daily. VITAMIN B COMPLEX ORAL Take by mouth daily. chlorel/chloroph/D3/B2/FA/iron (CHLORELLA CAPS ORAL) Take by mouth daily. minerals (MULTIMINERAL PLUS ORAL) Take by mouth daily. ACTIVATED CHARCOAL ORAL Take by mouth daily. BENTONITE MISC by [facility].(Non-Drug; Combo Route) route daily. metoprolol succinate XL (Toprol-XL) 100 mg Tablet Sustained Release 24 hr Take 100 mg by mouth daily. multivitamin with minerals and lutein Tablet 0 Refill(s) omeprazole (PriLOSEC) 40 mg Capsule, Delayed Release(E.C.) Take 40 mg by mouth daily. No current facility-administered medications for this visit. Subjective: Patient ID: Kosta Song is a 41 y.o. male who presents to discuss POTS. HPI Mr. Song is a 41 y/o man with a history of non-cardiac chest pain taht was extensively evalautedin 2019 with an echo, ETT, Holter monitor, event monitor, and a coronary CTA. Workup is best summarize in Dr. Shay' note on 08/17/2019. More recently, he has noted a rapid heart rate that first started in 2018 without clear preceding event. He has been extensively evaluated by his outpatient instructor nurse and Dr. Carter where he was diagnosed POTS. He had previously been seeing Lyme specialists and taking multiple trials of antibiot ics. He notices fatigue and fast HRs, occasional lightheadedness. Sometimes his symptoms are so severe he has to lay down for most of the day. His symptoms had previously been doing much worse, but has been doing better for the last month. He has been drinking about a gallon of water a day. Gets a regular amount of salt in his diet. No abdominal or leg binders. He does not exercise. He notes that whenhe tries to exercise he will last a few days before his joints all hurt. He continues on metoprololsuccinate 100mg QD regularly, he does feel like it helps. He does notice a difference when he does not take the medicine. He currently is working on a mold therapy as his Lyme doctor noted high levels of mold. He moved his living location and has been taking mold treatments including activated charcoal which have been helping. Family history: No family history of premature heart disease or SCD. Social history: Tobacco: smoked 1 ppd, quit in 2011 Occupational history: currently not working Objective: Vitals: 07/10/22 1524 BP: 144/80 BP Location (NBP): Left arm Patient Position: Sitting BP Cuff Sizes: Adult (25-34 cm) Pulse: 75 SpO2: 99% Weight: 111.1 kg (245 lb) Height: 176.5 cm (5' 9.5) Physical Exam Constitutional: Appearance: Normal appearance. Cardiovascular: Rate and Rhythm: Normal rate and regular rhythm. Pulmonary: Effort: Pulmonary effort is normal. No respiratory distress. Musculoskeletal: Right lower leg: No edema. Left lower leg: No edema. Neurological: General: No focal deficit present. Mental Status: He is alert and oriented to person, place, and time. ECG today NSR, normal EKG. Assessment POTS (postural orthostatic tachycardia syndrome) Mr. Song presents for follow up for POTS, diagnosed in neurology clinic here. Doing much better over the past month or so. He continues with non-pharmacologic measures. I did encourage him to exercise more which he is going to try and start doing. We discussed further medical options, including an increased dose of metoprolol or the initiation of ivabradine, but he prefers to try natural therapies first which is more than reasonable. Plan: - continue non-pharmacologic measures, including exercise - could consider increasing metoprolol dose or ivabradine initiation if he was interested Patient seen and discussed with Dr. Pratt. Ya Jang MD 07/10/2022 I met with the patient today and independently confirmed the history, physical exam, and testing. Ipersonally reviewed and interpreted the available ECGs and additional cardiac testing (echo), as well as the labs. I agree with the detailed management plan as written in the fellow note today. I discussed this plan with the patient, who is also in agreement. These notes are in addition to the history, exam and plan that I reviewed in detail, listed above: Mr. Song, Dr. Jang and I spoke at length about POTS, his symptoms and potential therapies. Currently, he is not interested in pursuing pharmacologic therapy. We reviewed non-pharmacologic therapies, which he appreciated. I encouraged him to follow up in EP clinic as needed, which is his preference. Dr. Piter Pratt, electrophysiology attending ([id number]) documented in this encounter Miscellaneous Notes * Assessment & Plan Note - Ya Jang MD - 07/10/2022 3:57 PM EDT Associated Problem(s): POTS (postural orthostatic tachycardia syndrome) Mr. Song presents for follow up for POTS, diagnosed in neurology clinic here. Doing much better over the past month or so. He continues with non-pharmacologic measures. I did encourage him to exercise more which he is going to try and start doing. We discussed further medical options, including an increased dose of metoprolol or the initiation of ivabradine, but he prefers to try natural therapies first which is more than reasonable. documented in this encounter Plan of Treatment Not on file documented as of this encounter Procedures Procedure Name Priority Date/Time Associated Diagnosis Comments EKG 12-LEAD Routine 07/10/2022 3:38 PM EDT Tachycardia documented in this encounter Results * EKG 12 Lead (07/10/2022 3:38 PM EDT) Ventricular rate 72 BPM MUSE SYSTEM Atrial Rate 72 BPM MUSE SYSTEM P-R Interval 138 ms MUSE SYSTEM QRS Duration 92 ms MUSE SYSTEM Q-T Interval 392 ms MUSE SYSTEM QTC Calculated (Bezet) 429 ms MUSE SYSTEM Calculated P [place] 16 degrees MUSE SYSTEM Calculated R [place] 23 degrees MUSE SYSTEM Calculated T [place] 13 degrees MUSE SYSTEM INTERPRETATION Normal sinus rhythm Normal ECG When compared with ECG of 17-AUG-2019 10:09, No significant change was found Confirmed by MD Escamilla Danette ([id number]) on 07/11/2022 4:44:45 PM MUSE SYSTEM 07/10/2022 3:38 PM EDT 07/11/2022 4:44 PM EDT Piter Pratt MD ECG ORDERABLES MUSE SYSTEM documented in this encounter Visit Diagnoses Diagnosis Tachycardia- Primary Tachycardia, unspecified POTS (postural orthostatic tachycardia syndrome) Tachycardia, unspecified documented in this encounter Care Teams High Lead Yarder Relationship Specialty Start Date End Date Marylou Pineda PA [address] [place] [id number] PCP - General Family Medicine 08/12/19 documented as of this encounter
--- OUTSIDE RECORDS SUMMARY | 2024-02-11 20:39 | XMS_ITS | Encounter Summary ---
Author Organization [facility] Address [address] [place] [address] Care Team Providers Care Top Distribution Executive Name Role Phone Odilon Alejo MD Primary Care Provider [phone] Reason for Visit * Reason Comments Knee Pain bilateral Encounter Details Date Type Department Care Team (Late st Contact Info) Description 04/20/2014 9:00 EDT Office Visit [facility] Sports Medicine Program - [address] [address] Hoang Tariq MD [address] [place] [phone] Medial meniscus tear (Primary Dx) Discharge Disposition: Auto Discharge Social History Tobacco [...] - - Weight 104.3 kg (230 lb) 04/20/2014 0908 EDT Height 177.8 cm (5' 10) 04/20/2014 0908 EDT Body Mass Index 33 04/20/2014 0908 EDT documented in this encounter Discharge Diagnoses Diagnosis 719.46 JOINT PAIN-L/LEG[ICD-9-CM] documented in this encounter Discharge Disposition Disposition Code Departure Means Destination Auto Discharge documented in this encounter Progress Notes * Hoang Tariq MD - 04/20/2014 1743 EDT [facility] SPORTS MEDICINE PROGRAM PROGRESS / FOLLOWUP NOTE - 04/20/2014 PROBLEM: Bilateral knee pain. HISTORY OF PRESENT ILLNESS: Gvlixu-cstmp-xcxl-old male with chronic bilateral knee pain. Currently,the right is more symptomatic than the left, but in the past, the left has been more symptomatic. He has had pain for years. Mr Arango's note suggests that he has had pain dating back to childhood. He denies any history of trauma to either knee. On the right, his complaint is that his right knee does not bend the way, and he has stiffness and soreness. He has swelling at the end of the day when he has been on his feet for a long period of time. Pain is mainly on the inside of the knee, and he has occasional mechanical symptoms including clicking and catching. His symptoms on the left are basically the same, but not as severe. He thinks that he has taken NSAIDs in the past, but does not remember exactly what medication was prescribed. This was months ago. He has had no injections. He states he has done no physical therapy, but Mr Arango's note suggests that he has done therapy in the past. He has not tried a brace. 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 He does not smoke cigarettes. Additional past medical history, past surgical history, medications, allergies, social history, andfamily history are documented in PRISM. OBJECTIVE: He was alert and came alone. His BMI is documented in PRISM. His gait was not formally evaluated. Two plus posterior tibial pulses bilaterally. Sensation grossly intact to light touch in both legs and feet. On the right, no visible atrophy, scars, rashes or deformity around his right knee. Range of motion 0 to 135 degrees passively with pain at full passive flexion on the medial aspectof the knee. IKDC-A Janiya test. IKDC-A medial and lateral joint opening at 0 and 20 degrees of flexion. IKDC-A posterior drawer. Point tender on the medial joint line, nontender over the lateral joint line. Pain medially with Anuj's maneuver. He has not undergone any x-rays of his right knee. Physical examination of the left knee was exactly the same as the right except that he had no medial joint line tenderness. DIAGNOSTIC DATA: X-rays of the left knee 01/01/2014 and 06/29/2013 demonstrate no bony abnormalities. MRI of the right knee 03/16/2014 demonstrates a horizontal cleavage medial meniscus tear. No other significant abnormalities. MRI of the left knee shows a horizontal signal in the posterior aspect of the medial meniscus, similar to that seen on the right, but it does not clearly extend to either the superior or inferior surface, so this is not conclusively a tear. No other major structural abnormalities seen. ASSESSMENT AND PLAN: Nrmmci-jkojo-hsjb-old male with bilateral chronic knee pain. His history, physical examination and imaging on the right are consistent with a symptomatic medial meniscus tear. Onthe left, it is not as clear to me what the source of his pain is. His pain is much less focal, andhis pain may be related to low-grade chondral wear and overuse combined with being overweight. I discussed treatment options for his right knee including watchful waiting, physical therapy, injectiontherapy, anti-inflammatory medication and surgery. He has elected to pursue surgery. Plan is arthroscopic medial meniscectomy. Risks were discussed including infection, bleeding, nerve injury, skin numbness, blood clots, medical complications, need for additional surgery, stiffness, arthrosis, incomplete pain relief and incomplete return of function. With regard to his left knee, I do not see a role for surgery at this time and discussed other nonoperative treatment. Surgery will be scheduled electively for his right knee. He will also undergo new x-rays of his right knee today. Hoang Tariq MD 09 42 AM - Hoang Tariq MD en Dictation ID: [id number] cc: Fred Arango PA-C, [facility] [address] [place] [id number] Odilon Alejo MD, [facility] [address], [place] [address] * Cher Coleman - 04/20/2014 1006 EDT Patient Education Topic: Preop for right knee arthroscopy/partial medial menisectomy 05/20/14 Method: Handout and Verbal Taught to: Patient Barriers: None Outcomes: verbalized understanding Patient Education items provided at today's visit: - Dr. Tariq' things to do sheet with pertinent dates, times, and contact numbers. - Pre-op Physical Packet - Patient Worksheet for pre-op phone call - Pre-op Advice - Dept. Of Anesthesia Consent Form (copy) - Surgery specific post-op information sheet -What to expect as an outpatient surgical patient -[facility] Info -Fasting Instructions Signature: Cher Coleman LPN * Hoang Tariq MD - 04/20/2014 0943 EDT This office note has been dictated. documented in this encounter Miscellaneous Notes * Addendum Note - Cher Coleman - 04/20/2014 1008 EDTAddended by: CHER COLEMAN on: 04/20/2014 10:08 Modules accepted: Medications documented in this encounter Plan of Treatment Not on file documented as of this encounter Visit Diagnoses Diagnosis Medial meniscus tear- Primary Tear of medial cartilage or meniscus of knee, current documented in this encounter Care Teams Top Distribution Executive Relationship Specialty Start Date End Date Odilon Alejo MD [address] [place] [address] PCP - General 12/31/13 documented as of this encounter
--- OUTSIDE RECORDS SUMMARY | 2024-02-11 20:39 | XMS_ITS | Encounter Summary ---
Author Organization [facility] [place] [address] Care Team Providers Care Client Success Director Name Role Phone Marylou Pineda Primary Care Provider [phone] Reason for Visit * Consultation (Urgent) - Closed Specialty Diagnoses / Procedures Referred By Contac t Referred To Contact Neurology Diagnoses Postural orthostatic tachycardia syndrome Orthostatic hypotension Geraldo Cox MD [address] [place] [address] [place] [address] [facility] [address] [place] [address] Referral ID Status Reason Start Date Expiration Date V isits Requested Visits Authorized [id number] Closed Consult, Test & Treat 03/30/2021 03/30/2022 1 1 Encounter Details Date Type Department Care Team (Late st Contact Info) Description 09/26/2021 10:00 AM EDT Procedure [place] [address] Diego Carter MD [facility] [place] [address] POTS (postural orthostatic tachycardia syndrome) Social History Tobacco Use Types Packs/Day Years Used Date Smoking Tobacco: Never Smokeless Tobacco: Never Sex and Gender Information Value Date Recorded Sex Assigned at Not on file Gender Identity Not on file Sexual Orientation Not on file documented as of this encounter Progress Notes * Diego Carter MD - 09/26/2021 10:00 AM EDT Kosta Song is a patient of MARIA M Medina referred by Dr. Cox for autonomic testing given tachycardia and question of dysautonomia. The complete findings will be reported elsewhere (see scanned documents). Briefly, QSART showed normal sweat volume at all four sites, with no evidence of sudomotor dysfunction. Heart rate variability during deep breathing was reduced, consistent with cardiovagal dysfunction. HR ratio during Valsalva was normal. Vchy-le-jqaq BP response during the Valsalva maneuver demonstrated normal waveforms without evidence of vasomotor dysfunction. There was a hyperdynamic phase IV overshoot. Orthostatic vital signs with active standing were abnormal due to sustained excessive orthostatic tachycardia without OH. In summary, these results are abnormal due to excessive orthostatic tachycardia, which in the rightclinical context is consistent with the syndrome of POTS. Cardiovagal dysfunction is noted, which could be related to metoprolol use or an underlying issue. There is no additional evidence of autonomic neuropathy or autonomic dysfunction. Patient has upcoming appointment to place results in clinical context. Diego Carter MD 09/26/2021 * Please note, this note was dictated using [employer] software. While it was reviewed for accuracy, please excuse any typographical errors that were missed. documented in this encounter Plan of Treatment Scheduled Referrals Name Type Priority Associated Diagnoses Orde r Schedule Referral to Neurology Outpatient Referral Routine Postural orthostatic tachycardia syndrome Orthostatic hypotension Ordered: 03/30/2021 documented as of this encounter Visit Diagnoses Diagnosis POTS (postural orthostatic tachycardia syndrome) Tachycardia, unspecified documented in this encounter Care Teams Client Success Director Relationship Specialty Start Date End Date Marylou Pineda PA [address] [place] [id number] PCP - General Family Medicine 08/12/19 documented as of this encounter
--- OUTSIDE RECORDS SUMMARY | 2024-02-11 20:39 | XMS_ITS | Encounter Summary ---
Author Organization [facility] Address [address] [place] [address] Care Team Providers Care Housing Assistant Name Role Phone Odilon Alejo MD Primary Care Provider [phone] Encounter Details Date Type Department Care Team (Latest Contact Info) Description 03/16/2014 8:22 EST - 03/16/2014 23:59 EST Hospital Encounter [facility] [place] [address] [place] [address] Jamil Arriaza MD [address] [place] [phone] Discharge Disposition: Home or Self Care Social [...] as of this encounter Discharge Diagnoses Diagnosis V72.5 RADIOLOGICAL EXAM NEC[ICD-9-CM] documented in this encounter Medications at Time of Discharge GLUCOSAMINE/CHOND ROITIN SULF A (GLUCOSAMINE-TRACEY DROITIN ORAL) Take by mouth daily. ibuprofen (MOTRIN) 600 mg tablet Take 1 Tab by mouth every 8 hours as needed for Pain. 20 Tab 0 10/21/2009 05/21/2014 documented as of this encounter Discharge Disposition Disposition Code Departure Means Destination Home or Self Snf documented in this encounter Plan of Treatment Not on file documented as of this encounter Visit Diagnoses Not on filedocumented in this encounter Care Teams Housing Assistant Relationship Specialty Start Date End Date Odilon Alejo MD [address] [place] [address] PCP - General 12/31/13 documented as of this encounter
--- OUTSIDE RECORDS SUMMARY | 2024-02-11 20:39 | XMS_ITS | Encounter Summary ---
Author Organization [facility] Address [facility] [place] [address] Care Team Providers Care Trouble Shooting Mechanic Name Role Phone Marylou Pineda Primary Care Provider [phone] Encounter Details Date Type Department Care Team (Late st Contact Info) Description 02/01/2021 Telephone Cardiology at [address] [phone] Mahendra Shay MD [facility] [place] [address] Social History Tobacco Use Types Packs/Day Years Used Date Smoking Tobacco: Never Smokeless Tobacco: Never Sex and Gender Information Value Date Recorded Sex Assigned at Not on file Gender Identity Not on file Sexual Orientation Not on file documented as of this encounter Miscellaneous Notes * Telephone Encounter - Mahendra Shay MD - 02/01/2021 10:04 AM EST I tried to reach Dr. Alejo at his office in [place]. He is not in today. I will reach out to him by email and I gave his nurse my email as well. BWA * Telephone Encounter - Mahendra Shay MD - 02/01/2021 10:04 AM EST ----- Message from Karli Olson sent at 01/02/2021 1:26 PM EST ----- Regarding: called for you Dr. Campo called for you from [facility] and said it wasn't an emergency but wants you to call him. He hung up before I could get the # from him. I'm hoping you know who it is. Karli CHAUDHARI documented in this encounter Plan of Treatment Not on file documented as of this encounter Visit Diagnoses Not on filedocumented in this encounter Care Teams Trouble Shooting Mechanic Relationship Specialty Start Date End Date Marylou Pineda PA [address] [place] [address] PCP - General Family Medicine 08/12/19 documented as of this encounter
--- OUTSIDE RECORDS SUMMARY | 2024-02-11 20:39 | XMS_ITS | Encounter Summary ---
[place] [address] Care Team Providers Care Information Technology Technician Name Role Phone Marylou Pineda Primary Care Provider [phone] Reason for Referral * Diagnostic Test (Routine) - Closed Specialty Diagnoses / Procedures Referred By Contac t Referred To Contact Cardiology Diagnoses Tachycardia Procedures Mobile Geraldo Martinez MD [address] [place] [address] [facility] [place] [address] Referral ID Status Reason Start Date Expiration Date V isits Requested Visits Authorized [id number] Closed Specialty Service Requested 05/12/2021 05/12/2022 1 1 Reason for Visit * Diagnostic Test (Routine) - Closed Specialty Diagnoses / Procedures Referred By Contac t Referred To Contact Cardiology Diagnoses Tachycardia Procedures Mobile Geraldo Martinez MD [address] [place] [address] [facility] [place] [address] Referral ID Status Reason Start Date Expiration Date V isits Requested Visits Authorized [id number] Closed Specialty Service Requested 05/12/2021 05/12/2022 1 1 Encounter Details Date Type Department Care Team (Latest Contact Info) Description 05/12/2021 4:17 PM EDT - 05/12/2021 11:59 PM EDT Hospital Encounter [place] [address] Geraldo Cox MD [address] [place] [address] Tachycardia Discharge Disposition: Home Social History Tobacco Use Types Packs/Day Years Used Date Smoking Tobacco: Never Smokeless Tobacco: Never Sex and Gender Information Value Date Recorded Sex Assigned at Not on file Gender Identity Not on file Sexual Orientation Not on file documented as of this encounter Medications at Time of Discharge Medication Sig Dispensed Refills Start Date End Date metoprolol succinate XL (Toprol-XL) 100 mg Tablet Sustained Release 24 hr Take 100 mg by mouth daily. 08/11/2019 omeprazole (PriLOSEC) 40 mg Capsule, Delayed Release(E.C.) Take 40 mg by mouth daily. 08/11/2019 documented as of this encounter Plan of Treatment Not on file documented as of this encounter Procedures Procedure Name Priority Date/Time Associated Diagnosis Comments ECHO COMPLETE Routine 05/12/2021 4:34 PM EDT Tachycardia documented in this encounter Results * ECHO COMPLETE (05/12/2021 4:34 PM EDT) Anatomical Region Laterality Modality Other 05/12/2021 1:04 PM EDT Narrative 05/12/2021 4:54 PM EDT ?[facility] ?[address] ? [place] [address] ?Voice: ?Fax: ? Echocardiogram Report Name: CONSTANZA BIRMINGHAM ? Study Date: 05/12/2021 01:04 PM ? BP: 137/69 mmHg ? Patient Location: : 1980 ? Height: 175 cm ?Account: [id number] Age: 40 yrs ? Weight: 107 kg Gender: Male ?BSA: 2.2 m2 Ordering Physician: GERALDO COX Referring Physician: GERALDO COX Interpretation Summary Left ventricle is of normal size. Wall thickness is mildly increased. There are no segmental wall motion abnormalities. Left ventricular ejection fraction is estimated visually at 65-70%. The right ventricle is of normal size. Right ventricular systolic function is normal. There is no significant valve disease. Procedure Complete-00691. Suboptimal quality. There is normal sinus rhythm. Left Ventricle Left ventricle is of normal size. Wall thickness is mildly increased. Left ventricular ejection fraction is estimated visually at 65-70%. Global longitudinal strain is measured at -15.5 %. There are no segmental wall motion abnormalities. Right Ventricle The right ventricle is of normal size. Right ventricular systolic function is normal. Left Atrium The left atrium is normal. Right Atrium The right atrium is normal. Aortic Valve The aortic valve is tricuspid. The aortic valve is mildly thickened. There is no aortic stenosis. There is no aortic regurgitation. Mitral Valve The mitral valve is structurally normal. There is no mitral stenosis. There is trace mitral regurgitation. Tricuspid Valve The tricuspid valve is structurally normal. There is no tricuspid stenosis. There is no tricuspid regurgitation. Pulmonic Valve The pulmonic valve appears to be structurally normal. There is no valvular pulmonic stenosis. There is no pulmonic valve regurgitation. Great Arteries The aortic root is of normal size. No abnormalities are identified. Ascending aorta is normal in size. Venous Inferior vena cava is normal in size. Inferior vena cava collapse greater than 50% with respiration. Pericardium/Pleural The pericardium appears normal. Ejection Fraction ?2D Measurements ? Volumes LV Biplane EF: 67.9 % ? IVSd: 1.2 cm ? LA Volume Index: ?LVIDd: 4.3 cm ?LVIDs: 2.8 cm ?26.2 ml/m2 ?LVPWd: 1.1 cm ?EDV Biplane: 113.5 ml ? EDV Biplane Index: 51.3 ?LV mass(C)d: 173.7 grams ? ESV Biplane: 36.4 ml ?LV mass(C)dI: 78.5 grams/m2 ?ESV Biplane Index: 16.4 ?Ao root diam: 3.5 cm ?Ao root diam index: 1.6 ?asc Aorta Diam: 3.1 cm ?LVOT diam: 2.2 cm ?TAPSE_phl: 2.8 cm Doppler ?3D/Strain/TomTec MV E max ed: 64.2 cm/sec LV GLS (S3P): -15.5 % MV A max ed: 63.2 cm/sec MV E/A: 1.0 MV dec time: 0.14 sec Lat Peak E' Ed: 11.9 cm/sec E/ e' (lat): 5.4 Med Peak E' Ed: 9.7 cm/sec E/e' (med): 6.6 E/e' Average: 6.0 Procedure Note Joshua Mccallum MD - 05/12/2021 [place] [address] [employer] [place] [address] Voice: Fax: Echocardiogram Report Name: CONSTANZA BIRMINGHAM Study Date: 05/12/2021 01:04 PM BP: 137/69mmHg Patient Location: : 1980 Height: 175 cm Account:[id number] Age: 40 yrs Weight: 107 kg Gender: Male BSA: 2.2 m2 Ordering Physician: GERALDO COX Referring Physician: GERALDO COX Interpretation Summary Left ventricle is of normal size. Wall thickness is mildly increased.There are no segmental wall motion abnormalities. Left ventricular ejection fractionis estimated visually at 65-70%. The right ventricle is of normal size. Right ventricular systolic functionis normal. There is no significant valve disease. Procedure Complete-02414. Suboptimal quality. There is normal sinus rhythm. Left Ventricle Left ventricle is of normal size. Wall thickness is mildly increased.Left ventricular ejection fraction is estimated visually at 65-70%. Globallongitudinal strain is measured at -15.5 %. There are no segmental wall motionabnormalities. Right Ventricle The right ventricle is of normal size. Right ventricular systolic functionis normal. Left Atrium The left atrium is normal. Right Atrium The right atrium is normal. Aortic Valve The aortic valve is tricuspid. The aortic valve is mildly thickened. Thereis no aortic stenosis. There is no aortic regurgitation. Mitral Valve The mitral valve is structurally normal. There is no mitral stenosis.There is trace mitral regurgitation. Tricuspid Valve The tricuspid valve is structurally normal. There is no tricuspidstenosis. There is no tricuspid regurgitation. Pulmonic Valve The pulmonic valve appears to be structurally normal. There is novalvular pulmonic stenosis. There is no pulmonic valve regurgitation. Great Arteries The aortic root is of normal size. No abnormalities are identified.Ascending aorta is normal in size. Venous Inferior vena cava is normal in size. Inferior vena cava collapse greaterthan 50% with respiration. Pericardium/Pleural The pericardium appears normal. Ejection Fraction 2D Measurements Volumes LV Biplane EF: 67.9 % IVSd: 1.2 cm LA VolumeIndex: LVIDd: 4.3 cm LVIDs: 2.8 cm 26.2 ml/m2 LVPWd: 1.1 cm EDV Biplane:113.5 ml EDV BiplaneIndex: 51.3 LV mass(C)d: 173.7 grams ESV Biplane: 36.4ml LV mass(C)dI: 78.5 grams/m2 ESV BiplaneIndex: 16.4 Ao root diam: 3.5 cm Ao root diam index: 1.6 asc Aorta Diam: 3.1 cm LVOT diam: 2.2 cm TAPSE_phl: 2.8 cm Doppler 3D/Strain/TomTec MV E max ed: 64.2 cm/sec LV GLS (S3P): -15.5 % MV A max ed: 63.2 cm/sec MV E/A: 1.0 MV dec time: 0.14 sec Lat Peak E' Ed: 11.9 cm/sec E/ e' (lat): 5.4 Med Peak E' Ed: 9.7 cm/sec E/e' (med): 6.6 E/e' Average: 6.0 Geraldo Cox MD ECHO ORDERABLES documented in this encounter Visit Diagnoses Diagnosis Tachycardia Tachycardia, unspecified documented in this encounter Care Teams Information Technology Technician Relationship Specialty Start Date End Date Marylou Pineda PA [address] [address] PCP - General Family Medicine 08/12/19 documented as of this encounter
--- OUTSIDE RECORDS SUMMARY | 2024-02-11 20:39 | XMS_ITS | Encounter Summary ---
[place] [address] Care Team Providers Care Bus System Operator Name Role Phone Marylou Pineda Primary Care Provider [phone] Reason for Referral * Consultation (Urgent) - Closed Specialty Diagnoses / Procedures Referred By Contac t Referred To Contact Neurology Diagnoses Postural orthostatic tachycardia syndrome Orthostatic hypotension Geraldo Cox MD [address] [place] [address] [facility] Neurology [address] [place] [phone] Referral ID Status Reason Start Date Expiration Date V isits Requested Visits Authorized [id number] Closed Consult, Test & Treat 03/30/2021 03/30/2022 1 1 Encounter Details Date Type Department Care Team (Latest Contact Info) Description 03/30/2021 Transcribe [place] [address] Geraldo Cox MD [address] [place] [id number] Postural orthostatic tachycardia syndrome; Orthostatic hypotension Social History Tobacco Use Types Packs/Day Years [...] as of this encounter Visit Diagnoses Diagnosis Postural orthostatic tachycardia syndrome Tachycardia, unspecified Orthostatic hypotension documented in this encounter Care Teams Bus System Operator Relationship Specialty Start Date End Date Marylou Pineda PA [address] [address] PCP - General Family Medicine 08/12/19 documented as of this encounter
--- OUTSIDE RECORDS SUMMARY | 2024-02-11 20:39 | XMS_ITS | Clinical Summary ---
Author Organization [facility] Address [facility] [place] [address] Care Team Providers Care Director Diversity Name Role Phone Marylou Pineda Primary Care Provider [phone] Allergies Active Allergy Reactions Criticality Noted Date Comments Sulfa (Sulfonamide Antibiotics) Other (See Comments) 10/21/2009 Unknown As a child Medications Medication Sig Dispensed Refills Start Date End Date Status metoprolol succinate XL (Toprol-XL) 100 mg Tablet Sustained Release 24 hr Take 100 mg by mouth daily. 08/11/2019 Active omeprazole (PriLOSEC) 40 mg Capsule, Delayed Release(E.C.) Take 40 mg by mouth daily. 08/11/2019 Active multivitamin with minerals and lutein Tablet 0 Refill(s) 05/29/2022 Active calcium carbonate/vitamin D3 (VITAMIN D-3 ORAL) Take by mouth daily. Active VITAMIN B COMPLEX ORAL Take by mouth daily. Active chlorel/chloroph/D3/B2/ FA/iron (CHLORELLA CAPS ORAL) Take by mouth daily. Active minerals (MULTIMINERAL PLUS ORAL) Take by mouth daily. Active ACTIVATED CHARCOAL ORAL Take by mouth daily. Active [place] [facility] [place]; Combo Route) route daily. Active Active Problems Problem Noted Date Diagnosed Date POTS (postural orthostatic tachycardia syndrome) 07/10/2022 Assessment & Plan (07/10/2022 3:58 PM EDT): Mr. Song presents for follow up for [...] therapies first which is more than reasonable. Precordial pain-- likely noncardiac 08/26/2019 Overview (08/26/2019): Normal ETT Normal coronary CTA-- though LAD is intramyocardial for part of its course. Palpitations 08/12/2019 Social History Tobacco Use Types Packs/Day Years Used Date Smoking Tobacco: Never Smokeless Tobacco: Never Sex and Gender Information Value Date Recorded Sex Assigned at Not on file Gender Identity Not on file Sexual Orientation Not on file Last Filed [...] Mass Index 35.66 07/10/2022 3:24 PM EDT Plan of Treatment Health Maintenance Due Date Last Done Comments HIV screen 1998 Lipid Screening 1998 Hepatitis B vaccine (0-59 yrs) (1) 07/26/1999 Tetanus/Diphtheria/Pertussis Vaccines (1 - Tdap) 07/25 Diabetes Screening (HgbA1C or Glucose) 06/03/2023 Covid-19 Vaccine (1 - 2023- season) 2023 Influenza (Flu) vaccine (1 o f 1 - Influenza standard series) 10/13/2023 Hepatitis C Screening Completed 06/02/2020 Procedures Procedure Name Priority Date/Time Associated Diagnosis Comments HC HEPATITIS C ANTIBODY Routine 06/02/2020 1:04 PM EDT Myalgia Sleep disorder Vitamin D deficiency Fatigue, unspecified type Bone disorder COMPREHENSIVE METABOLIC PANEL Routine 06/02/2020 1:04 PM EDT Myalgia Sleep disorder Vitamin D deficiency Fatigue, unspecified type Bone disorder from Last 3 Months or Most Recently Relevant to Health Maintenance Results * Hepatitis C Antibody (06/02/2020 1:04 PM EDT) Hepatitis C Antibody Negative Negative [facility] Blood specimen (specimen) 06/02/2020 1:04 PM EDT 06/02/2020 4:15 PM EDT Narrative Resulting Agency Comment Spec In Lab Paxton Yeung MD CHEMISTRY ORDERABLES [facility] [place] [address] * (ABNORMAL) Comprehensive metabolic panel (non-fasting) (06/02/2020 1:04 PM EDT) Glucose 97 65 - 199 mg/dL [facility] Comment:Diabetes: >=200 mg/d L plus symptoms Blood Urea Nitrogen 15 10 - 20 mg/dL [facility] Creatinine 0.79(L) 0.80 - 1.50 mg/dL [facility] Sodium 137 135 - 145 mmol/L [facility] Potassium 4.3 3.5 - 5.0 mmol/L [facility] Comment: Please note: ??Patients with WBC >100,000 may have falsely elevated Potassium levels. ??For accurate Potassium quantification in these patients send serum separator tube (gold top) for subsequent determinations. ??Contact the Clinical Chemistry Laboratory if there are any questions. Chloride 100 98 - 107 mmol/L [facility] Carbon Dioxide 25 22 - 31 mmol/L [facility] Anion Gap 12 5 - 15 mmol/L [facility] Calcium 9.6 8.5 - 10.5 mg/dL [facility] Protein, Total 7.9 6.1 - 8.0 gm/dL [facility] Albumin 4.5 3.2 - 5.2 gm/dL [facility] Aspartate Aminotransferase 23 0 - 39 unit/L [facility] Alanine Aminotransferase 30 0 - 55 unit/L [facility] Alkaline Phosphatase 74 40 - 130 unit/L [facility] Bilirubin, Total 0.4 0.2 - 1.3 mg/dL [facility] Est Glomerular Filtration Rate 113 >=60 mL/min/1. 73 m?? [facility] Comment: This patient? s estimated glomerular [...] In Lab Paxton Yeung MD CHEMISTRY ORDERABLES [facility] [address] [place] [address] from Last 3 Months or Most Recently Relevant to Health Maintenance Care Teams Director Diversity Relationship Specialty Start Date End Date Marylou Pineda PA [address] [place] [address] PCP - General Family Medicine 08/12/19
--- OUTSIDE RECORDS SUMMARY | 2024-02-11 20:39 | XMS_ITS | Encounter Summary ---
[facility] [place] [address] Care Team Providers Care Flavor Room Worker Name Role Phone Marylou Pineda Primary Care Provider [phone] Reason for Visit * Reason Onset Date Comments Appointment 08/08/2021 Encounter Details Date Type Department Care Team (Late st Contact Info) Description 08/08/2021 [place] [id number] Diego Carter MD [facility] [place] [address] Appointment Social History Tobacco Use Types Packs/Day Years Used Date Smoking Tobacco: Never Smokeless Tobacco: Never Sex and Gender Information Value Date Recorded Sex Assigned at Not on file Gender Identity Not on file Sexual Orientation Not on file documented as of this encounter Miscellaneous Notes * Telephone Encounter - Krysta Carlton - 08/09/2021 8:22 AM EDT Patient notified of appointment changes, last appointment was missed on 07/27 and appointment was rescheduled to 09/26. * Telephone Encounter - Shayy Maldonado - 08/08/2021 2:52 PM EDT Copied from CRM #[id number]. Topic: Specialty Dept CRMs - Generic Call >> Aug 08, 2021 2:15 PM Pricilla Reddy wrote: Specialist: Diego Carter MD Relationship (if other than patient-full name): Kosta Song Reason for Call: Patient called in stating he has an appointment for Autonomic testing EMG, for tomorrow 08/08. This agent was unable to locate the appointment for tomorrow and only located an appointment for 09/26/21. Patient states that the 09/26 appointment had been moved up and looking to confirm and instructions on the EMG testing. Please call patient to verify appointment, thank you! documented in this encounter Plan of Treatment Not on file documented as of this encounter Visit Diagnoses Not on filedocumented in this encounter Care Teams Flavor Room Worker Relationship Specialty Start Date End Date Marylou Pineda PA [address] [place] [id number] PCP - General Family Medicine 08/12/19 documented as of this encounter
--- OUTSIDE RECORDS SUMMARY | 2024-02-11 20:40 | XMS_ITS | Encounter Summary ---
[place] [address] Care Team Providers Care Oiler Bander Name Role Phone Marylou Pineda Primary Care Provider [phone] Encounter Details Date Type Department Care Team (Late st Contact Info) Description 08/12/2019 Orders Only Cardiology at [address] [phone] Nadya Radford RN Palpitations Social History Tobacco Use Types Packs/Day Years Used Date Smoking Tobacco: Never Assessed Sex and Gender Information Value Date Recorded Sex Assigned at Not on file Gender Identity Not on file Sexual Orientation Not on file documented as of this encounter Plan of Treatment Not on file documented as of this encounter Results * EKG 12 Lead (08/17/2019 10:09 AM EDT) Ventricular rate 75 BPM MUSE SYSTEM Atrial Rate 75 BPM MUSE SYSTEM P-R Interval 150 ms MUSE SYSTEM QRS Duration 82 ms MUSE SYSTEM Q-T Interval 376 ms MUSE SYSTEM QTC Calculated (Bezet) 419 ms MUSE SYSTEM Calculated P White 23 degrees MUSE SYSTEM Calculated R White 34 degrees MUSE SYSTEM Calculated T White 21 degrees MUSE SYSTEM INTERPRETATION Normal sinus rhythm Normal ECG No previous ECGs available Confirmed by MD BIANCHI BRUCE ([id number]) on 08/18/2019 9:27:12 AM MUSE SYSTEM 08/17/2019 10:0 9 AM EDT 08/18/2019 9:27 AM EDT Mahendra Bianchi MD ECG ORDERABLES MUSE SYSTEM documented in this encounter Visit Diagnoses Diagnosis Palpitations documented in this encounter Care Teams Oiler Bander Relationship Specialty Start Date End Date Marylou Pineda PA [address] [place] [address] PCP - General Family Medicine 08/12/19 documented as of this encounter
--- OUTSIDE RECORDS SUMMARY | 2024-02-11 20:40 | XMS_ITS | Encounter Summary ---
Author Organization [facility] Address [facility] [place] [address] Care Team Providers Care Crop Duster Helper Name Role Phone Marylou Pineda Primary Care Provider [phone] Encounter Details Date Type Department Care Team (Late st Contact Info) Description 08/26/2019 Telephone Cardiology at [address] [place] [address] Mahendra Shay MD [facility] [place] [address] Social History Tobacco Use Types Packs/Day Years Used Date Smoking Tobacco: Never Smokeless Tobacco: Never Sex and Gender Information Value Date Recorded Sex Assigned at Not on file Gender Identity Not on file Sexual Orientation Not on file documented as of this encounter Miscellaneous Notes * Telephone Encounter - Mahendra Shay MD - 08/26/2019 3:15 PM EDT I called Dale and let him know that his CT showed absolutely no evidence of coronary disease. 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 His normal stress test also supports this. When symptomatic (I don't think his is), beta arsenio therapy is first line. PCI isreserved for medically refractory cases. I don't think invasive coronary angiography is indicated. I'll pass this on to Dr. Alejo and Marylou Pineda. Mahendra Shay MD [facility] documented in this encounter Plan of Treatment Not on file documented as of this encounter Visit Diagnoses Diagnosis Precordial pain-- likely noncardiac Precordial pain documented in this encounter Care Teams Crop Duster Helper Relationship Specialty Start Date End Date Marylou Pineda PA [address] [address] PCP - General Family Medicine 08/12/19 documented as of this encounter
--- OUTSIDE RECORDS SUMMARY | 2024-02-11 20:40 | XMS_ITS | Encounter Summary ---
[place] [address] Care Team Providers Care Infant Room Teacher Name Role Phone Marylou Pineda Primary Care Provider [phone] Reason for Referral * Diagnostic Test (Routine) - Closed Specialty Diagnoses / Procedures Referred By Valeriy gore Referred To Contact Radiology Diagnoses Chest discomfort Procedures CT Angiogram Coronary Arteries Mahendra Shay MD [facility] [place] [address] [facility] [place] [address] Referral ID Status Reason Start Date Expiration Date V isits Requested Visits Authorized [id number] Closed Specialty Service Requested 08/17/2019 02/13/2020 1 1 Reason for Visit * Consultation (Urgent) - Specialty Diagnoses / Procedures Referred By Contac t Referred To Contact Cardiology Diagnoses Palpitations Tachycardia, unspecified Edema, unspecified Other chest pain Marylou Pineda PA [address] [place] [address] [facility] [address] [place] [phone] Referral ID Status Reason Start Date Expiration Date V isits Requested Visits Authorized [id number] Consult, [facility] PCP Updated and/or Approved 08/11/2019 03/05/2020 6 6 Encounter Details Date Type Department Care Team (Late st Contact Info) Description 08/17/2019 10:00 AM EDT Office Visit Cardiology at [place] [phone] Mahendra Shay MD [facility] [address] Palpitations; Chest discomfort Social History Tobacco Use Types Packs/Day Years Used Date Smoking Tobacco: Never Smokeless Tobacco: Never Sex and Gender Information Value Date Recorded Sex Assigned at Not on file Gender Identity Not on file Sexual Orientation Not on file documented as of this encounter Last Filed Vital Signs Vital Sign Reading Time Taken Comments Blood Pressure 128/74 08/17/2019 9:56 AM EDT Pulse 80 08/17/2019 9:56 AM EDT Temperature - - Respiratory Rate - - Oxygen Saturation 96% 08/17/2019 9:56 AM EDT Inhaled Oxygen Concentration - - Weight 105.7 kg (233 lb) 08/17/2019 9:56 AM EDT Height 177.8 cm (5' 10) 08/17/2019 9:56 AM EDT Body Mass Index 33.43 08/17/2019 9:56 AM EDT documented in this encounter Progress Notes * Mahendra Shay MD - 08/17/2019 10:00 AM EDT Images from the original note were not included. CARDIOVASCULAR MEDICINE [place] [address] Initial Visit Subjective Identification Kosta Song is a 39 y.o. patient of MARIA M Medina and Odilon Alejo MD referred on August 10 for second opinion regarding multiple cardiac symptoms. History Mr. Song is here alone today. His history is gleaned from interview with him and review of his records which include his recent echo, ETT, Holter monitor, event monitor, and cardiac consultation at [facility] with Dr. Nadia Diaz in March. He tells me he was in his usual state of health until about a year and a half ago when he began developing symptoms of discomfort in his chest. Initially, this was intermittent but recently, it is become nearly constant. It is not consistently related to physical activity, movement, or eating. In addition he has felt quite fatigued. He has also noticed his heart racing. On a recent stress test 2018, he achieved a workload of 10.5 METS. His heart rate at rest was 96, randall to 117 with standing and randall to 136 by the end of stage I, 158 by the end of stage II, and 172 with the end of stage III when exercise ended. He has been started on metoprolol for his symptoms of palpitations andit seem to have helped. His symptoms are such that he has missed work. Regarding risk factors for coronary disease, he describes his diet as sometimes good, sometimes bad. His weight reached a high of 240 pounds but he is working to bring this down and is currently at 233 pounds at a height of 5 feet 10 inches. He smoked 1 pack/day and quit in 2011. He is not known tohave hypertension or diabetes. There is no family history of premature heart disease. Regarding physical activity, this limited to the exercise he gets at work working for the [employer] where he has worked for the past 20 years. Regarding review of systems, he has had no trouble with urination, no trouble with bowels. No unintentional weight gain or weight loss, no fever or chills. He has had occasional mild swelling in his legs. Regarding his mood, he acknowledges he is been dealing with anxiety and depression for some time now. He has sought counseling but not consistently. He has not tried anti-depressant medication. Regarding his social history, he lives with his 14-year-old son. He lives in [place], [place] and works for the [employer]. 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 He takes no medications other than those that are prescribed. As noted above, he quit smoking at age 31 and smoked about 1 ppd previously. Regarding past medical history, he has a history of acid reflux. He has no other significant past medical problems. Medications Current Outpatient Medications: ??? metoprolol succinate XL (Toprol-XL) 100 mg Tablet Sustained Release 24 hr, Take 100 mg by mouthdaily., Disp: , Rfl: ??? omeprazole (PriLOSEC) 40 mg Capsule, Delayed Release(E.C.), Take 40 mg by mouth daily., Disp: ,Rfl: Objective Physical Exam BP 128/74 Pulse 80 Ht 177.8 cm (5' 10) Wt 105.7 kg (233 lb) SpO2 96% BMI 33.43 kg/m?? , Body mass index is 33.43 kg/m??. General: Pleasant. No distress. Skin: Warm and dry. HEENT: Anicteric sclera. Neck: JVP not elevated. No AJR. No carotid bruits. Chest: Clear to auscultation Heart: No heave. Regularly regular rhythm. Normal S1 and S2. No gallops. No murmurs. Abdomen: Moderate adiposity. Soft. Nontender. Extremities: No edema. PROSPECTING OBSERVER: Normal mentation. Psych: Mildly depressed affect. I personally reviewed the ECG which shows sinus rhythm with no abnormalities. His echocardiogram was read at [facility] as showing normal LV function with no segmental wall motion abnormalities, normal RV size and function with normal estimated PA pressure, no valve disease, and no pericardial effusion. His Holter monitor and event monitor showed normal variation in sinus rhythm with no evidence of arrhythmias. His treadmill stress test showed exercise tolerance of 10.5 METS with no chest pain, no arrhythmias, and no ischemic changes on the EKG. Labs done in July of this year at [place] showed the following: CRP l 0.17, white count 4.9, hemoglobin 15.2, platelet count 241, electrolytes and bicarb normal, BUN 18, creatinine 0.7, random glucose 108, calcium 9.0, ALT and AST normal, alkaline phosphatase normal, albumin normal, protein normal, and total bilirubin normal. Troponin was less than 0.06. Assessment and Plan In brief, he is an early middle aged man with minimal medical history who presents for a second opinion for persistent chest discomfort, palpitations, and exercise intolerance for the past 18 months which remains undiagnosed despite lab tests, echo, ECG, ETT, and arrhythmia monitors. His symptoms are consistent with atypical angina and he has risk factors of poor diet, former smoking, and sedentary lifestyle and abdominal adiposity. The possibilities include atypical angina, noncardiac intrathoracic pathology, and somatic symptoms stemming from depression. Myocarditis is very unlikely considering his normal troponin. Pulmonary embolism is also very unlikely given the chronicity of his symptoms, normal RV function and PASP, and lack of risk factors. His chest is only very mildly tender to palpation arguing against chest wall pain. The chronicity of his discomfort rules outaortic dissection. Missing an atypical manifestation of coronary disease can be devastating. I considered stress testing with imaging vs anatomic imaging with coronary CT angiography. These competing approaches were compared in the Recommended CCTA as may detect subclinical disease. I broached idea that depression can sometimes cause physical symtoms and that treatment can be helpful. ??? Coronary CT angiogram ??? If normal consider possibility of somatic manifestation of depression and trial of antidepressant medication. ??? Follow up with results of CT. Mahendra Shay MD [facility] References 3 clinical questions: ??? Is the chest discomfort substernal? Are symptoms predictably brought on by exertion or emotional stress? Are symptoms relieved by rest or nitroglycerin? 3 categories: ??? Definite/Typical Angina (3/3 features present) ??? Probable/Atypical Angina (2/3) ??? Nonanginal Pain (0-1/3) Probability of Stenosis > 50% on Angiography CP Category Men Women >50 yrs <50 yrs >50 yrs <50 yrs Definite/Typical 0.95 0.87 0.74 0.59 Probable/Atypical 0.73 0.54 0.37 0.30 Nonangina Pain 0.20 0.08 0.07 0.04 Chaitman et al. Circulation 1981 ACCF/AHA/ASE/ASNC/HFSA/HRS/SCAI/SCCT/SCMR/STS 2013 Multimodality Appropriate Use Criteria for the Detection and Risk Assessment of Stable Ischemic Heart Disease. JACC 2014. cc: ?? MARIA M Medina [address] / [facility] [id number] documented in this encounter Plan of Treatment Not on file documented as of this encounter Procedures Procedure Name Priority Date/Time Associated Diagnosis Comments EKG 12-LEAD Routine 08/17/2019 10:09 AM EDT Palpitations documented in this encounter Results * CT Angiogram Coronary Arteries (08/26/2019 8:35 AM EDT) Anatomical Region Laterality Modality Cardiac Computed Tomogra phy Impressions 08/26/2019 11:57 AM EDT Coronary calcium score of 0, consistent with no detectable calcified atherosclerotic plaque burden. 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 Hemodynamic significance is suspected and interventional coronary angiography may allow to confirm or refute this. Left circumflex artery is tortuous at the proximal aspect. Course of the first obtuse marginal is similar to what would be expected of a ramus intermedius. Distally ??the circumflex artery cannot be followed along the atrioventricular groove, but ends into a second marginal branch. Thin membrane along the interatrial septum can be an indirect sign of a patent foramen ovale. No definite evidence of a patent foramen ovale on this exam. The size of the left atrium is borderline. The main pulmonary artery is mildly prominent. Very small hiatal hernia. Thank you for letting us participate in the care of this patient. For questions regarding this report, please contact the number below. ? Electronically signed by: Erin Monzon [facility] ([phone]), at 08/26/2019 11:57 AM Narrative 08/26/2019 11:57 AM EDT EXAMINATION: CT ANGIOGRAM CORONARY ARTERIES CLINICAL HISTORY: CAD suspected, 10yr CHD risk < 10%, prior testing normal 39 yo former smoker with persistent chest pain. Normal ETT without imaging and echo. COMPARISON: None. TECHNIQUE: 3 mm thick axial contiguous sections through the heart were obtained via ECG-gated axial mode acquisition without intravenous contrast. After time bolus, 0.625 mm thick axial contiguous sections were obtained through the heart via ECG-gated helical acquisition during intravenous administration of 94 cc Omnipaque 350. Post-processing was performed on an independent computer workstation including curved multiplanar reformats, coronary calcium scoring, and 3D reconstructions. FINDINGS: Coronary calcium score: Left main: ??Agatston score: 0; Volume score: 0; Mass: 0 mg Left anterior descending: ??Agatston score: 0; Volume score: 0; Mass: 0 mg Left circumflex: ??Agatston score: 0; Volume score: 0; Mass: 0 mg Right coronary: ??Agatston score: 0; Volume score: 0; Mass: 0 mg TOTAL: ??Agatston score: 0; Volume score: 0; Mass: 0 mg Atherosclerotic plaque burden, based on Agatston score: None detected. Percentile rank, based on age, race/ethnicity, and gender: N/A Reference: Diego RL, Wing H, Jessica R, et al. ??Distribution of coronary artery calcium by race, gender, and age: results from the Multi-Ethnic Study of Atherosclerosis (ADAME). Circulation. 2006;113(1):30-37. Coronary arteries: Left main: No demonstrable plaque or stenosis. Left anterior descending: No demonstrable plaque or stenosis. Immediately distal to the origin of the first diagonal branch the left anterior descending artery has an intramural course along the right aspect of the interventricular septum. The myocardial bridging measures up to 5 mm in thickness. The distal LAD is again seen in the interventricular groove. Diagonal branches: No demonstrable plaque or stenosis. Left Circumflex: No demonstrable plaque or stenosis. Tortuous course just distal to its origin. Distally the left circumflex artery follows the expected course of a second obtuse marginal branch. Obtuse marginal branches: No demonstrable plaque or stenosis. The first obtuse marginal follows more a course that would be expected of a ramus intermedius. Right coronary: No demonstrable plaque or stenosis. Posterior descending: No demonstrable plaque or stenosis. Originates from the right coronary artery. Posterolateral branch: No demonstrable plaque or stenosis. Originates from the right coronary artery. Cardiac chambers and great vessels: In addition to bilateral superior and inferior pulmonary veins, a separate vein draining the right middle lobe is present. Small 5 mm diverticulum of the left atrium at the cranial aspect of the interatrial septum. A thin membrane parallel to the interatrial septum can be an indirect sign of a patent foramen ovale. Size of the left atrium is borderline normal to mildly enlarged. Normal caliber of the visualized thoracic aorta. Mildly prominent central pulmonary artery. No pericardial effusion. Pulmonary parenchyma, airways, pleura: Incompletely included. Visualized portions are unremarkable. Upper abdomen: Very small hiatal hernia. Skeletal Structures: Limited visualization without apparent abnormality. Procedure Note Erin Hopkins MD - 08/26/2019 EXAMINATION: CT ANGIOGRAM CORONARY ARTERIES CLINICAL HISTORY: CAD suspected, 10yr CHD risk < 10%, prior testingnormal 39 yo former smoker with persistent chest pain. Normal ETT without imagingand echo. COMPARISON: None. TECHNIQUE: 3 mm thick axial contiguous sections through the heart wereobtained via ECG-gated axial mode acquisition without intravenous contrast. Aftertime bolus, 0.625 mm thick axial contiguous sections were obtained through theheart via ECG-gated helical acquisition during intravenous administration of 94cc Omnipaque 350. Post-processing was performed on an independent computer workstation including curved multiplanar reformats, coronary calciumscoring, and 3D reconstructions. FINDINGS: Coronary calcium score: Left main: Agatston score: 0; Volume score: 0; Mass: 0 mg Left anterior descending: Agatston score: 0; Volume score: 0; Mass: 0mg Left circumflex: Agatston score: 0; Volume score: 0; Mass: 0 mg Right coronary: Agatston score: 0; Volume score: 0; Mass: 0 mg TOTAL: Agatston score: 0; Volume score: 0; Mass: 0 mg Atherosclerotic plaque burden, based on Agatston score: None detected. Percentile rank, based on age, race/ethnicity, and gender: N/A Reference: Diego RL, Maciej H, Jessica R, et al. ??Distribution ofcoronary artery calcium by race, gender, and age: results from the Multi-EthnicStudy of Atherosclerosis (ADAME). Circulation. 2006;113(1):30-37. Coronary arteries: Left main: No demonstrable plaque or stenosis. Left anterior descending: No demonstrable plaque or stenosis. Immediatelydistal to the origin of the first diagonal branch the left anterior descendingartery has an intramural course along the right aspect of the interventricularseptum. The myocardial bridging measures up to 5 mm in thickness. The distal LADis again seen in the interventricular groove. Diagonal branches: No demonstrable plaque or stenosis. Left Circumflex: No demonstrable plaque or stenosis. Tortuous course justdistal to its origin. Distally the left circumflex artery follows the expectedcourse of a second obtuse marginal branch. Obtuse marginal branches: No demonstrable plaque or stenosis. The firstobtuse marginal follows more a course that would be expected of a ramusintermedius. Right coronary: No demonstrable plaque or stenosis. Posterior descending: No demonstrable plaque or stenosis. Originates fromthe right coronary artery. Posterolateral branch: No demonstrable plaque or stenosis. Originates fromthe right coronary artery. Cardiac chambers and great vessels: In addition to bilateral superiorand inferior pulmonary veins, a separate vein draining the right middle lobeis present. Small 5 mm diverticulum of the left atrium at the cranial aspectof the interatrial septum. A thin membrane parallel to the interatrial septum canbe an indirect sign of a patent foramen ovale. Size of the left atrium isborderline normal to mildly enlarged. Normal caliber of the visualized thoracic aorta. Mildly prominentcentral pulmonary artery. No pericardial effusion. Pulmonary parenchyma, airways, pleura: Incompletely included. Visualized portions are unremarkable. Upper abdomen: Very small hiatal hernia. Skeletal Structures: Limited visualization without apparent abnormality. IMPRESSION Coronary calcium score of 0, consistent with no detectable calcified atherosclerotic plaque burden. 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 Hemodynamic significance is suspectedand interventional coronary angiography may allow to confirm or refute this. Left circumflex artery is tortuous at the proximal aspect. Course of thefirst obtuse marginal is similar to what would be expected of a ramusintermedius. Distally the circumflex artery cannot be followed along theatrioventricular groove, but ends into a second marginal branch. Thin membrane along the interatrial septum can be an indirect sign of apatent foramen ovale. No definite evidence of a patent foramen ovale on thisexam. The size of the left atrium is borderline. The main pulmonary artery ismildly prominent. Very small hiatal hernia. Thank you for letting us participate in the care of this patient. Forquestions regarding this report, please contact the number below. Mahendra Shay MD IMG CT ORDERABLES * EKG 12 Lead (08/17/2019 10:09 AM EDT) Ventricular rate 75 BPM MUSE SYSTEM Atrial Rate 75 BPM MUSE SYSTEM P-R Interval 150 ms MUSE SYSTEM QRS Duration 82 ms MUSE SYSTEM Q-T Interval 376 ms MUSE SYSTEM QTC Calculated (Bezet) 419 ms MUSE SYSTEM Calculated P [place] 23 degrees MUSE SYSTEM Calculated R [place] 34 degrees MUSE SYSTEM Calculated T [place] 21 degrees MUSE SYSTEM INTERPRETATION Normal sinus rhythm Normal ECG No previous ECGs available Confirmed by MD ARIAS, MAHENDRA ([id number]) on 08/18/2019 9:27:12 AM MUSE SYSTEM 08/17/2019 10:0 9 AM EDT 08/18/2019 9:27 AM EDT Mahendra Shay MD ECG ORDERABLES MUSE SYSTEM documented in this encounter Visit Diagnoses Diagnosis Palpitations Chest discomfort Other chest pain Chest discomfort Other chest pain documented in this encounter Care Teams Infant Room Teacher Relationship Specialty Start Date End Date Marylou Pineda PA [address] [address] PCP - General Family Medicine 08/12/19 documented as of this encounter
--- OUTSIDE RECORDS SUMMARY | 2024-02-11 20:40 | XMS_ITS | Encounter Summary ---
Author Organization [facility] [place] [address] Care Team Providers Care Supervisor Fitting Name Role Phone Marylou Pineda Primary Care Provider [phone] Reason for Referral * Diagnostic Test (Routine) - Closed Specialty Diagnoses / Procedures Referred By Valeriy t Referred To Contact Radiology Diagnoses Chest discomfort Procedures CT Angiogram Coronary Arteries Mahendra Shay MD [facility] [place] [address] [facility] [place] [address] Referral ID Status Reason Start Date Expiration Date V isits Requested Visits Authorized [id number] Closed Specialty Service Requested 08/17/2019 02/13/2020 1 1 Reason for Visit * Diagnostic Test (Routine) - Closed Specialty Diagnoses / Procedures Referred By Contac t Referred To Contact Radiology Diagnoses Chest discomfort Procedures CT Angiogram Coronary Arteries Mahendra Shay MD [facility] [place] [address] [facility] [place] [address] Referral ID Status Reason Start Date Expiration Date V isits Requested Visits Authorized [id number] Closed Specialty Service Requested 08/17/2019 02/13/2020 1 1 Encounter Details Date Type Department Care Team (Latest Contact Info) Description 08/26/2019 7:58 AM EDT - 08/26/2019 11:59 PM EDT Hospital Encounter CT Scan at [facility] [place] [address] Mahendra Shay MD [facility] [place] [address] Chest discomfort Discharge Disposition: Home Social History Tobacco Use [...] Name Priority Date/Time Associated Diagnosis Comments CT ANGIOGRAM CORONARY ARTERIES Routine 08/26/2019 8:35 AM EDT Chest discomfort documented in this encounter Results * CT [...] report, please contact the number below. ? Narrative 08/26/2019 11:57 AM EDT EXAMINATION: CT [...] age, race/ethnicity, and gender: N/A Reference: Diego GAMBOA, Maciej H, Jessica R, et al. ??Distribution of [...] below. Mahendra Shay MD IMG CT ORDERABLES documented in this encounter Visit Diagnoses Diagnosis Chest discomfort Other chest pain documented in this encounter Administered Medications Inactive Administered Medications - up to 3 most recent administrations Medication Order MAR Action Action Date Dose Rate Site iohexoL (OMNIPAQUE) 350 mg/mL solution 0-200 mL 0-200 mL, Intravenous, ONCE PRN, 1 dose, Starting on Sat08/26/19 at 0833, Until Sat08/26/19 at 0833, Per Protocol, Warning Vesicant/Irritant Medication , Radiology Contrast, Routine Given 08/26/2019 8:33 AM EDT 74 mLs documented in this encounter Care Teams Supervisor Fitting Relationship Specialty Start Date End Date Marylou Pineda PA [address] [place] [id number] PCP - General Family Medicine 08/12/19 documented as of this encounter
[2024-02-11 21:03] LABS: Abs Immature Grans 0.02 10^3/uL (0.0-0.06); Absolute Eosinophil Count 0.19 10^3/uL (0.0-0.7); Absolute Lymphocyte Count 1.62 10^3/uL (1.2-3.4); Absolute Monocyte Count 0.54 10^3/uL (0.1-0.8); Absolute Neutrophil Count 3.07 10^3/uL (1.2-6.7); Basophils % 1.8 %; Eosinophils % 3.4 %; HCT 48.9 % (40.0-50.0); HGB 16.5 g/dL (13.5-17.5); Immature Grans % 0.4 %; Lymphocytes % 29.2 %; MCH 31.3 pg (27.0-33.0); MCHC 33.7 % (32.0-36.0); MCV 93 fL (80-95); MPV 10.1 fL (8.0-11.0); Monocytes % 9.7 %; Neutrophils % 55.5 %; Platelet Count 275 10^3/uL (130-400); RBC 5.28 10^6/uL (4.36-5.78); RDW 12.2 % (11.8-14.1); RDW-SD 42.2 fL; WBC 5.54 10^3/uL (4.4-10.8)
[2024-02-11 21:11] LABS: ALT 39 U/L (16-63); AST 27 U/L (15-37); Albumin 3.5 g/dL (3.4-5.0); Alkaline Phosphatase 80 U/L (46-116); Anion Gap 5.8 mmol/L (3-11); BUN 14 mg/dL (7-18); Bilirubin, Total 0.46 mg/dL (0.2-1.0); CO2 29.2 mmol/L (21.0-32.0); CREATININE 0.9 mg/dL (0.70-1.30); Calcium 9.2 mg/dL (8.5-10.1); Chloride 107 mmol/L (98-107); Estimated GFR 108.68 (mL/min/1.73m2); Glucose 94 mg/dL (74-106); Potassium 3.9 mmol/L (3.5-5.1); Sodium 142 mmol/L (136-145); Total Protein 7.7 g/dL (6.4-8.2)
== END 2024-02-11 20:36 | disposition home or self-care (01) ==
LOC: NCHCN 20:35
PROVIDERS: PCP Physician Assistant; Visit Provider Physician Assistant
DX: G90.A Postural orthostatic tachycardia syndrome [POTS] (principal)
CPT/HCPCS: 80053; 85025

== ENCOUNTER 2024-06-15 02:25 | Outpatient (CLI) | payer MEDICAID, SELFPAY ==
--- NOTE | 2024-06-15 21:29 | W.PFT ---
Date of service: 06/15/24 Time of Service: 08:07 Pulmonary Function Test Result Indications: Dyspnea Interpretation Spirometry: No airflow limitation Lung Volumes: Normal lung volumes Diffusion Capacity: Normal diffusion Airway Pressure: Normal airways resistance Impression Normal pulmonary function testing Clinical Correlation therefore is recommended.
== END 2024-06-15 02:26 | disposition home or self-care (01) ==
LOC: RT 02:26
PROVIDERS: PCP Physician Assistant; Visit Provider Student in an Organized Health Care Education/Training Program
DX: R06.00 Dyspnea, unspecified (principal)
CPT/HCPCS: 94726; 94729; 94010